=== PATIENT | female | born 1935 | race Caucasian/White ===

== ENCOUNTER 2016-09-10 10:34 | Emergency (ER) | payer MEDICARE, OTHER ==
[~2016-09-10] VITALS: Ht 165.1 cm; Wt 68.0 kg
[~2016-09-10 10:34] MED LIST: ALN70T; ALN70T PO; ASP325T; ASP81TEC PO; CALC-80 PO; CALC600T PO; CARV3.12; CARV6.252 PO; CLOP75TA PO; CRAN1TAB PO; DILT60TA PO; DLT30T PO; FAMO20TA13 PO; FRSM20T PO; ISM30TCR PO; ISOS30TA3 PO; MEXI200C PO; NIA500ERT PO; NIAC100045 PO; OMG1KC PO; PNT40TEC; POTA10CA43 PO; PRAV80TA2 PO; PROVASTATIN; RAMI10CA PO; RANI150C11 PO; RANI75TA30 PO; RMP5C PO; RNT150T PO
--- NOTE | 2016-09-10 11:59 | ED Lower Extremity ---
General Chief Complaint: Lower Extremity Stated Complaint: FALL/LEFT FOOT PAIN Nursing Triage Note: c/o pain/swelling to left foot/ankle. Pt accidently sat on her foot 3 weeks ago. Nursing Sepsis Screen: No Definite Risk Source: patient Exam Limitations: no limitations History of Present Illness Time seen by provider: 11:43 Initial Comments Here with report of left foot and ankle pain. States that she was sitting on her foot about 3 weeks ago and apparently her foot fell asleep. She then stood and rolled her foot medially. She complains of pain to the mid foot and lateral ankle. Denies other injury. States that has been having continued pain and swelling since onset of injury. Onset: other (3 weeks) Severity: mild, moderate Pain/Injury Location: left foot, left ankle Method of Injury: twisted Modifying Factors: Improves With Immobilization, Worse With Movement Allergies and Home Medications Allergies Coded Allergies: Penicillins (Unverified Allergy, Mild, 04/19/09) Home Medications Alendronate Sodium 70 Mg Tab 70 MG PO FRIDAY (Reported) Aspirin 81 Mg Tabec 81 MG PO HS (Reported) Calcium Carbonate/Vitamin D3 1 Each Tablet 1 TAB PO TID (Reported) Carvedilol 6.25 Mg Tablet 6.25 MG PO BID (Reported) Clopidogrel Bisulfate 75 Mg Tablet 75 MG PO DAILY (Reported) Cranberry Ext/C/L. Sporogenes 1 Each Tablet 1 TAB PO DAILY (Reported) Furosemide 20 Mg Tab #30 10 MG PO DAILY@0700 Prescribed by: LUZ BARROW on 11/09/13 1458 Isosorbide Mononitrate 30 Mg Tab.sr.24h 30 MG PO DAILY (Reported) [place] 3 Polyunsat Fatty Acids 1,000 Mg Cap 1,000 MG PO TID (Reported) Potassium Chloride 10 Meq Capsule.sa #1 10 MEQ PO DAILY Prescribed by: LUZ BARROW on 11/09/13 1504 Ranitidine Hcl 150 Mg Capsule #1 150 MG PO BID Prescribed by: LUZ BARROW on 11/09/13 1504 Constitutional: see HPI Respiratory: no symptoms reported Cardiovascular: no symptoms reported Musculoskeletal: see HPI joint pain joint swelling muscle pain Skin: no symptoms reported Past Upztnki-Mhwrfk-Yyalti Hx Patient Social History Alcohol Use: Denies Use Recreational Drug Use: No Smoking Status: Never a Smoker Recent Foreign Travel: No Contact w/Someone Who Travel: No Recent Infectious Disease Expo: No Recent Hopitalizations: No Physical Abuse Screen: No Sexual Abuse: No Immunizations Up To Date Date of Pneumonia Vaccine: Sep 01, 2008 Date of Influenza Vaccine: Jun 01, 2013 Surgeries HX Surgeries: Yes (cardiac stents) Surgeries: Appendectomy, Hysterectomy Respiratory Hx Respiratory Disorders: No Cardiovascular Hx Cardiac Disorders: Yes (STENTS X 4, CHF) Cardiac Disorders: Heart Attack Neurological Hx Neurological Disorders: No Reproductive System Hx Reproductive Disorders: No Genitourinary Hx Genitourinary Disorders: Yes Genitourinary Disorders: UTI-Chronic Gastrointestinal Hx Gastrointestinal Disorders: No Musculoskeletal Hx Musculoskeletal Disorders: No Endocrine Hx Endocrine Disorders: No HEENT HX ENT Disorders: No Cancer Hx Cancer: Yes (BASIL CELL CARCINOMA) Psychosocial Hx Psychiatric Problems: No Integumentary HX Skin/Integumentary Disorder: No Blood Transfusions Hx Blood Disorders: No Reviewed Nursing Assessment Reviewed/Agree w Nursing PMH: Yes Family Medical History Significant Family History: Heart Disease Physical Exam Vital Signs Vital Sign - Last 12Hours 09/10/16 10:52 Temp 97.2 Pulse 70 Resp 16 B/P 124/95 Pulse Ox 98 O2 Delivery Room Air Capillary Refill : Less Than 3 Seconds General Appearance: WD/WN no apparent distress Cardiovascular: regular rate, rhythm no murmur Respiratory: lungs clear normal breath sounds Ankles: right ankle non-tender, right ankle normal inspection, right ankle normal range of motion, left ankle soft tissue tenderness (mild lateral aspect) , left ankle swelling (mild) Feet: left foot pain (mild midfoot and near great toe.), left foot soft tissue tenderness, left foot swelling (mild to the area of the mid and distal foot) Neurologic/Psychiatric: alert oriented x 3 Skin: normal color warm/dry Progress/Results/Core Measures Results/Orders My Orders Orders-SCOUT CHANEL MD Foot, Left, 3 Views (09/10/16 10:59) Ankle, Left, 3 Views (09/10/16 10:59) Vital Signs/I&O Vital Sign - Last 12Hours 09/10/16 10:52 Temp 97.2 Pulse 70 Resp 16 B/P 124/95 Pulse Ox 98 O2 Delivery Room Air Blood Pressure Mean: 105 Progress Note : Progress Note Seen and evaluated. X-ray left foot and ankle. Monitor patient. Applied boot to left leg. Case discussed with Dr. grim. Discharged home with return precautions. Patient verbalize understanding instructions and agreement with plan. Diagnostic Imaging Diagonstic Imaging: Xray Plain Films/CT/US/NM/MRI: ankle Comments NAME: MORENA MARTINEZ [facility] REC#: [id number] PT STATUS: REG ER : 1935 PHYSICIAN: SCOUT CHANEL MD ADMIT DATE: 09/10/16/ER Signed Date of Exam: 09/10/16 ANKLE, LEFT, 3 VIEWS 3 views of the left ankle. INDICATION: Left ankle pain. FINDINGS: There is no fracture, dislocation, or radiopaque foreign body. The ankle mortise is normal in configuration. IMPRESSION: Unremarkable exam. Dictated by: Dictated on workstation # [id number] Dict: 09/10/16 1201 Trans: 09/10/16 1210 JV [id number] Interpreted by: JOSE CLARK MD Electronically signed by:JOSE CLARK MD 09/10/16 1212 Reviewed: Reviewed by De Diagonstic Imaging: Xray Plain Films/CT/US/NM/MRI: other (foot) Comments VIA [facility] [place], [place] NAME: MORENA MARTINEZ [facility] REC#: [id number] PT STATUS: REG ER : 1935 PHYSICIAN: SCOUT CHANEL MD ADMIT DATE: 09/10/16/ER Draft Date of Exam:09/10/16 FOOT, LEFT, 3 VIEWS INDICATION: Three weeks ago, patient rolled ankle when she got up off of a chair, foot was asleep. Now with pain and swelling on the fifth metatarsal side. FINDINGS: 3 views of the left foot demonstrate normal ossification. An osteophyte or small avulsion off of the navicular bone is seen on the lateral view. The fifth metatarsal appears normal. IMPRESSION: There is an osteophyte or small avulsion off of the navicular bone. This is seen on the lateral view only. Dictated on workstation # [id number] Dict: 09/10/16 1157 Trans: 09/10/16 1222 JV [id number] Interpreted by: LOS TOVAR MD Electronically signed by: Reviewed: Reviewed by Me Departure Impression Impression: Primary Impression: Strain of left ankle and foot Qualified Code: S96.912A - Strain of unspecified muscle and tendon at ankle and foot level, left foot, initial encounter Disposition: 01 HOME, SELF-CARE Condition: Stable Departure-Patient Inst. Decision time for Depature: 12:38 Referrals: GORDO OVERTON DO (PCP/Family) Primary Care Physician CYRUS SALEEM DO Patient Instructions: Sprain (DC) Add. Discharge Instructions: All discharge instructions reviewed with patient and/or family. Voiced understanding. You may wear the boot to the left foot as needed while walking for the next several days and then as needed. Follow-up with the orthopedic surgeon as needed. You may follow up with your doctor later this week or early next week for recheck and further evaluation as well. You may take ibuprofen 400 mg every 8 hours as needed for pain. You may use ice packs to the affected area as needed. Return for worse pain, fever, vomiting, swelling, weakness, breathing problems or other concerns as needed. Copy Copies To 1: GORDO OVERTON TIMOTHY D MD Sep 10, 2016 11:59
--- NOTE | 2016-09-10 12:05 | Diagnostic Imaging Report ---
3 views of the left ankle. INDICATION: Left ankle pain. FINDINGS: There is no fracture, dislocation, or radiopaque foreign body. The ankle mortise is normal in configuration. IMPRESSION: Unremarkable exam. Dictated by: Dictated on workstation # [id number]
--- NOTE | 2016-09-10 12:22 | Diagnostic Imaging Report ---
INDICATION: Three weeks ago, patient rolled ankle when she got up off of a chair, foot was asleep. Now with pain and swelling on the fifth metatarsal side. FINDINGS: 3 views of the left foot demonstrate normal ossification. An osteophyte or small avulsion off of the navicular bone is seen on the lateral view. The fifth metatarsal appears normal. IMPRESSION: There is an osteophyte or small avulsion off of the navicular bone. This is seen on the lateral view only. Dictated by: Dictated on workstation # [id number]
[2016-09-10 13:05] VITALS: BP 126/90
[2016-09-10] MEDS ORDERED: [UNRECOGNIZED DRUG - OTHER] (13:05)
== END 2016-09-10 13:07 | disposition home or self-care (01) ==
LOC: EDUNIT# 10:34 → ER 10:36
DX: S93.402A Sprain of unspecified ligament of left ankle, initial encounter (principal); Z79.82 Long term (current) use of aspirin; Z79.899 Other long term (current) drug therapy; X58.XXXA Exposure to other specified factors, initial encounter; Y92.009 Unspecified place in unspecified non-institutional (private) residence as the place of occurrence of the external cause; Y99.8 Other external cause status
CPT/HCPCS: 73610; 73630

== ENCOUNTER 2017-08-17 08:36 | Inpatient (IN) | payer MEDICARE, OTHER ==
[~2017-08-17] VITALS: Ht 165.1 cm; Wt 66.1 kg
[2017-08-17] VITALS (13 sets, daily range): BP systolic 88–142; BP diastolic 48–83
[~2017-08-17 08:36] MED LIST changes: +[UNRECOGNIZED DRUG - OTHER]
--- OUTSIDE RECORDS SUMMARY | 2017-08-17 08:42 | XMS REPORT | Clinical Summary ---
Author Author [facility] Organization [facility] Address Unknown Phone Unavailable Care Team Providers Care Die Equipment Operator Name Role Phone PCP Unavailable Source Comments Some departments are not documenting in the electronic medical record. If you do not see the information that you expected, contact Release of Information in the Health Information Management department at [phone] for further assistance in locating additional records.[facility] Allergies Active Allergy Reactions Severity Noted Date Comments Penicillins RASH 01/12/2014 Current Medications Prescription Sig. Disp. Refills Start End Date Status Date furosemide (LASIX) 20 mg Take 10 mg by mouth Active tablet daily. clopiDOGrel (PLAVIX) 75 Take 75 mg by mouth Active mg tablet daily. isosorbide mononitrate SR Take 30 mg by mouth every Active (IMDUR) 30 mg tablet morning. ranitidine(+) (ZANTAC) Take 300 mg by mouth Active 150 mg tablet twice daily. carvedilol (COREG) 6.25 Take 12.5 mg by mouth Active mg tablet twice daily with meals. potassium chloride SR Take 10 mEq by mouth Active (K-DUR) 10 mEq tablet daily. alendronate (FOSAMAX) 70 Take 70 mg by mouth every Active mg tablet 7 days. [place]-3 Fatty Take 1 Cap by mouth three Active Acids-Vitamin E (FISH times daily. OIL) 1,000 mg cap aspirin EC 81 mg tablet Take 81 mg by mouth Active daily. ASCORBIC ACID/VITAMIN E Take 300 mg by mouth. Active (CRANBERRY CONCENTRATE PO) Active Problems Problem Noted Date CAD (coronary artery disease) 01/12/2014 Overview: 05/03/2009 - LHC: 2.25 x 32 mm Atom Taxus up to 2.9 in Mid LAD and 3.25 x 12 mm Taxus up to 3.8 to prox LAD. [facility] 02/19/2010 - LHC: 2.5 x 15 mm [place], 2.5 x 20 mm Promus and 2.5 x 18 mm Promus to mid LAD [facility] 09/20/2013 - [facility]: No intervention. [facility] 11/08/2013 - Cardiac Catheterization: LVEF ~ 60%. LA size - 4.9 cm. Mild hypertrophy noted at the base of the septum giving the septum a sigmoid shape. Systolic function appeared to be normal. Advanced diastolic dysfunction is suggested by doppler. LA dilatation. Moderate to moderately severe MR and Mild TR> PAP ~ 35 mmHg. [facility] PVC's (premature ventricular contractions) 01/12/2014 Overview: With bigeminy. Intolerant to Mexitil and Toprol due to significant nausea. HTN (hypertension) 01/12/2014 HLD (hyperlipidemia) 01/12/2014 Carotid artery stenosis 01/12/2014 Overview: 01/07/2012 - Carotid Ultrasound: Mild 1 -39% stenosis bilaterally. [facility] Social History Tobacco Use Types Packs/Day Years Used Date Former Smoker Smokeless Tobacco: Never Used Alcohol Use Drinks/Week oz/Week Comments Yes Very Occasionally (1-2 drinks yearly) Sex Assigned at Date Recorded Not on file Last Filed Vital Signs Vital Sign Reading Time Taken Blood Pressure 148/82 01/12/2014 1:21 PM CDT Pulse 58 01/12/2014 1:21 PM CDT Temperature - - Respiratory Rate - - Oxygen Saturation - - Inhaled Oxygen - - Concentration Weight 63.3 kg (139 lb 9.6 oz) 01/12/2014 1:11 PM CDT Height 165.1 cm (5' 5") 01/12/2014 1:11 PM CDT Body Mass Index 23.23 01/12/2014 1:11 PM CDT Plan of Treatment Health Maintenance Due Date Last Done Comments PHYSICAL (COMPREHENSIVE) 12/01/1942 EXAM PERTUSSIS VACCINE 12/01/1946 TETANUS VACCINE 12/01/1952 SHINGLES VACCINE 1995 OSTEOPOROSIS SCREENING 12/01/2000 PREVNAR/PNEUMOVAX (#1) 12/01/2000 INFLUENZA VACCINE 04/01/2017 Results Not on filefrom Last 3 Months
--- OUTSIDE RECORDS SUMMARY | 2017-08-17 08:43 | XMS REPORT | Clinical Summary ---
Author Author User, [employer] Organization Giovana Hernandez DO, FACP Address Unknown Phone Allergies, Adverse Reactions, Alerts Allergy Name Reaction Description Start Date Severity Status Provider PENICILLIN Critical Active Giovana Hernandez Conditions or Problems Problem Name Problem Code Onset Date Status Entry Date Provider Comment Standard Description Annotate CHF 428.0 Active Giovana Hernandez Congestive heart failure, unspecified CORONARY ATHEROSCLEROSIS, [place] VESSEL 414.01 Active Giovana Hernandez Coronary atherosclerosis of [place] coronary artery AMI 410.90 Active Giovana Hernandez Acute myocardial infarction, unspecified site, episode of care unspecified GOUT 274.9 Active Giovana Hernandez Gout, unspecified GERD 530.81 Active Giovana Hernandez Esophageal reflux ANGINA 413.9 Active Giovana Hernandez Other and unspecified angina pectoris OSTEOPOROSIS NEC 733.09 Active Giovana Hernandez Other osteoporosis UTI 599.0 Resolved Giovana Hernandez Urinary tract infection, site not specified 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 2014 PREDNISONE 07514517118 No Longer Active Giovana Hernandez TYLENOL WITH CODEINE #3 300-30 MG TABS 1 PO BID prn back pain ACETAMINOPHEN-CODEINE 72892697514 Active Giovanadelphine Hernandez ULTRAM 50 MG TAB 1 PO TID prn back pain TRAMADOL HCL 89590008062 Active Giovanadelphine Hernandez PREMARIN 0.625 MG/GM CREA apply a small amount around urethra every night for 2 weeks then twice weekly ESTROGENS, CONJUGATED VAGINAL 80682554411 Active Giovana Hernandez CRANBERRY 300 MG TABS 1 PO DAILY CRANBERRY 70684299076 Active Giovana Hernandez ASPIRIN 81 MG TAB 1 PO DAILY ASPIRIN 69913930371 Active Giovana Hernandez FISH OIL 1000 MG CAPS 3 PO DAILY [place]-3 FATTY ACIDS 43619963776 Active Giovanadelphine Hernandez CIPRO 500 MG TABS 1 PO BID CIPROFLOXACIN HCL 73397944472 No Longer Active Giovanadelphine Hernandez LIPITOR 10 MG TAB 1/2 PO DAILY ATORVASTATIN CALCIUM 85876662467 Active Giovana Hernandez FOSAMAX 70 MG TABS 1 PO WEEKLY ALENDRONATE SODIUM 84550351403 Active Brittani Doherty POTASSIUM CHLORIDE ER 10 MEQ CR-TABS 1 PO DAILY POTASSIUM CHLORIDE 06013288539 Active Giovana Hernandez FENOFIBRATE 145 MG TABS 1 PO DAILY FENOFIBRATE 77306791805 Active Giovana Hernandez COREG 6.25 MG TABS 1 PO BID CARVEDILOL 25404937395 Active Giovana Hernandez ZANTAC 150 MG TABS 1 PO BID RANITIDINE HCL 53019893320 Active Giovana Hernandez ISOSORBIDE MONONITRATE ER 30 MG [id number] 1 PO DAILY ISOSORBIDE MONONITRATE 30909935370 Active Brittani Doherty PLAVIX 75 MG TABS 1 PO QD CLOPIDOGREL BISULFATE 37391877328 Active Giovana Jacinta Mary FUROSEMIDE 20 MG TAB 1/2 PO DAILY FUROSEMIDE 01409599963 Active Giovana Hernandez Immunizations Vaccine Administration Date Value Standard Description pneumococcal immunization administered Done pneumococcal polysaccharide vaccine, 23 valent Vital Signs Date Name Value Unit Range Description blood pressure, diastolic - 8462-4 60 mm[Hg] BP james blood pressure, systolic - 8480-6 130 mm[Hg] BP sys pulse rate E&M - 8867-4 60 /min Heart rate respiratory rate E&M - 9279-1 14 /min Resp rate weight E&M - 3141-9 145 [lb_av] Weight Measured blood pressure, diastolic - 8462-4 62 mm[Hg] BP james blood pressure, systolic - 8480-6 128 mm[Hg] BP sys pulse rate E&M - 8867-4 68 /min Heart rate respiratory rate E&M - 9279-1 14 /min Resp rate weight E&M - 3141-9 146 [lb_av] Weight Measured blood pressure, diastolic - 8462-4 78 mm[Hg] BP james blood pressure, systolic - 8480-6 134 mm[Hg] BP sys pulse rate E&M - 8867-4 65 /min Heart rate respiratory rate E&M - 9279-1 14 /min Resp rate weight E&M - 3141-9 142 [lb_av] Weight Measured blood pressure, diastolic - 8462-4 82 mm[Hg] BP james blood pressure, systolic - 8480-6 130 mm[Hg] BP sys height E&M - 8302-2 66 [in_us] Bdy height pulse rate E&M - 8867-4 66 /min Heart rate respiratory rate E&M - 9279-1 14 /min Resp rate weight Kevin&Jose - 3141-9 140 [lb_av] Weight Measured Diagnostic Results Date Name Value Unit Range Description Clinical Lists Update: CBC,CMP,TSH,FLP - Chemistry Estimated Glomerular Filtration Rate (calc) 60 mL/min/1.73m2 HDL cholesterol, serum 78.0 mg/dL albumin, serum 4.1 g/dL cholesterol/HDL ratio, serum, percent 2.2 anion gap, serum 8 sodium, serum 139 mmol/L alkaline phosphatase, serum 31 U/L triglyceride, serum, fasting 56 mg/dL urea nitrogen, blood 22 mg/dL bilirubin, serum, total 0.6 mg/dL calcium, serum 8.9 mg/dL alanine aminotransferase (SGPT), serum 17 U/L chloride, serum 107 mmol/L aspartate aminotransferase (SGOT), serum 23 U/L cholesterol, serum 174 mg/dL protein, total, serum 6.1 g/dL potassium, serum 4.3 mmol/L carbon dioxide, venous blood 28.0 mmol/L LDL cholesterol, serum 85 mg/dL thyroid stimulating hormone, serum 2.97 u[iU]/mL creatinine, serum 1.0 mg/dL glucose, plasma fasting 87 mg/dL Clinical Lists Update: CBC,CMP,TSH,FLP - Hematology hemoglobin, blood 12.3 g/dL hematocrit, blood 40 % platelet count 123 10*3/mm3 erythrocyte (RBC) count 4.33 10*6/mm3 leukocyte count, blood 5.6 10*3/mm3 mean corpuscular volume, RBC 93 fL red blood cell distribution width 14.7 % Clinical Lists Update: LFT,FLP [facility] - Chemistry bilirubin, serum, total 0.5 mg/dL alkaline phosphatase, serum 31 U/L triglyceride, serum, fasting 44 mg/dL albumin, serum 4.0 g/dL cholesterol/HDL ratio, serum, percent 2.2 bilirubin, serum, direct 0.1 mg/dL aspartate aminotransferase (SGOT), serum 19 U/L protein, total, serum 6.1 g/dL cholesterol, serum 165 mg/dL LDL cholesterol, serum 81 mg/dL HDL cholesterol, serum 75.0 mg/dL alanine aminotransferase (SGPT), serum 28 U/L Clinical Lists Update: UA - Urinalysis blood in urine (hemoglobin) by dipstick neg mucus on urinalysis none epithelial cells, urine 5-10 /[LPF] hyaline casts, urine none /[LPF] bacteria, urine microscopy trace RBC urine by microscopy none WBC urine on microscopy none {Cells}/[HPF] appearance, urine Clear Yellow urobilinogen, urine, semiquantitative (dipstick) 0.2 specific gravity, urine 1.015 pH, urine, semiquantitative 5.0 nitrite, urine, semiquantitative neg ketones, urine, by test strip neg bilirubin, urine neg glucose, urine, semiquantitative neg protein, urine, semiquantitative (dipstick) neg Office Visit: First Visit - Chemistry Estimated Glomerular Filtration Rate (calc) 59 mL/min/1.73m2 glucose, plasma fasting 90 mg/dL albumin, serum 4.1 g/dL albumin, serum 4.1 g/dL alkaline phosphatase, serum 40 U/L alkaline phosphatase, serum 90 U/L urea nitrogen, blood 20 mg/dL calcium, serum 9.3 mg/dL cholesterol/HDL ratio, serum, percent 3.3 cholesterol/HDL ratio, serum, percent 2.2 anion gap, serum 13 sodium, serum 138 mmol/L triglyceride, serum, fasting 85 mg/dL triglyceride, serum, fasting 54 mg/dL triglyceride, serum, fasting 59 mg/dL bilirubin, serum, total 0.5 mg/dL bilirubin, serum, total 0.5 mg/dL alanine aminotransferase (SGPT), serum 21 U/L alanine aminotransferase (SGPT), serum 14 U/L alanine aminotransferase (SGPT), serum 14 U/L aspartate aminotransferase (SGOT), serum 23 U/L aspartate aminotransferase (SGOT), serum 23 U/L aspartate aminotransferase (SGOT), serum 23 U/L protein, total, serum 6.3 g/dL protein, total, serum 6.3 g/dL potassium, serum 5.2 mmol/L LDL cholesterol, serum 144 mg/dL LDL cholesterol, serum 84 mg/dL LDL cholesterol, serum 84 mg/dL HDL cholesterol, serum 69.0 mg/dL HDL cholesterol, serum 81.0 mg/dL HDL cholesterol, serum 81 mg/dL bilirubin, serum, direct 0.2 mg/dL creatinine, serum 1.0 mg/dL carbon dioxide, venous blood 26.0 mmol/L cholesterol, serum 230 mg/dL cholesterol, serum 176 mg/dL cholesterol, serum 176 mg/dL chloride, serum 104 mmol/L Office Visit: First Visit - Hematology platelet count 124 10*3/mm3 erythrocyte (RBC) count 4.61 10*6/mm3 leukocyte count, blood 6.8 10*3/mm3 mean corpuscular volume, RBC 93 fL red blood cell distribution width 14.2 % hemoglobin, blood 13.1 g/dL hematocrit, blood 43 % Encounters Code Encounter Date Provider Facility CPT-05060 Ofc Vst, Est Level III 15:49:28 CDT Giovana Hernandez DO, FACP CPT-35113 Ofc Vst, Est Level III 17:09:21 CDT Giovana Hernandez DO, FACP CPT-04064 Ofc Vst, New Level III 16:03:15 CDT Giovana Hernandez DO, FACP Procedures Code Procedure Name Date Entry Date Standard Description CPT-G0439 Medicare Annual Wellness Visit 20:04:23 CDT
--- OUTSIDE RECORDS SUMMARY | 2017-08-17 08:43 | XMS REPORT | Clinical Summary ---
Author Author User, [employer] Organization Giovana Hernandez DO, FACP Address Unknown Phone Allergies, Adverse Reactions, Alerts Allergy Name Reaction Description Start Date Severity Status Provider PENICILLIN Critical Active Giovana Hernandez Conditions or Problems Problem Name Problem Code Onset Date Status Entry Date Provider Comment Standard Description Annotate CHF 428.0 Active Giovana Hernandez Congestive heart failure, unspecified CORONARY ATHEROSCLEROSIS, [place] VESSEL 414.01 Active Giovana Hernandez Coronary atherosclerosis of [place] coronary artery AMI 410.90 Active Giovana Hernandez [...] once daily for 5 days. 2014 PREDNISONE 86988044182 No Longer Active Giovana Hernandez TYLENOL WITH CODEINE #3 300-30 MG TABS 1 PO BID prn back pain ACETAMINOPHEN-CODEINE 43231049206 Active Giovanadelphine Hernandez ULTRAM 50 MG TAB 1 PO TID prn back pain TRAMADOL HCL 27942583775 Active Giovanadelphine Hernandez PREMARIN 0.625 MG/GM CREA apply a small amount around urethra every night for 2 weeks then twice weekly ESTROGENS, CONJUGATED VAGINAL 63510281375 Active Giovana Hernandez CRANBERRY 300 MG TABS 1 PO DAILY CRANBERRY 35750210802 Active Giovana Hernandez ASPIRIN 81 MG TAB 1 PO DAILY ASPIRIN 56170630671 Active Giovana Hernandez FISH OIL 1000 MG CAPS 3 PO DAILY [place]ME[place]-3 FATTY ACIDS 05407928227 Active Giovanadelphine Hernandez CIPRO 500 MG TABS 1 PO BID CIPROFLOXACIN HCL 19056001484 No Longer Active Giovanadelphine Hernandez LIPITOR 10 MG TAB 1/2 PO DAILY ATORVASTATIN CALCIUM 01178561996 Active Giovana Hernandez FOSAMAX 70 MG TABS 1 PO WEEKLY ALENDRONATE SODIUM 88460435966 Active Brittani Doherty POTASSIUM CHLORIDE ER 10 MEQ CR-TABS 1 PO DAILY POTASSIUM CHLORIDE 12612594496 Active Giovana Hernandez FENOFIBRATE 145 MG TABS 1 PO DAILY FENOFIBRATE 14654548408 Active Giovana Hernandez COREG 6.25 MG TABS 1 PO BID CARVEDILOL 10183877839 Active Giovana Hernandez ZANTAC 150 MG TABS 1 PO BID RANITIDINE HCL 07814990469 Active Giovana Hernandez ISOSORBIDE MONONITRATE ER 30 MG [id number] 1 PO DAILY ISOSORBIDE MONONITRATE 11580242238 Active Brittani Doherty PLAVIX 75 MG TABS 1 PO QD CLOPIDOGREL BISULFATE 39227840479 Active Giovana Jacinta Mary FUROSEMIDE 20 MG TAB 1/2 PO DAILY FUROSEMIDE 67221012958 Active Giovana Hernandez Immunizations Vaccine Administration Date [...] % Encounters Code Encounter Date Provider Facility CPT-38858 Ofc Vst, Est Level III 15:49:28 CDT Giovana Hernandez DO, FACP CPT-88411 Ofc Vst, Est Level III 17:09:21 CDT Giovana Hernandez DO, FACP CPT-57270 Ofc Vst, New Level III 16:03:15 CDT Giovana Hernandez DO, FACP Procedures Code Procedure Name Date Entry Date Standard Description CPT-G0439 Medicare Annual Wellness Visit 20:04:23 CDT
--- OUTSIDE RECORDS SUMMARY | 2017-08-17 08:43 | XMS REPORT | Clinical Summary ---
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 2014 PREDNISONE [id number] No Longer Active Giovana Hernandez TYLENOL WITH CODEINE #3 300-30 MG TABS 1 PO BID prn back pain ACETAMINOPHEN-CODEINE 13406166807 Active Giovanadelphine Hernandez ULTRAM 50 MG TAB 1 PO TID prn back pain TRAMADOL HCL 68417379253 Active Giovanadelphine Hernandez PREMARIN 0.625 MG/GM CREA apply a small amount around urethra every night for 2 weeks then twice weekly ESTROGENS, CONJUGATED VAGINAL 82895933780 Active Giovana Hernandez CRANBERRY 300 MG TABS 1 PO DAILY CRANBERRY 28242872997 Active Giovana Hernandez ASPIRIN 81 MG TAB 1 PO DAILY ASPIRIN 44179122082 Active Giovana Hernandez FISH OIL 1000 MG CAPS 3 PO DAILY OMEGA-3 FATTY ACIDS 04304083466 Active Giovanadelphine Hernandez CIPRO 500 MG TABS 1 PO BID CIPROFLOXACIN HCL 00599217135 No Longer Active Giovanadelphine Hernandez LIPITOR 10 MG TAB 1/2 PO DAILY ATORVASTATIN CALCIUM 44336825528 Active Giovana Hernandez FOSAMAX 70 MG TABS 1 PO WEEKLY ALENDRONATE SODIUM 21440752778 Active Brittani Doherty POTASSIUM CHLORIDE ER 10 MEQ CR-TABS 1 PO DAILY POTASSIUM CHLORIDE 06075991775 Active Giovana Hernandez FENOFIBRATE 145 MG TABS 1 PO DAILY FENOFIBRATE 87988290911 Active Giovana Hernandez COREG 6.25 MG TABS 1 PO BID CARVEDILOL 19491702872 Active Giovana Hernandez ZANTAC 150 MG TABS 1 PO BID RANITIDINE HCL 71090437466 Active Giovana Hernandez ISOSORBIDE MONONITRATE ER 30 MG [id number] 1 PO DAILY ISOSORBIDE MONONITRATE 57643093736 Active Brittani Doherty PLAVIX 75 MG TABS 1 PO QD CLOPIDOGREL BISULFATE 27538447951 Active Giovana Jacinta Mary FUROSEMIDE 20 MG TAB 1/2 PO DAILY FUROSEMIDE 33111013793 Active Giovana Hernandez Immunizations Vaccine Administration Date [...] % Encounters Code Encounter Date Provider Facility CPT-19085 Ofc Vst, Est Level III 15:49:28 CDT Giovana Hernandez DO, FACP CPT-67724 Ofc Vst, Est Level III 17:09:21 CDT Giovana Hernandez DO, FACP CPT-45257 Ofc Vst, New Level III 16:03:15 CDT Giovana Hernandez DO, FACP Procedures Code Procedure Name Date Entry Date Standard Description CPT-G0439 Medicare Annual Wellness Visit 20:04:23 CDT
--- OUTSIDE RECORDS SUMMARY | 2017-08-17 08:44 | XMS REPORT | Clinical Summary ---
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 2014 PREDNISONE [id number] No Longer Active Giovana Hernandez TYLENOL WITH CODEINE #3 300-30 MG TABS 1 PO BID prn back pain ACETAMINOPHEN-CODEINE 69294976980 Active Giovanadelphine Heranndez ULTRAM 50 MG TAB 1 PO TID prn back pain TRAMADOL HCL 86936025024 Active Giovanadelphine Hernandez PREMARIN 0.625 MG/GM CREA apply a small amount around urethra every night for 2 weeks then twice weekly ESTROGENS, CONJUGATED VAGINAL 39740952800 Active Giovana Hernandez CRANBERRY 300 MG TABS 1 PO DAILY CRANBERRY 62423881289 Active Giovana Hernandez ASPIRIN 81 MG TAB 1 PO DAILY ASPIRIN 38651105589 Active Giovana Hernandez FISH OIL 1000 MG CAPS 3 PO DAILY OMEGA-3 FATTY ACIDS 16507104725 Active Giovanadelphine Hernandez CIPRO 500 MG TABS 1 PO BID CIPROFLOXACIN HCL 33139501520 No Longer Active Giovanadelphine Hernandez LIPITOR 10 MG TAB 1/2 PO DAILY ATORVASTATIN CALCIUM 71111915316 Active Giovana Hernandez FOSAMAX 70 MG TABS 1 PO WEEKLY ALENDRONATE SODIUM 44388728691 Active Brittani Doherty POTASSIUM CHLORIDE ER 10 MEQ CR-TABS 1 PO DAILY POTASSIUM CHLORIDE 25879613072 Active Giovana Hernandez FENOFIBRATE 145 MG TABS 1 PO DAILY FENOFIBRATE 65088475467 Active Giovana Hernandez COREG 6.25 MG TABS 1 PO BID CARVEDILOL 60527793095 Active Giovana Hernandez ZANTAC 150 MG TABS 1 PO BID RANITIDINE HCL 56730961465 Active Giovana Hernandez ISOSORBIDE MONONITRATE ER 30 MG [id number] 1 PO DAILY ISOSORBIDE MONONITRATE 43529144602 Active Brittani Doherty PLAVIX 75 MG TABS 1 PO QD CLOPIDOGREL BISULFATE 45544835389 Active Giovana Jacinta Mary FUROSEMIDE 20 MG TAB 1/2 PO DAILY FUROSEMIDE 97333096521 Active Giovana Hernandez Immunizations Vaccine Administration Date [...] % Encounters Code Encounter Date Provider Facility CPT-91522 Ofc Vst, Est Level III 15:49:28 CDT Giovana Hernandez DO, FACP CPT-34829 Ofc Vst, Est Level III 17:09:21 CDT Giovana Hernandez DO, FACP CPT-91016 Ofc Vst, New Level III 16:03:15 CDT Giovana Hernandez DO, FACP Procedures Code Procedure Name Date Entry Date Standard Description CPT-G0439 Medicare Annual Wellness Visit 20:04:23 CDT
--- OUTSIDE RECORDS SUMMARY | 2017-08-17 08:44 | XMS REPORT | Clinical Summary ---
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 2014 PREDNISONE [id number] No Longer Active Giovana Hernandez TYLENOL WITH CODEINE #3 300-30 MG TABS 1 PO BID prn back pain ACETAMINOPHEN-CODEINE 33293806150 Active Giovanadelphine Hernandez ULTRAM 50 MG TAB 1 PO TID prn back pain TRAMADOL HCL 17183633605 Active Giovanadelphine Hernandez PREMARIN 0.625 MG/GM CREA apply a small amount around urethra every night for 2 weeks then twice weekly ESTROGENS, CONJUGATED VAGINAL 63851798439 Active Giovana Hernandez CRANBERRY 300 MG TABS 1 PO DAILY CRANBERRY 77496007891 Active Giovana Hernandez ASPIRIN 81 MG TAB 1 PO DAILY ASPIRIN 50041792389 Active Giovana Hernandez FISH OIL 1000 MG CAPS 3 PO DAILY OMEGA-3 FATTY ACIDS 71597139695 Active Giovanadelphine Hernandez CIPRO 500 MG TABS 1 PO BID CIPROFLOXACIN HCL 79069525691 No Longer Active Giovanadelphine Hernandez LIPITOR 10 MG TAB 1/2 PO DAILY ATORVASTATIN CALCIUM 43887945447 Active Giovana Hernandez FOSAMAX 70 MG TABS 1 PO WEEKLY ALENDRONATE SODIUM 02963317507 Active Brittani Doherty POTASSIUM CHLORIDE ER 10 MEQ CR-TABS 1 PO DAILY POTASSIUM CHLORIDE 51313671092 Active Giovana Hernandez FENOFIBRATE 145 MG TABS 1 PO DAILY FENOFIBRATE 54332261079 Active Giovana Hernandez COREG 6.25 MG TABS 1 PO BID CARVEDILOL 68028466168 Active Giovana Hernandez ZANTAC 150 MG TABS 1 PO BID RANITIDINE HCL 58372383698 Active Giovana Hernandez ISOSORBIDE MONONITRATE ER 30 MG [id number] 1 PO DAILY ISOSORBIDE MONONITRATE 62612623216 Active Brittani Doherty PLAVIX 75 MG TABS 1 PO QD CLOPIDOGREL BISULFATE 20502787102 Active Giovana Jacinta Mary FUROSEMIDE 20 MG TAB 1/2 PO DAILY FUROSEMIDE 29918707448 Active Giovana Hernandez Immunizations Vaccine Administration Date [...] % Encounters Code Encounter Date Provider Facility CPT-96881 Ofc Vst, Est Level III 15:49:28 CDT Giovana Hernandez DO, FACP CPT-05277 Ofc Vst, Est Level III 17:09:21 CDT Giovana Hernandez DO, FACP CPT-03998 Ofc Vst, New Level III 16:03:15 CDT Giovana Hernandez DO, FACP Procedures Code Procedure Name Date Entry Date Standard Description CPT-G0439 Medicare Annual Wellness Visit 20:04:23 CDT
--- OUTSIDE RECORDS SUMMARY | 2017-08-17 08:45 | XMS REPORT | Clinical Summary ---
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 2014 PREDNISONE [id number] No Longer Active Giovana Hernandez TYLENOL WITH CODEINE #3 300-30 MG TABS 1 PO BID prn back pain ACETAMINOPHEN-CODEINE 51380350044 Active Giovanadelphine Hernandez ULTRAM 50 MG TAB 1 PO TID prn back pain TRAMADOL HCL 73713966130 Active Giovanadelphine Hernandez PREMARIN 0.625 MG/GM CREA apply a small amount around urethra every night for 2 weeks then twice weekly ESTROGENS, CONJUGATED VAGINAL 06000564958 Active Giovana Hernandez CRANBERRY 300 MG TABS 1 PO DAILY CRANBERRY 11505102036 Active Giovana Hernandez ASPIRIN 81 MG TAB 1 PO DAILY ASPIRIN 40777575647 Active Giovana Hernandez FISH OIL 1000 MG CAPS 3 PO DAILY OMEGA-3 FATTY ACIDS 67858723715 Active Giovanadelphine Hernandez CIPRO 500 MG TABS 1 PO BID CIPROFLOXACIN HCL 67669586039 No Longer Active Giovanadelphine Hernandez LIPITOR 10 MG TAB 1/2 PO DAILY ATORVASTATIN CALCIUM 03047238623 Active Giovana Hernandez FOSAMAX 70 MG TABS 1 PO WEEKLY ALENDRONATE SODIUM 25995321837 Active Brittani Doherty POTASSIUM CHLORIDE ER 10 MEQ CR-TABS 1 PO DAILY POTASSIUM CHLORIDE 74195328112 Active Giovana Hernandez FENOFIBRATE 145 MG TABS 1 PO DAILY FENOFIBRATE 89359844723 Active Giovana Hernandez COREG 6.25 MG TABS 1 PO BID CARVEDILOL 96394314910 Active Giovana Hernandez ZANTAC 150 MG TABS 1 PO BID RANITIDINE HCL 97418101066 Active Giovana Hernandez ISOSORBIDE MONONITRATE ER 30 MG [id number] 1 PO DAILY ISOSORBIDE MONONITRATE 00346835773 Active Brittani Doherty PLAVIX 75 MG TABS 1 PO QD CLOPIDOGREL BISULFATE 84960024567 Active Giovana Jacinta Mary FUROSEMIDE 20 MG TAB 1/2 PO DAILY FUROSEMIDE 54161584741 Active Giovana Hernandez Immunizations Vaccine Administration Date [...] % Encounters Code Encounter Date Provider Facility CPT-20830 Ofc Vst, Est Level III 15:49:28 CDT Giovana Hernandez DO, FACP CPT-42249 Ofc Vst, Est Level III 17:09:21 CDT Giovana Hernandez DO, FACP CPT-97348 Ofc Vst, New Level III 16:03:15 CDT Giovana Hernandez DO, FACP Procedures Code Procedure Name Date Entry Date Standard Description CPT-G0439 Medicare Annual Wellness Visit 20:04:23 CDT
--- OUTSIDE RECORDS SUMMARY | 2017-08-17 08:45 | XMS REPORT | Clinical Summary ---
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 2014 PREDNISONE [id number] No Longer Active Giovana Hernandez TYLENOL WITH CODEINE #3 300-30 MG TABS 1 PO BID prn back pain ACETAMINOPHEN-CODEINE 41047228128 Active Giovanadelphine Hernandez ULTRAM 50 MG TAB 1 PO TID prn back pain TRAMADOL HCL 50463895353 Active Giovanadelphine Hernandez PREMARIN 0.625 MG/GM CREA apply a small amount around urethra every night for 2 weeks then twice weekly ESTROGENS, CONJUGATED VAGINAL 14044524935 Active Giovana Hernandez CRANBERRY 300 MG TABS 1 PO DAILY CRANBERRY 74872320480 Active Giovana Hernandez ASPIRIN 81 MG TAB 1 PO DAILY ASPIRIN 69722915625 Active Giovana Hernandez FISH OIL 1000 MG CAPS 3 PO DAILY OMEGA-3 FATTY ACIDS 01506933865 Active Giovanadelphine Hernandez CIPRO 500 MG TABS 1 PO BID CIPROFLOXACIN HCL 56792615579 No Longer Active Giovanadelphine Hernandez LIPITOR 10 MG TAB 1/2 PO DAILY ATORVASTATIN CALCIUM 78633153352 Active Giovana Hernandez FOSAMAX 70 MG TABS 1 PO WEEKLY ALENDRONATE SODIUM 94821963947 Active Brittani Doherty POTASSIUM CHLORIDE ER 10 MEQ CR-TABS 1 PO DAILY POTASSIUM CHLORIDE 16004286314 Active Giovana Hernandez FENOFIBRATE 145 MG TABS 1 PO DAILY FENOFIBRATE 47430048447 Active Giovana Hernandez COREG 6.25 MG TABS 1 PO BID CARVEDILOL 03578031679 Active Giovana Hernandez ZANTAC 150 MG TABS 1 PO BID RANITIDINE HCL 50077812381 Active Giovana Hernandez ISOSORBIDE MONONITRATE ER 30 MG [id number] 1 PO DAILY ISOSORBIDE MONONITRATE 53995418185 Active Brittani Doherty PLAVIX 75 MG TABS 1 PO QD CLOPIDOGREL BISULFATE 74520225312 Active Giovana Jacinta Mary FUROSEMIDE 20 MG TAB 1/2 PO DAILY FUROSEMIDE 70491797410 Active Giovana Hernandez Immunizations Vaccine Administration Date [...] % Encounters Code Encounter Date Provider Facility CPT-81460 Ofc Vst, Est Level III 15:49:28 CDT Giovana Hernandez DO, FACP CPT-55382 Ofc Vst, Est Level III 17:09:21 CDT Giovana Hernandez DO, FACP CPT-83588 Ofc Vst, New Level III 16:03:15 CDT Giovana Hernandez DO, FACP Procedures Code Procedure Name Date Entry Date Standard Description CPT-G0439 Medicare Annual Wellness Visit 20:04:23 CDT
--- OUTSIDE RECORDS SUMMARY | 2017-08-17 08:45 | XMS REPORT | Clinical Summary ---
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 2014 PREDNISONE 99624820408 No Longer Active Giovana Hernandez TYLENOL WITH CODEINE #3 300-30 MG TABS 1 PO BID prn back pain ACETAMINOPHEN-CODEINE 23840879206 Active Giovanadelphine Hernandez ULTRAM 50 MG TAB 1 PO TID prn back pain TRAMADOL HCL 80908800969 Active Giovanadelphine Hernandez PREMARIN 0.625 MG/GM CREA apply a small amount around urethra every night for 2 weeks then twice weekly ESTROGENS, CONJUGATED VAGINAL 37889507210 Active Giovana Hernandez CRANBERRY 300 MG TABS 1 PO DAILY CRANBERRY 94477266284 Active Giovana Hernandez ASPIRIN 81 MG TAB 1 PO DAILY ASPIRIN 35121191050 Active Giovana Hernandez FISH OIL 1000 MG CAPS 3 PO DAILY OMEGA-3 FATTY ACIDS 29929561494 Active Giovanadelphine Hernandez CIPRO 500 MG TABS 1 PO BID CIPROFLOXACIN HCL 22794979920 No Longer Active Giovanadelphine Hernandez LIPITOR 10 MG TAB 1/2 PO DAILY ATORVASTATIN CALCIUM 80035905800 Active Giovana Hernandez FOSAMAX 70 MG TABS 1 PO WEEKLY ALENDRONATE SODIUM 44633400818 Active Brittani Doherty POTASSIUM CHLORIDE ER 10 MEQ CR-TABS 1 PO DAILY POTASSIUM CHLORIDE 06859512972 Active Giovana Hernandez FENOFIBRATE 145 MG TABS 1 PO DAILY FENOFIBRATE 55298462022 Active Giovana Hernandez COREG 6.25 MG TABS 1 PO BID CARVEDILOL 86315605756 Active Giovana Hernandez ZANTAC 150 MG TABS 1 PO BID RANITIDINE HCL 41414768614 Active Giovana Hernandez ISOSORBIDE MONONITRATE ER 30 MG [id number] 1 PO DAILY ISOSORBIDE MONONITRATE 97044786543 Active Brittani Doherty PLAVIX 75 MG TABS 1 PO QD CLOPIDOGREL BISULFATE 33965656866 Active Giovana Jacinta Mary FUROSEMIDE 20 MG TAB 1/2 PO DAILY FUROSEMIDE 51715690230 Active Giovana Hernandez Immunizations Vaccine Administration Date [...] Description Clinical Lists Update: CBC,CMP,TSH,FLP - Chemistry chloride, serum 107 mmol/L bilirubin, serum, total 0.6 mg/dL sodium, serum 139 mmol/L alanine aminotransferase (SGPT), serum 17 U/L aspartate aminotransferase (SGOT), serum 23 U/L protein, total, serum 6.1 g/dL potassium, serum 4.3 mmol/L thyroid stimulating hormone, serum 2.97 u[iU]/mL triglyceride, serum, fasting 56 mg/dL calcium, serum 8.9 mg/dL urea nitrogen, blood 22 mg/dL anion gap, serum 8 alkaline phosphatase, serum 31 U/L albumin, serum 4.1 g/dL LDL cholesterol, serum 85 mg/dL HDL cholesterol, serum 78.0 mg/dL glucose, plasma fasting 87 mg/dL Estimated Glomerular Filtration Rate (calc) 60 mL/min/1.73m2 creatinine, serum 1.0 mg/dL carbon dioxide, venous blood 28.0 mmol/L cholesterol, serum 174 mg/dL cholesterol/HDL ratio, serum, percent 2.2 Clinical Lists Update: CBC,CMP,TSH,FLP - Hematology erythrocyte (RBC) count 4.33 10*6/mm3 mean corpuscular volume, RBC 93 fL leukocyte count, blood 5.6 10*3/mm3 platelet count 123 10*3/mm3 red blood cell distribution width 14.7 % hematocrit, blood 40 % hemoglobin, blood 12.3 g/dL Clinical Lists Update: LFT,FLP [facility] - Chemistry bilirubin, serum, total 0.5 mg/dL bilirubin, serum, direct 0.1 mg/dL cholesterol/HDL ratio, serum, percent 2.2 protein, total, serum 6.1 g/dL alanine aminotransferase (SGPT), serum 28 U/L cholesterol, serum 165 mg/dL triglyceride, serum, fasting 44 mg/dL HDL cholesterol, serum 75.0 mg/dL LDL cholesterol, serum 81 mg/dL albumin, serum 4.0 g/dL aspartate aminotransferase (SGOT), serum 19 U/L alkaline phosphatase, serum 31 U/L Clinical Lists Update: UA - Urinalysis ketones, urine, by test strip neg protein, urine, semiquantitative (dipstick) neg specific gravity, urine 1.015 pH, urine, semiquantitative 5.0 WBC urine on microscopy none {Cells}/[HPF] bacteria, urine microscopy trace glucose, urine, semiquantitative neg nitrite, urine, semiquantitative neg RBC urine by microscopy none bilirubin, urine neg appearance, urine Clear Yellow urobilinogen, urine, semiquantitative (dipstick) 0.2 epithelial cells, urine 5-10 /[LPF] blood in urine (hemoglobin) by dipstick neg mucus on urinalysis none hyaline casts, urine none /[LPF] Office Visit: First Visit - Chemistry chloride, serum 104 mmol/L cholesterol/HDL ratio, serum, percent 3.3 cholesterol/HDL ratio, serum, percent 2.2 cholesterol, serum 230 mg/dL cholesterol, serum 176 mg/dL cholesterol, serum 176 mg/dL carbon dioxide, venous blood 26.0 mmol/L creatinine, serum 1.0 mg/dL Estimated Glomerular Filtration Rate (calc) 59 mL/min/1.73m2 glucose, plasma fasting 90 mg/dL HDL cholesterol, serum 69.0 mg/dL HDL cholesterol, serum 81.0 mg/dL HDL cholesterol, serum 81 mg/dL LDL cholesterol, serum 144 mg/dL LDL cholesterol, serum 84 mg/dL LDL cholesterol, serum 84 mg/dL albumin, serum 4.1 g/dL albumin, serum 4.1 g/dL alkaline phosphatase, serum 90 U/L alkaline phosphatase, serum 40 U/L anion gap, serum 13 bilirubin, serum, direct 0.2 mg/dL bilirubin, serum, total 0.5 mg/dL bilirubin, serum, total 0.5 mg/dL urea nitrogen, blood 20 mg/dL calcium, serum 9.3 mg/dL triglyceride, serum, fasting 85 mg/dL triglyceride, serum, fasting 54 mg/dL triglyceride, serum, fasting 59 mg/dL potassium, serum 5.2 mmol/L protein, total, serum 6.3 g/dL protein, total, serum 6.3 g/dL aspartate aminotransferase (SGOT), serum 23 U/L aspartate aminotransferase (SGOT), serum 23 U/L aspartate aminotransferase (SGOT), serum 23 U/L alanine aminotransferase (SGPT), serum 21 U/L alanine aminotransferase (SGPT), serum 14 U/L alanine aminotransferase (SGPT), serum 14 U/L sodium, serum 138 mmol/L Office Visit: First Visit - Hematology hematocrit, blood 43 % hemoglobin, blood 13.1 g/dL mean corpuscular volume, RBC 93 fL red blood cell distribution width 14.2 % platelet count 124 10*3/mm3 erythrocyte (RBC) count 4.61 10*6/mm3 leukocyte count, blood 6.8 10*3/mm3 Encounters Code Encounter Date Provider Facility CPT-77067 Ofc Vst, Est Level III 15:49:28 CDT Giovana Hernandez DO, FACP CPT-51194 Ofc Vst, Est Level III 17:09:21 CDT Giovana Hernandez DO, FACP CPT-11266 Ofc Vst, New Level III 16:03:15 CDT Giovana Hernandez DO, FACP Procedures Code Procedure Name Date Entry Date Standard Description CPT-G0439 Medicare Annual Wellness Visit 20:04:23 CDT
--- OUTSIDE RECORDS SUMMARY | 2017-08-17 08:46 | XMS REPORT | Clinical Summary ---
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 2014 PREDNISONE 54039574257 No Longer Active Giovana Hernandez TYLENOL WITH CODEINE #3 300-30 MG TABS 1 PO BID prn back pain ACETAMINOPHEN-CODEINE 86546759093 Active Giovanadelphine Hernandez ULTRAM 50 MG TAB 1 PO TID prn back pain TRAMADOL HCL 28703736044 Active Giovanadelphine Hernandez PREMARIN 0.625 MG/GM CREA apply a small amount around urethra every night for 2 weeks then twice weekly ESTROGENS, CONJUGATED VAGINAL 01370475616 Active Giovana Hernandez CRANBERRY 300 MG TABS 1 PO DAILY CRANBERRY 77521989507 Active Giovana Hernandez ASPIRIN 81 MG TAB 1 PO DAILY ASPIRIN 66527676047 Active Giovana Hernandez FISH OIL 1000 MG CAPS 3 PO DAILY OMEGA-3 FATTY ACIDS 03849194253 Active Giovanadelphine Hernandez CIPRO 500 MG TABS 1 PO BID CIPROFLOXACIN HCL 37696305334 No Longer Active Giovanadelphine Hernandez LIPITOR 10 MG TAB 1/2 PO DAILY ATORVASTATIN CALCIUM 21986374767 Active Giovana Hernandez FOSAMAX 70 MG TABS 1 PO WEEKLY ALENDRONATE SODIUM 42615245402 Active Brittani Doherty POTASSIUM CHLORIDE ER 10 MEQ CR-TABS 1 PO DAILY POTASSIUM CHLORIDE 29706871622 Active Giovana Hernandez FENOFIBRATE 145 MG TABS 1 PO DAILY FENOFIBRATE 93284138476 Active Giovana Hernandez COREG 6.25 MG TABS 1 PO BID CARVEDILOL 74934543601 Active Giovana Hernandez ZANTAC 150 MG TABS 1 PO BID RANITIDINE HCL 10182564745 Active Giovana Hernandez ISOSORBIDE MONONITRATE ER 30 MG [id number] 1 PO DAILY ISOSORBIDE MONONITRATE 21267297356 Active Brittani Doherty PLAVIX 75 MG TABS 1 PO QD CLOPIDOGREL BISULFATE 74379764471 Active Giovana Jacinta Mary FUROSEMIDE 20 MG TAB 1/2 PO DAILY FUROSEMIDE 59136404276 Active Giovana Hernandez Immunizations Vaccine Administration Date [...] - 9279-1 14 /min Resp rate weight E&Jose - 3141-9 140 [lb_av] Weight Measured Diagnostic Results Date Name Value Unit Range Description Clinical Lists Update: CBC,CMP,TSH,FLP - Chemistry creatinine, serum 1.0 mg/dL triglyceride, serum, fasting 56 mg/dL sodium, serum 139 mmol/L anion gap, serum 8 cholesterol/HDL ratio, serum, percent 2.2 glucose, plasma fasting 87 mg/dL Estimated Glomerular Filtration Rate (calc) 60 mL/min/1.73m2 potassium, serum 4.3 mmol/L protein, total, serum 6.1 g/dL aspartate aminotransferase (SGOT), serum 23 U/L alanine aminotransferase (SGPT), serum 17 U/L LDL cholesterol, serum 85 mg/dL thyroid stimulating hormone, serum 2.97 u[iU]/mL HDL cholesterol, serum 78.0 mg/dL bilirubin, serum, total 0.6 mg/dL carbon dioxide, venous blood 28.0 mmol/L cholesterol, serum 174 mg/dL chloride, serum 107 mmol/L calcium, serum 8.9 mg/dL urea nitrogen, blood 22 mg/dL alkaline phosphatase, serum 31 U/L albumin, serum 4.1 g/dL Clinical Lists Update: CBC,CMP,TSH,FLP - Hematology hematocrit, blood 40 % red blood cell distribution width 14.7 % mean corpuscular volume, RBC 93 fL leukocyte count, blood 5.6 10*3/mm3 erythrocyte (RBC) count 4.33 10*6/mm3 platelet count 123 10*3/mm3 hemoglobin, blood 12.3 g/dL Clinical Lists Update: LFT,FLP [facility] - Chemistry albumin, serum 4.0 g/dL alkaline phosphatase, serum 31 U/L bilirubin, serum, direct 0.1 mg/dL HDL cholesterol, serum 75.0 mg/dL LDL cholesterol, serum 81 mg/dL protein, total, serum 6.1 g/dL aspartate aminotransferase (SGOT), serum 19 U/L alanine aminotransferase (SGPT), serum 28 U/L bilirubin, serum, total 0.5 mg/dL triglyceride, serum, fasting 44 mg/dL cholesterol/HDL ratio, serum, percent 2.2 cholesterol, serum 165 mg/dL Clinical Lists Update: UA - Urinalysis blood in urine (hemoglobin) by dipstick neg mucus on urinalysis none protein, urine, semiquantitative (dipstick) neg glucose, urine, semiquantitative neg bilirubin, urine neg ketones, urine, by test strip neg nitrite, urine, semiquantitative neg epithelial cells, urine 5-10 /[LPF] hyaline casts, urine none /[LPF] bacteria, urine microscopy trace RBC urine by microscopy none WBC urine on microscopy none {Cells}/[HPF] appearance, urine Clear Yellow urobilinogen, urine, semiquantitative (dipstick) 0.2 specific gravity, urine 1.015 pH, urine, semiquantitative 5.0 Office Visit: First Visit - Chemistry triglyceride, serum, fasting 59 mg/dL HDL cholesterol, serum 81 mg/dL LDL cholesterol, serum 84 mg/dL aspartate aminotransferase (SGOT), serum 23 U/L alanine aminotransferase (SGPT), serum 14 U/L cholesterol, serum 176 mg/dL Encounters Code Encounter Date Provider Facility [id number] Ofc Vst, Est Level III 15:49:28 CDT Giovana Hernandez DO, FACP CPT-17203 Ofc Vst, Est Level III 17:09:21 CDT Giovana Hernandez DO FACP CPT-94674 Ofc Vst, New Level III 16:03:15 CDT Giovana Hernandez DO, FACP Procedures Code Procedure Name Date Entry Date Standard Description CPT-G0439 Medicare Annual Wellness Visit 20:04:23 CDT
--- OUTSIDE RECORDS SUMMARY | 2017-08-17 08:46 | XMS REPORT | Continuity of Care Document ---
Author Author [facility] Organization [facility] Address Unknown Phone Unavailable Allergies Active Description Code Type Severity Reaction Onset Reported/Identified Relationship to Patient Clinical Status Yes Penicillins [id number] Drug Allergy Mild N/A 04/19/2009 Medications There is no data. Problems Date Dx Coded Attending Type Code Diagnosis Diagnosed By 12/25/2011 Ot 272.4 HYPERLIPIDEMIA NEC/NOS 12/25/2011 Ot 401.9 HYPERTENSION NOS 12/25/2011 Ot 414.01 CORONARY ATHEROSCLEROSIS OF [place] CORON 12/25/2011 Ot 427.69 PREMATURE BEATS NEC 12/25/2011 Ot 785.1 PALPITATIONS 12/25/2011 Ot 786.09 RESPIRATORY ABNORM NEC 12/25/2011 Ot 786.50 CHEST PAIN NOS 12/25/2011 Ot V45.82 PERCUTANEOUS TRANSLUM CORON ANGIOPLASTY 12/25/2011 Ot V58.69 OTH MED,LT, CURRENT USE 09/20/2013 VERÓINCA MENDEZ MD Ot 272.4 HYPERLIPIDEMIA NEC/NOS 09/20/2013 VERÓNICA MENDEZ MD Ot 401.9 HYPERTENSION NOS 09/20/2013 VERÓNICA MENDEZ MD Ot 412 OLD MYOCARDIAL INFARCT 09/20/2013 VERÓNICA MENDEZ MD Ot 414.01 CORONARY ATHEROSCLEROSIS OF [place] CORON 09/20/2013 VERÓNICA MENDEZ MD Ot 427.69 PREMATURE BEATS NEC 09/20/2013 VERÓNICA MENDEZ MD Ot 427.89 CARDIAC DYSRHYTHMIAS NEC 09/20/2013 VERÓNICA MENDEZ MD Ot 733.00 OSTEOPOROSIS NOS 09/20/2013 VERÓNICA MENDEZ MD Ot 786.50 CHEST PAIN NOS 09/20/2013 VERÓNICA MENDEZ MD Ot V45.82 PERCUTANEOUS TRANSLUM CORON ANGIOPLASTY 09/20/2013 VERÓNICA MENDEZ MD Ot V58.63 LONG-TERM(CURRENT)USE OF ANTIPLATELET/AN 09/20/2013 VERÓNICA MENDEZ MD, Ot V58.66 LONG-TERM (CURRENT) USE OF ASPIRIN 09/20/2013 VERÓNICA MENDEZ MD J Ot V58.69 OT MED,LT,CURRENT USE 11/09/2013 SHANNA HUNG MD R Ot 272.0 PURE HYPERCHOLESTEROLEM 11/09/2013 SHANNA HUNG MD R Ot 300.00 ANXIETY STATE NOS 11/09/2013 SHANNA HUNG MD R Ot 401.9 HYPERTENSION NOS 11/09/2013 SHANNA HUNG MD R Ot 412 OLD MYOCARDIAL INFARCT 11/09/2013 SHANNA HUNG MD R Ot 414.01 CORONARY ATHEROSCLEROSIS OF [place] CORON 11/09/2013 SHANNA HUNG MD R Ot 424.0 MITRAL VALVE DISORDER 11/09/2013 SHANNA HUNG MD R Ot 427.69 PREMATURE BEATS NEC 11/09/2013 SHANNA HUNG MD R Ot 427.89 CARDIAC DYSRHYTHMIAS NEC 11/09/2013 SHANNA HUNG MD R Ot 428.0 CONGESTIVE HEART FAILURE NOS 11/09/2013 SHANNA HUNG MD R Ot 428.31 ACUTE DIASTOLIC HRT FAILURE 11/09/2013 SHANNA HUNG MD R Ot 433.30 MULT BILTRAL ARTERY OCCLUSION WO CEREBRA 11/09/2013 SHANNA HUNG MD R Ot 458.9 HYPOTENSION NOS 11/09/2013 SHANNA HUNG MD R Ot 733.00 OSTEOPOROSIS NOS 11/09/2013 SHANNA HUNG MD R Ot 786.2 COUGH 11/09/2013 SHANNA HUNG MD R Ot 786.59 CHEST PAIN NEC 11/09/2013 SHANNA HUNG MD R Ot 790.5 ABN SERUM ENZY LEVEL NEC 11/09/2013 SHANNA HUNG MD R Ot 995.27 OTHER DRUG ALLERGY 11/09/2013 SHANNA HUNG MD R Ot E942.6 ADV EFF ANTIHYPERTEN AGT 11/09/2013 SHANNA HUNG MD R Ot V13.02 PERSONAL HISTORY, URINARY (TRACT) INFECT 11/09/2013 SHANNA HUNG MD R Ot V15.82 HISTORY OF TOBACCO USE 11/09/2013 SHANNA HUNG MD Ot V45.82 PERCUTANEOUS TRANSLUM CORON ANGIOPLASTY 05/10/2015 KHRIS DOMINIQUE Ot 272.4 05/10/2015 KHRIS DOMINIQUE Ot 401.9 05/10/2015 KHRIS DOMINIQUE Ot 414.00 05/10/2015 KHRIS DOMINIQUE Ot 433.10 05/15/2015 KHRIS DOMINIQUE Ot 272.4 05/15/2015 KHRIS DOMINIQUE Ot 401.9 05/15/2015 KHRIS DOMINIQUE Ot 414.00 05/15/2015 KHRIS DOMINIQUE Ot 433.10 04/16/2016 Ot 401.9 HYPERTENSION NOS 04/16/2016 Ot 414.00 CORON ATHEROSCLER NOS TYPE VESSEL, NATIV 04/16/2016 Ot 433.30 MULT BILTRAL ARTERY OCCLUSION WO CEREBRA 04/16/2016 Ot 784.2 SWELLING IN HEAD NECK 04/16/2016 Ot V76.12 OTH SCREEN MAMMO-MALIGN NEOPLASM OF [place] 04/16/2016 Ot 733.90 BONE CARTILAGE DIS NOS 04/16/2016 Ot V76.12 OTH SCREEN MAMMO-MALIGN NEOPLASM OF [place] 04/16/2016 VERÓNICA MENDEZ MD Ot 401.9 HYPERTENSION NOS 04/16/2016 VERÓNICA MENDEZ MD Ot 414.00 CORON ATHEROSCLER NOS TYPE VESSEL, NATIV 04/16/2016 ABHILASH FRENCH, SHANNA R Ot 733.00 OSTEOPOROSIS NOS 04/16/2016 Ot 427.89 CARDIAC DYSRHYTHMIAS NEC 04/16/2016 Ot 427.9 CARDIAC DYSRHYTHMIA NOS 04/16/2016 KHRIS DOMINIQUE Ot 272.4 HYPERLIPIDEMIA NEC/NOS 04/16/2016 KHRIS DOMINIQUE Ot 401.9 HYPERTENSION NOS 04/16/2016 KHRIS DOMINIQUE Ot 414.00 CORON ATHEROSCLER NOS TYPE VESSEL, NATIV 04/16/2016 KHRIS DOMINIQUE Ot 433.10 CAROTID ARTERY OCCLUSION W O CEREBRAL IN 04/17/2016 VERÓNICA MENDEZ MD Ot H53.9 UNSPECIFIED VISUAL DISTURBANCE 04/17/2016 VERÓNICA MEDNEZ MD Ot 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 04/17/2016 VERÓNICA MENDEZ MD Ot Z86.73 PRSNL HX OF TIA (TIA), AND CEREB INFRC W 04/18/2016 Ot 401.9 HYPERTENSION NOS 04/18/2016 Ot 414.00 CORON ATHEROSCLER NOS TYPE VESSEL, NATIV 04/18/2016 Ot 433.30 MULT BILTRAL ARTERY OCCLUSION WO CEREBRA 04/18/2016 Ot 784.2 SWELLING IN HEAD NECK 04/18/2016 Ot V76.12 OTH SCREEN MAMMO-MALIGN NEOPLASM OF [place] 04/18/2016 Ot 733.90 BONE CARTILAGE DIS NOS 04/18/2016 Ot V76.12 OTH SCREEN MAMMO-MALIGN NEOPLASM OF [place] 04/18/2016 VERÓNICA MENDEZ MD Ot 401.9 HYPERTENSION NOS 04/18/2016 VERÓNICA MENDEZ MD Ot 414.00 CORON ATHEROSCLER NOS TYPE VESSEL, NATIV 04/18/2016 ABHILASH FRENCH, SHANNA R Ot 733.00 OSTEOPOROSIS NOS 04/18/2016 Ot 427.89 CARDIAC DYSRHYTHMIAS NEC 04/18/2016 Ot 427.9 CARDIAC DYSRHYTHMIA NOS 04/18/2016 KHRIS DOMINIQUE Ot 272.4 HYPERLIPIDEMIA NEC/NOS 04/18/2016 KHRIS DOMINIQUE Ot 401.9 HYPERTENSION NOS 04/18/2016 KHRIS DOMINIQUE Ot 414.00 CORON ATHEROSCLER NOS TYPE VESSEL, NATIV 04/18/2016 KHRIS DOMINIQUE Ot 433.10 CAROTID ARTERY OCCLUSION W O CEREBRAL IN 04/18/2016 VERÓNICA MENDEZ MD Ot H53.9 UNSPECIFIED VISUAL DISTURBANCE 04/18/2016 VERÓNICA MENDEZ MD Ot 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 04/18/2016 VERÓNICA MENDEZ MD Ot Z86.73 PRSNL HX OF TIA (TIA), AND CEREB INFRC W 04/19/2016 KHRIS DOMINIQUE Ot E78.2 MIXED HYPERLIPIDEMIA 04/19/2016 KHRIS DOMINIQUE Ot I10 ESSENTIAL (PRIMARY) HYPERTENSION 04/19/2016 KHRIS DOMINIQUE Ot I25.10 ATHSCL HEART DISEASE OF [place] CORONARY 04/19/2016 KHRIS DOMINIQUE Ot 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 05/08/2016 YANIQUE FRENCH, SCOUT Owens Ot I80.01 PHLEBITIS AND THOMBOPHLB OF [place]PERFIC VES 05/08/2016 SCOUT CHANEL MD, Ot 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 05/08/2016 SCOUT CHANEL MD, Ot Z79.82 HALFWAY (CURRENT) USE OF ASPIRIN 05/08/2016 SCOUT CHANEL MD, Ot Z79.899 OTHER HALFWAY (CURRENT) DRUG THERAPY 05/08/2016 SCOUT CHANEL MD, Ot Z95.5 PRESENCE OF CORONARY ANGIOPLASTY IMPLANT 05/10/2016 SCOUT CHANEL MD, Ot I80.01 PHLEBITIS [facility] 05/10/2016 SCOUT CHANEL MD, Ot 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 05/10/2016 SCOUT CHANEL MD, Ot Z79.82 MATERIALS AND PROCESSES MANAGER (CURRENT) USE OF ASPIRIN 05/10/2016 SCOUT CHANEL MD, Ot Z79.899 OTHER MATERIALS AND PROCESSES MANAGER (CURRENT) DRUG THERAPY 05/10/2016 SCOUT CHANEL MD, Ot Z95.5 PRESENCE OF CORONARY ANGIOPLASTY IMPLANT 05/10/2016 KHRIS DOMINIQUE Ot E78.2 MIXED HYPERLIPIDEMIA 05/10/2016 KHRIS DOMINIQUE Ot I10 ESSENTIAL (PRIMARY) HYPERTENSION 05/10/2016 KHRIS DOMINIQUE Ot I25.10 ATHSCL HEART DISEASE OF [place] CORONARY 05/10/2016 KHRIS DOMINIQUE Ot 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 05/10/2016 VERÓNICA MENDEZ MD Ot H53.9 UNSPECIFIED VISUAL DISTURBANCE 05/10/2016 VERÓNICA MENDEZ MD Ot 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 05/10/2016 VERÓNICA MENDEZ MD Ot Z86.73 PRSNL HX OF TIA (TIA), AND CEREB INFRC W 05/10/2016 VERÓNICA MENDEZ MD Ot H53.9 UNSPECIFIED VISUAL DISTURBANCE 05/10/2016 VERÓNICA MENDEZ MD Ot 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 05/10/2016 VERÓNICA MENDEZ MD Ot Z86.73 PRSNL HX OF TIA (TIA), AND CEREB INFRC W 05/15/2016 KHRIS DOMINIQUE Ot E78.2 MIXED HYPERLIPIDEMIA 05/15/2016 KHRIS DOMINIQUE Ot I10 ESSENTIAL (PRIMARY) HYPERTENSION 05/15/2016 KHRIS DOMINIQUE Ot I25.10 ATHSCL HEART DISEASE OF [place] CORONARY 05/15/2016 KHRIS DOMINIQUE Ot 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 09/10/2016 SCOUT CHANEL MD, Ot S93.402A SPRAIN OF UNSPECIFIED LIGAMENT OF LEFT A 09/10/2016 SCOUT CHANEL MD, Ot S99.912A UNSPECIFIED INJURY OF LEFT ANKLE, INITIA 09/10/2016 SCOUT CHANEL MD, Ot X58.XXXA EXPOSURE TO OTHER SPECIFIED FACTORS, INI 09/10/2016 SCOUT CHANEL MD, Ot Y92.[address] IN [facility] NON-INSTITUT (PRIVATE 09/10/2016 SCOUT CHANEL MD, Ot Y99.8 OTHER EXTERNAL CAUSE STATUS 09/10/2016 SCOUT CHANEL MD, Ot Z79.82 HALFWAY (CURRENT) USE OF ASPIRIN 09/10/2016 SCOUT CHANEL MD, Ot Z79.899 OTHER HALFWAY (CURRENT) DRUG THERAPY 09/10/2016 Ot 733.90 BONE CARTILAGE DIS NOS 09/10/2016 Ot V76.12 OTH SCREEN MAMMO-MALIGN NEOPLASM OF [place] 09/10/2016 VERÓNICA MENDEZ MD Ot 401.9 HYPERTENSION NOS 09/10/2016 VERÓNICA MENDEZ MD Ot 414.00 CORON ATHEROSCLER NOS TYPE VESSEL, NATIV 09/10/2016 ABHILASH FRENCH, SHANNA R Ot 733.00 OSTEOPOROSIS NOS 09/10/2016 Ot 427.89 CARDIAC DYSRHYTHMIAS NEC 09/10/2016 Ot 427.9 CARDIAC DYSRHYTHMIA NOS 09/10/2016 KHRIS DOMINIQUE Ot 272.4 HYPERLIPIDEMIA NEC/NOS 09/10/2016 KHRIS DOMINIQUE Ot 401.9 HYPERTENSION NOS 09/10/2016 KHRIS DOMINIQUE Ot 414.00 CORON ATHEROSCLER NOS TYPE VESSEL, NATIV 09/10/2016 KHRIS DOMINIQUE Ot 433.10 CAROTID ARTERY OCCLUSION W O CEREBRAL IN 09/10/2016 VERÓNICA MENDEZ MD Ot H53.9 UNSPECIFIED VISUAL DISTURBANCE 09/10/2016 VERÓNICA MENDEZ MD Ot 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 09/10/2016 VERÓNICA MENDEZ MD Ot Z86.73 PRSNL HX OF TIA (TIA), AND CEREB INFRC W 09/10/2016 KHRIS DOMINIQUE Ot E78.2 MIXED HYPERLIPIDEMIA 09/10/2016 KHRIS DOMINIQUE Ot I10 ESSENTIAL (PRIMARY) HYPERTENSION 09/10/2016 KHRIS DOMINIQUE Ot I25.10 ATHSCL HEART DISEASE OF [place] CORONARY 09/10/2016 KHRIS DOMINIQUE Ot 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 09/11/2016 SCOUT CHANEL MD, Ot S93.402A SPRAIN OF UNSPECIFIED LIGAMENT OF LEFT A 09/11/2016 SCOUT CHANEL MD, Ot S99.912A UNSPECIFIED INJURY OF LEFT ANKLE, INITIA 09/11/2016 SCOUT CHANEL MD Ot X58.XXXA EXPOSURE TO OTHER SPECIFIED FACTORS, INI 09/11/2016 SCOUT CHANEL MD Ot Y92.[address] [facility] [address] IN [facility] NON-INSTITUT (PRIVATE 09/11/2016 SCOUT CHANEL MD Ot Y99.8 OTHER EXTERNAL CAUSE STATUS 09/11/2016 SCOUT CHANEL MD Ot Z79.82 MATERIALS AND PROCESSES MANAGER (CURRENT) USE OF ASPIRIN 09/11/2016 SCOUT CHANEL MD Ot Z79.899 OTHER MATERIALS AND PROCESSES MANAGER (CURRENT) DRUG THERAPY 09/12/2016 SCOUT CHANEL MD, Ot S93.402A SPRAIN OF UNSPECIFIED LIGAMENT OF LEFT A 09/12/2016 SCOUT CHANEL MD, Ot S99.912A UNSPECIFIED INJURY OF LEFT ANKLE, INITIA 09/12/2016 SCOUT CHANEL MD Ot X58.XXXA EXPOSURE TO OTHER SPECIFIED FACTORS, INI 09/12/2016 SCOUT CHANEL MD Ot Y92.[address] IN [facility] NON-INSTITUT (PRIVATE 09/12/2016 SCOUT CHANEL MD Ot Y99.8 OTHER EXTERNAL CAUSE STATUS 09/12/2016 SCOUT CHANEL MD Ot Z79.82 MATERIALS AND PROCESSES MANAGER (CURRENT) USE OF ASPIRIN 09/12/2016 SCOUT CHANEL MD Ot Z79.899 OTHER MATERIALS AND PROCESSES MANAGER (CURRENT) DRUG THERAPY Procedures There is no data. Results There is no data. Encounters ACCT No. Visit Date/Time Discharge Status Pt. Type Provider Facility Loc./Unit Complaint [id number] 09/10/2016 10:36:00 09/10/2016 13:07:00 DIS Emergency SCOUT CHANEL MD [facility] ER FALL/LEFT FOOT PAIN [id number] 05/08/2016 11:17:00 05/08/2016 12:01:00 DIS Emergency SCOUT CHANEL MD [facility] ER RIGHT LEG REDNESS/ FEELS HOT [id number] 04/18/2016 13:11:00 04/18/2016 23:59:59 CLS Outpatient KHRIS DOMINIQUE [facility] CARD CAD,CAROTID ARTERY STENOSIS,HTN,HLP [id number] 04/16/2016 10:32:00 04/16/2016 23:59:59 CLS Outpatient VERÓNICA MENDEZ MD [facility] RAD VISUAL DISTURBANCE, HISTORY OF TIA, CAROTID ARTERY [id number] 04/19/2015 08:32:00 04/19/2015 23:59:59 CLS Outpatient KHRIS DOMINIQUE [facility] CARD CAD CAROTID ARTERY STENOSIS HTN HYPERLIPIDEMIA [id number] 11/08/2013 06:35:00 11/09/2013 15:40:00 DIS Inpatient SHANNA HUNG MD [facility] CSD CHF;COUGH;CP [id number] 09/19/2013 16:00:00 09/20/2013 15:30:00 DIS Outpatient VERÓNICA MENDEZ MD [facility] CATH CHEST PAIN;BI SURINDERINY [id number] 03/12/2013 09:47:00 03/12/2013 23:59:59 CLS Outpatient SHANNA HUNG MD [facility] RAD OSTEOPOROSIS [id number] 01/28/2013 09:39:00 01/28/2013 23:59:59 CLS Outpatient ANDREA FRENCH, VERÓNICA Solorzano [facility] CARD CAD,HTN [id number] 11/24/2013 10:27:00 Document Registration [id number] 03/27/2012 08:38:00 Document Registration [id number] 12/23/2011 16:50:00 Document Registration [id number] 03/21/2011 07:55:00 Document Registration [id number] 01/16/2011 09:04:00 Document Registration [id number] 01/03/2011 08:53:00 Document Registration
[2017-08-17 09:04] LABS: BASOPHILS % (AUTO) 0 % (0-10); EOSINOPHILS # (AUTO) 0.1 10^3/uL (0.0-0.3); EOSINOPHILS % (AUTO) 1 % (0-10); LYMPHOCYTES # (AUTO) 1.6 X 10^3 (1.0-4.0); LYMPHOCYTES % (AUTO) 20 % (12-44); MEAN CORPUSCULAR HEMOGLOBIN 29 PG (25-34); MEAN CORPUSCULAR HGB CONC 32 G/DL (32-36); MEAN CORPUSCULAR VOLUME 90 FL (80-99); MEAN PLATELET VOLUME 12.3 FL (7.4-10.4); MONOCYTES # (AUTO) 0.9 X 10^3 (0.0-1.0); MONOCYTES % (AUTO) 12 % (0-12); NEUTROPHILS # (AUTO) 5.2 X 10^3 (1.8-7.8); NEUTROPHILS % (AUTO) 67 % (42-75); PLATELET COUNT 166 10^3/uL (130-400); RED BLOOD COUNT 4.42 10^6/uL (4.35-5.85); RED CELL DISTRIBUTION WIDTH 14.5 % (10.0-14.5); WHITE BLOOD COUNT 7.7 10^3/uL (4.3-11.0)
[2017-08-17 09:18] LABS: ALANINE AMINOTRANSFERASE 27 U/L (0-55); ALBUMIN 3.9 GM/DL (3.2-4.5); ANION GAP 9 MMOL/L (5-14); ASPARTATE AMINO TRANSFERASE 31 U/L (5-34); BILIRUBIN,TOTAL 0.4 MG/DL (0.1-1.0); BLOOD UREA NITROGEN 36 MG/DL (7-18); BUN/CREATININE RATIO 30; CALCIUM 9.4 MG/DL (8.5-10.1); CARBON DIOXIDE 25 MMOL/L (21-32); CHLORIDE 109 MMOL/L (98-107); GFR ESTIMATED 43; GLUCOSE 102 MG/DL (70-105); MAGNESIUM 2.2 MG/DL (1.8-2.4); POTASSIUM 4.2 MMOL/L (3.6-5.0); SODIUM 143 MMOL/L (135-145); TOTAL PROTEIN 6.6 GM/DL (6.4-8.2)
[2017-08-17 09:25] LABS: MYOGLOBIN SERUM 66.2 NG/ML (10.0-92.0)
--- NOTE | 2017-08-17 09:33 | ED Cardiac General ---
History of Present Illness General Chief Complaint: Chest Pain Stated Complaint: BODY ACHES, POSS FLU, CP Nursing Triage Note: PT CO OF CHEST PAIN 03/10 STATES STARTED YESTERDAY, STATES STARTED HAVING COLD ON FRIDAY CHEST PAIN STARTED YESTERDAY. Source: patient, family Exam Limitations: no limitations History of Present Illness Time seen by provider: 09:28 Initial Comments This 81-year-old white female presents with a complaint of chest pressure that began yesterday. Patient has also noted associated palpitations. Patient has had a history of stents and bypass surgery from cardiac disease in the past. The patient has had the upper respiratory symptoms for the last several days. She has had no significant fever or chill. The cough has been nonproductive. There's been no associated ankle swelling. Patient has a history of A. fib. She is under the care of Dr. Elisa Overton. The patient states that she has had aching throughout her body for the last year that has been worse with the present illness. It is difficult to know Cerney but it sounds as if this is from her osteoporosis and sciatica. NTG SL HORSE RANCHER: No ASA po HORSE RANCHER: No Allergies and Home Medications Allergies Coded Allergies: Penicillins (Unverified Allergy, Mild, 04/19/09) Home Medications Alendronate Sodium 70 Mg Tab, 70 MG PO FRIDAY, (Reported) Aspirin 81 Mg Tabec, 81 MG PO HS, (Reported) Calcium Carbonate/Vitamin D3 1 Each Tablet, 1 TAB PO TID, (Reported) Carvedilol 6.25 Mg Tablet, 6.25 MG PO BID, (Reported) Clopidogrel Bisulfate 75 Mg Tablet, 75 MG PO DAILY, (Reported) Cranberry Ext/C/L. Sporogenes 1 Each Tablet, 1 TAB PO DAILY, (Reported) Furosemide 20 Mg Tab, 10 MG PO DAILY@0700, #30 Prescribed by: LUZ BARROW on 11/09/13 1458 Isosorbide Mononitrate 30 Mg Tab.sr.24h, 30 MG PO DAILY, (Reported) [place] 3 Polyunsat Fatty Acids 1,000 Mg Cap, 1,000 MG PO TID, (Reported) Potassium Chloride 10 Meq Capsule.sa, 10 MEQ PO DAILY, #1 Prescribed by: LUZ BARROW on 11/09/13 1504 Ranitidine Hcl 150 Mg Capsule, 150 MG PO BID, #1 Prescribed by: LUZ BARROW on 11/09/13 1504 Review of Systems Constitutional: see HPI, No chills, No fever, malaise, weakness EENTM: No Blurred Vision, No Ear Pain Respiratory: Cough, Shortness of Air Cardiovascular: See HPI, Irregular Heart Rate, Palpitations Gastrointestinal: Denies Abdominal Pain, Denies Diarrhea Genitourinary: Denies Burning, Denies Frequency Musculoskeletal: back pain, joint pain Skin: No change in color, No rash Psychiatric/Neurological: Anxiety Endocrine: No Symptoms Reported Hematologic/Lymphatic: No Symptoms Reported Past Rfklwli-Aunwvr-Rewkkq Hx Patient Social History Alcohol Use: Denies Use Recreational Drug Use: No Smoking Status: Never a Smoker Recent Foreign Travel: No Contact w/Someone Who Travel: No Recent Infectious Disease Expo: No Recent Hopitalizations: No Physical Abuse: No Sexual Abuse: No Immunizations Up To Date Date of Pneumonia Vaccine: Sep 01, 2008 Date of Influenza Vaccine: Jun 01, 2017 Surgeries History of Surgeries: Yes (cardiac stents) Surgeries: Appendectomy, Hysterectomy Respiratory History of Respiratory Disorde: No Cardiovascular History of Cardiac Disorders: Yes (STENTS X 4, CHF) Cardiac Disorders: Heart Attack Neurological History of Neurological Disord: No Reproductive System Hx Reproductive Disorders: No Genitourinary Genitourinary Disorders: UTI-Chronic Gastrointestinal History of Gastrointestinal Di: No Musculoskeletal History of Musculoskeletal Dis: No Endocrine History of Endocrine Disorders: No Cancer History of Cancer: Yes (BASIL CELL CARCINOMA) Psychosocial History of Psychiatric Problem: No Suicide Risk Score: 0 Integumentary History of Skin or Integumenta: No Blood Transfusions History of Blood Disorders: No Reviewed Nursing Assessment Reviewed/Agree w Nursing PMH: Yes Family Medical History Significant Family History: Heart Disease Physical Exam Vital Signs Vital Sign - Last 12Hours 08/17/17 08:36 Temp 97.6 Pulse 130 Resp 24 B/P (MAP) 139/71 (93) Pulse Ox 96 Capillary Refill : Less Than 3 Seconds General Appearance: Mild Distress, Thin HEENT: Normal ENT Inspection Neck: Normal Inspection Respiratory: Lungs Clear Cardiovascular: Irregularly Irregular, Tachycardia Gastrointestinal: No Organomegaly, No Pulsatile Mass, Non Tender Extremity: Normal Inspection, Normal Range of Motion Neurologic/Psychiatric: Oriented x3, No Motor/Sensory Deficits, Normal Mood/ Affect Skin: Normal Color, Warm/Dry Progress/Results/Core Measures Results/Orders Lab Results Laboratory Tests Test 08/17/17 08:45 08/17/17 09:45 Range/Units White Blood Count 7.7 4.3-11.0 10^3/uL Red Blood Count 4.42 4.35-5.85 10^6/uL Hemoglobin 12.8 11.5-16.0 G/DL Hematocrit 40 35-52 % Mean Corpuscular Volume 90 80-99 FL Mean Corpuscular Hemoglobin 29 25-34 PG Mean Corpuscular Hemoglobin Concent 32 32-36 G/DL Red Cell Distribution Width 14.5 10.0-14.5 % Platelet Count 166 130-400 10^3/uL Mean Platelet Volume 12.3 H 7.4-10.4 FL Neutrophils (%) (Auto) 67 42-75 % Lymphocytes (%) (Auto) 20 12-44 % Monocytes (%) (Auto) 12 0-12 % Eosinophils (%) (Auto) 1 0-10 % Basophils (%) (Auto) 0 0-10 % Neutrophils # (Auto) 5.2 1.8-7.8 X 10^3 Lymphocytes # (Auto) 1.6 1.0-4.0 X 10^3 Monocytes # (Auto) 0.9 0.0-1.0 X 10^3 Eosinophils # (Auto) 0.1 0.0-0.3 10^3/uL Basophils # (Auto) 0.0 0.0-0.1 10^3/uL Prothrombin Time 14.2 12.2-14.7 SEC INR Comment 1.1 0.8-1.4 Activated Partial Thromboplast Time 31 24-35 SEC Sodium Level 143 135-145 MMOL/L Potassium Level 4.2 3.6-5.0 MMOL/L Chloride Level 109 H 98-107 MMOL/L Carbon Dioxide Level 25 21-32 MMOL/L Anion Gap 9 5-14 MMOL/L Blood Urea Nitrogen 36 H 7-18 MG/DL Creatinine 1.20 0.60-1.30 MG/DL Estimat Glomerular Filtration Rate 43 BUN/Creatinine Ratio 30 Glucose Level 102 70-105 MG/DL Calcium Level 9.4 8.5-10.1 MG/DL Magnesium Level 2.2 1.8-2.4 MG/DL Total Bilirubin 0.4 0.1-1.0 MG/DL Aspartate Amino Transf (AST/SGOT) 31 5-34 U/L Alanine Aminotransferase (ALT/SGPT) 27 0-55 U/L Alkaline Phosphatase 43 40-136 U/L Myoglobin 66.2 10.0-92.0 NG/ML Troponin I < 0.30 <0.30 NG/ML B-Type Natriuretic Peptide 1215.7 H <100.0 PG/ML Total Protein 6.6 6.4-8.2 GM/DL Albumin 3.9 3.2-4.5 GM/DL My Orders Orders - BLADE, JAZMINE Valladares MD Cbc With Automated Diff (08/17/17 08:58) Magnesium (08/17/17 08:58) Chest 1 View, Ap/Pa Only (08/17/17 08:58) Ekg Tracing (08/17/17 08:58) Cardiac Profile 1 (08/17/17 08:58) Comprehensive Metabolic Panel (08/17/17 08:58) Myoglobin Serum (08/17/17 08:58) Protime With Inr (08/17/17 08:58) Partial Thromboplastin Time (08/17/17 08:58) O2 (08/17/17 08:58) Monitor-Rhythm Ecg Trace Only (08/17/17 08:58) Lipid Panel (08/18/17 06:00) Saline Lock/Iv-Start (08/17/17 08:58) BNP (08/17/17 08:58) Erythrocyte Sedimentation Rate (08/17/17 09:36) Lorazepam Tablet (Ativan Tablet) (08/17/17 09:45) Ns Iv 1000 Ml (Sodium Chloride 0.9%) (08/17/17 09:45) BNP (08/17/17 09:52) Fibrin Degradation Products (08/17/17 09:52) Diltiazem Injection (Cardizem Injection) (08/17/17 10:15) Ns (Ivpb) (Sodium C... W/Diltiazem Iv Fo (08/17/17 10:15) Ns (Ivpb) (Sodium C... W/Diltiazem Iv Fo (08/17/17 10:15) Medications Given in ED Current Medications Medications Dose Ordered Sig/Aman Route Start Time Stop Time Status Last Admin Dose Admin Lorazepam 0.5 mg ONCE ONCE PO 08/17/17 09:45 08/17/17 09:46 DC 08/17/17 09:44 0.5 MG Vital Signs/I&O Vital Sign - Last 12Hours 08/17/17 08:36 Temp 97.6 Pulse 130 Resp 24 B/P (MAP) 139/71 (93) Pulse Ox 96 Blood Pressure Mean: 93 Progress Note : Time: 10:12 Progress Note The patient's ventricular rate was in the 130s. I gave the patient a bolus of normal saline without affecting the right. Subsequently initiated a Cardizem bolus and drip of 10 mg and [address] Klein was called and will see the patient shortly in the emergency department. She recommended that we admit the patient to the ICU for further close monitoring and care. Departure Communication (Admissions) Time/Spoke to Admitting Phy: 10:[address] Overton Impression Impression: Primary Impression: Atrial fibrillation with rapid ventricular response Disposition: ADMITTED INPATIENT Condition: Improved Admissions Decision to Admit Reason: Admit from ER (General) Decision to Admit/Date: Aug 17, 2017 Time/Decision to Admit Time: 10:17 Departure-Patient Inst. Referrals: GORDO OVERTON DO (PCP/Family) Primary Care Physician JAZMINE MURGUIA MD Aug 17, 2017 09:33
[2017-08-17 09:38] LABS: INR 1.1 (0.8-1.4); PROTHROMBIN TIME PATIENT 14.2 SEC (12.2-14.7)
--- NOTE | 2017-08-17 09:43 | Diagnostic Imaging Report ---
INDICATION: Body aches, shortness of breath x2 days. TECHNIQUE: Single view chest 9:29 AM. CORRELATION STUDY: 11/08/2013 FINDINGS: Heart size is enlarged perhaps slightly increased. Coronary artery stent over the left heart border. Vasculature within normal limits. Lungs generally clear. Trace effusions not excluded. Biapical pleural thickening. IMPRESSION: 1. Cardiac enlargement without evidence for overt failure. Likely trace effusions. Dictated by: Dictated on workstation # [id number]
[2017-08-17] MEDS ORDERED: NS IV 1000 ML 1,000 ML IV SCH (09:45)
[2017-08-17] MEDS ORDERED: LORazepam 0.5 MG (ATIVAN) TABLET PO ONE (09:45)
[2017-08-17] MEDS ORDERED: DILTIAZEM IV FOR DRIP 125 MG in NS (IVPB) 100 ML IV SCH ×4 (10:15)
[2017-08-17] MEDS ORDERED: DILTIAZEM 25 MG/5 ML INJ (CARDIZEM) VIAL IVP ONE (10:15)
[2017-08-17] MEDS ORDERED: ENOXAPARIN 40 MG/0.4 ML (LOVENOX) SYR SC SCH (10:45)
--- NOTE | 2017-08-17 10:47 | History & Physical-Hospitalist ---
HPI History of Present Illness: HPI/Chief Complaint This is an 81-year-old white female who presents to the emergency room with a 5 day history of increased chest pressure. She notes it's worse when she lays down in the evening. She has been achy all over and thought she had developed the flu. She is found to be in new onset atrial fibrillation with rapid ventricular response and an elevated BNP consistent with congestive heart failure, etiology to be determined Source: patient Exam Limitations: no limitations Date Seen 08/17/17 Time Seen by Provider: 10:30 Attending Physician Bonita Klein MD PCP Giovana Hernandez DO Referring Physician Date of Admission Aug 17, 2017 at 10:24 Home Medications & Allergies Home Medications Reviewed patient Home Medication Reconciliation Form Allergies Allergies Coded Allergies Penicillins (Unverified Allergy, Mild, 04/19/09) Past Nwhvavw-Tbdcmz-Qqlqfh Hx Patient Social History Marrital Status: Employed/Student: retired Alcohol Use: Occasionally Uses Recreational Drug Use: No Smoking Status: Never a Smoker Recent Foreign Travel: No Contact w/other who traveled: No Recent Hopitalizations: No Recent Infectious Disease Expo: No Immunizations Up To Date Date of Pneumonia Vaccine: Sep 01, 2008 Date of Influenza Vaccine: Jun 01, 2017 Surgeries Yes (cardiac stents) Appendectomy, Hysterectomy Respiratory No Cardiovascular Yes (STENTS X 4, CHF) Coronary Artery Disease, Heart Attack, High Cholesterol, Hypertension Neurological No Reproductive System Hx Reproductive Disorders: No Genitourinary UTI-Chronic Gastrointestinal Yes Gastroesophageal Reflux Musculoskeletal No Endocrine History of Endocrine Disorders: No Cancer Yes (BASIL CELL CARCINOMA) Psychosocial History of Psychiatric Problem: No Integumentary History of Skin or Integumenta: No Blood Transfusions History of Blood Disorders: No Reviewed Nursing Assessment Reviewed/Agree w Nursing PMH: Yes Family Medical History Significant Family History: Heart Disease Review of Systems Constitutional: see HPI, weakness EENTM: no symptoms reported Respiratory: short of breath Cardiovascular: other (chest pressure) Gastrointestinal: no symptoms reported Genitourinary: no symptoms reported Musculoskeletal: muscle pain, muscle weakness Skin: no symptoms reported Psychiatric/Neurological: Weakness Physical Exam Physical Exam Vital Signs Vital Sign - Last 12Hours 08/17/17 08:36 Temp 97.6 Pulse 130 Resp 24 B/P (MAP) 139/71 (93) Pulse Ox 96 O2 Delivery Nasal Cannula O2 Flow Rate 2.00 Capillary Refill : Less Than 3 Seconds General Appearance: No Apparent Distress, WD/WN HEENT: Normal ENT Inspection Neck: Supple Respiratory: Chest Non Tender, Lungs Clear, Normal Breath Sounds, No Accessory Muscle Use, No Respiratory Distress Cardiovascular: Systolic Murmur, Irregularly Irregular Gastrointestinal: Normal Bowel Sounds, Non Tender, Soft Extremity: No Pedal Edema Neurologic/Psychiatric: Alert, Oriented x3, No Motor/Sensory Deficits, Normal Mood/Affect Skin: Warm/Dry, Pallor Results Results/Procedures Lab Laboratory Tests 08/17/17 08:45 Assessment/Plan Admission Diagnosis 1. New onset atrial fibrillation with RVR 2. Elevated BNP consistent with congestive heart failure etiology to be determined last echocardiogram that I could find was in 2016- will need to repeat. May be secondary to diastolic dysfunction from afib. 3. Coronary artery disease with a history of stent placement and previous myocardial infarctions 4. Chest pressure -possibly secondary to A. fib versus angina from the rapid ventricular response Plan is to admit to the ICU on Cardizem drip for rate control consult cardiology and further treatment based on etiologies to be determined Copy Copies To 1: GIOVANA HERNANDEZ DO Clinical Quality Measures AMI/AHF: ASA po Prior to arrival: BONITA Webster MD Aug 17, 2017 10:47
--- NOTE | 2017-08-17 11:48 | Consultation-Cardiology ---
HPI-Cardiology Cardiology Consultation: Date of Consultation 08/17/17 Date of Admission Attending Physician Mariah Klein MD Admitting Physician Giovana Hernandez DO Consulting Physician Jose LAGUERRE MD HPI: Time Seen by Provider: 11:41 Chief Complaint: atrial fibrillation this is a 81-year-old lady with history of moderate to severe mitral regurgitation, CAD status post stents, she presents with acute diastolic congestive heart failure. She was also found to be in atrial fibrillation with rapid ventricular rate. She feels better today with improved shortness of breath. The patient denies any chest pain, claudication, syncope or near syncope. She had complains of orthopnea but no PND. No significant weight gain. Review of Systems-Cardiology Review of Systems Constitutional: No As described under HPI, No no symptoms reported, No chills, No fever, No lightheadedness, No malaise, No tiredness, No weight loss, No weight gain, No other Eyes: No As described under HPI, No no symptoms reported, No blindness, No blurred vision, No contact lenses, No drainage, No decreased acuity, No foreign body sensation, No glasses, No inflammation, No pain, No photophobia, No previous injury, No shadows, No tunnel vision, No other, No vision change Ears/Nose/Throat: No As described under HPI, No no symptoms reported, No chronic hearing loss, No epistaxis, No ear discharge, No ear pain, No loose teeth, No mouth pain, No mouth swelling, No nasal drainage, No nose pain, No recent hearing loss, No throat pain, No throat swelling, No ulcerations, No other Respiratory: orthopnea, shortness of breath Cardiovascular: No no symptoms reported, No As described under HPI, No chest pain, No edema, No irregular heart rate, No lightheadedness, palpitations, No syncope, No other Gastrointestinal: No no symptoms reported, No As described under HPI, No abdomen distended, No abdominal pain, No blood streaked bowels, No constipation , No diarrhea, difficulty swallowing, No nausea, No poor appetite, No poor fluid intake, No rectal bleeding, No vomiting, No other, No nausea/vomiting/ diarrhea, No stool coloration changes Genitourinary: No no symptoms reported, No As described under HPI, No burning, No dysuria, No discharge, No frequency, No flank pain, No hematuria, No incontinence, No pain, No urgency, No other, No urine frequency changes, No urine coloration changes Musculoskeletal: No no symptoms reported, No As describe under HPI, No back pain, No gout, No joint pain, No joint swelling, No muscle pain, No muscle stiffness, No neck pain, No other Skin: No no symptoms reported, No As described under HPI, No change in color, No change in hair/nails, No dryness, No lesions, No lumps, No rash, No other, No skin related problems, No ulcerations, No rash on exposed areas, No ulcerations on exposed areas Psychiatric/Neurological: No no symptoms reported, No As described under HPI, No anxiety, No depression, No emotional problems, No headache, No numbness, No pre-existing deficit, No seizure, No tingling, No tremors, No weakness, No other , No focal weakness, No syncope JUP-Tbkjzs-Dswwbp Hx Patient Social History Marrital Status: Employed/Student: retired Alcohol Use: Occasionally Uses Recreational Drug Use: No Smoking Status: Never a Smoker Recent Foreign Travel: No Recent Infectious Disease Expo: No Hospitalization with Isolation: Denies Immunizations Up To Date Date of Pneumonia Vaccine: Sep 01, 2008 Date of Influenza Vaccine: Jun 01, 2017 Past Medical History PMH As described under Assessment. Allergies and Home Medications Allergies Coded Allergies: Penicillins (Unverified Allergy, Mild, 04/19/09) Home Medications Alendronate Sodium 70 Mg Tab, 70 MG PO FRIDAY, (Reported) Aspirin 81 Mg Tabec, 81 MG PO HS, (Reported) Calcium Carbonate/Vitamin D3 1 Each Tablet, 1 TAB PO TID, (Reported) Carvedilol 6.25 Mg Tablet, 6.25 MG PO BID, (Reported) Clopidogrel Bisulfate 75 Mg Tablet, 75 MG PO DAILY, (Reported) Cranberry Ext/C/L. Sporogenes 1 Each Tablet, 1 TAB PO DAILY, (Reported) Furosemide 20 Mg Tab, 10 MG PO DAILY@0700, #30 Prescribed by: LUZ BARROW on 11/09/13 1458 Isosorbide Mononitrate 30 Mg Tab.sr.24h, 30 MG PO DAILY, (Reported) [place] 3 Polyunsat Fatty Acids 1,000 Mg Cap, 1,000 MG PO TID, (Reported) Potassium Chloride 10 Meq Capsule.sa, 10 MEQ PO DAILY, #1 Prescribed by: LUZ BARROW on 11/09/13 1504 Ranitidine Hcl 150 Mg Capsule, 150 MG PO BID, #1 Prescribed by: LUZ BARROW on 11/09/13 1504 Physical Exam-Cardiology Physical Exam Vital Signs/I&O Vital Sign - Last 12Hours 08/17/17 08/17/17 08/17/17 08/17/17 08:36 08:36 10:28 10:39 Temp 97.6 Pulse 130 131 82 Resp 24 18 13 B/P (MAP) 139/71 (93) 127/95 Pulse Ox 96 97 96 97 O2 Delivery Nasal Cannula Nasal Cannula O2 Flow Rate 2.00 2.00 Capillary Refill : Less Than 3 Seconds Constitutional: No appears stated age, No AAO x 3, No apparent distress, No PERRL, No well-developed, No well-nourished, No other HEENT: No PERRL, No normal ENT inspection, No TMs normal, No pharynx normal, No scleral icterus (R), No scleral icterus (L), No pale conjunctivae (R), No pale conjunctivae (L), No photophobia, No TM abnormal (R), No TM abnormal (L), No pharyngeal erythema, No tonsillar exudate, No other, No discharge, No EOMI, No hearing is well preserved, No hard of hearing, No oral hygience is good, No ulceration, No xanthelasmas are seen Neck: No non-tender, No full range of motion, No supple, No normal inspection, No carotid bruit, No limited range of motion, No lymphadenopathy (R), No lymphadenopathy (L), No tender lateral, No tender midline, No thyromegaly, No other, No carotid pulses are 2 + bilaterally, No with good upstrokes Respiratory: No accessory muscle use, No respiratory distress, No chest tender , No chest expansion is symmetric, No chest is bilaterally symmetric, No lungs clear to percussion, No lungs clear to auscultation, No crackles, No rhonchi, No rales, No stridor, No wheezing, No pleural rub, No other Cardiovascular: irregularly irregular, S1 and S2, systolic murmur Gastrointestinal: No tender, No soft, No round, No distended, No pulsatile mass , No organomegaly, No guarding, No rebound, No tenderness, No hernia, No mass, No audible bowel sounds, No abnormal bowel sounds, No abdominal bruits, No spleenomegaly, No other Rectal: deferred Extremities: No normal range of motion, No non-tender, No normal inspection, No pedal edema, No calf tenderness, No normal capillary refill, No pelvis stable , No calf tenderness, No inflammation, No pedal edema, No slow capillary refill , No swelling, No other, No abrasion, No clubbing, No cyanosis, No ecchymosis, No laceration, No no lower extremity edema bilateral, No significant edema, No tenderness, No wound Neurologic/Psychiatric: No ekg monitor II-XII nml as tested, No no motor/sensory deficits, No alert, No normal mood/affect, No oriented x 3, No abnormal cerebellar tests, No abnormal ekg monitor II-XII, No abnormal gait, No aphasia, No EOM palsy, No facial droop, No motor weakness, No sensory deficit, No depressed affect, No disoriented x 3, No other, No grossly intact, No power is 5/5 both on sides Skin: No normal color, No warm/dry, No cyanosis, No cool, No diaphoresis, No damp, No ecchymosis, No jaundice, No mottled, No pallor, No rash, No tattoos/ piercings, No ulcerations, No rash on exposed areas, No ulcerations on exposed areas, No other Lymphatic: No no adenopathy, No axilla node tender (R), No axilla node tender ( L), No inguinal node tender (R), No inguinal node tender (L), No other Data Review Labs Laboratory Tests 08/17/17 08:45: White Blood Count 7.7, Red Blood Count 4.42, Hemoglobin 12.8, Hematocrit 40, Mean Corpuscular Volume 90, Mean Corpuscular Hemoglobin 29, Mean Corpuscular Hemoglobin Concent 32, Red Cell Distribution Width 14.5, Platelet Count 166, Mean Platelet Volume 12.3H, Neutrophils (%) (Auto) 67, Lymphocytes (%) (Auto) 20 , Monocytes (%) (Auto) 12, Eosinophils (%) (Auto) 1, Basophils (%) (Auto) 0, Neutrophils # (Auto) 5.2, Lymphocytes # (Auto) 1.6, Monocytes # (Auto) 0.9, Eosinophils # (Auto) 0.1, Basophils # (Auto) 0.0, Prothrombin Time 14.2, INR Comment 1.1, Activated Partial Thromboplast Time 31, D-Dimer 1.67H, Sodium Level 143, Potassium Level 4.2, Chloride Level 109H, Carbon Dioxide Level 25, Anion Gap 9, Blood Urea Nitrogen 36H, Creatinine 1.20, Estimat Glomerular Filtration Rate 43, BUN/Creatinine Ratio 30, Glucose Level 102, Calcium Level 9.4, Magnesium Level 2.2, Total Bilirubin 0.4, Aspartate Amino Transf (AST/SGOT ) 31, Alanine Aminotransferase (ALT/SGPT) 27, Alkaline Phosphatase 43, Myoglobin 66.2, Troponin I < 0.30, B-Type Natriuretic Peptide 1215.7H, Total Protein 6.6, Albumin 3.9 08/17/17 09:45: Erythrocyte Sedimentation Rate 4 ECG Impression ECG Initial ECG Impression: Atrial Fibrillation w/RVR A/P-Cardiology Assessment/Admission Diagnosis shortness of breath, acute diastolic congestive heart failure. CAD, history of stents. Atrial fibrillation with rapid ventricular rate. Moderate to severe mitral regurgitation Plan shortness of breath, acute diastolic congestive heart failure: Last echocardiogram was done in 2016 which showed normal EF. Diastolic dysfunction was noted. I will repeat an echocardiogram. Continue Lasix.. CAD, history of stents: on aspirin, Plavix and atorvastatin. Last PCI was a few years ago. Since for atrial fibrillation was have to start him on an oral anticoagulation agent we may have to discontinue either aspirin or Plavix. I will defer to Dr. Medina tomorrow to decide. Atrial fibrillation with rapid ventricular rate: better controlled with Cardizem drip. Will need oral anticoagulation since Arnie Vasc score is at least 5 (gender, age, HTN, CAD, CHF). Transesophageal echocardiogram assisted cardioversion is recommended. However the patient tells me that she does have swallowing difficulty in the last few days. I will request Dr. Klein for evaluation with either barium swallow to rule out any significant esophageal pathology which may preclude transesophageal echocardiogram. Moderate to severe mitral regurgitation: transesophageal echocardiogram. However tell the swallowing issue is addressed, I'll proceed with regular echocardiogram first. Swallowing difficulty: We will request Dr. Klein's help to address. Thank you for your consultation. Please call me if you have any questions. Delfina Laguerre MD, FACP, FACC, FSCAI, FHRS, CCDS Interventional Cardiology Cardiac Electrophysiology Vascular Medicine and Endovascular Interventions Clinical Quality Measures AMI/AHF: ASA po Prior to arrival: Jose Mcghee MD Aug 17, 2017 11:48 am
[2017-08-17] MEDS ORDERED: FUROSEMIDE 40 MG/4 ML INJ (LASIX) IVP NR (12:00)
[2017-08-17] MEDS: DILTIAZEM IV FOR DRIP 125 MG in NS (IVPB) 100 ML IV SCH (12:15)
[2017-08-17] MEDS ORDERED: CATHETER FLUSH 10 ML SYR IV PRN (12:15)
[2017-08-17] MEDS ORDERED: ASPI-983 PO (13:57)
[2017-08-17] MEDS ORDERED: CRAN500C4 PO (13:57)
[2017-08-17] MEDS ORDERED: ATOR10TA66 PO (13:57)
[2017-08-17] MEDS ORDERED: FENO160T12 PO (13:57)
[2017-08-17] MEDS ORDERED: POTA10TA10 PO (13:57)
[2017-08-17] MEDS ORDERED: RANI150T11 PO (13:57)
[2017-08-17] MEDS ORDERED: OMEG-160 PO (13:57)
[2017-08-17] MEDS ORDERED: CLOP75TA28 PO (13:57)
[2017-08-17] MEDS ORDERED: FURO20TA4 PO (13:57)
[2017-08-17] MEDS ORDERED: CARV6.252 PO (13:57)
[2017-08-17] MEDS ORDERED: FERR-84 PO (14:03)
[2017-08-17] MEDS ORDERED: KCL 10 MEQ TAB (MICRO K) PO ONE (16:01)
[2017-08-17] MEDS: NS IV 1000 ML 1,000 ML IV SCH (16:01)
[2017-08-17] MEDS: KCL 10 MEQ TAB (MICRO K) PO SCH (16:04)
[2017-08-17] MEDS: RIVAROXABAN 15 MG TABLET (XARELTO) PO SCH (16:12)
[2017-08-17] MEDS ORDERED: raNItidine (ZANTAC) 150 MG TAB NON-FORMULARY PO SCH (21:00)
[2017-08-17] MEDS: FAMOTIDINE 20 MG (PEPCID) TABLET PO SCH (21:25)
[2017-08-17] MEDS: ATORVASTATIN 10 MG (LIPITOR) TABLET PO SCH (21:28)
[2017-08-18] VITALS (51 sets, daily range): BP systolic 96–154; BP diastolic 44–109
[2017-08-18] MEDS: DILTIAZEM IV FOR DRIP 125 MG in NS (IVPB) 100 ML IV SCH (00:27)
[2017-08-18 05:12] LABS: BASOPHILS % (AUTO) 0 % (0-10); EOSINOPHILS # (AUTO) 0.1 10^3/uL (0.0-0.3); EOSINOPHILS % (AUTO) 2 % (0-10); LYMPHOCYTES # (AUTO) 1.3 X 10^3 (1.0-4.0); LYMPHOCYTES % (AUTO) 15 % (12-44); MEAN CORPUSCULAR HEMOGLOBIN 29 PG (25-34); MEAN CORPUSCULAR HGB CONC 32 G/DL (32-36); MEAN CORPUSCULAR VOLUME 91 FL (80-99); MEAN PLATELET VOLUME 11.8 FL (7.4-10.4); MONOCYTES % (AUTO) 12 % (0-12); NEUTROPHILS # (AUTO) 6.2 X 10^3 (1.8-7.8); NEUTROPHILS % (AUTO) 71 % (42-75); PLATELET COUNT 132 10^3/uL (130-400); RED BLOOD COUNT 4.04 10^6/uL (4.35-5.85); RED CELL DISTRIBUTION WIDTH 14.5 % (10.0-14.5); WHITE BLOOD COUNT 8.7 10^3/uL (4.3-11.0)
[2017-08-18 05:43] LABS: ALBUMIN 3.4 GM/DL (3.2-4.5); BILIRUBIN,TOTAL 0.3 MG/DL (0.1-1.0); CALCIUM 8.4 MG/DL (8.5-10.1); CREATININE SERUM 0.97 MG/DL (0.60-1.30); PHOSPHORUS 3.5 MG/DL (2.3-4.7); POTASSIUM 3.8 MMOL/L (3.6-5.0); TOTAL PROTEIN 5.8 GM/DL (6.4-8.2)
--- NOTE | 2017-08-18 08:04 | Diagnostic Imaging Report ---
INDICATION: Congestive heart failure. Comparison study: Chest from yesterday. FINDINGS: Portable view of the chest demonstrates stable cardiomegaly with calcification of the aorta. Pulmonary vascularity has slightly increased but is still within normal limits. IMPRESSION: There is stable cardiomegaly. Pulmonary vascularity has slightly increased but is still within normal limits. Dictated by: Dictated on workstation # [id number]
--- NOTE | 2017-08-18 10:10 | Progress Note-Hospitalist ---
Subjective HPI/CC On Admission Date Seen by Provider: Aug 18, 2017 Time Seen by Provider: 10:05 This is an 81-year-old white female who presents to the emergency room with a 5 day history of increased chest pressure. She notes it's worse when she lays down in the evening. She has been achy all over and thought she had developed the flu. She is found to be in new onset atrial fibrillation with rapid ventricular response and an elevated BNP consistent with congestive heart failure, etiology to be determined Subjective/Events-last exam Pt reports having a poor night due to back pain and a headache but now feels ok. Ready for swallow study. No other concerns. Objective Exam Vital Signs Vital Sign - Last 12Hours 08/17/17 08:36 Temp 97.6 Pulse 130 Resp 24 B/P (MAP) 139/71 (93) Pulse Ox 96 O2 Delivery Nasal Cannula O2 Flow Rate 2.00 Capillary Refill : Less Than 3 Seconds General Appearance: No Apparent Distress, WD/WN Respiratory: Lungs Clear, No Respiratory Distress Cardiovascular: No Murmur, Irregularly Irregular Gastrointestinal: Normal Bowel Sounds, Non Tender, Soft Extremity: Non Tender, No Calf Tenderness Neurologic/Psychiatric: Alert, Oriented x3, Normal Mood/Affect Results/Procedures Lab Laboratory Tests 08/18/17 05:00 Assessment/Plan Assessment and Plan Assess & Plan/Chief Complaint a-fib with RVR Diagnosis/Problems Diagnosis/Problems (1) Atrial fibrillation with rapid ventricular response Status: Acute Assessment & Plan: Follows with Dr. Medina as outpatient Cardiology consulted appreciate recs Still on cardizem gtt- rate relatively well controlled Echo ordered On Xarelto for anticoagulation (2) Dysphagia Status: Acute Assessment & Plan: Barium swallow today Await results to see if appropriate candidate for EROS Qualifiers: Qualified Codes: R13.10 - Dysphagia, unspecified (3) CAD (coronary artery disease) Status: Chronic Assessment & Plan: s/p stenting Follows with Dr Medina Cardiology consulted Qualifiers: Qualified Codes: I25.10 - Atherosclerotic heart disease of [place] coronary artery without angina pectoris JAIRO CALIXTO MD Aug 18, 2017 10:10
--- NOTE | 2017-08-18 10:13 | Cardiology Progress Note ---
Cardiology SOAP Progress Note Subjective: Complains of mild shortness of breath and fatigue. Objective: I&O/Vital Signs Vital Sign - Last 12Hours 08/18/17 08/18/17 08/18/17 08/18/17 02:00 03:00 04:00 04:00 Temp 97.5 Pulse 117 93 109 Resp 23 19 21 B/P (MAP) 113/74 (87) 96/71 (79) 137/73 (94) Pulse Ox 97 94 93 94 O2 Delivery Nasal Cannula Nasal Cannula Nasal Cannula Nasal Cannula O2 Flow Rate 2.00 2.00 2.00 2.00 08/18/17 08/18/17 08/18/17 08/18/17 05:00 06:00 07:00 07:00 Pulse 112 90 92 100 Resp 20 19 28 B/P (MAP) 140/94 (109) 142/77 (98) 142/72 (95) Pulse Ox 95 95 94 O2 Delivery Nasal Cannula Nasal Cannula Nasal Cannula O2 Flow Rate 2.00 2.00 2.00 08/18/17 08/18/17 08/18/17 08/18/17 07:15 07:30 07:45 08:00 Pulse 102 118 137 115 Resp 11 16 11 13 B/P (MAP) 141/81 (101) 143/76 (98) 154/99 (117) O2 Delivery Nasal Cannula Nasal Cannula Nasal Cannula Nasal Cannula O2 Flow Rate 2.00 2.00 2.00 2.00 08/18/17 08/18/17 08/18/17 08/18/17 08:15 08:23 08:30 08:45 Pulse 113 125 105 Resp 12 12 15 B/P (MAP) 145/109 (121) Pulse Ox 95 O2 Delivery Nasal Cannula Nasal Cannula Nasal Cannula Nasal Cannula O2 Flow Rate 2.00 2.00 2.00 2.00 08/18/17 08/18/17 08/18/17 08/18/17 09:00 09:15 09:30 09:45 Pulse 105 112 107 124 Resp 22 27 14 B/P (MAP) 129/82 (98) 138/61 (86) 126/71 (89) Pulse Ox 95 93 90 94 O2 Delivery Nasal Cannula Nasal Cannula Nasal Cannula Nasal Cannula O2 Flow Rate 2.00 2.00 2.00 2.00 08/18/17 08/18/17 08/18/17 08/18/17 10:00 10:15 10:30 10:45 Pulse 118 108 101 117 Resp 19 13 17 12 B/P (MAP) 126/87 (100) 122/80 (94) 135/92 (106) 133/97 (109) Pulse Ox 95 98 96 94 O2 Delivery Nasal Cannula Nasal Cannula Nasal Cannula Nasal Cannula O2 Flow Rate 2.00 2.00 2.00 2.00 08/18/17 08/18/17 08/18/17 08/18/17 11:00 11:45 12:00 12:15 Pulse 101 86 104 112 Resp 17 18 12 16 B/P (MAP) 139/97 (111) 127/82 (97) 137/82 (100) 127/82 (97) Pulse Ox 96 92 95 92 O2 Delivery Nasal Cannula Nasal Cannula Nasal Cannula Nasal Cannula O2 Flow Rate 2.00 2.00 2.00 2.00 08/18/17 12:30 Pulse 93 Resp 14 B/P (MAP) 137/82 (100) Pulse Ox 95 O2 Delivery Nasal Cannula O2 Flow Rate 2.00 Intake and Output 08/18/17 00:00 Intake Total 690 ml Output Total 2700 ml Balance -2010 ml Weight (Pounds): 149 Weight (Ounces): 8.0 Weight (Calculated Kilograms): 67.987231 Constitutional: No appears stated age, No AAO x 3, No apparent distress, No PERRL, No well-developed, No well-nourished, No other Respiratory: No accessory muscle use, No respiratory distress, No chest tender , No chest expansion is symmetric, No chest is bilaterally symmetric, No lungs clear to percussion, No lungs clear to auscultation, No crackles, No rhonchi, No rales, No stridor, No wheezing, No pleural rub, No other Cardiovascular: irregularly irregular, tachycardia, S1 and S2, systolic murmur Gastrointestional: No tender, No soft, No round, No distended, No pulsatile mass, No organomegaly, No guarding, No rebound, No tenderness, No hernia, No mass, No audible bowel sounds, No abnormal bowel sounds, No abdominal bruits, No spleenomegaly, No other Extremities: No normal range of motion, No non-tender, No normal inspection, No pedal edema, No calf tenderness, No normal capillary refill, No pelvis stable , No calf tenderness, No inflammation, No pedal edema, No slow capillary refill , No swelling, No other, No abrasion, No clubbing, No cyanosis, No ecchymosis, No laceration, No no lower extremity edema bilateral, No significant edema, No tenderness, No wound Neurologic/Psychiatric: No miniature model maker II-XII nml as tested, No no motor/sensory deficits, No alert, No normal mood/affect, No oriented x 3, No abnormal cerebellar tests, No abnormal miniature model maker II-XII, No abnormal gait, No aphasia, No EOM palsy, No facial droop, No motor weakness, No sensory deficit, No depressed affect, No disoriented x 3, No other, No grossly intact, No power is 5/5 both on sides Skin: No normal color, No warm/dry, No cyanosis, No cool, No diaphoresis, No damp, No ecchymosis, No jaundice, No mottled, No pallor, No rash, No tattoos/ piercings, No ulcerations, No rash on exposed areas, No ulcerations on exposed areas, No other Results/Procedures: Labs Laboratory Tests 08/17/17 14:42: Troponin I < 0.30 08/17/17 20:53: Troponin I < 0.30 08/18/17 02:50: Troponin I < 0.30 08/18/17 05:00: White Blood Count 8.7, Red Blood Count 4.04L, Hemoglobin 11.7, Hematocrit 37, Mean Corpuscular Volume 91, Mean Corpuscular Hemoglobin 29, Mean Corpuscular Hemoglobin Concent 32, Red Cell Distribution Width 14.5, Platelet Count 132, Mean Platelet Volume 11.8H, Neutrophils (%) (Auto) 71, Lymphocytes (%) (Auto) 15 , Monocytes (%) (Auto) 12, Eosinophils (%) (Auto) 2, Basophils (%) (Auto) 0, Neutrophils # (Auto) 6.2, Lymphocytes # (Auto) 1.3, Monocytes # (Auto) 1.0, Eosinophils # (Auto) 0.1, Basophils # (Auto) 0.0, Sodium Level 144, Potassium Level 3.8, Chloride Level 112H, Carbon Dioxide Level 23, Anion Gap 9, Blood Urea Nitrogen 34H, Creatinine 0.97, Estimat Glomerular Filtration Rate 55, BUN/ Creatinine Ratio 35, Glucose Level 103, Calcium Level 8.4L, Phosphorus Level 3.5 , Magnesium Level 2.0, Total Bilirubin 0.3, Aspartate Amino Transf (AST/SGOT) 24 , Alanine Aminotransferase (ALT/SGPT) 24, Alkaline Phosphatase 35L, Total Protein 5.8L, Albumin 3.4, Triglycerides Level 58, Cholesterol Level 136, LDL Cholesterol Direct 65, VLDL Cholesterol 12, HDL Cholesterol 54 A/P: Assessment/Dx: shortness of breath, acute diastolic congestive heart failure. CAD, history of stents. Atrial fibrillation with rapid ventricular rate. Moderate to severe mitral regurgitation Plan: shortness of breath, acute diastolic congestive heart failure: Last echocardiogram was done in 2016 which showed normal EF. Diastolic dysfunction was noted. Echocardiogram . Continue Lasix.. CAD, history of stents: on aspirin, Plavix and atorvastatin. Last PCI was a few years ago. Since for atrial fibrillation was have to start him on an oral anticoagulation agent we may have to discontinue either aspirin or Plavix. I will defer to Dr. Medina tomorrow to decide. Atrial fibrillation with rapid ventricular rate: better controlled with Cardizem drip. Will need oral anticoagulation since Arnie Vasc score is at least 5 (gender, age, HTN, CAD, CHF). Transesophageal echocardiogram assisted cardioversion is recommended. However the patient tells me that she does have swallowing difficulty in the last few days. Modified barium swallow was negative; proceed with transesophageal echocardiogram and cardioversion later today.. Moderate to severe mitral regurgitation: transesophageal echocardiogram. Thank you for your consultation. Please call me if you have any questions. Delfina Laguerre MD, FACP, FACC, FSCAI, FHRS, CCDS Interventional Cardiology Cardiac Electrophysiology Vascular Medicine and Endovascular Interventions Clinical Quality Measures AMI/AHF: ASA po Prior to arrival: Jose Mcghee MD Aug 18, 2017 10:13 am
--- NOTE | 2017-08-18 10:37 | Speech Therapy Progress Note ---
Therapy Progress Note Speech pathology ordered received for modified barium swallow evaluation and chart reviewed. The clinician visited with the patient this morning prior to modified barium swallow evaluation. The clinician discussed the process of the evaluation, as well as, what the evaluated was used to assess. Per patient, "I don't even know why I'm doing this, this isn't even the reason I came in." The importance of ruling out aspiration was discussed, as well as, the patient's current swallowing concerns. The patient stated, "sometimes I have some problems but not a lot." The patient agreed to complete the video swallow which was ordered by the physician the day prior. Speech pathology waits evaluation time decided upon with the aid of Radiology. BAILEY PASCAL Aug 18, 2017 10:37
[2017-08-18] MEDS: NS IV 1000 ML 1,000 ML IV SCH (10:59)
[2017-08-18] MEDS: ASPIRIN E.C. 81 MG (ECOTRIN) TAB PO SCH (12:00)
[2017-08-18] MEDS: FERROUS SULF 325 MG (IRON) TAB PO SCH (12:00)
[2017-08-18] MEDS ORDERED: NS IV 500 ML 500 ML ONE (12:02)
--- NOTE | 2017-08-18 12:24 | Diagnostic Imaging Report ---
EXAMINATION: Modified barium swallow. Indication: Dysphagia Different consistencies of fluid and food was given mixed with barium and swallowing was visualized under fluoroscopy. FLUOROSCOPY TIME: 40 seconds FINDINGS: No aspiration seen.. IMPRESSION: No aspiration seen. Please refer to speech therapist's report for additional details . Dictated by: Dictated on workstation # [id number]
--- NOTE | 2017-08-18 13:28 | ST Mod Barium Swallow ---
Speech Evaluation-General Medical Diagnosis Atrial Fibrillation Onset Date: Aug 17, 2017 Therapy Diagnosis Therapy Diagnosis: Oropharyngeal Swallow Grossly WFL Precautions Precautions/Isolations: Standard Precautions Referral Referring Physician: Dr. Mariah Klein Reason for Referral: Evaluation/Treatment Modified Barium Swallow Evaluation Medical History Pertinent Medical History: Atrial Fib Reviewed History: Yes Speech Mod Barium Swallow Prior Level of Function Per patient, she has experienced swallowing difficulty for the past year. The patient stated the difficulty occurs with solid consistencies that tend to lodge near the proximal esophageal area. The patient reports the globus sensation is occasionally cleared with a subsequent bolus of thin liquid, however, occasionally, the thin liquid displays retrograde flow, returning to the oral cavity. The patient denied coughing or choking on any consistency she currently consumes. Oral Motor Skills Dentition Natural Dentures: Full Lingual ROM: Normal Lingual Strength: Normal Velum: Normal Volitional Dry Swallow: Yes Voluntary Cough: Yes Can Clear Throat Volitionally: Yes Textures-Lateral View Lateral View Food Presentation: Thin Liquid via Spoon, Thin Liquid via Cup, Thin Liquid via Straw, Honey Liquid via Spoon, Pureed Solids, Mechanial Soft Solids Oral Phase Labial Closure: No Impairment (WFL) Bolus Formation Pooling L/R: No Impairment (WFL) Bolus Formation Placement: No Impairment (WFL) Mastication Rotary Chew: No Impairment (WFL) A/P Lingual Propulsion: No Impairment (WFL) Lingual Movement: No Impairment (WFL) Oral Phase Residue: No Impairment (WFL) Pharyngeal Phase Swallow Response: Mild Impairment (The pharyngeal swallow response consistently occurred as bolus material reach the vallecular space.) Base of Tongue: Mild Impairment Epiglottic Movement: No Impairment (WFL) Laryngeal Elevation: No Impairment (WFL) Vallecular Residue: Mild Pharyngeal Wall Residue: No Impairment (WFL) Piriform Sinus Residue: Mild (Liquid consistencies, only.) Laryngeal Penetration: None Aspiration Observations: None Other Pharyngeal Observations: No laryngeal penetration or aspiration occurred with any consistency tested. Performed-A/P View Not Applicable/Performed Summary/Impressions The patient presents with mild pharyngeal dysphagia characterized by mildly reduced base of tongue retraction. No aspiration or laryngeal penetration occurred with any consistency tested. Recommendations: - Regular consistency diet with thin liquids, as tolerated. - Small bites and sips. - Alternate solid and liquid consistencies on a 1:1 ratio. Speech-Plan Treatment Plan Speech Therapy Treatment Plan: Discontinue ST Evaluation, only. Frequency: 1 time per month Estimated Hrs Per Day: Other Rehab Potential: Good Safety Risks/Education Teaching Recipient: Patient Teaching Methods: Discussion Response to Teaching: Verbalize Understanding Education Topics Provided: Results, Recommendations, Plan of Care, Signs/Symptoms of Aspiration Time Speech Therapy Time In: 11:00 Speech Therapy Time Out: 11:20 Total Billed Time: 20 Billed Treatment Time 1, BAILEY BECERRA Aug 18, 2017 13:28
[2017-08-18] MEDS ORDERED: MIDAZOLAM 5 MG/5 ML (VERSED) VIAL IVP NR (14:00)
[2017-08-18] MEDS ORDERED: LIDOCAINE 2% VISCOUS 15 ML UDC PO NR (14:00)
[2017-08-18] MEDS ORDERED: proPOfol 200 MG/20 ML (DIPRIVAN) VIAL IV NR (14:00)
--- NOTE | 2017-08-18 16:00 | Cardiology Post Procedure Note ---
Post-Procedure Note Physician (s)/Band Straightener (s) Physician Jose JONES MD Pre-Procedure Diagnosis Pre-Procedure Diagnosis: AF with RVR Post-Procedure Note Procedure Start Date: Aug 18, 2017 Procedure Start Time: 15:00 Name of Procedure: EROS assisted electrical Cardioversion Findings/Procedure Note EROS showed no LV, left atrium, left atrial appendage thrombus. Severe mitral regurgitation. Successful direct external electrical cardioversion with one synchronized 200 J shock. Conversion to sinus rhythm. No immediate neurological complications. Estimated blood loss (mL): 0 Contrast Amount: 0 Post-Procedure Diagnosis Post-operative diagnosis: Transesophageal echocardiogram showed no cardiac thrombus. Severe mitral regurgitation. Successful cardioversion of atrial fibrillation to sinus rhythm. Jose JONES MD Aug 18, 2017 4:00 pm
--- NOTE | 2017-08-18 16:12 | Progress Note-Standard ---
Standard Progress Note Progress Notes/Assess & Plan Date Seen by Provider: Aug 18, 2017 Time Seen by Provider: 15:25 Progress/Assessment & Plan Anesthesia Note ([id number]) Called to ICU 11 for MAC (sedation) for EROS/Cardioversion. Pt S/E and monitors on. Propofol 130 mg IV given in divided doses throughout the procedure. VSS throughout including EtCO2 monitoring throughout the procedure. Pt tolerated the procedure well and returned to sinus rhythm after cardioversion. Will be available if needed. JUAN KUHN DO Aug 18, 2017 16:12
[2017-08-18] MEDS: DILTIAZEM 120 MG (CARDIZEM CD) CAP PO SCH (17:21)
[2017-08-18] MEDS: RIVAROXABAN 15 MG TABLET (XARELTO) PO SCH (17:54)
[2017-08-18] MEDS: KCL 10 MEQ TAB (MICRO K) PO SCH (17:54)
[2017-08-18] MEDS: FAMOTIDINE 20 MG (PEPCID) TABLET PO SCH (20:40)
[2017-08-18] MEDS: ATORVASTATIN 10 MG (LIPITOR) TABLET PO SCH (20:40)
[2017-08-19] VITALS (22 sets, daily range): BP systolic 100–170; BP diastolic 48–90
[2017-08-19] MEDS ORDERED: FUROSEMIDE 20 MG (LASIX) TAB ONE (00:52)
[2017-08-19] MEDS ORDERED: FUROSEMIDE 20 MG (LASIX) TAB PO SCH (01:00)
[2017-08-19] MEDS ORDERED: ALPRAZolam 0.25 MG (XANAX) TAB ONE (02:03)
[2017-08-19] MEDS ORDERED: ALPRAZolam 0.25 MG (XANAX) TAB PO PRN ×2 (02:15→08:15)
--- NOTE | 2017-08-19 03:53 | OPERATIVE REPORT ---
DATE OF SERVICE: 08/18/2017 DIRECT ELECTRICAL CARDIOVERSION ADMITTING PHYSICIAN: Dr. Klein. PRIMARY CARE PHYSICIAN: ____. PRIMARY LOGISTICIAN: Dr. Medina. INDICATION: Atrial fibrillation with rapid ventricular rate. PREOPERATIVE DIAGNOSIS: Atrial fibrillation with rapid ventricular rate. POSTOPERATIVE DIAGNOSES: 1. Successful cardioversion to sinus rhythm. 2. Severe mitral regurgitation. PROCEDURE DETAILS: The patient is an 81-year-old lady who presented with atrial fibrillation with rapid ventricular rate. A transesophageal echocardiogram was performed, which did not show any LV, LA, left atrial appendage thrombus. Severe mitral regurgitation was noted. Cardioversion was performed via external patches with a single synchronized 200 joule shock. The cardioversion was successful. The cardioversion was performed with anesthesia support. The patient tolerated procedure well, did not have any neurological complication. CONCLUSION: 1. Successful cardioversion of atrial fibrillation with rapid ventricular rate to sinus rhythm. 2. No neurological complication. 3. Severe mitral regurgitation was noted on transesophageal echocardiogram. Job ID: [id number] DocumentID: [id number] Dictated Date: 08/18/2017 17:24:34 Industrial Chemistry Teacher Date: 08/19/2017 00:45:58 Dictated By: BINTA JONES MD
[2017-08-19] MEDS: NS IV 1000 ML 1,000 ML IV SCH (04:15)
[2017-08-19] MEDS ORDERED: FUROSEMIDE 40 MG/4 ML INJ (LASIX) IVP ONE ×2 (05:00)
[2017-08-19 05:24] LABS: BASOPHILS % (AUTO) 0 % (0-10); EOSINOPHILS % (AUTO) 0 % (0-10); LYMPHOCYTES # (AUTO) 0.8 X 10^3 (1.0-4.0); LYMPHOCYTES % (AUTO) 6 % (12-44); MEAN CORPUSCULAR HEMOGLOBIN 29 PG (25-34); MEAN CORPUSCULAR HGB CONC 32 G/DL (32-36); MEAN CORPUSCULAR VOLUME 90 FL (80-99); MEAN PLATELET VOLUME 12.1 FL (7.4-10.4); MONOCYTES # (AUTO) 1.5 X 10^3 (0.0-1.0); MONOCYTES % (AUTO) 12 % (0-12); NEUTROPHILS # (AUTO) 10.8 X 10^3 (1.8-7.8); NEUTROPHILS % (AUTO) 82 % (42-75); PLATELET COUNT 158 10^3/uL (130-400); RED BLOOD COUNT 4.29 10^6/uL (4.35-5.85); RED CELL DISTRIBUTION WIDTH 14.5 % (10.0-14.5); WHITE BLOOD COUNT 13.2 10^3/uL (4.3-11.0)
[2017-08-19 05:33] LABS: ABG BASE EXCESS -2.6 MMOL/L (-2.5-2.5); ABG HCO3 21 MMOL/L (23-27); ABG OXYGEN SATURATION 94 % (94-100); ABG PCO2 34 MMHG (35-45); ABG PH 7.41 (7.37-7.43); ABG PO2 65 MMHG (79-93); ABG TCO2 22.3 MMOL/L (21.0-31.0)
[2017-08-19 05:37] LABS: PATIENT TEMP 98.6
[2017-08-19 05:41] LABS: ANION GAP 11 MMOL/L (5-14); BLOOD UREA NITROGEN 22 MG/DL (7-18); BUN/CREATININE RATIO 27; CALCIUM 8.9 MG/DL (8.5-10.1); CARBON DIOXIDE 21 MMOL/L (21-32); CHLORIDE 112 MMOL/L (98-107); CREATININE SERUM 0.83 MG/DL (0.60-1.30); GFR ESTIMATED > 60; GLUCOSE 117 MG/DL (70-105); MAGNESIUM 1.9 MG/DL (1.8-2.4); PHOSPHORUS 2.3 MG/DL (2.3-4.7); POTASSIUM 3.6 MMOL/L (3.6-5.0); SODIUM 144 MMOL/L (135-145)
--- NOTE | 2017-08-19 06:05 | Pulmonary Consultation ---
History of Present Illness History of Present Illness Date of Consultation 08/19/17 05:56 Time Seen by Provider: 06:02 Date of Admission History of Present Illness 81yo presented to ED secondary to 5 days of worsening SOB and chest pressure upon ICU admission patient was found to have new onset Afib RVR and was admitted to ICU. Thorough the night she continued to have progressive SOB. EICU gave a dose of 20 IV Lasix. She is on Xarelto for anticoagulation. Patient feels like she is having panic attacks and daughter who is at bedside states she has been a little confused. pt has had low grade fever of only 99.5 I am consulted for ICU management. Allergies and Home Medications Allergies Coded Allergies: Penicillins (Unverified Allergy, Mild, 04/19/09) Home Medications Aspirin 81 Mg Tablet.dr, 81 MG PO 1200, (Reported) Atorvastatin Calcium 10 Mg Tablet, 5 MG PO HS, (Reported) TAKES 1/2 OF A (10 MG) TABLET Carvedilol 6.25 Mg Tablet, 6.25 MG PO BID, (Reported) Clopidogrel Bisulfate 75 Mg Tablet, 75 MG PO DAILY, (Reported) Cranberry Extract 500 Mg Capsule, 500 MG PO 1200, (Reported) Fenofibrate 160 Mg Tablet, 160 MG PO 1630, (Reported) Ferrous Sulfate 325 Mg Tablet, 325 MG PO 1200, (Reported) Furosemide 20 Mg Tablet, 10 MG PO DAILY, (Reported) TAKES 1/2 OF A (20 MG) TABLET [place]-3/Dha/Epa/Fish Oil 1 Each Capsule, 1,000 MG PO TID, (Reported) Potassium Chloride 10 Meq Tablet.er, 10 MEQ PO 1630, (Reported) Ranitidine HCl 150 Mg Tablet, 150 MG PO BID, (Reported) Past Nrqyqed-Lijzix-Iepphr Hx Patient Social History Alcohol Use: Occasionally Uses Recreational Drug Use: No Smoking Status: Never a Smoker Recent Foreign Travel: No Contact w/Someone Who Travel: No Recent Infectious Disease Expo: No Recent Hopitalizations: No Physical Abuse: No Sexual Abuse: No Immunizations Up To Date Date of Pneumonia Vaccine: Sep 01, 2008 Date of Influenza Vaccine: Jun 01, 2017 Seasonal Allergies Seasonal Allergies: No Surgeries History of Surgeries: Yes (cardiac stents) Surgeries: Appendectomy, Hysterectomy Respiratory History of Respiratory Disorde: No Cardiovascular History of Cardiac Disorders: Yes (STENTS X 4, CHF) Cardiac Disorders: Coronary Artery Disease, Heart Attack, High Cholesterol, Hypertension Neurological History of Neurological Disord: No Reproductive System Hx Reproductive Disorders: No Genitourinary Genitourinary Disorders: UTI-Chronic Gastrointestinal History of Gastrointestinal Di: Yes Gastrointestinal Disorders: Gastroesophageal Reflux Musculoskeletal History of Musculoskeletal Dis: No Endocrine History of Endocrine Disorders: No Cancer History of Cancer: Yes (BASIL CELL CARCINOMA) Psychosocial History of Psychiatric Problem: No Suicide Risk Score: 0 Integumentary History of Skin or Integumenta: No Blood Transfusions History of Blood Disorders: No Reviewed Nursing Assessment Reviewed/Agree w Nursing PMH: Yes Family Medical History Significant Family History: Heart Disease Family Medial History: Review of Systems Time Seen by Provider: 06:22 Constitutional: Weakness, Malaise, No: Fever, Chills, Sweats, Other Eyes: No: Pain, Vision change, Conjunctivae inflammation, Eyelid inflammation, Other, Redness ENT: No: Ear pain, Ear discharge, Nose pain, Nose discharge, Nose congestion, Mouth pain, Mouth swelling, Throat pain, Throat swelling, Other Respiratory: Cough, Dry, Shortness of breath, SOB with excertion, No: Wheezing , Hemoptysis Cardiovascular: Chest Pain, Palpitations, Paroxysmal Noc. Dyspnea, Lt Headedness, No: Edema Gastrointestinal: No: Nausea, Vomiting, Abdominal Pain, Diarrhea, Constipation , Melena, Hematochezia, Other Genitourinary: No Dysuria, No Frequency, No Incontinence, No Hematuria, No Retention, No Other Neurological: Weakness, Incoordination, Confusion, No: Change in speech Exam Exam Vital Signs Date Time Temp Pulse Resp B/P (MAP) Pulse Ox O2 Delivery O2 Flow Rate FiO2 08/19/17 05:00 84 17 93 Nasal Cannula 2.00 08/19/17 04:00 99.4 90 23 170/87 (114) 92 Nasal Cannula 2.00 08/19/17 03:00 84 16 160/85 (110) 92 Nasal Cannula 2.00 08/19/17 02:00 91 20 156/83 (107) 94 Nasal Cannula 2.00 08/19/17 01:49 92 Nasal Cannula 2.00 08/19/17 01:00 86 23 94 Nasal Cannula 2.00 08/19/17 01:00 86 08/19/17 00:00 98.6 85 21 160/84 (109) 93 Nasal Cannula 2.00 08/19/17 00:00 92 Nasal Cannula 2.00 08/18/17 23:00 85 30 148/84 (105) 90 Nasal Cannula 2.00 08/18/17 22:00 74 19 149/74 (99) 90 Nasal Cannula 2.00 08/18/17 21:00 81 21 121/44 (69) 92 Nasal Cannula 2.00 08/18/17 20:30 73 19 91 Nasal Cannula 2.00 08/18/17 20:00 92 Nasal Cannula 2.00 08/18/17 20:00 99.0 82 8 134/63 (86) 93 Nasal Cannula 1.50 08/18/17 19:00 70 08/18/17 19:00 70 38 127/54 (78) 92 Nasal Cannula 1.50 08/18/17 18:45 71 15 119/59 (79) 90 Nasal Cannula 2.00 08/18/17 18:30 74 23 128/54 (78) 90 Nasal Cannula 2.00 08/18/17 18:15 74 21 125/68 (87) 90 Nasal Cannula 2.00 08/18/17 18:00 71 10 122/90 (101) 92 Nasal Cannula 2.00 08/18/17 17:45 70 19 136/90 (105) 94 Nasal Cannula 2.00 08/18/17 17:30 67 23 143/73 (96) 94 Nasal Cannula 2.00 08/18/17 17:15 66 31 143/69 (93) 95 Nasal Cannula 2.00 08/18/17 17:00 70 18 143/73 (96) Nasal Cannula 2.00 08/18/17 16:45 63 15 144/97 (113) 95 Nasal Cannula 2.00 08/18/17 16:30 65 18 138/78 (98) 95 Nasal Cannula 2.00 08/18/17 16:15 63 20 128/68 (88) 93 Nasal Cannula 2.00 08/18/17 16:00 64 23 109/77 (88) 91 Nasal Cannula 2.00 08/18/17 16:00 97.1 Nasal Cannula 2.00 17 16:00 Nasal Cannula 2.00 08/18/17 15:45 103 21 124/64 (84) 92 Nasal Cannula 2.00 08/18/17 15:30 96 27 90 Nasal Cannula 2.00 12/18/17 15:15 101 37 126/99 (108) 93 Nasal Cannula 2.00 08/18/17 15:00 100 24 94 Nasal Cannula 2.00 08/18/17 14:45 117 19 130/78 (95) 93 Nasal Cannula 2.00 08/18/17 14:30 98 13 131/103 (112) 92 Nasal Cannula 2.00 08/18/17 14:15 92 20 129/97 (108) 93 Nasal Cannula 2.00 08/18/17 14:00 103 26 144/95 (111) 94 Nasal Cannula 2.00 08/18/17 13:30 107 12 146/76 (99) 96 Nasal Cannula 2.00 08/18/17 13:15 106 14 138/107 (117) 98 Nasal Cannula 2.00 08/18/17 13:00 118 16 142/104 (117) 93 Nasal Cannula 2.00 08/18/17 13:00 118 08/18/17 12:45 87 10 142/86 (104) 94 Nasal Cannula 2.00 08/18/17 12:30 93 14 137/82 (100) 95 Nasal Cannula 2.00 08/18/17 12:15 112 16 127/82 (97) 92 Nasal Cannula 2.00 08/18/17 12:00 Nasal Cannula 2.00 08/18/17 12:00 104 12 137/82 (100) 95 Nasal Cannula 2.00 08/18/17 12:00 97.4 Nasal Cannula 2.00 08/18/17 11:45 86 18 127/82 (97) 92 Nasal Cannula 2.00 08/18/17 11:00 101 17 139/97 (111) 96 Nasal Cannula 2.00 08/18/17 10:45 117 12 133/97 (109) 94 Nasal Cannula 2.00 08/18/17 10:30 101 17 135/92 (106) 96 Nasal Cannula 2.00 08/18/17 10:15 108 13 122/80 (94) 98 Nasal Cannula 2.00 08/18/17 10:00 118 19 126/87 (100) 95 Nasal Cannula 2.00 08/18/17 09:45 124 14 126/71 (89) 94 Nasal Cannula 2.00 08/18/17 09:30 107 27 90 Nasal Cannula 2.00 08/18/17 09:15 112 138/61 (86) 93 Nasal Cannula 2.00 08/18/17 09:00 105 22 129/82 (98) 95 Nasal Cannula 2.00 08/18/17 08:45 105 15 145/109 (121) 95 Nasal Cannula 2.00 08/18/17 08:30 125 12 Nasal Cannula 2.00 08/18/17 08:23 Nasal Cannula 2.00 08/18/17 08:15 113 12 Nasal Cannula 2.00 08/18/17 08:00 Nasal Cannula 2.00 08/18/17 08:00 98.5 Nasal Cannula 2.00 08/18/17 08:00 115 13 Nasal Cannula 2.00 08/18/17 07:45 137 11 154/99 (117) Nasal Cannula 2.00 08/18/17 07:30 118 16 143/76 (98) Nasal Cannula 2.00 08/18/17 07:15 102 11 141/81 (101) Nasal Cannula 2.00 08/18/17 07:00 100 08/18/17 07:00 92 28 142/72 (95) 94 Nasal Cannula 2.00 08/18/17 06:00 90 19 142/77 (98) 95 Nasal Cannula 2.00 I & O 08/19/17 07:00 Intake Total 540 ml Output Total 1000 ml Balance -460 ml General Appearance: No Apparent Distress, WD/WN HEENT: Normal ENT Inspection Neck: Supple Respiratory: Lungs Clear, No Respiratory Distress Cardiovascular: No Murmur, Irregularly Irregular Capillary Refill: Less Than 3 Seconds Extremity: Non Tender, No Calf Tenderness Neurologic/Psychiatric: Alert, Oriented x3, Normal Mood/Affect Skin: Warm/Dry, Pallor Lymphatic: No Adenopathy Results Lab Laboratory Tests 08/17/17 08:45 08/18/17 05:00 08/19/17 05:05 Assessment/Plan Assessment/Plan Worsening SOB R/o pneumonia vs PE -Check CTA -Pt is already on Xeralto -suarez culture -start Cefepime Leukocytosis -continue to montitor -cefepime -Suarez culture Afib RVR s/p cardioversion -Cardiology following ICU psychosis, anxiety -r/o UTI -Start Risperdal .25mg BID 255 Clinical Quality Measures AMI/AHF: ASA po Prior to arrival: No DVT/VTE Risk/Contraindication: Risk Factor Score Per Nursin RFS Level Per Nursing on Admit: 2=Moderate KATE BELTRÁN DO Aug 19, 2017 06:05
[2017-08-19 06:46] LABS: BILIRUBIN,URINE NEGATIVE (NEGATIVE); KETONES,URINE NEGATIVE (NEGATIVE); LEUKOCYTE ESTERASE ,URINE 1+ (NEGATIVE); NITRITE,URINE NEGATIVE (NEGATIVE); PH,URINE 5 (5-9); PROTEIN,URINE NEGATIVE (NEGATIVE); UROBILINOGEN,URINE NORMAL (NORMAL)
[2017-08-19 06:52] LABS: WBC,URINE 0-2 /HPF
--- NOTE | 2017-08-19 07:13 | Diagnostic Imaging Report ---
INDICATION: Shortness of breath. Comparison made prior examination 08/18/2017. FINDINGS: Heart size is normal. There is moderate central pulmonary venous congestion. There is bibasilar atelectasis and/or pneumonitis. There is no pneumothorax. Mediastinum is unremarkable. IMPRESSION: Bibasilar atelectasis and/or pneumonitis. Mild central pulmonary venous congestion. Dictated by: Dictated on workstation # [id number]
[2017-08-19] MEDS: POTASSIUM CL 10MEQ/50ML IVPB 50 ML IV SCH ×6 (07:33→13:07)
[2017-08-19] MEDS ORDERED: NS 100 ML (IVPB) BAG IV ONE (07:45)
[2017-08-19] MEDS ORDERED: IOHEXOL 350 MG/ML 150 ML (OMNIPAQUE 350) VIAL IV ONE (07:45)
--- NOTE | 2017-08-19 08:16 | Progress Note-Hospitalist ---
Subjective HPI/CC On Admission Date Seen by Provider: Aug 19, 2017 Time Seen by Provider: 07:20 This is an 81-year-old white female who presents to the emergency room with a 5 day history of increased chest pressure. She notes it's worse when she lays down in the evening. She has been achy all over and thought she had developed the flu. She is found to be in new onset atrial fibrillation with rapid ventricular response and an elevated BNP consistent with congestive heart failure, etiology to be determined Subjective/Events-last exam Pt reports having a rough now, Very anxious. Feeling short of breath. Received Lasix and has no improvement in SOB. Did feel better with Xanax. Objective Exam Vital Signs Vital Sign - Last 12Hours 08/17/17 08:36 Temp 97.6 Pulse 130 Resp 24 B/P (MAP) 139/71 (93) Pulse Ox 96 O2 Delivery Nasal Cannula O2 Flow Rate 2.00 Capillary Refill : Less Than 3 Seconds General Appearance: No Apparent Distress, WD/WN Respiratory: Lungs Clear, No Accessory Muscle Use, No Respiratory Distress Cardiovascular: Regular Rate, Rhythm, No JVD, No Murmur Gastrointestinal: Non Tender, Soft Neurologic/Psychiatric: Alert, Oriented x3, Other (anxious) Results/Procedures Lab Laboratory Tests 08/19/17 05:05 Assessment/Plan Assessment and Plan Assess & Plan/Chief Complaint a-fib with RVR Diagnosis/Problems Diagnosis/Problems (1) Atrial fibrillation with rapid ventricular response Status: Acute Assessment & Plan: Follows with Dr. Medina as outpatient Cardiology consulted appreciate recs s/p EROS and cardioversion yesterday- converted to NSR Echo, EF 55-60%, severe mitral and tricuspid valve regurgitation On Xarelto for anticoagulation On Diltiazem oral (2) Dyspnea Status: Acute Assessment & Plan: Acute onset CTA ordered On Xarelto CXR shows pulm vascular congestion Continue Lasix Likely anxiety contributing- will increase Xanax as was helpful Started on Cefepime per Pulm given leukocytosis Qualifiers: Qualified Codes: R06.02 - Shortness of breath (3) Dysphagia Status: Acute Assessment & Plan: Barium swallow normal Qualifiers: Qualified Codes: R13.10 - Dysphagia, unspecified (4) CAD (coronary artery disease) Status: Chronic Assessment & Plan: s/p stenting Follows with Dr Medina Cardiology consulted Continue ASA and statin Qualifiers: Qualified Codes: I25.10 - Atherosclerotic heart disease of [place] coronary artery without angina pectoris JAIRO CALIXTO MD Aug 19, 2017 08:16
[2017-08-19] MEDS: DILTIAZEM 120 MG (CARDIZEM CD) CAP PO SCH (08:23)
[2017-08-19] MEDS: risperiDONE 0.25 MG (RisperDAL) TAB PO SCH ×2 (08:23→21:16)
[2017-08-19] MEDS ORDERED: CEFEPIME INJECTION 2,000 MG in NS (IVPB) 50 ML IV SCH ×2 (09:00→09:18)
--- NOTE | 2017-08-19 10:18 | Diagnostic Imaging Report ---
PROCEDURE: CT angiography of the chest with contrast. TECHNIQUE: Multiple contiguous axial images were obtained through the chest after uneventful bolus administration of intravenous contrast. Reconstructed CTA MIP acquisitions were also performed. INDICATION: Dyspnea. COMPARISON: Chest radiograph 08/19/2017. FINDINGS: Moderate atherosclerotic calcifications including coronary and aortic. No thoracic aortic aneurysm or dissection. No pulmonary artery filling defects. Mild cardiomegaly. No pericardial effusion. Moderate bilateral pleural effusions. Resulting compressive atelectasis in the dependent lungs. Nonspecific geographic groundglass opacities, greatest in the lung apices. Mild paraseptal emphysema. No endobronchial lesions. No mediastinal, hilar or axillary lymphadenopathy. Mild to moderate spondylotic changes in the visualized spine. No acute osseous findings. Moderate esophageal hiatal hernia. The visualized upper abdominal contents are otherwise unremarkable. IMPRESSION: 1. No thoracic aortic aneurysm or dissection. No pulmonary artery filling defects. 2. Moderate bilateral pleural effusions. Dependent compressive atelectasis. 3. Nonspecific geographic groundglass opacities are greatest in the lung apices. These likely represent air trapping given the background emphysematous changes. An infectious/inflammatory process cannot be excluded. Dictated by: Dictated on workstation # [id number]
--- NOTE | 2017-08-19 12:58 | Cardiology Progress Note ---
Cardiology SOAP Progress Note Subjective: still has shortness of breath. Objective: I&O/Vital Signs Vital Sign - Last 12Hours 08/19/17 08/19/17 08/19/17 08/19/17 01:00 01:00 01:49 02:00 Pulse 86 86 91 Resp 23 20 B/P (MAP) 156/83 (107) Pulse Ox 94 92 94 O2 Delivery Nasal Cannula Nasal Cannula Nasal Cannula O2 Flow Rate 2.00 2.00 2.00 08/19/17 08/19/17 08/19/17 08/19/17 03:00 04:00 04:00 05:00 Temp 99.4 Pulse 84 90 84 Resp 16 17 B/P (MAP) 160/85 (110) 170/87 (114) Pulse Ox 92 92 92 93 O2 Delivery Nasal Cannula Nasal Cannula Nasal Cannula Nasal Cannula O2 Flow Rate 2.00 2.00 2.00 2.00 08/19/17 08/19/17 08/19/17 08/19/17 06:00 07:00 07:00 07:01 Pulse 91 84 91 Resp 24 23 B/P (MAP) 168/86 (113) 145/90 (108) Pulse Ox 94 95 O2 Delivery Nasal Cannula Nasal Cannula Nasal Cannula O2 Flow Rate 2.00 2.00 2.00 08/19/17 08/19/17 08/19/17 08/19/17 08:00 08:00 09:00 10:00 Pulse 91 88 86 Resp 32 11 15 B/P (MAP) 149/56 (87) 143/78 (99) 148/69 (95) Pulse Ox 94 94 92 O2 Delivery Nasal Cannula Nasal Cannula Nasal Cannula Nasal Cannula O2 Flow Rate 2.00 2.00 2.00 2.00 08/19/17 08/19/17 11:00 12:00 Pulse 79 80 Resp 22 25 B/P (MAP) 139/76 (97) 138/69 (92) Pulse Ox 94 95 O2 Delivery Nasal Cannula Nasal Cannula O2 Flow Rate 2.00 2.00 Intake and Output 08/19/17 00:00 Intake Total 1040 ml Output Total 650 ml Balance 390 ml Weight (Pounds): 150 Weight (Ounces): 11.2 Weight (Calculated Kilograms): [id number] Constitutional: No appears stated age, No AAO x 3, No apparent distress, No PERRL, No well-developed, No well-nourished, No other Respiratory: No accessory muscle use, No respiratory distress, No chest tender , No chest expansion is symmetric, No chest is bilaterally symmetric, No lungs clear to percussion, No lungs clear to auscultation, No crackles, No rhonchi, No rales, No stridor, No wheezing, No pleural rub, No other Cardiovascular: irregularly irregular, tachycardia, S1 and S2, systolic murmur Gastrointestional: No tender, No soft, No round, No distended, No pulsatile mass, No organomegaly, No guarding, No rebound, No tenderness, No hernia, No mass, No audible bowel sounds, No abnormal bowel sounds, No abdominal bruits, No spleenomegaly, No other Extremities: No normal range of motion, No non-tender, No normal inspection, No pedal edema, No calf tenderness, No normal capillary refill, No pelvis stable , No calf tenderness, No inflammation, No pedal edema, No slow capillary refill , No swelling, No other, No abrasion, No clubbing, No cyanosis, No ecchymosis, No laceration, No no lower extremity edema bilateral, No significant edema, No tenderness, No wound Neurologic/Psychiatric: No frame gate mortiser operator II-XII nml as tested, No no motor/sensory deficits, No alert, No normal mood/affect, No oriented x 3, No abnormal cerebellar tests, No abnormal frame gate mortiser operator II-XII, No abnormal gait, No aphasia, No EOM palsy, No facial droop, No motor weakness, No sensory deficit, No depressed affect, No disoriented x 3, No other, No grossly intact, No power is 5/5 both on sides Skin: No normal color, No warm/dry, No cyanosis, No cool, No diaphoresis, No damp, No ecchymosis, No jaundice, No mottled, No pallor, No rash, No tattoos/ piercings, No ulcerations, No rash on exposed areas, No ulcerations on exposed areas, No other Results/Procedures: Labs Laboratory Tests 08/19/17 05:05: White Blood Count 13.2H, Red Blood Count 4.29L, Hemoglobin 12.4, Hematocrit 39, Mean Corpuscular Volume 90, Mean Corpuscular Hemoglobin 29, Mean Corpuscular Hemoglobin Concent 32, Red Cell Distribution Width 14.5, Platelet Count 158, Mean Platelet Volume 12.1H, Neutrophils (%) (Auto) 82H, Lymphocytes (%) (Auto) 6L, Monocytes (%) (Auto) 12, Eosinophils (%) (Auto) 0, Basophils (%) (Auto) 0, Neutrophils # (Auto) 10.8H, Lymphocytes # (Auto) 0.8L, Monocytes # (Auto) 1.5H, Eosinophils # (Auto) 0.0, Basophils # (Auto) 0.0, Sodium Level 144, Potassium Level 3.6, Chloride Level 112H, Carbon Dioxide Level 21, Anion Gap 11, Blood Urea Nitrogen 22H, Creatinine 0.83, Estimat Glomerular Filtration Rate > 60, BUN /Creatinine Ratio 27, Glucose Level 117H, Calcium Level 8.9, Phosphorus Level 2.3, Magnesium Level 1.9, B-Type Natriuretic Peptide 761.1H 08/19/17 05:25: Blood Gas Puncture Site RIGHT BRACIAL, Blood Gas Patient Temperature 98.6, Arterial Blood pH 7.41, Arterial Blood Partial Pressure CO2 34L, Arterial Blood Partial Pressure O2 65L, Arterial Blood HCO3 21L, Arterial Blood Total CO2 22.3 , Arterial Blood Oxygen Saturation 94, Arterial Blood Base Excess -2.6L, Red Test NA, Blood Gas Ventilator Setting NO, Blood Gas Inspired Oxygen 2LNC 08/19/17 06:40: Urine Color YELLOW, Urine Clarity SLIGHTLY CLOUDY, Urine pH 5, Urine Specific [place] 1.010L, Urine Protein NEGATIVE, Urine Glucose (UA) NEGATIVE, Urine Ketones NEGATIVE, Urine Nitrite NEGATIVE, Urine Bilirubin NEGATIVE, Urine Urobilinogen NORMAL, Urine Leukocyte Esterase 1+H, Urine RBC (Auto) 1+H, Urine RBC 2-5H, Urine WBC 0-2, Urine Squamous Epithelial Cells 2-5, Urine Crystals NONE, Urine Bacteria NEGATIVE, Urine Casts NONE, Urine Mucus NEGATIVE, Urine Culture Indicated NO 08/19/17 06:46: Lactic Acid Level 1.07 A/P: Assessment/Dx: shortness of breath, acute diastolic congestive heart failure. CAD, history of stents. Atrial fibrillation with rapid ventricular rate. severe mitral regurgitation Plan: shortness of breath, acute diastolic congestive heart failure: Last echocardiogram was done in 2016 which showed normal EF. Diastolic dysfunction was noted. Echocardiogram . Continue Lasix.. CAD, history of stents: on aspirin, Plavix and atorvastatin. Last PCI was a few years ago. Since for atrial fibrillation was have to start him on an oral anticoagulation agent we may have to discontinue either aspirin or Plavix. I will defer to Dr. Medina tomorrow to decide. Atrial fibrillation with rapid ventricular rate: successful cardioversion yesterday. Patient stays in sinus rhythm with occasional PACs. Continue oral anticoagulation severe mitral regurgitation: transesophageal echocardiogram showed severe mitral regurgitation. Will require surgery. I spoke with the patient. Will require transfer to [facility]. Coronary angiography will be recommended before surgery. Thank you for your consultation. Please call me if you have any questions. Delfina Laguerre MD, FACP, FACC, FSCAI, FHRS, CCDS Interventional Cardiology Cardiac Electrophysiology Vascular Medicine and Endovascular Interventions Clinical Quality Measures AMI/AHF: ASA po Prior to arrival: Jose Mcghee MD Aug 19, 2017 12:58 pm
[2017-08-19] MEDS: FERROUS SULF 325 MG (IRON) TAB PO SCH (14:15)
[2017-08-19] MEDS: ASPIRIN E.C. 81 MG (ECOTRIN) TAB PO SCH (14:15)
[2017-08-19] MEDS: FUROSEMIDE 40 MG/4 ML INJ (LASIX) IVP SCH (14:27)
[2017-08-19] MEDS: KCL 10 MEQ TAB (MICRO K) PO SCH (16:22)
[2017-08-19] MEDS: RIVAROXABAN 15 MG TABLET (XARELTO) PO SCH (16:22)
[2017-08-19] MEDS: ATORVASTATIN 10 MG (LIPITOR) TABLET PO SCH (21:16)
[2017-08-19] MEDS: FAMOTIDINE 20 MG (PEPCID) TABLET PO SCH (21:16)
[2017-08-20] VITALS (25 sets, daily range): BP systolic 104–159; BP diastolic 50–97
[2017-08-20 05:28] LABS: BASOPHILS % (AUTO) 0 % (0-10); EOSINOPHILS # (AUTO) 0.2 10^3/uL (0.0-0.3); EOSINOPHILS % (AUTO) 2 % (0-10); LYMPHOCYTES # (AUTO) 1.6 X 10^3 (1.0-4.0); LYMPHOCYTES % (AUTO) 16 % (12-44); MEAN CORPUSCULAR HEMOGLOBIN 29 PG (25-34); MEAN CORPUSCULAR HGB CONC 32 G/DL (32-36); MEAN CORPUSCULAR VOLUME 91 FL (80-99); MEAN PLATELET VOLUME 11.9 FL (7.4-10.4); MONOCYTES # (AUTO) 1.2 X 10^3 (0.0-1.0); MONOCYTES % (AUTO) 12 % (0-12); NEUTROPHILS # (AUTO) 6.9 X 10^3 (1.8-7.8); NEUTROPHILS % (AUTO) 70 % (42-75); PLATELET COUNT 144 10^3/uL (130-400); RED BLOOD COUNT 4.18 10^6/uL (4.35-5.85); RED CELL DISTRIBUTION WIDTH 14.6 % (10.0-14.5); WHITE BLOOD COUNT 9.9 10^3/uL (4.3-11.0)
[2017-08-20 05:45] LABS: ANION GAP 9 MMOL/L (5-14); BLOOD UREA NITROGEN 20 MG/DL (7-18); BUN/CREATININE RATIO 25; CALCIUM 8.8 MG/DL (8.5-10.1); CARBON DIOXIDE 24 MMOL/L (21-32); CHLORIDE 109 MMOL/L (98-107); CREATININE SERUM 0.81 MG/DL (0.60-1.30); GFR ESTIMATED > 60; GLUCOSE 94 MG/DL (70-105); MAGNESIUM 1.9 MG/DL (1.8-2.4); PHOSPHORUS 2.2 MG/DL (2.3-4.7); POTASSIUM 3.6 MMOL/L (3.6-5.0); SODIUM 142 MMOL/L (135-145)
[2017-08-20] MEDS ORDERED: POTASSIUM CL 10MEQ/50ML IVPB 50 ML IV SCH (06:00)
[2017-08-20] MEDS ORDERED: KCL 20 MEQ TAB (K-DUR) PO SCH (06:00)
[2017-08-20] MEDS ORDERED: MAGNESIUM 1 GM/100 ML IVPB 100 ML IV SCH (06:00)
--- NOTE | 2017-08-20 07:17 | Pulmonary Progress Note ---
Subjective Time Seen by Provider: 07:23 Subjective/Events-last exam pt is doing much better. Exam Exam Vital Signs Date Time Temp Pulse Resp B/P (MAP) Pulse Ox O2 Delivery O2 Flow Rate FiO2 08/20/17 06:00 87 16 157/78 (104) 95 Nasal Cannula 2.00 08/20/17 05:00 84 19 145/80 (101) 97 Nasal Cannula 2.00 08/20/17 04:00 98.9 70 21 116/50 (72) 93 Nasal Cannula 2.00 08/20/17 04:00 93 Nasal Cannula 2.00 08/20/17 03:00 69 19 126/60 (82) 95 Nasal Cannula 2.00 08/20/17 02:00 74 20 113/56 (75) 95 Nasal Cannula 2.00 08/20/17 01:00 68 08/20/17 01:00 67 20 113/54 (73) 94 Nasal Cannula 2.00 08/20/17 00:00 98.4 70 21 108/50 (69) 93 Nasal Cannula 2.00 08/20/17 00:00 94 Nasal Cannula 2.00 08/19/17 23:00 73 20 108/48 (68) 91 Nasal Cannula 2.00 08/19/17 22:00 80 21 118/57 (77) 93 Nasal Cannula 2.00 08/19/17 21:00 81 23 117/64 (81) 95 Nasal Cannula 2.00 08/19/17 20:00 98.7 81 23 117/64 (81) 95 Nasal Cannula 2.00 08/19/17 20:00 95 Nasal Cannula 2.00 08/19/17 19:00 84 12 111/61 (78) 96 Nasal Cannula 2.00 08/19/17 19:00 84 08/19/17 18:00 79 24 135/72 (93) 97 Nasal Cannula 2.00 08/19/17 17:00 82 13 100/70 (80) 95 Nasal Cannula 2.00 08/19/17 16:00 78 22 137/70 (92) 95 Nasal Cannula 2.00 08/19/17 16:00 Nasal Cannula 2.00 08/19/17 16:00 97.1 Nasal Cannula 2.00 08/19/17 15:00 81 24 142/77 (98) 94 Nasal Cannula 2.00 08/19/17 14:00 80 23 124/73 (90) 95 Nasal Cannula 2.00 08/19/17 13:00 80 08/19/17 13:00 83 17 122/72 (89) 96 Nasal Cannula 2.00 08/19/17 12:00 80 25 138/69 (92) 95 Nasal Cannula 2.00 08/19/17 12:00 Nasal Cannula 2.00 08/19/17 12:00 97.3 Nasal Cannula 2.00 08/19/17 11:00 79 22 139/76 (97) 94 Nasal Cannula 2.00 08/19/17 10:00 86 15 148/69 (95) 92 Nasal Cannula 2.00 08/19/17 09:00 88 11 143/78 (99) 94 Nasal Cannula 2.00 08/19/17 08:00 98.9 Nasal Cannula 2.00 08/19/17 08:00 91 32 149/56 (87) 94 Nasal Cannula 2.00 08/19/17 08:00 Nasal Cannula 2.00 I & O 08/20/17 07:00 Intake Total 2190 ml Output Total 2125 ml Balance 65 ml General Appearance: No Apparent Distress, WD/WN HEENT: Normal ENT Inspection Neck: Supple Respiratory: Lungs Clear, No Accessory Muscle Use, No Respiratory Distress Cardiovascular: Regular Rate, Rhythm, No JVD, No Murmur Capillary Refill: Less Than 3 Seconds Extremity: Non Tender, No Calf Tenderness Neurologic/Psychiatric: Alert, Oriented x3, Other (anxious) Skin: Warm/Dry, Pallor Lymphatic: No Adenopathy Results Lab Laboratory Tests 08/19/17 05:05 08/20/17 05:00 Assessment/Plan Assessment/Plan SOB with hypoxia secondary to CHFAE -- doubt infection -D/C Abx -titrate oxygen as tolerated - CTA reviewed -suarez culture pending Leukocytosis - isolated x 1 probably lab error. No fever or signs of active infection -continue to montitor -cefepime -- d/c -Suarez culture Afib RVR s/p cardioversion -Cardiology following ICU psychosis, anxiety -r/o UTI - Risperdal 0.5mg QHS -D/C xanax PT is doing much better will transfer to 4th floor and continue lasix. Labs and radiology reviewed. 233 Clinical Quality Measures AMI/AHF: ASA po Prior to arrival: No DVT/VTE Risk/Contraindication: Risk Factor Score Per Nursin RFS Level Per Nursing on Admit: 2=Moderate KATE BELTRÁN DO Aug 20, 2017 07:17
[2017-08-20] MEDS ORDERED: KCL 20 MEQ TAB (K-DUR) PO NR (07:45)
[2017-08-20] MEDS ORDERED: LIDOCAINE 1% INJ 50 ML (XYLOCAINE) VIAL ONE (07:56)
[2017-08-20] MEDS ORDERED: NS IV 1000 ML 1,000 ML ONE (07:56)
[2017-08-20] MEDS ORDERED: HEParin (CATH LAB) 2,000 ML IV ONE (07:56)
[2017-08-20] MEDS ORDERED: POTASSIUM CL 10MEQ/50ML IVPB 100 ML IV ONE (07:58)
[2017-08-20] MEDS ORDERED: NS (IVPB) 250 ML ONE (07:58)
[2017-08-20] MEDS ORDERED: NS (IVPB) 250 ML IV ONE (08:00)
[2017-08-20] MEDS ORDERED: ACETAMINOPHEN 650 MG SUPP (TYLENOL) PR PRN (08:00)
[2017-08-20] MEDS ORDERED: MIDAZOLAM 2 MG/2 ML (VERSED) VIAL ONE ×2 (08:03→11:05)
[2017-08-20] MEDS ORDERED: fentaNYL INJECTION 100 MCG/2 ML AMP ONE (08:03)
[2017-08-20] MEDS ORDERED: VERAPAMIL 5 MG/2 ML (CALAN) VIAL IV ONE (08:12)
[2017-08-20] MEDS ORDERED: HEParin 1000 UNIT/ML (10ML VIAL) FOR BOLUS ONE ×2 (08:12→09:02)
[2017-08-20] MEDS ORDERED: NITROGLYCERIN DRIP 25 MG/D5W 0 ML IV ONE (08:13)
[2017-08-20] MEDS: POTASSIUM CL 10MEQ/50ML IVPB 50 ML IV SCH ×2 (08:15→11:54)
--- NOTE | 2017-08-20 08:37 | Diagnostic Imaging Report ---
EXAMINATION: Portable AP view of the chest. INDICATION: Atrial fibrillation. FINDINGS: The heart is moderately enlarged. There are bilateral small effusions and minimal bibasilar atelectasis or infiltrate. The mediastinum and tesfaye appear unremarkable. No pneumothorax. Overall, there is a slight improvement compared to 08/19/2017. IMPRESSION: Slightly improved bibasilar infiltrate or atelectasis with small effusions. Dictated by: Dictated on workstation # [id number]
[2017-08-20] MEDS ORDERED: POTASSIUM PHOSPHATE INJ 30 MM in NS (IVPB) 250 ML IV ONE (08:45)
[2017-08-20] MEDS ORDERED: CARVEDILOL 6.25 MG (COREG) TAB PO SCH (09:00)
[2017-08-20] MEDS ORDERED: risperiDONE 0.25 MG (RisperDAL) TAB PO SCH ×2 (09:00→21:00)
[2017-08-20] MEDS ORDERED: ADENOSINE 3 MG/1 ML (ADENOSCAN) 30ML VIAL IV ONE (09:07)
--- NOTE | 2017-08-20 09:29 | Cardiac Procedure Note-CS/ASA ---
Pre-Procedure Note Pre-Op Procedure Note H&P Reviewed The H&P was reviewed, patient examined and no changes noted. Date H&P Reviewed: Aug 20, 2017 Time H&P Reviewed: 08:30 Conscious Sedation Pre-Proced Time Reviewed: 08:30 ASA Class: 3 Airway Mallampati Classification: (council appropriate class) I. II. III, IV Lungs Heart ASA score ASA 1: a normal healthy patient ASA 2: a patient with a mild systemic disease (mid diabetes, controlled hypertension, obesity ASA 3: a patient with a severe systemic disease that limits activity (angina , COPD, prior Myocardial infarction) ASA 4: a patient with an incapacitating disease that is a constant threat to life (CHF, renal failure) ASA 5: a moribund patient not expected to survive 24 hrs. (ruptured aneurysm) ASA 6: a declared brain patient whose organs are being harvested. For emergent operations, add the letter E after the classification Grade 1 Sedation Plan: Analgesia, Amnesia, Plan communicated to team members, Discussed options with patient/fam, Discussed risks with patient/fam Note The patient is an appropriate candidate to undergo the planned procedure, sedation, and anesthesia. The patient immediately re-assessed prior to indication. Jose JONES MD Aug 20, 2017 9:29 am
[2017-08-20] MEDS ORDERED: FUROSEMIDE 40 MG/4 ML INJ (LASIX) IVP NR (09:30)
[2017-08-20] MEDS ORDERED: NS IV 1000 ML 1,000 ML IV SCH ×2 (09:31→09:45)
--- NOTE | 2017-08-20 09:31 | Cardiology Post Procedure Note ---
Post-Procedure Note Physician (s)/Information Management Manager (s) Physician Jose JONES MD Pre-Procedure Diagnosis Pre-Procedure Diagnosis: Severe MR, Pre-cardiac surgery Post-Procedure Note Procedure Start Date: Aug 20, 2017 Procedure Start Time: 08:30 Name of Procedure: Coronary angiography, LHC, FFR mid LAD Findings/Procedure Note Moderate mid LAD stenosis, FFR 0.86. Patent stents in the proximal LAD. Normal LVEF. LVEDP 23mmhg - lasix 80mg IV given Anesthesia Type: Conscious Sedation Estimated blood loss (mL): 10 Contrast Amount: 85 Post-Procedure Diagnosis Post-operative diagnosis: Moderate mid LAD stenosis, not significant by FFR. Elevated LVEDP Jose JONES MD Aug 20, 2017 9:31 am
[2017-08-20] MEDS ORDERED: FUROSEMIDE 40 MG/4 ML INJ (LASIX) ONE (09:34)
[2017-08-20] MEDS ORDERED: PATIENT MAY USE OWN MEDS, ALL PO SCH (09:45)
[2017-08-20] MEDS ORDERED: NS (IVPB) 100 ML ONE (10:04)
[2017-08-20] MEDS ORDERED: DILTIAZEM 125 MG/25 ML IV (CARDIZEM) IV ONE (10:05)
[2017-08-20] MEDS ORDERED: DILTIAZEM IV FOR DRIP 125 MG in NS (IVPB) 100 ML IV SCH ×4 (10:15)
[2017-08-20] MEDS: FUROSEMIDE 40 MG/4 ML INJ (LASIX) IVP SCH (10:28)
[2017-08-20] MEDS ORDERED: proPOfol 200 MG/20 ML (DIPRIVAN) VIAL IV ONE (11:05)
[2017-08-20] MEDS ORDERED: AMIODARONE IV SOLUTION 200 ML IV ONE ×2 (11:40→11:45)
[2017-08-20] MEDS ORDERED: AMIODARONE IV SOLUTION 200 ML IV SCH (11:45)
[2017-08-20] MEDS ORDERED: fentaNYL INJECTION 100 MCG/2 ML AMP IVP PRN (12:15)
--- NOTE | 2017-08-20 13:13 | Cardiology Post Procedure Note ---
Post-Procedure Note Physician (s)/Primary Class Teacher (s) Physician Jose JONES MD Pre-Procedure Diagnosis Pre-Procedure Diagnosis: atrial fibrillation with rapid ventricular rate Post-Procedure Note Procedure Start Date: Aug 20, 2017 Procedure Start Time: 11:00 Name of Procedure: Direct electrical cardioversion Findings/Procedure Note Atrial fibrillation with rapid ventricular rate. Successfully converted with one synchronized 200 J shock with anesthesia support. Estimated blood loss (mL): 0 Contrast Amount: 0 Post-Procedure Diagnosis Post-operative diagnosis: Successful external cardioversion converted atrial fibrillation with rapid ventricular rate to sinus rhythm with numerous PACs. Jose JONES MD Aug 20, 2017 1:13 pm
--- NOTE | 2017-08-20 13:17 | Cardiology Progress Note ---
Cardiology SOAP Progress Note Subjective: Shortness of breath, palpitations Objective: I&O/Vital Signs Vital Sign - Last 12Hours 08/20/17 08/20/17 08/20/17 08/20/17 02:00 03:00 04:00 04:00 Temp 98.9 Pulse 74 69 70 Resp 20 19 21 B/P (MAP) 113/56 (75) 126/60 (82) 116/50 (72) Pulse Ox 95 95 93 93 O2 Delivery Nasal Cannula Nasal Cannula Nasal Cannula Nasal Cannula O2 Flow Rate 2.00 2.00 2.00 2.00 08/20/17 08/20/17 08/20/17 08/20/17 05:00 06:00 07:00 07:01 Pulse 84 87 87 88 Resp 19 16 19 B/P (MAP) 145/80 (101) 157/78 (104) 159/66 (97) Pulse Ox 97 95 95 O2 Delivery Nasal Cannula Nasal Cannula Nasal Cannula O2 Flow Rate 2.00 2.00 2.00 08/20/17 08/20/17 08/20/17 08:00 10:00 10:29 Pulse 89 134 142 Resp 23 10 15 B/P (MAP) 158/78 (104) 153/87 (109) 153/87 Pulse Ox 96 96 95 O2 Delivery Nasal Cannula Nasal Cannula O2 Flow Rate 2.00 2.00 4.00 Intake and Output 08/20/17 00:00 Intake Total 1740 ml Output Total 1825 ml Balance -85 ml Weight (Pounds): 145 Weight (Ounces): 12.8 Weight (Calculated Kilograms): [id number] Constitutional: No appears stated age, No AAO x 3, No apparent distress, No PERRL, No well-developed, No well-nourished, No other Respiratory: No accessory muscle use, No respiratory distress, No chest tender , No chest expansion is symmetric, No chest is bilaterally symmetric, No lungs clear to percussion, No lungs clear to auscultation, No crackles, No rhonchi, No rales, No stridor, No wheezing, No pleural rub, No other Cardiovascular: irregularly irregular, tachycardia, S1 and S2, systolic murmur Gastrointestional: No tender, No soft, No round, No distended, No pulsatile mass, No organomegaly, No guarding, No rebound, No tenderness, No hernia, No mass, No audible bowel sounds, No abnormal bowel sounds, No abdominal bruits, No spleenomegaly, No other Extremities: No normal range of motion, No non-tender, No normal inspection, No pedal edema, No calf tenderness, No normal capillary refill, No pelvis stable , No calf tenderness, No inflammation, No pedal edema, No slow capillary refill , No swelling, No other, No abrasion, No clubbing, No cyanosis, No ecchymosis, No laceration, No no lower extremity edema bilateral, No significant edema, No tenderness, No wound Neurologic/Psychiatric: No coupon and bond collection clerk II-XII nml as tested, No no motor/sensory deficits, No alert, No normal mood/affect, No oriented x 3, No abnormal cerebellar tests, No abnormal coupon and bond collection clerk II-XII, No abnormal gait, No aphasia, No EOM palsy, No facial droop, No motor weakness, No sensory deficit, No depressed affect, No disoriented x 3, No other, No grossly intact, No power is 5/5 both on sides Skin: No normal color, No warm/dry, No cyanosis, No cool, No diaphoresis, No damp, No ecchymosis, No jaundice, No mottled, No pallor, No rash, No tattoos/ piercings, No ulcerations, No rash on exposed areas, No ulcerations on exposed areas, No other Results/Procedures: Labs Laboratory Tests 08/20/17 05:00: White Blood Count 9.9, Red Blood Count 4.18L, Hemoglobin 12.1, Hematocrit 38, Mean Corpuscular Volume 91, Mean Corpuscular Hemoglobin 29, Mean Corpuscular Hemoglobin Concent 32, Red Cell Distribution Width 14.6H, Platelet Count 144, Mean Platelet Volume 11.9H, Neutrophils (%) (Auto) 70, Lymphocytes (%) (Auto) 16 , Monocytes (%) (Auto) 12, Eosinophils (%) (Auto) 2, Basophils (%) (Auto) 0, Neutrophils # (Auto) 6.9, Lymphocytes # (Auto) 1.6, Monocytes # (Auto) 1.2H, Eosinophils # (Auto) 0.2, Basophils # (Auto) 0.0, Sodium Level 142, Potassium Level 3.6, Chloride Level 109H, Carbon Dioxide Level 24, Anion Gap 9, Blood Urea Nitrogen 20H, Creatinine 0.81, Estimat Glomerular Filtration Rate > 60, BUN /Creatinine Ratio 25, Glucose Level 94, Calcium Level 8.8, Phosphorus Level 2.2L , Magnesium Level 1.9 A/P: Assessment/Dx: shortness of breath, acute diastolic congestive heart failure. CAD, history of stents. Atrial fibrillation with rapid ventricular rate. severe mitral regurgitation Plan: shortness of breath, acute diastolic congestive heart failure: Normal ejection fraction on echocardiogram. Diastolic dysfunction was noted. Continue IV Lasix. CAD, history of stents: on aspirin, Plavix and atorvastatin. Last PCI was a few years ago. DC Plavix. Continue aspirin and Xarelto. Atrial fibrillation with rapid ventricular rate: Post coronary angiography patient went back into atrial fibrillation with rapid ventricular rate. Cardizem infusion started. Amiodarone infusion started. Repeat cardioversion successfully converted to sinus rhythm with PACs. However she may convert back to atrial fibrillation. severe mitral regurgitation: transesophageal echocardiogram showed severe mitral regurgitation. I'm recommending inpatient transfer to [facility] for evaluation by the heart team for either cardiac surgery or mitral clip. I' ve spoken to Dr. Betts. Preoperative coronary angiography performed this morning which showed patent proximal LAD stents however just distal to the last stent in the mid LAD there was a moderate stenosis, stenosis severity was 50-60 percent. FFR was 0.86 which is acceptable. Elevated LVEDP of 23 mmHg therefore IV Lasix 80 mg given. Patient to be transferred to [facility] this afternoon. Thank you for your consultation. Please call me if you have any questions. Delfina Laguerre MD, FACP, FACC, FSCAI, FHRS, CCDS Interventional Cardiology Cardiac Electrophysiology Vascular Medicine and Endovascular Interventions Clinical Quality Measures AMI/AHF: ASA po Prior to arrival: Jose Mcghee MD Aug 20, 2017 1:17 pm
--- NOTE | 2017-08-20 13:22 | Cardiac Procedure Note ---
Cardiology Procedures Date of Procedure 08/20/17 [id number] Called to ICU 11 for Cardioversion. Patient reports allergy to PCN. She had a heart cath this am and returned to ICU in A Fib with RVR. HR 150-170s. Patient given a total of 80 mg of Propofol for the procedure. She received two shocks at 200J after the first was unsuccessful. The patient converted to NSR, HR 80-90's; however, Dr Laguerre was not convinced she would stay in NSR. Plans are being made for transfer to another facility for further cardiac management. Patient is stable after procedure. O2 3L/nc with etco2 monitoring. Report off to INDUSTRIAL ECONOMIST. AMALIA FARRIS CRNA Aug 20, 2017 13:22
--- NOTE | 2017-08-20 13:45 | Discharge Summary-Hospitalist ---
Diagnosis/Chief Complaint Date of Admission Aug 17, 2017 at 10:24 Date of Discharge Admission Diagnosis 1. New onset atrial fibrillation with RVR 2. Elevated BNP consistent with congestive heart failure etiology to be determined last echocardiogram that I could find was in 2016- will need to repeat. May be secondary to diastolic dysfunction from afib. 3. Coronary artery disease with a history of stent placement and previous myocardial infarctions 4. Chest pressure -possibly secondary to A. fib versus angina from the rapid ventricular response Plan is to admit to the ICU on Cardizem drip for rate control consult cardiology and further treatment based on etiologies to be determined Discharge Diagnosis a-fib with RVR (1) Atrial fibrillation with rapid ventricular response Status: Acute Assessment & Plan: Follows with Dr. Medina as outpatient Cardiology consulted appreciate recs s/p EROS and cardioversion yesterday- converted to NSR but converted back to a- fib with RVR today after cath Underwent cardioversion again 08/20 Echo, EF 55-60%, severe mitral and tricuspid valve regurgitation Will be transferred to [facility] for CTS evaluation Cardiac cath- revealed patent stent On Xarelto for anticoagulation On Diltiazem oral (2) Dyspnea Status: Acute Assessment & Plan: Acute onset CTA ordered and no PE or PNA On Xarelto CXR shows pulm vascular congestion Continue Lasix Likely anxiety contributing- continue Xanax and Risperdal (3) Dysphagia Status: Acute Assessment & Plan: Barium swallow normal (4) CAD (coronary artery disease) Status: Chronic Assessment & Plan: s/p stenting Follows with Dr Medina Cardiology consulted Continue ASA and statin Discharge Summary Consultations Dr Laguerre- Cardiology Discharge Physical Examination Allergies: Coded Allergies: Penicillins (Unverified Allergy, Mild, 04/19/09) Vitals & I&Os Vital Signs Date Time Temp Pulse Resp B/P (MAP) Pulse Ox O2 Delivery O2 Flow Rate FiO2 08/20/17 10:29 142 15 153/87 95 4.00 08/20/17 10:00 Nasal Cannula 08/20/17 04:00 98.9 Hospital Course Pt is an 81yoCF with a PMH of CAD s/p stenting who presented to the ER for weakness and was found to be in a-fib with RVR. She was admitted to the ICU due to cardizem gtt. She underwent EROS and cardioversion and successfully converted to normal sinus rhythm. An echo was obtained that showed severe mitral regurgitation and tricuspid regurgitation. She underwent cardiac cath for evaluation of her CAD and stent which revealed patent stents. Shortly after her cath she went back in to [facility] with RVR. She underwent cardioversion again and du to the severity of her valvular disease she was transferred to [facility] for CTS evaluation. Dr. Laguerre arranged transfer to [facility]. Labs (last 24 hrs) Laboratory Tests 08/20/17 05:00: White Blood Count 9.9, Red Blood Count 4.18L, Hemoglobin 12.1, Hematocrit 38, Mean Corpuscular Volume 91, Mean Corpuscular Hemoglobin 29, Mean Corpuscular Hemoglobin Concent 32, Red Cell Distribution Width 14.6H, Platelet Count 144, Mean Platelet Volume 11.9H, Neutrophils (%) (Auto) 70, Lymphocytes (%) (Auto) 16 , Monocytes (%) (Auto) 12, Eosinophils (%) (Auto) 2, Basophils (%) (Auto) 0, Neutrophils # (Auto) 6.9, Lymphocytes # (Auto) 1.6, Monocytes # (Auto) 1.2H, Eosinophils # (Auto) 0.2, Basophils # (Auto) 0.0, Sodium Level 142, Potassium Level 3.6, Chloride Level 109H, Carbon Dioxide Level 24, Anion Gap 9, Blood Urea Nitrogen 20H, Creatinine 0.81, Estimat Glomerular Filtration Rate > 60, BUN /Creatinine Ratio 25, Glucose Level 94, Calcium Level 8.8, Phosphorus Level 2.2L , Magnesium Level 1.9 Discharge Home Medications: Active Scripts Active Reported Iron (Ferrous Sulfate) 325 Mg Tablet 325 Mg PO 1200 Furosemide 20 Mg Tablet 10 Mg PO DAILY TAKES 1/2 OF A (20 MG) TABLET Clopidogrel (Clopidogrel Bisulfate) 75 Mg Tablet 75 Mg PO DAILY Fenofibrate 160 Mg Tablet 160 Mg PO 1630 Carvedilol 6.25 Mg Tablet 6.25 Mg PO BID Atorvastatin Calcium 10 Mg Tablet 5 Mg PO HS TAKES 1/2 OF A (10 MG) TABLET Potassium Chloride 10 Meq Tablet.er 10 Meq PO 1630 Ranitidine HCl 150 Mg Tablet 150 Mg PO BID Cranberry (Cranberry Extract) 500 Mg Capsule 500 Mg PO 1200 Aspirin EC (Aspirin) 81 Mg Tablet.dr 81 Mg PO 1200 Fish Oil 1,000 mg Softgel ([place]-3/Dha/Epa/Fish Oil) 1 Each Capsule 1,000 Mg PO TID Instructions to patient/family Please see electronic discharge instructions given to patient. Clinical Quality Measures AMI/AHF: ASA po Prior to arrival: No DVT/VTE Risk/Contraindication: Risk Factor Score Per Nursin RFS Level Per Nursing on Admit: 2=Moderate Copy Copies To 1: GORDO OVERTON DO; Jose LAGUERRE MD Problem Qualifiers (1) Dyspnea: Dyspnea type: shortness of breath Qualified Codes: R06.02 - Shortness of breath (2) Dysphagia: Dysphagia type: unspecified Qualified Codes: R13.10 - Dysphagia, unspecified (3) CAD (coronary artery disease): Coronary Disease-Associated Artery/Lesion type: mc[place]ath artery [place] vs. transplanted heart: mc[place] heart Associated angina: without angina Qualified Codes: I25.10 - Atherosclerotic heart disease of mcgrath coronary artery without angina pectoris JAIRO CALIXTO MD Aug 20, 2017 13:45
--- NOTE | 2017-08-20 15:18 | CARDIAC CATHETERIZATION ---
DATE OF SERVICE: 08/20/2017 CORONARY ANGIOGRAPHY AND FRACTIONAL FLOW RESERVE REPORT INDICATION: Severe mitral regurgitation, previous history of CAD, precardiac surgery. PREOPERATIVE DIAGNOSES: 1. Severe mitral regurgitation. 2. Atrial fibrillation. 3. History of percutaneous coronary intervention. 4. Precardiac surgery. POSTOPERATIVE DIAGNOSES: 1. Moderate mid left anterior descending disease with negative fractional flow reserve. 2. Patent stents in the proximal left anterior descending. 3. Normal left ventricular function with elevated left ventricular end-diastolic pressure. HISTORY: The patient is an 81-year-old lady who presented with atrial fibrillation with rapid ventricular rate. TSH at cardioversion was performed. EROS also showed severe mitral regurgitation. She was successfully cardioverted. However, the patient will require cardiac surgery for severe mitral regurgitation. Coronary angiography was recommended precardiac surgery. PROCEDURES PERFORMED: 1. Coronary angiography. 2. Left heart catheterization. 3. FFR to the mid LAD. COMPLICATIONS: None. SPECIMEN: None. ESTIMATED BLOOD LOSS: 10 mL. ANESTHESIA: Conscious sedation. ANTICOAGULATION: IV heparin. CONTRAST: 85 mL of Omnipaque. FLUOROSCOPY DOSE: 292 milligrays. PROCEDURE DETAILS: The patient was brought to the animal laboratory helper after informed consent was taken. All the risks and complications were explained in detail. She was draped and prepped in the usual sterile fashion. Access was gained in the right femoral artery with a 6-[place] sheath. Left heart catheterization was performed with a pigtail catheter. RCA was engaged with a JR4 catheter and left coronary system was engaged with a JL4 catheter. FINDINGS: 1. Left main: Patent. 2. LAD: Patent stent in the proximal LAD; however, there is a moderate stenosis in the mid LAD. Stenosis severity is 50 to 60%. The LAD is a transapical vessel. 3. Left circumflex artery: Mild diffuse disease. 4. RCA: Mild diffuse disease. 5. Left heart catheterization: LV pressure 161/5 mmHg. LVEDP 23 mmHg. Aortic pressure 168/80 mmHg. No gradient across the aortic valve. Normal LV function with no wall motion abnormalities. Severe mitral regurgitation is noted. RECOMMENDATIONS: 1. FFR to the mid LAD is recommended. 2. FFR details: JL4 guide catheter, FFR guidewire, IV heparin for anticoagulation. The lesion was crossed easily with the FFR wire. The Baseline FFR was 0.92. Adenosine at 140 mcg per kg per minute was started. Glucose continued for 2 minutes. Lowest FFR was 0.86. This was acceptable. Therefore, the lesion is not significant. The wire was taken out and post-angiogram showed no vascular complication. CONCLUSION: 1. Severe mitral regurgitation. Referral for cardiac surgery or MitraClip. 2. Moderate LAD stenosis not significant by FFR. 3. Patent stents in the LAD. 4. Normal LV function. However, elevated LVEDP is noted. Job ID: [id number] DocumentID: [id number] Dictated Date: 08/20/2017 11:14:57 Center Receptionist Date: 08/20/2017 15:17:24 Dictated By: BINTA JONES MD
--- NOTE | 2017-08-20 23:08 | OPERATIVE REPORT ---
DATE OF SERVICE: 08/20/2017 DIRECT EXTERNAL CARDIOVERSION REPORT INDICATIONS: Atrial fibrillation with rapid ventricular rate. PROCEDURE IN DETAILS: Direct external electrical cardioversion was performed with anesthesia support. Two synchronized 200 joule shocks were used. The first shock did not convert to sinus rhythm. The second shock converted to sinus rhythm with multiple PACs. The patient tolerated the procedure well and did not have any complication. CONCLUSION: 1. Successful cardioversion of atrial fibrillation with rapid ventricular rate. 2. Sinus rhythm with PACs. Job ID: [id number] DocumentID: [id number] Dictated Date: 08/20/2017 13:56:51 Child And Adolescent Therapist Date: 08/20/2017 23:07:18 Dictated By: BINTA JONES MD
[2017-08-21] MEDS ORDERED: KCL 20 MEQ TAB (K-DUR) PO SCH (06:00)
[2017-08-21] MEDS ORDERED: MAGNESIUM 1 GM/100 ML IVPB 100 ML IV SCH (06:00)
[2017-08-21] MEDS ORDERED: POTASSIUM CL 10MEQ/50ML IVPB 50 ML IV SCH (06:00)
[2017-08-21] MEDS ORDERED: ASPIRIN E.C. 81 MG (ECOTRIN) TAB PO SCH (09:00)
== END 2017-08-20 14:00 | disposition short-term general hospital (02) | DRG 286 ==
LOC: EDUNIT# 08:36 → ER 08:38 → ICU 10:24
PROVIDERS: ADMIT Internal Medicine; ATTEND Internal Medicine
PROC: 4A023N7 Measurement of Cardiac Sampling and Pressure, Left Heart, Percutaneous Approach (ICD-10-PCS; principal; 2017-08-20)
PROC: B2151ZZ Fluoroscopy of Left Heart using Low Osmolar Contrast (ICD-10-PCS; 2017-08-20)
PROC: B2111ZZ Fluoroscopy of Multiple Coronary Arteries using Low Osmolar Contrast (ICD-10-PCS; 2017-08-20)
DX: I48.0 Paroxysmal atrial fibrillation (principal); I11.0 Hypertensive heart disease with heart failure; I50.31 Acute diastolic (congestive) heart failure; I25.10 Atherosclerotic heart disease of native coronary artery without angina pectoris; I34.0 Nonrheumatic mitral (valve) insufficiency; F05 Delirium due to known physiological condition; E78.00 Pure hypercholesterolemia, unspecified; R13.13 Dysphagia, pharyngeal phase; K21.9 Gastro-esophageal reflux disease without esophagitis; M81.0 Age-related osteoporosis without current pathological fracture; F41.9 Anxiety disorder, unspecified; I25.2 Old myocardial infarction; Z95.1 Presence of aortocoronary bypass graft; Z95.5 Presence of coronary angioplasty implant and graft; Z79.82 Long term (current) use of aspirin; Z79.02 Long term (current) use of antithrombotics/antiplatelets
CPT/HCPCS: 36415; 71010; 71275; 74230; 80048; 80053; 80061; 81000; 82805; 83605; 83735; 83874; 83880; 84100; 84484; 85025; 85379; 85610; 85652; 85730; 87040; 93005; 93041; 93306; 93320; 93325; 93458; 93571; 96361; 96374

== ENCOUNTER → 2017-10-03 | Outpatient (CLI) | payer MEDICARE, OTHER ==
[~2017-10-03] MED LIST changes: +ASPI-983 PO; +ATOR10TA66 PO; +CLOP75TA28 PO; +CRAN500C4 PO; +FENO160T12 PO; +FERR-84 PO; +FURO20TA4 PO; +OMEG-160 PO; +POTA10TA10 PO; +RANI150T11 PO
[2017-10-03 09:18] LABS: BASOPHILS % (AUTO) 0 % (0-10); EOSINOPHILS # (AUTO) 0.1 10^3/uL (0.0-0.3); EOSINOPHILS % (AUTO) 1 % (0-10); HEMATOCRIT 37 % (35-52); HEMOGLOBIN 12.1 G/DL (11.5-16.0); LYMPHOCYTES # (AUTO) 1.5 X 10^3 (1.0-4.0); LYMPHOCYTES % (AUTO) 19 % (12-44); MEAN CORPUSCULAR HEMOGLOBIN 29 PG (25-34); MEAN CORPUSCULAR HGB CONC 32 G/DL (32-36); MEAN CORPUSCULAR VOLUME 90 FL (80-99); MEAN PLATELET VOLUME 11.6 FL (7.4-10.4); MONOCYTES # (AUTO) 0.8 X 10^3 (0.0-1.0); MONOCYTES % (AUTO) 10 % (0-12); NEUTROPHILS # (AUTO) 5.5 X 10^3 (1.8-7.8); NEUTROPHILS % (AUTO) 69 % (42-75); PLATELET COUNT 198 10^3/uL (130-400); RED BLOOD COUNT 4.14 10^6/uL (4.35-5.85); RED CELL DISTRIBUTION WIDTH 14.9 % (10.0-14.5); WHITE BLOOD COUNT 7.9 10^3/uL (4.3-11.0)
[2017-10-03 09:38] LABS: ALBUMIN 3.6 GM/DL (3.2-4.5); BILIRUBIN,TOTAL 0.6 MG/DL (0.1-1.0); CALCIUM 9.2 MG/DL (8.5-10.1); CREATININE SERUM 2.08 MG/DL (0.60-1.30); POTASSIUM 4.1 MMOL/L (3.6-5.0); TOTAL PROTEIN 6.4 GM/DL (6.4-8.2)
== END ==
LOC: HH 07:00
PROVIDERS: ATTEND Internal Medicine
DX: E78.00 Pure hypercholesterolemia, unspecified (principal); E78.1 Pure hyperglyceridemia
CPT/HCPCS: 80053; 85025

== ENCOUNTER 2018-09-18 10:48 | Inpatient (IN) | payer MEDICARE, OTHER ==
[2018-09-18] VITALS (15 sets, daily range): BP systolic 143–178; BP diastolic 70–101
[~2018-09-18] VITALS: Ht 167.6 cm; Wt 69.2 kg
--- NOTE | 2018-09-18 11:21 | ED Chest Pain ---
General Chief Complaint: Chest Pain Stated Complaint: R ARM/WRIST PAIN Source: patient, family, EMS Exam Limitations: no limitations History of Present Illness Date Seen by Provider: Sep 18, 2018 Time Seen by Provider: 11:19 Initial Comments This 82-year-old white female presents with a complaint of right arm and chest pain. Patient related that she had had 3 previous heart attacks. She is under the care of Dr. Hankins. The patient's history reveals that the patient had spent much of the day yesterday doing kimberli work with her right hand. She developed pain in the right wrist last night. This radiated to the right arm and she believes subsequently into the chest. Patient has had no associated shortness of breath , nausea, diaphoresis, headache, stiff neck, or other joint discomfort. Patient has had a history of arthritis but denies a previous episode in which she had joint swelling, redness, and severe pain. Allergies and Home Medications Allergies Coded Allergies: Penicillins (Unverified Allergy, Mild, 04/19/09) Home Medications Aspirin 81 Mg Tablet.dr, 81 MG PO 1200, (Reported) Atorvastatin Calcium 10 Mg Tablet, 5 MG PO HS, (Reported) TAKES 1/2 OF A (10 MG) TABLET Carvedilol 6.25 Mg Tablet, 6.25 MG PO BID, (Reported) Clopidogrel Bisulfate 75 Mg Tablet, 75 MG PO DAILY, (Reported) Cranberry Extract 500 Mg Capsule, 500 MG PO 1200, (Reported) Fenofibrate 160 Mg Tablet, 160 MG PO 1630, (Reported) Ferrous Sulfate 325 Mg Tablet, 325 MG PO 1200, (Reported) Furosemide 20 Mg Tablet, 10 MG PO DAILY, (Reported) TAKES 1/2 OF A (20 MG) TABLET [place]-3/Dha/Epa/Fish Oil 1 Each Capsule, 1,000 MG PO TID, (Reported) Potassium Chloride 10 Meq Tablet.er, 10 MEQ PO 1630, (Reported) Ranitidine HCl 150 Mg Tablet, 150 MG PO BID, (Reported) Patient Home Medication List Home Medication List Reviewed: Yes Review of Systems Review of Systems Constitutional: No chills, No fever EENTM: No Blurred Vision, No Ear Pain Respiratory: Denies Cough Cardiovascular: See HPI, Chest Pain Gastrointestinal: Denies Abdominal Pain, Denies Diarrhea, Denies Nausea Genitourinary: Denies Frequency, Denies Flank Pain Musculoskeletal: No gout; joint pain Skin: change in color, other Psychiatric/Neurological: No Symptoms Reported (there is erythema and swelling over the right wrist.) Endocrine: No Symptoms Reported Hematologic/Lymphatic: No Symptoms Reported Past [id number] Hx Past Med/Social Hx: Reviewed Nursing Past Med/Soc Hx Patient Social History Recent Hopitalizations: No Physical Abuse: No Sexual Abuse: No Mistreated: No Fear: No Immunizations Up To Date Date of Pneumonia Vaccine: Sep 01, 2008 Date of Influenza Vaccine: Jun 01, 2017 Seasonal Allergies Seasonal Allergies: No Past Medical History Surgeries: Yes (cardiac stents) Appendectomy, Hysterectomy Respiratory: No Cardiac: Yes (STENTS X 4, CHF) Coronary Artery Disease, Heart Attack, High Cholesterol, Hypertension Neurological: No Reproductive Disorders: No UTI-Chronic Gastrointestinal: Yes Gastroesophageal Reflux Musculoskeletal: No Endocrine: No Cancer: Yes (BASIL CELL CARCINOMA) Psychosocial: No Integumentary: No Blood Disorders: No Family Medical History Heart Disease Physical Exam Vital Signs Vital Signs - First Documented 09/18/18 10:55 Temp 98.3 Pulse 57 Resp 12 B/P (MAP) 177/79 (111) Pulse Ox 97 O2 Delivery Room Air Capillary Refill : Less Than 3 Seconds Height, Weight, BMI Height: 5'5.00" Weight: 145lbs. 12.8oz. [id number]; 25.3 BMI Method:Stated General Appearance: No Apparent Distress, Moderate Distress HEENT: Normal ENT Inspection Neck: Normal Inspection Respiratory: Lungs Clear, Normal Breath Sounds Cardiovascular: Regular Rate, Rhythm, No Murmur, Normal Peripheral Pulses Gastrointestinal: Normal Bowel Sounds, Non Tender, Soft Extremity: Swelling, Other (there is marked tenderness to palpation over the dorsum of the right wrist which is erythematous and swollen.) Neurologic/Psychiatric: Alert, Oriented x3, No Motor/Sensory Deficits Skin: Normal Color, Warm/Dry Progress/Results/Core Measures Results/Orders Lab Results Laboratory Tests Test 09/18/18 10:55 Range/Units White Blood Count 11.8 H 4.3-11.0 10^3/uL Red Blood Count 4.30 L 4.35-5.85 10^6/uL Hemoglobin 12.8 11.5-16.0 G/DL Hematocrit 39 35-52 % Mean Corpuscular Volume 91 80-99 FL Mean Corpuscular Hemoglobin 30 25-34 PG Mean Corpuscular Hemoglobin Concent 33 32-36 G/DL Red Cell Distribution Width 13.1 10.0-14.5 % Platelet Count 212 130-400 10^3/uL Mean Platelet Volume 11.0 H 7.4-10.4 FL Neutrophils (%) (Auto) 81 H 42-75 % Lymphocytes (%) (Auto) 8 L 12-44 % Monocytes (%) (Auto) 11 0-12 % Eosinophils (%) (Auto) 1 0-10 % Basophils (%) (Auto) 0 0-10 % Neutrophils # (Auto) 9.5 H 1.8-7.8 X 10^3 Lymphocytes # (Auto) 0.9 L 1.0-4.0 X 10^3 Monocytes # (Auto) 1.3 H 0.0-1.0 X 10^3 Eosinophils # (Auto) 0.1 0.0-0.3 10^3/uL Basophils # (Auto) 0.0 0.0-0.1 10^3/uL Neutrophils % (Manual) 74 % Lymphocytes % (Manual) 15 % Monocytes % (Manual) 10 % Eosinophils % (Manual) 1 % Basophils % (Manual) 0 % Band Neutrophils 0 % Blood Morphology Comment NORMAL Erythrocyte Sedimentation Rate 13 0-30 MM/HR Sodium Level 140 135-145 MMOL/L Potassium Level 3.6-5.0 MMOL/L Chloride Level 106 98-107 MMOL/L Carbon Dioxide Level 21 21-32 MMOL/L Anion Gap 13 5-14 MMOL/L Blood Urea Nitrogen 39 H 7-18 MG/DL Creatinine 1.26 0.60-1.30 MG/DL Estimat Glomerular Filtration Rate 41 BUN/Creatinine Ratio 31 Glucose Level 126 H 70-105 MG/DL Uric Acid 6.0 2.6-7.2 MG/DL Calcium Level 9.3 8.5-10.1 MG/DL Corrected Calcium 9.4 8.5-10.1 MG/DL Total Bilirubin 0.4 0.1-1.0 MG/DL Aspartate Amino Transf (AST/SGOT) 35 H 5-34 U/L Alanine Aminotransferase (ALT/SGPT) 17 0-55 U/L Alkaline Phosphatase 76 40-136 U/L Troponin I 1.188 *H <0.028 NG/ML Total Protein 7.0 6.4-8.2 GM/DL Albumin 3.9 3.2-4.5 GM/DL My Orders Orders - JAZMINE MURGUIA MD Troponin I (09/18/18 11:15) Uric Acid (09/18/18 11:15) Erythrocyte Sedimentation Rate (09/18/18 11:15) Cbc With Automated Diff (09/18/18 11:15) Comprehensive Metabolic Panel (09/18/18 11:15) Wrist, Right, 3 Views Or More (09/18/18 11:15) Chest Pa/Lat (2 View) (09/18/18 11:15) Morphine Injection (Morphine Injection (09/18/18 11:30) Manual Differential (09/18/18 10:55) Enoxaparin Injection (Lovenox Injection) (09/18/18 13:00) Ticagrelor Tablet (Brilinta Tablet) (09/18/18 13:00) Hydromorphone Injection (Dilaudid Inject (09/18/18 13:00) Medications Given in ED Current Medications Medications Dose Ordered Sig/Aman Route Start Time Stop Time Status Last Admin Dose Admin Morphine Sulfate 5 mg ONCE ONCE IVP 09/18/18 11:30 09/18/18 11:31 DC 09/18/18 11:30 5 MG Vital Signs/I&O 09/18/18 10:55 Temp 98.3 Pulse 57 Resp 12 B/P (MAP) 177/79 (111) Pulse Ox 97 O2 Delivery Room Air Progress Progress Note : Time: 13:24 Progress Note The patient's EKG demonstrating normal sinus rhythm. However the patient had an elevated troponin. presented to evaluate the patient. Patient was not felt to be having an acute myocardial infarction as her chest pain had abated during her evaluation in the emergency department. The patient received IV narcotic pain medication for relief of the right wrist pain which was essentially the most important part of the patient's presentation. The patient was admitted to Dr. Laguerre's service in anticipation of a cath tomorrow. The patient received Lovenox and Brilenta. Departure Communication (Admissions) Time/Spoke to Admitting Phy: 13:28 Dr. Laguerre. Impression Primary Impression: Chest pain Qualified Codes: R07.9 - Chest pain, unspecified Additional Impression: Wrist pain Qualified Codes: M25.531 - Pain in right wrist Disposition: 09 ADMITTED INPATIENT Condition: Improved Admissions Decision to Admit Reason: Admit from ER (General) Decision to Admit/Date: Sep 18, 2018 Time/Decision to Admit Time: 13:29 Departure-Patient Inst. Referrals: GORDO OVERTON DO (PCP/Family) Primary Care Physician JAZMINE MURGUIA MD Sep 18, 2018 11:21
[2018-09-18 11:22] LABS: BASOPHILS % (AUTO) 0 % (0-10); EOSINOPHILS # (AUTO) 0.1 10^3/uL (0.0-0.3); EOSINOPHILS % (AUTO) 1 % (0-10); HEMATOCRIT 39 % (35-52); HEMOGLOBIN 12.8 G/DL (11.5-16.0); LYMPHOCYTES # (AUTO) 0.9 X 10^3 (1.0-4.0); LYMPHOCYTES % (AUTO) 8 % (12-44); MEAN CORPUSCULAR HEMOGLOBIN 30 PG (25-34); MEAN CORPUSCULAR HGB CONC 33 G/DL (32-36); MEAN CORPUSCULAR VOLUME 91 FL (80-99); MONOCYTES # (AUTO) 1.3 X 10^3 (0.0-1.0); MONOCYTES % (AUTO) 11 % (0-12); NEUTROPHILS # (AUTO) 9.5 X 10^3 (1.8-7.8); NEUTROPHILS % (AUTO) 81 % (42-75); PLATELET COUNT 212 10^3/uL (130-400); RED CELL DISTRIBUTION WIDTH 13.1 % (10.0-14.5); WHITE BLOOD COUNT 11.8 10^3/uL (4.3-11.0)
[2018-09-18] MEDS ORDERED: morphine INJ 10 MG/ML 1ML (SYR OR VIAL) IVP ONE (11:30)
[2018-09-18 11:34] LABS: ALBUMIN 3.9 GM/DL (3.2-4.5); BILIRUBIN,TOTAL 0.4 MG/DL (0.1-1.0); CALCIUM 9.3 MG/DL (8.5-10.1); CREATININE SERUM 1.26 MG/DL (0.60-1.30)
[2018-09-18 11:47] LABS: ERYTHROCYTE SEDIMENTATION RATE 13 MM/HR (0-30)
[2018-09-18 11:50] LABS: BAND NEUTROPHILS 0 %; BASOPHILS % (MANUAL) 0 %; EOSINOPHILS % (MANUAL) 1 %; LYMPHOCYTES % (MANUAL) 15 %; MONOCYTES % (MANUAL) 10 %; NEUTROPHILS % (MANUAL) 74 %; RBC MORPH NORMAL
[2018-09-18] MEDS ORDERED: TICAGRELOR 90 MG TABLET (BRILINTA) PO ONE (13:00)
[2018-09-18] MEDS ORDERED: ENOXAPARIN 80 MG/0.8 ML (LOVENOX) SYR SC ONE (13:00)
[2018-09-18] MEDS ORDERED: HYDROmorphone 2 MG/ML VIAL (DILAUDID) IV ONE (13:00)
--- NOTE | 2018-09-18 13:21 | Consultation-Cardiology ---
HPI-Cardiology Cardiology Consultation: Date of Consultation 09/18/18 Date of Admission Attending Physician Admitting Physician Giovana Hernandez DO Consulting Physician Jose LAGUERRE MD HPI: Time Seen by a Provider: 13:21 Chief Complaint: Chest pain This is a 82-year-old lady who presents with a complaint of chest pain and right wrist pain. The patient has previous history of [place] and stents in the LAD. She is a patient of Dr. Medina. She also has history of paroxysmal atrial fibrillation. She presents with significant pain in the right wrist for 24 hours with swelling. She also complained of chest pain which is substernal, moderate intensity, no significant radiation, no associated symptoms of shortness of breath, syncope or near syncope. No exacerbating or relieving factors. She improved significantly with ER treatment. Review of Systems-Cardiology Review of Systems Constitutional: As described under HPI; No As described under HPI, No no symptoms reported, No chills, No fever, No lightheadedness Eyes: No As described under HPI, No no symptoms reported, No blindness, No blurred vision, No contact lenses, No drainage, No decreased acuity, No foreign body sensation, No pain, No vision change Ears/Nose/Throat: No As described under HPI, No no symptoms reported, No chronic hearing loss, No ear discharge, No ear pain, No nasal drainage, No ulcerations Respiratory: No no symptoms reported; As described under HPI; No As described under HPI, No cough, No orthopnea, No shortness of breath, No SOB with excertion Cardiovascular: No no symptoms reported; As described under HPI; No As described under HPI; chest pain; No edema, No irregular heart rate, No lightheadedness, No palpitations Gastrointestinal: No no symptoms reported, No As described under HPI, No abdomen distended, No abdominal pain, No blood streaked bowels, No constipation , No diarrhea, No nausea, No vomiting, No stool coloration changes Genitourinary: No As described under HPI, No burning, No dysuria, No discharge , No frequency, No flank pain, No hematuria, No urgency : Yes : No Musculoskeletal: No no symptoms reported, No As describe under HPI, No back pain, No gout; joint pain; No joint swelling, No muscle pain, No muscle stiffness, No neck pain, No other Skin: No no symptoms reported, No As described under HPI, No change in color, No change in hair/nails, No dryness, No lesions, No lumps, No rash, No other, No skin related problems, No ulcerations, No rash on exposed areas, No ulcerations on exposed areas Psychiatric/Neurological: No no symptoms reported, No As described under HPI, No anxiety, No depression, No emotional problems, No headache, No numbness, No pre-existing deficit, No seizure, No tingling, No tremors, No weakness, No other , No focal weakness, No syncope Hematologic: No no symptoms reported, No As described under HPI, No anemia, No blood clots, No easy bleeding, No easy bruising, No swollen glands, No other, No bleeding abnormalities FRY-Azdvca-Eybmez Hx Patient Social History Alcohol Use: Denies Use Recreational Drug Use: No Smoking Status: Never a Smoker Recent Foreign Travel: No Recent Infectious Disease Expo: No Hospitalization with Isolation: Denies Immunizations Up To Date Date of Pneumonia Vaccine: Sep 01, 2008 Date of Influenza Vaccine: Jun 01, 2017 Past Medical History PMH As described under Assessment. Allergies and Home Medications Allergies Coded Allergies: Penicillins (Unverified Allergy, Mild, 04/19/09) Home Medications Aspirin 81 Mg Tablet.dr, 81 MG PO HS, (Reported) Cholecalciferol (Vitamin D3) 1,000 Unit Capsule, 1,000 UNIT PO 1200, (Reported) Cranberry Extract 500 Mg Tablet, 500 MG PO 1200, (Reported) Furosemide 20 Mg Tablet, 20 MG PO DAILY, (Reported) Lisinopril 5 Mg Tablet, 5 MG PO DAILY, (Reported) Metoprolol Succinate 25 Mg Tab.er.24h, 25 MG PO HS, (Reported) [place]-3/Dha/Epa/Fish Oil 1 Each Capsule, 2 CAP PO BID, (Reported) Potassium Chloride 10 Meq Tablet.er, 10 MEQ PO DAILY, (Reported) Rivaroxaban 15 Mg Tablet, 15 MG PO 1800, (Reported) Rosuvastatin Calcium 5 Mg Tablet, 5 MG PO HS, (Reported) Patient Home Medication List Home Medication List Reviewed: Yes Physical Exam-Cardiology Physical Exam Vital Signs/I&O 09/19/18 09/19/18 09/19/18 09/19/18 00:00 00:00 00:00 01:00 Temp 98.1 Pulse 79 95 Resp 18 B/P (MAP) 150/76 (100) Pulse Ox 96 95 O2 Delivery Room Air Room Air Nasal Cannula O2 Flow Rate 2.00 09/19/18 09/19/18 09/19/18 09/19/18 04:00 04:00 07:00 07:15 Pulse 74 75 72 Resp 23 16 B/P (MAP) 119/64 (82) 120/61 (80) Pulse Ox 96 95 O2 Delivery Room Air Nasal Cannula Nasal Cannula O2 Flow Rate 2.00 2.00 09/19/18 09/19/18 09/19/18 07:55 09:00 10:00 Temp 98.4 Pulse 68 72 70 Resp 19 14 9 B/P (MAP) 120/61 (80) 112/58 (76) 133/64 (87) Pulse Ox 97 94 97 O2 Delivery Nasal Cannula Nasal Cannula Nasal Cannula O2 Flow Rate 2.00 2.00 2.00 09/19/18 00:00 Intake Total 170 ml Output Total 1000 ml Balance -830 ml Capillary Refill : Less Than 3 Seconds Constitutional: appears stated age, AAO x 3; No apparent distress; well- developed, well-nourished HEENT: PERRL; No normal ENT inspection, No TMs normal, No pharynx normal, No scleral icterus (R), No scleral icterus (L), No pale conjunctivae (R), No pale conjunctivae (L), No photophobia, No TM abnormal (R), No TM abnormal (L), No pharyngeal erythema, No tonsillar exudate, No other, No discharge, No EOMI; hearing is well preserved; No hard of hearing; oral hygience is good; No ulceration, No xanthelasmas are seen Neck: No non-tender, No full range of motion, No supple, No normal inspection, No carotid bruit, No limited range of motion, No lymphadenopathy (R), No lymphadenopathy (L), No tender lateral, No tender midline, No thyromegaly, No other; carotid pulses are 2 + bilaterally; No with good upstrokes Respiratory: No accessory muscle use, No respiratory distress, No chest tender , No chest expansion is symmetric; chest is bilaterally symmetric; No lungs clear to percussion; lungs clear to auscultation; No crackles, No rhonchi, No rales, No stridor, No wheezing, No pleural rub, No other Cardiovascular: regular rate-rhythm; No irregularly irregular, No extra beats, No parasternal heave is noted, No JVD, No edema, No bradycardia, No tachycardia , No point of maximal impulse, No cardiac thrills are palpable; S1 and S2; No gallop/S3, No gallop/S4, No diastolic murmur; systolic murmur; No friction rub, No click, No other Gastrointestinal: No tender, No soft, No round, No distended, No pulsatile mass , No organomegaly, No guarding, No rebound, No tenderness, No hernia, No mass, No audible bowel sounds, No abnormal bowel sounds, No abdominal bruits, No spleenomegaly, No other Rectal: deferred Extremities: No normal range of motion, No non-tender, No normal inspection, No pedal edema, No calf tenderness, No normal capillary refill, No pelvis stable , No calf tenderness; inflammation; No pedal edema, No slow capillary refill; swelling; No other, No abrasion, No clubbing, No cyanosis, No ecchymosis, No laceration, No no lower extremity edema bilateral, No significant edema, No tenderness, No wound Neurologic/Psychiatric: no motor/sensory deficits, alert, normal mood/affect, oriented x 3, power is 5/5 both on sides Skin: No normal color, No warm/dry, No cyanosis, No cool, No diaphoresis, No damp, No ecchymosis, No jaundice, No mottled, No pallor, No rash, No tattoos/ piercings, No ulcerations, No rash on exposed areas, No ulcerations on exposed areas, No other Data Review Labs Laboratory Tests 09/18/18 17:03: Troponin I 2.590*H 09/18/18 23:03: Troponin I 3.024*H 09/19/18 03:07: White Blood Count 13.7H, Red Blood Count 4.30L, Hemoglobin 12.5, Hematocrit 39, Mean Corpuscular Volume 91, Mean Corpuscular Hemoglobin 29, Mean Corpuscular Hemoglobin Concent 32, Red Cell Distribution Width 13.0, Platelet Count 176, Mean Platelet Volume 10.9H, Neutrophils (%) (Auto) 82H, Lymphocytes (%) (Auto) 5L, Monocytes (%) (Auto) 14H, Eosinophils (%) (Auto) 0, Basophils (%) (Auto) 0, Neutrophils # (Auto) 11.2H, Lymphocytes # (Auto) 0.6L, Monocytes # (Auto) 1.9H, Eosinophils # (Auto) 0.0, Basophils # (Auto) 0.0, Erythrocyte Sedimentation Rate 46H, Sodium Level 139, Potassium Level 3.8, Chloride Level 105, Carbon Dioxide Level 23, Anion Gap 11, Blood Urea Nitrogen 31H, Creatinine 1.21, Estimat Glomerular Filtration Rate 43, BUN/Creatinine Ratio 26, Glucose Level 137H, Calcium Level 9.2, Corrected Calcium 9.4, Total Bilirubin 0.7, Aspartate Amino Transf (AST/SGOT) 31, Alanine Aminotransferase (ALT/SGPT) 13, Alkaline Phosphatase 71, C-Reactive Protein High Sensitivity 9.43H, Total Protein 6.7, Albumin 3.7 ECG Impression ECG Initial ECG Rhythm: Normal Sinus Initial ECG Impression: Normal A/P-Cardiology Assessment/Admission Diagnosis Non-STEMI, Inflammation right wrist, Hyperlipidemia, Hypertension, Paroxysmal atrial fibrillation Plan Non-STEMI, continue aspirin. We will load Brilinta 180 mg. Will give Lovenox. No chest pain when I saw the patient. Plan for coronary angiography tomorrow , hopefully, after resolution of the inflammatory process of the right wrist. Echocardiogram. Coronary angiography was discussed at length with the patient and daughter. All risks and complication were explained in detail. Informed consent was taken. Patient accepted all risks and wanted to proceed with the procedure. Inflammation right wrist, we'll defer to the primary team. Hyperlipidemia, continue statin therapy. Hypertension, continue outpatient medical therapy. Paroxysmal atrial fibrillation, on Xarelto. Hold for possible coronary angiography tomorrow. Will restart tomorrow evening. Thank you for your consultation. Please call me if you have any questions. Delfina Laguerre MD, FACP, FACC, FSCAI, FHRS, CCDS Interventional Cardiology Cardiac Electrophysiology Vascular Medicine and Endovascular Interventions Jose LAGUERRE MD Sep 18, 2018 13:21
--- NOTE | 2018-09-18 13:25 | NUR ---
Patient's oxygen saturation was 88%. Pt was placed on 2 liters and at 89%, so patient was placed on 4 liters.
--- OUTSIDE RECORDS SUMMARY | 2018-09-18 13:26 | XMS REPORT | Clinical Summary ---
Author Author [facility] Organization [facility] Address Unknown Phone Unavailable Care Team Providers Care Home Companion Name Role Phone Giovana Hernandez DO PCP Source Comments Some departments are not documenting in the electronic medical record. If you do not see the information that you expected, contact Release of Information in the Health Information Management department at [phone] for further assistance in locating additional records.[facility] Allergies Comments Active Allergy Reactions Severity Noted Date Penicillins RASH 01/12/2014 Medications End Date Status Medication Sig Dispensed Refills Start Date Active ranitidine(+) (ZANTAC) Take 150 mg 0 150 mg tablet by mouth twice daily. Active potassium chloride SR Take 10 mEq 0 (K-DUR) 10 mEq tablet by mouth daily. Active [place]-3 Fatty Take 1 Cap by 0 Acids-Vitamin E (FISH mouth three OIL) 1,000 mg cap times daily. Active aspirin EC 81 mg tablet Take 81 mg by 0 mouth daily. Active ASCORBIC ACID/VITAMIN E Take 500 mg 0 (CRANBERRY CONCENTRATE by mouth. PO) Active ferrous sulfate (FEOSOL, Take 325 mg 0 FEROSUL) 325 mg (65 mg by mouth iron) tablet daily. Take on an empty stomach at least 1 hour before or 2 hours after food. Active fenofibrate(+) (TRIGLIDE) Take 160 mg 0 160 mg tablet by mouth daily. Take with food. Active atorvastatin (LIPITOR) 10 Take 1 tablet 90 tablet 3 mg tablet by mouth 7 daily. Active lisinopril (PRINIVIL; Take 1 tablet 90 tablet 3 ZESTRIL) 5 mg tablet by mouth 7 daily. Active metoprolol XL (TOPROL XL) Take 1 tablet 90 tablet 3 50 mg extended release by mouth 7 tablet daily. Active rivaroxaban (XARELTO) 15 Take 1 tablet 30 tablet 3 mg tablet by mouth 7 daily with dinner. Take with food. Active furosemide (LASIX) 40 mg Take 1 tablet 90 tablet 3 tablet by mouth 7 daily. Active amiodarone (CORDARONE) Take 2 tabs 90 tablet 3 200 mg tablet twice daily 7 for 7 days, then take 2 tabs daily for 7 days, then take 1 tab daily. Take with food. Active nitroglycerin (NITROSTAT) Place 1 25 tablet 3 0.4 mg tablet tablet under 7 tongue every 5 minutes as needed for Chest Pain. Max of 3 tablets, call 911. Active Problems Problem Noted Date Gait instability 08/22/2017 Mitral valve regurgitation 08/21/2017 Persistent atrial fibrillation 08/20/2017 Acute on chronic diastolic (congestive) heart failure 08/20/2017 CAD (coronary artery disease) 01/12/2014 Overview: 05/03/2009 - LHC: 2.25 x 32 mm Atom Taxus up to 2.9 in Mid LAD and 3.25 x 12 mm Taxus up to 3.8 to prox LAD. ([facility]) 02/19/2010 - LHC: 2.5 x 15 mm [place], 2.5 x 20 mm Promus and 2.5 x 18 mm Promus to mid LAD ([facility]) 09/20/2013 - LHC: No intervention. [email or web address] 11/08/2013 - Cardiac Catheterization: LVEF ~ 60%. LA size - 4.9 cm. Mild hypertrophy noted at the base of the septum giving the septum a sigmoid shape. Systolic function appeared to be normal. Advanced diastolic dysfunction is suggested by doppler. LA dilatation. Moderate to moderately severe MR and Mild TR> PAP ~ 35 mmHg. [facility] PVC's (premature ventricular contractions) 01/12/2014 Overview: With bigeminy. Intolerant to Mexitil and Toprol due to significant nausea. HTN (hypertension) 01/12/2014 HLD (hyperlipidemia) 01/12/2014 Carotid artery stenosis 01/12/2014 Overview: 01/07/2012 - Carotid Ultrasound: Mild 1 -39% stenosis bilaterally. ([facility]) Social History Date Tobacco Use Types Packs/Day Years Used Former Smoker Smokeless Tobacco: Never Used Alcohol Use Drinks/Week oz/Week Comments Yes Very Occasionally (1-2 drinks yearly) Sex Assigned at Date Recorded Not on file Industry Job Start Date Occupation Not on file Not on file Not on file Travel End Travel History Travel Start No recent travel history available. Last Filed Vital Signs Time Taken Vital Sign Reading 08/22/2017 4:15 PM FIELD RECORDER Blood Pressure 140/79 08/22/2017 3:45 PM FIELD RECORDER Pulse 68 08/22/2017 4:15 PM FIELD RECORDER Temperature 36.8 C (98.2 F) - Respiratory Rate - 08/22/2017 3:48 PM FIELD RECORDER Oxygen Saturation 94% - Inhaled Oxygen - Concentration 08/22/2017 3:34 PM FIELD RECORDER Weight 66.7 kg (147 lb) 08/22/2017 3:34 PM FIELD RECORDER Height 165.1 cm (5' 5") 08/22/2017 3:34 PM FIELD RECORDER Body Mass Index 24.46 Plan of Treatment Health Maintenance Due Date Last Done Comments PHYSICAL (COMPREHENSIVE) 12/01/1942 EXAM DTAP/TDAP VACCINES (1 - 12/01/1953 Tdap) SHINGLES RECOMBINANT 12/01/1985 VACCINE (1 of 2) OSTEOPOROSIS 12/01/2000 SCREENING/MONITORING PNEUMONIA (PCV13/PPSV23) 12/01/2000 VACCINES (1 of 2 - PCV13) INFLUENZA VACCINE 04/01/2018 Results Not on filefrom Last 3 Months Insurance Payer Benefit Subscriber ID Type Phone Address Plan / Group MEDICARE MEDICARE xxxxxxxxxx Medicare PART A AND B STATE FARM INS STATE [employer]ARM xxxxxxxxxxxx PPO INS Advance Directives Patient has advance care planning documents, and code status on file. For more information, please contact: [facility] [address] [place] [address] Date Inactivated Comments Code Status Date Activated 08/23/2017 7:56 AM Full Code 08/20/2017 5:40 PM Provider has discussed Code Status Yes w/Patient or Family? 08/20/2017 5:40 PM Full Code 08/20/2017 4:30 PM Provider has discussed Code Status No, more discussion w/Patient or Family? needed
--- OUTSIDE RECORDS SUMMARY | 2018-09-18 13:30 | XMS REPORT | Continuity of Care Document ---
Author Author [facility] Organization [facility] Address Unknown Phone Unavailable Allergies Active Description Code Type Severity Reaction Onset Reported/Identified Relationship to Patient Clinical Status Yes Penicillins [id number] Drug Allergy Mild N/A 04/19/2009 Medications There is no data. Problems Date Dx Coded Attending Type Code Diagnosis Diagnosed By 12/25/2011 Ot 272.4 HYPERLIPIDEMIA NEC/NOS 12/25/2011 Ot 401.9 HYPERTENSION NOS 12/25/2011 Ot 414.01 CORONARY ATHEROSCLEROSIS OF [place] CORON 12/25/2011 Ot 427.69 PREMATURE BEATS NEC 12/25/2011 Ot 785.1 PALPITATIONS 12/25/2011 Ot 786.09 RESPIRATORY ABNORM NEC 12/25/2011 Ot 786.50 CHEST PAIN NOS 12/25/2011 Ot V45.82 PERCUTANEOUS TRANSLUM CORON ANGIOPLASTY 12/25/2011 Ot V58.69 OTH MED,LT, CURRENT USE 09/20/2013 VERÓNICA MENDEZ MD Ot 272.4 HYPERLIPIDEMIA NEC/NOS 09/20/2013 VERÓNICA MENDEZ MD Ot 401.9 HYPERTENSION NOS 09/20/2013 VERÓNICA MENDEZ MD Ot 412 OLD MYOCARDIAL INFARCT 09/20/2013 VERÓNICA MENDEZ MD Ot 414.01 CORONARY ATHEROSCLEROSIS OF [place] CORON 09/20/2013 VERÓNICA MENDEZ MD Ot 427.69 [...] MD R Ot 414.01 CORONARY ATHEROSCLEROSIS OF [place] CORON 11/09/2013 SHANNA HUNG MD R Ot [...] Ot H53.9 UNSPECIFIED VISUAL DISTURBANCE 04/17/2016 VERÓNICA MENDEZ MD Ot I65.23 OCCLUSION AND [...] DOMINIQUE Ot I25.10 ATHSCL HEART DISEASE OF [place] CORONARY 04/19/2016 KHRIS DOMINIQUE Ot 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 05/08/2016 YANIQUE FRENCH, SCOUT Owens Ot I80.01 PHLEBITIS AND THOMBOPHLB OF SUPERFIC VES 05/08/2016 SCOUT CHANEL MD, Ot 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 05/08/2016 SCOUT CHANEL MD, Ot Z79.82 MCC (CURRENT) USE OF ASPIRIN 05/08/2016 SCOUT CHANEL MD, Ot Z79.899 OTHER ICT SYSTEMS TEST ENGINEER (CURRENT) DRUG THERAPY 05/08/2016 SCOUT CHANEL MD, Ot Z95.5 PRESENCE OF CORONARY ANGIOPLASTY IMPLANT 05/10/2016 SCOUT CHANEL MD, Ot I80.01 PHLEBITIS AND THOMBOPHLB OF [facility] 05/10/2016 SCOUT CHANEL MD, Ot 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 05/10/2016 SCOUT CHANEL MD, Ot Z79.82 MCC (CURRENT) USE OF ASPIRIN 05/10/2016 SCOUT CHANEL MD, Ot Z79.899 OTHER ICT SYSTEMS TEST ENGINEER (CURRENT) DRUG THERAPY 05/10/2016 SCOUT CHANEL MD, Ot Z95.5 PRESENCE OF CORONARY ANGIOPLASTY IMPLANT 05/10/2016 KHRIS DOMINIQUE Ot E78.2 MIXED HYPERLIPIDEMIA 05/10/2016 KHRIS DOMINIQUE Ot I10 ESSENTIAL (PRIMARY) HYPERTENSION 05/10/2016 KHRIS DOMINIQUE Ot I25.10 ATHSCL HEART DISEASE OF [place] CORONARY 05/10/2016 KHRIS DOMINIQUE Ot 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 05/10/2016 VERÓNICA MENDEZ MD Ot H53.9 UNSPECIFIED VISUAL DISTURBANCE 05/10/2016 VERNÓICA MENDEZ MD Ot I65.23 OCCLUSION AND STENOSIS [...] DOMINIQUE Ot I25.10 ATHSCL HEART DISEASE OF [place] CORONARY 05/15/2016 KHRIS DOMINIQUE Ot 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 09/10/2016 SCOUT CHANEL MD, Ot S93.402A SPRAIN OF UNSPECIFIED LIGAMENT OF LEFT A 09/10/2016 SCOUT CHANEL MD, Ot S99.912A UNSPECIFIED INJURY OF LEFT ANKLE, INITIA 09/10/2016 SCOUT CHANEL MD, Ot X58.XXXA EXPOSURE TO OTHER SPECIFIED FACTORS, INI 09/10/2016 SCOUT CHANEL MD, Ot Y92.[address] IN [facility] NON-INSTITUT (PRIVATE 09/10/2016 SCOUT CHANEL MD, Ot Y99.8 OTHER EXTERNAL CAUSE STATUS 09/10/2016 SCOUT CHANEL MD, Ot Z79.82 ICT SYSTEMS TEST ENGINEER (CURRENT) USE OF ASPIRIN 09/10/2016 SCOUT CHANEL MD, Ot Z79.899 OTHER ICT SYSTEMS TEST ENGINEER (CURRENT) DRUG THERAPY 09/10/2016 Ot 733.90 BONE [...] AND STENOSIS OF BILATERAL ROSALES 09/10/2016 VERÓNICA EMNDEZ MD Ot Z86.73 PRSNL HX OF TIA (TIA), AND CEREB INFRC W 09/10/2016 KHRIS DOMINIQUE Ot E78.2 MIXED HYPERLIPIDEMIA 09/10/2016 KHRIS DOMINIQUE Ot I10 ESSENTIAL (PRIMARY) HYPERTENSION 09/10/2016 KHRIS DOMINIQUE Ot I25.10 ATHSCL HEART DISEASE OF [place] CORONARY 09/10/2016 KHRIS DOMINIQUE Ot 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 09/11/2016 SCOUT CHANEL MD, Ot S93.402A SPRAIN OF UNSPECIFIED LIGAMENT OF LEFT A 09/11/2016 SCOUT CHANEL MD, Ot S99.912A UNSPECIFIED INJURY OF LEFT ANKLE, INITIA 09/11/2016 SCOUT CHANEL MD Ot X58.XXXA EXPOSURE TO OTHER SPECIFIED FACTORS, INI 09/11/2016 SCOUT CHANEL MD Ot Y92.[address] [facility] [address] IN [facility] NON-INSTITUT (PRIVATE 09/11/2016 SCOUT CHANEL MD Ot Y99.8 OTHER EXTERNAL CAUSE STATUS 09/11/2016 SCOUT CHANEL MD Ot Z79.82 MCC (CURRENT) USE OF ASPIRIN 09/11/2016 SCOUT CHANEL MD Ot Z79.899 OTHER MCC (CURRENT) DRUG THERAPY 09/12/2016 SCOUT CHANEL MD, Ot S93.402A SPRAIN OF UNSPECIFIED LIGAMENT OF LEFT A 09/12/2016 SCOUT CHANEL MD, Ot S99.912A UNSPECIFIED INJURY OF LEFT ANKLE, INITIA 09/12/2016 SCOUT CHANEL MD Ot X58.XXXA EXPOSURE TO OTHER SPECIFIED FACTORS, INI 09/12/2016 SCOUT CHANEL MD Ot Y92.[address] IN [facility] NON-INSTITUT (PRIVATE 09/12/2016 SCOUT CHANEL MD Ot Y99.8 OTHER EXTERNAL CAUSE STATUS 09/12/2016 SCOUT CHANEL MD Ot Z79.82 MCC (CURRENT) USE OF ASPIRIN 09/12/2016 SCOUT CHANEL MD Ot Z79.899 OTHER ICT SYSTEMS TEST ENGINEER (CURRENT) DRUG THERAPY 08/20/2017 BONITA COLEMAN MD Ot E78.00 PURE HYPERCHOLESTEROLEMIA, UNSPECIFIED 08/20/2017 BONITA COLEMAN MD Ot F41.9 ANXIETY DISORDER, UNSPECIFIED 08/20/2017 BONITA COLEMAN MD Ot I11.0 HYPERTENSIVE HEART DISEASE WITH HEART FA 08/20/2017 BONITA COLEMAN MD Ot I25.10 ATHSCL HEART DISEASE OF [place] CORONARY 08/20/2017 BONITA COLEMAN MD Ot I25.2 OLD MYOCARDIAL INFARCTION 08/20/2017 BONITA COLEMAN MD Ot I34.0 NONRHEUMATIC MITRAL (VALVE) INSUFFICIENC 08/20/2017 BONITA COLEMAN MD Ot I48.0 PAROXYSMAL ATRIAL FIBRILLATION 08/20/2017 BONITA COLEMAN MD Ot I50.31 ACUTE DIASTOLIC (CONGESTIVE) HEART FAILU 08/20/2017 BONITA COLEMAN MD Ot K21.9 GASTRO-ESOPHAGEAL REFLUX DISEASE WITHOUT 08/20/2017 BONITA COLEMAN MD Ot M81.0 AGE-RELATED OSTEOPOROSIS W/O CURRENT PAT 08/20/2017 BONITA COLEMAN MD Ot R13.13 DYSPHAGIA, PHARYNGEAL PHASE 08/20/2017 BONITA COLEMAN MD Ot Z79.02 MCC (CURRENT) USE OF ANTITHROMBOTI 08/20/2017 BONITA COLEMAN MD Ot Z79.82 ICT SYSTEMS TEST ENGINEER (CURRENT) USE OF ASPIRIN 08/20/2017 BONITA COLEMAN MD Ot Z95.1 PRESENCE OF AORTOCORONARY BYPASS GRAFT 08/20/2017 BONITA COLEMAN MD Ot Z95.5 PRESENCE OF CORONARY ANGIOPLASTY IMPLANT 08/20/2017 BONITA COLEMAN MD Ot E78.00 PURE HYPERCHOLESTEROLEMIA, UNSPECIFIED 08/20/2017 BONITA COLEMAN MD Ot F41.9 ANXIETY DISORDER, UNSPECIFIED 08/20/2017 BONITA COLEMAN MD Ot I11.0 HYPERTENSIVE HEART DISEASE WITH HEART FA 08/20/2017 BONITA COLEMAN MD Ot I25.10 ATHSCL HEART DISEASE OF [place] CORONARY 08/20/2017 BONITA COLEMAN MD Ot I25.2 OLD MYOCARDIAL INFARCTION 08/20/2017 BONITA COLEMAN MD Ot I34.0 NONRHEUMATIC MITRAL (VALVE) INSUFFICIENC 08/20/2017 BONITA COLEMAN MD Ot I48.0 PAROXYSMAL ATRIAL FIBRILLATION 08/20/2017 BONITA COLEMAN MD Ot I50.31 ACUTE DIASTOLIC (CONGESTIVE) HEART FAILU 08/20/2017 BONITA COLEMAN MD Ot K21.9 GASTRO-ESOPHAGEAL REFLUX DISEASE WITHOUT 08/20/2017 BONITA COLEMAN MD Ot M81.0 AGE-RELATED OSTEOPOROSIS W/O CURRENT PAT 08/20/2017 BONITA COLEMAN MD Ot R13.13 DYSPHAGIA, PHARYNGEAL PHASE 08/20/2017 BONITA COLEMAN MD Ot Z79.02 MCC (CURRENT) USE OF ANTITHROMBOTI 08/20/2017 BONITA COLEMAN MD Ot Z79.82 ICT SYSTEMS TEST ENGINEER (CURRENT) USE OF ASPIRIN 08/20/2017 BONITA COLEMAN MD Ot Z95.1 PRESENCE OF AORTOCORONARY BYPASS GRAFT 08/20/2017 BONITA COLEMAN MD Ot Z95.5 PRESENCE OF CORONARY ANGIOPLASTY IMPLANT 08/20/2017 BONITA COLEMAN MD Ot E78.00 PURE HYPERCHOLESTEROLEMIA, UNSPECIFIED 08/20/2017 BONITA COLEMAN MD Ot F05 DELIRIUM DUE TO KNOWN PHYSIOLOGICAL COND 08/20/2017 BONITA COLEMAN MD Ot F41.9 ANXIETY DISORDER, UNSPECIFIED 08/20/2017 BONITA COLEMAN MD Ot I11.0 HYPERTENSIVE HEART DISEASE WITH HEART FA 08/20/2017 BONITA COLEMAN MD Ot I25.10 ATHSCL HEART DISEASE OF [place] CORONARY 08/20/2017 BONITA COLEMAN MD Ot I25.2 OLD MYOCARDIAL INFARCTION 08/20/2017 BONITA COLEMAN MD Ot I34.0 NONRHEUMATIC MITRAL (VALVE) INSUFFICIENC 08/20/2017 BONITA COLEMAN MD Ot I48.0 PAROXYSMAL ATRIAL FIBRILLATION 08/20/2017 BONITA COLEMAN MD Ot I50.31 ACUTE DIASTOLIC (CONGESTIVE) HEART FAILU 08/20/2017 BONITA COLEMAN MD, Ot K21.9 GASTRO-ESOPHAGEAL REFLUX DISEASE WITHOUT 08/20/2017 BONITA COLEMAN MD, Ot M81.0 AGE-RELATED OSTEOPOROSIS W/O CURRENT PAT 08/20/2017 BONITA COLEMAN MD, Ot R13.13 DYSPHAGIA, PHARYNGEAL PHASE 08/20/2017 BONITA COLEMAN MD, Ot Z79.02 MCC (CURRENT) USE OF ANTITHROMBOTI 08/20/2017 BONITA COLEMAN MD, Ot Z79.82 MCC (CURRENT) USE OF ASPIRIN 08/20/2017 BONITA COLEMAN MD, Ot Z95.1 PRESENCE OF AORTOCORONARY BYPASS GRAFT 08/20/2017 BONITA COLEMAN MD, Ot Z95.5 PRESENCE OF CORONARY ANGIOPLASTY IMPLANT 10/24/2017 GORDO OVERTON DO, Ot E78.00 PURE HYPERCHOLESTEROLEMIA, UNSPECIFIED 10/24/2017 GORDO OVERTON DO, Ot E78.1 PURE HYPERGLYCERIDEMIA Procedures Code Description Performed By Performed On [id number] MEASURE OF CARDIAC SAMPL PRESSURE, L H 08/20/2017 [id number] FLUOROSCOPY OF MULT COR ART USING L OSM 08/20/2017 [id number] FLUOROSCOPY OF LEFT HEART USING LOW OSMO 08/20/2017 Results Test Result Range Complete blood count (CBC) with automated white blood cell (WBC) differential - 08/17/17 08:45 Blood leukocytes automated count (number/volume) 7.7 10*3/uL 4.3-11.0 Blood erythrocytes automated count (number/volume) 4.42 10*6/uL 4.35-5.85 Venous blood hemoglobin measurement (mass/volume) 12.8 g/dL 11.5-16.0 Blood hematocrit (volume fraction) 40 % 35-52 Automated erythrocyte mean corpuscular volume 90 [foz_us] 80-99 Automated erythrocyte mean corpuscular hemoglobin (mass per erythrocyte) 29 pg 25-34 Automated erythrocyte mean corpuscular hemoglobin concentration measurement ( mass/volume) 32 g/dL 32-36 Automated erythrocyte distribution width ratio 14.5 % 10.0-14.5 Automated blood platelet count (count/volume) 166 10*3/uL 130-400 Automated blood platelet mean volume measurement 12.3 [foz_us] 7.4-10.4 Automated blood neutrophils/100 leukocytes 67 % 42-75 Automated blood lymphocytes/100 leukocytes 20 % 12-44 Blood monocytes/100 leukocytes 12 % 0-12 Automated blood eosinophils/100 leukocytes 1 % 0-10 Automated blood basophils/100 leukocytes 0 % 0-10 Blood neutrophils automated count (number/volume) 5.2 10*3 1.8-7.8 Blood lymphocytes automated count (number/volume) 1.6 10*3 1.0-4.0 Blood monocytes automated count (number/volume) 0.9 10*3 0.0-1.0 Automated eosinophil count 0.1 10*3/uL 0.0-0.3 Automated blood basophil count (count/volume) 0.0 10*3/uL 0.0-0.1 Comprehensive metabolic panel - 08/17/17 08:45 Serum or plasma sodium measurement (moles/volume) 143 mmol/L 135-145 Serum or plasma potassium measurement (moles/volume) 4.2 mmol/L 3.6-5.0 Serum or plasma chloride measurement (moles/volume) 109 mmol/L 98-107 Carbon dioxide 25 mmol/L 21-32 Serum or plasma anion gap determination (moles/volume) 9 mmol/L 5-14 Serum or plasma urea nitrogen measurement (mass/volume) 36 mg/dL 7-18 Serum or plasma creatinine measurement (mass/volume) 1.20 mg/dL 0.60-1.30 Serum or plasma urea nitrogen/creatinine mass ratio 30 NRG Serum or plasma creatinine measurement with calculation of estimated glomerular filtration rate 43 NRG Serum or plasma glucose measurement (mass/volume) 102 mg/dL 70-105 Serum or plasma calcium measurement (mass/volume) 9.4 mg/dL 8.5-10.1 Serum or plasma total bilirubin measurement (mass/volume) 0.4 mg/dL 0.1-1.0 Serum or plasma alkaline phosphatase measurement (enzymatic activity/volume) 43 U/L 40-136 Serum or plasma aspartate aminotransferase measurement (enzymatic activity/ volume) 31 U/L 5-34 Serum or plasma alanine aminotransferase measurement (enzymatic activity/volume ) 27 U/L 0-55 Serum or plasma protein measurement (mass/volume) 6.6 g/dL 6.4-8.2 Serum or plasma albumin measurement (mass/volume) 3.9 g/dL 3.2-4.5 Magnesium - 08/17/17 08:45 Magnesium 2.2 mg/dL 1.8-2.4 Serum or plasma troponin i.cardiac measurement (mass/volume) - 08/17/17 08:45 Serum or plasma troponin i.cardiac measurement (mass/volume) < ng/ mL <0.30 Myoglobin, serum - 08/17/17 08:45 Myoglobin, serum 66.2 ng/mL 10.0-92.0 Serum or plasma lithium measurement (moles/volume) - 08/17/17 08:45 BNP level 1215.7 pg/mL <100.0 PT panel in platelet poor plasma by coagulation assay - 08/17/17 08:45 Prothrombin time (PT) in platelet poor plasma by coagulation assay 14.2 s 12.2-14.7 INR in platelet poor plasma or blood by coagulation assay 1.1 0.8-1.4 Activated partial thromboplastin time (aPTT) in platelet poor plasma bycoagulation assay - 08/17/17 08:45 Activated partial thromboplastin time (aPTT) in platelet poor plasma bycoagulation assay 31 s 24-35 Fibrin D-dimer FEU measurement in platelet poor plasma (mass/volume) - 08:45 Fibrin D-dimer FEU measurement in platelet poor plasma (mass/volume) 1.67 ug/mL 0.00-0.49 Erythrocyte sedimentation rate by westergren method - 08/17/17 09:45 Erythrocyte sedimentation rate by westergren method 4 mm 0-30 Serum or plasma troponin i.cardiac measurement (mass/volume) - 08/17/17 14:42 Serum or plasma troponin i.cardiac measurement (mass/volume) < ng/ mL <0.30 Serum or plasma troponin i.cardiac measurement (mass/volume) - 08/17/17 20:53 Serum or plasma troponin i.cardiac measurement (mass/volume) < ng/ mL <0.30 Serum or plasma troponin i.cardiac measurement (mass/volume) - 08/18/17 02:50 Serum or plasma troponin i.cardiac measurement (mass/volume) < ng/ mL <0.30 Complete blood count (CBC) with automated white blood cell (WBC) differential - 08/18/17 05:00 Blood leukocytes automated count (number/volume) 8.7 10*3/uL 4.3-11.0 Blood erythrocytes automated count (number/volume) 4.04 10*6/uL 4.35-5.85 Venous blood hemoglobin measurement (mass/volume) 11.7 g/dL 11.5-16.0 Blood hematocrit (volume fraction) 37 % 35-52 Automated erythrocyte mean corpuscular volume 91 [foz_us] 80-99 Automated erythrocyte mean corpuscular hemoglobin (mass per erythrocyte) 29 pg 25-34 Automated erythrocyte mean corpuscular hemoglobin concentration measurement ( mass/volume) 32 g/dL 32-36 Automated erythrocyte distribution width ratio 14.5 % 10.0-14.5 Automated blood platelet count (count/volume) 132 10*3/uL 130-400 Automated blood platelet mean volume measurement 11.8 [foz_us] 7.4-10.4 Automated blood neutrophils/100 leukocytes 71 % 42-75 Automated blood lymphocytes/100 leukocytes 15 % 12-44 Blood monocytes/100 leukocytes 12 % 0-12 Automated blood eosinophils/100 leukocytes 2 % 0-10 Automated blood basophils/100 leukocytes 0 % 0-10 Blood neutrophils automated count (number/volume) 6.2 10*3 1.8-7.8 Blood lymphocytes automated count (number/volume) 1.3 10*3 1.0-4.0 Blood monocytes automated count (number/volume) 1.0 10*3 0.0-1.0 Automated eosinophil count 0.1 10*3/uL 0.0-0.3 Automated blood basophil count (count/volume) 0.0 10*3/uL 0.0-0.1 Comprehensive metabolic panel - 08/18/17 05:00 Serum or plasma sodium measurement (moles/volume) 144 mmol/L 135-145 Serum or plasma potassium measurement (moles/volume) 3.8 mmol/L 3.6-5.0 Serum or plasma chloride measurement (moles/volume) 112 mmol/L 98-107 Carbon dioxide 23 mmol/L 21-32 Serum or plasma anion gap determination (moles/volume) 9 mmol/L 5-14 Serum or plasma urea nitrogen measurement (mass/volume) 34 mg/dL 7-18 Serum or plasma creatinine measurement (mass/volume) 0.97 mg/dL 0.60-1.30 Serum or plasma urea nitrogen/creatinine mass ratio 35 NRG Serum or plasma creatinine measurement with calculation of estimated glomerular filtration rate 55 NRG Serum or plasma glucose measurement (mass/volume) 103 mg/dL 70-105 Serum or plasma calcium measurement (mass/volume) 8.4 mg/dL 8.5-10.1 Serum or plasma total bilirubin measurement (mass/volume) 0.3 mg/dL 0.1-1.0 Serum or plasma alkaline phosphatase measurement (enzymatic activity/volume) 35 U/L 40-136 Serum or plasma aspartate aminotransferase measurement (enzymatic activity/ volume) 24 U/L 5-34 Serum or plasma alanine aminotransferase measurement (enzymatic activity/volume ) 24 U/L 0-55 Serum or plasma protein measurement (mass/volume) 5.8 g/dL 6.4-8.2 Serum or plasma albumin measurement (mass/volume) 3.4 g/dL 3.2-4.5 Serum or plasma phosphate measurement (mass/volume) - 08/18/17 05:00 Serum or plasma phosphate measurement (mass/volume) 3.5 mg/dL 2.3-4.7 Magnesium - 08/18/17 05:00 Magnesium 2.0 mg/dL 1.8-2.4 Lipid 1996 panel - 08/18/17 05:00 Serum or plasma triglyceride measurement (mass/volume) 58 mg/dL <150 Serum or plasma cholesterol measurement (mass/volume) 136 mg/dL < 200 Serum or plasma cholesterol in HDL measurement (mass/volume) 54 mg/ dL 40-60 Cholesterol in LDL [mass/volume] in serum or plasma by direct assay 65 mg/dL 1-129 Serum or plasma cholesterol in VLDL measurement (mass/volume) 12 mg/ dL 5-40 Complete blood count (CBC) with automated white blood cell (WBC) differential - 08/19/17 05:05 Blood leukocytes automated count (number/volume) 13.2 10*3/uL 4.3-11.0 Blood erythrocytes automated count (number/volume) 4.29 10*6/uL 4.35-5.85 Venous blood hemoglobin measurement (mass/volume) 12.4 g/dL 11.5-16.0 Blood hematocrit (volume fraction) 39 % 35-52 Automated erythrocyte mean corpuscular volume 90 [foz_us] 80-99 Automated erythrocyte mean corpuscular hemoglobin (mass per erythrocyte) 29 pg 25-34 Automated erythrocyte mean corpuscular hemoglobin concentration measurement ( mass/volume) 32 g/dL 32-36 Automated erythrocyte distribution width ratio 14.5 % 10.0-14.5 Automated blood platelet count (count/volume) 158 10*3/uL 130-400 Automated blood platelet mean volume measurement 12.1 [foz_us] 7.4-10.4 Automated blood neutrophils/100 leukocytes 82 % 42-75 Automated blood lymphocytes/100 leukocytes 6 % 12-44 Blood monocytes/100 leukocytes 12 % 0-12 Automated blood eosinophils/100 leukocytes 0 % 0-10 Automated blood basophils/100 leukocytes 0 % 0-10 Blood neutrophils automated count (number/volume) 10.8 10*3 1.8-7.8 Blood lymphocytes automated count (number/volume) 0.8 10*3 1.0-4.0 Blood monocytes automated count (number/volume) 1.5 10*3 0.0-1.0 Automated eosinophil count 0.0 10*3/uL 0.0-0.3 Automated blood basophil count (count/volume) 0.0 10*3/uL 0.0-0.1 Whole blood basic metabolic panel - 08/19/17 05:05 Serum or plasma sodium measurement (moles/volume) 144 mmol/L 135-145 Serum or plasma potassium measurement (moles/volume) 3.6 mmol/L 3.6-5.0 Serum or plasma chloride measurement (moles/volume) 112 mmol/L 98-107 Carbon dioxide 21 mmol/L 21-32 Serum or plasma anion gap determination (moles/volume) 11 mmol/L 5-14 Serum or plasma urea nitrogen measurement (mass/volume) 22 mg/dL 7-18 Serum or plasma creatinine measurement (mass/volume) 0.83 mg/dL 0.60-1.30 Serum or plasma urea nitrogen/creatinine mass ratio 27 NRG Serum or plasma creatinine measurement with calculation of estimated glomerular filtration rate > NRG Serum or plasma glucose measurement (mass/volume) 117 mg/dL 70-105 Serum or plasma calcium measurement (mass/volume) 8.9 mg/dL 8.5-10.1 Serum or plasma phosphate measurement (mass/volume) - 08/19/17 05:05 Serum or plasma phosphate measurement (mass/volume) 2.3 mg/dL 2.3-4.7 Magnesium - 08/19/17 05:05 Magnesium 1.9 mg/dL 1.8-2.4 Serum or plasma lithium measurement (moles/volume) - 08/19/17 05:05 BNP level 761.1 pg/mL <100.0 Arterial blood gas measurement - 08/19/17 05:25 Blood pCO2 34 mm[Hg] 35-45 Blood pO2 65 mm[Hg] 79-93 Arterial blood bicarbonate measurement (moles/volume) 21 mmol/L 23-27 Arterial blood base excess by calculation -2.6 mmol/L - 2.5-2.5 Arterial blood oxygen saturation measurement 94 % 94-100 * Inhaled oxygen flow rate 2LNC NRG Arterial blood pH measurement with patient temperature correction 7.41 7.37-7.43 Arterial blood carbon dioxide, total measurement (moles/volume) 22.3 mmol/L 21.0-31.0 Body site RIGHT BRACIAL NRG Assessment of wrist artery patency prior to arterial puncture NA NRG Setting of ventilation mode NO NRG Measurement of body temperature 98.6 NRG Bacterial blood culture - 08/19/17 06:38 Bacterial blood culture NG NRG Complete urinalysis with reflex to culture - 08/19/17 06:40 Urine color determination YELLOW NRG Urine clarity determination SLIGHTLY CLOUDY NRG Urine pH measurement by test strip 5 5-9 Specific gravity of urine by test strip 1.010 1.016- 1.022 Urine protein assay by test strip, semi-quantitative NEGATIVE NEGATIVE Urine glucose detection by automated test strip NEGATIVE NEGATIVE Erythrocytes detection in urine sediment by light microscopy 1+ NEGATIVE Urine ketones detection by automated test strip NEGATIVE NEGATIVE Urine nitrite detection by test strip NEGATIVE NEGATIVE Urine total bilirubin detection by test strip NEGATIVE NEGATIVE Urine urobilinogen measurement by automated test strip (mass/volume) NORMAL NORMAL Urine leukocyte esterase detection by dipstick 1+ NEGATIVE Automated urine sediment erythrocyte count by microscopy (number/high power field) [HPF] NRG Automated urine sediment leukocyte count by microscopy (number/high power field ) [HPF] NRG Bacteria detection in urine sediment by light microscopy NEGATIVE NRG Squamous epithelial cells detection in urine sediment by light microscopy 2-5 NRG Crystals detection in urine sediment by light microscopy NONE NRG Casts detection in urine sediment by light microscopy NONE NRG Mucus detection in urine sediment by light microscopy NEGATIVE NRG Complete urinalysis with reflex to culture NO NRG Bacterial blood culture - 08/19/17 06:45 Bacterial blood culture NG NRG Blood lactic acid measurement (moles/volume) - 08/19/17 06:46 Blood lactic acid measurement (moles/volume) 1.07 mmol/L 0.50-2.00 Bacterial blood culture - 08/19/17 06:56 Bacterial blood culture [facility] [place] Complete blood count (CBC) with automated white blood cell (WBC) differential - 08/20/17 05:00 Blood leukocytes automated count (number/volume) 9.9 10*3/uL 4.3-11.0 Blood erythrocytes automated count (number/volume) 4.18 10*6/uL 4.35-5.85 Venous blood hemoglobin measurement (mass/volume) 12.1 g/dL 11.5-16.0 Blood hematocrit (volume fraction) 38 % 35-52 Automated erythrocyte mean corpuscular volume 91 [foz_us] 80-99 Automated erythrocyte mean corpuscular hemoglobin (mass per erythrocyte) 29 pg 25-34 Automated erythrocyte mean corpuscular hemoglobin concentration measurement ( mass/volume) 32 g/dL 32-36 Automated erythrocyte distribution width ratio 14.6 % 10.0-14.5 Automated blood platelet count (count/volume) 144 10*3/uL 130-400 Automated blood platelet mean volume measurement 11.9 [foz_us] 7.4-10.4 Automated blood neutrophils/100 leukocytes 70 % 42-75 Automated blood lymphocytes/100 leukocytes 16 % 12-44 Blood monocytes/100 leukocytes 12 % 0-12 Automated blood eosinophils/100 leukocytes 2 % 0-10 Automated blood basophils/100 leukocytes 0 % 0-10 Blood neutrophils automated count (number/volume) 6.9 10*3 1.8-7.8 Blood lymphocytes automated count (number/volume) 1.6 10*3 1.0-4.0 Blood monocytes automated count (number/volume) 1.2 10*3 0.0-1.0 Automated eosinophil count 0.2 10*3/uL 0.0-0.3 Automated blood basophil count (count/volume) 0.0 10*3/uL 0.0-0.1 Whole blood basic metabolic panel - 08/20/17 05:00 Serum or plasma sodium measurement (moles/volume) 142 mmol/L 135-145 Serum or plasma potassium measurement (moles/volume) 3.6 mmol/L 3.6-5.0 Serum or plasma chloride measurement (moles/volume) 109 mmol/L 98-107 Carbon dioxide 24 mmol/L 21-32 Serum or plasma anion gap determination (moles/volume) 9 mmol/L 5-14 Serum or plasma urea nitrogen measurement (mass/volume) 20 mg/dL 7-18 Serum or plasma creatinine measurement (mass/volume) 0.81 mg/dL 0.60-1.30 Serum or plasma urea nitrogen/creatinine mass ratio 25 NRG Serum or plasma creatinine measurement with calculation of estimated glomerular filtration rate > NRG Serum or plasma glucose measurement (mass/volume) 94 mg/dL 70-105 Serum or plasma calcium measurement (mass/volume) 8.8 mg/dL 8.5-10.1 Serum or plasma phosphate measurement (mass/volume) - 08/20/17 05:00 Serum or plasma phosphate measurement (mass/volume) 2.2 mg/dL 2.3-4.7 Magnesium - 08/20/17 05:00 Magnesium 1.9 mg/dL 1.8-2.4 Complete blood count (CBC) with automated white blood cell (WBC) differential - 10/03/17 08:40 Blood leukocytes automated count (number/volume) 7.9 10*3/uL 4.3-11.0 Blood erythrocytes automated count (number/volume) 4.14 10*6/uL 4.35-5.85 Venous blood hemoglobin measurement (mass/volume) 12.1 g/dL 11.5-16.0 Blood hematocrit (volume fraction) 37 % 35-52 Automated erythrocyte mean corpuscular volume 90 [foz_us] 80-99 Automated erythrocyte mean corpuscular hemoglobin (mass per erythrocyte) 29 pg 25-34 Automated erythrocyte mean corpuscular hemoglobin concentration measurement ( mass/volume) 32 g/dL 32-36 Automated erythrocyte distribution width ratio 14.9 % 10.0-14.5 Automated blood platelet count (count/volume) 198 10*3/uL 130-400 Automated blood platelet mean volume measurement 11.6 [foz_us] 7.4-10.4 Automated blood neutrophils/100 leukocytes 69 % 42-75 Automated blood lymphocytes/100 leukocytes 19 % 12-44 Blood monocytes/100 leukocytes 10 % 0-12 Automated blood eosinophils/100 leukocytes 1 % 0-10 Automated blood basophils/100 leukocytes 0 % 0-10 Blood neutrophils automated count (number/volume) 5.5 10*3 1.8-7.8 Blood lymphocytes automated count (number/volume) 1.5 10*3 1.0-4.0 Blood monocytes automated count (number/volume) 0.8 10*3 0.0-1.0 Automated eosinophil count 0.1 10*3/uL 0.0-0.3 Automated blood basophil count (count/volume) 0.0 10*3/uL 0.0-0.1 Comprehensive metabolic panel - 10/03/17 08:40 Serum or plasma sodium measurement (moles/volume) 140 mmol/L 135-145 Serum or plasma potassium measurement (moles/volume) 4.1 mmol/L 3.6-5.0 Serum or plasma chloride measurement (moles/volume) 103 mmol/L 98-107 Carbon dioxide 25 mmol/L 21-32 Serum or plasma anion gap determination (moles/volume) 12 mmol/L 5-14 Serum or plasma urea nitrogen measurement (mass/volume) 50 mg/dL 7-18 Serum or plasma creatinine measurement (mass/volume) 2.08 mg/dL 0.60-1.30 Serum or plasma urea nitrogen/creatinine mass ratio 24 NRG Serum or plasma creatinine measurement with calculation of estimated glomerular filtration rate 23 NRG Serum or plasma glucose measurement (mass/volume) 92 mg/dL 70-105 Serum or plasma calcium measurement (mass/volume) 9.2 mg/dL 8.5-10.1 Serum or plasma total bilirubin measurement (mass/volume) 0.6 mg/dL 0.1-1.0 Serum or plasma alkaline phosphatase measurement (enzymatic activity/volume) 21 U/L 40-136 Serum or plasma aspartate aminotransferase measurement (enzymatic activity/ volume) 52 U/L 5-34 Serum or plasma alanine aminotransferase measurement (enzymatic activity/volume ) 46 U/L 0-55 Serum or plasma protein measurement (mass/volume) 6.4 g/dL 6.4-8.2 Serum or plasma albumin measurement (mass/volume) 3.6 g/dL 3.2-4.5 Encounters ACCT No. Visit Date/Time Discharge Status Pt. Type Provider Facility Loc./Unit Complaint [id number] 10/03/2017 07:00:00 10/03/2017 23:59:59 CLS Outpatient GORDO OVERTON DO [facility] E78.0 [id number] 08/17/2017 10:24:00 08/20/2017 14:00:00 DIS Inpatient JARED FRENCH, BONITA Garcia [facility] ICU A FIB WITH RVR [id number] 09/10/2016 10:36:00 09/10/2016 13:07:00 DIS Emergency SCOUT CHANEL MD [facility] ER FALL/LEFT FOOT PAIN [id number] 05/08/2016 11:17:00 05/08/2016 12:01:00 DIS Emergency SCOUT CHANEL MD [facility] ER RIGHT LEG REDNESS/ FEELS HOT [id number] 04/18/2016 13:11:00 04/18/2016 23:59:59 CLS Outpatient KHRIS DOMINIQUE [facility] CARD CAD,CAROTID ARTERY STENOSIS,HTN,HLP [id number] 04/16/2016 10:32:00 04/16/2016 23:59:59 CLS Outpatient VERÓNICA MENDEZ MD [facility] RAD VISUAL DISTURBANCE, HISTORY OF TIA, CAROTID ARTERY [id number] 04/19/2015 08:32:00 04/19/2015 23:59:59 CLS Outpatient KHRIS DOMINIQUE [facility] CARD CAD CAROTID ARTERY STENOSIS HTN HYPERLIPIDEMIA [id number] 11/08/2013 06:35:00 11/09/2013 15:40:00 DIS Inpatient SHANNA HUNG MD [facility] CSD CHF;COUGH;CP [id number] 09/19/2013 16:00:00 09/20/2013 15:30:00 DIS Outpatient VERÓNICA MNEDEZ MD [facility] CATH CHEST PAIN;BI GEMINY [id number] 03/12/2013 09:47:00 03/12/2013 23:59:59 CLS Outpatient SHANNA HUNG MD [facility] RAD OSTEOPOROSIS [id number] 01/28/2013 09:39:00 01/28/2013 23:59:59 CLS Outpatient VERÓNICA MENDEZ MD [facility] CARD CAD,HTN [id number] 09/18/2018 12:54:00 ACT Inpatient Jose JONES MD [facility] R WRIST PAIN,CHEST PAIN [id number] 11/24/2013 10:27:00 Document Registration [id number] 03/27/2012 08:38:00 Document Registration [id number] 12/23/2011 16:50:00 Document Registration [id number] 03/21/2011 07:55:00 Document Registration [id number] 01/16/2011 09:04:00 Document Registration [id number] 01/03/2011 08:53:00 Document Registration [id number] 04/19/2015 08:32:41 ACT Document Registration
[2018-09-18] MEDS ORDERED: CATHETER FLUSH 10 ML SYR IV PRN (14:15)
[2018-09-18] MEDS ORDERED: HYDROmorphone 2 MG/ML VIAL (DILAUDID) IV PRN (14:15)
--- NOTE | 2018-09-18 14:19 | Diagnostic Imaging Report ---
Indication: Chest pain. Time of exam 2:06 PM Comparison is made with prior chest from 08/20/2017. Heart size is stable. Lungs appear to be clear. No infiltrate is seen. No failure is detected. No effusion or pneumothorax is identified. Impression: No acute cardiopulmonary processes detected. Dictated by: Dictated on workstation # [id number]
--- NOTE | 2018-09-18 14:21 | Diagnostic Imaging Report ---
Indication: Right wrist pain. Time of exam 2:08 PM 3 views of the right wrist were obtained. A splint obscures some bone detail. The distal radius and ulna appear intact. There is chondrocalcinosis of the triangular fibrocartilage. Carpal bones appear to be intact. There are degenerative changes of the triscaphe joint. Visualized metacarpals are intact. There is generalized demineralization. Impression: Chronic changes, as described. No acute bony abnormalities detected. Dictated by: Dictated on workstation # [id number]
[2018-09-18] MEDS ORDERED: LISI-556 PO (15:16)
[2018-09-18] MEDS ORDERED: OMEG-141 PO (15:16)
[2018-09-18] MEDS ORDERED: CRAN500T2 PO (15:16)
[2018-09-18] MEDS ORDERED: ROSU5TAB12 PO (15:16)
[2018-09-18] MEDS ORDERED: CHOL10007 PO (15:16)
[2018-09-18] MEDS ORDERED: RIVA15TA PO (15:16)
[2018-09-18] MEDS ORDERED: METO-387 PO (15:16)
--- NOTE | 2018-09-18 15:18 | NUR ---
PATIENT HAD A DETAILED MEDICATION LIST, I WENT OVER IT WITH HER WELL COMPARING WITH THE EXT MED HX. SHE TAKES THE FOLLOWING OTC: VITAMIN D 1000 NOON ASPIRIN 81MG HS CRANBERRY 500MG NOON OMEGA 3 500MG 2 BID
[2018-09-18] MEDS ORDERED: CALCIUM CARBONATE 500 MG (TUMS) TAB.CHEW PO PRN (18:00)
[2018-09-18] MEDS ORDERED: HYDROcodone/APAP 5 MG/325 MG (LORTAB) TAB PO PRN (18:00)
[2018-09-18] MEDS ORDERED: DOCUSATE SODIUM 100 MG (COLACE) CAP PO PRN (18:00)
[2018-09-18] MEDS ORDERED: MELATONIN 3 MG TABLET PO PRN (18:00)
[2018-09-18] MEDS ORDERED: diphenhydrAMINE 25 MG TAB (BENADRYL) PO PRN (18:00)
[2018-09-18] MEDS ORDERED: ALPRAZolam 0.25 MG (XANAX) TAB PO PRN (18:00)
[2018-09-18] MEDS ORDERED: ONDANSETRON 4 MG/2 ML (SDV) Z0FRAN IVP PRN (18:00)
[2018-09-18] MEDS ORDERED: RX-TRAMADOL 50 MG (ULTRAM) TAB PPK#4 PO PRN (18:00)
[2018-09-18] MEDS ORDERED: ACETAMINOPHEN 500 MG TAB (TYLENOL) PO PRN (18:00)
[2018-09-18] MEDS: TICAGRELOR 90 MG TABLET (BRILINTA) PO SCH (21:07)
[2018-09-18] MEDS: IBUPROFEN TABLET 200 MG TAB PO PRN (21:07)
[2018-09-18] MEDS: CATHETER FLUSH 10 ML SYR IV SCH (21:07)
[2018-09-19] VITALS (20 sets, daily range): BP systolic 83–150; BP diastolic 40–88
[2018-09-19] MEDS: ENOXAPARIN 80 MG/0.8 ML (LOVENOX) SYR SC SCH ×2 (00:58→12:49)
[2018-09-19 03:19] LABS: BASOPHILS % (AUTO) 0 % (0-10); EOSINOPHILS % (AUTO) 0 % (0-10); HEMATOCRIT 39 % (35-52); HEMOGLOBIN 12.5 G/DL (11.5-16.0); LYMPHOCYTES # (AUTO) 0.6 X 10^3 (1.0-4.0); LYMPHOCYTES % (AUTO) 5 % (12-44); MEAN CORPUSCULAR HEMOGLOBIN 29 PG (25-34); MEAN CORPUSCULAR HGB CONC 32 G/DL (32-36); MEAN CORPUSCULAR VOLUME 91 FL (80-99); MEAN PLATELET VOLUME 10.9 FL (7.4-10.4); MONOCYTES # (AUTO) 1.9 X 10^3 (0.0-1.0); MONOCYTES % (AUTO) 14 % (0-12); NEUTROPHILS # (AUTO) 11.2 X 10^3 (1.8-7.8); NEUTROPHILS % (AUTO) 82 % (42-75); PLATELET COUNT 176 10^3/uL (130-400); WHITE BLOOD COUNT 13.7 10^3/uL (4.3-11.0)
[2018-09-19 03:40] LABS: ALBUMIN 3.7 GM/DL (3.2-4.5); BILIRUBIN,TOTAL 0.7 MG/DL (0.1-1.0); CALCIUM 9.2 MG/DL (8.5-10.1); CREATININE SERUM 1.21 MG/DL (0.60-1.30); POTASSIUM 3.8 MMOL/L (3.6-5.0); TOTAL PROTEIN 6.7 GM/DL (6.4-8.2)
--- NOTE | 2018-09-19 07:02 | History & Physical-Hospitalist ---
History of Present Illness HPI/Chief Complaint CC: NSTEMI HPI: This is an 82-year-old white female clinic patient of mine with a past medical history of severe CAD with multiple stents placed in the past and atrial fibrillation maintained on anticoagulation who presented to the ER with right wrist pain but upon further workup in questioning she is found to have an elevated troponin. She was placed in ICU for close monitoring and workup ensued for the right wrist pain. Dr. Ken was gracious enough to provide his consultation expertise and will rule out gout and inflammatory arthritis in place patient in a brace and start steroids. She did have a cardiac catheterization by which was uneventful with stent placement in the LAD. Patient had actually been crocheting and knitting a lot in the last 1 week after she had not perform that type of activity for the past one year and it appears that the right hand indicates severe overuse with arthritis issue. Patient reports pain is much better controlled with the brace he is placed on her. Source: patient Exam Limitations: no limitations Date Seen 09/19/18 Time Seen by a Provider: 13:30 Attending Physician Jose Laguerre MD PCP Giovana Overton DO Referring Physician Date of Admission Sep 18, 2018 at 12:54 Home Medications & Allergies Home Medications Reviewed patient Home Medication Reconciliation performed by pharmacy medication reconciliations licensed veterinary technician and/or nursing. Patients Allergies have been reviewed. Allergies Allergies Coded Allergies Penicillins (Unverified Allergy, Mild, 04/19/09) Past Fbuojnb-Xfngsp-Kbuede Hx Past Med/Social Hx: Reviewed Nursing Past Med/Soc Hx, Reviewed and Corrections made Patient Social History Marrital Status: Employed/Student: retired Alcohol Use: Denies Use Recreational Drug Use: No Smoking Status: Never a Smoker Recent Foreign Travel: No Contact w/other who traveled: No Recent Hopitalizations: No Recent Infectious Disease Expo: No Immunizations Up To Date Date of Pneumonia Vaccine: Sep 18, 2014 Date of Influenza Vaccine: May 19, 2018 Seasonal Allergies Seasonal Allergies: No Past Medical History Surgeries: Appendectomy, Coronary Stent, Hysterectomy Cardiac: Coronary Artery Disease, Heart Attack, High Cholesterol, Hypertension Reproductive: No Genitourinary: Bladder Infection, UTI-Chronic Gastrointestinal: Gastroesophageal Reflux History of Blood Disorders: No Family History Heart Disease Review of Systems Constitutional: see HPI EENTM: no symptoms reported Respiratory: no symptoms reported Cardiovascular: chest pain Gastrointestinal: no symptoms reported Genitourinary: no symptoms reported Musculoskeletal: joint pain (right wrist pain) Skin: no symptoms reported Psychiatric/Neurological: No Symptoms Reported All Other Systems Reviewed Negative Unless Noted: Yes Physical Exam Physical Exam Vital Signs Vital Signs - First Documented 09/18/18 09/18/18 10:55 13:35 Temp 98.3 Pulse 57 Resp 12 B/P (MAP) 177/79 (111) Pulse Ox 97 O2 Delivery Room Air O2 Flow Rate 4.00 Capillary Refill : Less Than 3 Seconds Height, Weight, BMI Height: 5'6.00" Weight: 156lbs. 1.0oz. 70.199632ft; 25.2 BMI Method:Stated General Appearance: No Apparent Distress, WD/WN, Chronically ill, Thin Eyes: Bilateral Eye Normal Inspection, Bilateral Eye PERRL HEENT: PERRL/EOMI, Normal ENT Inspection, Pharynx Normal Neck: Full Range of Motion, Normal Inspection, Non Tender, Supple, Carotid Bruit Respiratory: Chest Non Tender, Lungs Clear, Normal Breath Sounds, No Accessory Muscle Use, No Respiratory Distress Cardiovascular: No Edema, No Gallop, No JVD, No Murmur, Normal Peripheral Pulses, Irregularly Irregular Gastrointestinal: Normal Bowel Sounds, No Organomegaly, No Pulsatile Mass, Non Tender, Soft Back: Normal Inspection, No CVA Tenderness, No Vertebral Tenderness Extremity: Normal Capillary Refill, Normal Inspection, Normal Range of Motion, Non Tender, No Calf Tenderness, No Pedal Edema, Swelling (right hand and wrist) Neurologic/Psychiatric: Alert, Oriented x3, No Motor/Sensory Deficits, Normal Mood/Affect Skin: Normal Color, Warm/Dry Lymphatic: No Adenopathy Results Results/Procedures Labs Laboratory Tests 09/18/18 10:55 09/19/18 03:07 Patient resulted labs reviewed. 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 Severe right hand and wrist pain likely overuse and arthritis consulted orthopedic surgery Peroxisomal atrial fibrillation maintained on chronic anticoagulation Hyperlipidemia History of recurrent UTI Plan: Home medications Pain control Right wrist brace Appreciate cardiology and orthopedic surgery expertise Admission Status: Inpatient Order (span 2 midnights) Reason for Inpatient Admission: NSTEMI Diagnosis/Problems Diagnosis/Problems (1) NSTEMI (non-ST elevated myocardial infarction) Status: Acute (2) Status post insertion of drug-eluting stent into left anterior descending ( LAD) artery Status: Acute (3) Right wrist pain Status: Acute (4) Recurrent UTI Status: Chronic (5) Atrophic vaginitis Status: Chronic (6) Paroxysmal atrial fibrillation Status: Chronic (7) Current use of mcc anticoagulation Status: Chronic Clinical Quality Measures DVT/VTE Risk/Contraindication: Risk Factor Score Per Nursin RFS Level Per Nursing on Admit: 2=Moderate GIOVANA OVERTON DO Sep 19, 2018 07:02
[2018-09-19] MEDS: CATHETER FLUSH 10 ML SYR IV SCH ×3 (08:02→20:59)
[2018-09-19] MEDS: TICAGRELOR 90 MG TABLET (BRILINTA) PO SCH ×2 (08:54→20:58)
--- NOTE | 2018-09-19 09:23 | Consultation ---
History of Present Illness History of Present Illness Patient Consulted On(kirsten/time) 09/19/18 09:17 Date Seen by Provider: Sep 19, 2018 Time Seen by Provider: 09:17 Reason for Visit: Right wrist pain. History of Present Illness 82 y/o right handed white female, admitted to hospital with new onset chest pain. Interestingly also had the abrut onset of right wrist pain. Had been doing a lot of crocheting she hadn't done in a long time and pain got worse. Has gotten a little better over night with a split and time. No prior history of gout or pseudogout that she remembers. Allergies and Home Medications Allergies Coded Allergies: Penicillins (Unverified Allergy, Mild, 04/19/09) Home Medications Aspirin 81 Mg Tablet.dr, 81 MG PO HS, (Reported) Cholecalciferol (Vitamin D3) 1,000 Unit Capsule, 1,000 UNIT PO 1200, (Reported) Cranberry Extract 500 Mg Tablet, 500 MG PO 1200, (Reported) Furosemide 20 Mg Tablet, 20 MG PO DAILY, (Reported) Lisinopril 5 Mg Tablet, 5 MG PO DAILY, (Reported) Metoprolol Succinate 25 Mg Tab.er.24h, 25 MG PO HS, (Reported) Benton-3/Dha/Epa/Fish Oil 1 Each Capsule, 2 CAP PO BID, (Reported) Potassium Chloride 10 Meq Tablet.er, 10 MEQ PO DAILY, (Reported) Rivaroxaban 15 Mg Tablet, 15 MG PO 1800, (Reported) Rosuvastatin Calcium 5 Mg Tablet, 5 MG PO HS, (Reported) Patient Home Medication List Home Medication List Reviewed: Yes Past Qprgaes-Pobmvw-Cnwmsa Hx Past Med/Social Hx: Reviewed Nursing Past Med/Soc Hx Patient Social History Alcohol Use: Denies Use Recreational Drug Use: No Smoking Status: Never a Smoker Recent Foreign Travel: No Contact w/Someone Who Travel: No Recent Infectious Disease Expo: No Recent Hopitalizations: No Physical Abuse: No Sexual Abuse: No Mistreated: No Fear: No Immunizations Up To Date Date of Pneumonia Vaccine: Sep 18, 2014 Date of Influenza Vaccine: May 19, 2018 Seasonal Allergies Seasonal Allergies: No Past Medical History Surgeries: Yes (cardiac stents) Appendectomy, Hysterectomy Respiratory: No Cardiac: Yes (STENTS X 4, CHF) Coronary Artery Disease, Heart Attack, High Cholesterol, Hypertension Neurological: No Reproductive Disorders: No UTI-Chronic Gastrointestinal: Yes Gastroesophageal Reflux Musculoskeletal: No Endocrine: No Cancer: Yes (BASIL CELL CARCINOMA) Psychosocial: No Integumentary: No Blood Disorders: No Family Medical History Heart Disease Review of Systems-General Constitutional: no symptoms reported EENTM: no symptoms reported Respiratory: no symptoms reported Cardiovascular: chest pain Gastrointestinal: no symptoms reported Genitourinary: no symptoms reported Musculoskeletal: joint pain Skin: other (errythema right wrist,) Psychiatric/Neurological: No Symptoms Reported Physical Exam-General Problems Physical Exam Vital Signs Vital Signs - First Documented 09/18/18 09/18/18 10:55 13:35 Temp 98.3 Pulse 57 Resp 12 B/P (MAP) 177/79 (111) Pulse Ox 97 O2 Delivery Room Air O2 Flow Rate 4.00 Capillary Refill : Less Than 3 Seconds General Appearance: mild distress Eyes: Bilateral Eye Normal Inspection HEENT: PERRL/EOMI Neck: supple, normal inspection Respiratory: no respiratory distress, no accessory muscle use Cardiovascular: normal peripheral pulses, regular rate, rhythm Gastrointestinal: non tender, soft Rectal: deferred Back: normal inspection, no CVA tenderness Extremities: inflammation, swelling, other (mild errythema over dorsum of right wrist, significant pain with any rom, worse with axial loading of thumb. localizes over the carpus. 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 Assessment/Plan Assessment/Plan Admission Diagnosis/Plan Right wrist inflammation Suspect Gout/pseudogout vs overuse arthritis vs some infectious etiology (much less likely) Plan: Check sed rate, crp, start Medrol dose pack and switch splints and follow / monitor. Clinical Quality Measures DVT/VTE Risk/Contraindication: Risk Factor Score Per Nursin RFS Level Per Nursing on Admit: 2=Moderate WILIAN ROMAN MD Sep 19, 2018 09:23
[2018-09-19] MEDS ORDERED: HEParin (CATH LAB) 2,000 ML IV ONE (10:32)
[2018-09-19] MEDS ORDERED: NS IV 1000 ML 1,000 ML ONE (10:32)
[2018-09-19] MEDS ORDERED: LIDOCAINE 1% INJ 20 ML 20 ML VIAL ONE (10:32)
[2018-09-19] MEDS ORDERED: MIDAZOLAM 5 MG/5 ML (VERSED) VIAL ONE (10:42)
[2018-09-19] MEDS ORDERED: fentaNYL INJECTION 100 MCG/2 ML AMP ONE (10:42)
[2018-09-19] MEDS ORDERED: HEParin 1000 UNIT/ML (10ML VIAL) FOR BOLUS ONE (11:30)
[2018-09-19] MEDS ORDERED: NITRO DRIP 25000 MCG/D5W 250 ML IV ONE (11:30)
--- NOTE | 2018-09-19 12:03 | Cardiology Progress Note ---
Cardiology SOAP Progress Note Subjective: No further chest pain. Right wrist pain is also better. Objective: I&O/Vital Signs 09/19/18 09/19/18 09/19/18 09/19/18 01:00 04:00 04:00 07:00 Pulse 95 74 75 Resp 23 16 B/P (MAP) 119/64 (82) 120/61 (80) Pulse Ox 96 95 O2 Delivery Room Air Nasal Cannula Nasal Cannula O2 Flow Rate 2.00 2.00 09/19/18 09/19/18 09/19/18 09/19/18 07:15 07:55 09:00 10:00 Temp 98.4 Pulse 72 68 72 70 Resp 19 14 9 B/P (MAP) 120/61 (80) 112/58 (76) 133/64 (87) Pulse Ox 97 94 97 O2 Delivery Nasal Cannula Nasal Cannula Nasal Cannula O2 Flow Rate 2.00 2.00 2.00 09/19/18 00:00 Intake Total 170 ml Output Total 1000 ml Balance -830 ml Weight (Pounds): 156 Weight (Ounces): 1.0 Weight (Calculated Kilograms): 70.181923 Constitutional: appears stated age, AAO x 3; No apparent distress; well- developed, well-nourished Respiratory: No accessory muscle use, No respiratory distress, No chest tender , No chest expansion is symmetric; chest is bilaterally symmetric; No lungs clear to percussion; lungs clear to auscultation; No crackles, No rhonchi, No rales, No stridor, No wheezing, No pleural rub, No other Cardiovascular: regular rate-rhythm; No irregularly irregular, No extra beats, No parasternal heave is noted, No JVD, No edema, No bradycardia, No tachycardia , No point of maximal impulse, No cardiac thrills are palpable; S1 and S2; No gallop/S3, No gallop/S4, No diastolic murmur; systolic murmur; No friction rub, No click, No other Gastrointestional: No tender, No soft, No round, No distended, No pulsatile mass, No organomegaly, No guarding, No rebound, No tenderness, No hernia, No mass, No audible bowel sounds, No abnormal bowel sounds, No abdominal bruits, No spleenomegaly, No other Extremities: No normal range of motion, No non-tender, No normal inspection, No pedal edema, No calf tenderness, No normal capillary refill, No pelvis stable , No calf tenderness; inflammation; No pedal edema, No slow capillary refill; swelling; No other, No abrasion, No clubbing, No cyanosis, No ecchymosis, No laceration, No no lower extremity edema bilateral, No significant edema, No tenderness, No wound Neurologic/Psychiatric: no motor/sensory deficits, alert, normal mood/affect, oriented x 3, power is 5/5 both on sides Skin: No normal color, No warm/dry, No cyanosis, No cool, No diaphoresis, No damp, No ecchymosis, No jaundice, No mottled, No pallor, No rash, No tattoos/ piercings, No ulcerations, No rash on exposed areas, No ulcerations on exposed areas, No other Results/Procedures: Labs Laboratory Tests 09/18/18 17:03: Troponin I 2.590*H 09/18/18 23:03: Troponin I 3.024*H 09/19/18 03:07: White Blood Count 13.7H, Red Blood Count 4.30L, Hemoglobin 12.5, Hematocrit 39, Mean Corpuscular Volume 91, Mean Corpuscular Hemoglobin 29, Mean Corpuscular Hemoglobin Concent 32, Red Cell Distribution Width 13.0, Platelet Count 176, Mean Platelet Volume 10.9H, Neutrophils (%) (Auto) 82H, Lymphocytes (%) (Auto) 5L, Monocytes (%) (Auto) 14H, Eosinophils (%) (Auto) 0, Basophils (%) (Auto) 0, Neutrophils # (Auto) 11.2H, Lymphocytes # (Auto) 0.6L, Monocytes # (Auto) 1.9H, Eosinophils # (Auto) 0.0, Basophils # (Auto) 0.0, Erythrocyte Sedimentation Rate 46H, Sodium Level 139, Potassium Level 3.8, Chloride Level 105, Carbon Dioxide Level 23, Anion Gap 11, Blood Urea Nitrogen 31H, Creatinine 1.21, Estimat Glomerular Filtration Rate 43, BUN/Creatinine Ratio 26, Glucose Level 137H, Calcium Level 9.2, Corrected Calcium 9.4, Total Bilirubin 0.7, Aspartate Amino Transf (AST/SGOT) 31, Alanine Aminotransferase (ALT/SGPT) 13, Alkaline Phosphatase 71, C-Reactive Protein High Sensitivity 9.43H, Total Protein 6.7, Albumin 3.7 A/P: Assessment/Dx: Non-STEMI, Inflammation right wrist, Hyperlipidemia, Hypertension, Paroxysmal atrial fibrillation Plan: Non-STEMI, aspirin, Brilinta, Lovenox last dose last night. Coronary angiography today. Informed consent taken. Inflammation right wrist, we'll defer to the primary team. Hyperlipidemia, continue statin therapy. Hypertension, continue outpatient medical therapy. Paroxysmal atrial fibrillation, on Xarelto. Will restart tonight if no bleeding in the groin. Thank you for your consultation. Please call me if you have any questions. Delfina Laguerre MD, FACP, FACC, FSCAI, FHRS, CCDS Interventional Cardiology Cardiac Electrophysiology Vascular Medicine and Endovascular Interventions Jose LAGUERRE MD Sep 19, 2018 12:03
--- NOTE | 2018-09-19 12:03 | Cardiac Procedure Note-CS/ASA ---
Pre-Procedure Note Pre-Op Procedure Note H&P Reviewed The H&P was reviewed, patient examined and no changes noted. Date H&P Reviewed: Sep 19, 2018 Time H&P Reviewed: 10:30 Conscious Sedation Pre-Proced Time 10:30 ASA Score 3 For ASA 3 and 4: Consider anesthesia and medical clearance. Also, for patients with a history of failed moderate sedation consider anesthesia. Airway Lungs Heart ASA score ASA 1: a normal healthy patient ASA 2: a patient with a mild systemic disease (mid diabetes, controlled hypertension, obesity ASA 3: a patient with a severe systemic disease that limits activity (angina , COPD, prior Myocardial infarction) ASA 4: a patient with an incapacitating disease that is a constant threat to life (CHF, renal failure) ASA 5: a moribund patient not expected to survive 24 hrs. (ruptured aneurysm) ASA 6: a declared brain patient whose organs are being harvested. For emergent operations, add the letter E after the classification Mallampati Classification Grade 1 Sedation Plan Analgesia, Amnesia, Plan communicated to team members, Discussed options with patient/fam, Discussed risks with patient/fam The patient is an appropriate candidate to undergo the planned procedure, sedation, and anesthesia. The patient immediately re-assessed prior to indication. Jose JONES MD Sep 19, 2018 12:03
--- NOTE | 2018-09-19 12:11 | Coronary Angiography & PCI ---
Coronary Angiography & PCI DATE OF PROCEDURE: 09/19/18 INDICATION: Non-STEMI. PREOPERATIVE DIAGNOSIS: Non-STEMI. POSTOPERATIVE DIAGNOSIS: Severe mid LAD stenosis treated with drug-eluting stent. HISTORY: This is a 82-year-old lady with previous history of ME and PCI to the LAD. She presented with non-STEMI. Therefore, the patient was scheduled for coronary angiography. PROCEDURES PERFORMED: 1.Coronary angiography. 2.Left heart catheterization. 3.PCI to the mid LAD with drug-eluting stent. 4. Abdominal aortogram with bilateral lower extremity runoff. COMPLICATIONS: None. SPECIMENS: None. ESTIMATED BLOOD LOSS: 10 mL ANESTHESIA: Conscious sedation ANTICOAGULATION: IV heparin CONTRAST: 139 mL. FLUOROSCOPY: 6.13 minutes. FLOUROSCOPY DOSE: 288 mgy. PROCEDURE DETAILS: The patient is a 82 female and was brought to the laboratory asst after informed consent was taken. All the risks and complications were explained in detail; this included the risk of bleeding, vascular damage, stroke , ME and even . The patient was draped and prepped in the usual sterile fashion. Right radial access was not used since the patient had significant inflammatory process involving the right wrist. Access was gained in the right femoral artery with a 5 Argentine sheath. Left heart catheterization in the RCA was cannulated with a JR4 catheter. Left coronary system was cannulated with a JL4 catheter. Abdominal aortogram and bilateral lower extremity runoff was performed with a pigtail catheter. This was done since the JL4 catheter was advanced in the iliac and distal abdominal aorta for a short period without the wire. FINDINGS: 1.Left main: Patent. 2.LAD: Patent stents in the proximal segment. Severe stenosis noted just distal to the most distal stent. Stenosis severity 99 percent. CORA 2 flow. 3.Left circumflex artery: Patent. 4.RCA: Patent. 5.Left heart catheterization: LV pressure 100/3 mmHg. LVEDP 2 mmHg. Aortic pressure 99/52 mmHg. Normal LV function with no wall motion abnormalities. No gradient across the aortic valve. 6. Abdominal aortogram with bilateral lower extremity runoff: This was done since the JL4 catheter was advanced in the iliac and distal abdominal aorta for a short period without the wire. Mild disease noted in the distal abdominal aorta. Nonselective angiogram of bilateral renal artery shows patent renal arteries. No significant disease noted bilaterally in the common iliac, external iliac, common femoral, superficial femoral arteries. No vascular complication was noted in the right lower extremity. RECOMMENDATIONS: PCI to the mid LAD is is recommended. INTERVENTION DETAILS: 5 Argentine sheath was exchanged for a 6 Argentine sheath. JL4 guide catheter, BMW guidewire, IV heparin was used for anticoagulation. ACT was done once which was over 240 seconds. The lesion was easily crossed with a BMW wire. The lesion was direct stented with a Xience Stephania 2.25 x 8 mm drug-eluting stent which was deployed at 16 jesica for 32 seconds. The stent balloon was then pulled back just a little bit and the overlap zone was postdilated at 18 jesica for 30 seconds. No residual stenosis with CORA-3 flow. Excellent results. RFA was closed with the Mynx device. CONCLUSIONS: 1. Patent stent in the proximal LAD. Severe stenosis just distal to the most distal LAD stent. Successful PCI with drug-eluting stent. 2. Continue aspirin, Brilinta, Xarelto (PAF) for one month. Likely continue Brilinta and Xarelto lifelong. Defer further management to Dr. Medina as an outpatient. 3. Continue aggressive secondary prevention measures. Delfina Laguerre MD, FACP, FACC, [facility] Interventional Cardiology Jose LAGUERRE MD Sep 19, 2018 12:11
[2018-09-19] MEDS ORDERED: PATIENT MAY USE OWN MEDS, ALL PO SCH (12:15)
[2018-09-19] MEDS: NS IV 1000 ML 1,000 ML IV SCH (12:49)
[2018-09-19] MEDS: predniSONE 5 MG TAB PO SCH (14:55)
--- NOTE | 2018-09-19 20:05 | NUR ---
This RN went into patient room to check groin from heart cath earlier this date. Patients bandage is saturated. Pressure is held with Katie RN for 15 minutes. Patient tolerates well. Dressing is changed and sandbag is reapplied. Will continue to monitor.
[2018-09-19] MEDS: IBUPROFEN TABLET 200 MG TAB PO PRN (20:59)
[2018-09-19] MEDS ORDERED: ROSUVASTATIN 5 MG (CRESTOR) TABLET PO SCH (21:00)
[2018-09-20] VITALS (9 sets, daily range): BP systolic 108–152; BP diastolic 48–68
[2018-09-20] MEDS: ENOXAPARIN 80 MG/0.8 ML (LOVENOX) SYR SC SCH ×2 (00:17→09:01)
[2018-09-20 03:32] LABS: HEMOGLOBIN 9.9 G/DL (11.5-16.0); MEAN PLATELET VOLUME 11.3 FL (7.4-10.4); RED BLOOD COUNT 3.27 10^6/uL (4.35-5.85); RED CELL DISTRIBUTION WIDTH 13.3 % (10.0-14.5); WHITE BLOOD COUNT 12.1 10^3/uL (4.3-11.0)
[2018-09-20 03:53] LABS: CALCIUM 8.3 MG/DL (8.5-10.1); CREATININE SERUM 1.08 MG/DL (0.60-1.30); POTASSIUM 4.2 MMOL/L (3.6-5.0)
[2018-09-20] MEDS: CATHETER FLUSH 10 ML SYR IV SCH ×2 (07:38→13:33)
[2018-09-20] MEDS: NS IV 1000 ML 1,000 ML IV SCH ×2 (07:38→09:02)
[2018-09-20] MEDS: TICAGRELOR 90 MG TABLET (BRILINTA) PO SCH (09:00)
[2018-09-20] MEDS: predniSONE 5 MG TAB PO SCH (09:00)
[2018-09-20] MEDS ORDERED: ASPIRIN E.C. 81 MG (ECOTRIN) TAB PO SCH (09:00)
--- NOTE | 2018-09-20 09:35 | Progress Note (SOAP) ---
Subjective Date Seen by a Provider: Sep 20, 2018 Time Seen by a Provider: 09:28 Subjective/Events-last exam Patient states that her right wrist pain has improved. She also admits to a similar attack of the left arm, last year, which she was prescribe prednisone for Review of Systems General: No Chills, No Night Sweats Neurological: No: Weakness, Numbness Objective Exam Vital Signs Date Time Temp Pulse Resp B/P (MAP) Pulse Ox O2 Delivery O2 Flow Rate FiO2 09/20/18 08:00 75 10 120/62 (81) 99 Room Air 09/20/18 07:00 80 09/20/18 04:00 Room Air 09/20/18 04:00 66 16 152/65 (94) Room Air 09/20/18 01:00 75 09/20/18 00:00 Room Air 09/20/18 00:00 72 13 136/67 (90) 97 Room Air 09/19/18 21:00 94 Room Air 09/19/18 20:00 76 14 132/65 (87) 98 Room Air 09/19/18 20:00 Room Air 09/19/18 19:00 75 12 139/78 (98) 98 Room Air 09/19/18 19:00 75 09/19/18 18:00 84 15 110/79 (89) Room Air 09/19/18 17:00 81 10 92/52 (65) 97 Room Air 09/19/18 16:45 84 13 98/55 (69) 97 Room Air 09/19/18 16:00 82 13 83/40 (54) 95 Room Air 09/19/18 16:00 Room Air 09/19/18 15:00 72 7 107/75 (86) 90 Room Air 09/19/18 14:30 71 11 127/79 (95) 100 Room Air 09/19/18 14:00 76 12 112/78 (89) Room Air 09/19/18 13:45 80 18 130/72 (91) 100 Room Air 09/19/18 13:30 73 10 114/75 (88) 100 Room Air 09/19/18 13:15 76 18 115/88 (97) 90 Room Air 09/19/18 13:12 78 09/19/18 13:00 80 8 114/77 (89) 97 Room Air 09/19/18 12:45 75 14 105/57 (73) 95 Room Air 09/19/18 12:00 Room Air 09/19/18 10:00 70 9 133/64 (87) 97 Room Air I & O 09/20/18 07:00 Intake Total 900 ml Output Total 950 ml Balance -50 ml Capillary Refill : Less Than 3 Seconds General Appearance: No Apparent Distress Cardiovascular: No Edema, Normal Peripheral Pulses Extremity: Other (Right wrist- No swelling present. Moderate calor and rubor present. Mild pain with ROM, No ascending erythema. 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 Norm as Tested Results Lab Laboratory Tests 09/20/18 03:01: White Blood Count 12.1H, Red Blood Count 3.27L, Hemoglobin 9.9#L, Hematocrit 31L , Mean Corpuscular Volume 95, Mean Corpuscular Hemoglobin 30, Mean Corpuscular Hemoglobin Concent 32, Red Cell Distribution Width 13.3, Platelet Count 157, Mean Platelet Volume 11.3H, Sodium Level 140, Potassium Level 4.2, Chloride Level 111H, Carbon Dioxide Level 19L, Anion Gap 10, Blood Urea Nitrogen 36H, Creatinine 1.08, Estimat Glomerular Filtration Rate 49, BUN/Creatinine Ratio 33 , Glucose Level 124H, Calcium Level 8.3L Assessment/Plan Assessment/Plan Assess & Plan/Chief Complaint Right wrist pain The patient appears to be responding well to prednisone, and wrist splinting. No change in treatment at this time. Patient is reliable enough to seek medial evaluation if she is discharged and her symptoms worsen. Clinical Quality Measures DVT/VTE Risk/Contraindication: Risk Factor Score Per Nursin RFS Level Per Nursing on Admit: 2=Moderate IAM TIWARI Sep 20, 2018 09:35
[2018-09-20] MEDS ORDERED: NON-FORMULARY MEDICATION 1 EA EA (Cranberry Extract (Cranberry) 500 MG) PO SCH (12:00)
[2018-09-20] MEDS ORDERED: IBUP-2185 PO (12:43)
--- NOTE | 2018-09-20 12:45 | Discharge Summary-Hospitalist ---
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 Hyperlipidemia History of recurrent UTI Plan: Home medications Pain control Right wrist brace Appreciate cardiology and orthopedic surgery expertise Discharge Diagnosis (1) NSTEMI (non-ST elevated myocardial infarction) Status: Acute (2) Status post insertion of drug-eluting stent into left anterior descending ( LAD) artery Status: Acute (3) Right wrist pain Status: Acute (4) Recurrent UTI Status: Chronic (5) Atrophic vaginitis Status: Chronic (6) Paroxysmal atrial fibrillation Status: Chronic (7) Current use of longterm anticoagulation Status: Chronic (8) Inflammatory arthritis Status: Acute Assessment & Plan: right wrist (9) Hallucinations Status: Resolved Assessment & Plan: Due to prednisone Discharge Summary Discharge Physical Exam Allergies: Coded Allergies: Penicillins (Unverified Allergy, Mild, 04/19/09) Vitals & I&Os Vital Signs Date Time Temp Pulse Resp B/P (MAP) Pulse Ox O2 Delivery O2 Flow Rate FiO2 09/20/18 12:04 92 12 108/48 (68) 97 Room Air 09/20/18 12:00 97.0 09/19/18 17:00 General Appearance: No Apparent Distress, WD/WN Respiratory: Chest Non Tender, Lungs Clear, Normal Breath Sounds, No Accessory Muscle Use, No Respiratory Distress Cardiovascular: Regular Rate, Rhythm, No Edema, No Gallop, No JVD, No Murmur, Normal Peripheral Pulses Neurologic/Psychiatric: Alert, Oriented x3, No Motor/Sensory Deficits, Normal Mood/Affect Hospital Course Was the Problem List Reviewed?: Yes Hospital course: Patient had an uneventful hospital course. She was admitted monitor closely elevated troponin require cardiac catheter with stent placed. Patient tolerated the procedure well. Right wrist pain required x-rays and labs and orthopedic surgery consultation. Patient placed on steroids which improved the status but caused hallucinations so that was stopped and patient placed on low dose ibuprofen. 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 All med changes to cardiac meds were performed by cardiology. Labs (last 24 hrs) Laboratory Tests 09/20/18 03:01: White Blood Count 12.1H, Red Blood Count 3.27L, Hemoglobin 9.9#L, Hematocrit 31L , Mean Corpuscular Volume 95, Mean Corpuscular Hemoglobin 30, Mean Corpuscular Hemoglobin Concent 32, Red Cell Distribution Width 13.3, Platelet Count 157, Mean Platelet Volume 11.3H, Sodium Level 140, Potassium Level 4.2, Chloride Level 111H, Carbon Dioxide Level 19L, Anion Gap 10, Blood Urea Nitrogen 36H, Creatinine 1.08, Estimat Glomerular Filtration Rate 49, BUN/Creatinine Ratio 33 , Glucose Level 124H, Calcium Level 8.3L Patient resulted labs reviewed. Discussion & Recommendations Discharge Planning: <30 minutes discharge planning Discharge Home Medications: Active Scripts Active Ibuprofen 200 Mg Capsule 200 Mg PO TID Reported Rosuvastatin Calcium 5 Mg Tablet 5 Mg PO HS Vitamin D3 (Cholecalciferol (Vitamin D3)) 1,000 Unit Capsule 1,000 Unit PO 1200 Metoprolol Succinate 25 Mg Tab.er.24h 25 Mg PO HS Lisinopril 5 Mg Tablet 5 Mg PO DAILY Xarelto (Rivaroxaban) 15 Mg Tablet 15 Mg PO 1800 Cranberry (Cranberry Extract) 500 Mg Tablet 500 Mg PO 1200 Frederick 3 500 Softgel (Frederick-3/Dha/Epa/Fish Oil) 1 Each Capsule 2 Cap PO BID Furosemide 20 Mg Tablet 20 Mg PO DAILY Potassium Chloride 10 Meq Tablet.er 10 Meq PO DAILY Aspirin EC (Aspirin) 81 Mg Tablet.dr 81 Mg PO HS Instructions to patient/family Please see electronic discharge instructions given to patient. Clinical Quality Measures DVT/VTE Risk/Contraindication: Risk Factor Score Per Nursin RFS Level Per Nursing on Admit: 2=Moderate GORDO OVERTON DO Sep 20, 2018 12:45
[2018-09-20] MEDS ORDERED: TICA90TA PO (13:53)
--- NOTE | 2018-09-20 13:56 | Cardiology Progress Note ---
Cardiology SOAP Progress Note Subjective: No further chest pain. Objective: I&O/Vital Signs 09/20/18 09/20/18 09/20/18 09/20/18 04:00 04:00 07:00 08:00 Pulse 66 80 Resp 16 B/P (MAP) 152/65 (94) O2 Delivery Room Air Room Air Room Air 09/20/18 09/20/18 09/20/18 09/20/18 08:00 08:00 09:00 09:00 Temp 96.5 Pulse 75 84 Resp 10 11 B/P (MAP) 120/62 (81) 125/57 (79) Pulse Ox 99 99 96 O2 Delivery Room Air Room Air Room Air 09/20/18 09/20/18 09/20/18 09/20/18 10:00 11:00 12:00 12:00 Temp 97.0 Pulse 74 85 Resp 11 18 B/P (MAP) 144/68 (93) 134/53 (80) Pulse Ox 98 98 O2 Delivery Room Air Room Air Room Air 09/20/18 12:04 Pulse 92 Resp 12 B/P (MAP) 108/48 (68) Pulse Ox 97 O2 Delivery Room Air 09/20/18 00:00 Intake Total 900 ml Output Total 950 ml Balance -50 ml Weight (Pounds): 152 Weight (Ounces): 8.0 Weight (Calculated Kilograms): [id number] Side: right Groin site without hematoma: Yes Bruising: mild bruising Constitutional: appears stated age, AAO x 3; No apparent distress; well- developed, well-nourished Respiratory: No accessory muscle use, No respiratory distress, No chest tender , No chest expansion is symmetric; chest is bilaterally symmetric; No lungs clear to percussion; lungs clear to auscultation; No crackles, No rhonchi, No rales, No stridor, No wheezing, No pleural rub, No other Cardiovascular: regular rate-rhythm; No irregularly irregular, No extra beats, No parasternal heave is noted, No JVD, No edema, No bradycardia, No tachycardia , No point of maximal impulse, No cardiac thrills are palpable; S1 and S2; No gallop/S3, No gallop/S4, No diastolic murmur; systolic murmur; No friction rub, No click, No other Gastrointestional: No tender, No soft, No round, No distended, No pulsatile mass, No organomegaly, No guarding, No rebound, No tenderness, No hernia, No mass, No audible bowel sounds, No abnormal bowel sounds, No abdominal bruits, No spleenomegaly, No other Extremities: No normal range of motion, No non-tender, No normal inspection, No pedal edema, No calf tenderness, No normal capillary refill, No pelvis stable , No calf tenderness; inflammation; No pedal edema, No slow capillary refill; swelling; No other, No abrasion, No clubbing, No cyanosis, No ecchymosis, No laceration, No no lower extremity edema bilateral, No significant edema, No tenderness, No wound Neurologic/Psychiatric: no motor/sensory deficits, alert, normal mood/affect, oriented x 3, power is 5/5 both on sides Skin: No normal color, No warm/dry, No cyanosis, No cool, No diaphoresis, No damp, No ecchymosis, No jaundice, No mottled, No pallor, No rash, No tattoos/ piercings, No ulcerations, No rash on exposed areas, No ulcerations on exposed areas, No other Results/Procedures: Labs Laboratory Tests 09/20/18 03:01: White Blood Count 12.1H, Red Blood Count 3.27L, Hemoglobin 9.9#L, Hematocrit 31L , Mean Corpuscular Volume 95, Mean Corpuscular Hemoglobin 30, Mean Corpuscular Hemoglobin Concent 32, Red Cell Distribution Width 13.3, Platelet Count 157, Mean Platelet Volume 11.3H, Sodium Level 140, Potassium Level 4.2, Chloride Level 111H, Carbon Dioxide Level 19L, Anion Gap 10, Blood Urea Nitrogen 36H, Creatinine 1.08, Estimat Glomerular Filtration Rate 49, BUN/Creatinine Ratio 33 , Glucose Level 124H, Calcium Level 8.3L A/P: Assessment/Dx: Non-STEMI, Inflammation right wrist, Hyperlipidemia, Hypertension, Paroxysmal atrial fibrillation Plan: Non-STEMI, aspirin, Brilinta. Coronary angiography revealed severe mid LAD stenosis which was treated with a drug-eluting stent. I will recommended the patient continue an aspirin, Brilinta and Xarelto for one month. And then aspirin is discontinued and patient continues on Brilinta and Xarelto long- term. However if there is any concern of bleeding then aspirin can be discontinued earlier, however Brilinta needs to be continued long-term. Patient will also continue on a beta judith, statin and PERLA inhibitor. Inflammation right wrist, we'll defer to the primary team. Hyperlipidemia, continue statin therapy. Hypertension, continue beta judith and lisinopril. Paroxysmal atrial fibrillation, on Xarelto. Currently in sinus rhythm. Patient will follow up with Dr. Medina and Dr. Hernandez as an outpatient. Thank you for your consultation. Please call me if you have any questions. Delfina Laguerre MD, FACP, FACC, FSCAI, FHRS, CCDS Interventional Cardiology Cardiac Electrophysiology Vascular Medicine and Endovascular Interventions Jose LAGUERRE MD Sep 20, 2018 13:56
--- NOTE | 2018-09-22 17:18 | Physician Query Clarification ---
PQ-CHF Specificity The medical record reflects the following clinical scenario: History/Risk Factors: CHF Clinical Findings: NSTEMI, HTN Treatment: Stent Question: Can you further specify the acuity &/or type of CHF per the clinical indicators above? Please document a response below CHF listed on ED record, with no further mention in chart. PHYSICIAN RESPONSE Acuity: Chronic Type: Diastolic In responding to this query, please exercise your independent professional judgment. The purpose of this communication is to more accurately reflect the complexity of your patients condition. The fact that a question is asked does not imply that any particular answer is desired or expected. Thank you for your timely response to this clarification. Requestors name: [ ] Phone # [ ] THIS PHYSICIAN QUERY FORM IS A PERMANENT PART OF THE MEDICAL RECORD ISIDRA CROWE Sep 22, 2018 17:18 GORDO OVERTON DO Sep 22, 2018 20:13
== END 2018-09-20 15:30 | disposition home or self-care (01) | DRG 247 ==
LOC: EDUNIT# 10:48 → ER 10:48 → ICU 12:54
PROVIDERS: ADMIT Internal Medicine Interventional Cardiology; ATTEND Internal Medicine Interventional Cardiology
PROC: 027034Z Dilation of Coronary Artery, One Artery with Drug-eluting Intraluminal Device, Percutaneous Approach (ICD-10-PCS; principal; 2018-09-19)
PROC: 4A023N7 Measurement of Cardiac Sampling and Pressure, Left Heart, Percutaneous Approach (ICD-10-PCS; 2018-09-19)
PROC: B2111ZZ Fluoroscopy of Multiple Coronary Arteries using Low Osmolar Contrast (ICD-10-PCS; 2018-09-19)
PROC: B4101ZZ Fluoroscopy of Abdominal Aorta using Low Osmolar Contrast (ICD-10-PCS; 2018-09-19)
PROC: B41F1ZZ Fluoroscopy of Right Lower Extremity Arteries using Low Osmolar Contrast (ICD-10-PCS; 2018-09-19)
PROC: B41G1ZZ Fluoroscopy of Left Lower Extremity Arteries using Low Osmolar Contrast (ICD-10-PCS; 2018-09-19)
DX: I21.4 Non-ST elevation (NSTEMI) myocardial infarction (principal); I25.10 Atherosclerotic heart disease of native coronary artery without angina pectoris; I11.0 Hypertensive heart disease with heart failure; I50.32 Chronic diastolic (congestive) heart failure; M19.031 Primary osteoarthritis, right wrist; I48.0 Paroxysmal atrial fibrillation; N95.2 Postmenopausal atrophic vaginitis; I25.2 Old myocardial infarction; E78.00 Pure hypercholesterolemia, unspecified; K21.9 Gastro-esophageal reflux disease without esophagitis; E78.5 Hyperlipidemia, unspecified; Z85.828 Personal history of other malignant neoplasm of skin; Z95.5 Presence of coronary angioplasty implant and graft; Z88.0 Allergy status to penicillin; Z87.440 Personal history of urinary (tract) infections; Z79.01 Long term (current) use of anticoagulants
CPT/HCPCS: 36415; 71046; 73110; 80048; 80053; 84484; 84550; 85007; 85025; 85027; 85347; 85652; 86141; 93005; 93306; 93458; 96372; 96374; 96375

== ENCOUNTER → 2019-04-07 | Day surgery (SDC) | payer MEDICARE, OTHER ==
[~2019-04-07] VITALS: Ht 165.1 cm; Wt 69.9 kg
[~2019-04-07] MED LIST changes: +CHOL10007 PO; +CRAN500T2 PO; +DRON400T2 PO; +IBUP-2185 PO; +IBUP-30 PO; +LIDOCAINE 1% INJ 20 ML 20 ML VIAL ONE; +LISI-556 PO; +METO-387 PO; +OMEG-141 PO; +RIVA15TA2 PO; +ROSU5TAB13 PO; +TICA90TA PO
[2019-04-07 08:58] VITALS: BP 137/79
--- NOTE | 2019-04-07 13:22 | Implantation of Loop Monitor ---
Implant of Loop Monitior IMPLANTATION OF LOOP MONITOR REPORT DATE OF PROCEDURE: 04/07/19 PREOP DIAGNOSIS: paroxysmal atrial fibrillation POSTOP DIAGNOSIS: paroxysmal atrial fibrillation PROCEDURE DETAILS: The patient is a 83 female with history of paroxysmal atrial fibrillation requiring long-term surveillance. Therefore implantable loop recorder was discussed and agreed with the patient. Informed consent was taken. All risks and complications were discussed at length. The patient was draped and prepped in the usual sterile fashion. Local anesthesia was lidocaine, which was given in the substernal area close to the 4th intercostal space. Loop monitor [employer] with serial number [id number] was implanted according to the protocol. Steri- Strips were placed at the end of the procedure. There were no complications and the patient tolerated the procedure well. The device was interrogated with a voltage of. ANESTHESIA: Local anesthesia with lidocaine. COMPLICATIONS: None CONTRAST/FLUOROSCOPY: None CONCLUSION: successful implantation of loop recorder with no complication FINAL DIAGNOSIS: Paroxysmal atrial fibrillation Coronary artery disease VERÓNICA MENDEZ MD Apr 07, 2019 13:22
== END | disposition home or self-care (01) ==
LOC: CATH 08:29
PROVIDERS: ATTEND Internal Medicine Cardiovascular Disease
DX: I48.0 Paroxysmal atrial fibrillation (principal); I25.10 Atherosclerotic heart disease of native coronary artery without angina pectoris; I65.23 Occlusion and stenosis of bilateral carotid arteries; I10 Essential (primary) hypertension; E78.5 Hyperlipidemia, unspecified; I34.0 Nonrheumatic mitral (valve) insufficiency; I25.2 Old myocardial infarction; M81.0 Age-related osteoporosis without current pathological fracture; R60.0 Localized edema; Z79.02 Long term (current) use of antithrombotics/antiplatelets; Z79.899 Other long term (current) drug therapy; Z95.5 Presence of coronary angioplasty implant and graft; Z87.891 Personal history of nicotine dependence
CPT/HCPCS: 33285

== ENCOUNTER 2019-04-19 17:02 | Inpatient (IN) | payer MEDICARE, OTHER ==
[~2019-04-19] VITALS: Ht 165.1 cm; Wt 70.5 kg
[~2019-04-19 17:02] MED LIST changes: -DRON400T2 PO; -IBUP-30 PO; -LIDOCAINE 1% INJ 20 ML 20 ML VIAL ONE
[2019-04-19 17:15] VITALS: BP 139/87
[2019-04-19] MEDS ORDERED: CLOP75TA28 PO (17:46)
[2019-04-19 18:00] VITALS: BP 127/91
[2019-04-19] MEDS: RIVAROXABAN 15 MG TABLET (XARELTO) PO SCH (18:18)
[2019-04-19 19:00] VITALS: BP 137/76
[2019-04-19 20:00] VITALS: BP 111/67
[2019-04-19] MEDS: ROSUVASTATIN 5 MG (CRESTOR) TABLET PO SCH (20:45)
[2019-04-19] MEDS: SOTALOL 80 MG (BETAPACE) TAB PO SCH (20:45)
[2019-04-20] VITALS: BP 100/65
[2019-04-20 03:49] LABS: HEMOGLOBIN 12.1 G/DL (11.5-16.0); MEAN PLATELET VOLUME 10.9 FL (7.4-10.4); RED CELL DISTRIBUTION WIDTH 14.7 % (10.0-14.5); WHITE BLOOD COUNT 6.6 10^3/uL (4.3-11.0)
[2019-04-20 04:00] VITALS: BP 113/76
[2019-04-20 04:11] LABS: ALBUMIN 3.3 GM/DL (3.2-4.5); BILIRUBIN,TOTAL 0.4 MG/DL (0.1-1.0); CALCIUM 8.8 MG/DL (8.5-10.1); CREATININE SERUM 1.15 MG/DL (0.60-1.30); POTASSIUM 4.2 MMOL/L (3.6-5.0); TOTAL PROTEIN 5.7 GM/DL (6.4-8.2)
--- NOTE | 2019-04-20 07:47 | Cardiology History & Physical ---
HPI-Cardiology Cardiology Consultation Date of Consultation 04/20/19 Date of Admission Time Seen by Provider: 07:45 Indication: atrial fibrillation HPI 83 years old lady with history of coronary artery disease, paroxysmal atrial fibrillation, failed multiple medications in the past. Has been having persistent atrial fibrillation and increasing shortness of breath. She was admi tted to the hospital for loading with sotalol and attempting to do cardioversion. She denied any chest pain. No syncope or near syncopal episodes. No claudications. PMH-Cardiology Immunizations Up To Date Date of Pneumonia Vaccine: Jun 01, 2018 Date of Influenza Vaccine: May 19, 2018 Seasonal Allergies Seasonal Allergies: No Surgeries Yes (cardiac stents) Hysterectomy, Tubal Ligation Respiratory No Cardiovascular Yes Heart Attack, Coronary Artery Disease Neurological No Reproductive System Hx Reproductive Disorders: No Genitourinary Yes Bladder Infection, UTI-Chronic Gastrointestinal No Gastroesophageal Reflux Musculoskeletal No Osteoporosis Endocrine No HEENT Yes (b/l eyes) Cataract Cancer No Psychosocial Yes Anxiety Integumentary No Blood Transfusions No Adverse Rxn to Transfusion: No Social History Patient Social History Employed/Student: retired Alcohol Use: Denies Use Recreational Drug Use: No Smoking: Never smoker Recent Foreign Travel: No Contact w/other who traveled: No Recent Infectious Disease Expo: No Family Hx Significant Family History: Heart Disease Other noncontributory ROS-Cardiology Review of Systems General: No Chills, No Night Sweats, No Fatigue, No Malaise, No Appetite HEENT: No Head Aches, No Visual Changes, No Eye Pain, No Ear Pain, No Dysphasia, No Sinus Congestion, No Post Nasal Drip, No Sore Throat Pulmonary: Dyspnea; No Cough, No Pleuritic Chest Pain Cardiovascular: No: Chest Pain, Palpitations, Orthopnea, Paroxysmal Noc. Dyspnea, Edema, Lt Headedness Gastrointestinal: No: Nausea, Vomiting, Abdominal Pain, Diarrhea, Constipation, Melena, Hematochezia Genitourinary: No Dysuria, No Frequency, No Incontinence, No Hematuria, No Retention Musculoskeletal: No: neck pain, shoulder pain, arm pain, back pain, hand pain, leg pain, foot pain Neurological: No: Weakness, Numbness, Incoordination, Change in speech, Confusion, Seizures Home Medications & Allergies Allergies: Coded Allergies: Penicillins (Unverified Allergy, Mild, 04/19/09) Home Medication List Reviewed: Yes Exam-Cardiology Vital Signs Vital Signs Date Time Temp Pulse Resp B/P (MAP) Pulse Ox O2 Delivery O2 Flow Rate FiO2 04/20/19 07:00 85 04/20/19 04:32 99 Room Air 04/20/19 04:32 97.4 04/20/19 04:00 43 113/76 (88) Exam General Appearance: Alert, Oriented X3, Cooperative, No Acute Distress HEENT: Atraumatic, PERRLA Respiratory: Clear to Auscultation, Normal Air Movement Cardiovascular: Normal S1, Normal S2, Other (atrial fibrillation, systolic murm ur at the left sternal border) Abdominal: Normal Bowel Sounds, Soft, No Tenderness, No Hepatosplenomegaly, No Masses Extremities: No Clubbing, No Cyanosis, No Edema, Normal Pulses, No Tenderness/Swelling Skin: No Rashes, No Breakdown, No Significant Lesion Neuro: Normal Gait, Normal Speech, Strength at 5/5 X4 Ext, Normal Tone, Sensation Intact Psych/Mental Status: Mental Status NL, Mood NL Results Labs Labs Laboratory Tests 04/20/19 03:20: White Blood Count 6.6, Red Blood Count 4.39, Hemoglobin 12.1, Hematocrit 38, Mean Corpuscular Volume 88, Mean Corpuscular Hemoglobin 28, Mean Corpuscular Hemoglobin Concent 32, Red Cell Distribution Width 14.7H, Platelet Count 188, Mean Platelet Volume 10.9H, Sodium Level 142, Potassium Level 4.2, Chloride Level 109H, Carbon Dioxide Level 23, Anion Gap 10, Blood Urea Nitrogen 31H, Creatinine 1.15, Estimat Glomerular Filtration Rate 45, BUN/Creatinine Ratio 27, Glucose Level 86, Calcium Level 8.8, Corrected Calcium 9.4, Total Bilirubin 0.4, Aspartate Amino Transf (AST/SGOT) 18, Alanine Aminotransferase (ALT/SGPT) 14, Alkaline Phosphatase 77, Total Protein 5.7L, Albumin 3.3, Thyroid Stimulating Ho rmone (TSH) 3.04 A/P-Cardiology Admission Diagnosis Chronic atrial fibrillation Coronary artery disease Shortness of breath Hypertension Admission Status: Inpatient Order (span 2 midnights) Reason for Inpatient Admission: atrial fibrillation, loading with sotalol Assessment/Plan Atrial fibrillation with rapid ventricular rate, status post EROS with successful cardioversion August 2017. Was intolerant to amiodarone secondary to elevated LFTs and increased fatigue. Intolerance to Mexiletine with severe nausea and vomiting. Status post Linq implantation on April 07, 2019. Loop recorder interrogation showing persistent atrial fibrillation, I admitted her to step down unit and started her on sotalol and planning to do EROS with electrical cardioversion. EKG this morning showed borderline QT prolongation, I will monitor closely Coronary artery disease with history of PTCA and stents to LAD in 2009 with cardiac catheterization 09/20/2013 revealing patent stents in the proximal and mid LAD with a step down beyond stent. Mild irregularity at the distal LAD. Mild irregularity the distal circumflex proximal artery. Repeat cardiac catheterization done August 20, 2017 revealed moderate mid LAD disease with negative fractional flow reserve. Patent stents in proximal LAD, had another cardiac catheterization September 2018 after non-ST elevation myocardial infarction resulted in another stent in the distal LAD using Stephania 2.25 x 8 mm with good results. Plavix and Xarelto. Continue to monitor Shortness of breath, no change from baseline, I will evaluate 12-lead EKG and chest x-ray Frequent PVCs with ventricular bigeminy, intolerant to Mexitil, the patient had severe nausea was unable to tolerated and it was discontinued. started on sotalol instead of metoprolol. [id number] score of 5, patient is maintained on Xarelto. Hypertension, controlled. Continue to monitor blood pressure/heart rate. Hyperlipidemia, maintained on Crestor 5 mg daily, lipid profile done in November 2018 showing total cholesterol 160, HDL 56, triglyceride 94, LDL 85. Continue to monitor History of elevated LFTs while on amiodarone and Lipitor. Both medications were discontinued. Currently on Crestor, liver enzymes are back to normal Moderate to moderately severe mitral regurgitation, is referred to [facility], patient underwent repeat EROS revealing moderate mitral regurgitation. No surgery is warranted at this time, repeat echocardiogram was done in September 2018 showed normal LV size and function with ejection fraction 55-65 percent, increased pulmonary artery pressure with estimated peak pressure of 37 mmHg, moderate to severe mitral regurgitation with dilated left atrium measuring 4.3 cm. Continue to monitor Mild bilateral carotid artery stenosis. Last ultrasound was done in June 2018, continue to monitor Recurrent palpitation. Probably secondary to PVC., Reporting improvement. Peripheral edema, reporting improvement. Continue to monitor. Osteoporosis. History of chronic renal insufficiency, renal function are better on this test from December 09, 2017. Clinical Quality Measures DVT/VTE Risk/Contraindication: Risk Factor Score Per Nursin RFS Level Per Nursing on Admit: 4+=Very High VERÓNICA MENDEZ MD Apr 20, 2019 07:47
[2019-04-20 08:00] VITALS: BP 95/49
--- NOTE | 2019-04-20 08:50 | Electrophysiology Consultation ---
HPI-Cardiology Cardiology Consultation: Date of Consultation 04/20/19 Date of Admission Attending Physician Giovana Hernandez DO Admitting Physician Giovana Hernandez DO Consulting Physician Jose LAGUERRE MD HPI: Time Seen by a Provider: 09:00 Chief Complaint: Persistent atrial fibrillation This is a 83-year-old lady whose primary recovery operator helper is Dr. Medina. Patient has history of CAD, status post PCI in generally 2019. Patient has implantable loop recorder and device interrogation showed persistent atrial fibrillation. Previously the patient was on amiodarone resulting in elevated LFTs. Therefore amiodarone was discontinued. Mexiletine was discontinued due to nausea and vomiting. Review of Systems-Cardiology Review of Systems Constitutional: As described under HPI; No As described under HPI, No no symptoms reported, No chills, No fever, No lightheadedness Eyes: No As described under HPI, No no symptoms reported, No blindness, No blurred vision, No contact lenses, No drainage, No decreased acuity, No foreign body sensation, No pain, No vision change Ears/Nose/Throat: No As described under HPI, No no symptoms reported, No chron ic hearing loss, No ear discharge, No ear pain, No nasal drainage, No ulcerations Respiratory: No no symptoms reported; As described under HPI; No As described under HPI, No cough, No orthopnea, No shortness of breath, No SOB with excertion Cardiovascular: No no symptoms reported; As described under HPI; No As described under HPI, No chest pain, No edema, No irregular heart rate, No lightheadedness, No palpitations Gastrointestinal: No no symptoms reported, No As described under HPI, No abdomen distended, No abdominal pain, No blood streaked bowels, No constipation, No diarrhea, No nausea, No vomiting, No stool coloration changes Genitourinary: No As described under HPI, No burning, No dysuria, No discharge, No frequency, No flank pain, No hematuria, No urgency : Yes : No Skin: No rash, No skin related problems, No ulcerations Psychiatric/Neurological: No anxiety, No depression, No seizure, No focal weakness, No syncope Hematologic: No bleeding abnormalities ISE-Lemnsx-Xbfzmu Hx Patient Social History Employed/Student: retired Alcohol Use: Denies Use Recreational Drug Use: No 2nd Hand Smoke Exposure: No Recent Foreign Travel: No Recent Infectious Disease Expo: No Physical Abuse Screen: No Sexual Abuse: No Immunizations Up To Date Date of Pneumonia Vaccine: Jun 01, 2018 Date of Influenza Vaccine: May 19, 2018 Past Medical History PMH As described under Assessment. Allergies and Home Medications Allergies Coded Allergies: Penicillins (Unverified Allergy, Mild, 04/19/09) Home Medications Cholecalciferol (Vitamin D3) 1,000 Unit Capsule, 1,000 UNIT PO 1200, (Reported) Clopidogrel Bisulfate 75 Mg Tablet, 75 MG PO 1200, (Reported) Cranberry Extract 500 Mg Tablet, 500 MG PO 1200, (Reported) Furosemide 20 Mg Tablet, 20 MG PO DAILY, (Reported) Ibuprofen 200 Mg Tablet, 200 MG PO TID PRN for PAIN-MILD, (Reported) Metoprolol Succinate 25 Mg Tab.er.24h, 25 MG PO HS, (Reported) Avon-3/Dha/Epa/Fish Oil 1 Each Capsule, 2 CAP PO BID, (Reported) Potassium Chloride 10 Meq Tablet.er, 10 MEQ PO DAILY, (Reported) Rivaroxaban 15 Mg Tablet, 15 MG PO 1800, (Reported) Rosuvastatin Calcium 5 Mg Tablet, 5 MG PO HS, (Reported) Patient Home Medication List Home Medication List Reviewed: Yes Physical Exam-Cardiology Physical Exam Vital Signs/I&O 04/20/19 04/20/19 04/20/19 04/20/19 04:00 04:32 04:32 07:00 Temp 97.4 Pulse 82 85 Resp 43 B/P (MAP) 113/76 (88) Pulse Ox 93 99 O2 Delivery Room Air Room Air 04/20/19 04/20/19 04/20/19 04/20/19 08:00 08:00 09:00 11:23 Temp 98.1 98.2 Pulse 111 84 Resp 19 16 B/P (MAP) 95/49 (64) 125/78 (94) Pulse Ox 94 99 100 O2 Delivery Room Air Room Air Room Air 04/20/19 12:11 Pulse 79 04/20/19 00:00 Intake Total 220 ml Balance 220 ml Capillary Refill : Constitutional: appears stated age, AAO x 3; No apparent distress; well- developed, well-nourished HEENT: PERRL; No normal ENT inspection, No TMs normal, No pharynx normal, No scleral icterus (R), No scleral icterus (L), No pale conjunctivae (R), No pale conjunctivae (L), No photophobia, No TM abnormal (R), No TM abnormal (L), No pharyngeal erythema, No tonsillar exudate, No other, No discharge, No EOMI; hearing is well preserved; No hard of hearing; oral hygience is good; No ulceration, No xanthelasmas are seen Neck: No non-tender, No full range of motion, No supple, No normal inspection, No carotid bruit, No limited range of motion, No lymphadenopathy (R), No lymphadenopathy (L), No tender lateral, No tender midline, No thyromegaly, No other; carotid pulses are 2 + bilaterally; No with good upstrokes Respiratory: No accessory muscle use, No respiratory distress, No chest tender, No chest expansion is symmetric; chest is bilaterally symmetric; No lungs clear to percussion; lungs clear to auscultation; No crackles, No rhonchi, No rales, No stridor, No wheezing, No pleural rub, No other Cardiovascular: No regular rate-rhythm; irregularly irregular; No extra beats, No parasternal heave is noted, No JVD, No edema, No bradycardia, No tachycardia, No point of maximal impulse, No cardiac thrills are palpable; S1 and S2; No gallop/S3, No gallop/S4, No diastolic murmur; systolic murmur; No friction rub, No click, No other Gastrointestinal: No tender, No soft, No round, No distended, No pulsatile mass, No organomegaly, No guarding, No rebound, No tenderness, No hernia, No mass, No audible bowel sounds, No abnormal bowel sounds, No abdominal bruits, No spleenomegaly, No other Rectal: deferred Extremities: No normal range of motion, No non-tender, No normal inspection, No pedal edema, No calf tenderness, No normal capillary refill, No pelvis stable, No calf tenderness, No inflammation, No pedal edema, No slow capillary refill, N o swelling, No other, No abrasion, No clubbing, No cyanosis, No ecchymosis, No laceration, No no lower extremity edema bilateral, No significant edema, No tenderness, No wound Neurologic/Psychiatric: no motor/sensory deficits, alert, normal mood/affect, oriented x 3, power is 5/5 both on sides Skin: No normal color, No warm/dry, No cyanosis, No cool, No diaphoresis, No damp, No ecchymosis, No jaundice, No mottled, No pallor, No rash, No tattoos/piercings, No ulcerations, No rash on exposed areas, No ulcerations on exposed areas, No other Data Review Labs Laboratory Tests 04/20/19 03:20: White Blood Count 6.6, Red Blood Count 4.39, Hemoglobin 12.1, Hematocrit 38, Mean Corpuscular Volume 88, Mean Corpuscular Hemoglobin 28, Mean Corpuscular Hemoglobin Concent 32, Red Cell Distribution Width 14.7H, Platelet Count 188, Mean Platelet Volume 10.9H, Sodium Level 142, Potassium Level 4.2, Chloride Level 109H, Carbon Dioxide Level 23, Anion Gap 10, Blood Urea Nitrogen 31H, C reatinine 1.15, Estimat Glomerular Filtration Rate 45, BUN/Creatinine Ratio 27, Glucose Level 86, Calcium Level 8.8, Corrected Calcium 9.4, Total Bilirubin 0.4, Aspartate Amino Transf (AST/SGOT) 18, Alanine Aminotransferase (ALT/SGPT) 14, Alkaline Phosphatase 77, Total Protein 5.7L, Albumin 3.3, Thyroid Stimulating Hormone (TSH) 3.04 ECG Impression ECG Initial ECG Impression: Atrial Fibrillation A/P-Cardiology Assessment/Admission Diagnosis Persistent atrial fibrillation, Moderate to severe mitral regurgitation, Left atrial dilatation, CAD, Prolonged QTc interval Plan Patient follows with Dr. Medina. Electrophysiology consultation is requested by Dr. Medina. The patient has persistent atrial fibrillation and has failed or had side effects with either amiodarone or mexiletine. EKG shows atrial fibrillation with a QTc interval of 496 ms. She has been admitted for sotalol loading. EKG done after the sotalol dose this morning showed a QTc interval of 505 ms. Therefore sotalol will need to be discontinued. Flecainide is contraindicated due to CAD. Dofetilide is contraindicated due to prolonged QTc interval. We will start multaq 400 mg twice a day. Dr. Medina plans transesophageal echocardiogram assisted cardioversion in the morning. I have recommended a transthoracic echocardiogram to review left atrial size. Patient does have history of moderate to severe mitral regurgitation and left atrial dilation. Success of rhythm control strategy will be modest at best considering her age over 80 years, moderate to severe mitral regurgitation, left atrial dilatation and persistent nature of atrial fibrillation. Therefore if current attempt of cardioversion fails, we may consider rate control only. Continue stroke prevention with Xarelto. I have discussed this with the patient at length. Thank you for your consultation. Please call me if you have any questions. Delfina Laguerre MD, FACP, FACC, FSCAI, FHRS, CCDS Interventional Cardiology Cardiac Electrophysiology Vascular Medicine and Endovascular Interventions Clinical Quality Measures DVT/VTE Risk/Contraindication: Risk Factor Score Per Nursin RFS Level Per Nursing on Admit: 4+=Very High Jose LAGUERRE MD Apr 20, 2019 08:50
[2019-04-20] MEDS: SOTALOL 80 MG (BETAPACE) TAB PO SCH (09:09)
[2019-04-20] MEDS: CLOPIDOGREL 75 MG (PLAVIX) TABLET PO SCH (09:09)
[2019-04-20] MEDS ORDERED: IBUP-30 PO (10:04)
--- NOTE | 2019-04-20 10:05 | NUR ---
PATIENT HAD A LIST OF HER MEDICATIONS, I COMPARED IT WITH THE EXT MED HX AND SHE VERIFIED HOW SHE TAKES THEM. OTC MEDS: VITAMIN D 1200 CRANBERRY 1200 IBU 1 TAB PRN OMEGA 3 2 BID
--- NOTE | 2019-04-20 10:26 | Diagnostic Imaging Report ---
Examination: Chest 2 view. History: Atrial fibrillation. FINDINGS: Comparison is 09/18/2018. The cardiac monitoring device projects over the heart. There is a stent in the left anterior descending artery territory. Heart size is normal. No pleural effusion or pneumothorax. Calcified granuloma seen in the right lower lobe. No edema or pneumonia. IMPRESSION: 1. Clear lungs. Dictated by: Dictated on workstation # [id number]
[2019-04-20 11:23] VITALS: BP 125/78
[2019-04-20] MEDS ORDERED: PROMETHAZINE INJ 25 MG/ML (PHENERGAN) AMP ONE (14:08)
[2019-04-20] MEDS ORDERED: HYDROmorphone 2 MG/ML VIAL (DILAUDID) ONE (14:08)
--- NOTE | 2019-04-20 14:28 | NUR ---
dr cha notified that anesthesia may not be available at 0800 tomorrow for aric/cardioversion.
--- NOTE | 2019-04-20 15:30 | NUR ---
no response from dr cha regarding anesthesia for tomorrow's procedure. dry house operator notified.
[2019-04-20] MEDS: RIVAROXABAN 15 MG TABLET (XARELTO) PO SCH (16:53)
[2019-04-20 16:55] VITALS: BP 126/75
[2019-04-20 20:06] VITALS: BP 135/85
[2019-04-20] MEDS: DRONEDARONE TABLET 400 MG TABLET PO SCH (20:07)
[2019-04-20] MEDS: ROSUVASTATIN 5 MG (CRESTOR) TABLET PO SCH (20:08)
[2019-04-21 01:00] VITALS: BP 130/78
[2019-04-21 04:18] LABS: INR 2.1 (0.8-1.4); PROTHROMBIN TIME PATIENT 24.3 SEC (12.2-14.7)
[2019-04-21 08:00] VITALS: BP 128/97
--- NOTE | 2019-04-21 08:32 | Cardiac Procedure Note-CS/ASA ---
Pre-Procedure Note Pre-Op Procedure Note H&P Reviewed The H&P was reviewed, patient examined and no changes noted. Date H&P Reviewed: Apr 21, 2019 Time H&P Reviewed: 08:31 Conscious Sedation Pre-Proced Time 08:31 ASA Score 3 For ASA 3 and 4: Consider anesthesia and medical clearance. Also, for patients with a history of failed moderate sedation consider anesthesia. Airway Lungs Heart ASA score ASA 1: a normal healthy patient ASA 2: a patient with a mild systemic disease (mid diabetes, controlled hypertension, obesity x ASA 3: a patient with a severe systemic disease that limits activity (angina, COPD, prior Myocardial infarction) ASA 4: a patient with an incapacitating disease that is a constant threat to life (CHF, renal failure) ASA 5: a moribund patient not expected to survive 24 hrs. (ruptured aneurysm) ASA 6: a declared brain- patient whose organs are being harvested. For emergent operations, add the letter E after the classification Mallampati Classification Grade 3 Sedation Plan Analgesia, Amnesia, Plan communicated to team members, Discussed options with patient/fam, Discussed risks with patient/fam The patient is an appropriate candidate to undergo the planned procedure, sedation, and anesthesia. The patient immediately re-assessed prior to indication. VERÓNICA MENDEZ MD Apr 21, 2019 08:32
[2019-04-21] MEDS ORDERED: MIDAZOLAM 2 MG/2 ML (VERSED) VIAL ONE (09:30)
[2019-04-21] MEDS ORDERED: proPOfol 200 MG/20 ML (DIPRIVAN) VIAL IV ONE (09:31)
[2019-04-21] MEDS ORDERED: NS IV 500 ML 500 ML ONE (09:40)
--- NOTE | 2019-04-21 09:45 | NUR ---
Dr. Medina, sales service technician, and anesthesia at bedside for EROS/cardioversion. Anesthesia pushed drugs for sedation. Pt cardioverted at 0957 back to a NSR. She awakens after approx. 25 minutes. She is drowsy but answering questions and following commands. Vitals remained stable during procedure.
--- NOTE | 2019-04-21 10:25 | Cardioversion ---
Cardioversion PROCEDURE PHYSICIAN: Verónica Medina DATE OF PROCEDURE: 04/21/19 DIRECT EXTERNAL ELECTRICAL CARDIOVERSION: Indications: Atrial Fibrillation with rapid ventricular rate Preoperative diagnoses: Atrial Fibrillation with rapid ventricular rate Postoperative diagnosis: Sinus rhythm, Successful Electrical Cardioversion History: 83 years old lady with paroxysmal atrial fibrillation, noted initially with sotalol, had QT prolongation, sotalol was discontinued and she was started on Multaq and had a EROS today and cardioversion Anesthesia: By Anesthesia services Complications: None Specimen: None Contrast: 0 Flouroscopy: none Procedure Details: The patient was brought the label stitcher after informed consent was taken, all the risks and complications were explained including the risk of stroke. Electrical cardioversion was carried out with anesthesia support with propofol. 200 joules of synchronized shock was delivered through external patches which promptly restored sinus rhythm. The patient tolerated the procedure well. Conclusions: Successful EROS with electrical cardioversion with no complications VERÓNICA MEDINA MD Apr 21, 2019 10:25
[2019-04-21] MEDS: CLOPIDOGREL 75 MG (PLAVIX) TABLET PO SCH (11:41)
[2019-04-21] MEDS: DRONEDARONE TABLET 400 MG TABLET PO SCH (11:41)
--- NOTE | 2019-04-21 12:40 | Anesthesia-Procedure Note ---
Procedures/Interventions Procedure Start/Stop/Diagnosis Date of Procedure: Apr 21, 2019 Start Time: 09:47 Referring Physician: Carol Preprocedural Diagnosis: A Fib Brief History Patient's history was reviewed along with drug allergies. I discussed the sedation for the procedure and she agreed. O2/NC. A total of 2mg Versed and 50 mg Propofol given for EROS/Cardioversion. Patient tolerated well. etco2 32. SaO2 98%. Report off to Kristina Cheatham RN Stop Time: 10:06 EROS/Cardioversion Anesthesia Type: MAC ASA Class: 3 Medications Versed 2 Propofol 50 Monitors and Equipment: Continuous EKG, End Tidal CO2, IV (right hand), Pulse Oximeter, V Lead EKG AMALIA FARRIS CRNA Apr 21, 2019 12:40
[2019-04-21] MEDS ORDERED: DRON400T2 PO (12:51)
--- NOTE | 2019-04-21 12:57 | Cardiology Discharge Summary ---
Diagnosis/Chief Complaint Date of Admission Apr 19, 2019 at 17:02 Date of Discharge April 21, 2019 Admission Diagnosis Chronic atrial fibrillation Coronary artery disease Shortness of breath Hypertension Discharge Diagnosis paroxysmal atrial fibrillation Coronary artery disease Shortness of breath Hypertension Chief Complaint/HPI Chief Complaint/HPI is 3 years old lady with history of coronary artery disease paroxysmal atrial fibrillation moderate severe mitral regurgitation, has failed multiple attempts to achieve adequate therapy for her atrial fibrillation, seen in the office with increasing fatigue and shortness of breath decided to schedule her for admission and load her with sotalol then proceed with EROS and cardioversion, after the second dose of sotalol patient had QT prolongation, sotalol was discontinued and started on Multaq after consulting with Dr. Laguerre, EROS and electrical cardioversion were done this morning and patient is recovering well and doing well. Asking to go home. Discharge Summary Hospital Course Was the Problem List Reviewed?: Yes Hospital Course Paroxysmal atrial fibrillation, status post EROS with successful cardioversion August 2017. Was intolerant to amiodarone secondary to elevated LFTs and increased fatigue. Intolerance to Mexiletine with severe nausea and vomiting. Status post Linq implantation on April 07, 2019. Loop recorder interrogation showing persistent atrial fibrillation, she was started on sotalol subsequently was intolerant due to progressive QT prolongation, medication was stopped and she was started on Multaq, underwent EROS with electrical cardioversion today and she is back in sinus rhythm and doing well and asking to go home. Moderate to moderately severe mitral regurgitation, is referred to [facility], patient underwent repeat EROS revealing moderate mitral regurgitation. No surgery is warranted at this time, repeat echocardiogram was done in September 2018 showed normal LV size and function with ejection fraction 55-65 percent, increased pulmonary artery pressure with estimated peak pressure of 37 mmHg, moderate to severe mitral regurgitation with dilated left atrium measuring 4.3 cm, EROS today show moderate to severe mitral regurgitation, flow reversal and elevation of the left atrium and left atrial appendage. We will continue to maximize medical therapy, referred back for evaluation for possible valve replacement Coronary artery disease with history of PTCA and stents to LAD in 2009 with cardiac catheterization 09/20/2013 revealing patent stents in the proximal and mid LAD with a step down beyond stent. Mild irregularity at the distal LAD. Mild irregularity the distal circumflex proximal artery. Repeat cardiac catheterization done August 20, 2017 revealed moderate mid LAD disease with negative fractional flow reserve. Patent stents in proximal LAD, had another cardiac catheterization September 2018 after non-ST elevation myocardial infarction resulted in another stent in the distal LAD using Stephaina 2.25 x 8 mm with good results. Plavix and Xarelto. Continue to monitor Shortness of breath, no change from baseline, reporting improvement. Continue to monitor Frequent PVCs with ventricular bigeminy, intolerant to Mexitil, the patient had severe nausea was unable to tolerated and it was discontinued, I will restart metoprolol and monitor her tolerance and response [id number] score of 5, patient is maintained on Xarelto. Hypertension, controlled. Continue to monitor blood pressure/heart rate. Hyperlipidemia, maintained on Crestor 5 mg daily, lipid profile done in November 2018 showing total cholesterol 160, HDL 56, triglyceride 94, LDL 85. Continue to monitor History of elevated LFTs while on amiodarone and Lipitor. Both medications were discontinued. Currently on Crestor, liver enzymes are back to normal Mild bilateral carotid artery stenosis. Last ultrasound was done in June 2018, continue to monitor Recurrent palpitation. Probably secondary to PVC., Reporting improvement. Peripheral edema, reporting improvement. Continue to monitor. Osteoporosis. History of chronic renal insufficiency, renal function are better on this test from December 09, 2017. Labs Laboratory Tests 04/20/19 03:20: Red Cell Distribution Width 14.7H, Mean Platelet Volume 10.9H, Chloride Level 109H, Blood Urea Nitrogen 31H, Total Protein 5.7L 04/21/19 03:45: Prothrombin Time 24.3H, INR Comment 2.1H, Activated Partial Thromboplast Time 43H Procedures None. Discharge Physical Examination Allergies: Coded Allergies: Penicillins (Unverified Allergy, Mild, 04/19/09) Vitals & I&Os Vital Signs Date Time Temp Pulse Resp B/P (MAP) Pulse Ox O2 Delivery O2 Flow Rate FiO2 04/21/19 08:00 128/97 (107) Room Air 04/21/19 07:00 80 04/21/19 04:11 97.2 04/20/19 20:06 92 04/20/19 16:55 18 General Appearance: Alert, Oriented X3, Cooperative, No Acute Distress HEENT: Atraumatic, PERRLA Respiratory: Clear to Auscultation, Normal Air Movement Cardiovascular: Regular Rate, Normal S1, Normal S2, No Murmurs Abdominal: Normal Bowel Sounds, Soft, No Tenderness, No Hepatosplenomegaly, No Masses Extremities: No Clubbing, No Cyanosis, No Edema, Normal Pulses, No Tenderness/Swelling Skin: No Rashes, No Breakdown, No Significant Lesion Neuro: Normal Gait, Normal Speech, Strength at 5/5 X4 Ext, Normal Tone, S ensation Intact, Cranial Nerves 3-12 NL, Reflexes 2+ Psych/Mental Status: Mental Status NL, Mood NL Discharge Home Medications Reviewed and agree with Discharge Medication list on patient's Discharge Instruction sheet Instructions to Patient/Family Please see electronic discharge instructions given to patient. Clinical Quality Measures End of Life/Advance Care Plan: Advance Care discuss with: patient Admission Status Admission Status: Inpatient Order (span 2 midnights) Reason for Inpatient Admission: patient required loading for sotalol which require 3 days monitoring in the hospital DVT/VTE Risk/Contraindication: Risk Factor Score Per Nursin RFS Level Per Nursing on Admit: 4+=Very High VERÓNICA MENDEZ MD Apr 21, 2019 12:57
--- NOTE | 2019-04-21 13:19 | Cardiology Progress Note ---
Cardiology SOAP Progress Note Subjective: Still in atrial fibrillation however with controlled ventricular rate. Objective: I&O/Vital Signs 04/21/19 04/21/19 04/21/19 04/21/19 04:11 07:00 08:00 14:00 Temp 97.2 Pulse 80 B/P (MAP) 128/97 (107) O2 Delivery Room Air 04/21/19 00:00 Intake Total 600 ml Output Total 250 ml Balance 350 ml Weight (Pounds): 155 Weight (Ounces): 6.0 Weight (Calculated Kilograms): 70.949320 Constitutional: appears stated age, AAO x 3; No apparent distress; well- developed, well-nourished Respiratory: No accessory muscle use, No respiratory distress, No chest tender, No chest expansion is symmetric; chest is bilaterally symmetric; No lungs clear to percussion; lungs clear to auscultation; No crackles, No rhonchi, No rales, No stridor, No wheezing, No pleural rub, No other Cardiovascular: No regular rate-rhythm; irregularly irregular; No extra beats, No parasternal heave is noted, No JVD, No edema, No bradycardia, No tachycardia, No point of maximal impulse, No cardiac thrills are palpable; S1 and S2; No gallop/S3, No gallop/S4, No diastolic murmur; systolic murmur; No friction rub, No click, No other Gastrointestional: No tender, No soft, No round, No distended, No pulsatile mass, No organomegaly, No guarding, No rebound, No tenderness, No hernia, No mass, No audible bowel sounds, No abnormal bowel sounds, No abdominal bruits, No spleenomegaly, No other Extremities: No normal range of motion, No non-tender, No normal inspection, No pedal edema, No calf tenderness, No normal capillary refill, No pelvis stable, No calf tenderness, No inflammation, No pedal edema, No slow capillary refill, No swelling, No other, No abrasion, No clubbing, No cyanosis, No ecchymosis, No laceration, No no lower extremity edema bilateral, No significant edema, No tenderness, No wound Neurologic/Psychiatric: no motor/sensory deficits, alert, normal mood/affect, oriented x 3, power is 5/5 both on sides Skin: No normal color, No warm/dry, No cyanosis, No cool, No diaphoresis, No damp, No ecchymosis, No jaundice, No mottled, No pallor, No rash, No tattoos/piercings, No ulcerations, No rash on exposed areas, No ulcerations on exposed areas, No other Results/Procedures: Labs Laboratory Tests 04/21/19 03:45: Prothrombin Time 24.3H, INR Comment 2.1H, Activated Partial Thromboplast Time 43H A/P: Assessment/Dx: Persistent atrial fibrillation, Moderate to severe mitral regurgitation, Left atrial dilatation, CAD, Prolonged QTc interval Plan: Patient follows with Dr. Medina. Electrophysiology consultation is requested by Dr. Medina. The patient has persistent atrial fibrillation and has failed or had side effects with either amiodarone or mexiletine. EKG shows atrial fibrillation with a QTc interval of 496 ms. She has been admitted for sotalol loading. EKG done after the sotalol dose this morning showed a QTc interval of 505 ms. Therefore sotalol will need to be discontinued. Flecainide is contraindicated due to CAD. Dofetilide is contraindicated due to prolonged QTc interval. We will start multaq 400 mg twice a day. Dr. Medina plans transesophageal echocardiogram assisted cardioversion today. Transthoracic echocardiogram shows dilated left atrium with diameter of 5.5 cm. At least moderate mitral regurgitation. Patient does have history of moderate to severe mitral regurgitation and left atrial dilation. Success of rhythm control st rategy will be modest at best considering her age over 80 years, moderate to severe mitral regurgitation, left atrial dilatation and persistent nature of atrial fibrillation. Therefore if current attempt of cardioversion fails, we may consider rate control only. Continue stroke prevention with Xarelto. I have discussed this with the patient at length. Thank you for your consultation. Please call me if you have any questions. Delfina Laguerre MD, FACP, FACC, FSCAI, FHRS, CCDS Interventional Cardiology Cardiac Electrophysiology Vascular Medicine and Endovascular Interventions Jose LAGUERRE MD Apr 21, 2019 13:19
== END 2019-04-21 14:00 | disposition home or self-care (01) | DRG 310 ==
LOC: ICU 17:02
PROVIDERS: ADMIT Internal Medicine; ATTEND Internal Medicine
PROC: 5A2204Z Restoration of Cardiac Rhythm, Single (ICD-10-PCS; principal; 2019-04-21)
DX: I48.0 Paroxysmal atrial fibrillation (principal); I49.3 Ventricular premature depolarization; R00.8 Other abnormalities of heart beat; I34.0 Nonrheumatic mitral (valve) insufficiency; I25.10 Atherosclerotic heart disease of native coronary artery without angina pectoris; I25.2 Old myocardial infarction; I12.9 Hypertensive chronic kidney disease with stage 1 through stage 4 chronic kidney disease, or unspecified chronic kidney disease; N18.9 Chronic kidney disease, unspecified; E78.5 Hyperlipidemia, unspecified; I65.23 Occlusion and stenosis of bilateral carotid arteries; R60.0 Localized edema; M81.0 Age-related osteoporosis without current pathological fracture; F41.9 Anxiety disorder, unspecified; K21.9 Gastro-esophageal reflux disease without esophagitis; Z95.5 Presence of coronary angioplasty implant and graft; Z79.01 Long term (current) use of anticoagulants
CPT/HCPCS: 36415; 71046; 80053; 84443; 85027; 85610; 85730; 93005; 93306; 93312

== ENCOUNTER 2019-07-14 07:56 | Outpatient (RCR) | payer MEDICARE, OTHER ==
[~2019-07-14 07:56] MED LIST changes: +DRON400T2 PO; +IBUP-30 PO; -METO-387 PO; +MTP25TSR PO
== END 2019-08-08 | disposition home or self-care (01) ==
LOC: CR 07:56
PROVIDERS: ATTEND Internal Medicine Cardiovascular Disease
DX: I48.91 Unspecified atrial fibrillation (principal); I25.2 Old myocardial infarction; R06.02 Shortness of breath; Z95.5 Presence of coronary angioplasty implant and graft
CPT/HCPCS: 93798

== ENCOUNTER → 2020-01-07 | Outpatient (CLI) | payer MEDICARE, OTHER | LOC: CARD 08:42 | PROVIDERS: ATTEND Internal Medicine Cardiovascular Disease | DX: I08.3 Combined rheumatic disorders of mitral, aortic and tricuspid valves (principal); I51.89 Other ill-defined heart diseases; I11.9 Hypertensive heart disease without heart failure; I48.0 Paroxysmal atrial fibrillation; E78.5 Hyperlipidemia, unspecified | CPT/HCPCS: 93306 ==

== ENCOUNTER 2020-03-13 08:27 | Emergency (ER) | payer MEDICARE, OTHER ==
[~2020-03-13] VITALS: Ht 165 cm; Wt 71.0 kg
--- NOTE | 2020-03-13 08:47 | ED Fall/Injury ---
General Chief Complaint: Trauma-Non Activation Stated Complaint: FALL Nursing Triage Note: PT ARRIVED PER [facility], PT CO OF FALL AT HOME THIS AM PRIOR TO GETTING IN SHOWER. PT DENIES LOC.PT HAS LAC TO BACK OF HEAD AND IS IN C-COLLAR. PT ALSO HAS R SHOULDER PAIN. PT STATES TAKES BLOOD THINNERS Source: patient Exam Limitations: no limitations History of Present Illness Date Seen by Provider: Mar 13, 2020 Time Seen by Provider: 08:26 Initial Comments Patient presents to ER by EMS from home with chief complaint that she was trying to get in the shower and get her sock off lost her balance falling backwards striking the back of her head and having some bleeding. Her daughter dressed her head just prior to EMS arrival and EMS did not take the dressing down because it was continuing to ooze. She is on Xarelto and Plavix. She has a history of heart disease followed by Dr. Medina and followed by Dr. Overton for primary care. She's not having any nausea and only claims she has pain in the back of her head. She does have a history of 3 UTI since the beginning of the year so she did start following with Dr. Awan and has a second appointment with him coming up in a week or 2. She denies having any dysuria fever chills cough shortness of breath loss of consciousness. The patient denies a tetanus vaccination the last 5 ye ars. Allergies and Home Medications Allergies Coded Allergies: Penicillins (Unverified Allergy, Mild, 04/19/09) Home Medications Cholecalciferol (Vitamin D3) 1,000 Unit Capsule, 1,000 UNIT PO 1200, (Reported) Clopidogrel Bisulfate 75 Mg Tablet, 75 MG PO 1200, (Reported) Cranberry Extract 500 Mg Tablet, 500 MG PO 1200, (Reported) Dronedarone HCl 400 Mg Tablet, 400 MG PO BID Prescribed by: VERÓNICA MEDINA on 04/21/19 1251 Furosemide 20 Mg Tablet, 20 MG PO DAILY, (Reported) Ibuprofen 200 Mg Tablet, 200 MG PO TID PRN for PAIN-MILD, (Reported) Metoprolol Succinate 25 Mg Tab.er.24h, 25 MG PO HS, (Reported) Ayr-3/Dha/Epa/Fish Oil 1 Each Capsule, 2 CAP PO BID, (Reported) Ondansetron 4 Mg Tab.rapdis, 4 MG PO Q6H PRN for NAUSEA/VOMITING Prescribed by: MEAGAN AYON on 03/13/20 1035 Potassium Chloride 10 Meq Tablet.er, 10 MEQ PO DAILY, (Reported) Rivaroxaban 15 Mg Tablet, 15 MG PO 1800, (Reported) Rosuvastatin Calcium 5 Mg Tablet, 5 MG PO HS, (Reported) Patient Home Medication List Home Medication List Reviewed: Yes Review of Systems Review of Systems Constitutional: No chills, No diaphoresis Eyes: Denies Blindness, Denies Drainage Ears, Nose, Mouth, Throat: denies ear pain, denies ear discharge Respiratory: No cough, No short of breath Cardiovascular: No chest pain, No edema Gastrointestinal: No abdominal pain, No nausea Genitourinary: No discharge, No dysuria Musculoskeletal: No back pain, No joint pain All Other Systems Reviewed Negative Unless Noted: Yes Past Jmcpvyi-Jglltr-Cmvtfp Hx Patient Social History Alcohol Use: Denies Use Recreational Drug Use: No Smoking Status: Never a Smoker 2nd Hand Smoke Exposure: No Recent Foreign Travel: No Contact w/Someone Who Travel: No Recent Infectious Disease Expo: No Recent Hopitalizations: No Immunizations Up To Date Date of Pneumonia Vaccine: Jun 01, 2018 Date of Influenza Vaccine: May 19, 2018 Seasonal Allergies Seasonal Allergies: No Past Medical History Surgeries: Yes (cardiac stents) Abdominal, Appendectomy, Coronary Stent, Hysterectomy Respiratory: No Cardiac: Yes Atrial Fibrillation, Coronary Artery Disease, Hypertension Neurological: No Reproductive Disorders: No Genitourinary: Yes Bladder Infection, UTI-Chronic Gastrointestinal: No Gastroesophageal Reflux Musculoskeletal: No Osteoporosis Endocrine: No HEENT: Yes (b/l eyes) Cataract Cancer: No Psychosocial: Yes Anxiety Integumentary: No Blood Disorders: No Adverse Reaction/Blood Tranf: No Family Medical History Heart Disease Physical Exam Vital Signs Vital Signs - First Documented Capillary Refill : Less Than 3 Seconds Height, Weight, BMI Height: 5'5.00" Weight: 155lbs. 6.0oz. 70.818752pp; 26.00 BMI Method:Stated General Appearance: WD/WN, no apparent distress HEENT: PERRL/EOMI, normal ENT inspection, TMs normal, pharynx normal, other (dressing on the head. Negative for hemotympanum or Schwarz sign. 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, no motor/sensory deficits, alert, normal mood/affect, oriented x 3 Skin: normal color, warm/dry [place] Coma Score Best Eye Response: (4) Open Spontaneously Best Verbal Response: (5) Oriented Best Motor Response: (6) Obeys Commands [place] Total: 15 Procedures/Interventions Wound Location: Scalp Other Wound Location Right occiput Wound Length (cm): 3.5 Wound's Depth, Shape: linear, sub Q Wound Explored: clean Irrigated w/ Saline (ccs): 500 Betadine Prep?: Yes (chlorhexidine) Wound Debrided: minimal Staple Repair: Stapler 35W Number of Sutures: 9 Sterile Dressing Applied?: Yes Progress Wound was thoroughly cleaned and explored. Chlorhexidine and sterile saline were used. Wound was reapproximated and stapled with 9 pamela. This gave us good hemostasis. We then cleaned the wound with hydrogen peroxide. Patient tolerated the procedure. Progress/Results/Core Measures Results/Orders Lab Results Laboratory Tests Test 03/13/20 08:48 03/13/20 09:50 Range/Units White Blood Count 7.4 4.3-11.0 10^3/uL Red Blood Count 4.73 4.35-5.85 10^6/uL Hemoglobin 13.9 11.5-16.0 G/DL Hematocrit 43 35-52 % Mean Corpuscular Volume 90 80-99 FL Mean Corpuscular Hemoglobin 29 25-34 PG Mean Corpuscular Hemoglobin Concent 33 32-36 G/DL Red Cell Distribution Width 13.5 10.0-14.5 % Platelet Count 275 130-400 10^3/uL Mean Platelet Volume 10.0 7.4-10.4 FL Sodium Level 142 135-145 MMOL/L Potassium Level 4.2 3.6-5.0 MMOL/L Chloride Level 107 98-107 MMOL/L Carbon Dioxide Level 24 21-32 MMOL/L Anion Gap 11 5-14 MMOL/L Blood Urea Nitrogen 32 H 7-18 MG/DL Creatinine 1.50 H 0.60-1.30 MG/DL Estimat Glomerular Filtration Rate 33 BUN/Creatinine Ratio 21 Glucose Level 91 70-105 MG/DL Calcium Level 9.1 8.5-10.1 MG/DL Urine Color YELLOW Urine Clarity CLEAR Urine pH 6.0 5-9 Urine Specific Brewer 1.025 H 1.016-1.022 Urine Protein NEGATIVE NEGATIVE Urine Glucose (UA) NEGATIVE NEGATIVE Urine Ketones NEGATIVE NEGATIVE Urine Nitrite NEGATIVE NEGATIVE Urine Bilirubin NEGATIVE NEGATIVE Urine Urobilinogen 0.2 < = 1.0 MG/DL Urine Leukocyte Esterase NEGATIVE NEGATIVE Urine RBC (Auto) NEGATIVE NEGATIVE Urine RBC 0-2 /HPF Urine WBC NONE /HPF Urine Squamous Epithelial Cells 5-10 /HPF Urine Crystals NONE /LPF Urine Bacteria NEGATIVE /HPF Urine Casts NONE /LPF Urine Mucus NEGATIVE /LPF Urine Culture Indicated NO My Orders Orders - GABO,MEAGAN J Shoulder, Right, 3 Views (03/13/20 08:40) Cbc No Diff (03/13/20 08:49) Basic Metabolic Panel (03/13/20 08:49) Ua Culture If Indicated (03/13/20 08:49) Ct Head/Cervical Spine Wo (03/13/20 08:49) Dipht,Pertuss(Acell),Tet Adult (Boostrix (03/13/20 09:00) Fentanyl Injection (Sublimaze Injection (03/13/20 09:36) Medications Given in ED Current Medications Medications Dose Ordered Sig/Aman Route Start Time Stop Time Status Last Admin Dose Admin Diphtheria/ Tetanus/Acell Pertussis 0.5 ml ONCE ONCE IM 03/13/20 09:00 03/13/20 09:01 DC 03/13/20 08:57 0.5 ML Fentanyl Citrate 100 mcg STK-MED ONCE .ROUTE 03/13/20 09:36 03/13/20 09:38 DC 03/13/20 09:40 50 MCG Vital Signs/I&O 03/13/20 03/13/20 03/13/20 08:28 08:28 10:55 Temp 36.0 36.1 Pulse 102 102 88 Resp 20 16 20 B/P (MAP) 145/96 (112) 145/96 (112) 141/104 (112) Pulse Ox 97 7 97 O2 Delivery Room Air Blood Pressure Mean: 112 Progress Progress Note #1: Time: 08:47 Progress Note Because of the fall from standing, a simple head injury and Xarelto usage reactivated level II trauma. Plan to get a x-ray of her right shoulder where she has a hematoma and CT of the head and C-spine. Basic labs and a urinalysis given her history of recent UTIs. Patient does not want anything for pain at this time. After the imaging is done we will reexamine the wound and close it appropriately. Plan to administer a tetanus vaccination today. Progress Note #2: Time: 09:30 Progress Note C-collar cleared clinically and radiographically. 50 g fentanyl IM given for discomfort as we clean and staple her head laceration. Next step is to obtain urinalysis. Progress Note #3: Time: 10:11 Progress Note Did offer the patient a stay in the hospital for observation. She would prefer to go home she says her daughters are very good job of taking care of her and will stay with her tonight. Diagnostic Imaging Diagonstic Imaging: Xray Plain Films/CT/US/NM/MRI: other (Right shoulder) Comments [facility], [place] NAME: MORENA MARTINEZ Muzeek REC#: [id number] PT STATUS: REG ER : 1935 PHYSICIAN: MEAGAN AYON MD ADMIT DATE: 03/13/20/ER Draft Date of Exam:03/13/20 SHOULDER, RIGHT, 3 VIEWS INDICATION: Trauma and right shoulder pain. TIME OF EXAM: 9:26 AM 3 views of the right shoulder were obtained. The glenohumeral and acromioclavicular alignment are normal. Acromiohumeral space is normal. No fracture or dislocation is identified. IMPRESSION: No acute bony abnormality is detected. Dictated on workstation # [id number] Dict: 03/13/2038 Trans: 03/13/2040 [facility] [id number] Interpreted by: RACHELLE TOMLIN MD Electronically signed by: Reviewed: Reviewed by Me Diagonstic Imaging: CT Plain Films/CT/US/NM/MRI: head Comments NAME: MORENA MARTINEZ [facility] REC#: [id number] PT STATUS: REG ER : 1935 PHYSICIAN: MEAGAN AYON MD ADMIT DATE: 03/13/20/ER Draft Date of Exam:03/13/20 CT HEAD/CERVICAL SPINE WO PROCEDURE: CT head and CT cervical spine without contrast. TECHNIQUE: Multiple contiguous axial images were obtained through the brain and cervical spine without the use of intravenous contrast. Sagittal and coronal reformations through the cervical spine were then performed. Auto Exposure Controls were utilized during the CT exam to meet ALARA standards for radiation dose reduction. INDICATION: Fall. No prior studies are available for comparison. CT HEAD: Ventricles and sulci are within normal limits. No sulcal effacement or midline shift is identified. No acute intra-axial or extra-axial hemorrhage is detected. Cisterns are patent. The paranasal sinuses are clear apart from mucosal thickening of the sphenoid sinus as well as a small mucous retention cyst or polyp in the right maxillary sinus. No depressed calvarial fracture is seen. There appears to be a soft tissue swelling of right occipital scalp. IMPRESSION: No acute intracranial process is detected. CT CERVICAL SPINE: Curvature and alignment of the cervical spine is normal. No fracture or subluxation is identified. The prevertebral tissues are normal. Odontoid is intact. There is generalized facet arthropathy noted. IMPRESSION: No acute bony abnormality is detected. Dictated on workstation # [id number] Dict: 03/13/20917 Trans: 03/13/2024 [facility] [id number] Interpreted by: RACHELLE TOMLIN MD Electronically signed by: Reviewed: Reviewed by Me Consults : Consulting Physician: PENNY STONE DO Consults Notes Discussed the case with Dr. Stone and he agrees with offering an observation for 24 hours after fall with Xarelto. Patient has declined this option. Departure Impression Primary Impression: Fall Qualified Codes: W19.XXXA - Unspecified fall, initial encounter Additional Impressions: Laceration of head Qualified Codes: S01.01XA - Laceration without foreign body of scalp, initial encounter Concussion Qualified Codes: S06.0X0A - Concussion without loss of consciousness, initial encounter Traumatic hematoma of right shoulder Qualified Codes: S40.011A - Contusion of right shoulder, initial encounter Disposition: HOME, SELF-CARE Condition: Stable Departure-Patient Inst. Decision time for Depature: 10:29 Referrals: GORDO OVERTON DO (PCP/Family) Primary Care Physician Patient Instructions: Concussion in Adults, Laceration Repair With Pamela (DC) Add. Discharge Instructions: Plan to return to your doctor or the ER to have the pamela out in about 10 days. Keep the head clean with regular soap and water, shampoo etc. Showers are okay but do not submerse under water. If the bleeding resumes then sit up and applied direct pressure. If this does not get it to stop you may return to the ER and we will help you. Tylenol 650 mg every 6 hours as necessary for pain. An ice pack applied to your shoulder and head for 20 minutes every 2 hours while awake for the first 2 days will be helpful for swelling and pain. Do not need to discontinue your Xarelto at this time. Ondansetron one tablet under the tongue every 6 hours as necessary for nausea or vomiting. Plan to spend the next 1-2 days taking it easy at home. Plenty of and drinking plenty of water. If you become nauseated, irritable, difficulty with your balance, headache or difficulty focusing/concentrating that this is your concussion and you need sleep. All discharge instructions reviewed with patient and/or family. Voiced understanding. Scripts Ondansetron (Ondansetron Odt) 4 Mg Tab.rapdis 4 MG PO Q6H PRN for NAUSEA/VOMITING, #8 TAB 0 Refills Prov: MEAGAN AYON 03/13/20 MEAGAN AYON Mar 13, 2020 08:47
[2020-03-13] MEDS ORDERED: TETANUS,DIPTH,PERTUSS P/F (BOOSTRIX) 0.5 ML VIAL IM ONE (09:00)
[2020-03-13 09:05] LABS: HEMOGLOBIN 13.9 G/DL (11.5-16.0); RED CELL DISTRIBUTION WIDTH 13.5 % (10.0-14.5); WHITE BLOOD COUNT 7.4 10^3/uL (4.3-11.0)
[2020-03-13 09:16] LABS: POTASSIUM 4.2 MMOL/L (3.6-5.0)
[2020-03-13 09:18] LABS: CALCIUM 9.1 MG/DL (8.5-10.1)
[2020-03-13 09:22] LABS: CREATININE SERUM 1.5 MG/DL (0.60-1.30)
--- NOTE | 2020-03-13 09:24 | Diagnostic Imaging Report ---
PROCEDURE: CT head and CT cervical spine without contrast. TECHNIQUE: Multiple contiguous axial images were obtained through the brain and cervical spine without the use of intravenous contrast. Sagittal and coronal reformations through the cervical spine were then performed. Auto Exposure Controls were utilized during the CT exam to meet ALARA standards for radiation dose reduction. INDICATION: Fall. No prior studies are available for comparison. CT HEAD: Ventricles and sulci are within normal limits. No sulcal effacement or midline shift is identified. No acute intra-axial or extra-axial hemorrhage is detected. Cisterns are patent. The paranasal sinuses are clear apart from mucosal thickening of the sphenoid sinus as well as a small mucous retention cyst or polyp in the right maxillary sinus. No depressed calvarial fracture is seen. There appears to be a soft tissue swelling of right occipital scalp. IMPRESSION: No acute intracranial process is detected. CT CERVICAL SPINE: Curvature and alignment of the cervical spine is normal. No fracture or subluxation is identified. The prevertebral tissues are normal. Odontoid is intact. There is generalized facet arthropathy noted. IMPRESSION: No acute bony abnormality is detected. Dictated by: Dictated on workstation # [id number]
[2020-03-13] MEDS ORDERED: fentaNYL INJECTION 100 MCG/2 ML AMP ONE (09:36)
--- NOTE | 2020-03-13 09:40 | Diagnostic Imaging Report ---
INDICATION: Trauma and right shoulder pain. TIME OF EXAM: 9:26 AM 3 views of the right shoulder were obtained. The glenohumeral and acromioclavicular alignment are normal. Acromiohumeral space is normal. No fracture or dislocation is identified. IMPRESSION: No acute bony abnormality is detected. Dictated by: Dictated on workstation # [id number]
--- NOTE | 2020-03-13 09:56 | NUR ---
DAUGHTER UPDATED ON PT STATUS
[2020-03-13 10:07] LABS: BILIRUBIN,URINE NEGATIVE (NEGATIVE); CLARITY,URINE CLEAR; COLOR,URINE YELLOW; GLUCOSE, URINE (UA) NEGATIVE (NEGATIVE); KETONES,URINE NEGATIVE (NEGATIVE); LEUKOCYTE ESTERASE ,URINE NEGATIVE (NEGATIVE); NITRITE,URINE NEGATIVE (NEGATIVE); PROTEIN,URINE NEGATIVE (NEGATIVE)
[2020-03-13 10:24] LABS: BACTERIA,URINE NEGATIVE /HPF; RBC,URINE 0-2 /HPF
[2020-03-13] MEDS ORDERED: ONDA4TAB11 PO (10:35)
[2020-03-13 10:55] VITALS: BP 141/104
--- NOTE | 2020-03-13 10:56 | NUR ---
MICHELET DEAN CO DISCHARGE INST
== END 2020-03-13 10:53 | disposition home or self-care (01) ==
LOC: EDUNIT# 08:27 → ER 08:29
DX: S06.0X0A Concussion without loss of consciousness, initial encounter (principal); S01.01XA Laceration without foreign body of scalp, initial encounter; S40.011A Contusion of right shoulder, initial encounter; I48.91 Unspecified atrial fibrillation; I25.10 Atherosclerotic heart disease of native coronary artery without angina pectoris; I10 Essential (primary) hypertension; K21.9 Gastro-esophageal reflux disease without esophagitis; R40.2142 Coma scale, eyes open, spontaneous, at arrival to emergency department; R40.2252 Coma scale, best verbal response, oriented, at arrival to emergency department; R40.2362 Coma scale, best motor response, obeys commands, at arrival to emergency department; Z95.5 Presence of coronary angioplasty implant and graft; Z79.01 Long term (current) use of anticoagulants; Z23 Encounter for immunization; Z79.02 Long term (current) use of antithrombotics/antiplatelets; Z88.0 Allergy status to penicillin; Z82.49 Family history of ischemic heart disease and other diseases of the circulatory system; W18.39XA Other fall on same level, initial encounter; W22.8XXA Striking against or struck by other objects, initial encounter
CPT/HCPCS: 12002; 36415; 70450; 72125; 73030; 80048; 81000; 85027; 90715

== ENCOUNTER 2020-03-23 14:40 | Emergency (ER) | payer MEDICARE, OTHER ==
[~2020-03-23] VITALS: Ht 165.1 cm; Wt 71.7 kg
[~2020-03-23 14:40] MED LIST changes: +ONDA4TAB11 PO
[2020-03-23 14:55] VITALS: BP 135/84
== END 2020-03-23 14:55 | disposition home or self-care (01) ==
LOC: EDUNIT# 14:40 → ER 14:43
DX: S01.81XD Laceration without foreign body of other part of head, subsequent encounter (principal); X58.XXXD Exposure to other specified factors, subsequent encounter

== ENCOUNTER 2020-07-31 18:17 | Inpatient (IN) | payer MEDICARE, OTHER ==
[~2020-07-31] VITALS: Ht 165.1 cm; Wt 73.2 kg
[~2020-07-31 18:17] MED LIST changes: +ASPI-1238 PO; -ASPI-983 PO
--- NOTE | 2020-07-31 18:24 | ED Chest Pain ---
General Stated Complaint: CP Source: patient Exam Limitations: no limitations History of Present Illness Date Seen by Provider: Jul 31, 2020 Time Seen by Provider: 18:21 Initial Comments To ER by EMS from home with reports of chest pain. This began about 9 AM this morning. It's described as a dull ache greater than about 3 out of 10. She has a history of coronary artery disease with 5 coronary stents placed by Dr. Medina, she also states that she has had 3 heart attacks. She has tried bending forward and moving around thinking that that might help the pain but it did not. She states this pain is different than the pain she has had with her previous heart attacks. She is compliant with her Plavix regimen and was given 324 mg of aspiri n in route to the hospital by EMS as well as 1 nitroglycerin. Nitroglycerin did help with her pain, she states it is still there but just minimally noticeable. No shortness of breath no fever no cough and no nausea. 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 NTG SL FOOD SCIENCE PROFESSOR: Yes Associated Symptoms: No nausea/vomiting, No shortness of breath, No swelling/lump in chest Allergies and Home Medications Allergies Coded Allergies: Penicillins (Unverified Allergy, Mild, 04/19/09) Home Medications Cholecalciferol (Vitamin D3) 1,000 Unit Capsule, 1,000 UNIT PO 1200, (Reported) Clopidogrel Bisulfate 75 Mg Tablet, 75 MG PO 1200, (Reported) Cranberry Extract 500 Mg Tablet, 500 MG PO 1200, (Reported) Dronedarone HCl 400 Mg Tablet, 400 MG PO BID Prescribed by: VERÓNICA MEDINA on 04/21/19 1251 Furosemide 20 Mg Tablet, 20 MG PO DAILY, (Reported) Ibuprofen 200 Mg Tablet, 200 MG PO TID PRN for PAIN-MILD, (Reported) Metoprolol Succinate 25 Mg Tab.er.24h, 25 MG PO HS, (Reported) [place]-3/Dha/Epa/Fish Oil 1 Each Capsule, 2 CAP PO BID, (Reported) Ondansetron 4 Mg Tab.rapdis, 4 MG PO Q6H PRN for NAUSEA/VOMITING Prescribed by: MEAGAN AYON on 03/13/20 1035 Potassium Chloride 10 Meq Tablet.er, 10 MEQ PO DAILY, (Reported) Rivaroxaban 15 Mg Tablet, 15 MG PO 1800, (Reported) Rosuvastatin Calcium 5 Mg Tablet, 5 MG PO HS, (Reported) Patient Home Medication List Home Medication List Reviewed: Yes Review of Systems Review of Systems Constitutional: see HPI EENTM: No Symptoms Reported Respiratory: No Symptoms Reported Cardiovascular: See HPI, Chest Pain Gastrointestinal: See HPI; Denies Abdominal Pain Genitourinary: No Symptoms Reported Musculoskeletal: no symptoms reported Skin: no symptoms reported Psychiatric/Neurological: No Symptoms Reported Endocrine: No Symptoms Reported Hematologic/Lymphatic: No Symptoms Reported Past Vmhtpke-Isoouq-Fmdggh Hx Patient Social History 2nd Hand Smoke Exposure: No Recent Hopitalizations: No Immunizations Up To Date Date of Pneumonia Vaccine: Jun 01, 2018 Date of Influenza Vaccine: May 19, 2018 Seasonal Allergies Seasonal Allergies: No Past Medical History Surgeries: Yes (cardiac stents) Abdominal, Appendectomy, Coronary Stent, Hysterectomy Respiratory: No Cardiac: Yes Atrial Fibrillation, Coronary Artery Disease, Hypertension Neurological: No Reproductive Disorders: No Genitourinary: Yes Bladder Infection, UTI-Chronic Gastrointestinal: No Gastroesophageal Reflux Musculoskeletal: No Osteoporosis Endocrine: No HEENT: Yes (b/l eyes) Cataract Cancer: No Psychosocial: Yes Anxiety Integumentary: No Blood Disorders: No Adverse Reaction/Blood Tranf: No Family Medical History Heart Disease Physical Exam Vital Signs Vital Signs - First Documented 07/31/20 18:20 Pulse 82 Resp 14 B/P (MAP) 152/111 (125) Pulse Ox 94 O2 Delivery Room Air Capillary Refill : Height, Weight, BMI Height: 5'5.00" Weight: 155lbs. 6.0oz. [id number]; 26.00 BMI Method:Actual General Appearance: No Apparent Distress, WD/WN, Other (Alert and oriented very pleasant no distress) HEENT: PERRL/EOMI, TMs Normal Neck: Full Range of Motion, Normal Inspection Respiratory: No Accessory Muscle Use, No Respiratory Distress Cardiovascular: Regular Rate, Rhythm, Normal Peripheral Pulses Gastrointestinal: Normal Bowel Sounds, Non Tender, Soft Extremity: Normal Capillary Refill, Normal Inspection Neurologic/Psychiatric: Alert, Oriented x3 Skin: Normal Color, Warm/Dry Progress/Results/Core Measures Results/Orders Lab Results Laboratory Tests Test 07/31/20 18:27 Range/Units White Blood Count 9.9 4.3-11.0 10^3/uL Red Blood Count 4.71 3.80-5.11 10^6/uL Hemoglobin 13.8 11.5-16.0 g/dL Hematocrit 44 35-52 % Mean Corpuscular Volume 93 80-99 fL Mean Corpuscular Hemoglobin 29 25-34 pg Mean Corpuscular Hemoglobin Concent 31 L 32-36 g/dL Red Cell Distribution Width 13.0 10.0-14.5 % Platelet Count 347 130-400 10^3/uL Mean Platelet Volume 10.6 9.0-12.2 fL Immature Granulocyte % (Auto) 0 % Neutrophils (%) (Auto) 73 42-75 % Lymphocytes (%) (Auto) 17 12-44 % Monocytes (%) (Auto) 8 0-12 % Eosinophils (%) (Auto) 1 0-10 % Basophils (%) (Auto) 0 0-10 % Neutrophils # (Auto) 7.3 1.8-7.8 10^3/uL Lymphocytes # (Auto) 1.6 1.0-4.0 10^3/uL Monocytes # (Auto) 0.8 0.0-1.0 10^3/uL Eosinophils # (Auto) 0.1 0.0-0.3 10^3/uL Basophils # (Auto) 0.0 0.0-0.1 10^3/uL Immature Granulocyte # (Auto) 0.0 0.0-0.1 10^3/uL Prothrombin Time 15.7 H 12.2-14.7 SEC INR Comment 1.2 0.8-1.4 Activated Partial Thromboplast Time 33 24-35 SEC Sodium Level 138 135-145 MMOL/L Potassium Level 4.9 3.6-5.0 MMOL/L Chloride Level 104 98-107 MMOL/L Carbon Dioxide Level 23 21-32 MMOL/L Anion Gap 11 5-14 MMOL/L Blood Urea Nitrogen 30 H 7-18 MG/DL Creatinine 1.57 H 0.60-1.30 MG/DL Estimat Glomerular Filtration Rate 31 BUN/Creatinine Ratio 19 Glucose Level 97 70-105 MG/DL Calcium Level 8.6 8.5-10.1 MG/DL Corrected Calcium 8.6 8.5-10.1 MG/DL Magnesium Level 2.7 H 1.6-2.4 MG/DL Total Bilirubin 0.3 0.1-1.0 MG/DL Aspartate Amino Transf (AST/SGOT) 59 H 5-34 U/L Alanine Aminotransferase (ALT/SGPT) 24 0-55 U/L Alkaline Phosphatase 73 40-136 U/L Myoglobin 180.0 H 10.0-92.0 NG/ML Troponin I 2.613 *H <0.028 NG/ML B-Type Natriuretic Peptide 241.3 H <100.0 PG/ML Total Protein 7.9 6.4-8.2 GM/DL Albumin 4.0 3.2-4.5 GM/DL My Orders Orders - AFIA KIRBY APRN Cbc With Automated Diff (07/31/20 18:21) Magnesium (07/31/20 18:21) Chest 1 View, Ap/Pa Only (07/31/20 18:21) Ekg Tracing (07/31/20 18:21) Comprehensive Metabolic Panel (07/31/20 18:21) Myoglobin Serum (07/31/20 18:) Protime With Inr (07/31/20 18:) Partial Thromboplastin Time (07/31/20 18:21) O2 (07/31/20 18:21) Monitor-Rhythm Ecg Trace Only (07/31/20 18:21) Lipid Panel (08/01/20 06:00) Ed Iv/Invasive Line Start (07/31/20 18:21) BNP (07/31/20 18:21) Troponin I (07/31/20 18:27) Vital Signs/I&O 07/31/20 07/31/20 18:20 18:20 Pulse 82 Resp 14 B/P (MAP) 152/111 (125) Pulse Ox 94 O2 Delivery Room Air Room Air Departure Communication (Admissions) Time/Spoke to Admitting Phy: 20:[address] Medina and Dr. Sanz. We'll admit, continue her home antiplatelet and anticoagulant medications. She is pain-free at this time. Impression Primary Impression: Non-STEMI (non-ST elevated myocardial infarction) Additional Impression: CAD (coronary artery disease) Disposition: ADMITTED INPATIENT Condition: Stable Admissions Decision to Admit Reason: Admit from ER (General) Decision to Admit/Date: Jul 31, 2020 Time/Decision to Admit Time: 20:47 Departure-Patient Inst. Referrals: GORDO OVERTON DO (PCP/Family) Primary Care Physician AFIA KIRBY GLASS DESIGNER Jul 31, 2020 18:24
[2020-07-31 18:45] LABS: BASOPHILS % (AUTO) 0 % (0-10); EOSINOPHILS # (AUTO) 0.1 10^3/uL (0.0-0.3); EOSINOPHILS % (AUTO) 1 % (0-10); HEMATOCRIT 44 % (35-52); HEMOGLOBIN 13.8 g/dL (11.5-16.0); LYMPHOCYTES # (AUTO) 1.6 10^3/uL (1.0-4.0); LYMPHOCYTES % (AUTO) 17 % (12-44); MEAN CORPUSCULAR HEMOGLOBIN 29 pg (25-34); MEAN CORPUSCULAR HGB CONC 31 g/dL (32-36); MEAN CORPUSCULAR VOLUME 93 fL (80-99); MEAN PLATELET VOLUME 10.6 fL (9.0-12.2); MONOCYTES # (AUTO) 0.8 10^3/uL (0.0-1.0); MONOCYTES % (AUTO) 8 % (0-12); NEUTROPHILS # (AUTO) 7.3 10^3/uL (1.8-7.8); NEUTROPHILS % (AUTO) 73 % (42-75); PLATELET COUNT 347 10^3/uL (130-400); WHITE BLOOD COUNT 9.9 10^3/uL (4.3-11.0)
[2020-07-31 18:49] LABS: INR 1.2 (0.8-1.4); PROTHROMBIN TIME PATIENT 15.7 SEC (12.2-14.7)
--- NOTE | 2020-07-31 18:55 | Diagnostic Imaging Report ---
EXAMINATION: Chest 1 view HISTORY: Chest pain COMPARISON: Chest radiograph 04/20/2019 FINDINGS: Heart size is mildly enlarged. A vascular stent is noted overlying the left mediastinum. A loop recorder is present. Pulmonary vasculature is normal. The lungs are clear without consolidation, pleural effusion, or pneumothorax. The osseous structures are intact. IMPRESSION: 1. No acute radiographic abnormality in the chest. Dictated by: Dictated on workstation # [id number]
[2020-07-31 18:58] LABS: CALCIUM 8.6 MG/DL (8.5-10.1)
[2020-07-31 18:59] LABS: TOTAL PROTEIN 7.9 GM/DL (6.4-8.2)
[2020-07-31 19:01] LABS: BILIRUBIN,TOTAL 0.3 MG/DL (0.1-1.0)
[2020-07-31 19:03] LABS: CREATININE SERUM 1.57 MG/DL (0.60-1.30)
[2020-07-31 19:05] LABS: MAGNESIUM 2.7 MG/DL (1.6-2.4)
[2020-07-31 19:46] LABS: POTASSIUM 4.9 MMOL/L (3.6-5.0)
--- NOTE | 2020-07-31 21:18 | NUR ---
ATTEMPTED TO CONTACT DAUGHTER DOROTHY MAX TO INFORM HER ABOUT PATIENT ADMISSION. 3 ATTEMPTS MADE, NO VOICE MAIL.
[2020-07-31 21:20] VITALS: BP 115/93
[2020-07-31 21:28] VITALS: BP 142/103
--- NOTE | 2020-07-31 21:35 | NUR ---
RECEIVED CALL FROM PATIENT'S DAUGHTER. PASSWORD VERIFIED AND UPDATED HER ON PATIENT CONDITION.
[2020-07-31 21:45] VITALS: BP 131/84
[2020-07-31] MEDS ORDERED: morphine INJ 4 MG/ML 1 ML (VIAL/SYRINGE) IV PRN (21:45)
[2020-07-31] MEDS ORDERED: ONDANSETRON 4 MG/2 ML (SDV) Z0FRAN IV PRN (21:45)
[2020-07-31] MEDS ORDERED: NITROGLYCERIN 0.4 MG SL TABS BTL 25'S SL PRN (21:45)
[2020-07-31 22:00] VITALS: BP 124/94
[2020-07-31] MEDS: LACTATED RINGERS 1,000 ML IV SCH (22:00)
[2020-07-31 22:15] VITALS: BP 131/99
[2020-07-31 23:00] VITALS: BP 97/66
[2020-08-01] VITALS (17 sets, daily range): BP systolic 102–142; BP diastolic 65–102
[2020-08-01 05:30] LABS: BASOPHILS % (AUTO) 0 % (0-10); EOSINOPHILS # (AUTO) 0.1 10^3/uL (0.0-0.3); EOSINOPHILS % (AUTO) 0 % (0-10); HEMATOCRIT 45 % (35-52); HEMOGLOBIN 14.2 g/dL (11.5-16.0); LYMPHOCYTES # (AUTO) 1.4 10^3/uL (1.0-4.0); LYMPHOCYTES % (AUTO) 11 % (12-44); MEAN CORPUSCULAR HEMOGLOBIN 30 pg (25-34); MEAN CORPUSCULAR HGB CONC 31 g/dL (32-36); MEAN CORPUSCULAR VOLUME 94 fL (80-99); MONOCYTES # (AUTO) 1.1 10^3/uL (0.0-1.0); MONOCYTES % (AUTO) 8 % (0-12); NEUTROPHILS % (AUTO) 80 % (42-75); PLATELET COUNT 285 10^3/uL (130-400); WHITE BLOOD COUNT 12.5 10^3/uL (4.3-11.0)
[2020-08-01 05:42] LABS: ALBUMIN 3.7 GM/DL (3.2-4.5); POTASSIUM 3.9 MMOL/L (3.6-5.0)
[2020-08-01 05:43] LABS: CALCIUM 8.7 MG/DL (8.5-10.1)
[2020-08-01 05:44] LABS: TOTAL PROTEIN 6.5 GM/DL (6.4-8.2)
[2020-08-01 05:46] LABS: BILIRUBIN,TOTAL 0.5 MG/DL (0.1-1.0)
[2020-08-01 05:48] LABS: CREATININE SERUM 1.27 MG/DL (0.60-1.30)
--- NOTE | 2020-08-01 08:37 | History & Physical-Hospitalist ---
History of Present Illness HPI/Chief Complaint CC: Chest pain with unstable angina HPI: This is an 84yoWF clinic pt of mine with a PMH of AF with severe heart disease with six stents in the past who presents to the [facility] ER with chest pain. Pt was found to have findings consistent with acute coronary syndrome and was therefore admitted. Cardiology has been consulted and will undergo a cardiac catheterization. At this current time she denies any significant other issues other than mild SOB that she feels is from her heart. We will await cardiology evaluation of the cardiac catheterization procedure. Source: patient, RN/MD Exam Limitations: no limitations Date Seen 08/01/20 Time Seen by a Provider: 10:00 Attending Physician Giovana Hernandez DO PCP Giovana Hernandez DO Referring Physician Date of Admission Jul 31, 2020 at 19:51 Home Medications & Allergies Home Medications Reviewed patient Home Medication Reconciliation performed by pharmacy medication reconciliations product development technician and/or nursing. Patients Allergies have been reviewed. Allergies Allergies Coded Allergies Penicillins (Unverified Allergy, Mild, 04/19/09) Past Sfymbkm-Bzetjs-Gzucox Hx Past Med/Social Hx: Reviewed Nursing Past Med/Soc Hx, Reviewed and Corrections made Patient Social History Marrital Status: Employed/Student: retired Alcohol Use: Rarely Uses Recreational Drug Use: No Smoking Status: Never a Smoker 2nd Hand Smoke Exposure: No Recent Foreign Travel: No Contact w/other who traveled: No Recent Hopitalizations: No Recent Infectious Disease Expo: No Immunizations Up To Date Date of Pneumonia Vaccine: Jun 01, 2018 Date of Influenza Vaccine: May 31, 2020 Seasonal Allergies Seasonal Allergies: No Past Medical History Surgeries: Abdominal, Appendectomy, Coronary Stent, Hysterectomy Cardiac: Atrial Fibrillation, Coronary Artery Disease, Hypertension Reproductive: No Genitourinary: Bladder Infection, UTI-Chronic Gastrointestinal: Gastroesophageal Reflux Musculoskeletal: Osteoporosis HEENT: Cataract Psychosocial: Anxiety History of Blood Disorders: No Adverse Reaction to Blood [place]: No Family History Heart Disease Review of Systems Constitutional: see HPI, malaise, weakness Cardiovascular: chest pain Physical Exam Physical Exam Vital Signs Vital Signs - First Documented 07/31/20 08/01/20 18:20 03:00 Pulse 82 Resp 14 B/P (MAP) 152/111 (125) Pulse Ox 94 O2 Delivery Room Air O2 Flow Rate 2.00 Capillary Refill : Less Than 3 Seconds Height, Weight, BMI Height: 5'5.00" Weight: 155lbs. 6.0oz. [id number]; 25.97 BMI Method:Actual General Appearance: No Apparent Distress, Chronically ill Eyes: Right Eye Normal Inspection, Right Eye PERRL HEENT: PERRL/EOMI, Normal ENT Inspection, Pharynx Normal, Moist Mucous Membranes Neck: Full Range of Motion, Normal Inspection, Non Tender Respiratory: Chest Non Tender, Lungs Clear, Normal Breath Sounds, No Accessory Muscle Use, No Respiratory Distress Cardiovascular: Regular Rate, Rhythm, No Edema, No Gallop, No JVD, No Murmur, Normal Peripheral Pulses Gastrointestinal: Normal Bowel Sounds, No Organomegaly, No Pulsatile Mass, Non Tender, Soft Back: Normal Inspection, No CVA Tenderness, No Vertebral Tenderness Extremity: Normal Capillary Refill, Normal Inspection, Normal Range of Motion, Non Tender, No Calf Tenderness, No Pedal Edema Neurologic/Psychiatric: Alert, Oriented x3, No Motor/Sensory Deficits, Normal Mood/Affect Skin: Normal Color, Warm/Dry Lymphatic: No Adenopathy Results Results/Procedures Labs Laboratory Tests 07/31/20 18:27 08/01/20 05:15 08/02/20 04:07 Patient resulted labs reviewed. Assessment/Plan Admission Diagnosis Assessment: Unstable angina CAD previous 6 stents HTN HLP PAF Plan: Home meds Cath today Admission Status: Inpatient Order (span 2 midnights) Reason for Inpatient Admission: unstable angina Diagnosis/Problems Diagnosis/Problems (1) Non-STEMI (non-ST elevated myocardial infarction) Status: Acute (2) CAD (coronary artery disease) Status: Chronic (3) Paroxysmal atrial fibrillation Status: Chronic Clinical Quality Measures AMI/AHF: ASA po Prior to arrival: Yes DVT/VTE Risk/Contraindication: Risk Factor Score Per Nursin RFS Level Per Nursing on Admit: 4+=Very High GIOVANA HERNANDEZ DO Aug 01, 2020 08:37
[2020-08-01] MEDS: LACTATED RINGERS 1,000 ML IV SCH (08:56)
[2020-08-01] MEDS: CLOPIDOGREL 75 MG (PLAVIX) TABLET PO SCH (08:56)
[2020-08-01] MEDS: ASPIRIN 81 MG CHEW (CHILDREN'S ASA) PO SCH (08:56)
--- NOTE | 2020-08-01 09:04 | Consultation-Cardiology ---
HPI-Cardiology Cardiology Consultation: Date of Consultation 08/01/20 Time Seen by a Provider: 09:15 Date of Admission 07-31-2020 Attending Physician Giovana Hernandez DO Admitting Physician Giovana Hernandez DO Consulting Physician [place]RB[place] HPI: Chief Complaint: Chest pain NSTEMI Ms. Bravo is an 84 year old female admitted to 511 from the ED. She reports around 8:00 yesterday morning she developed chest pain which radiated across her chest which she describes as a "hurting". She reports it did not change with activity. The discomfort was constant throughout the day. She reports around 3:00 p.m the chest pain became more intense. She reports she then developed a dry cough. She reports she has had increasing SOB for the last 3 days. She reports the pain has never completely resolved since it started. She reports this morning the chest pain has been somewhat worse once again, describing it as a "hurting" pain. She reports feeling nauseated this morning. She denies any palpitations, syncope, near syncope, or LE swelling. Review of Systems-Cardiology Review of Systems Constitutional: No chills, No fever Eyes: No vision change Ears/Nose/Throat: No recent hearing loss Respiratory: As described under HPI Cardiovascular: As described under HPI Gastrointestinal: No constipation, No diarrhea; nausea; No vomiting Genitourinary: No dysuria Musculoskeletal: no symptoms reported Skin: No rash on exposed areas, No ulcerations on exposed areas Psychiatric/Neurological: No anxiety, No depression, No seizure, No focal weakness, No syncope Hematologic: No bleeding abnormalities AAW-Vbicte-Atzsgr Hx Patient Social History Alcohol Use: Rarely Uses Recreational Drug Use: No Smoking Status: Never a Smoker 2nd Hand Smoke Exposure: No Recent Foreign Travel: No Recent Infectious Disease Expo: No Hospitalization with Isolation: Denies Immunizations Up To Date Date of Pneumonia Vaccine: Jun 01, 2018 Date of Influenza Vaccine: May 31, 2020 Past Medical History PMH As described under Assessment. Family Medical History Family Medical History: Reported family history of father and mother having CAD. Allergies and Home Medications Allergies Coded Allergies: Penicillins (Unverified Allergy, Mild, 04/19/09) Home Medications Acetaminophen 325 Mg Capsule, 325-650 MG PO Q8H PRN for PAIN-MILD (1-4), (Reported) Ascorbate Calcium 500 Mg Tablet, 500 MG PO 1200, (Reported) Cephalexin 250 Mg Capsule, 250 MG PO HS, (Reported) Clopidogrel Bisulfate 75 Mg Tablet, 75 MG PO 1200, (Reported) Cranberry Extract 500 Mg Tablet, 500 MG PO 1200, (Reported) Dronedarone HCl 400 Mg Tablet, 400 MG PO 1700, (Reported) Furosemide 20 Mg Tablet, 20 MG PO DAILY, (Reported) Metoprolol Succinate 25 Mg Tab.er.24h, 25 MG PO HS, (Reported) Milk Thistle/Nac/Dandel/Turmer 1 Each Tablet, 1 EACH PO DAILY, (Reported) Potassium Chloride 10 Meq Tablet.er, 10 MEQ PO DAILY, (Reported) Rivaroxaban 15 Mg Tablet, 15 MG PO 1700, (Reported) Rosuvastatin Calcium 5 Mg Tablet, 5 MG PO HS, (Reported) Zolpidem Tartrate 5 Mg Tablet, 5 MG PO HS PRN for SLEEP, (Reported) Physical Exam-Cardiology Physical Exam Vital Signs/I&O 08/01/20 08/01/20 08/01/20 08/01/20 05:00 06:42 08:00 09:00 Pulse 93 98 Resp 18 B/P (MAP) 142/94 Pulse Ox 94 96 O2 Delivery Nasal Cannula Room Air O2 Flow Rate 2.00 2.00 08/01/20 08/01/20 08/01/20 08/01/20 09:11 11:35 11:35 13:03 Temp 36.4 Pulse 96 105 94 Resp 20 B/P (MAP) 113/84 (94) 128/78 (95) 136/88 (104) Pulse Ox 97 93 90 92 O2 Delivery Room Air Room Air Room Air Room Air 08/01/20 08/01/20 08/01/20 08/01/20 13:15 13:45 13:50 13:55 Pulse 98 88 87 86 Resp 19 18 18 B/P (MAP) 115/94 (101) 125/102 (110) 118/99 (105) Pulse Ox 92 96 96 O2 Delivery Room Air Room Air Room Air 08/01/20 08/01/20 08/01/20 14:00 14:05 16:00 Temp 36.6 Pulse 86 94 90 Resp 20 18 19 B/P (MAP) 111/75 (87) 118/74 (89) 129/91 (104) Pulse Ox 95 97 95 O2 Delivery Room Air Room Air Room Air Capillary Refill : Less Than 3 Seconds Constitutional: AAO x 3, well-developed, well-nourished HEENT: PERRL, hearing is well preserved, oral hygience is good Neck: No carotid bruit; carotid pulses are 2 + bilaterally Respiratory: No accessory muscle use, No respiratory distress; chest expansion is symmetric, chest is bilaterally symmetric, lungs clear to auscultation Cardiovascular: irregularly irregular; No JVD; S1 and S2, systolic murmur (soft) Gastrointestinal: No tender; soft, round, audible bowel sounds Extremities: no lower extremity edema bilateral Neurologic/Psychiatric: grossly intact (moves all extremities) Skin: No rash on exposed areas, No ulcerations on exposed areas Data Review Labs Laboratory Tests 07/31/20 18:27: White Blood Count 9.9, Red Blood Count 4.71, Hemoglobin 13.8, Hematocrit 44, Mean Corpuscular Volume 93, Mean Corpuscular Hemoglobin 29, Mean Corpuscular Hemoglobin Concent 31L, Red Cell Distribution Width 13.0, Platelet Count 347, Mean Platelet Volume 10.6, Immature Granulocyte % (Auto) 0, Neutrophils (%) (Auto) 73, Lymphocytes (%) (Auto) 17, Monocytes (%) (Auto) 8, Eosinophils (%) (Auto) 1, Basophils (%) (Auto) 0, Neutrophils # (Auto) 7.3, Lymphocytes # (Auto) 1.6, Monocytes # (Auto) 0.8, Eosinophils # (Auto) 0.1, Basophils # (Auto) 0.0, Immature Granulocyte # (Auto) 0.0, Prothrombin Time 15.7H, INR Comment 1.2, Activated Partial Thromboplast Time 33, Sodium Level 138, Potassium Level 4.9, Chloride Level 104, Carbon Dioxide Level 23, Anion Gap 11, Blood Urea Nitrogen 30H, Creatinine 1.57H, Estimat Glomerular Filtration Rate 31, BUN/Creatinine Ratio 19, Glucose Level 97, Calcium Level 8.6, Corrected Calcium 8.6, Magnesium Level 2.7H, Total Bilirubin 0.3, Aspartate Amino Transf (AST/SGOT) 59H, Alanine Aminotransferase (ALT/SGPT) 24, Alkaline Phosphatase 73, Myoglobin 180.0H, Troponin I 2.613*H, B-Type Natriuretic Peptide 241.3H, Total Protein 7.9, Albumin 4.0 08/01/20 05:15: White Blood Count 12.5H, Red Blood Count 4.81, Hemoglobin 14.2, Hematocrit 45, Mean Corpuscular Volume 94, Mean Corpuscular Hemoglobin 30, Mean Corpuscular H emoglobin Concent 31L, Red Cell Distribution Width 12.8, Platelet Count 285, Mean Platelet Volume 10.0, Immature Granulocyte % (Auto) 0, Neutrophils (%) (Auto) 80H, Lymphocytes (%) (Auto) 11L, Monocytes (%) (Auto) 8, Eosinophils (%) (Auto) 0, Basophils (%) (Auto) 0, Neutrophils # (Auto) 10.0H, Lymphocytes # (A uto) 1.4, Monocytes # (Auto) 1.1H, Eosinophils # (Auto) 0.1, Basophils # (Auto) 0.0, Immature Granulocyte # (Auto) 0.0, Sodium Level 139, Potassium Level 3.9, Chloride Level 106, Carbon Dioxide Level 23, Anion Gap 10, Blood Urea Nitrogen 26H, Creatinine 1.27, Estimat Glomerular Filtration Rate 40, BUN/Creatinine Ratio 20, Glucose Level 92, Calcium Level 8.7, Corrected Calcium 8.9, Total Bilirubin 0.5, Aspartate Amino Transf (AST/SGOT) 30, Alanine Aminotransferase (A LT/SGPT) 18, Alkaline Phosphatase 76, Troponin I 2.836*H, Total Protein 6.5, Albumin 3.7, Triglycerides Level 102, Cholesterol Level 170, LDL Cholesterol Direct 86, VLDL Cholesterol 20, HDL Cholesterol 68H 08/01/20 12:35: Activated Partial Thromboplast Time > 200*H Radiology NAME: MORENA BRAVO [facility] REC#: [id number] PT STATUS: REG ER : 1935 PHYSICIAN: AFIA KIRBY APRN ADMIT DATE: 07/31/20/ER Signed Date of Exam:07/31/20 CHEST 1 VIEW, AP/PA ONLY EXAMINATION: Chest 1 view HISTORY: Chest pain COMPARISON: Chest radiograph 04/20/2019 FINDINGS: Heart size is mildly enlarged. A vascular stent is noted overlying the left mediastinum. A loop recorder is present. Pulmonary vasculature is normal. The lungs are clear without consolidation, pleural effusion, or pneumothorax. The osseous structures are intact. IMPRESSION: 1. No acute radiographic abnormality in the chest. Dictated by: Dictated on workstation # [id number] Dict: 07/31/201840 Trans: 07/31/201909 [facility] [id number] Interpreted by: BENNY MEZA DO Electronically signed by: BENNY MEZA DO 07/31/201909 ECG Impression ECG Initial ECG Impression: Atrial Fibrillation A/P-Cardiology Assessment/Admission Diagnosis NSTEMI Chest pain Coronary artery disease with history of PTCA and stents to LAD in 2009 with cardiac catheterization 09/20/2013 revealing patent stents in the proximal and mid LAD with a step down beyond stent. Mild irregularity at the distal LAD. Mild irregularity the distal circumflex proximal artery. Repeat cardiac catheterization done August 20, 2017 revealed moderate mid LAD disease with negative fractional flow reserve. Patent stents in proximal LAD, had another cardiac catheterization September 2018 after non-ST elevation myocardial infarction resulted in another stent in the distal LAD using Stephania 2.25 x 8 mm with good results. Per Dr. Sanchezi Shortness of breath Severe mitral regurgitation, underwent percutaneous transcatheter repair of the mitral valve with Dr. Hines and David at in July 2019, repeat echo done in December 2019 showing moderate stenosis, valve area 2.5 cm. With severe regurgitation. Ejection fraction 35-40 percent. PA pressure 45-50 mmHg. Following with [facility] Frequent PVCs with ventricular bigeminy, intolerant to Mexitil, the patient had severe nausea was unable to tolerated and it was discontinued H/O Atrial fibrillation with rapid ventricular rate, status post EROS with successful cardioversion August 2017. Was intolerant to amiodarone secondary to elevated LFTs and increased fatigue. Intolerance to Mexiletine with severe nausea and vomiting, intolerant to sotalol with QT prolongation. Had a loop recorder, underwent EROS and cardioversion and started on Multaq. Patient taking Multaq daily secondary to side effect of nausea with twice a day dosing. Currently in a-fib with controlled rate per EKG of Jul 31, 2020 [id number] score of 5, patient is maintained on Xarelto. Hypertension Hyperlipidemia History of elevated LFTs while on amiodarone and Lipitor. Both medications were discontinued. Currently on Crestor Mild bilateral carotid artery stenosis. Last ultrasound was done in July [address] Medina Osteoporosis. History of chronic renal insufficiency Discussion and Recomendations NSTEMI with continuing chest discomfort. Advise cardiac cath. We have discussed the procedure, benefits, risks, including that of worsening renal insufficiency in the face of existing renal insufficiency; of cardiac cath with possible ad hoc coronary intervention to which she verbalizes understanding and provides informed consent. Continue OAC with Xarelto d/t chronic a-fib Continue Plavix Monitor lab closely Continue home medications Further recs will be based on her hospital course We would like to thank medical services for this consult Clinical Quality Measures AMI/AHF: ASA po Prior to arrival: Yes DVT/VTE Risk/Contraindication: Risk Factor Score Per Nursin RFS Level Per Nursing on Admit: 4+=Very High [place]ONNER Aug 01, 2020 09:04
[2020-08-01] MEDS ORDERED: HEParin (CATH LAB) 2,000 ML IV ONE (09:44)
[2020-08-01] MEDS ORDERED: NS IV 1000 ML 1,000 ML ONE (09:44)
[2020-08-01] MEDS ORDERED: LIDOCAINE 1% INJ 20 ML 20 ML VIAL ONE (09:44)
[2020-08-01] MEDS ORDERED: fentaNYL INJECTION 100 MCG/2 ML AMP ONE (09:45)
[2020-08-01] MEDS ORDERED: MIDAZOLAM 5 MG/5 ML (VERSED) VIAL ONE (09:45)
[2020-08-01] MEDS ORDERED: EPTIFIBATIDE BOLUS 20 ML IV ONE (10:29)
[2020-08-01] MEDS ORDERED: HEParin 1000 UNIT/ML (10ML VIAL) FOR BOLUS ONE (10:29)
[2020-08-01] MEDS ORDERED: CLOPIDOGREL 300 MG (PLAVIX) TABLET PO ONE (10:50)
[2020-08-01] MEDS ORDERED: ASPIRIN 81 MG CHEW (CHILDREN'S ASA) ONE (10:50)
--- NOTE | 2020-08-01 11:17 | Cardiac Procedure Note-CS/ASA ---
Pre-Procedure Note Pre-Op Procedure Note H&P Reviewed The H&P was reviewed, patient examined and no changes noted. Date H&P Reviewed: Aug 01, 2020 Time H&P Reviewed: 10:15 Conscious Sedation Pre-Proced Time 10:15 ASA Score 3, 4 For ASA 3 and 4: Consider anesthesia and medical clearance. Also, for patients with a history of failed moderate sedation consider anesthesia. Airway Lungs Heart ASA score ASA 1: a normal healthy patient ASA 2: a patient with a mild systemic disease (mid diabetes, controlled hypertension, obesity ASA 3: a patient with a severe systemic disease that limits activity (angina, COPD, prior Myocardial infarction) ASA 4: a patient with an incapacitating disease that is a constant threat to life (CHF, renal failure) ASA 5: a moribund patient not expected to survive 24 hrs. (ruptured aneurysm) ASA 6: a declared brain- patient whose organs are being harvested. For emergent operations, add the letter E after the classification Mallampati Classification Grade 2 Sedation Plan Analgesia, Amnesia, Plan communicated to team members, Discussed options with patient/fam, Discussed risks with patient/fam The patient is an appropriate candidate to undergo the planned procedure, sedation, and anesthesia. The patient immediately re-assessed prior to indication. DEANNA CHACKO MD FACP FAC CCDS Aug 01, 2020 11:17
[2020-08-01] MEDS ORDERED: PATIENT MAY USE OWN MEDS, ALL PO SCH (11:30)
[2020-08-01] MEDS: NS IV 1000 ML 1,000 ML IV SCH ×2 (11:31→19:54)
--- NOTE | 2020-08-01 11:35 | Consultation-Cardiology ---
HPI-Cardiology Cardiology Consultation: Date of Consultation 08/01/20 Time Seen by a Provider: 10:10 Date of Admission 07/31/20 Attending Physician Giovana Hernandez DO Admitting Physician Giovana Hernandez DO Consulting Physician DEANNA CHACKO MD, FACP, [facility]ACC, [facility], CCDS Primary air breaker operator: Dr Medina HPI: Chief Complaint: Reason for Cardiology consultation. NSTEMI and continuing angina HPI Ms. Bravo is an 84 year old female admitted to [address] ED to Dr Hernandez with Dr Medina in Card consult. We have taken over Card call from Dr Medina this morning. Pt reports that around 8:00 yesterday morning she developed chest pain which radiated across her chest which she describes as a "hurting". She reports it did not change with activity. The discomfort was constant throughout the day. She reports around 3:00 p.m the chest pain became more intense. She reports she then developed a dry cough. She reports she has had increasing SOB for the last 3 days. She reports the pain improved after hospital admission but has never completely resolved since it started. She reports this morning the chest pain has been worse once again, describing it as a "hurting" pain. She reports feeling nauseated this morning. She denies any palpitations, syncope, near syncope, or LE swelling. Review of Systems-Cardiology Review of Systems Constitutional: No chills, No fever Eyes: No vision change Ears/Nose/Throat: No recent hearing loss Respiratory: As described under HPI Cardiovascular: As described under HPI Gastrointestinal: No constipation, No diarrhea; nausea; No vomiting Genitourinary: No dysuria Musculoskeletal: no symptoms reported Skin: No rash on exposed areas, No ulcerations on exposed areas Psychiatric/Neurological: No anxiety, No depression, No seizure, No focal we akness, No syncope Hematologic: No bleeding abnormalities STR-Okbzoz-Mginth Hx Patient Social History Alcohol Use: Rarely Uses Recreational Drug Use: No Smoking Status: Never a Smoker 2nd Hand Smoke Exposure: No Recent Foreign Travel: No Recent Infectious Disease Expo: No Hospitalization with Isolation: Denies Immunizations Up To Date Date of Pneumonia Vaccine: Jun 01, 2018 Date of Influenza Vaccine: May 31, 2020 Past Medical History PMH As described under Assessment. Family Medical History Family Medical History: Reported family history of father and mother having CAD. Allergies and Home Medications Allergies Coded Allergies: Penicillins (Unverified Allergy, Mild, 04/19/09) Home Medications Cholecalciferol (Vitamin D3) 1,000 Unit Capsule, 1,000 UNIT PO 1200, (Reported) Clopidogrel Bisulfate 75 Mg Tablet, 75 MG PO 1200, (Reported) Cranberry Extract 500 Mg Tablet, 500 MG PO 1200, (Reported) Dronedarone HCl 400 Mg Tablet, 400 MG PO BID Prescribed by: VERÓNICA MEDINA on 04/21/19 1251 Furosemide 20 Mg Tablet, 20 MG PO DAILY, (Reported) Ibuprofen 200 Mg Tablet, 200 MG PO TID PRN for PAIN-MILD, (Reported) Metoprolol Succinate 25 Mg Tab.er.24h, 25 MG PO HS, (Reported) [place]-3/Dha/Epa/Fish Oil 1 Each Capsule, 2 CAP PO BID, (Reported) Ondansetron 4 Mg Tab.rapdis, 4 MG PO Q6H PRN for NAUSEA/VOMITING Prescribed by: MEAGAN AYON on 03/13/20 1035 Potassium Chloride 10 Meq Tablet.er, 10 MEQ PO DAILY, (Reported) Rivaroxaban 15 Mg Tablet, 15 MG PO 1800, (Reported) Rosuvastatin Calcium 5 Mg Tablet, 5 MG PO HS, (Reported) Patient Home Medication List Home Medication List Reviewed: Yes Physical Exam-Cardiology Physical Exam Vital Signs/I&O 08/01/20 08/01/20 08/01/20 08/01/20 00:00 00:00 01:00 01:00 Temp 35.04524 Pulse 80 86 91 Resp 20 18 B/P (MAP) 102/67 117/68 Pulse Ox 92 91 O2 Delivery Room Air 08/01/20 08/01/20 08/01/20 08/01/20 02:00 03:00 04:00 04:00 Temp 35.00710 Pulse 93 102 96 Resp 18 20 20 B/P (MAP) 106/73 136/93 128/94 Pulse Ox 95 94 95 O2 Delivery Nasal Cannula O2 Flow Rate 2.00 2.00 2.00 08/01/20 08/01/20 08/01/20 08/01/20 05:00 06:42 08:00 09:00 Pulse 93 98 Resp 18 B/P (MAP) 142/94 Pulse Ox 94 96 O2 Delivery Nasal Cannula Room Air O2 Flow Rate 2.00 2.00 12/1/20 09:11 Temp 36.4 Pulse 96 Resp 20 B/P (MAP) 113/84 (94) Pulse Ox 97 O2 Delivery Room Air Capillary Refill : Less Than 3 Seconds Constitutional: AAO x 3, well-developed, well-nourished HEENT: PERRL, hearing is well preserved, oral hygience is good Neck: No carotid bruit; carotid pulses are 2 + bilaterally Respiratory: No accessory muscle use, No respiratory distress; chest expansion is symmetric, chest is bilaterally symmetric, lungs clear to auscultation Cardiovascular: irregularly irregular; No JVD; S1 and S2, systolic murmur (soft) Gastrointestinal: No tender; soft, round, audible bowel sounds Extremities: no lower extremity edema bilateral Neurologic/Psychiatric: grossly intact (moves all extremities) Skin: No rash on exposed areas, No ulcerations on exposed areas Data Review Labs Laboratory Tests 07/31/20 18:27: White Blood Count 9.9, Red Blood Count 4.71, Hemoglobin 13.8, Hematocrit 44, Mean Corpuscular Volume 93, Mean Corpuscular Hemoglobin 29, Mean Corpuscular Hemoglobin Concent 31L, Red Cell Distribution Width 13.0, Platelet Count 347, Mean Platelet Volume 10.6, Immature Granulocyte % (Auto) 0, Neutrophils (%) (Auto) 73, Lymphocytes (%) (Auto) 17, Monocytes (%) (Auto) 8, Eosinophils (%) (Auto) 1, Basophils (%) (Auto) 0, Neutrophils # (Auto) 7.3, Lymphocytes # (Auto) 1.6, Monocytes # (Auto) 0.8, Eosinophils # (Auto) 0.1, Basophils # (Auto) 0.0, Immature Granulocyte # (Auto) 0.0, Prothrombin Time 15.7H, INR Comment 1.2, Activated Partial Thromboplast Time 33, Sodium Level 138, Potassium Level 4.9, Chloride Level 104, Carbon Dioxide Level 23, Anion Gap 11, Blood Urea Nitrogen 30H, Creatinine 1.57H, Estimat Glomerular Filtration Rate 31, BUN/Creatinine Ratio 19, Glucose Level 97, Calcium Level 8.6, Corrected Calcium 8.6, Magnesium Level 2.7H, Total Bilirubin 0.3, Aspartate Amino Transf (AST/SGOT) 59H, Alanine Aminotransferase (ALT/SGPT) 24, Alkaline Phosphatase 73, Myoglobin 180.0H, Troponin I 2.613*H, B-Type Natriuretic Peptide 241.3H, Total Protein 7.9, Albumin 4.0 08/01/20 05:15: White Blood Count 12.5H, Red Blood Count 4.81, Hemoglobin 14.2, Hematocrit 45, Mean Corpuscular Volume 94, Mean Corpuscular Hemoglobin 30, Mean Corpuscular Hemoglobin Concent 31L, Red Cell Distribution Width 12.8, Platelet Count 285, Mean Platelet Volume 10.0, Immature Granulocyte % (Auto) 0, Neutrophils (%) (Auto) 80H, Lymphocytes (%) (Auto) 11L, Monocytes (%) (Auto) 8, Eosinophils (%) (Auto) 0, Basophils (%) (Auto) 0, Neutrophils # (Auto) 10.0H, Lymphocytes # (Auto) 1.4, Monocytes # (Auto) 1.1H, Eosinophils # (Auto) 0.1, Basophils # (Auto) 0.0, Immature Granulocyte # (Auto) 0.0, Sodium Level 139, Potassium Level 3.9, Chloride Level 106, Carbon Dioxide Level 23, Anion Gap 10, Blood Urea Nitrogen 26H, Creatinine 1.27, Estimat Glomerular Filtration Rate 40, BUN/Creatinine Ratio 20, Glucose Level 92, Calcium Level 8.7, Corrected Calcium 8.9, Total Bilirubin 0.5, Aspartate Amino Transf (AST/SGOT) 30, Alanine Aminotransferase (ALT/SGPT) 18, Alkaline Phosphatase 76, Troponin I 2.836*H, Total Protein 6.5, Albumin 3.7, Triglycerides Level 102, Cholesterol Level 170, LDL Cholesterol Direct 86, VLDL Cholesterol 20, HDL Cholesterol 68H Laboratory Tests 07/31/20 18:27 08/01/20 05:15 A/P-Cardiology Assessment/Admission Diagnosis NSTEMI and post-infarction angina Coronary artery disease with history of PTCA and stents to LAD in 2009 with cardiac catheterization 09/20/2013 revealing patent stents in the proximal and mid LAD; cath in 09/2018, after NSTEMI, showed distal edge stenosis in LAD stent that was treated with Stephania 2.25 x 8 mm. Cath on 08/01/20 showed 99% distal edge restenosis in a long LAD stented segment. This was treated with balloon angioplasty with no significant residual stenosis. Mild CAD elsewhere. LVEDP 28 mmHg Valvular heart disease followed at [facility]: h/o severe mitral regurgitation treated with percutaneous transcatheter repair of the mitral valve with Dr. Hines and David at [facility] in July 2019; repeat echo done in December 2019 showing moderate stenosis, valve area 2.5 cm with severe regurgitation. Ejection fraction 35-40 percent. PA pressure 45-50 mmHg Frequent PVCs with ventricular bigeminy, intolerant to Mexitil, the patient had severe nausea was unable to tolerated and it was discontinued H/O Atrial fibrillation with rapid ventricular rate, status post EROS with successful cardioversion August 2017. Was intolerant to amiodarone secondary to elevated LFTs and increased fatigue. Intolerance to Mexiletine with severe nausea and vomiting, intolerant to sotalol due to QT prolongation. ILR in place. H/o Multaq daily secondary to side effect of nausea with twice a day dosing. Currently in a-fib with controlled rate, per EKG of Jul 31, 2020. [id number] score of 5, patient is maintained on Xarelto. Hypertension Hyperlipidemia History of elevated LFTs while on amiodarone and Lipitor. Both medications were discontinued. Has tolerated Crestor, according to history Mild bilateral carotid artery stenosis. Last ultrasound was done in July [address] Medina Osteoporosis. CKD 3-4 Discussion and Recomendations Complex management Urgent cath (after informed consent) due to unstable symptoms. See above Continue DAPT for now. Single antiplatelet agent in a few days because also on Xarelto for stroke prophylaxis Continue slow hydration to reduce risk for contrast nephropathy Monitor labs closely Adjust Xarelto to eGFR Add bb for vent rate control Add statin but monitor labs closely because of h/o liver enz elev on amio and statin combination Clinical Quality Measures AMI/AHF: ASA po Prior to arrival: Yes DVT/VTE Risk/Contraindication: Risk Factor Score Per Nursin RFS Level Per Nursing on Admit: 4+=Very High DEANNA CHACKO MD FACP FAC CCDS Aug 01, 2020 11:35
[2020-08-01] MEDS ORDERED: meTOproloL SUCCINATE 50 MG (TOPROL XL) TAB PO NR (11:45)
--- NOTE | 2020-08-01 13:27 | CARDIAC CATHETERIZATION ---
DATE OF SERVICE: 08/01/2020 CARDIAC CATHETERIZATION AND CORONARY INTERVENTION REPORT INDICATION FOR PROCEDURE: The patient is an 84-year-old lady, who is known to have coronary artery disease and he has had multiple coronary stents to the left anterior descending in the past and has been admitted with acute non-ST elevation myocardial infarction and continuing unstable angina. Urgent cardiac catheterization was recommended and carried out after having obtained informed consent for cardiac catheterization and possible ad hoc coronary intervention. DESCRIPTION OF PROCEDURE: She was brought to the cardiac catheterization laboratory in a fasting state. The right groin was prepared and draped in the usual sterile fashion. Lidocaine 1% for local anesthesia. Modified Seldinger technique was used to advance a 6-Lao sheath in the right femoral artery. We used a 6-Lao JL4 catheter for coronary angiography and then proceeded with left coronary intervention that is described below. Following completion of the left coronary intervention, we carried out right coronary angiography with a 6-Lao JR4 catheter and left heart catheterization with a 6-Lao pigtail catheter. Left ventricular angiography was not performed. This was to conserve contrast because the patient has chronic kidney disease stage 3 to 4. At the end of the procedure, the sheath was sutured in place and she was transferred to the floor for manual sheath removal. PERCUTANEOUS INTERVENTION OF THE LEFT ANTERIOR DESCENDING: The left anterior descending artery was exhibiting 99% distal edge restenosis within a long stented segment in the left anterior descending. Antegrade flow was CORA 1. We used a 6-Lao JL4 guide catheter and used a BMW wire to cross the lesion and carried out balloon angioplasty with Emerge 2.0 x 30 mm balloon. This balloon angioplasty was carried out from just distal to the distal edge of the stent and throughout the entire period. Final results are no significant residual stenosis and normal antegrade flow. The patient tolerated the procedure well. She received 5000 units of intravenous heparin and double bolus of Integrilin during the procedure. HEMODYNAMICS: Left ventricular end-diastolic pressure following coronary angiography was 28 mmHg. There is no significant pressure gradient on pullback across the aortic valve. Ascending aortic pressure was 158/93 with a mean of 120 mmHg. CORONARY ANGIOGRAPHY: Coronary calcification is seen. Left main coronary artery does not exhibit significant disease. Left anterior descending artery has a long-stented segment. The distal most stent is known to have been [place] [address] Medina for distal edge restenosis within a long-stented segment. This is known to be a 2.25 mm drug-eluting stent. There was a severe stenosis within the distal part of the stent and distal to the distal edge of the stent. To this, successful balloon angioplasty was carried out, which reduced the stenosis to no significant residual and normal antegrade flow. The first diagonal branch of the left anterior descending artery rises through the standard segment of the left anterior descending and has approximately 50% proximal stenosis. Left circumflex artery does not have significant stenosis. Right coronary artery is dominant and has mild plaques. CONCLUSIONS: 1. Coronary artery disease primarily consisting of 99% distal edge restenosis of a long stented segment of the left anterior descending to which successful balloon angioplasty was carried out with reduction of stenosis to no significant residual and with orthodox of normal antegrade flow. The rest of the coronary arteries have mild disease. 2. Elevated left ventricular end-diastolic pressure. DISCUSSION AND RECOMMENDATIONS: We recommend continuing dual antiplatelet therapy at this time. A few days later, either aspirin or clopidogrel can be stopped because she is also on Xarelto for her chronic atrial fibrillation. Continuing all 3 agents will considerably increase risk of bleeding. We deliberately only carried out balloon angioplasty today because of her history of repeated stent edge restenosis that have been treated with a more stenting, which resolved in a further distal edge restenosis. If this strategy is not successful, we may then need to consider distal edge stenting. At the time of the conclusion of the procedure, the results were excellent. Job ID: [id number] DocumentID: [id number] Dictated Date: 08/01/2020 11:12:33 Nursery Attendant Date: 08/01/2020 12:02:13 Dictated By: DEANNA CHACKO MD, MA, FACP, FACC,
--- NOTE | 2020-08-01 13:40 | NUR ---
DR CHACKO ON UNIT AND THIS RN NOTIFIED DR THAT PT STILL HAS SHEATH IN PLACE BUT HAS A HEMATOMA AND THAT MEHRDAD RN WAS APPLYING PRESSURE TO SITE. THIS RN INFORMED DR CHACKO THAT PPT RESULTS WERE GREATER THAN 200. DR CHACKO STATED TO PULL SHEATH AT THIS TIME.
[2020-08-01] MEDS ORDERED: CEPH250C PO (14:35)
[2020-08-01] MEDS ORDERED: DRON400T2 PO (14:35)
[2020-08-01] MEDS ORDERED: ACET325C7 PO (14:35)
[2020-08-01] MEDS ORDERED: POTA10TA PO (14:35)
[2020-08-01] MEDS ORDERED: RIVA15TA PO (14:35)
[2020-08-01] MEDS ORDERED: ZOLP5TAB PO (14:35)
[2020-08-01] MEDS ORDERED: ASCO-262 PO (14:35)
[2020-08-01] MEDS ORDERED: MILK1TAB PO (14:35)
--- NOTE | 2020-08-01 14:38 | NUR ---
SPOKE WITH THE PT AND WENT THRU THE EXT MED HISTORY TO COMPLETE THE MED REC PT WAS ABLE TO NAME ALL HER MEDICATIONS WELL WHEN/HOW SHE TAKES EACH ACCORDING TO THE PT SHE IS NO LONGER TAKING OXYBUTYNIN ER 10MG - LAST FILLED 05-16-2020 #30/30DS OTC MEDS: CRANBERRY VIT C TYLENOL LIVER TABS
--- NOTE | 2020-08-01 14:43 | NUR ---
orders rec'd for smoking cessation. rapport established with patient. motivational interviewing technique, patient states, "I used to smoke years ago in my teens when everyone did it. Eventually my quit, he was able to quit cold turkey. It took me longer but eventually I quit. I have a son in law now that smokes, but I've bugged him too much about quitting, so I don't say anything anymore." Smoking cessation class information and ANNALEE QUIT information offered, refused.
[2020-08-01] MEDS: RIVAROXABAN 15 MG TABLET (XARELTO) PO SCH (16:43)
[2020-08-01] MEDS ORDERED: RIVAROXABAN 20 MG TABLET (XARELTO) PO SCH (17:00)
[2020-08-01] MEDS ORDERED: ZOLPIDEM 5 MG (AMBIEN) TAB PO PRN (17:30)
[2020-08-01] MEDS ORDERED: ACETAMINOPHEN PO PRN (19:45)
[2020-08-01] MEDS ORDERED: ACETAMINOPHEN 325 MG TABLET PO PRN (20:00)
[2020-08-01] MEDS: CEPHALEXIN 250 MG (KEFLEX) CAP PO SCH (20:16)
[2020-08-01] MEDS ORDERED: HALOPERIDOL 5 MG/ML (HALDOL) VIAL ONE (22:54)
[2020-08-01] MEDS ORDERED: HALOPERIDOL 5 MG/ML (HALDOL) VIAL IM ONE (23:00)
[2020-08-02] VITALS (11 sets, daily range): BP systolic 102–129; BP diastolic 32–92
[2020-08-02] MEDS ORDERED: HALOPERIDOL 5 MG/ML (HALDOL) VIAL IM ONE (00:30)
--- NOTE | 2020-08-02 01:47 | NUR ---
THIS RN RESPONDED TO PT'S BED ALARM AT APPROXIMATELY 2230. PT WAS ATTEMPTING TO GET UP OUT OF BED STATING "I WANT TO GET TO BED" PT WAS REMINDED THAT SHE WAS IN BED IN THE HOSPITAL, PT RESPONDED "SURE" AND CONTINUED TO TRY AND GET OUT OF BED. THIS RN WALKED WITH PT AROUND ROOM AND CONTINUED TO TRY AND RE-ORIENT PT. PT STARTED BECOMING INCREASINGLY AGITATED AND BECAME PHYSICALLY AGGRESSIVE ATTEMPTING TO PUSH AND HIT THIS RN. DR. COLEMAN CONTACTED AT APPROXIMATELY 2250. ORDERS RECEIVED TO ADMINISTER HALDOL 2 MG IM NOW AND MAY REPEAT ONE TIME IN AN HOUR IF NEEDED. HALDOL ADMINISTERED AT APPROXIMATELY 2300 AND SITTER PLACED WITH PT. PT REASSESSED AN HOUR LATER AND WAS STILL RESTLESS AND AGITATED - 2ND DOSE OF IM HALDOL ADMINISTERED. PT IS IN BED WATCHING TV AT THIS TIME. PT APPEARS TO HAVE CALMED. SITTER REMAINS IN ROOM WITH PT AT THIS TIME.
[2020-08-02 04:20] LABS: HEMOGLOBIN 12.3 g/dL (11.5-16.0); MEAN PLATELET VOLUME 9.9 fL (9.0-12.2); WHITE BLOOD COUNT 14.7 10^3/uL (4.3-11.0)
[2020-08-02 04:32] LABS: CALCIUM 8.3 MG/DL (8.5-10.1)
[2020-08-02 04:37] LABS: CREATININE SERUM 1.16 MG/DL (0.60-1.30)
[2020-08-02] MEDS: ASPIRIN 81 MG CHEW (CHILDREN'S ASA) PO SCH (07:53)
[2020-08-02] MEDS: meTOproloL SUCCINATE 50 MG (TOPROL XL) TAB PO SCH (07:54)
[2020-08-02] MEDS: CLOPIDOGREL 75 MG (PLAVIX) TABLET PO SCH (07:54)
--- NOTE | 2020-08-02 08:53 | Physical Therapy Evaluation ---
PT Evaluation-General Medical Diagnosis Admission Date Jul 31, 2020 at 19:51 Medical Diagnosis: weakness, chest pain Onset Date: Jul 31, 2020 Therapy Diagnosis Therapy Diagnosis: impaired mobility, strength Height/Weight Height (Feet): 5 Height (Inches): 5.00 Weight (Pounds): 155 Weight (Ounces): 6.0 Precautions Precautions/Isolations: Fall Prevention, Standard Precautions Referral Physician: Giovana Hernandez DO Reason for Referral: Evaluation/Treatment Medical History Pertinent Medical History: Atrial Fib Additional Medical History Past Medical History Surgeries: Abdominal, Appendectomy, Coronary Stent, Hysterectomy Cardiac: Atrial Fibrillation, Coronary Artery Disease, Hypertension Reproductive: No Genitourinary: Bladder Infection, UTI-Chronic Gastrointestinal: Gastroesophageal Reflux Musculoskeletal: Osteoporosis HEENT: Cataract Psychosocial: Anxiety Reviewed History: Yes Social History Home: Single Level Current Living Status: Entry Into Home: Stairs Without Railing PT Steps Into Home: 3 Prior Prior Level of Function SCALE: Activities may be completed with or without assistive devices. 1-[place]ug-fdkgfez completes the activity by him/herself with no assistance from a helper. 5-Set-up or Clean-up Assistance-helper sets up or cleans up; patient completes activity. [place] assists only prior to or following the activity. 4-Supervision or Touching Assistance-helper provides verbal cues and/or touching/steadying and/or contact guard assistance as patient completes activity. Assistance may be provided throughout the activity or intermittently. 3-Partial/Moderate Assistance-helper does LESS THAN HALF the effort. [place] lifts, holds or supports trunk or limbs, but provides less than half the effort. 2-Substantial/Maximal Assistance-helper does MORE THAN HALF the effort. [place] lifts or holds trunk or limbs and provides more than half the effort. 3-Hkoybeoca-bwxggr does ALL the effort. Patient does none of the effort to complete the activity. Or, the assistance of 2 or more helpers is required for the patient to complete the activity. If activity was not attempted, code reason: 7-Patient Refused. 9-Not Applicable-not attempted and the patient did not perform the activity before the current illness, exacerbation or injury. 10-Not Attempted due to Environmental Limitations-(lack of equipment, weather restraints, etc.). 88-Not Attempted due to Medical Conditions or Safety Concerns. Bed Mobility: 6 Transfers (B,C,W/C): 6 Gait: 6 Stairs: 6 Indoor Mobility (Ambulation): Independent Stairs: Independent PT Evaluation-Current Subjective Patient in bed pre tx, agrees to PT, has no complaints of pain, has sitter in room. Pt/Family Goals "to get stronger" Objective Patient Orientation: Person, Place, Situation ROM/Strength ROM Lower Extremities WNL Strength Lower Extremities LLE (hip flexion 4/5, knee flexion 4/5, knee extension 5/5, dorsiflexion 5/5), RLE (hip flexion 4/5, knee flexion 4/5, knee extension 5/5, dorsiflexion 5/5) Sensory Hearing: Functional Sensation Right Lower Extremit: Intact Sensation Left Lower Extremity: Intact Transfers Roll Left to Right (QC): 6 Sit to Lying (QC): 6 Lying to Sitting/Side of Bed(Q: 6 Sit to Stand (QC): 6 Gait Does the Patient Walk?: Yes Mode of Locomotion: Walk Anticipated Mode of Locomotion: Walk Walk 10 feet (QC): 4 Distance: 20' Gait Assistive Device: None Comments/Gait Description Patient ambulated to the door and back, some unsteadiness but no LOB, after getting back to her bed the worker came to give a heart ultrasound. Balance Sitting Static: Normal Sitting Dynamic: Normal Standing Static: Normal Standing Dynamic: Fair Assessment/Needs Patient has impaired mobility, strength, slight balance impairment. She ambulated without an assistive device but had some unsteadiness but no LOB. Rehab Potential: Fair PT Admin Secretary Goals Admin Secretary Goals PT Assisted Goals Time Frame: Aug 09, 2020 Roll Left & Right (QC): 6 Sit to Lying (QC): 6 Lying-Sitting on Side/Bed(QC): 6 Sit to Stand (QC): 6 Chair/Aie-id-Zvkrv Xfer(QC): 6 Walk 10 feet (QC): 6 Walk 50ft with 2 Turns (QC): 6 Walk 150 ft (QC): 6 PT Plan Problem List Problem List: Activity Tolerance, Functional Strength, Safety, Balance, Gait, Transfer Treatment/Plan Treatment Plan: Continue Plan of Care Treatment Plan: Bed Mobility, Education, Functional Activity Chip, Functional Strength, Gait, Safety, Therapeutic Exercise, Transfers Treatment Duration: Aug 09, 2020 Frequency: 6 times per week Estimated Hrs Per Day: .25 hour per day Patient and/or Family Agrees t: Yes Safety Risks/Education Patient Education: Gait Training, Transfer Techniques, Correct Positioning, Safety Issues Teaching Recipient: Patient Teaching Methods: Demonstration, Discussion Response to Teaching: Reinforcement Needed Discharge Recommendations Plan Patient will perform bed mobility and transfer training, balance and endurance training, functional strengthening, stair training, gait training, and education, to improve functional mobility and independence at home. Therapy Discharge Recommendati: Scheduled Assistance, Home & Family Time/GCodes Time In: 823 Time Out: 831 Total Billed Treatment Time: 8 Total Billed Treatment 1 visit EMILY Hernández' LIBIA EMMANUEL PT Aug 02, 2020 08:53
[2020-08-02] MEDS ORDERED: METO50TA7 PO (09:23)
[2020-08-02] MEDS ORDERED: FURO-125 PO (09:23)
[2020-08-02] MEDS ORDERED: ASPI-999 PO (09:23)
[2020-08-02] MEDS ORDERED: POTA10CA43 PO (09:23)
--- NOTE | 2020-08-02 09:50 | D/C HH Face to Face Order ---
D/C Face to Face Orders Reconcile Patient Problems Problems Reviewed?: Yes Instructions for Patient Via [facility] Knock Knock, Patient Instructions/FollowUp: Dr Hernandez and Dr Medina Physician to follow Patient: Mary Discharge Diet for Home: Cardiac Diet Patient Problems: CAD Weakness Patient Data-Allergies,Ht & Wt Patient Allergies: Coded Allergies: Penicillins (Unverified Allergy, Mild, 04/19/09) Height (Feet): 5 Height (Inches): 5.00 Weight (Pounds): 155 Weight (Ounces): 6.0 Home Health Need/Face to Face Date of Face to Face: Aug 02, 2020 Clinical Findings: Generalized weakness and fatigue, Muscle weakness, Unsteady gait I have seen Pt [id number]: Yes Discharged To: Home Diagnosis/Conditions: CAD Weakness Patient is Homebound due to: Pamela fall risk due to instabilty, Muscle weakness Homebound Status Due to the above stated illness, injury or surgical procedure (medical condition or diagnosis) and associated clinical findings, the patient is homebound because of his/her inability to leave home except with aid of a supportive device and/or person AND leaving the home requires a considerable and taxing effort or is medically contraindicated. Pt req the following assistanc: Walker Home Health Nursing Orders Home Health Services Order: Nursing Services, Occupational Medicine Officer-Evaluate & Treat, Physical Therapy-Evaluate & Treat Home Health Infusion Therapy Line Start Date: Jul 31, 2020 Certify Stmt I certify that this patient is under my care and that I, a nurse practitioner or a physician; a assistant dean working with me, had a face to face encounter that - meets the physician face to face encounter requirements with this patient as dated. GORDO HERNANDEZ DO Aug 02, 2020 09:50
--- NOTE | 2020-08-02 09:51 | Discharge Summary ---
Discharge Summary Hospital Course Problems/Dx: (1) Non-STEMI (non-ST elevated myocardial infarction) Status: Acute (2) CAD (coronary artery disease) Status: Chronic Qualifiers: Qualified Codes: I25.10 - Atherosclerotic heart disease of eek coronary artery without angina pectoris (3) Paroxysmal atrial fibrillation Status: Chronic Hospital Course Date of Admission: Jul 31, 2020 at 19:51 Admission Diagnosis : Family Physician/Provider: Giovana Hernandez DO Date of Discharge: 08/02/20 Discharge Diagnosis: [ ] Hospital Course: [ ] Labs and Pending Lab Test: Laboratory Tests 08/01/20 12:35: Activated Partial Thromboplast Time > 200*H 08/02/20 04:07: White Blood Count 14.7H, Red Blood Count 4.14, Hemoglobin 12.3, Hematocrit 40, Mean Corpuscular Volume 96, Mean Corpuscular Hemoglobin 30, Mean Corpuscular Hemoglobin Concent 31L, Red Cell Distribution Width 13.1, Platelet Count 286, Mean Platelet Volume 9.9, Sodium Level 140, Potassium Level 4.0, Chloride Level 108H, Carbon Dioxide Level 19L, Anion Gap 13, Blood Urea Nitrogen 24H, Creatinine 1.16, Estimat Glomerular Filtration Rate 45, BUN/Creatinine Ratio 21, Glucose Level 146H, Calcium Level 8.3L 08/02/20 09:43: Urine Color [Pending], Urine Clarity [Pending], Urine pH [Pending], Urine S pecific [place] [Pending], Urine Protein [Pending], Urine Glucose (UA) [Pending], Urine Ketones [Pending], Urine Nitrite [Pending], Urine Bilirubin [Pending], Urine Urobilinogen [Pending], Urine Leukocyte Esterase [Pending], Urine RBC (Auto) [Pending], Urine RBC [Pending], Urine WBC [Pending], Urine Crystals [Pending], Urine Bacteria [Pending], Urine Casts [Pending], Urine Mucus [Pending], Urine Culture Indicated [Pending] Home Meds Active Potassium Chloride 10 Meq Capsule.er 10 Meq PO Q48H Lasix (Furosemide) 20 Mg Tablet 20 Mg PO Q48H Aspirin 81 Mg Tab.chew 81 Mg PO DAILY@0900 Metoprolol Succinate 50 Mg Tab.er.24h 50 Mg PO DAILY Reported Liver Complex Tablet (Milk Thistle/Nac/Dandel/Turmer) 1 Each Tablet 1 Each PO DAILY Tylenol (Acetaminophen) 325 Mg Capsule 325-650 Mg PO Q8H PRN Vitamin C (Ascorbate Calcium) 500 Mg Tablet 500 Mg PO 1200 K-Tab ER (Potassium Chloride) 10 Meq Tablet.er 10 Meq PO DAILY Multaq (Dronedarone HCl) 400 Mg Tablet 400 Mg PO 1700 Ambien (Zolpidem Tartrate) 5 Mg Tablet 5 Mg PO HS PRN Xarelto (Rivaroxaban) 15 Mg Tablet 15 Mg PO 1700 Cephalexin 250 Mg Capsule 250 Mg PO HS Clopidogrel (Clopidogrel Bisulfate) 75 Mg Tablet 75 Mg PO 1200 Rosuvastatin Calcium 5 Mg Tablet 5 Mg PO HS Metoprolol Succinate 25 Mg Tab.er.24h 25 Mg PO HS Cranberry (Cranberry Extract) 500 Mg Tablet 500 Mg PO 1200 Furosemide 20 Mg Tablet 20 Mg PO DAILY Discharge Physical Examination Vital Signs Vital Signs Date Time Temp Pulse Resp B/P (MAP) Pulse Ox O2 Delivery O2 Flow Rate FiO2 08/02/20 09:18 Room Air 08/02/20 08:31 37.66040 105 18 112/70 92 2.00 Allergies: Coded Allergies: Penicillins (Unverified Allergy, Mild, 04/19/09) Discharge Summary Date of Admission Jul 31, 2020 at 19:51 Date of Discharge Discharge Date: Aug 02, 2020 Admission Diagnosis Assessment: Unstable angina CAD previous 6 stents HTN HLP PAF Plan: Home meds Cath today Discharge Diagnosis (1) Non-STEMI (non-ST elevated myocardial infarction) Status: Acute (2) CAD (coronary artery disease) Status: Chronic Qualifiers: Qualified Codes: I25.10 - Atherosclerotic heart disease of eek coronary a rtery without angina pectoris (3) Paroxysmal atrial fibrillation Status: Chronic Clinical Quality Measures AMI/AHF: ASA po Prior to arrival: Yes DVT/VTE Risk/Contraindication: Risk Factor Score Per Nursin RFS Level Per Nursing on Admit: 4+=Very High GIOVANA HERNANDEZ DO Aug 02, 2020 09:51
[2020-08-02 09:56] LABS: BILIRUBIN,URINE 1+ (NEGATIVE); CLARITY,URINE CLEAR; COLOR,URINE YELLOW; GLUCOSE, URINE (UA) NEGATIVE (NEGATIVE); KETONES,URINE NEGATIVE (NEGATIVE); LEUKOCYTE ESTERASE ,URINE NEGATIVE (NEGATIVE); NITRITE,URINE NEGATIVE (NEGATIVE); PH,URINE 5.5 (5-9); PROTEIN,URINE 1+ (NEGATIVE)
[2020-08-02 10:12] LABS: BACTERIA,URINE TRACE /HPF; RBC,URINE 0-2 /HPF; SQUAMOUS EPITHELIAL CELL,UR 25-50 /HPF; WBC,URINE RARE /HPF
--- NOTE | 2020-08-02 10:21 | NUR ---
Call placed to patient's daughter regarding discharge. As soon as phone call was complete, HIGH [employer]CHO[employer]EN[employer] TEACHER who was sitting with patient notified this nurse that patient's Oxygen Saturations dropped to 68% on Room air. O2 applied at 2 L and O2 came up to 92%. Dr. Hernandez notified, Discharge placed on hold at this time. Patient's daughter notified. Will continue to monitor.
--- NOTE | 2020-08-02 10:27 | Occ Therapy Progress Note ---
Therapy Progress Note Pt is asleep upon OT entry. nurse's assistant/ sitter present, stating pt has showered with SUP/ IND and just got back to sleep. Pt to d/c this date with daughter and son in law. Per PT notes, pt ambulating without AD. No skilled OT services indicated at this time. 1, visit. D/c. STEPHANIE MCGEE OTR Aug 02, 2020 10:27
[2020-08-02] MEDS ORDERED: FUROSEMIDE 40 MG/4 ML INJ (LASIX) IVP ONE (10:45)
--- NOTE | 2020-08-02 10:46 | Progress Note - Hospitalist ---
Subjective HPI/CC On Admission Date Seen by Provider: Aug 02, 2020 Time Seen by Provider: 10:00 CC: Chest pain with unstable angina HPI: This is an 84yoWF clinic pt of mine with a PMH of AF with severe heart disease with six stents in the past who presents to the [facility] ER with chest pain. Pt was found to have findings consistent with acute coronary syndrome and was therefore admitted. Cardiology has been consulted and will undergo a cardiac catheterization. At this current time she denies any significant other issues ot her than mild SOB that she feels is from her heart. We will await cardiology evaluation of the cardiac catheterization procedure. Subjective/Events-last exam Pt was set for discharge but hypoxia occurred Lasix was given 20 mg IVx1 by cardiology service and I have initiated a septic work up In-and-out cath will be obtained considering her white count is simply elevated for unknown reason, could just be cardiac catheterization and stress response Ambien really made her confused so will discontinue that Had to have a one-on-one because she was so confused and Haldol After rounds CXR obtained whcih appeared to be pulmonary edema but eso repeat was done and LA was 3.1 so I elevated lactic acid was concerning so I pancultured and Dr Wolfe consulted and placed on Cefepime and Vanc and IVF started for sepsis/ Review of Systems General: Fatigue, Malaise Pulmonary: Dyspnea Focused Exam Lactate Level 08/02/20 11:50: Lactic Acid Level 2.12*H 08/02/20 14:39: Lactic Acid Level 3.20*H 08/02/20 18:10: Lactic Acid Level 2.86*H Lactic Acid Level Laboratory Tests Test 08/02/20 18:10 Lactic Acid Level 2.86 MMOL/L (0.50-2.00) *H Objective Exam Vital Signs Vital Signs Date Time Temp Pulse Resp B/P (MAP) Pulse Ox O2 Delivery O2 Flow Rate FiO2 08/02/20 20:00 Vapotherm 40.00 60 08/02/20 19:44 36.1 116 22 124/32 (62) 93 Capillary Refill : Less Than 3 Seconds General Appearance: No Apparent Distress, WD/WN, Anxious, Chronically ill Respiratory: Chest Non Tender, Lungs Clear, Normal Breath Sounds, No Accessory Muscle Use, No Respiratory Distress Cardiovascular: Regular Rate, Rhythm, No Edema, No Gallop, No JVD, No Murmur, Normal Peripheral Pulses Neurologic/Psychiatric: Alert, Oriented x3, No Motor/Sensory Deficits, Normal Mood/Affect Results/Procedures Lab Laboratory Tests 08/02/20 04:07 Patient resulted labs reviewed. Assessment/Plan Assessment and Plan Assess & Plan/Chief Complaint Assessment: NSTEMI Hypoxia Elevated wbc PNA ? Sepsis Plan: IVF Abx O2 Diagnosis/Problems Diagnosis/Problems (1) Non-STEMI (non-ST elevated myocardial infarction) Status: Acute (2) CAD (coronary artery disease) Status: Chronic Qualifiers: Coronary Disease-Associated Artery/Lesion type: [place] artery [place] vs. transplanted heart: council heart Associated angina: without angina Qualified Codes: I25.10 - Atherosclerotic heart disease of [place] coronary artery without angina pectoris (3) Paroxysmal atrial fibrillation Status: Chronic Clinical Quality Measures AMI/AHF: ASA po Prior to arrival: Yes DVT/VTE Risk/Contraindication: Risk Factor Score Per Nursin RFS Level Per Nursing on Admit: 4+=Very High GORDO OVERTON DO Aug 02, 2020 10:46
--- NOTE | 2020-08-02 11:11 | Diagnostic Imaging Report ---
INDICATION: Shortness of breath. TECHNIQUE: Two view chest at 10:54 AM. CORRELATION STUDY: 07/31/2020. FINDINGS: Loop recorder device over the left chest. Findings compatible with prior cardiac valve repair with anchor screws over the lower heart. Long coronary artery stent. Heart size appears generally stable. Vasculature is slightly prominent with some fullness of the hilar structures. Minimal perihilar opacities may reflect mild edema. No peripheral consolidating infiltrate. Trace effusions. Accentuated thoracic kyphosis with advanced degenerative change about the thoracic spine. IMPRESSION: The heart size is stable with the vasculature appearing slightly more prominent from prior. There may be a minimal component of edema within the lung manning. Dictated by: Dictated on workstation # [id number]
[2020-08-02] MEDS ORDERED: NON-FORMULARY MEDICATION 1 EA EA (Cranberry Extract (Cranberry) 500 MG) PO SCH (12:00)
[2020-08-02] MEDS: NS IV 1000 ML 1,000 ML IV SCH ×6 (14:47→19:53)
--- NOTE | 2020-08-02 15:30 | NUR ---
Critical Lactic Acid results received. Dr. Hernandez notified, orders received.
[2020-08-02] MEDS ORDERED: VANCOMYCIN INJECTION 0.1 MG in NS (IVPB) 250 ML IV SCH (15:45)
--- NOTE | 2020-08-02 15:55 | NUR ---
CR 1.16; CR CL ~32; WT 70.1 KG; VANCO 1500 MG IV BOLUS THEN 1000 MG IV Q24H; TROUGH AFTER 2ND DOSE
[2020-08-02] MEDS ORDERED: VANCOMYCIN 1500 MG/NS 500 ML IVPB IV NR ×2 (16:00)
--- NOTE | 2020-08-02 16:29 | NUR ---
Patient's O2 is between 69% and 75% on 2 L. Oxygen increased to 6L, patient not getting saturations above 75%. RT called to room.
--- NOTE | 2020-08-02 16:41 | Pulmonary Consultation ---
History of Present Illness History of Present Illness Date Seen by Provider: Aug 02, 2020 Time Seen by Provider: 16:41 Date of Admission Allergies and Home Medications Allergies Coded Allergies: Penicillins (Unverified Allergy, Mild, 04/19/09) Home Medications Acetaminophen 325 Mg Capsule, 325-650 MG PO Q8H PRN for PAIN-MILD (1-4), (Reported) Ascorbate Calcium 500 Mg Tablet, 500 MG PO 1200, (Reported) Aspirin 81 Mg Tab.chew, 81 MG PO DAILY@0900 Prescribed by: PARISH BONNER on 08/02/20922 Cephalexin 250 Mg Capsule, 250 MG PO HS, (Reported) Clopidogrel Bisulfate 75 Mg Tablet, 75 MG PO 1200, (Reported) Cranberry Extract 500 Mg Tablet, 500 MG PO 1200, (Reported) Furosemide 20 Mg Tablet, 20 MG PO Q48H Prescribed by: PARISH BONNER on 08/02/20922 Metoprolol Succinate 50 Mg Tab.er.24h, 50 MG PO DAILY Prescribed by: PARISH BONNER on 08/02/20922 Milk Thistle/Nac/Dandel/Turmer 1 Each Tablet, 1 EACH PO DAILY, (Reported) Potassium Chloride 10 Meq Capsule.er, 10 MEQ PO Q48H Prescribed by: PARISH BONNER on 08/02/20922 Rivaroxaban 15 Mg Tablet, 15 MG PO 1700, (Reported) Rosuvastatin Calcium 5 Mg Tablet, 5 MG PO HS, (Reported) Past Ukokpla-Ktwrrl-Eqrygg Hx Past Med/Social Hx: Reviewed Nursing Past Med/Soc Hx, Reviewed and Corrections made Patient Social History Alcohol Use: Rarely Uses Recreational Drug Use: No Smoking Status: Never a Smoker 2nd Hand Smoke Exposure: No Recent Foreign Travel: No Contact w/Someone Who Travel: No Recent Infectious Disease Expo: No Recent Hopitalizations: No Immunizations Up To Date Date of Pneumonia Vaccine: Jun 01, 2018 Date of Influenza Vaccine: May 31, 2020 Seasonal Allergies Seasonal Allergies: No Past Medical History Surgeries: Yes (cardiac stents) Abdominal, Appendectomy, Coronary Stent, Hysterectomy Respiratory: No Cardiac: Yes Atrial Fibrillation, Coronary Artery Disease, Hypertension Neurological: No Reproductive Disorders: No Genitourinary: Yes Bladder Infection, UTI-Chronic Gastrointestinal: No Gastroesophageal Reflux Musculoskeletal: No Osteoporosis Endocrine: No HEENT: Yes (b/l eyes) Cataract Cancer: No Psychosocial: Yes Anxiety Integumentary: No Blood Disorders: No Adverse Reaction/Blood Tranf: No Family Medical History Heart Disease Review of Systems Time Seen by Provider: 16:41 Sepsis Event Evaluation Height, Weight, BMI Height: 5'5.00" Weight: 155lbs. 6.0oz. 70.883405qp; 25.97 BMI Method:Actual Exam Exam Vital Signs Date Time Temp Pulse Resp B/P (MAP) Pulse Ox O2 Delivery O2 Flow Rate FiO2 08/02/20 16:23 Nasal Cannula 2.00 08/02/20 16:22 36.8 119 20 123/77 (92) 77 Nasal Cannula 6.00 08/02/20 16:21 Nasal Cannula 2.00 08/02/20 12:56 110 08/02/20 12:00 Room Air 08/02/20 12:00 37.0 131 16 102/63 (76) 95 Nasal Cannula 2.00 08/02/20 09:18 Room Air 08/02/20 08:31 37.63330 105 18 112/70 92 2.00 08/02/20 08:00 Room Air 08/02/20 08:00 37.2 105 18 112/70 (84) 92 Nasal Cannula 2.00 08/02/20 06:48 111 08/02/20 04:08 Room Air 08/02/20 03:09 93 Nasal Cannula 2.00 08/02/20 03:06 36.6 107 20 114/79 (91) 88 Room Air 08/02/20 00:00 Room Air 08/01/20 23:09 36.8 94 18 123/75 (91) 93 Room Air 08/01/20 20:18 37.0 87 18 113/65 (81) 93 Room Air 08/01/20 20:00 93 Room Air 08/01/20 20:00 93 Room Air 08/01/20 19:00 98 I & O 08/02/20 07:00 Intake Total 1925 ml Balance 1925 ml Height & Weight Height: 5'5.00" Weight: 155lbs. 6.0oz. 70.237677cg; 25.97 BMI Method:Actual General Appearance: No Apparent Distress, Chronically ill HEENT: PERRL/EOMI, Normal ENT Inspection, Pharynx Normal, Moist Mucous Membranes Neck: Full Range of Motion, Normal Inspection, Non Tender Respiratory: Chest Non Tender, Lungs Clear, Normal Breath Sounds, No Accessory Muscle Use, No Respiratory Distress Cardiovascular: Regular Rate, Rhythm, No Edema, No Gallop, No JVD, No Murmur, Normal Peripheral Pulses Capillary Refill: Less Than 3 Seconds Extremity: Normal Capillary Refill, Normal Inspection, Normal Range of Motion, Non Tender, No Calf Tenderness, No Pedal Edema Neurologic/Psychiatric: Alert, Oriented x3, No Motor/Sensory Deficits, Normal Mood/Affect Skin: Normal Color, Warm/Dry Lymphatic: No Adenopathy Results Lab Laboratory Tests 07/31/20 18:27 08/01/20 05:15 08/02/20 04:07 Assessment/Plan Assessment/Plan Acute respiratory failure -Stat ABG -Transfer to ICU -Suarez cultures -COVID pending -Influenza pending Acute pneumonia -Continue Cefepime and Vanco -Check suarez cultures and MRSA swab CHF with EF of 35-40% -Monitor Valvular heart disease hx of Paroxysmal Afib CKD CAD Upon further discussion with patient she clearly states she wants to be a DNR. NO intubation, NO CODE Blue. Pt does understand what DNR is. KATE BELTRÁN DO Aug 02, 2020 16:41
--- NOTE | 2020-08-02 16:50 | NUR ---
Call Placed to patients daughter to update on patient's change in condition and move to ICU-11.
[2020-08-02] MEDS ORDERED: dilTIAZem DRIP PRE-MIX 125 ML IV ONE (17:17)
--- NOTE | 2020-08-02 17:17 | Progress Note - Cardiology ---
Cardiology SOAP Progress Note Subjective: Gen weakness and malaise present No n/v/d No cp or palp or syncope Shortness of breath improved Objective: I&O/Vital Signs 08/02/20 08/02/20 08/02/20 08/02/20 06:48 08:00 08:00 08:31 Temp 37.2 37.09755 Pulse 111 105 105 Resp 18 18 B/P (MAP) 112/70 (84) 112/70 Pulse Ox 92 92 O2 Delivery Nasal Cannula Room Air O2 Flow Rate 2.00 2.00 08/02/20 08/02/20 08/02/20 08/02/20 09:18 12:00 12:00 12:56 Temp 37.0 Pulse 131 110 Resp 16 B/P (MAP) 102/63 (76) Pulse Ox 95 O2 Delivery Room Air Nasal Cannula Room Air O2 Flow Rate 2.00 08/02/20 08/02/20 08/02/20 08/02/20 16:21 16:22 16:23 16:46 Temp 36.8 Pulse 119 Resp 20 B/P (MAP) 123/77 (92) Pulse Ox 77 94 O2 Delivery Nasal Cannula Nasal Cannula Nasal Cannula Vapotherm O2 Flow Rate 2.00 6.00 2.00 35.00 08/02/20 00:00 Intake Total 1600 ml Balance 1600 ml Weight (Pounds): 155 Weight (Ounces): 6.0 Weight (Calculated Kilograms): 70.926038 Device Insertion Site: without hematoma Bruising: mild bruising Constitutional: AAO x 3, well-developed, well-nourished Respiratory: No accessory muscle use, No respiratory distress; chest expansion is symmetric, chest is bilaterally symmetric, lungs clear to auscultation Cardiovascular: irregularly irregular; No JVD; S1 and S2, systolic murmur (soft) Gastrointestional: No tender; soft, round, audible bowel sounds Extremities: no lower extremity edema bilateral Neurologic/Psychiatric: other (moves all limbs equally)) Skin: No rash on exposed areas, No ulcerations on exposed areas Results/Procedures: Labs Laboratory Tests 08/02/20 04:07: White Blood Count 14.7H, Red Blood Count 4.14, Hemoglobin 12.3, Hematocrit 40, Mean Corpuscular Volume 96, Mean Corpuscular Hemoglobin 30, Mean Corpuscular Hemoglobin Concent 31L, Red Cell Distribution Width 13.1, Platelet Count 286, Mean Platelet Volume 9.9, Sodium Level 140, Potassium Level 4.0, Chloride Level 108H, Carbon Dioxide Level 19L, Anion Gap 13, Blood Urea Nitrogen 24H, Creatinine 1.16, Estimat Glomerular Filtration Rate 45, BUN/Creatinine Ratio 21, Glucose Level 146H, Calcium Level 8.3L 08/02/20 09:43: Urine Color YELLOW, Urine Clarity CLEAR, Urine pH 5.5, Urine Specific [place] >=1.030, Urine Protein 1+H, Urine Glucose (UA) NEGATIVE, Urine Ketones NEGATIVE, Urine Nitrite NEGATIVE, Urine Bilirubin 1+H, Urine Urobilinogen 1.0, Urine Leukocyte Esterase NEGATIVE, Urine RBC (Auto) 2+H, Urine RBC 0-2, Urine WBC RARE, Urine Squamous Epithelial Cells 25-50H, Urine Crystals NONE, Urine Bacteria TRACE, Urine Casts NONE, Urine Mucus LARGEH, Urine Culture Indicated NO 08/02/20 11:50: Lactic Acid Level 2.12*H, Procalcitonin 0.10H 08/02/20 14:39: Lactic Acid Level 3.20*H 08/02/20 16:10: Microbiology 08/02/20 Influenza Types A,B Antigen (JENN) - Final, Complete A/P: Assessment: NSTEMI and post-infarction angina Coronary artery disease with history of PTCA and stents to LAD in 2009 with cardiac catheterization 09/20/2013 revealing patent stents in the proximal and mid LAD; cath in 09/2018, after NSTEMI, showed distal edge stenosis in LAD stent that was treated with Stephania 2.25 x 8 mm. Cath on 08/01/20 showed 99% distal edge restenosis in a long LAD stented segment. This was treated with balloon angioplasty with no significant residual stenosis. Mild CAD elsewhere. LVEDP 28 mmHg Valvular heart disease followed at [facility]: h/o severe mitral regurgitation treated with percutaneous transcatheter repair of the mitral valve with Dr. Hines and David at in July 2019; repeat echo done in December 2019 showing moderate stenosis, valve area 2.5 cm with severe regurgitation. Ejection fraction 35-40 percent. PA pressure 45-50 mmHg Frequent PVCs with ventricular bigeminy, intolerant to Mexitil, the patient had severe nausea was unable to tolerated and it was discontinued H/O Atrial fibrillation with rapid ventricular rate, status post EROS with successful cardioversion August 2017. Was intolerant to amiodarone secondary to elevated LFTs and increased fatigue. Intolerance to Mexiletine with severe nausea and vomiting, intolerant to sotalol due to QT prolongation. ILR in place. H/o Multaq daily secondary to side effect of nausea with twice a day dosing. Currently in a-fib with controlled rate, per EKG of Jul 31, 2020. [id number] score of 5, patient is maintained on Xarelto. Hypertension Hyperlipidemia History of elevated LFTs while on amiodarone and Lipitor. Both medications were discontinued. Has tolerated Crestor, according to history Mild bilateral carotid artery stenosis. Last ultrasound was done in July [address] Carol Uriarte. CKD 3-4 Plan: Complex management Ok for d/c from cardiac standpoint, but has malaise and leucocytosis. Discussed with Dr Hernandez. She will evaluate Continue current cardiac regimen. In 3-4 more days, d/c one of the DAPT and continue the other and also continue rivaroxaban Clinical Quality Measures AMI/AHF: ASA po Prior to arrival: Yes DEANNA CHACKO MD FACP FACC CCDS Aug 02, 2020 17:17
[2020-08-02] MEDS ORDERED: CEFEPIME 1 GM/10 ML (MAXIPIME) VIAL ONE (17:21)
[2020-08-02] MEDS ORDERED: WATER (STERILE) FOR INJECTION 10 ML ONE (17:21)
[2020-08-02] MEDS: RIVAROXABAN 15 MG TABLET (XARELTO) PO SCH (17:27)
[2020-08-02] MEDS: CEFEPIME INJECTION 1,000 MG in WATER (STERILE) FOR INJECTION 10 ML IV SCH (17:27)
[2020-08-02] MEDS: dilTIAZem DRIP PRE-MIX 125 ML IV SCH (17:29)
--- NOTE | 2020-08-02 17:51 | Diagnostic Imaging Report ---
INDICATION: Respiratory failure. Frontal chest obtained at 5:45 p.m. is compared to 10:54 a.m. the same day. There is cardiomegaly. There is central vascular congestion to a mild degree. There is increased vascular congestion and perihilar and basilar infiltrate in the right side compared to the prior study. There is no pneumothorax or pleural fluid IMPRESSION: Cardiomegaly with central vascular congestion. There is increased infiltrate in the right perihilar region and base compared to the previous study. Dictated by: Dictated on workstation # [id number]
[2020-08-02] MEDS: CEPHALEXIN 250 MG (KEFLEX) CAP PO SCH (19:53)
[2020-08-02 20:29] LABS: ABG BASE EXCESS -4.6 MMOL/L (-2.5-2.5); ABG OXYGEN SATURATION 96 % (94-100); ABG PCO2 31 MMHG (35-45); ABG PH 7.41 (7.37-7.43); ABG PO2 72 MMHG (79-93); ABG TCO2 20.3 MMOL/L (21.0-31.0)
[2020-08-02 20:42] LABS: ALLENS TEST POS; INSPIRED O2 40
[2020-08-02 20:43] LABS: PATIENT TEMP 36.1; VENTILATOR NO
[2020-08-03] VITALS (22 sets, daily range): BP systolic 95–132; BP diastolic 57–100
[2020-08-03] MEDS: dilTIAZem DRIP PRE-MIX 125 ML IV SCH (05:15)
[2020-08-03] MEDS: CEFEPIME INJECTION 1,000 MG in WATER (STERILE) FOR INJECTION 10 ML IV SCH ×3 (05:15→21:12)
[2020-08-03] MEDS ORDERED: CEFEPIME 1 GM/10 ML (MAXIPIME) VIAL ONE (05:36)
[2020-08-03] MEDS ORDERED: WATER (STERILE) FOR INJECTION 10 ML ONE (05:36)
[2020-08-03 08:02] LABS: BASOPHILS % (AUTO) 0 % (0-10); EOSINOPHILS % (AUTO) 0 % (0-10); HEMATOCRIT 35 % (35-52); HEMOGLOBIN 10.7 g/dL (11.5-16.0); LYMPHOCYTES # (AUTO) 0.7 10^3/uL (1.0-4.0); LYMPHOCYTES % (AUTO) 6 % (12-44); MEAN CORPUSCULAR HEMOGLOBIN 30 pg (25-34); MEAN CORPUSCULAR HGB CONC 31 g/dL (32-36); MEAN CORPUSCULAR VOLUME 97 fL (80-99); MEAN PLATELET VOLUME 10.2 fL (9.0-12.2); MONOCYTES # (AUTO) 1.1 10^3/uL (0.0-1.0); MONOCYTES % (AUTO) 10 % (0-12); NEUTROPHILS % (AUTO) 83 % (42-75); PLATELET COUNT 216 10^3/uL (130-400); WHITE BLOOD COUNT 10.8 10^3/uL (4.3-11.0)
[2020-08-03 08:14] LABS: CHLORIDE 110 MMOL/L (98-107); POTASSIUM 3.9 MMOL/L (3.6-5.0); SODIUM 139 MMOL/L (135-145)
[2020-08-03 08:15] LABS: CALCIUM 7.7 MG/DL (8.5-10.1)
[2020-08-03 08:16] LABS: GLUCOSE 96 MG/DL (70-105)
[2020-08-03 08:17] LABS: CARBON DIOXIDE 19 MMOL/L (21-32)
[2020-08-03] MEDS: CLOPIDOGREL 75 MG (PLAVIX) TABLET PO SCH (08:17)
[2020-08-03] MEDS: ASPIRIN 81 MG CHEW (CHILDREN'S ASA) PO SCH (08:17)
[2020-08-03] MEDS: meTOproloL SUCCINATE 50 MG (TOPROL XL) TAB PO SCH (08:18)
[2020-08-03 08:19] LABS: PHOSPHORUS 2.5 MG/DL (2.3-4.7)
[2020-08-03 08:20] LABS: CREATININE SERUM 0.83 MG/DL (0.60-1.30); GFR ESTIMATED > 60
[2020-08-03] MEDS: NS IV 1000 ML 1,000 ML IV SCH ×2 (08:20→23:32)
[2020-08-03 08:21] LABS: BUN/CREATININE RATIO 27
[2020-08-03 08:22] LABS: MAGNESIUM 2.1 MG/DL (1.6-2.4)
[2020-08-03 08:39] LABS: BAND NEUTROPHILS 1 %; LYMPHOCYTES % (MANUAL) 10 %; MONOCYTES % (MANUAL) 5 %; NEUTROPHILS % (MANUAL) 84 %; RBC MORPH NORMAL
--- NOTE | 2020-08-03 08:49 | Progress Note - Cardiology ---
Cardiology SOAP Progress Note Subjective: Transferred to ICU 11 with sepsis COVID PUI Objective: I&O/Vital Signs 08/03/20 08/03/20 08/03/20 08/03/20 20:00 20:00 21:00 21:00 Temp 37.2 Pulse 115 108 Resp 22 18 B/P (MAP) 121/81 (94) 99/81 (87) Pulse Ox 92 92 O2 Delivery Vapotherm Vapotherm Vapotherm O2 Flow Rate 30.00 30.00 30.00 55.00 55.00 FiO2 55 08/03/20 08/03/20 08/03/20 08/04/20 21:48 22:00 23:00 00:00 Pulse 117 121 113 Resp 20 20 26 B/P (MAP) 107/99 (102) 122/83 (96) 109/88 (95) Pulse Ox 94 92 96 95 O2 Delivery Vapotherm Vapotherm Vapotherm Vapotherm O2 Flow Rate 30.00 30.00 30.00 30.00 55.00 55.00 55.00 FiO2 55 08/04/20 08/04/20 08/04/20 08/04/20 01:00 01:00 02:00 03:00 Pulse 112 123 137 121 Resp 24 12 13 B/P (MAP) 118/92 (101) 121/103 (109) 127/105 (112) Pulse Ox 95 95 94 O2 Delivery Vapotherm Vapotherm Vapotherm O2 Flow Rate 30.00 30.00 30.00 55.00 55.00 55.00 08/04/20 08/04/20 08/04/20 08/04/20 04:00 05:00 06:00 06:32 Pulse 129 110 121 Resp 25 27 14 B/P (MAP) 122/78 (93) 120/78 (92) 126/74 (91) Pulse Ox 97 94 97 O2 Delivery Vapotherm Vapotherm Vapotherm Vapotherm O2 Flow Rate 30.00 30.00 30.00 20.00 55.00 55.00 55.00 45.00 08/04/20 00:00 Intake Total 750 ml Output Total 1325 ml Balance -575 ml Weight (Pounds): 155 Weight (Ounces): 6.0 Weight (Calculated Kilograms): 70.943027 Results/Procedures: Labs Laboratory Tests 08/04/20 03:35: Sodium Level 140, Potassium Level 3.7, Chloride Level 113H, Carbon Dioxide Level 15L, Anion Gap 12, Blood Urea Nitrogen 24H, Creatinine 0.79, Estimat Glomerular Filtration Rate > 60, BUN/Creatinine Ratio 30, Glucose Level 98, Calcium Level 7.8L 08/04/20 04:08: White Blood Count 10.9, Red Blood Count 3.64L, Hemoglobin 10.7L, Hematocrit 36, Mean Corpuscular Volume 98, Mean Corpuscular Hemoglobin 29, Mean Corpuscular Hemoglobin Concent 30L, Red Cell Distribution Width 13.5, Platelet Count 234, Mean Platelet Volume 10.6 Microbiology 08/02/20 Blood Culture - Preliminary, Resulted No growth 08/02/20 MRSA Screen - Final, Complete MRSA not isolated Procedures NAME: OMRENA MARTINEZ [facility] REC#: [id number] PT STATUS: ADM IN : 1935 PHYSICIAN: CHHAYA WARD MD ADMIT DATE: 07/31/20/ICU Signed Date of Exam:08/02/20 CHEST 1 VIEW, AP/PA ONLY INDICATION: Respiratory failure. Frontal chest obtained at 5:45 p.m. is compared to 10:54 a.m. the same day. There is cardiomegaly. There is central vascular congestion to a mild degree. There is increased vascular congestion and perihilar and basilar infiltrate in the right side compared to the prior study. There is no pneumothorax or pleural fluid IMPRESSION: Cardiomegaly with central vascular congestion. There is increased infiltrate in the right perihilar region and base compared to the previous study. Dictated by: Dictated on workstation # [id number] Dict: 08/02/20 1749 Trans: 08/02/20 1833 [facility] [id number] Interpreted by: CYRUS ANDREWS MD A/P: Assessment: Pneumonia with sepsis - management per pulmonary services A-fib with RVR - currently controlled rate with IV Cardizem NSTEMI and post-infarction angina Coronary artery disease with history of PTCA and stents to LAD in 2009 with cardiac catheterization 09/20/2013 revealing patent stents in the proximal and mid LAD; cath in 09/2018, after NSTEMI, showed distal edge stenosis in LAD sten t that was treated with Stephania 2.25 x 8 mm. Cath on 08/01/20 showed 99% distal edge restenosis in a long LAD stented segment. This was treated with balloon angioplasty with no significant residual stenosis. Mild CAD elsewhere. LVEDP 28 mmHg Valvular heart disease followed at [facility]: h/o severe mitral regurgitation treated with percutaneous transcatheter repair of the mitral valve with Dr. Hines and David at [facility] in July 2019; repeat echo done in December 2019 showing moderate stenosis, valve area 2.5 cm with severe regurgitation. Ejection fraction 35-40 percent. PA pressure 45-50 mmHg Frequent PVCs with ventricular bigeminy, intolerant to Mexitil, the patient had severe nausea was unable to tolerated and it was discontinued H/O Atrial fibrillation with rapid ventricular rate, status post EROS with successful cardioversion August 2017. Was intolerant to amiodarone secondary to elevated LFTs and increased fatigue. Intolerance to Mexiletine with severe nausea and vomiting, intolerant to sotalol due to QT prolongation. ILR in place. H/o Multaq daily secondary to side effect of nausea with twice a day dosing. Currently in a-fib with controlled rate, per EKG of Jul 31, 2020. [id number] score of 5, patient is maintained on Xarelto. Hypertension Hyperlipidemia History of elevated LFTs while on amiodarone and Lipitor. Both medications were discontinued. Has tolerated Crestor, according to history Mild bilateral carotid artery stenosis. Last ultrasound was done in July [address] Carol Uriarte. CKD 3-4 Plan: Complex management COVID PUI Pneumonia with sepsis - management per pulmonary services A-fib with RVR - rate improved with IV Cardizem - continue for now Give diuretics as indicated Continue current cardiac regimen. In 3-4 more days, d/c one of the DAPT and continue the other and also continue rivaroxaban Monitor lab and replace electrolytes as indicated Clinical Quality Measures AMI/AHF: ASA po Prior to arrival: Yes PARISH BONNER Aug 03, 2020 08:49
--- NOTE | 2020-08-03 12:59 | Physical Therapy Progress Note ---
Therapy Progress Note Pt on vent and sedated, will continue to follow. VALENTE SAWYER PT Aug 03, 2020 12:58
[2020-08-03] MEDS ORDERED: FUROSEMIDE 40 MG/4 ML INJ (LASIX) IVP NR (14:15)
--- NOTE | 2020-08-03 14:16 | Progress Note ---
Subjective Subjective/Events-last exam Afebrile, continues to feel quite short of breath even with adequate SpO2 on vapotherm. Focused Exam Lactate Level 08/02/20 14:39: Lactic Acid Level 3.20*H 08/02/20 18:10: Lactic Acid Level 2.86*H 08/02/20 20:50: Lactic Acid Level 1.80 Objective Exam Last Set of Vital Signs Vital Signs Date Time Temp Pulse Resp B/P (MAP) Pulse Ox O2 Delivery O2 Flow Rate FiO2 08/03/20 10:27 99 Vapotherm 30.00 55 08/03/20 06:43 96 08/03/20 06:00 22 116/79 (91) 08/02/20 19:44 36.1 Capillary Refill : Less Than 3 Seconds I&O Intake and Output 08/03/20 00:00 Intake Total 1070 ml Output Total 340 ml Balance 730 ml Intake Oral 1070 ml Output Urine Total 340 ml # Voids 11 General: Alert, Mild Distress Lungs: Other (decreased air movement throughout) Heart: Regular Rate Extremities: No Edema Neuro: Normal Speech Psych/Mental Status: Mood NL Results/Procedures Lab Laboratory Tests 08/02/20 14:39: Lactic Acid Level 3.20*H 08/02/20 16:10: 08/02/20 17:00: B-Type Natriuretic Peptide 1422.1H, Coronavirus 2019 (ESTIVEN) Negative 08/02/20 17:54: Glucometer 84 08/02/20 18:10: Lactic Acid Level 2.86*H 08/02/20 20:00: Blood Gas Puncture Site [facility] RAD, Blood Gas Patient Temperature 36.1, Arterial Blood pH 7.41, Arterial Blood Partial Pressure CO2 31L, Arterial Blood Partial Pressure O2 72L, Arterial Blood HCO3 19L, Arterial Blood Total CO2 20.3L, Arterial Blood Oxygen Saturation 96, Arterial Blood Base Excess -4.6L, Red Test POS, Blood Gas Ventilator Setting NO, Blood Gas Inspired Oxygen 40 08/02/20 20:50: Lactic Acid Level 1.80 08/03/20 07:45: White Blood Count 10.8, Red Blood Count 3.61L, Hemoglobin 10.7L, Hematocrit 35, Mean Corpuscular Volume 97, Mean Corpuscular Hemoglobin 30, Mean Corpuscular Hemoglobin Concent 31L, Red Cell Distribution Width 13.6, Platelet Count 216, Mean Platelet Volume 10.2, Immature Granulocyte % (Auto) 1, Neutrophils (%) (Auto) 83H, Lymphocytes (%) (Auto) 6L, Monocytes (%) (Auto) 10, Eosinophils (%) (Auto) 0, Basophils (%) (Auto) 0, Neutrophils # (Auto) 9.0H, Lymphocytes # (Auto) 0.7L, Monocytes # (Auto) 1.1H, Eosinophils # (Auto) 0.0, Basophils # (Auto) 0.0, Immature Granulocyte # (Auto) 0.1, Neutrophils % (Manual) 84, Lymphocytes % (Manual) 10, Monocytes % (Manual) 5, Band Neutrophils 1, Blood Morphology Comment NORMAL, Sodium Level 139, Potassium Level 3.9, Chloride Level 110H, Carbon Dioxide Level 19L, Anion Gap 10, Blood Urea Nitrogen 22H, Creatinine 0.83, Estimat Glomerular Filtration Rate > 60, BUN/Creatinine Ratio 27, Glucose Level 96, Calcium Level 7.7L, Phosphorus Level 2.5, Magnesium Level 2.1 Microbiology 08/02/20 Influenza Types A,B Antigen (JENN) - Final, Complete Radiology NAME: MORENA MARTINEZ [facility] REC#: [id number] PT STATUS: REG ER : 1935 PHYSICIAN: AFIA KIRBY APRN ADMIT DATE: 07/31/20/ER Signed Date of Exam:07/31/20 CHEST 1 VIEW, AP/PA ONLY EXAMINATION: Chest 1 view HISTORY: Chest pain COMPARISON: Chest radiograph 04/20/2019 FINDINGS: Heart size is mildly enlarged. A vascular stent is noted overlying the left mediastinum. A loop recorder is present. Pulmonary vasculature is normal. The lungs are clear without consolidation, pleural effusion, or pneumothorax. The osseous structures are intact. IMPRESSION: 1. No acute radiographic abnormality in the chest. Dictated by: Dictated on workstation # [id number] Dict: 07/31/201840 Trans: 07/31/201909 [facility] [id number] Interpreted by: BENNY MEZA DO Electronically signed by: BENNY MEZA DO 07/31/201909 Assessment/Plan Assessment/Plan (1) Acute respiratory failure with hypoxia Status: Acute Assessment & Plan: Had onset of hypoxia when nearing discharge, requiring Vapotherm with FiO2 50% this morning. Uncertain etiology, consider pneumonia vs COVID vs pulmonary edema. Received 20 mg IV lasix yesterday, will repeat. COVID pending. Treating for pneumonia but CXR without clear infiltrate. (2) Sepsis Status: Acute Assessment & Plan: Suspect possible pneumonia leading to sepsis with elevated WBC and tachycardia yesterday. However, has a fib and working on rate control and leukocytosis mild and maybe reactive. Continue Zosyn and vanc for now while awaiting cultures. Qualifiers: Qualified Codes: A41.9 - Sepsis, unspecified organism (3) Current use of mcfp anticoagulation Status: Chronic Assessment & Plan: On Xarelto, makes PE less likely as cause of hypoxia. (4) Non-STEMI (non-ST elevated myocardial infarction) Status: Acute Assessment & Plan: s/p urgent cath and angioplasty of 99% in-stent stenosis. Appreicate Cardiology recommendations. On dual antiplatelet therapy for a few more days. (5) Paroxysmal atrial fibrillation Status: Chronic Assessment & Plan: On Xarelto for stroke ppx, cardizem drip for rate control currently. On PO beta judith. (6) CAD (coronary artery disease) Status: Chronic Qualifiers: Qualified Codes: I25.10 - Atherosclerotic heart disease of [place] coronary artery without angina pectoris Clinical Quality Measures AMI/AHF: ASA po Prior to arrival: Yes DVT/VTE Risk/Contraindication: Risk Factor Score Per Nursin RFS Level Per Nursing on Admit: 4+=Very High REX MONTGOMERY MD Aug 03, 2020 14:16
[2020-08-03] MEDS ORDERED: meTOprolol TARTRATE 50 MG (LOPRESSOR) TAB ONE (14:40)
[2020-08-03] MEDS ORDERED: meTOprolol TARTRATE 50 MG (LOPRESSOR) TAB PO SCH (14:45)
[2020-08-03] MEDS ORDERED: VANCOMYCIN 1 GM/NS 250 ML IVPB IV SCH ×2 (16:00)
[2020-08-03] MEDS: RIVAROXABAN 15 MG TABLET (XARELTO) PO SCH (16:59)
--- NOTE | 2020-08-03 18:06 | Progress Note - Cardiology ---
Cardiology SOAP Progress Note Subjective: Gen malaise present Objective: I&O/Vital Signs 08/03/20 08/03/20 08/03/20 08/03/20 06:43 06:48 07:00 08:00 Pulse 96 116 89 Resp 15 20 B/P (MAP) 95/57 (70) Pulse Ox 92 92 92 O2 Delivery Vapotherm Vapotherm Vapotherm O2 Flow Rate 30.00 30.00 30.00 50.00 50.00 FiO2 55 08/03/20 08/03/20 08/03/20 08/03/20 09:00 09:00 10:00 10:27 Pulse 106 122 Resp 20 11 B/P (MAP) 103/74 (84) Pulse Ox 93 90 99 O2 Delivery Room Air Vapotherm Vapotherm Vapotherm O2 Flow Rate 30.00 30.00 30.00 50.00 50.00 FiO2 55 08/03/20 08/03/20 08/03/20 08/03/20 11:00 12:00 13:00 14:00 Pulse 99 112 90 104 Resp 11 26 22 39 B/P (MAP) 109/87 (94) 104/66 (79) 105/69 (81) 111/74 (86) Pulse Ox 71 84 86 O2 Delivery Vapotherm Vapotherm Vapotherm Vapotherm O2 Flow Rate 30.00 30.00 30.00 30.00 50.00 50.00 50.00 50.00 08/03/20 08/03/20 08/03/20 08/03/20 14:51 15:00 16:00 16:01 Temp 35.7 Pulse 120 114 Resp 16 14 B/P (MAP) 117/100 (106) 109/72 (84) Pulse Ox 97 96 O2 Delivery Vapotherm Vapotherm Vapotherm O2 Flow Rate 30.00 30.00 30.00 50.00 50.00 FiO2 55 08/03/20 00:00 Intake Total 770 ml Output Total 340 ml Balance 430 ml Weight (Pounds): 155 Weight (Ounces): 6.0 Weight (Calculated Kilograms): 70.919970 Results/Procedures: Labs Laboratory Tests 08/02/20 18:10: Lactic Acid Level 2.86*H 08/02/20 20:00: Blood Gas Puncture Site RGHT RAD, Blood Gas Patient Temperature 36.1, Arterial Blood pH 7.41, Arterial Blood Partial Pressure CO2 31L, Arterial Blood Partial Pressure O2 72L, Arterial Blood HCO3 19L, Arterial Blood Total CO2 20.3L, Arterial Blood Oxygen Saturation 96, Arterial Blood Base Excess -4.6L, Red Test POS, Blood Gas Ventilator Setting NO, Blood Gas Inspired Oxygen 40 08/02/20 20:50: Lactic Acid Level 1.80 08/03/20 07:45: White Blood Count 10.8, Red Blood Count 3.61L, Hemoglobin 10.7L, Hematocrit 35, Mean Corpuscular Volume 97, Mean Corpuscular Hemoglobin 30, Mean Corpuscular Hemoglobin Concent 31L, Red Cell Distribution Width 13.6, Platelet Count 216, Mean Platelet Volume 10.2, Immature Granulocyte % (Auto) 1, Neutrophils (%) (Auto) 83H, Lymphocytes (%) (Auto) 6L, Monocytes (%) (Auto) 10, Eosinophils (%) (Auto) 0, Basophils (%) (Auto) 0, Neutrophils # (Auto) 9.0H, Lymphocytes # (Auto) 0.7L, Monocytes # (Auto) 1.1H, Eosinophils # (Auto) 0.0, Basophils # (Auto) 0.0, Immature Granulocyte # (Auto) 0.1, Neutrophils % (Manual) 84, Lymphocytes % (Manual) 10, Monocytes % (Manual) 5, Band Neutrophils 1, Blood Morphology Comment NORMAL, Sodium Level 139, Potassium Level 3.9, Chloride Level 110H, Carbon Dioxide Level 19L, Anion Gap 10, Blood Urea Nitrogen 22H, Creatinine 0.83, Estimat Glomerular Filtration Rate > 60, BUN/Creatinine Ratio 27, Glucose Level 96, Calcium Level 7.7L, Phosphorus Level 2.5, Magnesium Level 2.1 Microbiology 08/02/20 Blood Culture - Preliminary, Resulted No growth 08/02/20 MRSA Screen - Final, Complete MRSA not isolated Laboratory Tests 08/02/20 04:07 08/03/20 07:45 A/P: Assessment: Pneumonia with sepsis - management per ICU and Hospitalist services A-fib with RVR - currently controlled rate with IV Cardizem NSTEMI and post-infarction angina Coronary artery disease with history of PTCA and stents to LAD in 2009 with cardiac catheterization 09/20/2013 revealing patent stents in the proximal and mid LAD; cath in 09/2018, after NSTEMI, showed distal edge stenosis in LAD stent that was treated with Stephania 2.25 x 8 mm. Cath on 08/01/20 showed 99% distal edge restenosis in a long LAD stented segment. This was treated with balloon angioplasty with no significant residual stenosis. Mild CAD elsewhere. LVEDP 28 mmHg Valvular heart disease followed at [facility]: h/o severe mitral regurgitation treated with percutaneous transcatheter repair of the mitral valve with Dr. Hines and David at in July 2019; repeat echo done in December 2019 showing moderate stenosis, valve area 2.5 cm with severe regurgitation. Ejection fraction 35-40 percent. PA pressure 45-50 mmHg Frequent PVCs with ventricular bigeminy, intolerant to Mexitil, the patient had severe nausea was unable to tolerated and it was discontinued H/O Atrial fibrillation with rapid ventricular rate, status post EROS with successful cardioversion August 2017. Was intolerant to amiodarone secondary to elevated LFTs and increased fatigue. Intolerance to Mexiletine with severe nausea and vomiting, intolerant to sotalol due to QT prolongation. ILR in place. H/o Multaq daily secondary to side effect of nausea with twice a day dosing. Currently in a-fib with controlled rate, per EKG of Jul 31, 2020. [id number] score of 5, patient is maintained on Xarelto. Hypertension Hyperlipidemia History of elevated LFTs while on amiodarone and Lipitor. Both medications were discontinued. Has tolerated Crestor, according to history Mild bilateral carotid artery stenosis. Last ultrasound was done in July [address] Carol Uriarte. CKD 3-4 Plan: Complex management Events of yesterday reviewed (sepsis and resp failure necessitating transfer to ICU) COVID PUI Pneumonia with sepsis - management per pulmonary services A-fib with RVR - rate improved with IV Cardizem - d/c iv dilt and increase bb Give diuretics as indicated Continue current cardiac regimen. In 3-4 more days, d/c one of the DAPT and continue the other and also continue rivaroxaban Monitor lab and replace electrolytes as indicated Clinical Quality Measures AMI/AHF: ASA po Prior to arrival: Yes DEANNA CHACKO MD FACP [facility] Aug 03, 2020 18:06
[2020-08-03] MEDS: meTOprolol TARTRATE 50 MG (LOPRESSOR) TAB PO SCH (20:05)
[2020-08-04] VITALS (16 sets, daily range): BP systolic 98–127; BP diastolic 56–105
--- NOTE | 2020-08-04 03:21 | Pulmonary Progress Note ---
ROMAIN GARCIA,MED STUDENT 08/04/20 0321: Subjective Date Seen by a Provider: Aug 04, 2020 Time Seen by a Provider: 03:00 Subjective/Events-last exam Afebrile, continuing to feel somewhat SOB this morning, also reports productive cough SpO2 95% on vapotherm at 55% FiO2 at 30L/min Continuing on Vanc and Cefepime Sepsis Event Evaluation Height, Weight, BMI Height: 5'5.00" Weight: 155lbs. 6.0oz. 70.766045qu; 25.97 BMI Method:Actual Focused Exam Lactate Level 08/02/20 14:39: Lactic Acid Level 3.20*H 08/02/20 18:10: Lactic Acid Level 2.86*H 08/02/20 20:50: Lactic Acid Level 1.80 Exam Exam Vital Signs Date Time Temp Pulse Resp B/P (MAP) Pulse Ox O2 Delivery O2 Flow Rate FiO2 08/04/20 01:00 112 08/04/20 00:00 113 26 109/88 (95) 95 Vapotherm 30.00 55.00 08/03/20 23:00 121 20 122/83 (96) 96 Vapotherm 30.00 55.00 08/03/20 22:00 117 20 107/99 (102) 92 Vapotherm 30.00 55.00 08/03/20 21:48 94 Vapotherm 30.00 55 08/03/20 21:00 Vapotherm 30.00 55 08/03/20 21:00 108 18 99/81 (87) 92 Vapotherm 30.00 55.00 08/03/20 20:00 115 22 121/81 (94) 92 Vapotherm 30.00 55.00 08/03/20 20:00 37.2 08/03/20 19:00 123 27 100/61 (74) 92 Vapotherm 30.00 55.00 08/03/20 19:00 115 08/03/20 18:00 122 21 113/62 (79) 98 Vapotherm 30.00 50.00 08/03/20 17:00 130 22 113/62 (79) 96 Vapotherm 30.00 50.00 08/03/20 16:01 35.7 08/03/20 16:00 114 14 109/72 (84) Vapotherm 30.00 50.00 08/03/20 15:00 120 16 117/100 (106) 96 Vapotherm 30.00 50.00 08/03/20 14:51 97 Vapotherm 30.00 55 08/03/20 14:00 104 39 111/74 (86) Vapotherm 30.00 50.00 08/03/20 13:00 90 22 105/69 (81) 86 Vapotherm 30.00 50.00 08/03/20 12:52 111 08/03/20 12:00 112 26 104/66 (79) 84 Vapotherm 30.00 50.00 08/03/20 11:00 99 11 109/87 (94) 71 Vapotherm 30.00 50.00 08/03/20 10:27 99 Vapotherm 30.00 55 08/03/20 10:00 122 11 90 Vapotherm 30.00 50.00 08/03/20 09:00 106 20 103/74 (84) 93 Vapotherm 30.00 50.00 08/03/20 09:00 Room Air 08/03/20 08:00 89 20 95/57 (70) 92 Vapotherm 30.00 50.00 08/03/20 07:00 116 15 92 Vapotherm 30.00 50.00 08/03/20 06:48 92 Vapotherm 30.00 55 08/03/20 06:43 96 08/03/20 06:00 102 22 116/79 (91) 90 Vapotherm 30.00 50.00 08/03/20 05:00 105 22 121/73 (89) 90 Vapotherm 30.00 50.00 08/03/20 04:00 104 15 112/69 (83) 92 Vapotherm 35.00 50.00 I & O 08/04/20 07:00 Intake Total 750 ml Output Total 1325 ml Balance -575 ml Height & Weight Height: 5'5.00" Weight: 155lbs. 6.0oz. 70.569200pe; 25.97 BMI Method:Actual General Appearance: No Apparent Distress, WD/WN, Chronically ill HEENT: PERRL/EOMI, Normal ENT Inspection, Pharynx Normal, Moist Mucous Membranes Neck: Full Range of Motion, Normal Inspection, Non Tender Respiratory: Chest Non Tender, Lungs Clear, Normal Breath Sounds, No Accessory Muscle Use, No Respiratory Distress Cardiovascular: No Edema, No Gallop, No JVD, No Murmur, Normal Peripheral Pulses, Tachycardia Capillary Refill: Less Than 3 Seconds Extremity: Normal Capillary Refill, Normal Inspection, Normal Range of Motion, Non Tender, No Calf Tenderness, No Pedal Edema Neurologic/Psychiatric: Alert, Oriented x3, No Motor/Sensory Deficits, Normal Mood/Affect Skin: Normal Color, Warm/Dry Lymphatic: No Adenopathy Results Lab Laboratory Tests 08/02/20 04:07 08/03/20 07:45 Assessment/Plan Assessment/Plan Acute respiratory failure -SpO2 95% on vapotherm 55% FiO2 -Multani cultures negative -COVID negative 08/02 -Influenza negative -attempt to wean vapotherm Acute pneumonia -Continue Cefepime and Vanco -Cultures negative -Negative for MRSA CHF with EF of 35-40% -Monitor Valvular heart disease hx of Paroxysmal Afib -Diltiazem d/c per cardiology, on PO metoprolol for rate control CKD CAD KATE BELTRÁN DO 08/04/20 0553: Assessment/Plan Assessment/Plan Acute respiratory failure -SpO2 95% on vapotherm 55% FiO2 -Multani cultures negative -COVID negative 08/02- -CXR reviewed -Influenza negative -attempt to wean vapotherm -Repeat Lasix Acute pneumonia -Continue Cefepime and d/c Vanco -MRSA swab is negative. -Cultures negative CHF with EF of 35-40% -Monitor -Repeat Lasix Valvular heart disease hx of Paroxysmal Afib -Diltiazem d/c per cardiology, on PO metoprolol for rate control CKD CAD ROMAIN GARCIA,MED STUDENT Aug 04, 2020 03:21 KATE BELTRÁN DO Aug 04, 2020 05:53
[2020-08-04 04:24] LABS: HEMOGLOBIN 10.7 g/dL (11.5-16.0); MEAN PLATELET VOLUME 10.6 fL (9.0-12.2); WHITE BLOOD COUNT 10.9 10^3/uL (4.3-11.0)
[2020-08-04 04:55] LABS: CHLORIDE 113 MMOL/L (98-107); POTASSIUM 3.7 MMOL/L (3.6-5.0); SODIUM 140 MMOL/L (135-145)
[2020-08-04 04:56] LABS: CALCIUM 7.8 MG/DL (8.5-10.1); GLUCOSE 98 MG/DL (70-105)
[2020-08-04 04:58] LABS: CARBON DIOXIDE 15 MMOL/L (21-32)
[2020-08-04 05:00] LABS: CREATININE SERUM 0.79 MG/DL (0.60-1.30); GFR ESTIMATED > 60
[2020-08-04 05:01] LABS: BUN/CREATININE RATIO 30
[2020-08-04] MEDS ORDERED: FUROSEMIDE 40 MG/4 ML INJ (LASIX) IVP ONE (06:00)
[2020-08-04] MEDS: CEFEPIME INJECTION 1,000 MG in WATER (STERILE) FOR INJECTION 10 ML IV SCH ×3 (06:41→20:36)
--- NOTE | 2020-08-04 07:51 | Diagnostic Imaging Report ---
INDICATION: Hypoxia. TECHNIQUE: Single view chest 2:10 AM. CORRELATION STUDY: 08/02/2020 FINDINGS: Heart size and mediastinum are relatively stable. Vasculature appears increased with increase in bilateral perihilar opacities. Additional opacities at the lung bases as well as the upper lobes right greater than left also appear increased. Bilateral pleural effusions. Loop recorder device over the cardiac apex. Overlying monitor leads are present. IMPRESSION: 1. Adverse change in appearance at follow-up. There appears to be increasing component of pulmonary vasculature congestion and likely perihilar and pulmonary edema. Bilateral pleural effusions also increased. Superimposed infiltrate would be difficult to exclude. Dictated by: Dictated on workstation # [id number]
[2020-08-04] MEDS ORDERED: KCL 20 MEQ TAB (K-DUR) PO ONE (08:00)
[2020-08-04] MEDS: CLOPIDOGREL 75 MG (PLAVIX) TABLET PO SCH (08:19)
[2020-08-04] MEDS: meTOprolol TARTRATE 50 MG (LOPRESSOR) TAB PO SCH (08:19)
[2020-08-04] MEDS: ASPIRIN 81 MG CHEW (CHILDREN'S ASA) PO SCH (08:20)
--- NOTE | 2020-08-04 08:37 | Progress Note - Cardiology ---
Cardiology SOAP Progress Note Subjective: Lying in bed. C/O SOB and freq cough. No c/o CP or palpitations. Objective: I&O/Vital Signs Weight (Pounds): 155 Weight (Ounces): 6.0 Weight (Calculated Kilograms): 70.716874 Constitutional: AAO x 3, well-developed, well-nourished Respiratory: No accessory muscle use, No respiratory distress; chest expansion is symmetric, chest is bilaterally symmetric, crackles (bi-basiler with diminished breath sounds) Cardiovascular: irregularly irregular; No JVD; S1 and S2 Gastrointestional: No tender; soft, round, audible bowel sounds Extremities: no lower extremity edema bilateral Neurologic/Psychiatric: grossly intact (moves extremities) Skin: No rash on exposed areas, No ulcerations on exposed areas Results/Procedures: Labs Microbiology 08/02/20 Blood Culture - Preliminary, Resulted No growth 08/02/20 MRSA Screen - Final, Complete MRSA not isolated Procedures NAME: MORENA MARTINEZ [facility] REC#: [id number] PT STATUS: ADM IN : 1935 PHYSICIAN: KATE BELTRÁN DO ADMIT DATE: 07/31/20/ICU Draft Date of Exam:08/04/20 CHEST 1 VIEW, AP/PA ONLY INDICATION: Hypoxia. TECHNIQUE: Single view chest 2:10 AM. CORRELATION STUDY: 08/02/2020 FINDINGS: Heart size and mediastinum are relatively stable. Vasculature appears increased with increase in bilateral perihilar opacities. Additional opacities at the lung bases as well as the upper lobes right greater than left also appear increased. Bilateral pleural effusions. Loop recorder device over the cardiac apex. Overlying monitor leads are present. IMPRESSION: 1. Adverse change in appearance at follow-up. There appears to be increasing component of pulmonary vasculature congestion and likely perihilar and pulmonary edema. Bilateral pleural effusions also increased. Superimposed infiltrate would be difficult to exclude. Dictated on workstation # [id number] Dict: 08/04/20 0741 Trans: 08/04/20 0750 JOSE RAFAEL [id number] Interpreted by: REBECCA KILLIAN DO Electronically signed by: A/P: Assessment: Pneumonia with sepsis - management per ICU and Hospitalist services A-fib with RVR - currently controlled rate with IV Cardizem NSTEMI and post-infarction angina Coronary artery disease with history of PTCA and stents to LAD in 2009 with cardiac catheterization 09/20/2013 revealing patent stents in the proximal and mid LAD; cath in 09/2018, after NSTEMI, showed distal edge stenosis in LAD stent that was treated with Stephania 2.25 x 8 mm. Cath on 08/01/20 showed 99% distal edge restenosis in a long LAD stented segment. This was treated with balloon angioplasty with no significant residual stenosis. Mild CAD elsewhere. LVEDP 28 mmHg Valvular heart disease followed at [facility]: h/o severe mitral regurgitation treated with percutaneous transcatheter repair of the mitral valve with Dr. Hines and David at [facility] in July 2019; repeat echo done in December 2019 showing moderate stenosis, valve area 2.5 cm with severe regurgitation. Ejection fraction 35-40 percent. PA pressure 45-50 mmHg Frequent PVCs with ventricular bigeminy, intolerant to Mexitil, the patient had severe nausea was unable to tolerated and it was discontinued H/O Atrial fibrillation with rapid ventricular rate, status post EROS with successful cardioversion August 2017. Was intolerant to amiodarone secondary to elevated LFTs and increased fatigue. Intolerance to Mexiletine with severe nausea and vomiting, intolerant to sotalol due to QT prolongation. ILR in ren ce. H/o Multaq daily secondary to side effect of nausea with twice a day dosing. Currently in a-fib with controlled rate, per EKG of Jul 31, 2020. [id number] score of 5, patient is maintained on Xarelto. Hypertension Hyperlipidemia History of elevated LFTs while on amiodarone and Lipitor. Both medications were discontinued. Has tolerated Crestor, according to history Mild bilateral carotid artery stenosis. Last ultrasound was done in July [address] Medina Osteoporosis. CKD 3-4 Plan: Complex management Events of yesterday reviewed (sepsis and resp failure necessitating transfer to ICU) COVID (-) Pneumonia with sepsis - management per pulmonary services A-fib with RVR - rate not well controlled - adjust medications as tolerated - d/t somewhat low BP this prevents us from further increasing BB - will reduce the lopressor to 25mg to allow BP room for long acting Diltiazem Give diuretics as indicated Continue current cardiac regimen. In 3-4 more days, d/c one of the DAPT and continue the other and also continue rivaroxaban Monitor lab and replace electrolytes as indicated There is no cardiology coverage over the weekend. Refer to primary care attending. If emergent cardiac services are need will require transfer to tertiary care facility, to be decided by primary care attending. Clinical Quality Measures AMI/AHF: ASA po Prior to arrival: Yes PARISH BONNER Aug 04, 2020 08:37
[2020-08-04] MEDS ORDERED: KCL 20 MEQ TAB (K-DUR) PO NR (08:45)
[2020-08-04] MEDS ORDERED: FUROSEMIDE 40 MG/4 ML INJ (LASIX) IVP NR (08:45)
--- NOTE | 2020-08-04 10:10 | Progress Note - Hospitalist ---
Subjective HPI/CC On Admission Date Seen by Provider: Aug 04, 2020 Time Seen by Provider: 08:30 CC: Chest pain with unstable angina HPI: This is an 84yoWF clinic pt of mine with a PMH of AF with severe heart disease with six stents in the past who presents to the [facility] ER with chest pain. Pt was found to have findings consistent with acute coronary syndrome and was therefore admitted. Cardiology has been consulted and will undergo a cardiac catheterization. At this current time she denies any significant other issues ot her than mild SOB that she feels is from her heart. We will await cardiology evaluation of the cardiac catheterization procedure. Subjective/Events-last exam Patient complains of being weak but thinks she might feel little bit better. Chest x-ray shows a right lower lobe infiltrate and increased vascular redistribution. Difficult to determine whether this is because of increased failure or consolidating pneumonia. Dr. Wolfe increase the Lasix today. Heart rates been running around 120 230 but her blood pressure has not tolerated an increase in the beta-judith. Cardiology is thinking about adding on Lanoxin for improved rate control she does complain of an nosebleed and would think she could do better if she had her Del Angel catheter out. Review of Systems Pulmonary: Cough Neurological: Weakness Focused Exam Lactate Level 08/02/20 14:39: Lactic Acid Level 3.20*H 08/02/20 18:10: Lactic Acid Level 2.86*H 08/02/20 20:50: Lactic Acid Level 1.80 Objective Exam Vital Signs Vital Signs Date Time Temp Pulse Resp B/P (MAP) Pulse Ox O2 Delivery O2 Flow Rate FiO2 08/04/20 09:00 121 20 111/79 (90) 95 Vapotherm 20.00 45.00 08/04/20 08:31 45 08/04/20 08:29 36.4 Capillary Refill : Less Than 3 Seconds General Appearance: No Apparent Distress, WD/WN Neck: Limited Range of Motion Respiratory: Lungs Clear, No Accessory Muscle Use Cardiovascular: Irregularly Irregular, Tachycardia Gastrointestinal: Normal Bowel Sounds, Non Tender Rectal: Deferred Back: Normal Inspection Extremity: No Pedal Edema Results/Procedures Lab Laboratory Tests 08/04/20 03:35 08/04/20 04:08 Patient resulted labs reviewed. Assessment/Plan Assessment and Plan Assess & Plan/Chief Complaint hypoxia most likely secondary to right lower lobe pneumonia and congestive failure-on cefepime and vancomycin Coronary artery disease with a non-STEMI status post stent for 99% occlusion Epistaxis secondary to Xarelto A. fib with RVR poorly tolerant of increased rate control secondary to hypotension Weakness we will start PT Metabolic acidosis Anemia currently stable Clinical Quality Measures AMI/AHF: ASA po Prior to arrival: Yes DVT/VTE Risk/Contraindication: Risk Factor Score Per Nursin RFS Level Per Nursing on Admit: 4+=Very High BONITA COLEMAN MD Aug 04, 2020 10:10
--- NOTE | 2020-08-04 11:23 | Physical Therapy Daily Note ---
PT Daily Note-Current Subjective Patient in bed pre tx, agrees to PT, has no complaints of pain. Appearance Patient in recliner post tx with nurse call, phone, tray, all needs met. Mental Status Patient Orientation: Person, Place, Situation Attachments: Oxygen, Del Angel Catheter, IV vapotherm Transfers SCALE: Activities may be completed with or without assistive devices. 7-Vtxpaqxloy-mhpcebr completes the activity by him/herself with no assistance from a helper. 5-Set-up or Clean-up Assistance-helper sets up or cleans up; patient completes activity. Lebo assists only prior to or following the activity. 4-Supervision or Touching Assistance-helper provides verbal cues and/or touching/steadying and/or contact guard assistance as patient completes activity. Assistance may be provided throughout the activity or intermittently. 3-Partial/Moderate Assistance-helper does LESS THAN HALF the effort. Lebo lifts, holds or supports trunk or limbs, but provides less than half the effort. 2-Substantial/Maximal Assistance-helper does MORE THAN HALF the effort. Lebo lifts or holds trunk or limbs and provides more than half the effort. 2-Tdymufbum-tswkwr does ALL the effort. Patient does none of the effort to complete the activity. Or, the assistance of 2 or more helpers is required for the patient to complete the activity. If activity was not attempted, code reason: 7-Patient Refused. 9-Not Applicable-not attempted and the patient did not perform the activity before the current illness, exacerbation or injury. 10-Not Attempted due to Environmental Limitations-(lack of equipment, weather restraints, etc.). 88-Not Attempted due to Medical Conditions or Safety Concerns. Roll Left & Right (QC): 6 Lying to Sitting/Side of Bed(Q: 6 Sit to Stand (QC): 4 Chair/Gyk-sh-Nfdff Xfer(QC): 4 SBA for sit to stand and transfer Gait Training Distance: 30' Walk 10 feet (QC): 4 Gait Persons Needed: 1 Gait Assistive Device: FWW SBA, patient was limited on how far she can ambulate due to vapotherm, she ambulated forward and back about 5'x6 for about 30 feet total. Steady ambulat ion going forward, slightly unsteady going backward but no LOB. Some SOB after ambulation but O2 was 94%. HR stayed in the 130-140 range. Exercises Seated Therapy Exercises: Ankle pumps, Long arc quads Seated Reps: 20 Treatments bed mobility and transfers, ambulation, LE exercise Assessment Current Status: Fair Progress Patient seems to be at the functional level she was at before going to ICU, maybe even a little better. Continue physical therapy and the predatory animal exterminator goals established previously when she was on cardiac overflow. PT Usp Goals Usp Goals PT Executive Producer Promos Goals Time Frame: Aug 09, 2020 Roll Left & Right (QC): 6 Sit to Lying (QC): 6 Lying-Sitting on Side/Bed(QC): 6 Sit to Stand (QC): 6 Chair/Pra-kp-Uwalr Xfer(QC): 6 Does the Patient Walk: Yes Walk 10 feet (QC): 6 Walk 50ft with 2 Turns (QC): 6 Walk 150 ft (QC): 6 PT Plan Problem List Problem List: Activity Tolerance, Functional Strength, Safety, Balance, Gait, Transfer Treatment/Plan Treatment Plan: Continue Plan of Care Treatment Plan: Bed Mobility, Education, Functional Activity Chip, Functional Strength, Gait, Safety, Therapeutic Exercise, Transfers Treatment Duration: Aug 09, 2020 Frequency: 6 times per week Estimated Hrs Per Day: .25 hour per day Patient and/or Family Agrees t: Yes Safety Risks/Education Patient Education: Gait Training, Transfer Techniques, Correct Positioning, Safety Issues Teaching Recipient: Patient Teaching Methods: Demonstration, Discussion Response to Teaching: Reinforcement Needed Time/GCodes Time In: 1100 Time Out: 1114 Total Billed Treatment Time: 14 Total Billed Treatment 1 visit FA LIBIA DEL ROSARIO PT Aug 04, 2020 11:23
--- NOTE | 2020-08-04 11:24 | Diagnostic Imaging Report ---
EXAMINATION: Portable erect AP chest at 10:46 a.m. INDICATION: Respiratory distress. The overall appearance of the chest has not changed significantly since the exam performed earlier today at 2:10 a.m. The heart is stable in size. There is still evidence of central pulmonary congestion as well as alveolar/interstitial pulmonary infiltrates involving both lungs. There is no sign of a pneumothorax. There is no chest tube identified either.. The loop recorder device and the cardiac surgical changes seen previously are also again evident and no different. The mediastinum is not widened. The osseous structures are intact. IMPRESSION: Stable chest. There has been no adverse change since the prior exam. Dictated by: Dictated on workstation # [id number]
--- NOTE | 2020-08-04 11:27 | Physical Therapy Daily Note ---
PT Daily Note-Current Subjective Patient in bed pre tx, agrees to PT, has no complaints of pain. Appearance Patient in recliner post tx with nurse call, phone, tray, all needs met. Mental Status Patient Orientation: Person, Place, Situation Attachments: Oxygen, Del Angel Catheter, IV vapotherm Transfers SCALE: Activities may be completed with or without assistive devices. 3-Hylxwquuux-lmucofe completes the activity by him/herself with no assistance from a helper. 5-Set-up or Clean-up Assistance-helper sets up or cleans up; patient completes activity. Antler assists only prior to or following the activity. 4-Supervision or Touching Assistance-helper provides verbal cues and/or touching/steadying and/or contact guard assistance as patient completes activity. Assistance may be provided throughout the activity or intermittently. 3-Partial/Moderate Assistance-helper does LESS THAN HALF the effort. Antler lifts, holds or supports trunk or limbs, but provides less than half the effort. 2-Substantial/Maximal Assistance-helper does MORE THAN HALF the effort. Antler lifts or holds trunk or limbs and provides more than half the effort. 9-Crqpyrcnq-wcnypy does ALL the effort. Patient does none of the effort to complete the activity. Or, the assistance of 2 or more helpers is required for the patient to complete the activity. If activity was not attempted, code reason: 7-Patient Refused. 9-Not Applicable-not attempted and the patient did not perform the activity before the current illness, exacerbation or injury. 10-Not Attempted due to Environmental Limitations-(lack of equipment, weather restraints, etc.). 88-Not Attempted due to Medical Conditions or Safety Concerns. Roll Left & Right (QC): 6 Lying to Sitting/Side of Bed(Q: 6 Sit to Stand (QC): 4 Chair/Zmp-ty-Lrvgf Xfer(QC): 4 SBA for sit to stand and transfer Gait Training Distance: 30' Walk 10 feet (QC): 4 Gait Persons Needed: 1 Gait Assistive Device: FWW SBA, patient was limited on how far she can ambulate due to vapotherm, she ambulated forward and back about 5'x6 for about 30 feet total. Steady ambulat ion going forward, slightly unsteady going backward but no LOB. Some SOB after ambulation but O2 was 94%. HR stayed in the 130-140 range. Exercises Seated Therapy Exercises: Ankle pumps, Long arc quads Seated Reps: 20 Treatments bed mobility and transfers, ambulation, LE exercise Assessment Current Status: Fair Progress Patient seems to be at the functional level she was at before going to ICU, maybe even a little better. Continue physical therapy and the termite treater goals established previously when she was on cardiac overflow. PT Detention Goals Detention Goals PT Apparel Manager Goals Time Frame: Aug 09, 2020 Roll Left & Right (QC): 6 Sit to Lying (QC): 6 Lying-Sitting on Side/Bed(QC): 6 Sit to Stand (QC): 6 Chair/Gkk-kl-Wsoxu Xfer(QC): 6 Does the Patient Walk: Yes Walk 10 feet (QC): 6 Walk 50ft with 2 Turns (QC): 6 Walk 150 ft (QC): 6 PT Plan Problem List Problem List: Activity Tolerance, Functional Strength, Safety, Balance, Gait, Transfer, Bed Mobility Treatment/Plan Treatment Plan: Continue Plan of Care Treatment Plan: Bed Mobility, Education, Functional Activity Chip, Functional Strength, Gait, Safety, Therapeutic Exercise, Transfers Treatment Duration: Aug 09, 2020 Frequency: 6 times per week Estimated Hrs Per Day: .25 hour per day Patient and/or Family Agrees t: Yes Safety Risks/Education Patient Education: Gait Training, Transfer Techniques, Correct Positioning, Safety Issues Teaching Recipient: Patient Teaching Methods: Demonstration, Discussion Response to Teaching: Reinforcement Needed Discharge Recommendations Plan continue PT with current goals, 6 visits per week Therapy Discharge Recommendati: Home & Family Time/GCodes Time In: 1100 Time Out: 1114 Total Billed Treatment Time: 14 Total Billed Treatment 1 visit FA LIBIA DEL ROSARIO PT Aug 04, 2020 11:27
--- NOTE | 2020-08-04 11:56 | Occupational Therapy Eval ---
OT Evaluation-General/PLF Medical Diagnosis Admission Date Jul 31, 2020 at 19:51 Medical Diagnosis: weakness, chest pain Onset Date: Jul 31, 2020 Therapy Diagnosis Therapy Diagnosis: decreased ADLs status, weakness Height/Weight Height (Feet): 5 Height (Inches): 5.00 Weight (Pounds): 155 Weight (Ounces): 6.0 Precautions Precautions/Isolations: Fall Prevention, Standard Precautions Referral Physician: Yaneth Referral Reason: Evaluation/Treatment Medical History Pertinent Medical History: Atrial Fib Additional Medical History ED with chest pain Current History AF with severe heart disease with 6 stents, afib, CAD, HTN, GERD, anixety Reviewed History: Yes Social History Home: Single Level Current Living Status: Other Family Entry Into Home: Stairs Without Railing Steps Into Home: 3 ADL-Prior Level of Function SCALE: Activities may be completed with or without assistive devices. 1-Wbpkdbmrah-xljfqlt completes the activity by him/herself with no assistance from a helper. 5-Set-up or Clean-up Assistance-helper sets up or cleans up; patient completes activity. Doole assists only prior to or following the activity. 4-Supervision or Touching Assistance-helper provides verbal cues and/or touching/steadying and/or contact guard assistance as patient completes activity. Assistance may be provided throughout the activity or intermittently. 3-Partial/Moderate Assistance-helper does LESS THAN HALF the effort. Doole lifts, holds or supports trunk or limbs, but provides less than half the effort. 2-Substantial/Maximal Assistance-helper does MORE THAN HALF the effort. Doole lifts or holds trunk or limbs and provides more than half the effort. 9-Ktfuxicsf-usyxwk does ALL the effort. Patient does none of the effort to complete the activity. Or, the assistance of 2 or more helpers is required for the patient to complete the activity. If activity was not attempted, code reason: 7-Patient Refused. 9-Not Applicable-not attempted and the patient did not perform the activity before the current illness, exacerbation or injury. 10-Not Attempted due to Environmental Limitations-(lack of equipment, weather restraints, etc.). 88-Not Attempted due to Medical Conditions or Safety Concerns. ADL PLOF Comments Pt indicates she was independent with bathing and dressing at PLOF, her family assists her with cooking and cleaning. She was independent with functional mobility with occasional use of cane. Self Care: Needed Some Help Functional Cognition: Independent DME/Equipment: Bath Chair, Grab Bars, Tub/Shower OT Current Status Subjective Pt seated in recliner, agreeable to OT tx. Pt did not verbalize any pain at this time. Mental Status/Objective Patient Orientation: Person, Place, Time, Situation Attachments: Del Angel Catheter, IV, Oxygen Current Glasses/Contacts: Yes Hearing Aids: Yes Dentures/Partials: No Hand Dominance: Right Upper Extremity ROM WFL, BUE shoulder flexion to approx 130 degrees Upper Extremity Coordination WFL Upper Extremity Sensation WFL Upper Extremity Strength grossly 3+/5 ADL-Treatment Eating (QC): 5 (set up assist) Oral Hygiene (QC): 5 (set up assist) Other Treatments Pt seated in recliner, agreeable to OT tx. OT educated pt on purpose and benefit of OT, she verbalized understanding. Pt provided information about PLOF and home set up, and participated in UE screen. Pt brushed teeth with set up assistance at tray table, she declined brushing her hair at this time. O2 saturation dropped to 86% with oral care, but increased to 90%s within a few seconds. OT educated pt on OT POC while she is in the hospital, with focus on increasing BUE strength and functional endurance, and increasing safety and independence with ADLs, pt verbalized understanding. Pt indicates she just got in chair and would like to stay in recliner. Post OT tx, pt seated in recliner, call light in reach and all needs met. Education OT Patient Education: Correct positioning, Energy conservation, Modified ADL techniques, Progress toward Goal/Update tx plan, Purpose of tx/functional activities, Rehab process Teaching Recipient: Patient Teaching Methods: Discussion Response to Teaching: Verbalize Understanding OT Intermediate Goals Wildlife Removal Specialist Goals Time Frame: Aug 11, 2020 Eating (QC): 6 Oral Hygiene (QC): 6 Toileting Hygiene (QC): 6 Shower/Bathe Self (QC): 6 Upper Body Dressing (QC): 6 Lower Body Dressing (QC): 6 On/Off Footwear (QC): 6 1=Demonstrate adherence to instructed precautions during ADL tasks. 2=Patient will verbalize/demonstrate understanding of assistive devices/modifications for ADL. 3=Patient will improve strength/tolerance for activity to enable patient to perform ADL's. OT Education/Plan Problem List/Assessment Assessment: Decreased Activ Tolerance, Decreased UE Strength, Impaired I ADL's, Impaired Self-Care Skills Discharge Recommendations Plan/Recommendations: Continue POC Treatment Plan/Plan of Care Treatment,Training & Education: Yes Patient would benefit from OT for education, treatment and training to promote independence in ADL's, mobility, safety and/or upper extremity function for ADL's. Plan of Care: ADL Retraining, Functional Mobility, UE Funct Exercise/Act Treatment Duration: Aug 11, 2020 Frequency: 5 times per week Estimated Hrs Per Day: .25 hour per day Rehab Potential: Fair Time/GCodes Start Time: 11:20 Stop Time: 11:30 Total Time Billed (hr/min): 10 Billed Treatment Time 1, JASS LUGO OT Aug 04, 2020 11:56
--- NOTE | 2020-08-04 13:25 | Progress Note - Cardiology ---
Cardiology SOAP Progress Note Subjective: Gen weakness and malaise Denies cp or palp or syncope or shortness of breath Denies n/v/d Objective: I&O/Vital Signs 08/04/20 08/04/20 08/04/20 08/04/20 02:00 03:00 04:00 05:00 Pulse 137 121 129 110 Resp 12 13 25 27 B/P (MAP) 121/103 (109) 127/105 (112) 122/78 (93) 120/78 (92) Pulse Ox 95 94 97 94 O2 Delivery Vapotherm Vapotherm Vapotherm Vapotherm O2 Flow Rate 30.00 30.00 30.00 30.00 55.00 55.00 55.00 55.00 08/04/20 08/04/20 08/04/20 08/04/20 06:00 06:32 07:00 07:00 Pulse 121 130 125 Resp 14 23 B/P (MAP) 126/74 (91) 98/85 (89) Pulse Ox 97 93 O2 Delivery Vapotherm Vapotherm Vapotherm O2 Flow Rate 30.00 20.00 20.00 55.00 45.00 45.00 08/04/20 08/04/20 08/04/20 08/04/20 08:00 08:29 08:31 09:00 Temp 36.4 Pulse 138 121 Resp 24 20 B/P (MAP) 111/68 (82) 111/79 (90) Pulse Ox 95 95 O2 Delivery Vapotherm Vapotherm Vapotherm O2 Flow Rate 20.00 20.00 20.00 45.00 45.00 FiO2 45 08/04/20 08/04/20 08/04/20 08/04/20 10:00 11:00 12:00 13:00 Pulse 116 137 134 128 Resp 14 15 24 B/P (MAP) 114/89 (97) 103/82 (89) 110/91 (97) Pulse Ox 96 96 97 O2 Delivery Vapotherm Vapotherm Vapotherm O2 Flow Rate 20.00 20.00 20.00 45.00 45.00 45.00 08/04/20 00:00 Intake Total 750 ml Output Total 1325 ml Balance -575 ml Weight (Pounds): 155 Weight (Ounces): 6.0 Weight (Calculated Kilograms): [id number] Constitutional: AAO x 3, well-developed, well-nourished Respiratory: No accessory muscle use, No respiratory distress; chest expansion is symmetric, chest is bilaterally symmetric, crackles (bi-basiler with diminished breath sounds) Cardiovascular: irregularly irregular; No JVD; S1 and S2 Gastrointestional: No tender; soft, round, audible bowel sounds Extremities: no lower extremity edema bilateral Neurologic/Psychiatric: grossly intact (moves extremities) Skin: No rash on exposed areas, No ulcerations on exposed areas Results/Procedures: Labs Laboratory Tests 08/04/20 03:35: Sodium Level 140, Potassium Level 3.7, Chloride Level 113H, Carbon Dioxide Level 15L, Anion Gap 12, Blood Urea Nitrogen 24H, Creatinine 0.79, Estimat Glomerular Filtration Rate > 60, BUN/Creatinine Ratio 30, Glucose Level 98, Calcium Level 7.8L 08/04/20 04:08: White Blood Count 10.9, Red Blood Count 3.64L, Hemoglobin 10.7L, Hematocrit 36, Mean Corpuscular Volume 98, Mean Corpuscular Hemoglobin 29, Mean Corpuscular Hemoglobin Concent 30L, Red Cell Distribution Width 13.5, Platelet Count 234, Mean Platelet Volume 10.6 Microbiology 08/02/20 Blood Culture - Preliminary, Resulted No growth 08/02/20 MRSA Screen - Final, Complete MRSA not isolated A/P: Assessment: Pneumonia with sepsis - management per ICU and Hospitalist services A-fib with RVR - currently controlled rate with IV Cardizem NSTEMI and post-infarction angina Coronary artery disease with history of PTCA and stents to LAD in 2009 with cardiac catheterization 09/20/2013 revealing patent stents in the proximal and mid LAD; cath in 09/2018, after NSTEMI, showed distal edge stenosis in LAD stent that was treated with Stephania 2.25 x 8 mm. Cath on 08/01/20 showed 99% distal edge restenosis in a long LAD stented segment. This was treated with balloon angioplasty with no significant residual stenosis. Mild CAD elsewhere. LVEDP 28 mmHg Valvular heart disease followed at [facility]: h/o severe mitral regurgitation treated with percutaneous transcatheter repair of the mitral valve with Dr. Hines and David at in July 2019; repeat echo done in December 2019 showing moderate stenosis, valve area 2.5 cm with severe regurgitation. Ejection fraction 35-40 percent. PA pressure 45-50 mmHg H/O Atrial fibrillation with rapid ventricular rate, status post EROS with successful cardioversion August 2017. Intolerant to amiodarone secondary to elevated LFTs and increased fatigue. H/o intolerance to sotalol due to QT prolongation. ILR in place. H/o Multaq tolerance only on once-a-day dosing. Currently in a-fib with controlled rate, per EKG of Jul 31, 2020. [id number] score of 5, patient is maintained on Xarelto. Hypertension Hyperlipidemia History of elevated LFTs while on amiodarone and Lipitor. Both medications were discontinued. Has tolerated Crestor, according to history Mild bilateral carotid artery stenosis. Last ultrasound was done in July [address] Carol Uriarte. CKD 3-4 Plan: Complex management COVID (-) Pneumonia with sepsis - management per pulmonary services A-fib with RVR - rate not well controlled - adjust medications as tolerated - d/t somewhat low BP this prevents us from further increasing BB - will reduce the lopressor to 25mg to allow BP room for long-acting Diltiazem Give diuretics as indicated Continue current cardiac regimen. In 3-4 more days, d/c aspirin and continue clopidogrel and also continue rivaroxaban Monitor lab and replace electrolytes as indicated There is no cardiology coverage over the weekend. Refer to primary care att ending. If emergent cardiac services are needed, will require transfer to tertiary care facility, to be decided by primary care attending. Clinical Quality Measures AMI/AHF: ASA po Prior to arrival: Yes DEANNA CHACKO MD FACP FAC CCDS Aug 04, 2020 13:25
[2020-08-04] MEDS ORDERED: TROUGH ORDER-PHARMACY XX NR (15:00)
--- NOTE | 2020-08-04 15:50 | NUR ---
REPORT GIVEN TO TERRENCE GLORIA, PATIENT AND BELONGINGS TO ROOM 509.
--- NOTE | 2020-08-04 15:55 | NUR ---
Patient arrived to room 509. All belongings with patient, call light within reach. I agree with previous RN's assessment and will assume care at this time.
[2020-08-04] MEDS: RIVAROXABAN 15 MG TABLET (XARELTO) PO SCH (17:05)
[2020-08-04] MEDS ORDERED: WATER (STERILE) FOR INJECTION 10 ML ONE (20:28)
[2020-08-04] MEDS ORDERED: CEFEPIME 1 GM/10 ML (MAXIPIME) VIAL ONE (20:28)
[2020-08-04] MEDS: meTOprolol TARTRATE 25 MG (LOPRESSOR) TABLET PO SCH (20:35)
[2020-08-05] VITALS: BP 116/92
[2020-08-05 04:06] VITALS: BP 129/97
[2020-08-05] MEDS ORDERED: WATER (STERILE) FOR INJECTION 10 ML ONE (05:23)
[2020-08-05] MEDS ORDERED: CEFEPIME 1 GM/10 ML (MAXIPIME) VIAL ONE (05:23)
[2020-08-05] MEDS: CEFEPIME INJECTION 1,000 MG in WATER (STERILE) FOR INJECTION 10 ML IV SCH ×4 (06:08→22:10)
[2020-08-05 07:39] VITALS: BP 111/86
[2020-08-05] MEDS: CLOPIDOGREL 75 MG (PLAVIX) TABLET PO SCH (08:10)
[2020-08-05] MEDS: ASPIRIN 81 MG CHEW (CHILDREN'S ASA) PO SCH (08:10)
[2020-08-05] MEDS: meTOprolol TARTRATE 25 MG (LOPRESSOR) TABLET PO SCH ×3 (08:11→20:06)
--- NOTE | 2020-08-05 09:20 | Physical Therapy Daily Note ---
PT Daily Note-Current Subjective Reports she is feeling much better today. Agrees to PT. No complaints. Reports she feels less SOA Mental Status Patient Orientation: Person, Place, Time, Situation Transfers SCALE: Activities may be completed with or without assistive devices. 5-Nuzabdypcw-hyfjjyj completes the activity by him/herself with no assistance from a helper. 5-Set-up or Clean-up Assistance-helper sets up or cleans up; patient completes activity. Ryde assists only prior to or following the activity. 4-Supervision or Touching Assistance-helper provides verbal cues and/or touching/steadying and/or contact guard assistance as patient completes activity. Assistance may be provided throughout the activity or intermittently. 3-Partial/Moderate Assistance-helper does LESS THAN HALF the effort. Ryde lifts, holds or supports trunk or limbs, but provides less than half the effort. 2-Substantial/Maximal Assistance-helper does MORE THAN HALF the effort. Ryde lifts or holds trunk or limbs and provides more than half the effort. 2-Ykkxroyky-xwfvqe does ALL the effort. Patient does none of the effort to complete the activity. Or, the assistance of 2 or more helpers is required for the patient to complete the activity. If activity was not attempted, code reason: 7-Patient Refused. 9-Not Applicable-not attempted and the patient did not perform the activity before the current illness, exacerbation or injury. 10-Not Attempted due to Environmental Limitations-(lack of equipment, weather restraints, etc.). 88-Not Attempted due to Medical Conditions or Safety Concerns. Treatments Sit to stand transfers with FWW with SB-CGA. In standing worked on deep breathing and upright posture, walking in place and calf raises. Spent time standing to promote LE strengthening and functional activity tolerance. Vapotherm in place throughout and post treatment. Assessment Current Status: Good Progress Progressing well and tolerated upright activity well. PT Lieutenant Colonel Goals Lieutenant Colonel Goals PT Lieutenant Colonel Goals Time Frame: Aug 09, 2020 Roll Left & Right (QC): 6 Sit to Lying (QC): 6 Lying-Sitting on Side/Bed(QC): 6 Sit to Stand (QC): 6 Chair/Xjm-ea-Mwnyz Xfer(QC): 6 Does the Patient Walk: Yes Walk 10 feet (QC): 6 Walk 50ft with 2 Turns (QC): 6 Walk 150 ft (QC): 6 PT Plan Problem List Problem List: Activity Tolerance, Functional Strength, Safety Treatment/Plan Treatment Plan: Continue Plan of Care Treatment Plan: Bed Mobility, Education, Functional Activity Chip, Functional Strength, Gait, Safety, Therapeutic Exercise, Transfers Treatment Duration: Aug 09, 2020 Frequency: 6 times per week Estimated Hrs Per Day: .25 hour per day Patient and/or Family Agrees t: Yes Safety Risks/Education Patient Education: Safety Issues Teaching Recipient: Patient Teaching Methods: Discussion Response to Teaching: Reinforcement Needed Discharge Recommendations Therapy Discharge Recommendati: Post Acute PT Time/GCodes Time In: 754 Time Out: 807 Total Billed Treatment Time: 15 Total Billed Treatment visit EX 15 VALENTE SAWYER PT Aug 05, 2020 09:20
--- NOTE | 2020-08-05 09:35 | Progress Note - Hospitalist ---
Subjective HPI/CC On Admission Date Seen by Provider: Aug 05, 2020 Time Seen by Provider: 09:15 CC: Chest pain with unstable angina HPI: This is an 84yo[facility] clinic pt of mine with a PMH of AF with severe heart disease with six stents in the past who presents to the [facility] ER with chest pain. Pt was found to have findings consistent with acute coronary syndrome and was therefore admitted. Cardiology has been consulted and will undergo a cardiac catheterization. At this current time she denies any significant other issues other than mild SOB that she feels is from her heart. We will await cardiology evaluation of the cardiac catheterization procedure. Subjective/Events-last exam Patient says that she feels much better today. She said she had a bowel movement. She says she is much less short of breath when she moves around. Her Vapotherm remains at 20/45. Review of Systems Pulmonary: Dyspnea Gastrointestinal: Nausea Neurological: Weakness Focused Exam Lactate Level 08/02/20 14:39: Lactic Acid Level 3.20*H 08/02/20 18:10: Lactic Acid Level 2.86*H 08/02/20 20:50: Lactic Acid Level 1.80 Objective Exam Vital Signs Vital Signs Date Time Temp Pulse Resp B/P (MAP) Pulse Ox O2 Delivery O2 Flow Rate FiO2 08/05/20 07:55 90 Vapotherm 20.00 45 08/05/20 07:39 36.2 113 21 111/86 (94) Capillary Refill : Less Than 3 Seconds General Appearance: No Apparent Distress, WD/WN Neck: Normal Inspection, Non Tender, Supple Respiratory: Lungs Clear, Normal Breath Sounds, No Accessory Muscle Use, No Respiratory Distress Cardiovascular: Irregularly Irregular, Tachycardia Gastrointestinal: Normal Bowel Sounds, Non Tender, Soft Back: Normal Inspection Extremity: No Pedal Edema Results/Procedures Lab Patient resulted labs reviewed. Assessment/Plan Assessment and Plan Assess & Plan/Chief Complaint hypoxia most likely secondary to right lower lobe pneumonia and congestive failure-on cefepime and vancomycin-will recheck a BMP-physically patient feels better Coronary artery disease with a non-STEMI status post stent for 99% occlusion Epistaxis secondary to Xarelto A. fib with RVR poorly tolerant of increased rate control secondary to hypotension-however blood pressure is better today and might tolerate an increase of her beta-judith versus adding Lanoxin Weakness we will start PT Metabolic acidosis-labs are pending Anemia currently stable Clinical Quality Measures AMI/AHF: ASA po Prior to arrival: Yes DVT/VTE Risk/Contraindication: Risk Factor Score Per Nursin RFS Level Per Nursing on Admit: 4+=Very High BONITA COLEMAN MD Aug 05, 2020 09:35
[2020-08-05 09:59] LABS: HEMOGLOBIN 11.5 g/dL (11.5-16.0); MEAN PLATELET VOLUME 10.6 fL (9.0-12.2); WHITE BLOOD COUNT 10.9 10^3/uL (4.3-11.0)
[2020-08-05 10:36] LABS: POTASSIUM 4.4 MMOL/L (3.6-5.0)
[2020-08-05 10:37] LABS: CALCIUM 8.1 MG/DL (8.5-10.1)
[2020-08-05 10:41] LABS: CREATININE SERUM 1.06 MG/DL (0.60-1.30)
[2020-08-05 11:43] VITALS: BP 113/79
[2020-08-05 15:35] VITALS: BP 99/78
--- NOTE | 2020-08-05 16:03 | Cardiology Progress Note ---
Cardiology SOAP Progress Note Subjective: Shortness of breath. Objective: I&O/Vital Signs 08/05/20 08/05/20 08/05/20 08/05/20 04:06 07:00 07:39 07:55 Temp 36.9 36.2 Pulse 108 130 113 Resp 18 21 B/P (MAP) 129/97 (108) 111/86 (94) Pulse Ox 95 95 90 O2 Delivery Vapotherm Vapotherm Vapotherm O2 Flow Rate 20.00 20.00 20.00 45.00 45.00 FiO2 45 08/05/20 08/05/20 08/05/20 08/05/20 08:40 11:43 12:40 15:35 Temp 35.9 36.4 Pulse 116 118 118 Resp 13 16 B/P (MAP) 113/79 (90) 99/78 (85) Pulse Ox 95 97 97 O2 Delivery Vapotherm Vapotherm Vapotherm O2 Flow Rate 20.00 20.00 20.00 45.00 45.00 FiO2 45 08/05/20 00:00 Intake Total 1110 ml Output Total 351 ml Balance 759 ml Weight (Pounds): 155 Weight (Ounces): 6.0 Weight (Calculated Kilograms): 70.325607 Constitutional: AAO x 3, apparent distress, well-developed, well-nourished Respiratory: No accessory muscle use, No respiratory distress; chest expansion is symmetric, chest is bilaterally symmetric, crackles (bi-basiler with diminished breath sounds) Cardiovascular: irregularly irregular; No JVD; S1 and S2 Gastrointestional: No tender; soft, round, audible bowel sounds Extremities: no lower extremity edema bilateral Neurologic/Psychiatric: grossly intact (moves extremities) Skin: No rash on exposed areas, No ulcerations on exposed areas Results/Procedures: Labs Laboratory Tests 08/05/20 09:54: White Blood Count 10.9, Red Blood Count 3.86, Hemoglobin 11.5, Hematocrit 37, Mean Corpuscular Volume 97, Mean Corpuscular Hemoglobin 30, Mean Corpuscular He moglobin Concent 31L, Red Cell Distribution Width 13.5, Platelet Count 332, Mean Platelet Volume 10.6, Sodium Level 141, Potassium Level 4.4, Chloride Level 109H , Carbon Dioxide Level 20L, Anion Gap 12, Blood Urea Nitrogen 35H, Creatinine 1.06, Estimat Glomerular Filtration Rate 49, BUN/Creatinine Ratio 33, Glucose Level 154H, Calcium Level 8.1L, B-Type Natriuretic Peptide 2126.3H Microbiology 08/02/20 Blood Culture - Preliminary, Resulted No growth 08/02/20 MRSA Screen - Final, Complete MRSA not isolated A/P: Assessment/Dx: Pneumonia with sepsis - management per ICU and Hospitalist services A-fib with RVR - NSTEMI and post-infarction angina Coronary artery disease with history of PTCA and stents to LAD in 2009 with cardiac catheterization 09/20/2013 revealing patent stents in the proximal and mid LAD; cath in 09/2018, after NSTEMI, showed distal edge stenosis in LAD stent that was treated with Stephania 2.25 x 8 mm. Cath on 08/01/20 showed 99% distal edge restenosis in a long LAD stented segment. This was treated with balloon angioplasty with no significant residual stenosis. Mild CAD elsewhere. LVEDP 28 mmHg Valvular heart disease followed at [facility]: h/o severe mitral regurgitation treated with percutaneous transcatheter repair of the mitral valve with Dr. Hines and David at in July 2019; repeat echo done in December 2019 showing moderate stenosis, valve area 2.5 cm with severe regurgitation. Ejection fraction 35-40 percent. PA pressure 45-50 mmHg H/O Atrial fibrillation with rapid ventricular rate, status post EROS with succes sful cardioversion August 2017. Intolerant to amiodarone secondary to elevated LFTs and increased fatigue. H/o intolerance to sotalol due to QT prolongation. ILR in place. H/o Multaq tolerance only on once-a-day dosing. Currently in a-fib with controlled rate, per EKG of Jul 31, 2020. [id number] score of 5, patient is maintained on Xarelto. Hypertension Hyperlipidemia History of elevated LFTs while on amiodarone and Lipitor. Both medications were discontinued. Has tolerated Crestor, according to history Mild bilateral carotid artery stenosis. Last ultrasound was done in July [address] Carol Uriarte. CKD 3-4 Plan: Complex management COVID (-) Pneumonia with sepsis - management per pulmonary services A-fib with RVR - rate not well controlled - adjust medications as tolerated. Continue Cardizem 180 mg daily. On Lopressor 25 mg twice a day. I will increase Lopressor to 25 mg 3 times a day. Give diuretics as indicated Continue current cardiac regimen. In 3-4 more days, d/c aspirin and continue clopidogrel and also continue rivaroxaban Monitor lab and replace electrolytes as indicated Thank you for your consultation. Please call me if you have any questions. Delfina Jones MD, FACP, FACC, FSCAI, FHRS, CCDS Interventional Cardiology Cardiac Electrophysiology Vascular Medicine and Endovascular Interventions Focused Exam Lactate Level 08/02/20 18:10: Lactic Acid Level 2.86*H 08/02/20 20:50: Lactic Acid Level 1.80 Clinical Quality Measures AMI/AHF: ASA po Prior to arrival: Yes Jose JONES MD Aug 05, 2020 16:03
[2020-08-05] MEDS: RIVAROXABAN 15 MG TABLET (XARELTO) PO SCH (16:19)
[2020-08-05 19:40] VITALS: BP 93/76
[2020-08-06] VITALS (7 sets, daily range): BP systolic 106–132; BP diastolic 85–103
[2020-08-06] MEDS: CEFEPIME INJECTION 1,000 MG in WATER (STERILE) FOR INJECTION 10 ML IV SCH ×3 (05:48→20:54)
[2020-08-06] MEDS: CLOPIDOGREL 75 MG (PLAVIX) TABLET PO SCH (08:33)
[2020-08-06] MEDS: meTOprolol TARTRATE 25 MG (LOPRESSOR) TABLET PO SCH ×3 (08:33→20:53)
[2020-08-06] MEDS: ASPIRIN 81 MG CHEW (CHILDREN'S ASA) PO SCH (08:33)
[2020-08-06 10:52] LABS: BASOPHILS % (AUTO) 0 % (0-10); EOSINOPHILS # (AUTO) 0.1 10^3/uL (0.0-0.3); EOSINOPHILS % (AUTO) 1 % (0-10); HEMATOCRIT 38 % (35-52); HEMOGLOBIN 11.5 g/dL (11.5-16.0); LYMPHOCYTES # (AUTO) 1.2 10^3/uL (1.0-4.0); LYMPHOCYTES % (AUTO) 10 % (12-44); MEAN CORPUSCULAR HEMOGLOBIN 30 pg (25-34); MEAN CORPUSCULAR HGB CONC 31 g/dL (32-36); MEAN CORPUSCULAR VOLUME 98 fL (80-99); MEAN PLATELET VOLUME 10.6 fL (9.0-12.2); MONOCYTES # (AUTO) 1.6 10^3/uL (0.0-1.0); MONOCYTES % (AUTO) 14 % (0-12); NEUTROPHILS # (AUTO) 8.7 10^3/uL (1.8-7.8); NEUTROPHILS % (AUTO) 75 % (42-75); PLATELET COUNT 334 10^3/uL (130-400); WHITE BLOOD COUNT 11.7 10^3/uL (4.3-11.0)
[2020-08-06 11:19] LABS: ALANINE AMINOTRANSFERASE 39 U/L (0-55); ALBUMIN 3.2 GM/DL (3.2-4.5); ALKALINE PHOSPHATASE 106 U/L (40-136); BILIRUBIN,TOTAL 0.7 MG/DL (0.1-1.0); BUN/CREATININE RATIO 42; CALCIUM 8.5 MG/DL (8.5-10.1); CARBON DIOXIDE 19 MMOL/L (21-32); CHLORIDE 111 MMOL/L (98-107); CREATININE SERUM 0.84 MG/DL (0.60-1.30); GFR ESTIMATED > 60; GLUCOSE 110 MG/DL (70-105); POTASSIUM 4.2 MMOL/L (3.6-5.0); SODIUM 141 MMOL/L (135-145); TOTAL PROTEIN 5.4 GM/DL (6.4-8.2)
--- NOTE | 2020-08-06 12:34 | Cardiology Progress Note ---
Cardiology SOAP Progress Note Subjective: Continues to be on Vapotherm. Shortness of breath. Objective: I&O/Vital Signs 08/06/20 08/06/20 08/06/20 08/06/20 04:26 07:00 07:56 08:34 Temp 36.3 36.0 Pulse 118 141 130 Resp 22 21 B/P (MAP) 106/87 (93) 115/89 (98) Pulse Ox 92 100 93 O2 Delivery Vapotherm Vapotherm Vapotherm O2 Flow Rate 20.00 20.00 20.00 45.00 45.00 35.00 08/06/20 08/06/20 08/06/20 09:00 11:57 12:15 Temp 36.0 Pulse 109 111 Resp 18 B/P (MAP) 131/90 (104) Pulse Ox 98 91 O2 Delivery Vapotherm Vapotherm O2 Flow Rate 20.00 20.00 35.00 FiO2 45 08/06/20 00:00 Intake Total 860 ml Balance 860 ml Weight (Pounds): 155 Weight (Ounces): 6.0 Weight (Calculated Kilograms): 70.210982 Constitutional: AAO x 3, apparent distress, well-developed, well-nourished Respiratory: No accessory muscle use, No respiratory distress; chest expansion is symmetric, chest is bilaterally symmetric, crackles (bi-basiler with diminished breath sounds) Cardiovascular: irregularly irregular; No JVD; S1 and S2 Gastrointestional: No tender; soft, round, audible bowel sounds Extremities: no lower extremity edema bilateral Neurologic/Psychiatric: grossly intact (moves extremities) Skin: No rash on exposed areas, No ulcerations on exposed areas Results/Procedures: Labs Laboratory Tests 08/06/20 10:40: White Blood Count 11.7H, Red Blood Count 3.83, Hemoglobin 11.5, Hematocrit 38, Mean Corpuscular Volume 98, Mean Corpuscular Hemoglobin 30, Mean Corpuscular Hemoglobin Concent 31L, Red Cell Distribution Width 13.5, Platelet Count 334, Mean Platelet Volume 10.6, Immature Granulocyte % (Auto) 0, Neutrophils (%) (Auto) 75, Lymphocytes (%) (Auto) 10L, Monocytes (%) (Auto) 14H, Eosinophils (%) (Auto) 1, Basophils (%) (Auto) 0, Neutrophils # (Auto) 8.7H, Lymphocytes # (Auto) 1.2, Monocytes # (Auto) 1.6H, Eosinophils # (Auto) 0.1, Basophils # (Auto) 0.0, Immature Granulocyte # (Auto) 0.1, Sodium Level 141, Potassium Level 4.2, Chloride Level 111H, Carbon Dioxide Level 19L, Anion Gap 11, Blood Urea Ni trogen 35H, Creatinine 0.84, Estimat Glomerular Filtration Rate > 60, BUN/Creatinine Ratio 42, Glucose Level 110H, Calcium Level 8.5, Corrected Calcium 9.1, Total Bilirubin 0.7, Aspartate Amino Transf (AST/SGOT) 37H, Alanine Aminotransferase (ALT/SGPT) 39, Alkaline Phosphatase 106, Total Protein 5.4L, Albumin 3.2 Microbiology 08/02/20 Blood Culture - Preliminary, Resulted No growth 08/02/20 MRSA Screen - Final, Complete MRSA not isolated A/P: Assessment/Dx: Pneumonia with sepsis - management per ICU and Hospitalist services A-fib with RVR - NSTEMI and post-infarction angina Coronary artery disease with history of PTCA and stents to LAD in 2009 with cardiac catheterization 09/20/2013 revealing patent stents in the proximal and mid LAD; cath in 09/2018, after NSTEMI, showed distal edge stenosis in LAD stent that was treated with Stephania 2.25 x 8 mm. Cath on 08/01/20 showed 99% distal edge restenosis in a long LAD stented segment. This was treated with balloon angioplasty with no significant residual stenosis. Mild CAD elsewhere. LVEDP 28 mmHg Valvular heart disease followed at [facility]: h/o severe mitral regurgitation treated with percutaneous transcatheter repair of the mitral valve with Dr. Hines and David at in July 2019; repeat echo done in December 2019 showing moderate stenosis, valve area 2.5 cm with severe regurgitation. Ejection fraction 35-40 percent. PA pressure 45-50 mmHg H/O Atrial fibrillation with rapid ventricular rate, status post EROS with successful cardioversion August 2017. Intolerant to amiodarone secondary to elevated LFTs and increased fatigue. H/o intolerance to sotalol due to QT prolongation. ILR in place. H/o Multaq tolerance only on once-a-day dosing. Currently in a-fib with controlled rate, per EKG of Jul 31, 2020. [id number] score of 5, patient is maintained on Xarelto. Hypertension Hyperlipidemia History of elevated LFTs while on amiodarone and Lipitor. Both medications were discontinued. Has tolerated Crestor, according to history Mild bilateral carotid artery stenosis. Last ultrasound was done in July [address] Carol Uriarte. CKD 3-4 Plan: Complex management COVID (-) Pneumonia with sepsis - management per pulmonary services A-fib with RVR - rate not well controlled - adjust medications as tolerated. Blood pressure 123 systolic today. Therefore she is tolerating Lopressor 25 mg 3 times a day. I will increase Cardizem from 180 mg daily to 240 mg daily. Discussed with the nurse and patient. Atrial fibrillation with RVR is occasionally difficult to control especially with significant lung pathology. Once there is improvement in the pulmonary condition, atrial fibrillation rate can be better managed. Give diuretics as indicated Continue current cardiac regimen. In 3-4 more days, d/c aspirin and continue clopidogrel and also continue rivaroxaban Monitor lab and replace electrolytes as indicated Thank you for your consultation. Please call me if you have any questions. Delfina Jones MD, FACP, FACC, FSCAI, FHRS, CCDS Interventional Cardiology Cardiac Electrophysiology Vascular Medicine and Endovascular Interventions Clinical Quality Measures AMI/AHF: ASA po Prior to arrival: Yes Jose JONES MD Aug 06, 2020 12:34
--- NOTE | 2020-08-06 13:16 | Progress Note ---
Subjective Subjective/Events-last exam Feeling much better per patient. She thinks shortness of breath improving. Titrating down on O2. Objective Exam Last Set of Vital Signs Vital Signs Date Time Temp Pulse Resp B/P (MAP) Pulse Ox O2 Delivery O2 Flow Rate FiO2 08/06/20 12:15 111 08/06/20 11:57 36.0 18 131/90 (104) 91 Vapotherm 20.00 35.00 08/06/20 09:00 45 Capillary Refill : Less Than 3 Seconds I&O Intake and Output 08/06/20 00:00 Intake Total 1160 ml Balance 1160 ml Intake Oral 1150 ml IV Total 10 ml # Voids 7 # Bowel Movements 1 General: Alert, Oriented X3, No Acute Distress HEENT: Atraumatic Neck: Supple Lungs: Clear to Auscultation, Other (poor air movement) Heart: Other (tachycardia) Abdomen: Normal Bowel Sounds, Soft Extremities: Other (trace pitting edema bilateral lower extremities) Psych/Mental Status: Mental Status NL, Mood NL Results/Procedures Lab Laboratory Tests 08/06/20 10:40: White Blood Count 11.7H, Red Blood Count 3.83, Hemoglobin 11.5, Hematocrit 38, Mean Corpuscular Volume 98, Mean Corpuscular Hemoglobin 30, Mean Corpuscular Hemoglobin Concent 31L, Red Cell Distribution Width 13.5, Platelet Count 334, Mean Platelet Volume 10.6, Immature Granulocyte % (Auto) 0, Neutrophils (%) (Auto) 75, Lymphocytes (%) (Auto) 10L, Monocytes (%) (Auto) 14H, Eosinophils (%) (Auto) 1, Basophils (%) (Auto) 0, Neutrophils # (Auto) 8.7H, Lymphocytes # (Auto) 1.2, Monocytes # (Auto) 1.6H, Eosinophils # (Auto) 0.1, Basophils # (Auto) 0.0, Immature Granulocyte # (Auto) 0.1, Sodium Level 141, Potassium Level 4.2, Chloride Level 111H, Carbon Dioxide Level 19L, Anion Gap 11, Blood Urea Nitrogen 35H, Creatinine 0.84, Estimat Glomerular Filtration Rate > 60, BUN/Creatinine Ratio 42, Glucose Level 110H, Calcium Level 8.5, Corrected Calcium 9.1, Total Bilirubin 0.7, Aspartate Amino Transf (AST/SGOT) 37H, Alanine Aminotransferase (ALT/SGPT) 39, Alkaline Phosphatase 106, Total Protein 5.4L, Albumin 3.2 Microbiology 08/02/20 Blood Culture - Preliminary, Resulted No growth 08/02/20 MRSA Screen - Final, Complete MRSA not isolated Radiology NAME: MORENA MARTINEZ [facility] REC#: [id number] PT STATUS: REG ER : 1935 PHYSICIAN: AFIA KIRBY APRN ADMIT DATE: 07/31/20/ER Signed Date of Exam:07/31/20 CHEST 1 VIEW, AP/PA ONLY EXAMINATION: Chest 1 view HISTORY: Chest pain COMPARISON: Chest radiograph 04/20/2019 FINDINGS: Heart size is mildly enlarged. A vascular stent is noted overlying the left mediastinum. A loop recorder is present. Pulmonary vasculature is normal. The lungs are clear without consolidation, pleural effusion, or pneumothorax. The osseous structures are intact. IMPRESSION: 1. No acute radiographic abnormality in the chest. Dictated by: Dictated on workstation # [id number] Dict: 07/31/201840 Trans: 07/31/201909 [facility] [id number] Interpreted by: BENNY MEZA DO Electronically signed by: BENNY MEZA DO 07/31/201909 Assessment/Plan Assessment/Plan (1) Acute respiratory failure with hypoxia Status: Acute Assessment & Plan: Had onset of hypoxia when nearing discharge, requiring Vapotherm with FiO2 50% this morning. Uncertain etiology, consider pneumonia vs COVID vs pulmonary edema. Received 20 mg IV lasix yesterday, will repeat. COVID pending. Treating for pneumonia but CXR without clear infiltrate. 08/06- Improving, no pneumonia on CXR. Stop cefepime. Continue to titrate down oxygen as able. (2) Sepsis Status: Acute Assessment & Plan: Suspect possible pneumonia leading to sepsis with elevated WBC and tachycardia yesterday. However, has a fib and working on rate control and leukocytosis mild and maybe reactive. Continue Zosyn and vanc for now while awaiting cultures. 08/06- Improving on oxygenation. Will repeat CXR in AM. Qualifiers: Qualified Codes: A41.9 - Sepsis, unspecified organism (3) Current use of terminal gauger anticoagulation Status: Chronic Assessment & Plan: On Xarelto, makes PE less likely as cause of hypoxia. (4) Non-STEMI (non-ST elevated myocardial infarction) Status: Acute Assessment & Plan: s/p urgent cath and angioplasty of 99% in-stent stenosis. Appreicate Cardiology recommendations. On dual antiplatelet therapy for a few more days. (5) Paroxysmal atrial fibrillation Status: Chronic Assessment & Plan: On Xarelto for stroke ppx, cardizem drip for rate control currently. On PO beta judith. (6) CAD (coronary artery disease) Status: Chronic Qualifiers: Qualified Codes: I25.10 - Atherosclerotic heart disease of [place] coronary artery without angina pectoris Clinical Quality Measures AMI/AHF: ASA po Prior to arrival: Yes DVT/VTE Risk/Contraindication: Risk Factor Score Per Nursin RFS Level Per Nursing on Admit: 4+=Very High TUNG BOYCE MD Aug 06, 2020 13:16
[2020-08-06] MEDS: RIVAROXABAN 15 MG TABLET (XARELTO) PO SCH (17:48)
[2020-08-07 00:14] VITALS: BP 100/73
[2020-08-07 04:00] VITALS: BP 127/98
[2020-08-07 04:02] VITALS: BP 109/78
[2020-08-07 04:09] LABS: BASOPHILS % (AUTO) 0 % (0-10); EOSINOPHILS # (AUTO) 0.1 10^3/uL (0.0-0.3); EOSINOPHILS % (AUTO) 1 % (0-10); HEMATOCRIT 36 % (35-52); LYMPHOCYTES # (AUTO) 1.3 10^3/uL (1.0-4.0); LYMPHOCYTES % (AUTO) 11 % (12-44); MEAN CORPUSCULAR HEMOGLOBIN 30 pg (25-34); MEAN CORPUSCULAR HGB CONC 31 g/dL (32-36); MEAN CORPUSCULAR VOLUME 97 fL (80-99); MEAN PLATELET VOLUME 10.5 fL (9.0-12.2); MONOCYTES # (AUTO) 1.7 10^3/uL (0.0-1.0); MONOCYTES % (AUTO) 14 % (0-12); NEUTROPHILS # (AUTO) 8.8 10^3/uL (1.8-7.8); NEUTROPHILS % (AUTO) 73 % (42-75); PLATELET COUNT 327 10^3/uL (130-400); WHITE BLOOD COUNT 12.1 10^3/uL (4.3-11.0)
[2020-08-07 04:26] LABS: ALBUMIN 3.2 GM/DL (3.2-4.5); CHLORIDE 109 MMOL/L (98-107); POTASSIUM 4.2 MMOL/L (3.6-5.0); SODIUM 142 MMOL/L (135-145)
[2020-08-07 04:28] LABS: CALCIUM 8.2 MG/DL (8.5-10.1)
[2020-08-07 04:29] LABS: GLUCOSE 109 MG/DL (70-105); TOTAL PROTEIN 5.4 GM/DL (6.4-8.2)
[2020-08-07 04:30] LABS: BILIRUBIN,TOTAL 0.8 MG/DL (0.1-1.0); CARBON DIOXIDE 21 MMOL/L (21-32)
[2020-08-07 04:32] LABS: ALKALINE PHOSPHATASE 119 U/L (40-136); CREATININE SERUM 0.88 MG/DL (0.60-1.30); GFR ESTIMATED > 60
[2020-08-07 04:33] LABS: BUN/CREATININE RATIO 38
[2020-08-07 04:35] LABS: ALANINE AMINOTRANSFERASE 36 U/L (0-55)
--- NOTE | 2020-08-07 05:57 | Pulmonary Progress Note ---
Subjective Time Seen by a Provider: 05:52 Subjective/Events-last exam Pt is doing much better. Sepsis Event Evaluation Height, Weight, BMI Height: 5'5.00" Weight: 155lbs. 6.0oz. 70.241791av; 25.97 BMI Method:Actual Exam Exam Vital Signs Date Time Temp Pulse Resp B/P (MAP) Pulse Ox O2 Delivery O2 Flow Rate FiO2 08/07/20 04:02 36.4 112 16 109/78 (88) 97 Vapotherm 15.00 35.00 08/07/20 01:21 96 Vapotherm 20.00 50 08/07/20 01:00 117 08/07/20 00:14 37.2 113 16 100/73 (82) 97 Vapotherm 15.00 35.00 08/06/20 21:32 96 Vapotherm 15.00 35 08/06/20 21:00 98 Vapotherm 15.00 35 08/06/20 20:52 112 124/98 (107) Vapotherm 15.00 35.00 08/06/20 19:59 36.2 105 16 132/89 (103) 92 Vapotherm 15.00 35.00 08/06/20 19:45 93 Vapotherm 15.00 35 08/06/20 19:00 123 08/06/20 15:10 36.4 96 12 131/103 (112) 91 Vapotherm 15.00 35.00 08/06/20 14:59 93 Vapotherm 15.00 35.00 08/06/20 12:15 111 08/06/20 11:57 36.0 109 18 131/90 (104) 91 Vapotherm 20.00 35.00 08/06/20 09:00 98 Vapotherm 20.00 45 08/06/20 08:34 93 Vapotherm 20.00 35.00 08/06/20 07:56 36.0 130 21 115/89 (98) 100 Vapotherm 20.00 45.00 08/06/20 07:00 141 I & O 08/07/20 07:00 Intake Total 3795 ml Balance 3795 ml Height & Weight Height: 5'5.00" Weight: 155lbs. 6.0oz. 70.670243kx; 25.97 BMI Method:Actual General Appearance: No Apparent Distress, WD/WN HEENT: PERRL/EOMI, Normal ENT Inspection, Pharynx Normal, Moist Mucous Membranes Neck: Normal Inspection, Non Tender, Supple Respiratory: Lungs Clear, Normal Breath Sounds, No Accessory Muscle Use, No Respiratory Distress Cardiovascular: Irregularly Irregular, Tachycardia Capillary Refill: Less Than 3 Seconds Extremity: No Pedal Edema Neurologic/Psychiatric: Alert, Oriented x3, No Motor/Sensory Deficits, Normal Mood/Affect Skin: Normal Color, Warm/Dry Lymphatic: No Adenopathy Results Lab Laboratory Tests 08/05/20 09:54 08/06/20 10:40 08/07/20 03:40 Assessment/Plan Assessment/Plan Acute respiratory failure -Currently on vapotherm at 35% -Change to regular NC at 5 liters/min -Start daily lasix -BNP is 2126-- Will repeat -Multani cultures negative -COVID negative 08/02 -Influenza negative Acute pneumonia -Currenlty on Cefepime -repeat PCT -Cultures negative -Negative for MRSA CHF with EF of 35-40% -Monitor -Lasix Valvular heart disease hx of Paroxysmal Afib -monitor -Xeralto PO CKD CAD KATE BELTRÁN DO Aug 07, 2020 05:57
[2020-08-07] MEDS: CEFEPIME INJECTION 1,000 MG in WATER (STERILE) FOR INJECTION 10 ML IV SCH (06:08)
--- NOTE | 2020-08-07 07:38 | Diagnostic Imaging Report ---
INDICATION: Followup pneumonia. COMPARISON: 08/04/2020 FINDINGS: Single frontal radiographic view of the chest was obtained and demonstrates persistent mild cardiomegaly. There is also mild pulmonary vascular congestion and prominence of pulmonary interstitium diffusely. Mild left basilar effusion is also noted. Small effusion is also suspected on the right. No pneumothorax is seen on either side. Overall, appearance is not significantly changed. IMPRESSION: 1. Stable exam of the chest showing cardiomegaly with presumed sequela of CHF. Interstitial opacities are favored to represent interstitial edema, although interstitial pneumonia cannot be entirely excluded. 2. Probable small bibasilar effusions. Dictated by: Dictated on workstation # [id number]
[2020-08-07] MEDS ORDERED: FUROSEMIDE 40 MG/4 ML INJ (LASIX) IVP NR (07:45)
[2020-08-07 08:00] VITALS: BP 127/98
[2020-08-07] MEDS: meTOprolol TARTRATE 25 MG (LOPRESSOR) TABLET PO SCH (08:10)
[2020-08-07] MEDS: ASPIRIN 81 MG CHEW (CHILDREN'S ASA) PO SCH (08:10)
[2020-08-07] MEDS: CLOPIDOGREL 75 MG (PLAVIX) TABLET PO SCH (08:10)
--- NOTE | 2020-08-07 08:45 | Occupational Ther Daily Note ---
OT Current Status-Daily Note Subjective Pt laying in bed, agreeable to OT tx. Pt did not verbalize any pain. Nursing present, stating pt is okay for OT at this time, and pt may transfer to 4th floor later today. ADL-Treatment Therapy Code Descriptions/Definitions Functional Butler Measure: 0=Not Assessed/NA 4=Minimal Assistance 1=Total Assistance 5=Supervision or Setup 2=Maximal Assistance 6=Modified Butler 3=Moderate Assistance 7=Complete IndependenceSCALE: Activities may be completed with or without assistive devices. 7-Rkifiarcil-uynrrkv completes the activity by him/herself with no assistance from a helper. 5-Set-up or Clean-up Assistance-helper sets up or cleans up; patient completes activity. [place] assists only prior to or following the activity. 4-Supervision or Touching Assistance-helper provides verbal cues and/or touching/steadying and/or contact guard assistance as patient completes activity. Assistance may be provided throughout the activity or intermittently. 3-Partial/Moderate Assistance-helper does LESS THAN HALF the effort. Butler lifts, holds or supports trunk or limbs, but provides less than half the effort. 2-Substantial/Maximal Assistance-helper does MORE THAN HALF the effort. Butler lifts or holds trunk or limbs and provides more than half the effort. 9-Lbxhxinuv-mnydxq does ALL the effort. Patient does none of the effort to complete the activity. Or, the assistance of 2 or more helpers is required for the patient to complete the activity. If activity was not attempted, code reason: 7-Patient Refused. 9-Not Applicable-not attempted and the patient did not perform the activity before the current illness, exacerbation or injury. 10-Not Attempted due to Environmental Limitations-(lack of equipment, weather restraints, etc.). 88-Not Attempted due to Medical Conditions or Safety Concerns. Oral Hygiene (QC): 7 Shower/Bathe Self (QC): 7 Other Treatment Pt agreeable to OT Tx, transferred supine to sit EOB with SBA. Pt's O2 sat dropping to low 80%'s, OT educated pt on pursed lip breathing, and pt able to increase O2 sat to mid 90%'s with in a few seconds. Pt then completed x5 reps each of the following BUE exercises at EOB: shoulder flexion, elbow flexion/extension, wrist flexion/extension, and finger flexion/extension. Pt required a rest break between each exercises, with cues to pursed lip breathing due to O2 dropping to mid 70%'s between exercises. Pt able to bring O2 sat to mid 90%'s within a few seconds each time. Pt then agreeable to transferring to recliner, but O2 dropped again to upper 70%'s, requiring cues for pursed lip breathing, pt's O2 increased to the mid 80%'s within a few seconds. Pt transferred supine, SBA then O2 sat returned to 90%'s within 1 min. OT educated pt on the importance of pursed lip breathing, she verbalized understanding. Post OT tx, pt laying in bed, bed alarm on, call light in reach and all needs met. Education OT Patient Education: Correct positioning, Modified ADL techniques, Progress toward Goal/Update tx plan, Purpose of tx/functional activities Teaching Recipient: Patient Teaching Methods: Discussion Response to Teaching: Verbalize Understanding OT Jail Goals [employer] Technician Goals Time Frame: Aug 11, 2020 Eating (QC): 6 Oral Hygiene (QC): 6 Toileting Hygiene (QC): 6 Shower/Bathe Self (QC): 6 Upper Body Dressing (QC): 6 Lower Body Dressing (QC): 6 On/Off Footwear (QC): 6 1=Demonstrate adherence to instructed precautions during ADL tasks. 2=Patient will verbalize/demonstrate understanding of assistive devices/modifications for ADL. 3=Patient will improve strength/tolerance for activity to enable patient to perform ADL's. OT Education/Plan Problem List/Assessment Assessment: Decreased Activ Tolerance, Decreased UE Strength, Impaired I ADL's, Impaired Self-Care Skills, Restricted Funct UE ROM Discharge Recommendations Plan/Recommendations: Continue POC Treatment Plan/Plan of Care Patient would benefit from OT for education, treatment and training to promote independence in ADL's, mobility, safety and/or upper extremity function for ADL's. Plan of Care: ADL Retraining, Functional Mobility, UE Funct Exercise/Act Treatment Duration: Aug 11, 2020 Frequency: 5 times per week Estimated Hrs Per Day: .25 hour per day Rehab Potential: Fair Time/GCodes Start Time: 08:13 Stop Time: 08:27 Total Time Billed (hr/min): 14 Billed Treatment Time 1, EX JASS JC OT Aug 07, 2020 08:45
[2020-08-07] MEDS ORDERED: DRONEDARONE TABLET 400 MG TABLET PO SCH (09:15)
--- NOTE | 2020-08-07 09:16 | Cardiology Progress Note ---
Subjective Date Seen by Provider: Aug 07, 2020 Time Seen by Provider: 09:11 Subjective/Events-last exam Patient is sitting in bed, comfortable, breathing better today. Review of Systems General: No Chills, No Night Sweats; Fatigue; No Malaise, No Appetite, No Other HEENT: No Head Aches, No Visual Changes, No Eye Pain, No Ear Pain, No Dysphasia, No Sinus Congestion, No Post Nasal Drip, No Sore Throat, No Other Pulmonary: No Dyspnea, No Cough, No Pleuritic Chest Pain, No Other Cardiovascular: No: Chest Pain, Palpitations, Orthopnea, Paroxysmal Noc. Dyspnea, Edema, Lt Headedness, Other Objective-Cardiology Exam Last Set of Vital Signs Vital Signs 08/07/20 08/07/20 01:21 04:02 Temp 36.4 Pulse 112 Resp 16 B/P (MAP) 109/78 (88) Pulse Ox 97 O2 Delivery Vapotherm O2 Flow Rate 15.00 35.00 FiO2 50 Capillary Refill : Less Than 3 Seconds I&O Intake and Output 08/07/20 00:00 Intake Total 1005 ml Balance 1005 ml Intake Oral 995 ml IV Total 10 ml # Voids 6 General: Alert, Oriented X3, No Acute Distress HEENT: Atraumatic Neck: Supple Lungs: Clear to Auscultation, Normal Air Movement Heart: Normal S1, Normal S2, Other (atrial fibrillation with rapid ventricular response) Abdomen: Normal Bowel Sounds, Soft Extremities: Other (trace pitting edema bilateral lower extremities) Neuro: Normal Gait, Normal Speech Psych/Mental Status: Mental Status NL, Mood NL Results Lab Laboratory Tests 08/06/20 10:40 08/07/20 03:40 A/P-Cardiology Admission Diagnosis Pneumonia Non-ST elevation myocardial infarction Atrial fibrillation Hypertension Assessment/Plan Pneumonia, resolving, receiving antibiotics and feeling better Atrial fibrillation with rapid ventricular response, Cardizem was increased to 240 mg daily and Lopressor 25 mg 3 times a day. I will increase Lopressor to 50 mg twice daily and evaluate tolerance and response. NSTEMI and post-infarction angina, no active chest pain was reported at this time. Continue to monitor Coronary artery disease with history of PTCA and stents to LAD in 2009 with cardiac catheterization 09/20/2013 revealing patent stents in the proximal and mid LAD; cath in 09/2018, after NSTEMI, showed distal edge stenosis in LAD stent that was treated with Stephania 2.25 x 8 mm. Cath on 08/01/20 showed 99% distal edge restenosis in a long LAD stented segment. This was treated with balloon angioplasty with no significant residual stenosis. Mild CAD elsewhere. LVEDP 28 mmHg Valvular heart disease followed at [facility]: h/o severe mitral regurgitation treated with percutaneous transcatheter repair of the mitral valve with Dr. Hines and David at in July 2019; repeat echo done in December 2019 showing moderate stenosis, valve area 2.5 cm with severe regurgitation. Ejection fraction 35-40 percent. PA pressure 45-50 mmHg H/O Atrial fibrillation with rapid ventricular rate, status post EROS with s uccessful cardioversion August 2017. Intolerant to amiodarone secondary to elevated LFTs and increased fatigue. H/o intolerance to sotalol due to QT prolongation. ILR in place. H/o Multaq tolerance only on once-a-day dosing. Currently in a-fib with controlled rate, per EKG of Jul 31, 2020. [id number] score of 5, patient is maintained on Xarelto. Hypertension, borderline hypotensive due to medication. Continue to monitor Hyperlipidemia, continue to monitor lipids History of elevated LFTs while on amiodarone and Lipitor. Both medications were discontinued. Has tolerated Crestor, according to history Mild bilateral carotid artery stenosis. Last ultrasound was done in July [address] Medina Osteoporosis. CKD 3-4 Clinical Quality Measures AMI/AHF: ASA po Prior to arrival: Yes DVT/VTE Risk/Contraindication: Risk Factor Score Per Nursin RFS Level Per Nursing on Admit: 4+=Very High VERÓNICA MEDINA MD Aug 07, 2020 09:16
--- NOTE | 2020-08-07 11:01 | Physical Therapy Daily Note ---
PT Daily Note-Current Subjective Patient just transferred from cardiac step down and agrees to PT. Mental Status Patient Orientation: Normal For Age Attachments: Oxygen (5L O2 NC) Transfers SCALE: Activities may be completed with or without assistive devices. 1-Vpnmbncwws-vctomui completes the activity by him/herself with no assistance from a helper. 5-Set-up or Clean-up Assistance-helper sets up or cleans up; patient completes activity. [place] assists only prior to or following the activity. 4-Supervision or Touching Assistance-helper provides verbal cues and/or touching/steadying and/or contact guard assistance as patient completes activity. Assistance may be provided throughout the activity or intermittently. 3-Partial/Moderate Assistance-helper does LESS THAN HALF the effort. [place] lifts, holds or supports trunk or limbs, but provides less than half the effort. 2-Substantial/Maximal Assistance-helper does MORE THAN HALF the effort. [place] lifts or holds trunk or limbs and provides more than half the effort. 5-Fnwdeslby-rzmyju does ALL the effort. Patient does none of the effort to complete the activity. Or, the assistance of 2 or more helpers is required for the patient to complete the activity. If activity was not attempted, code reason: 7-Patient Refused. 9-Not Applicable-not attempted and the patient did not perform the activity before the current illness, exacerbation or injury. 10-Not Attempted due to Environmental Limitations-(lack of equipment, weather restraints, etc.). 88-Not Attempted due to Medical Conditions or Safety Concerns. Lying to Sitting/Side of Bed(Q: 6 Sit to Stand (QC): 5 Chair/Mnj-vk-Gtinl Xfer(QC): 5 Gait Training Does the Patient Walk?: Yes Distance: 200' Walk 10 feet (QC): 5 Walk 50 ft with 2 Turns(QC): 5 Walk 150 ft (QC): 5 Gait Assistive Device: FWW no deviation/functional gait sequence Exercises Seated Therapy Exercises: Ankle pumps, Long arc quads, Hip flexion, Hip abd/add Seated Reps: 12 Assessment Patient much improved with SAO2 and functional mobility. PT to increase activity as tolerated by patient. PT Quality Review Trainer Goals Quality Review Trainer Goals PT Half-Way Goals Time Frame: Aug 09, 2020 Roll Left & Right (QC): 6 Sit to Lying (QC): 6 Lying-Sitting on Side/Bed(QC): 6 Sit to Stand (QC): 6 Chair/Ree-us-Khxst Xfer(QC): 6 Does the Patient Walk: Yes Walk 10 feet (QC): 6 Walk 50ft with 2 Turns (QC): 6 Walk 150 ft (QC): 6 PT Plan Treatment/Plan Treatment Plan: Continue Plan of Care Treatment Plan: Bed Mobility, Education, Functional Activity Chip, Functional Strength, Gait, Safety, Therapeutic Exercise, Transfers Treatment Duration: Aug 09, 2020 Frequency: 6 times per week Estimated Hrs Per Day: .25 hour per day Patient and/or Family Agrees t: Yes Time/GCodes Time In: 1040 Time Out: 1056 Total Billed Treatment Time: 16 Total Billed Treatment 1 visit FA 16 min GIANNA LIN PT Aug 07, 2020 11:01
--- NOTE | 2020-08-07 11:40 | Discharge Summary ---
Discharge Summary Hospital Course Problems/Diagnosis: (1) Acute respiratory failure with hypoxia Status: Acute Assessment & Plan: 08/03 Had onset of hypoxia when nearing discharge, requiring Vapotherm with FiO2 50% this morning. Uncertain etiology, consider pneumonia vs COVID vs pulmonary edema. Received 20 mg IV lasix yesterday, will repeat. COVID pending. Treating for pneumonia but CXR without clear infiltrate. 08/06- Improving, no pneumonia on CXR. Stop cefepime. Continue to titrate down oxygen as able. 08/07 changing to nasal cannula supplemental oxygen today, discharged to swing status. (2) Sepsis Status: Acute Assessment & Plan: Suspect possible pneumonia leading to sepsis with elevated WBC and tachycardia yesterday. However, has a fib and working on rate control and leukocytosis mild and maybe reactive. Continue Zosyn and vanc for now while awaiting cultures. 08/06- Improving on oxygenation. Will repeat CXR in AM. 08/07 continuing to improve, discharged to swing bed. Qualifiers: Qualified Codes: A41.9 - Sepsis, unspecified organism (3) Current use of shelter anticoagulation Status: Chronic Assessment & Plan: On Xarelto, makes PE less likely as cause of hypoxia. (4) Non-STEMI (non-ST elevated myocardial infarction) Status: Acute Assessment & Plan: 08/03 s/p urgent cath and angioplasty of 99% in-stent stenosis. Appreicate Cardiology recommendations. On dual antiplatelet therapy for a few more days. (5) Paroxysmal atrial fibrillation Status: Chronic Assessment & Plan: On Xarelto for stroke ppx, now on PO cardizem (initially required drip) On PO beta judith, still with tachycardia, discharge to swing status. Appreciate Cardiology recommendations. (6) CAD (coronary artery disease) Status: Chronic Qualifiers: Qualified Codes: I25.10 - Atherosclerotic heart disease of [place] coronary artery without angina pectoris Hospital Course Date of Admission: Jul 31, 2020 at 19:51 Admission Diagnosis : Family Physician/Provider: Giovana Hernandez DO Date of Discharge: 08/07/20 Discharge Diagnosis: See problem list Hospital Course: See problem list, discharged to swing bed status 08/07. Labs and Pending Lab Test: Laboratory Tests 08/07/20 03:40: White Blood Count 12.1H, Red Blood Count 3.71L, Hemoglobin 11.0L, Hematocrit 36, Mean Corpuscular Volume 97, Mean Corpuscular Hemoglobin 30, Mean Corpuscular Hemoglobin Concent 31L, Red Cell Distribution Width 13.5, Platelet Count 327, Mean Platelet Volume 10.5, Immature Granulocyte % (Auto) 1, Neutrophils (%) (Auto) 73, Lymphocytes (%) (Auto) 11L, Monocytes (%) (Auto) 14H, Eosinophils (%) (Auto) 1, Basophils (%) (Auto) 0, Neutrophils # (Auto) 8.8H, Lymphocytes # (Auto) 1.3, Monocytes # (Auto) 1.7H, Eosinophils # (Auto) 0.1, Basophils # (Auto) 0.0, Immature Granulocyte # (Auto) 0.1, Sodium Level 142, Potassium Level 4.2, Chloride Level 109H, Carbon Dioxide Level 21, Anion Gap 12, Blood Urea Nitrogen 33H, Creatinine 0.88, Estimat Glomerular Filtration Rate > 60, BUN/Creatinine Ratio 38, Glucose Level 109H, Calcium Level 8.2L, Corrected Calcium 8.8, Total Bilirubin 0.8, Aspartate Amino Transf (AST/SGOT) 32, Alanine Aminotransferase (ALT/SGPT) 36, Alkaline Phosphatase 119, B-Type Natriuretic Peptide 1660.0H, Total Protein 5.4L, Albumin 3.2, Procalcitonin 0.59H Microbiology 08/02/20 Blood Culture - Preliminary, Resulted No growth 08/02/20 MRSA Screen - Final, Complete MRSA not isolated Home Meds Active Potassium Chloride 10 Meq Capsule.er 10 Meq PO Q48H Lasix (Furosemide) 20 Mg Tablet 20 Mg PO Q48H Aspirin 81 Mg Tab.chew 81 Mg PO DAILY@0900 Metoprolol Succinate 50 Mg Tab.er.24h 50 Mg PO DAILY Reported Liver Complex Tablet (Milk Thistle/Nac/Dandel/[place]) 1 Each Tablet 1 Each PO DAILY Tylenol (Acetaminophen) 325 Mg Capsule 325-650 Mg PO Q8H PRN Vitamin C (Ascorbate Calcium) 500 Mg Tablet 500 Mg PO 1200 Xarelto (Rivaroxaban) 15 Mg Tablet 15 Mg PO 1700 Cephalexin 250 Mg Capsule 250 Mg PO HS Clopidogrel (Clopidogrel Bisulfate) 75 Mg Tablet 75 Mg PO 1200 Rosuvastatin Calcium 5 Mg Tablet 5 Mg PO HS Cranberry (Cranberry Extract) 500 Mg Tablet 500 Mg PO 1200 Assessment/Pt DC Instructions Discharged to [facility]. Discharge Physical Examination Allergies: Coded Allergies: Penicillins (Unverified Allergy, Mild, 04/19/09) General Appearance: No Apparent Distress Respiratory: Lungs Clear, Normal Breath Sounds Cardiovascular: Tachycardia Extremity: No Pedal Edema Skin: Normal Color, Warm/Dry Neurologic/Psychiatric: Alert, Normal Mood/Affect Clinical Quality Measures AMI/AHF: ASA po Prior to arrival: Yes DVT/VTE Risk/Contraindication: Risk Factor Score Per Nursin RFS Level Per Nursing on Admit: 4+=Very High REX MONTGOMERY MD Aug 07, 2020 11:40
[2020-08-07] MEDS ORDERED: meTOprolol TARTRATE 50 MG (LOPRESSOR) TAB PO SCH (21:00)
[2020-08-08] MEDS ORDERED: FUROSEMIDE 40 MG (LASIX) TAB PO SCH (09:00)
== END 2020-08-07 11:46 | disposition swing bed (61) | DRG 250 ==
LOC: EDUNIT# 18:17 → ER 18:20 → CSD 19:51 → ICU 08-02 16:34 → CSD 08-04 15:42
PROVIDERS: ADMIT Internal Medicine; ATTEND Family Medicine
PROC: 02703ZZ Dilation of Coronary Artery, One Artery, Percutaneous Approach (ICD-10-PCS; principal; 2020-08-01)
PROC: 4A023N7 Measurement of Cardiac Sampling and Pressure, Left Heart, Percutaneous Approach (ICD-10-PCS; 2020-08-01)
PROC: B2111ZZ Fluoroscopy of Multiple Coronary Arteries using Low Osmolar Contrast (ICD-10-PCS; 2020-08-01)
DX: T82.855A Stenosis of coronary artery stent, initial encounter (principal); I21.4 Non-ST elevation (NSTEMI) myocardial infarction; J96.01 Acute respiratory failure with hypoxia; A41.9 Sepsis, unspecified organism; I23.7 Postinfarction angina; I25.110 Atherosclerotic heart disease of native coronary artery with unstable angina pectoris; I13.0 Hypertensive heart and chronic kidney disease with heart failure and stage 1 through stage 4 chronic kidney disease, or unspecified chronic kidney disease; E87.2 Acidosis; Z66 Do not resuscitate; Z20.828 Contact with and (suspected) exposure to other viral communicable diseases; N18.30 Chronic kidney disease, stage 3 unspecified; E78.5 Hyperlipidemia, unspecified; I25.2 Old myocardial infarction; I48.0 Paroxysmal atrial fibrillation; K21.9 Gastro-esophageal reflux disease without esophagitis; M81.0 Age-related osteoporosis without current pathological fracture; F41.9 Anxiety disorder, unspecified; I05.0 Rheumatic mitral stenosis; I65.23 Occlusion and stenosis of bilateral carotid arteries; I49.3 Ventricular premature depolarization; R00.8 Other abnormalities of heart beat; I50.9 Heart failure, unspecified; N18.9 Chronic kidney disease, unspecified; R04.0 Epistaxis; T45.515A Adverse effect of anticoagulants, initial encounter; I95.9 Hypotension, unspecified; Z79.01 Long term (current) use of anticoagulants; Z95.5 Presence of coronary angioplasty implant and graft; Z79.02 Long term (current) use of antithrombotics/antiplatelets; Z90.49 Acquired absence of other specified parts of digestive tract; Z90.710 Acquired absence of both cervix and uterus
CPT/HCPCS: 36415; 71045; 71046; 80048; 80053; 80061; 80202; 81000; 82805; 82962; 83605; 83735; 83874; 83880; 84100; 84145; 84484; 85007; 85025; 85027; 85347; 85610; 85730; 87040; 87081; 87635; 87804; 93005; 93041; 93306; 93458; 94760

== ENCOUNTER 2020-08-07 11:02 | Inpatient (IN) | payer MEDICARE, OTHER ==
[~2020-08-07] VITALS: Ht 165.1 cm; Wt 73.2 kg
[2020-08-07 11:00] VITALS: BP 96/58
[~2020-08-07 11:02] MED LIST changes: +ACET325C7 PO; +ASCO-262 PO; +ASPI-999 PO; +CEPH250C PO; +FURO-125 PO; +METO50TA7 PO; +MILK1TAB PO; +POTA10TA PO; +RIVA15TA PO; +ZOLP5TAB PO
--- NOTE | 2020-08-07 11:23 | NUR ---
Swing Bed Note: Qualifies for swing bed for continued need of short term Physical Therapy et Occupational Therapy (s/p NSTEMI with weakness). She will also benefit from continued O2 monitoring et weaning while increasing her activity tolerance. Anticipate admission to swing bed today 08/07/20. Thank you for this referral!
[2020-08-07] MEDS ORDERED: NITROGLYCERIN 0.4 MG SL TABS BTL 25'S SL PRN (12:00)
[2020-08-07] MEDS ORDERED: ACETAMINOPHEN 325 MG TABLET PO PRN (12:00)
[2020-08-07] MEDS ORDERED: ONDANSETRON 4 MG/2 ML (SDV) Z0FRAN IV PRN (12:00)
[2020-08-07] MEDS ORDERED: NON-FORMULARY MEDICATION 1 EA EA (Cranberry Extract (Cranberry) 500 MG) PO SCH (12:00)
[2020-08-07] MEDS ORDERED: PATIENT MAY USE OWN MEDS, ALL PO SCH (12:00)
[2020-08-07] MEDS: CEFEPIME INJECTION 1,000 MG in WATER (STERILE) FOR INJECTION 10 ML IV SCH ×2 (13:25→20:28)
--- NOTE | 2020-08-07 13:35 | NUR ---
Admission Drug Regimen Review: Date: 08/07/20 Time: 1336 Review Completed, No Issues found
--- NOTE | 2020-08-07 14:41 | Physical Therapy Evaluation ---
PT Evaluation-General Medical Diagnosis Admission Date Aug 07, 2020 at 12:05 Medical Diagnosis: weakness/chest pain Onset Date: Jul 31, 2020 Therapy Diagnosis Therapy Diagnosis: debility/weakness Height/Weight Height (Feet): 5 Height (Inches): 5.00 Weight (Pounds): 155 Weight (Ounces): 6.0 Precautions Precautions/Isolations: Fall Prevention, Standard Precautions Referral Physician: Gregory Reason for Referral: Evaluation/Treatment Medical History Pertinent Medical History: Atrial Fib, CAD Current History transfer to [facility] status Reviewed History: Yes Social History Home: Single Level Current Living Status: Alone Entry Into Home: Stairs With Railing PT Steps Into Home: 3 Prior Prior Level of Function SCALE: Activities may be completed with or without assistive devices. 6-Bkbpyeycye-dccmucw completes the activity by him/herself with no assistance from a helper. 5-Set-up or Clean-up Assistance-helper sets up or cleans up; patient completes activity. [place] assists only prior to or following the activity. 4-Supervision or Touching Assistance-helper provides verbal cues and/or touching/steadying and/or contact guard assistance as patient completes activity. Assistance may be provided throughout the activity or intermittently. 3-Partial/Moderate Assistance-helper does LESS THAN HALF the effort. [place] lifts, holds or supports trunk or limbs, but provides less than half the effort. 2-Substantial/Maximal Assistance-helper does MORE THAN HALF the effort. [place] lifts or holds trunk or limbs and provides more than half the effort. 5-Pbrdsbvqd-huicwv does ALL the effort. Patient does none of the effort to complete the activity. Or, the assistance of 2 or more helpers is required for the patient to complete the activity. If activity was not attempted, code reason: 7-Patient Refused. 9-Not Applicable-not attempted and the patient did not perform the activity before the current illness, exacerbation or injury. 10-Not Attempted due to Environmental Limitations-(lack of equipment, weather restraints, etc.). 88-Not Attempted due to Medical Conditions or Safety Concerns. Bed Mobility: 6 Transfers (B,C,W/C): 6 Gait: 6 Stairs: 6 Indoor Mobility (Ambulation): Independent Stairs: Independent Prior Devices Use: None PT Evaluation-Current Subjective Patient agrees to PT. Appears slightly confused this p.m. Objective Patient Orientation: Person, Time, Situation Attachments: Oxygen (6L O2 NC) ROM/Strength ROM Lower Extremities bilateral LE WFL Strength Lower Extremities 3+/5 grossly bilateral LE Integumentary/Posture Integumentary refer to nursing notes Bowel Incontinence: No Bladder Incontinence: No Posture slightly kyphotic Neuromuscular (Tone, Coordination, Reflexes) grossly intact Sensory Vision: Wears Glasses Hearing: Impaired Transfers Roll Left & Right (QC): 6 Sit to Lying (QC): 6 Lying to Sitting/Side of Bed(Q: 6 Sit to Stand (QC): 5 Chair/Ktf-xh-Bwcuv Xfer(QC): 4 Toilet Transfer (QC): 4 Car Transfer (QC): 7 Gait Does the Patient Walk?: Yes Mode of Locomotion: Walk Anticipated Mode of Locomotion: Walk Walk 10 feet (QC): 5 Walk 50 ft with 2 Turns(QC): 5 Walk 150 ft (QC): 5 Walking 10ft/uneven surface-QC: 5 Distance: 250' Gait Assistive Device: FWW Comments/Gait Description shuffle gait sequence with slight trunk flexed posture Wheelchair Training Does the Pt Use a Wheelchair?: No Wheel 50 ft with 2 turns (QC): 9 Wheel 150 ft (QC): 9 Stairs #of Steps: 1 1 Step (curb) (QC): 4 4 Steps (QC): 88 12 Steps (QC): 88 Balance Sitting Static: Normal Sitting Dynamic: Normal Standing Static: Good Standing Dynamic: Good Picking up an Object (QC): 6 (seated position) Treatment bilateral LE exercises in sit and supine 12 reps of AP, QS, LAQ, SLR, HS/ambulate with FWW SBA to modified independent 250'/SAO2 with activity 85% on 6L NC with quick recovery. Assessment/Needs 84 y.o. female, will benefit from skilled PT to address functional strength and mobility to improve current LOF to safely return to home at maximum LOF. Rehab Potential: Fair PT Head Bucker Goals Custodial Goals PT Head Bucker Goals Time Frame: Aug 26, 2020 Roll Left & Right (QC): 6 Sit to Lying (QC): 6 Lying-Sitting on Side/Bed(QC): 6 Sit to Stand (QC): 6 Chair/Bqq-mj-Mctic Xfer(QC): 6 Toilet Transfer (QC): 6 Car Transfer (QC): 6 Does the Patient Walk: Yes Walk 10 feet (QC): 6 Walk 50ft with 2 Turns (QC): 6 Walk 150 ft (QC): 6 Walking 10ft on Uneven Surface: 6 1 Step (curb) (QC): 6 4 Steps (QC): 6 12 Steps (QC): 88 Picking up an Object (QC): 6 Does the Pt use WC or Scooter?: No Wheel 50 feet with 2 turns (QC: 9 Wheel 150 feet: 9 PT Plan Treatment/Plan Treatment Plan: Continue Plan of Care Treatment Plan: Bed Mobility, Education, Functional Activity Chip, Functional Strength, Gait, Safety, Therapeutic Exercise, Transfers Treatment Duration: Aug 26, 2020 Frequency: 6 times per week Estimated Hrs Per Day: .5 hour per day Patient and/or Family Agrees t: Yes Time/GCodes Time In: 1350 Time Out: 1425 Total Billed Treatment Time: 35 Total Billed Treatment 1 visit EVModC 14 min FA 21 min GIANNA LIN PT Aug 07, 2020 14:41
--- NOTE | 2020-08-07 15:33 | Occupational Therapy Eval ---
OT Evaluation-General/PLF Medical Diagnosis Admission Date Aug 07, 2020 at 12:05 Medical Diagnosis: weakness/chest pain Onset Date: Jul 31, 2020 Therapy Diagnosis Therapy Diagnosis: Decreased ADL status Height/Weight Height (Feet): 5 Height (Inches): 5.00 Weight (Pounds): 155 Weight (Ounces): 6.0 Precautions Precautions/Isolations: Fall Prevention, Standard Precautions Referral Physician: Gregory Medical History Pertinent Medical History: Atrial Fib, CAD Additional Medical History see nursing notes. Current History NSTEMI 08/01/20 Reviewed History: Yes Social History Home: Single Level Current Living Status: Other Family (son and daughter in law per pt.) Entry Into Home: Stairs With Railing Steps Into Home: 3 Pt states lives with son and daughter in law who drive pt, complete grocery/ cooking and cleaning tasks. Pt completes own laundry and ADL tasks. ADL-Prior Level of Function SCALE: Activities may be completed with or without assistive devices. 7-Ssbgcjklsw-ziknvvg completes the activity by him/herself with no assistance from a helper. 5-Set-up or Clean-up Assistance-helper sets up or cleans up; patient completes activity. [place] assists only prior to or following the activity. 4-Supervision or Touching Assistance-helper provides verbal cues and/or touching/steadying and/or contact guard assistance as patient completes activity. Assistance may be provided throughout the activity or intermittently. 3-Partial/Moderate Assistance-helper does LESS THAN HALF the effort. [place] lifts, holds or supports trunk or limbs, but provides less than half the effort. 2-Substantial/Maximal Assistance-helper does MORE THAN HALF the effort. [place] lifts or holds trunk or limbs and provides more than half the effort. 2-Ytxyfhswa-xpqpyz does ALL the effort. Patient does none of the effort to complete the activity. Or, the assistance of 2 or more helpers is required for the patient to complete the activity. If activity was not attempted, code reason: 7-Patient Refused. 9-Not Applicable-not attempted and the patient did not perform the activity before the current illness, exacerbation or injury. 10-Not Attempted due to Environmental Limitations-(lack of equipment, weather restraints, etc.). 88-Not Attempted due to Medical Conditions or Safety Concerns. ADL PLOF Comments Pt states IND without use of walker. 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 OT Current Status Subjective Pt AxO. In bed upon entry. Agrees to OT eval/ treat. Pt denies pain originally, then states a stinging pain in nostrils. Pt on 6L 02 NC, acute care nursing assistant provides moisturized air. Mental Status/Objective Patient Orientation: Person, Place, Situation Attachments: Oxygen (6L 02 NC) Current Glasses/Contacts: Yes Hearing Aids: No Hand Dominance: Right Upper Extremity ROM WFL BUE Upper Extremity Coordination WFL BUE Upper Extremity Sensation WFL BUE Upper Extremity Strength WFL BUE 4/5 ADL-Treatment Eating (QC): 6 Oral Hygiene (QC): 6 (per clinical judgement, IND in chair, SBA in upright stance.) Shower/Bathe Self (QC): 4 (SBA in stance. Pt able to reach all areas. ) Upper Body Dressing (QC): 5 (s/u gown ) Lower Body Dressing (QC): 4 (SBA in chair for donning over BLE and in stance hiking over hips.) On/Off Footwear (QC): 4 (SBA in chair.) Toileting Hygiene (QC): 4 (SBA during stance/ washing) Other Treatments Pt agrees to tx. In bed, bed mobility to EOB with SBA. Sit to stand with SBA and ambulates with walker to recliner. Pt is educated on OT role/ purpose. Agrees to sponge bath, completing as outlined. Pt sit to stands with SBA and completes all standing tasks with SBA, sitting/ bending tasks with SBA. Pt educated on benefits of upright positioning and completing UE ex throughout TV watching. Pt agrees. Pt is provided hand lotion, completes with IND. Pt left in recliner with LEs elevated, blanket on , all needs met, call light in reach. Education OT Patient Education: Correct positioning, Home exercise program, Purpose of tx/functional activities, Safety issues Teaching Recipient: Patient Teaching Methods: Demonstration, Discussion Response to Teaching: Verbalize Understanding, Return Demonstration OT Short Term Goals Short Term Goals Upper body dressin Lower body dressin Putting on/taking off footwear: 5 OT Alf Goals Buckle Attaching Machine Operator Goals Time Frame: Aug 14, 2020 Eating (QC): 6 Oral Hygiene (QC): 6 Toileting Hygiene (QC): 6 Shower/Bathe Self (QC): 6 Upper Body Dressing (QC): 6 Lower Body Dressing (QC): 6 On/Off Footwear (QC): 6 Additional Goals: 1-Demonstrate ADL Tasks, 2-Verbalize Understanding, 3- ImproveStrength/Chip 1=Demonstrate adherence to instructed precautions during ADL tasks. 2=Patient will verbalize/demonstrate understanding of assistive devices/m odifications for ADL. 3=Patient will improve strength/tolerance for activity to enable patient to perform ADL's. OT Education/Plan Problem List/Assessment Assessment: Decreased Activ Tolerance, Decreased UE Strength, Impaired I ADL's, Impaired Self-Care Skills Discharge Recommendations Plan/Recommendations: Continue POC Therapy Discharge Recommendati: Home & Family Treatment Plan/Plan of Care Treatment,Training & Education: Yes Patient would benefit from OT for education, treatment and training to promote independence in ADL's, mobility, safety and/or upper extremity function for ADL's. Plan of Care: ADL Retraining, Functional Mobility, UE Funct Exercise/Act Treatment Duration: Aug 14, 2020 Frequency: 5 times per week Estimated Hrs Per Day: .25 hour per day Agreement: Yes Rehab Potential: Fair Time/GCodes Start Time: 15:00 Stop Time: 15:25 Total Time Billed (hr/min): 25 Billed Treatment Time 1, EVM (10), ADL (15)= 25 STEPHANIE MCGEE OTR Aug 07, 2020 15:32
--- NOTE | 2020-08-07 15:42 | NUR ---
"RD ASSESSMENT PMHx: afib; CAD; HTN; GERD; osteoporosis; PT INTERACTION: Pt was awake and pleasant during nutrition assessment for LOS. Pt states current appetite is terrible and has been this way since admit. Note avg PO intake 28% x4d, per chart review. Pt states no issues with n/v/c/d. Note last BM was 12/5, and pt not currently on bowel regimen per chart review. Pt states recent wt gain, but unsure of amount/timeframe. Note 3# wt gain x4mon, per chart review. ABNORMAL NUTRITION-RELATED LAB VALUES LOW: Ca 8.2; Pro 5.4; HIGH: Cl 109; BUN 33; glu 109; Est. kcal needs: 7608-4489 kcal/kg | 20-25 kcal/kg Est. Pro needs: 59-73 g Pro | 0.8-1.0 g Pro/kg PES STATEMENT: Inadequate oral intake (NI-2.1) related to loss of appetite as evidenced by pt interview, and avg PO intake 28% x4d. INTERVENTION: Continue with current diet order of CHO 60g/m 1snack diet. Continue with current supplementation of Glucerna with meals TID, for increased kcal intake. Provides 220 kcal and 10 g Pro per serving. Will continue to follow and reassess as pt needs, intake, and status change. Garrick Moore MS RD LD [phone] cell"
[2020-08-07 17:14] VITALS: BP 116/78
[2020-08-07] MEDS: RIVAROXABAN 15 MG TABLET (XARELTO) PO SCH (17:27)
--- NOTE | 2020-08-07 18:03 | NUR ---
MORENA MARTINEZ admitted to swing bed status to room 414-1, with an admitting diagnosis of SWB CHF/PNA/AFIB, on 08/07/20 from acute inpatient status. Therapy to evaluate patient for activity needs. MORENA MARTINEZ introduced to surroundings, call light, bed controls, phone, TV, temperature control, lights, meal times, smoking policy, visitor policy, side rail policy, bathrooms, and showers. Patient rights given to patient in the handbook.. MORENA MARTINEZ verbalized understanding that [facility] is not responsible for the loss or damage to any personal effects or valuables that are kept in the patients possession during their hospitalization. The following care plans and discharge were discussed with MORENA MARTINEZ. MORENA MARTINEZ verbalizes understanding of the Interdisciplinary Patient Education. Patient informed about the Rapid Response Team and its purpose. Call light with in reach and patient demonstrates understanding of how to use. MORENA MARTINEZ reports no further needs at this time.
[2020-08-07 20:04] VITALS: BP 160/78
[2020-08-07] MEDS: DRONEDARONE TABLET 400 MG TABLET PO SCH (20:28)
[2020-08-07] MEDS: meTOprolol TARTRATE 50 MG (LOPRESSOR) TAB PO SCH (20:29)
[2020-08-08 05:04] VITALS: BP 97/61
[2020-08-08] MEDS: CEFEPIME INJECTION 1,000 MG in WATER (STERILE) FOR INJECTION 10 ML IV SCH (05:10)
[2020-08-08 06:24] LABS: BASOPHILS # (AUTO) 0.1 10^3/uL (0.0-0.1); BASOPHILS % (AUTO) 0 % (0-10); EOSINOPHILS # (AUTO) 0.2 10^3/uL (0.0-0.3); EOSINOPHILS % (AUTO) 2 % (0-10); HEMATOCRIT 33 % (35-52); HEMOGLOBIN 10.4 g/dL (11.5-16.0); LYMPHOCYTES # (AUTO) 1.5 10^3/uL (1.0-4.0); LYMPHOCYTES % (AUTO) 11 % (12-44); MEAN CORPUSCULAR HEMOGLOBIN 30 pg (25-34); MEAN CORPUSCULAR HGB CONC 32 g/dL (32-36); MEAN CORPUSCULAR VOLUME 95 fL (80-99); MEAN PLATELET VOLUME 10.2 fL (9.0-12.2); MONOCYTES # (AUTO) 1.6 10^3/uL (0.0-1.0); MONOCYTES % (AUTO) 12 % (0-12); NEUTROPHILS # (AUTO) 9.5 10^3/uL (1.8-7.8); NEUTROPHILS % (AUTO) 73 % (42-75); PLATELET COUNT 316 10^3/uL (130-400)
[2020-08-08 06:39] LABS: POTASSIUM 4.1 MMOL/L (3.6-5.0)
[2020-08-08 06:40] LABS: CALCIUM 7.9 MG/DL (8.5-10.1)
[2020-08-08 06:41] LABS: TOTAL PROTEIN 5.1 GM/DL (6.4-8.2)
[2020-08-08 06:43] LABS: BILIRUBIN,TOTAL 0.8 MG/DL (0.1-1.0)
[2020-08-08 06:45] LABS: CREATININE SERUM 0.99 MG/DL (0.60-1.30)
[2020-08-08 08:00] VITALS: BP 115/78
[2020-08-08] MEDS: CLOPIDOGREL 75 MG (PLAVIX) TABLET PO SCH (08:33)
[2020-08-08] MEDS: DRONEDARONE TABLET 400 MG TABLET PO SCH ×2 (08:33→20:28)
[2020-08-08] MEDS: meTOprolol TARTRATE 50 MG (LOPRESSOR) TAB PO SCH ×2 (08:33→20:27)
[2020-08-08] MEDS: ASPIRIN 81 MG CHEW (CHILDREN'S ASA) PO SCH (08:33)
[2020-08-08] MEDS: FUROSEMIDE 40 MG (LASIX) TAB PO SCH (08:34)
--- NOTE | 2020-08-08 10:32 | Cardiology Progress Note ---
Subjective Date Seen by Provider: Aug 08, 2020 Time Seen by Provider: 10:29 Subjective/Events-last exam patient was seen and evaluated, feeling better. No new complaint. Review of Systems General: No Chills, No Night Sweats, No Fatigue, No Malaise, No Appetite, No Other HEENT: No Head Aches, No Visual Changes, No Eye Pain, No Ear Pain, No Dysphasia, No Sinus Congestion, No Post Nasal Drip, No Sore Throat, No Other Pulmonary: No Dyspnea, No Cough, No Pleuritic Chest Pain, No Other Cardiovascular: No: Chest Pain, Palpitations, Orthopnea, Paroxysmal Noc. Dyspnea, Edema, Lt Headedness, Other Objective-Cardiology Exam Last Set of Vital Signs Vital Signs 08/08/20 08/08/20 05:04 06:37 Temp 36.4 Pulse 97 Resp 20 B/P (MAP) 97/61 (73) Pulse Ox 92 O2 Delivery Nasal Cannula O2 Flow Rate 5.00 Capillary Refill : Less Than 3 SecondsLess Than 3 Seconds I&O Intake and Output 08/08/20 00:00 Intake Total 1060 ml Balance 1060 ml Intake Oral 1060 ml # Voids 4 Daily Weight Change No General: Alert, Oriented X3, Cooperative HEENT: Atraumatic, PERRLA Neck: Supple, No JVD, No Thyromegaly Lungs: Clear to Auscultation, Normal Air Movement Heart: Normal S1, Normal S2, No Murmurs, Other (atrial fibrillation) Abdomen: Normal Bowel Sounds, Soft, No Tenderness, No Hepatosplenomegaly, No Masses Extremities: No Clubbing, No Cyanosis, No Edema, Normal Pulses, No Tenderness/Swelling Skin: No Rashes, No Breakdown, No Significant Lesion Neuro: Normal Gait, Normal Speech, Strength at 5/5 X4 Ext, Normal Tone, Sensation Intact Psych/Mental Status: Mental Status NL, Mood NL Results Lab Laboratory Tests 08/08/20 06:15 A/P-Cardiology Admission Diagnosis pneumonia Coronary artery disease Paroxysmal atrial fibrillation Hypertension Assessment/Plan Pneumonia, resolving, managed by primary care physician Atrial fibrillation with rapid ventricular response, lightly better heart rate at this time, tolerating current medication well. NSTEMI and post-infarction angina, no active chest pain was reported at this time. Continue to monitor Coronary artery disease with history of PTCA and stents to LAD in 2009 with cardiac catheterization 09/20/2013 revealing patent stents in the proximal and mid LAD; cath in 09/2018, after NSTEMI, showed distal edge stenosis in LAD stent that was treated with Stephania 2.25 x 8 mm. Cath on 08/01/20 showed 99% distal edge restenosis in a long LAD stented segment. This was treated with balloon angioplasty with no significant residual stenosis. Mild CAD elsewhere. LVEDP 28 mmHg Valvular heart disease followed at [facility]: h/o severe mitral regurgitation treated with percutaneous transcatheter repair of the mitral valve with Dr. Hines and David at in July 2019; repeat echo done in December 2019 showing moderate stenosis, valve area 2.5 cm with severe regurgitation. Ejection fraction 35-40 percent. PA pressure 45-50 mmHg H/O Atrial fibrillation with rapid ventricular rate, status post EROS with successful cardioversion August 2017. Intolerant to amiodarone secondary to elevated LFTs and increased fatigue. H/o intolerance to sotalol due to QT prolongation. ILR in place. H/o Multaq tolerance only on once-a-day dosing. Currently in a-fib with controlled rate, per EKG of Jul 31, 2020. [id number] score of 5, patient is maintained on Xarelto. Hypertension, origin current medication well. Continue to monitor Hyperlipidemia, continue to monitor lipids History of elevated LFTs while on amiodarone and Lipitor. Both medications were discontinued. Has tolerated Crestor, according to history Mild bilateral carotid artery stenosis. Last ultrasound was done in July [address] Medina Osteoporosis. CKD 3-4 Clinical Quality Measures DVT/VTE Risk/Contraindication: Risk Factor Score Per Nursin VERÓNICA MEDINA MD Aug 08, 2020 10:32
[2020-08-08 11:30] VITALS: BP 103/70
--- NOTE | 2020-08-08 14:29 | Occupational Ther Daily Note ---
OT Current Status-Daily Note Subjective Pt seated in recliner, agreeable to OT tx. Pt indicates she has already showered and brushed teeth this AM, declining further ADLs at this time. ADL-Treatment Therapy Code Descriptions/Definitions Functional [place] Measure: 0=Not Assessed/NA 4=Minimal Assistance 1=Total Assistance 5=Supervision or Setup 2=Maximal Assistance 6=Modified [place] 3=Moderate Assistance 7=Complete IndependenceSCALE: Activities may be completed with or without assistive devices. 4-Gvhaeuqdzd-cvsaxlq completes the activity by him/herself with no assistance from a helper. 5-Set-up or Clean-up Assistance-helper sets up or cleans up; patient completes activity. [place] assists only prior to or following the activity. 4-Supervision or Touching Assistance-helper provides verbal cues and/or touching/steadying and/or contact guard assistance as patient completes activity. Assistance may be provided throughout the activity or intermittently. 3-Partial/Moderate Assistance-helper does LESS THAN HALF the effort. [place] lifts, holds or supports trunk or limbs, but provides less than half the effort. 2-Substantial/Maximal Assistance-helper does MORE THAN HALF the effort. [place] lifts or holds trunk or limbs and provides more than half the effort. 6-Nlbyihxin-rymmll does ALL the effort. Patient does none of the effort to complete the activity. Or, the assistance of 2 or more helpers is required for the patient to complete the activity. If activity was not attempted, code reason: 7-Patient Refused. 9-Not Applicable-not attempted and the patient did not perform the activity before the current illness, exacerbation or injury. 10-Not Attempted due to Environmental Limitations-(lack of equipment, weather restraints, etc.). 88-Not Attempted due to Medical Conditions or Safety Concerns. Other Treatment Pt seated in recliner. In order to increase BUE strength and functional endurance, OT educated pt on UE exercises using moderate resistance red theraban d. OT demo'd each exercise, then pt able to complete x10 reps BUEs of the following exercises: shoulder flexion, horizontal abduction, external rotation, elbow flexion and elbow extension. Pt required rest break between each exercise. OT left print out of exercises and band in pt's room, instructing her to complete exercises a couple times a day, x10 reps each, increasing reps as t olerated, pt verbalized understanding. Post OT tx, pt seated in recliner, call light in reach and all needs met. Education OT Patient Education: Correct positioning, Energy conservation, Exercise program, Progress toward Goal/Update tx plan, Purpose of tx/functional activities Teaching Recipient: Patient Teaching Methods: Demonstration, Discussion Response to Teaching: Verbalize Understanding, Return Demonstration, Reinforcement Needed OT Short Term Goals Short Term Goals Upper body dressin Lower body dressin Putting on/taking off footwear: 5 OT Group Home Goals Agitator Operator Goals Time Frame: Aug 14, 2020 Eating (QC): 6 Oral Hygiene (QC): 6 Toileting Hygiene (QC): 6 Shower/Bathe Self (QC): 6 Upper Body Dressing (QC): 6 Lower Body Dressing (QC): 6 On/Off Footwear (QC): 6 Additional Goals: 1-Demonstrate ADL Tasks, 2-Verbalize Understanding, 3-ImproveStrength/Chip 1=Demonstrate adherence to instructed precautions during ADL tasks. 2=Patient will verbalize/demonstrate understanding of assistive devices/modifications for ADL. 3=Patient will improve strength/tolerance for activity to enable patient to perform ADL's. OT Education/Plan Problem List/Assessment Assessment: Decreased Activ Tolerance, Decreased UE Strength, Impaired I ADL's Discharge Recommendations Plan/Recommendations: Continue POC Treatment Plan/Plan of Care Patient would benefit from OT for education, treatment and training to promote independence in ADL's, mobility, safety and/or upper extremity function for ADL's. Plan of Care: ADL Retraining, Functional Mobility, UE Funct Exercise/Act Treatment Duration: Aug 14, 2020 Frequency: 5 times per week Estimated Hrs Per Day: .25 hour per day Agreement: Yes Rehab Potential: Fair Time/GCodes Start Time: 14:08 Stop Time: 14:23 Total Time Billed (hr/min): 15 Billed Treatment Time 1, EX JASS JC OT Aug 08, 2020 14:29
--- NOTE | 2020-08-08 14:34 | Physical Therapy Daily Note ---
PT Daily Note-Current Subjective Patient agrees to PT. No c/o. Mental Status Patient Orientation: Normal For Age Attachments: Oxygen (4L NC) Transfers SCALE: Activities may be completed with or without assistive devices. 0-Vvgnrfhpgy-ykxchdo completes the activity by him/herself with no assistance from a helper. 5-Set-up or Clean-up Assistance-helper sets up or cleans up; patient completes activity. [place] assists only prior to or following the activity. 4-Supervision or Touching Assistance-helper provides verbal cues and/or touching/steadying and/or contact guard assistance as patient completes activity. Assistance may be provided throughout the activity or intermittently. 3-Partial/Moderate Assistance-helper does LESS THAN HALF the effort. [place] lifts, holds or supports trunk or limbs, but provides less than half the effort. 2-Substantial/Maximal Assistance-helper does MORE THAN HALF the effort. [place] lifts or holds trunk or limbs and provides more than half the effort. 0-Anpxpxcxd-bnwryv does ALL the effort. Patient does none of the effort to complete the activity. Or, the assistance of 2 or more helpers is required for the patient to complete the activity. If activity was not attempted, code reason: 7-Patient Refused. 9-Not Applicable-not attempted and the patient did not perform the activity before the current illness, exacerbation or injury. 10-Not Attempted due to Environmental Limitations-(lack of equipment, weather restraints, etc.). 88-Not Attempted due to Medical Conditions or Safety Concerns. Sit to Stand (QC): 4 Gait Training Does the Patient Walk?: Yes Distance: 250' Walk 10 feet (QC): 4 Walk 50 ft with 2 Turns(QC): 4 Walk 150 ft (QC): 4 Gait Assistive Device: FWW multiple standing recovery periods due to SOA/fatigue with SAO2 >90% on 4L O2 NC. Exercises Seated Therapy Exercises: Ankle pumps, Long arc quads, Hip flexion Seated Reps: 12 (2 sets) Assessment Patient fatigued with minimal activity requiring multiple recovery periods due to SOA, however, SAO2 maintained >90% on 4L O2. PT to increase activity as tolerated by patient. PT Porcelain Enameling Supervisor Goals Snf Goals PT Snf Goals Time Frame: Aug 26, 2020 Roll Left & Right (QC): 6 Sit to Lying (QC): 6 Lying-Sitting on Side/Bed(QC): 6 Sit to Stand (QC): 6 Chair/Kbe-xb-Lujop Xfer(QC): 6 Toilet Transfer (QC): 6 Car Transfer (QC): 6 Does the Patient Walk: Yes Walk 10 feet (QC): 6 Walk 50ft with 2 Turns (QC): 6 Walk 150 ft (QC): 6 Walking 10ft on Uneven Surface: 6 1 Step (curb) (QC): 6 4 Steps (QC): 6 12 Steps (QC): 88 Picking up an Object (QC): 6 Does the Pt use WC or Scooter?: No Wheel 50 feet with 2 turns (QC: 9 Wheel 150 feet: 9 PT Plan Treatment/Plan Treatment Plan: Continue Plan of Care Treatment Plan: Bed Mobility, Education, Functional Activity Chip, Functional Strength, Gait, Safety, Therapeutic Exercise, Transfers Treatment Duration: Aug 26, 2020 Frequency: 6 times per week Estimated Hrs Per Day: .5 hour per day Patient and/or Family Agrees t: Yes Time/GCodes Time In: 1320 Time Out: 1343 Total Billed Treatment Time: 23 Total Billed Treatment 1 visit FA 13 min EX 10 min GIANNA LIN PT Aug 08, 2020 14:34
--- NOTE | 2020-08-08 16:11 | NUR ---
F/U with patient's daughter Rios per the primary care nurses request. Rios has several questions about discharge planning for her mother. She sounds very caring and concerned about her mother and has several questions that run into each other. Encouraged her that we would work together to make sure that her mother had everything that she needed when she discharges from our facility. She seemed to be relieved by our visit and voiced that she would feel better with [facility] and we also talked about the likely need of new medical equipment of oxygen. F/U with Rosa and she reports that she would feel better discharging to home on 08/10 because she doesn't quite feel strong enough yet. Encouraged her that we would work together to make sure she had all she needed when she is discharged et she voiced relief. She requested home health care and voiced that she would like to use [facility] d/t using in the past and really liking their staff. She voiced that if she needs oxygen at discharge then she would like to use [facility] in [place] for that need. She denies any further needs or concerns at this time.
[2020-08-08 17:18] VITALS: BP 103/74
[2020-08-08] MEDS: RIVAROXABAN 15 MG TABLET (XARELTO) PO SCH (17:40)
--- NOTE | 2020-08-08 20:04 | Progress Note ---
Subjective Date Seen by a Provider: Aug 08, 2020 Time Seen by a Provider: 09:45 Subjective/Events-last exam Pt doing pretty well today On swingbed to monitor heart rate and pneumonia Still on O2 and does not wear O2 at home Feels like she is doing a lot better Review of Systems General: Fatigue, Malaise Pulmonary: Dyspnea, Cough Objective Exam Last Set of Vital Signs Vital Signs Date Time Temp Pulse Resp B/P (MAP) Pulse Ox O2 Delivery O2 Flow Rate FiO2 08/08/20 17:18 36.4 93 18 103/74 (84) 100 Nasal Cannula 3.00 Capillary Refill : Less Than 3 SecondsNONE I&O Intake and Output 08/08/20 00:00 Intake Total 1060 ml Balance 1060 ml Intake Oral 1060 ml # Voids 4 Daily Weight Change No General: Alert, Oriented X3, Cooperative, No Acute Distress Lungs: Clear to Auscultation, Normal Air Movement Heart: Regular Rate, Normal S1, Normal S2, No Murmurs Neuro: Normal Gait, Normal Speech, Strength at 5/5 X4 Ext, Normal Tone Results Lab Laboratory Tests 08/08/20 06:15: White Blood Count 13.0H, Red Blood Count 3.47L, Hemoglobin 10.4L, Hematocrit 33L , Mean Corpuscular Volume 95, Mean Corpuscular Hemoglobin 30, Mean Corpuscular Hemoglobin Concent 32, Red Cell Distribution Width 13.5, Platelet Count 316, Mean Platelet Volume 10.2, Immature Granulocyte % (Auto) 1, Neutrophils (%) (Auto) 73, Lymphocytes (%) (Auto) 11L, Monocytes (%) (Auto) 12, Eosinophils (%) (Auto) 2, Basophils (%) (Auto) 0, Neutrophils # (Auto) 9.5H, Lymphocytes # (Auto) 1.5, Monocytes # (Auto) 1.6H, Eosinophils # (Auto) 0.2, Basophils # (Auto) 0.1, Immature Granulocyte # (Auto) 0.1, Sodium Level 140, Potassium Level 4.1, Chloride Level 107, Carbon Dioxide Level 24, Anion Gap 9, Blood Urea Nitrogen 35H, Creatinine 0.99, Estimat Glomerular Filtration Rate 53, BUN/Creatinine Ratio 35, Glucose Level 99, Calcium Level 7.9L, Corrected Calcium 8.7, Total Bilirubin 0.8, Aspartate Amino Transf (AST/SGOT) 33, Alanine Aminotransferase (ALT/SGPT) 36, Alkaline Phosphatase 108, Total Protein 5.1L, Albumin 3.0L Assessment/Plan Assessment/Plan Assess & Plan/Chief Complaint Assessment: NSTEMI s/p intervention s/p septic shock due to PNA Hypoxia Elevated wbc Chronic UTI Plan: Swing bed PT OT Diagnosis/Problems Diagnosis/Problems (1) Septic shock (2) Pneumonia (3) Non-STEMI (non-ST elevated myocardial infarction) Status: Acute (4) CAD (coronary artery disease) Status: Chronic (5) Paroxysmal atrial fibrillation Status: Chronic Clinical Quality Measures DVT/VTE Risk/Contraindication: Risk Factor Score Per Nursin GORDO OVERTON DO Aug 08, 2020 20:03
[2020-08-09 05:11] VITALS: BP 106/71
[2020-08-09] MEDS: DRONEDARONE TABLET 400 MG TABLET PO SCH ×2 (09:11→22:02)
[2020-08-09] MEDS: ASPIRIN 81 MG CHEW (CHILDREN'S ASA) PO SCH (09:11)
[2020-08-09] MEDS: meTOprolol TARTRATE 50 MG (LOPRESSOR) TAB PO SCH ×2 (09:11→22:01)
[2020-08-09] MEDS: FUROSEMIDE 40 MG (LASIX) TAB PO SCH (09:11)
[2020-08-09] MEDS: CLOPIDOGREL 75 MG (PLAVIX) TABLET PO SCH (09:11)
--- NOTE | 2020-08-09 09:20 | Cardiology Progress Note ---
Subjective Date Seen by Provider: Aug 09, 2020 Time Seen by Provider: 09:00 Subjective/Events-last exam Patient is in bed, had nose bleed earlier this morning, now under control. D enies any chest pain Review of Systems General: No Chills, No Night Sweats, No Fatigue, No Malaise, No Appetite, No Other HEENT: No Head Aches, No Visual Changes, No Eye Pain, No Ear Pain, No Dysphasia , No Sinus Congestion, No Post Nasal Drip, No Sore Throat, No Other Pulmonary: No Dyspnea, No Cough, No Pleuritic Chest Pain, No Other Cardiovascular: No: Chest Pain, Palpitations, Orthopnea, Paroxysmal Noc. Dysp chivo, Edema, Lt Headedness, Other Objective-Cardiology Exam Last Set of Vital Signs Vital Signs 08/09/20 08/09/20 08/09/20 05:11 06:40 09:00 Temp 36.5 Pulse 98 Resp 20 B/P (MAP) 106/71 (83) Pulse Ox 97 O2 Delivery Nasal Cannula O2 Flow Rate 2.00 Capillary Refill : Less Than 3 SecondsLess Than 3 Seconds I&O Intake and Output 08/09/20 00:00 Intake Total 1470 ml Output Total 800 ml Balance 670 ml Intake Oral 1470 ml Output Urine Total 800 ml # Voids 2 # Bowel Movements 1 General: Alert, Oriented X3, Cooperative, No Acute Distress HEENT: Atraumatic, PERRLA Neck: Supple, No JVD, No Thyromegaly Lungs: Clear to Auscultation, Normal Air Movement Heart: Regular Rate, Normal S1, Normal S2, No Murmurs Abdomen: Normal Bowel Sounds, Soft, No Tenderness, No Hepatosplenomegaly, No Masses Extremities: No Clubbing, No Cyanosis, No Edema, Normal Pulses, No Tenderness/Swelling Skin: No Rashes, No Breakdown, No Significant Lesion Neuro: Normal Gait, Normal Speech, Strength at 5/5 X4 Ext, Normal Tone Psych/Mental Status: Mental Status NL, Mood NL A/P-Cardiology Admission Diagnosis pneumonia Coronary artery disease Paroxysmal atrial fibrillation Hypertension Assessment/Plan Pneumonia, resolving, managed by primary care physician Atrial fibrillation with rapid ventricular response, slightly better heart rate at this time, tolerating current medication well. NSTEMI and post-infarction angina, no active chest pain was reported at this time. Continue to monitor Coronary artery disease with history of PTCA and stents to LAD in 2009 with cardiac catheterization 09/20/2013 revealing patent stents in the proximal and mid LAD; cath in 09/2018, after NSTEMI, showed distal edge stenosis in LAD stent that was treated with Stephania 2.25 x 8 mm. Cath on 08/01/20 showed 99% distal edge restenosis in a long LAD stented segment. This was treated with balloon angioplasty with no significant residual stenosis. Mild CAD elsewhere. LVEDP 28 mmHg Valvular heart disease followed at [facility]: h/o severe mitral regurgitation treated with percutaneous transcatheter repair of the mitral valve with Dr. Hines and David at [facility] in July 2019; repeat echo done in December 2019 showing moderate stenosis, valve area 2.5 cm with severe regurgitation. Ejection fraction 35-40 percent. PA pressure 45-50 mmHg H/O Atrial fibrillation with rapid ventricular rate, status post EROS with successful cardioversion August 2017. Intolerant to amiodarone secondary to elevated LFTs and increased fatigue. H/o intolerance to sotalol due to QT prolongation. ILR in place. H/o Multaq tolerance only on once-a-day dosing. Currently in a-fib with controlled rate, per EKG of Jul 31, 2020. [id number] score of 5, patient is maintained on Xarelto. Hypertension,tolerating current medication well. Continue to monitor Hyperlipidemia, continue to monitor lipids History of elevated LFTs while on amiodarone and Lipitor. Both medications were discontinued. Has tolerated Crestor, according to history Mild bilateral carotid artery stenosis. Last ultrasound was done in July 2019, continue to monitor as outpatient. Osteoporosis. CKD 3-4, continue to monitor renal function Patient was seen and evaluated with Shannan, examination performed, management plan was discussed, agree with the current scribed note, I made few changes to the note using Italic font Patient was seen at bedside feeling better, no new complaint, breathing better Heart rate is better today. Tolerating current medication well. Okay for discharge and arrange for follow-up as an outpatient Clinical Quality Measures DVT/VTE Risk/Contraindication: Risk Factor Score Per Nursin SHANNAN GIL Aug 09, 2020 09:20 VERÓNICA MENDEZ MD Aug 09, 2020 11:43
[2020-08-09 12:00] VITALS: BP 97/56
--- NOTE | 2020-08-09 13:10 | Physical Therapy Daily Note ---
PT Daily Note-Current Subjective Patient in recliner pre tx, agrees to PT with some encouragement, has no complaints of pain. Appearance Patient in recliner post tx with nurse call, phone, tray, all needs met. Mental Status Patient Orientation: Person, Place, Situation Attachments: Oxygen Transfers SCALE: Activities may be completed with or without assistive devices. 1-Pndulqbpto-ejmqhla completes the activity by him/herself with no assistance from a helper. 5-Set-up or Clean-up Assistance-helper sets up or cleans up; patient completes activity. [place] assists only prior to or following the activity. 4-Supervision or Touching Assistance-helper provides verbal cues and/or touching/steadying and/or contact guard assistance as patient completes activity. Assistance may be provided throughout the activity or intermittently. 3-Partial/Moderate Assistance-helper does LESS THAN HALF the effort. [place] lifts, holds or supports trunk or limbs, but provides less than half the effort. 2-Substantial/Maximal Assistance-helper does MORE THAN HALF the effort. [place] lifts or holds trunk or limbs and provides more than half the effort. 2-Jybzjgipx-sayvgu does ALL the effort. Patient does none of the effort to complete the activity. Or, the assistance of 2 or more helpers is required for the patient to complete the activity. If activity was not attempted, code reason: 7-Patient Refused. 9-Not Applicable-not attempted and the patient did not perform the activity before the current illness, exacerbation or injury. 10-Not Attempted due to Environmental Limitations-(lack of equipment, weather restraints, etc.). 88-Not Attempted due to Medical Conditions or Safety Concerns. Sit to Stand (QC): 4 Chair/Pur-ee-Bkiax Xfer(QC): 4 SBA Gait Training Distance: 100'x2 Gait Persons Needed: 1 SBA, slow but steady ambulation, rest break between bouts of amb Exercises Seated Therapy Exercises: Ankle pumps, Long arc quads Seated Reps: 20 Treatments transfers, ambulation, LE exercise Assessment Current Status: Fair Progress Patient not motivated to participate but does with encouragement, she says she is leaving today PT Residential Goals Presales Consultant Goals PT Residential Goals Time Frame: Aug 26, 2020 Roll Left & Right (QC): 6 Sit to Lying (QC): 6 Lying-Sitting on Side/Bed(QC): 6 Sit to Stand (QC): 6 Chair/Qzt-me-Baboo Xfer(QC): 6 Toilet Transfer (QC): 6 Car Transfer (QC): 6 Does the Patient Walk: Yes Walk 10 feet (QC): 6 Walk 50ft with 2 Turns (QC): 6 Walk 150 ft (QC): 6 Walking 10ft on Uneven Surface: 6 1 Step (curb) (QC): 6 4 Steps (QC): 6 12 Steps (QC): 88 Picking up an Object (QC): 6 Does the Pt use WC or Scooter?: No Wheel 50 feet with 2 turns (QC: 9 Wheel 150 feet: 9 PT Plan Problem List Problem List: Activity Tolerance, Functional Strength, Safety, Balance, Gait, Transfer, Bed Mobility, ROM Treatment/Plan Treatment Plan: Continue Plan of Care Treatment Plan: Bed Mobility, Education, Functional Activity Chip, Functional Strength, Gait, Safety, Therapeutic Exercise, Transfers Treatment Duration: Aug 26, 2020 Frequency: 6 times per week Estimated Hrs Per Day: .5 hour per day Patient and/or Family Agrees t: Yes Safety Risks/Education Patient Education: Gait Training, Transfer Techniques, Correct Positioning, Safety Issues Teaching Recipient: Patient Teaching Methods: Demonstration, Discussion Response to Teaching: Reinforcement Needed Time/GCodes Time In: 1140 Time Out: 1155 Total Billed Treatment Time: 15 Total Billed Treatment 1 visit FA LIBIA RAUSCH PT Aug 09, 2020 13:10
--- NOTE | 2020-08-09 13:54 | Occupational Ther Daily Note ---
OT Current Status-Daily Note Subjective Pt agreeable to OT tx, states she is hoping to discharge home tomorrow. Mental Status/Objective Attachments: Oxygen, Telemetry ADL-Treatment Therapy Code Descriptions/Definitions Functional [place] Measure: 0=Not Assessed/NA 4=Minimal Assistance 1=Total Assistance 5=Supervision or Setup 2=Maximal Assistance 6=Modified [place] 3=Moderate Assistance 7=Complete IndependenceSCALE: Activities may be completed with or without assistive devices. 1-Pcxgbhweap-dfvnyew completes the activity by him/herself with no assistance from a helper. 5-Set-up or Clean-up Assistance-helper sets up or cleans up; patient completes activity. [place] assists only prior to or following the activity. 4-Supervision or Touching Assistance-helper provides verbal cues and/or touching/steadying and/or contact guard assistance as patient completes activity. Assistance may be provided throughout the activity or intermittently. 3-Partial/Moderate Assistance-helper does LESS THAN HALF the effort. [place] lifts, holds or supports trunk or limbs, but provides less than half the effort. 2-Substantial/Maximal Assistance-helper does MORE THAN HALF the effort. [place] lifts or holds trunk or limbs and provides more than half the effort. 0-Mumzmtntz-oimhlc does ALL the effort. Patient does none of the effort to complete the activity. Or, the assistance of 2 or more helpers is required for the patient to complete the activity. If activity was not attempted, code reason: 7-Patient Refused. 9-Not Applicable-not attempted and the patient did not perform the activity be fore the current illness, exacerbation or injury. 10-Not Attempted due to Environmental Limitations-(lack of equipment, weather restraints, etc.). 88-Not Attempted due to Medical Conditions or Safety Concerns. Eating (QC): 6 (Pt reports independent with lunch) Shower/Bathe Self (QC): 4 (SBA, pt able to wash/dry all parts. Sponge bath) Lower Body Dressing (QC): 4 (SBA, pt able to doff/don brief in standing) On/Off Footwear: 6 (IND, doffed/donned gripper socks seated.) Other Treatment Pt seated in recliner, agreeable to ADL tx. Pt completed sponge bath, changed her hospital gown, brief, and socks. SBA during stands, no LOB noted. Pt able to independently doff/don socks, and able to change gown independently. OT educated pt on keeping track of the O2 line as she is donning pants so she doesn't get tangled up in cord, pt verbalized and demo'd understanding. Pt states she feels better after getting cleaned up. Post OT Tx, pt seated in recliner, call light in reach and all needs met. Education OT Patient Education: Correct positioning, Modified ADL techniques, Progress toward Goal/Update tx plan, Purpose of tx/functional activities Teaching Recipient: Patient Teaching Methods: Discussion Response to Teaching: Verbalize Understanding OT Short Term Goals Short Term Goals Upper body dressin Lower body dressin Putting on/taking off footwear: 5 OT Mcfp Goals Mcfp Goals Time Frame: Aug 14, 2020 Eating (QC): 6 Oral Hygiene (QC): 6 Toileting Hygiene (QC): 6 Shower/Bathe Self (QC): 6 Upper Body Dressing (QC): 6 Lower Body Dressing (QC): 6 On/Off Footwear (QC): 6 Additional Goals: 1-Demonstrate ADL Tasks, 2-Verbalize Understanding, 3- ImproveStrength/Chip 1=Demonstrate adherence to instructed precautions during ADL tasks. 2=Patient will verbalize/demonstrate understanding of assistive devices/modifications for ADL. 3=Patient will improve strength/tolerance for activity to enable patient to perform ADL's. OT Education/Plan Problem List/Assessment Assessment: Decreased Activ Tolerance, Decreased UE Strength, Impaired I ADL's, Impaired Self-Care Skills Discharge Recommendations Plan/Recommendations: Continue POC Treatment Plan/Plan of Care Patient would benefit from OT for education, treatment and training to promote independence in ADL's, mobility, safety and/or upper extremity function for ADL's. Plan of Care: ADL Retraining, Functional Mobility, UE Funct Exercise/Act Treatment Duration: Aug 14, 2020 Frequency: 5 times per week Estimated Hrs Per Day: .25 hour per day Agreement: Yes Rehab Potential: Fair Time/GCodes Start Time: 13:04 Stop Time: 13:20 Total Time Billed (hr/min): 16 Billed Treatment Time 1, ADL JASS JC OT Aug 09, 2020 13:54
[2020-08-09 16:00] VITALS: BP 122/68
[2020-08-09] MEDS: RIVAROXABAN 15 MG TABLET (XARELTO) PO SCH (17:57)
[2020-08-09 20:00] VITALS: BP 121/75
[2020-08-09] MEDS ORDERED: PHENYLEPHRINE 0.25% NASAL SPR (NEO-SYNEPHRINE) 15 ML NS ONE (20:38)
--- NOTE | 2020-08-09 20:42 | Progress Note ---
Subjective Date Seen by a Provider: Aug 09, 2020 Time Seen by a Provider: 11:15 Subjective/Events-last exam Pt doing pretty well Had a little bit of a nose bleed since she has been wearing oxygen and it is humidified Pt wants to go home soon so will do a home O2 evaluation, place her on Ambien of 5 mg and discharge is planned for home. Insisted on restarting Ambien although we talked about how confused it made her but she said she had pneumonia and that was what confused her Review of Systems General: Fatigue Objective Exam Last Set of Vital Signs Vital Signs Date Time Temp Pulse Resp B/P (MAP) Pulse Ox O2 Delivery O2 Flow Rate FiO2 08/09/20 20:00 35.5 100 20 121/75 (90) 98 Nasal Cannula 5.00 Capillary Refill : Less Than 3 SecondsLess Than 3 Seconds I&O Intake and Output 08/09/20 00:00 Intake Total 1470 ml Output Total 800 ml Balance 670 ml Intake Oral 1470 ml Output Urine Total 800 ml # Voids 2 # Bowel Movements 1 General: Alert, Oriented X3, Cooperative, No Acute Distress Lungs: Clear to Auscultation Heart: Regular Rate Neuro: Normal Gait Psych/Mental Status: Mental Status NL Assessment/Plan Assessment/Plan Assess & Plan/Chief Complaint Assessment: NSTEMI s/p intervention s/p septic shock due to PNA Hypoxia Elevated wbc Chronic UTI Epistaxis Plan: Swing bed PT OT 08/09/20: Nosebleed monitoring O2 evaluation Ambien monitor for confusion Diagnosis/Problems Diagnosis/Problems (1) Septic shock (2) Pneumonia (3) Non-STEMI (non-ST elevated myocardial infarction) Status: Acute (4) CAD (coronary artery disease) Status: Chronic (5) Paroxysmal atrial fibrillation Status: Chronic Clinical Quality Measures DVT/VTE Risk/Contraindication: Risk Factor Score Per Nursin GORDO OVERTON DO Aug 09, 2020 20:42
[2020-08-09] MEDS: PHENYLEPHRINE 0.25% NASAL SPR (NEO-SYNEPHRINE) 15 ML NS PRN (20:51)
[2020-08-09] MEDS ORDERED: ZOLPIDEM 5 MG (AMBIEN) TAB PO SCH (21:00)
--- NOTE | 2020-08-09 21:01 | NUR ---
2038-PT HAVING NOSE BLEED-SMALL AMOUNT OF BLEEDING NOTED FROM THE LEFT NOSTRIL. PT STATES THAT SHE HAS HAD NOSE BLEEDS A COUPLE TIME TODAY. THIS RN CALLED DR. MONTGOMERY TO INFORM HER, ORDER RECEIVED. THIS RN WAS THEN INFORMED THAT I NEEDED TO CONTACT DR. OVERTON SHE IS SEEING THIS PT SINCE B STATUS. 2045-THIS RN CONTACTED DR. OVERTON THIS RN WAS INFORMED TO CONTACT ON THIS ISSUE. 2050-PRN NEOSYNEPHRINE NASAL SPRAY ADMINISTERED-SEE OCT 2056-PT NOSE NO LONGER BLEEDING. 2057-THIS RN CALLED DR. MENDEZ TO INFORM HIM OF THE PT HAVING NOSE BLEEDS, PT BEING ON ASA, XARELTO, AND PLAVIX, AND DISCUSSED WITH DR. MENDEZ WHEN THE COAGULATION LABS WHERE DONE. THIS RN ASKED IF DR. MENDEZ IF HE WOULD LIKE TO RECHECK COAGULATION LABS; THIS RN WAS INFORMED THAT "THEY WONT BE ACCURATE WITH THE PT BEING ON XARELTO. WE CAN CHECK CBC & CMP IN THE MORNING."
--- NOTE | 2020-08-09 22:00 | NUR ---
2200-pt requesting her sleeping medication 2201-prn Ambien given 0-pt resting in bed, eyes closed, respirations even not labored, no distress noted.
[2020-08-09 22:02] VITALS: BP 124/72
--- NOTE | 2020-08-09 22:47 | NUR ---
RT NOTIFIED OF HOME O2 QUALIFICATION STUDY THAT WAS ORDERED BY DR. OVERTON
[2020-08-10 00:37] VITALS: BP 114/68
[2020-08-10] MEDS: PHENYLEPHRINE 0.25% NASAL SPR (NEO-SYNEPHRINE) 15 ML NS PRN ×2 (02:00→10:36)
--- NOTE | 2020-08-10 02:53 | NUR ---
0200 pt bed alarm going off, pt sitting on the side of the bed pt had small amount of blood coming from the left nostril again, prn neosynephrine administered, pressure applied for 3 minutes, bleeding stopped, pt requested ice pack, ice pack provided pt applied ice pack to the bridge of the nose for 1 minute. pt up to the restroom once bleeding stopped. pt went from the restroom, back to bed as she was sitting on the side of the bed, pt partially closed her hands, put them up to her eyes as if she was making eye glasses, this rn asked pt what she was doing, she replied "looking out the window". this rn asked this pt where she is at pt stated "In someone's kitchen"; when this rn asked this pt who the president is she replied, "[employer]." when this rn asked this pat what year it is she replied 2020. pt is confused.
[2020-08-10 03:06] VITALS: BP 114/81
--- NOTE | 2020-08-10 03:38 | NUR ---
this rn notified dr. marroquin of pt confused state & that the pt has had another nose bleed. no new orders at this time
--- NOTE | 2020-08-10 05:05 | NUR ---
pt continues to be confused, pt able to drop the bed side rails on her own & get out of bed, pt stated she was bored this rn provided pt so wash clothes to fold, pt states she would gladly help fold some laundry. redirection attempts have failed, this rn put at telesitter in the room
[2020-08-10 05:44] LABS: BASOPHILS % (AUTO) 0 % (0-10); EOSINOPHILS # (AUTO) 0.2 10^3/uL (0.0-0.3); EOSINOPHILS % (AUTO) 1 % (0-10); HEMATOCRIT 33 % (35-52); HEMOGLOBIN 10.1 g/dL (11.5-16.0); LYMPHOCYTES # (AUTO) 1.4 10^3/uL (1.0-4.0); LYMPHOCYTES % (AUTO) 10 % (12-44); MEAN CORPUSCULAR HEMOGLOBIN 30 pg (25-34); MEAN CORPUSCULAR HGB CONC 31 g/dL (32-36); MEAN CORPUSCULAR VOLUME 97 fL (80-99); MEAN PLATELET VOLUME 10.5 fL (9.0-12.2); MONOCYTES # (AUTO) 1.8 10^3/uL (0.0-1.0); MONOCYTES % (AUTO) 13 % (0-12); NEUTROPHILS # (AUTO) 10.5 10^3/uL (1.8-7.8); NEUTROPHILS % (AUTO) 74 % (42-75); PLATELET COUNT 337 10^3/uL (130-400); WHITE BLOOD COUNT 14.1 10^3/uL (4.3-11.0)
[2020-08-10 06:15] LABS: ALBUMIN 3.2 GM/DL (3.2-4.5); BILIRUBIN,TOTAL 1.1 MG/DL (0.1-1.0); CALCIUM 8.3 MG/DL (8.5-10.1); CREATININE SERUM 1.1 MG/DL (0.60-1.30); POTASSIUM 3.7 MMOL/L (3.6-5.0); TOTAL PROTEIN 5.5 GM/DL (6.4-8.2)
[2020-08-10 06:35] LABS: BAND NEUTROPHILS 2 %; ELLIPT/OVALOCYTES SLIGHT; EOSINOPHILS % (MANUAL) 1 %; LYMPHOCYTES % (MANUAL) 10 %; MONOCYTES % (MANUAL) 6 %; NEUTROPHILS % (MANUAL) 81 %; POLYCHROMASIA SLIGHT
[2020-08-10 07:30] VITALS: BP 96/67
--- NOTE | 2020-08-10 07:47 | Cardiology Progress Note ---
Cardiology Progess Note Progress Date Seen by Provider: Aug 10, 2020 Time Seen by Provider: 07:37 I have seen and examined the patient. She says that she is feeling well and is excited that she will be going home today. She denies having any nausea, vomiting, headache, chest pain, palpitations, diarrhea, or constipation. She has been having some nose bleeds and is tired of her nasal cannula because she does not feel that the supplemental O2 is doing anything. Focused Exam Respiratory: Chest Non Tender, Lungs Clear, Normal Breath Sounds, No Accessory Muscle Use, No Respiratory Distress Cardiovascular: No Edema, Irregularly Irregular, Tachycardia Peripheral Pulses: 2+ Radial Pulses (R), 2+ Radial Pulses (L) Skin: normal color, warm/dry A/P-Cardiology Assessment/Plan Plan Pneumonia, resolving, managed by primary care physician Atrial fibrillation with rapid ventricular response, slightly better heart rate at this time, tolerating current medication well. NSTEMI and post-infarction angina, no active chest pain was reported at this time. Continue to monitor Coronary artery disease with history of PTCA and stents to LAD in 2009 with cardiac catheterization 09/20/2013 revealing patent stents in the proximal and mid LAD; cath in 09/2018, after NSTEMI, showed distal edge stenosis in LAD stent that was treated with Stephania 2.25 x 8 mm. Cath on 08/01/20 showed 99% distal edge restenosis in a long LAD stented segment. This was treated with balloon angioplasty with no significant residual stenosis. Mild CAD elsewhere. LVEDP 28 mmHg Valvular heart disease followed at [facility]: h/o severe mitral regurgitation treated with percutaneous transcatheter repair of the mitral valve with Dr. Hines and David at in July 2019; repeat echo done in December 2019 showing moderate stenosis, valve area 2.5 cm with severe regurgitation. Ejection fraction 35-40 percent. PA pressure 45-50 mmHg H/O Atrial fibrillation with rapid ventricular rate, status post EROS with successful cardioversion August 2017. Intolerant to amiodarone secondary to elevated LFTs and increased fatigue. H/o intolerance to sotalol due to QT prolongation. ILR in place. H/o Multaq tolerance only on once-a-day dosing. Currently in a-fib with controlled rate, per EKG of Jul 31, 2020. [id number] score of 5, patient is maintained on Xarelto. Hypertension,tolerating current medication well. Continue to monitor Hyperlipidemia, continue to monitor lipids History of elevated LFTs while on amiodarone and Lipitor. Both medications were discontinued. Has tolerated Crestor, according to history Mild bilateral carotid artery stenosis. Last ultrasound was done in July 03 019, continue to monitor as outpatient. Osteoporosis. 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 Hernandez. There is no significant drop in her hemoglobin. Probably the combination of multiple blood thinners and continuous oxygen are causing the nosebleed. I will stop the aspirin and co ntinue on Plavix and Xarelto and try to wean her off the oxygen if possible From cardiology standpoint her heart rate is better controlled and she is tolerating the medication well I am okay with discharging her and arranging for follow-up as an outpatient Clinical Quality Measures DVT/VTE Risk/Contraindication: Risk Factor Score Per Nursin RUSTY EASLEY,MED STUDENT Aug 10, 2020 07:47 VERÓNICA MENDEZ MD Aug 10, 2020 09:30
[2020-08-10] MEDS: meTOprolol TARTRATE 50 MG (LOPRESSOR) TAB PO SCH ×2 (08:46→20:58)
[2020-08-10] MEDS: CLOPIDOGREL 75 MG (PLAVIX) TABLET PO SCH (09:19)
[2020-08-10] MEDS: DRONEDARONE TABLET 400 MG TABLET PO SCH ×2 (09:19→20:58)
[2020-08-10] MEDS: FUROSEMIDE 40 MG (LASIX) TAB PO SCH (09:23)
--- NOTE | 2020-08-10 10:10 | Physical Therapy Daily Note ---
PT Daily Note-Current Subjective Patient agrees to PT. Currently on RA. Mental Status Patient Orientation: Normal For Age Transfers SCALE: Activities may be completed with or without assistive devices. 7-Nrutyvlzno-aymbkse completes the activity by him/herself with no assistance fr om a helper. 5-Set-up or Clean-up Assistance-helper sets up or cleans up; patient completes activity. [place] assists only prior to or following the activity. 4-Supervision or Touching Assistance-helper provides verbal cues and/or touching/steadying and/or contact guard assistance as patient completes activity. Assistance may be provided throughout the activity or intermittently. 3-Partial/Moderate Assistance-helper does LESS THAN HALF the effort. [place] lifts, holds or supports trunk or limbs, but provides less than half the effort. 2-Substantial/Maximal Assistance-helper does MORE THAN HALF the effort. [place] lifts or holds trunk or limbs and provides more than half the effort. 0-Njpgjcmyu-uhmvoc does ALL the effort. Patient does none of the effort to complete the activity. Or, the assistance of 2 or more helpers is required for the patient to complete the activity. If activity was not attempted, code reason: 7-Patient Refused. 9-Not Applicable-not attempted and the patient did not perform the activity before the current illness, exacerbation or injury. 10-Not Attempted due to Environmental Limitations-(lack of equipment, weather restraints, etc.). 88-Not Attempted due to Medical Conditions or Safety Concerns. Sit to Lying (QC): 5 Lying to Sitting/Side of Bed(Q: 5 Sit to Stand (QC): 5 Chair/Ksc-jq-Oqyak Xfer(QC): 5 Gait Training Does the Patient Walk?: Yes Distance: 250' x 1/80' x 2 Walk 10 feet (QC): 4 Walk 50 ft with 2 Turns(QC): 4 Walk 150 ft (QC): 4 Gait Assistive Device: FWW Stair Training Stair Training: Handrails/: 2 handrails #of Steps: 4 1 Step (curb) (QC): 4 4 Steps (QC): 4 12 Steps (QC): 88 Stairs: Pattern: Step to Assessment Patient fatigues with minimal activity and requires recovery periods, however, much improved gross motor skills. Goals addressed but not attained. PT Assisted Goals Assisted Goals PT Assisted Goals Time Frame: Aug 26, 2020 Roll Left & Right (QC): 6 Sit to Lying (QC): 6 Lying-Sitting on Side/Bed(QC): 6 Sit to Stand (QC): 6 Chair/Kwn-cy-Vkljv Xfer(QC): 6 Toilet Transfer (QC): 6 Car Transfer (QC): 6 Does the Patient Walk: Yes Walk 10 feet (QC): 6 Walk 50ft with 2 Turns (QC): 6 Walk 150 ft (QC): 6 Walking 10ft on Uneven Surface: 6 1 Step (curb) (QC): 6 4 Steps (QC): 6 12 Steps (QC): 88 Picking up an Object (QC): 6 Does the Pt use WC or Scooter?: No Wheel 50 feet with 2 turns (QC: 9 Wheel 150 feet: 9 PT Plan Treatment/Plan Treatment Plan: Discontinue PT Treatment Plan: Bed Mobility, Education, Functional Activity Chip, Functional Strength, Gait, Safety, Therapeutic Exercise, Transfers Treatment Duration: Aug 26, 2020 Frequency: 6 times per week Estimated Hrs Per Day: .5 hour per day Patient and/or Family Agrees t: Yes Time/GCodes Time In: 915 Time Out: 930 Total Billed Treatment Time: 15 Total Billed Treatment 1 visit FA 15 min GIANNA LIN PT Aug 10, 2020 10:10
--- NOTE | 2020-08-10 10:11 | Therapy Team Discharge Summary ---
Therapy Discharge Summary Discharge Recommendations Date of Discharge Physical Therapy Patient fatigues with minimal activity and requires recovery periods, however, much improved gross motor skills. Goals addressed but not attained. Patient to dismiss to home with family and home health. Patient encouraged to perform exercises and ambulate PRN with FWW. Patient observed up in room independently. Occupational Therapy Decreased Activ Tolerance, Decreased UE Strength, Impaired I ADL's, Impaired Self-Care Skills PT Liquor Clerk Goals Jail Goals PT Jail Goals Time Frame: Aug 26, 2020 Roll Left to Right (QC): 6 Sit to Lying (QC): 6 Lying-Sitting on Side/Bed(QC): 6 Sit to Stand (QC): 6 Chair/Buz-wv-Cqpik Xfer(QC): 6 Car Transfer (QC): 6 Does the Patient Walk: Yes Walk 10 feet (QC): 6 Walk 10ft-Uneven Surface(QC): 6 Walk 50ft with 2 Turns (QC): 6 Walk 150 ft (QC): 6 Does the Pt use WC or Scooter?: No Wheel 50 feet with 2 turns (QC: 9 1 Step (curb) (QC): 6 4 Steps (QC): 6 12 Steps (QC): 88 Picking up an Object (QC): 6 OT Jail Goals Liquor Clerk Goals Time Frame: Aug 14, 2020 Eating (QC): 6 Oral Hygiene (QC): 6 Shower/Bathe Self (QC): 6 Upper Body Dressing (QC): 6 Lower Body Dressing (QC): 6 On/Off Footwear (QC): 6 Toileting Hygiene (QC): 6 Toilet/Commode Transfer (QC): 6 Additional Goals: 1-Demonstrate ADL Tasks, 2-Verbalize Understanding, 3- ImproveStrength/Chip 1=Demonstrate adherence to instructed precautions during ADL tasks. 2=Patient will verbalize/demonstrate understanding of assistive devices/modifications for ADL. 3=Patient will improve strength/tolerance for activity to enable patient to perform ADL's. GIANNA LIN PT Aug 10, 2020 10:11
[2020-08-10 11:15] VITALS: BP 109/78
--- NOTE | 2020-08-10 11:19 | NUR ---
"RD ASSESSMENT PMHx: afib; CAD; HTN; GERD; osteoporosis; PT INTERACTION: Pt was awake and pleasant during nutrition follow-up. Pt states she has been eating better, though still doesn't have much of an appetite. Note avg PO intake <25% x2d, per chart review. Pt states no issues with nausea, vomiting, constipation, or diarrhea since last assessment. Note last BM was 08/08, and pt not currently on bowel regimen per chart review. ABNORMAL NUTRITION-RELATED LAB VALUES LOW: Ca 8.3; Pro 5.5; HIGH: BUN 39; bili 1.1; Est. kcal needs: 7329-3647 kcal | 20-25 kcal/kg Est. Pro needs: 59-73 g Pro | 0.8-1.0 g Pro/kg PES STATEMENT: Inadequate oral intake (NI-2.1) related to loss of appetite as evidenced by pt interview, and avg PO intake <25% x2d. INTERVENTION: Continue with current diet order of CHO 60g/m 1snack diet. Continue with current supplementation of Glucerna (leonard) with meals TID, for increased kcal intake. Provides 220 kcal and 10 g Pro per serving. Encouraged pt to eat when able. Will continue to follow and reassess as pt needs, intake, and status change. Jacquelyn ZAPATA, MS RD LD [phone] cell"
--- NOTE | 2020-08-10 11:36 | NUR ---
RT NOTIFIED OF HOME O2 ORDER
--- NOTE | 2020-08-10 12:41 | Progress Note ---
Subjective Date Seen by a Provider: Aug 10, 2020 Time Seen by a Provider: 12:30 Subjective/Events-last exam Pt had issues with Ambien again so I stopped it Remeron will be tried Wants to go home but still with bloody nose and bleeding from lips Xarelto will be held and ASA already stopped after conferring with Dr Medina Review of Systems General: Fatigue, Malaise Objective Exam Last Set of Vital Signs Vital Signs Date Time Temp Pulse Resp B/P (MAP) Pulse Ox O2 Delivery O2 Flow Rate FiO2 08/10/20 12:32 109 08/10/20 11:15 36.5 20 109/78 (88) 96 Room Air 08/10/20 08:00 2.00 Capillary Refill : Less Than 3 SecondsLess Than 3 Seconds I&O Intake and Output 08/10/20 00:00 Intake Total 2045 ml Balance 2045 ml Intake Oral 2045 ml # Voids 9 General: Alert, Oriented X3, Cooperative, No Acute Distress Lungs: Clear to Auscultation Heart: Regular Rate Neuro: Strength at 5/5 X4 Ext Results Lab Laboratory Tests 08/10/20 05:20: White Blood Count 14.1H, Red Blood Count 3.39L, Hemoglobin 10.1L, Hematocrit 33L , Mean Corpuscular Volume 97, Mean Corpuscular Hemoglobin 30, Mean Corpuscular Hemoglobin Concent 31L, Red Cell Distribution Width 13.8, Platelet Count 337, Mean Platelet Volume 10.5, Immature Granulocyte % (Auto) 1, Neutrophils (%) (Auto) 74, Lymphocytes (%) (Auto) 10L, Monocytes (%) (Auto) 13H, Eosinophils (%) (Auto) 1, Basophils (%) (Auto) 0, Neutrophils # (Auto) 10.5H, Lymphocytes # (Auto) 1.4, Monocytes # (Auto) 1.8H, Eosinophils # (Auto) 0.2, Basophils # (Auto) 0.0, Immature Granulocyte # (Auto) 0.2H, Neutrophils % (Manual) 81, Lymphocytes % (Manual) 10, Monocytes % (Manual) 6, Eosinophils % (Manual) 1, Band Neutrophils 2, Polychromasia SLIGHT, Elliptocytes SLIGHT 08/10/20 05:32: Sodium Level 142, Potassium Level 3.7, Chloride Level 107, Carbon Dioxide Level 22, Anion Gap 13, Blood Urea Nitrogen 39H, Creatinine 1.10, Estimat Glomerular Filtration Rate 47, BUN/Creatinine Ratio 35, Glucose Level 98, Calcium Level 8.3L, Corrected Calcium 8.9, Total Bilirubin 1.1H, Aspartate Amino Transf (AST/SGOT) 30, Alanine Aminotransferase (ALT/SGPT) 37, Alkaline Phosphatase 120, Total Protein 5.5L, Albumin 3.2 Assessment/Plan Assessment/Plan Assess & Plan/Chief Complaint Assessment: NSTEMI s/p intervention s/p septic shock due to PNA Hypoxia Elevated wbc Chronic UTI Epistaxis Plan: Swing bed PT OT 08/09/20: Nosebleed monitoring O2 evaluation Ambien monitor for confusion 08/10/20: DC Ambien DC Xarelto DC ASA Plavix must be maintained due to recent stent Dr Peña consult Diagnosis/Problems Diagnosis/Problems (1) Septic shock (2) Pneumonia (3) Non-STEMI (non-ST elevated myocardial infarction) Status: Acute (4) CAD (coronary artery disease) Status: Chronic (5) Paroxysmal atrial fibrillation Status: Chronic Clinical Quality Measures DVT/VTE Risk/Contraindication: Risk Factor Score Per Nursin GORDO OVERTON DO Aug 10, 2020 12:41
[2020-08-10] MEDS ORDERED: SALINE NASAL SPRAY (OCEAN) 45 ML BTL PRN (13:00)
--- NOTE | 2020-08-10 13:55 | NUR ---
OCEAN NASAL SPRAY PLACED AT BEDSIDE PER DR WHITT'S REQUEST, PT GIVEN INSTRUCTIONS FOR PROPER USE.
--- NOTE | 2020-08-10 14:17 | Occupational Ther Daily Note ---
OT Current Status-Daily Note Subjective Pt seated in recliner, states she has had more bleeding from her nose and blood around lips. Pt indicates she does not have the energy to complete any exercises today, but agreeable to ADLs. ADL-Treatment Therapy Code Descriptions/Definitions Functional [place] Measure: 0=Not Assessed/NA 4=Minimal Assistance 1=Total Assistance 5=Supervision or Setup 2=Maximal Assistance 6=Modified [place] 3=Moderate Assistance 7=Complete IndependenceSCALE: Activities may be completed with or without assistive devices. 1-Kezarijaya-ahqfyoh completes the activity by him/herself with no assistance from a helper. 5-Set-up or Clean-up Assistance-helper sets up or cleans up; patient completes activity. [place] assists only prior to or following the activity. 4-Supervision or Touching Assistance-helper provides verbal cues and/or touchi ng/steadying and/or contact guard assistance as patient completes activity. Assistance may be provided throughout the activity or intermittently. 3-Partial/Moderate Assistance-helper does LESS THAN HALF the effort. [place] lifts, holds or supports trunk or limbs, but provides less than half the effort. 2-Substantial/Maximal Assistance-helper does MORE THAN HALF the effort. [place] lifts or holds trunk or limbs and provides more than half the effort. 7-Ydhdjceuh-eundlb does ALL the effort. Patient does none of the effort to complete the activity. Or, the assistance of 2 or more helpers is required for the patient to complete the activity. If activity was not attempted, code reason: 7-Patient Refused. 9-Not Applicable-not attempted and the patient did not perform the activity before the current illness, exacerbation or injury. 10-Not Attempted due to Environmental Limitations-(lack of equipment, weather restraints, etc.). 88-Not Attempted due to Medical Conditions or Safety Concerns. Eating (QC): 6 (Pt indicates independent with lunch.) Oral Hygiene (QC): 5 (Pt completed independently after set up at tray table.) Other Treatment Pt seated in recliner, states she is tired today. Pt discussed how she had a sleeping pill last night which apparently caused her issues overnight, she does not remember having any problems and feels like she slept well. Pt refused UE exercises due to being too tired. Pt agreeable to ADL tx. After set up at tray table, pt is able to complete oral care, hair brushing, and face washing independently, rest breaks between. Pt's nurse provided pt with nasal spray, pt able to use nasal spray per nurse instruction independently. Pt declined further activities due to being tired. Post OT tx, pt seated in recliner, call light in reach and all needs met, telesitter present. Education OT Patient Education: Correct positioning, Energy conservation, Modified ADL techniques, Progress toward Goal/Update tx plan, Purpose of tx/functional activities Teaching Recipient: Patient Teaching Methods: Discussion Response to Teaching: Verbalize Understanding OT Short Term Goals Short Term Goals Upper body dressin Lower body dressin Putting on/taking off footwear: 5 OT Usp Goals Usp Goals Time Frame: Aug 14, 2020 Eating (QC): 6 Oral Hygiene (QC): 6 Toileting Hygiene (QC): 6 Shower/Bathe Self (QC): 6 Upper Body Dressing (QC): 6 Lower Body Dressing (QC): 6 On/Off Footwear (QC): 6 Additional Goals: 1-Demonstrate ADL Tasks, 2-Verbalize Understanding, 3- ImproveStrength/Chip 1=Demonstrate adherence to instructed precautions during ADL tasks. 2=Patient will verbalize/demonstrate understanding of assistive devices/modifications for ADL. 3=Patient will improve strength/tolerance for activity to enable patient to perform ADL's. OT Education/Plan Problem List/Assessment Assessment: Decreased Activ Tolerance, Decreased UE Strength, Impaired I ADL's Discharge Recommendations Plan/Recommendations: Continue POC Treatment Plan/Plan of Care Patient would benefit from OT for education, treatment and training to promote independence in ADL's, mobility, safety and/or upper extremity function for ADL's. Plan of Care: ADL Retraining, Functional Mobility, UE Funct Exercise/Act Treatment Duration: Aug 14, 2020 Frequency: 5 times per week Estimated Hrs Per Day: .25 hour per day Agreement: Yes Rehab Potential: Fair Time/GCodes Start Time: 13:45 Stop Time: 14:00 Total Time Billed (hr/min): 15 Billed Treatment Time 1, ADL JASS JC OT Aug 10, 2020 14:17
--- NOTE | 2020-08-10 15:16 | NUR ---
DOROTHY (DAUGHTER) CALLED, UP DATES GIVEN AT HER REQUEST. ALL QUESTIONS ANSWERED, SHE IS AWARE OF ANTICIPATED DISCHARGE TOMORROW
[2020-08-10 17:23] VITALS: BP 123/65
[2020-08-10] MEDS ORDERED: MIRTAZAPINE 15 MG (REMERON) TAB PO SCH (21:00)
[2020-08-11 05:50] LABS: BASOPHILS # (AUTO) 0.1 10^3/uL (0.0-0.1); BASOPHILS % (AUTO) 0 % (0-10); EOSINOPHILS # (AUTO) 0.2 10^3/uL (0.0-0.3); EOSINOPHILS % (AUTO) 2 % (0-10); HEMATOCRIT 31 % (35-52); HEMOGLOBIN 9.9 g/dL (11.5-16.0); LYMPHOCYTES # (AUTO) 1.9 10^3/uL (1.0-4.0); LYMPHOCYTES % (AUTO) 13 % (12-44); MEAN CORPUSCULAR HEMOGLOBIN 30 pg (25-34); MEAN CORPUSCULAR HGB CONC 32 g/dL (32-36); MEAN CORPUSCULAR VOLUME 94 fL (80-99); MEAN PLATELET VOLUME 10.4 fL (9.0-12.2); MONOCYTES # (AUTO) 2.1 10^3/uL (0.0-1.0); MONOCYTES % (AUTO) 15 % (0-12); NEUTROPHILS # (AUTO) 9.4 10^3/uL (1.8-7.8); NEUTROPHILS % (AUTO) 68 % (42-75); PLATELET COUNT 362 10^3/uL (130-400); WHITE BLOOD COUNT 13.8 10^3/uL (4.3-11.0)
[2020-08-11 06:00] VITALS: BP 113/73
[2020-08-11 06:03] LABS: POTASSIUM 3.1 MMOL/L (3.6-5.0)
[2020-08-11 06:04] LABS: CALCIUM 8.2 MG/DL (8.5-10.1)
[2020-08-11 06:06] LABS: TOTAL PROTEIN 5.5 GM/DL (6.4-8.2)
[2020-08-11 06:07] LABS: BILIRUBIN,TOTAL 0.9 MG/DL (0.1-1.0)
[2020-08-11 06:09] LABS: CREATININE SERUM 1.2 MG/DL (0.60-1.30)
--- NOTE | 2020-08-11 06:29 | Progress Note ---
Standard Progress Note Progress Notes/Assess & Plan Date Seen by a Provider: Aug 11, 2020 Time Seen by a Provider: 06:15 Progress/Assessment & Plan ENT-Tomás Left anterior nosebleed cauterized with silver nitrate ptient thiago well keep nose moist with ocean nasal spray and ayr nasal saline gel please call if further problems with the nosebleeds thanks-full note dictated Final Diagnosis recurrent left anteiror epistaxis anticoagulated ROSITA WHITT MD Aug 11, 2020 06:29
--- NOTE | 2020-08-11 07:29 | NUR ---
RT LEAD NOTIFIED OF HOME O2 ORDER
--- NOTE | 2020-08-11 07:40 | NUR ---
pt SpO2 is 84% while resting before walk study even started. pt placed on 3L at this time with adequate sats Addendum: 08/11/20 at 0741 by WALTER FARLEY RT Amended: Links added.
[2020-08-11 08:12] VITALS: BP 109/69
[2020-08-11] MEDS: FUROSEMIDE 40 MG (LASIX) TAB PO SCH (08:40)
[2020-08-11] MEDS: meTOprolol TARTRATE 50 MG (LOPRESSOR) TAB PO SCH (08:40)
[2020-08-11] MEDS: DRONEDARONE TABLET 400 MG TABLET PO SCH (08:40)
[2020-08-11] MEDS: CLOPIDOGREL 75 MG (PLAVIX) TABLET PO SCH (08:40)
--- NOTE | 2020-08-11 09:27 | Physical Therapy Daily Note ---
PT Daily Note-Current Subjective Patient did not dismiss to home yesterday. Agrees to PT. Patient appears lethargic with no medication issued per RN report to cause lethargy. Mental Status Patient Orientation: Confused Attachments: Oxygen Transfers SCALE: Activities may be completed with or without assistive devices. 9-Aifbeztvzw-zlxgnmw completes the activity by him/herself with no assistance from a helper. 5-Set-up or Clean-up Assistance-helper sets up or cleans up; patient completes activity. [place] assists only prior to or following the activity. 4-Supervision or Touching Assistance-helper provides verbal cues and/or touching /steadying and/or contact guard assistance as patient completes activity. Assistance may be provided throughout the activity or intermittently. 3-Partial/Moderate Assistance-helper does LESS THAN HALF the effort. [place] lifts, holds or supports trunk or limbs, but provides less than half the effort. 2-Substantial/Maximal Assistance-helper does MORE THAN HALF the effort. [place] lifts or holds trunk or limbs and provides more than half the effort. 4-Favbbpxzb-tsjizj does ALL the effort. Patient does none of the effort to complete the activity. Or, the assistance of 2 or more helpers is required for the patient to complete the activity. If activity was not attempted, code reason: 7-Patient Refused. 9-Not Applicable-not attempted and the patient did not perform the activity before the current illness, exacerbation or injury. 10-Not Attempted due to Environmental Limitations-(lack of equipment, weather restraints, etc.). 88-Not Attempted due to Medical Conditions or Safety Concerns. Lying to Sitting/Side of Bed(Q: 4 Sit to Stand (QC): 4 Chair/Xqn-dr-Ltvtt Xfer(QC): 4 Gait Training Does the Patient Walk?: Yes Distance: 175' Walk 10 feet (QC): 4 Walk 50 ft with 2 Turns(QC): 4 Walk 150 ft (QC): 4 Gait Assistive Device: FWW functional gait sequence/O2 in place with SAO2 maintaining >90% Assessment Patient up in recliner with chair alarm activated. She is eating breakfast and appears to be more alert. PT to continue with POC until dismissal. PT Alf Goals Alf Goals PT Industrial Commercial Groundskeeper Goals Time Frame: Aug 26, 2020 Roll Left & Right (QC): 6 Sit to Lying (QC): 6 Lying-Sitting on Side/Bed(QC): 6 Sit to Stand (QC): 6 Chair/Rga-ck-Izrjp Xfer(QC): 6 Toilet Transfer (QC): 6 Car Transfer (QC): 6 Does the Patient Walk: Yes Walk 10 feet (QC): 6 Walk 50ft with 2 Turns (QC): 6 Walk 150 ft (QC): 6 Walking 10ft on Uneven Surface: 6 1 Step (curb) (QC): 6 4 Steps (QC): 6 12 Steps (QC): 88 Picking up an Object (QC): 6 Does the Pt use WC or Scooter?: No Wheel 50 feet with 2 turns (QC: 9 Wheel 150 feet: 9 PT Plan Treatment/Plan Treatment Plan: Continue Plan of Care Treatment Plan: Bed Mobility, Education, Functional Activity Chip, Functional Strength, Gait, Safety, Therapeutic Exercise, Transfers Treatment Duration: Aug 26, 2020 Frequency: 6 times per week Estimated Hrs Per Day: .5 hour per day Patient and/or Family Agrees t: Yes Time/GCodes Time In: 830 Time Out: 845 Total Billed Treatment Time: 15 Total Billed Treatment 1 visit FA 15 min GIANNA LIN PT Aug 11, 2020 09:27
[2020-08-11] MEDS ORDERED: SODI44SP2 (10:59)
[2020-08-11] MEDS ORDERED: PHEN15SP NS (10:59)
[2020-08-11] MEDS ORDERED: FURO40TA4 PO (10:59)
[2020-08-11] MEDS ORDERED: MIRT-47 PO (10:59)
[2020-08-11] MEDS ORDERED: DILT240C91 PO (10:59)
[2020-08-11] MEDS ORDERED: DRON400T2 PO (10:59)
--- NOTE | 2020-08-11 11:00 | D/C HH Face to Face Order ---
D/C Face to Face Orders Reconcile Patient Problems Problems Reviewed?: Yes Instructions for Patient Via [facility], Patient Instructions/FollowUp: Dr Hernandez 1 week Physician to follow Patient: Mary Discharge Diet for Home: No Restrictions Patient Problems: CAD s/p PNA New O2 dependence Patient Data-Allergies,Ht & Wt Patient Allergies: Coded Allergies: Penicillins (Unverified Allergy, Mild, 04/19/09) Height (Feet): 5 Height (Inches): 5.00 Weight (Pounds): 155 Weight (Ounces): 6.0 Home Health Need/Face to Face Date of Face to Face: Aug 11, 2020 Clinical Findings: Generalized weakness and fatigue, Instability, Muscle weakness, Shortness of breath, Unsteady gait I have seen Pt [id number]-[id number]: Yes Discharged To: Home Diagnosis/Conditions: CAD s/p PNA New O2 dependence Patient is Homebound due to: CognItive deficits, Pamela fall risk due to instabilty, Muscle weakness, Shortness of breath/distress Homebound Status Due to the above stated illness, injury or surgical procedure (medical condition or diagnosis) and associated clinical findings, the patient is homebound because of his/her inability to leave home except with aid of a supportive device and/or person AND leaving the home requires a considerable and taxing effort or is medically contraindicated. Pt req the following assistanc: Walker Home Health Nursing Orders Home Health Services Order: Nursing Services, Facility Designer-Evaluate & Treat, Physical Therapy-Evaluate & Treat Certify Stmt I certify that this patient is under my care and that I, a nurse practitioner or a physician; a assistant merchandise manager working with me, had a face to face encounter that - meets the physician face to face encounter requirements with this patient as dated. GORDO HERNANDEZ DO Aug 11, 2020 11:00
--- NOTE | 2020-08-11 11:02 | Discharge Summary ---
Diagnosis/Chief Complaint Date of Admission Aug 07, 2020 at 12:05 Date of Discharge Discharge Date: Aug 11, 2020 Discharge Diagnosis Assessment: NSTEMI s/p intervention s/p septic shock due to PNA Hypoxia Elevated wbc Chronic UTI Epistaxis Plan: Swing bed PT OT 08/09/20: Nosebleed monitoring O2 evaluation Ambien monitor for confusion 08/10/20: DC Ambien DC Xarelto DC ASA Plavix must be maintained due to recent stent Dr Peña consult 08/11/20: Stop Xarelto Discharge Summary Discharge Physical Examination Allergies: Coded Allergies: Penicillins (Unverified Allergy, Mild, 04/19/09) Vitals & I&Os Vital Signs Date Time Temp Pulse Resp B/P (MAP) Pulse Ox O2 Delivery O2 Flow Rate FiO2 08/11/20 12:20 36.7 95 20 114/61 100 Nasal Cannula 3.00 General Appearance: Alert, Oriented X3, Cooperative Respiratory: Clear to Auscultation Cardiovascular: Regular Rate Neuro: Normal Gait Psych/Mental Status: Mental Status NL Hospital Course Was the Problem List Reviewed?: Yes Short course on swing bed to recover from PNA after stent placed for NSTEMI. Patient remained DNR and was noted to have a significant decline since last seen in office. Xarelto caused severe bleeding in nose and mouth so that was stopped after conferring with Dr Medina and ASA stopped but Plavix maintained to protect stents. Overall guarded prognosis given advanced age and co-morbidities and overall decline. Labs (last 24 hrs) Laboratory Tests 08/08/20 06:15: White Blood Count 13.0H, Red Blood Count 3.47L, Hemoglobin 10.4L, Hematocrit 33L , Mean Corpuscular Volume 95, Mean Corpuscular Hemoglobin 30, Mean Corpuscular Hemoglobin Concent 32, Red Cell Distribution Width 13.5, Platelet Count 316, Mean Platelet Volume 10.2, Immature Granulocyte % (Auto) 1, Neutrophils (%) (Auto) 73, Lymphocytes (%) (Auto) 11L, Monocytes (%) (Auto) 12, Eosinophils (%) (Auto) 2, Basophils (%) (Auto) 0, Neutrophils # (Auto) 9.5H, Lymphocytes # (Auto) 1.5, Monocytes # (Auto) 1.6H, Eosinophils # (Auto) 0.2, Basophils # (Auto) 0.1, Immature Granulocyte # (Auto) 0.1, Sodium Level 140, Potassium Level 4.1, Chloride Level 107, Carbon Dioxide Level 24, Anion Gap 9, Blood Urea Nitrogen 35H, Creatinine 0.99, Estimat Glomerular Filtration Rate 53, BUN/Creatinine Ratio 35, Glucose Level 99, Calcium Level 7.9L, Corrected Calcium 8.7, Total Bilirubin 0.8, Aspartate Amino Transf (AST/SGOT) 33, Alanine Aminotransferase (ALT/SGPT) 36, Alkaline Phosphatase 108, Total Protein 5.1L, Albumin 3.0L 08/10/20 05:20: White Blood Count 14.1H, Red Blood Count 3.39L, Hemoglobin 10.1L, Hematocrit 33L , Mean Corpuscular Volume 97, Mean Corpuscular Hemoglobin 30, Mean Corpuscular Hemoglobin Concent 31L, Red Cell Distribution Width 13.8, Platelet Count 337, Mean Platelet Volume 10.5, Immature Granulocyte % (Auto) 1, Neutrophils (%) (Auto) 74, Lymphocytes (%) (Auto) 10L, Monocytes (%) (Auto) 13H, Eosinophils (%) (Auto) 1, Basophils (%) (Auto) 0, Neutrophils # (Auto) 10.5H, Lymphocytes # (Auto) 1.4, Monocytes # (Auto) 1.8H, Eosinophils # (Auto) 0.2, Basophils # (Auto) 0.0, Immature Granulocyte # (Auto) 0.2H, Neutrophils % (Manual) 81, L ymphocytes % (Manual) 10, Monocytes % (Manual) 6, Eosinophils % (Manual) 1, Band Neutrophils 2, Polychromasia SLIGHT, Elliptocytes SLIGHT, Iron Level 58 08/10/20 05:32: Sodium Level 142, Potassium Level 3.7, Chloride Level 107, Carbon Dioxide Level 22, Anion Gap 13, Blood Urea Nitrogen 39H, Creatinine 1.10, Estimat Glomerular Filtration Rate 47, BUN/Creatinine Ratio 35, Glucose Level 98, Calcium Level 8.3L, Corrected Calcium 8.9, Total Bilirubin 1.1H, Aspartate Amino Transf (AST/SGOT) 30, Alanine Aminotransferase (ALT/SGPT) 37, Alkaline Phosphatase 120, Total Protein 5.5L, Albumin 3.2 08/11/20 05:15: White Blood Count 13.8H, Red Blood Count 3.36L, Hemoglobin 9.9L, Hematocrit 31L, Mean Corpuscular Volume 94, Mean Corpuscular Hemoglobin 30, Mean Corpuscular Hemoglobin Concent 32, Red Cell Distribution Width 14.1, Platelet Count 362, Mean Platelet Volume 10.4, Immature Granulocyte % (Auto) 1, Neutrophils (%) (Auto) 68, Lymphocytes (%) (Auto) 13, Monocytes (%) (Auto) 15H, Eosinophils (%) (Auto) 2, Basophils (%) (Auto) 0, Neutrophils # (Auto) 9.4H, Lymphocytes # (Auto) 1.9, Monocytes # (Auto) 2.1H, Eosinophils # (Auto) 0.2, Basophils # (Auto ) 0.1, Immature Granulocyte # (Auto) 0.2H, Sodium Level 141, Potassium Level 3.1L, Chloride Level 106, Carbon Dioxide Level 25, Anion Gap 10, Blood Urea Nitrogen 42H, Creatinine 1.20, Estimat Glomerular Filtration Rate 43, BUN/Creatinine Ratio 35, Glucose Level 110H, Calcium Level 8.2L, Corrected Calcium 9.0, Total Bilirubin 0.9, Aspartate Amino Transf (AST/SGOT) 32, Alanine Aminotransferase (ALT/SGPT) 34, Alkaline Phosphatase 125, Total Protein 5.5L, Albumin 3.0L Pending Labs Laboratory Tests 08/08/20 06:15: White Blood Count 13.0, Red Blood Count 3.47, Hemoglobin 10.4, Hematocrit 33, Mean Corpuscular Volume 95, Mean Corpuscular Hemoglobin 30, Mean Corpuscular Hemoglobin Concent 32, Red Cell Distribution Width 13.5, Platelet Count 316, Mean Platelet Volume 10.2, Immature Granulocyte % (Auto) 1, Neutrophils (%) (Auto) 73, Lymphocytes (%) (Auto) 11, Monocytes (%) (Auto) 12, Eosinophils (%) (Auto) 2, Basophils (%) (Auto) 0, Neutrophils # (Auto) 9.5, Lymphocytes # (Auto) 1.5, Monocytes # (Auto) 1.6, Eosinophils # (Auto) 0.2, Basophils # (Auto) 0.1, Immature Granulocyte # (Auto) 0.1, Sodium Level 140, Potassium Level 4.1, Chloride Level 107, Carbon Dioxide Level 24, Anion Gap 9, Blood Urea Nitrogen 35, Creatinine 0.99, Estimat Glomerular Filtration Rate 53, BUN/Creatinine Ratio 35, Glucose Level 99, Calcium Level 7.9, Corrected Calcium 8.7, Total Bilirubin 0.8, Aspartate Amino Transf (AST/SGOT) 33, Alanine Aminotransferase (ALT/SGPT) 36, Alkaline Phosphatase 108, Total Protein 5.1, Albumin 3.0 08/10/20 05:20: White Blood Count 14.1, Red Blood Count 3.39, Hemoglobin 10.1, Hematocrit 33, Mean Corpuscular Volume 97, Mean Corpuscular Hemoglobin 30, Mean Corpuscular Hemoglobin Concent 31, Red Cell Distribution Width 13.8, Platelet Count 337, Mean Platelet Volume 10.5, Immature Granulocyte % (Auto) 1, Neutrophils (%) (Auto) 74, Lymphocytes (%) (Auto) 10, Monocytes (%) (Auto) 13, Eosinophils (%) (Auto) 1, Basophils (%) (Auto) 0, Neutrophils # (Auto) 10.5, Lymphocytes # (Auto) 1.4, Monocytes # (Auto) 1.8, Eosinophils # (Auto) 0.2, Basophils # (Auto) 0.0, Immature Granulocyte # (Auto) 0.2, Neutrophils % (Manual) 81, Lymphocytes % (Manual) 10, Monocytes % (Manual) 6, Eosinophils % (Manual) 1, Band Neutrophils 2, Polychromasia SLIGHT, Elliptocytes SLIGHT, Iron Level 58 08/10/20 05:32: Sodium Level 142, Potassium Level 3.7, Chloride Level 107, Carbon Dioxide Level 22, Anion Gap 13, Blood Urea Nitrogen 39, Creatinine 1.10, Estimat Glomerular Filtration Rate 47, BUN/Creatinine Ratio 35, Glucose Level 98, Calcium Level 8.3, Corrected Calcium 8.9, Total Bilirubin 1.1, Aspartate Amino Transf (AST/SGOT) 30, Alanine Aminotransferase (ALT/SGPT) 37, Alkaline Phosphatase 120, Total Protein 5.5, Albumin 3.2 08/11/20 05:15: White Blood Count 13.8, Red Blood Count 3.36, Hemoglobin 9.9, Hematocrit 31, Mean Corpuscular Volume 94, Mean Corpuscular Hemoglobin 30, Mean Corpuscular Hemoglobin Concent 32, Red Cell Distribution Width 14.1, Platelet Count 362, Mean Platelet Volume 10.4, Immature Granulocyte % (Auto) 1, Neutrophils (%) (Auto) 68, Lymphocytes (%) (Auto) 13, Monocytes (%) (Auto) 15, Eosinophils (%) (Auto) 2, Basophils (%) (Auto) 0, Neutrophils # (Auto) 9.4, Lymphocytes # (Auto) 1.9, Monocytes # (Auto) 2.1, Eosinophils # (Auto) 0.2, Basophils # (Auto) 0.1, Immature Granulocyte # (Auto) 0.2, Sodium Level 141, Potassium Level 3.1, Chloride Level 106, Carbon Dioxide Level 25, Anion Gap 10, Blood Urea Nitrogen 42, Creatinine 1.20, Estimat Glomerular Filtration Rate 43, BUN/Creatinine Ratio 35, Glucose Level 110, Calcium Level 8.2, Corrected Calcium 9.0, Total Bilirubin 0.9, Aspartate Amino Transf (AST/SGOT) 32, Alanine Aminotransferase (ALT/SGPT) 34, Alkaline Phosphatase 125, Total Protein 5.5, Albumin 3.0 Discharge Home Medications: Active Scripts Active Deep Sea (Sodium Chloride) 44 Ml [place] 0 Ml NA NEEDED PRN Yanick-Synephrine (Phenylephrine HCl) 15 Ml Naspr 0 Ml NS Q4H PRN Furosemide 40 Mg Tablet 40 Mg PO DAILY Mirtazapine 15 Mg Tab.rapdis 7.5 Mg PO HS PRN Diltiazem 24Hr ER (Diltiazem HCl) 240 Mg Cap.er.24h 240 Mg PO DAILY@0900 Multaq (Dronedarone HCl) 400 Mg Tablet 400 Mg PO BID Potassium Chloride 10 Meq Capsule.er 10 Meq PO Q48H Metoprolol Succinate 50 Mg Tab.er.24h 50 Mg PO DAILY Reported Liver Complex Tablet (Milk Thistle/Nac/Dandel/[place]mer) 1 Each Tablet 1 Each PO DAILY Tylenol (Acetaminophen) 325 Mg Capsule 325-650 Mg PO Q8H PRN Vitamin C (Ascorbate Calcium) 500 Mg Tablet 500 Mg PO 1200 Cephalexin 250 Mg Capsule 250 Mg PO HS Clopidogrel (Clopidogrel Bisulfate) 75 Mg Tablet 75 Mg PO 1200 Rosuvastatin Calcium 5 Mg Tablet 5 Mg PO HS Cranberry (Cranberry Extract) 500 Mg Tablet 500 Mg PO 1200 Instructions to patient/family Please see electronic discharge instructions given to patient. Diagnosis/Problems Diagnosis/Problems (1) Septic shock (2) Pneumonia (3) Non-STEMI (non-ST elevated myocardial infarction) Status: Acute (4) CAD (coronary artery disease) Status: Chronic (5) Paroxysmal atrial fibrillation Status: Chronic Clinical Quality Measures DVT/VTE Risk/Contraindication: Risk Factor Score Per Nursin GORDO OVERTON DO Aug 11, 2020 11:02
--- NOTE | 2020-08-11 11:25 | NUR ---
CM FINALIZED DISCHARGE PLAN: Patient will dismiss to home today with HHC and new oxygen need. She selected [facility] for her provider and she selected [facility] in [place] for her DME. [facility] does not have anyone to deliver oxygen r/t COVID within their system. Visited with patient again and she selected [facility] for her oxygen provider. HHC: [facility] referral faxed and confirmed receipt. They will call the patient with the start of service time and set up. Spoke to them about her frequent nose bleeds with us and my request for humidified o2 through the DME and the patient's [place] [facility] [place] that she has been using with us. She will take that home with her. DME: [facility] referral faxed and confirmed receipt. Requested that they also please send humidification for the oxygen. Patient will need 3LPM via ME continuous to discharge home with. Updated primary care nurse with the above information. No further needs noted at this time.
--- NOTE | 2020-08-11 11:26 | Occupational Ther Daily Note ---
OT Current Status-Daily Note Subjective Pt alert, agrees to tx. Pt in recliner. Denies ADLs, denies exercises, stating she is too tired. Pt then states she is going home, desires to get dressed. Mental Status/Objective Patient Orientation: Person, Place Attachments: Oxygen ADL-Treatment Therapy Code Descriptions/Definitions Functional Sebastian Measure: 0=Not Assessed/NA 4=Minimal Assistance 1=Total Assistance 5=Supervision or Setup 2=Maximal Assistance 6=Modified Sebastian 3=Moderate Assistance 7=Complete IndependenceSCALE: Activities may be completed with or without assistive devices. 1-Ehvlywxeky-ybblzkk completes the activity by him/herself with no assistance from a helper. 5-Set-up or Clean-up Assistance-helper sets up or cleans up; patient completes activity. [place] assists only prior to or following the activity. 4-Supervision or Touching Assistance-helper provides verbal cues and/or touching/steadying and/or contact guard assistance as patient completes activity. Assistance may be provided throughout the activity or intermittently. 3-Partial/Moderate Assistance-helper does LESS THAN HALF the effort. [place] lifts, holds or supports trunk or limbs, but provides less than half the effort. 2-Substantial/Maximal Assistance-helper does MORE THAN HALF the effort. [place] lifts or holds trunk or limbs and provides more than half the effort. 5-Qolnidimg-cveora does ALL the effort. Patient does none of the effort to complete the activity. Or, the assistance of 2 or more helpers is required for the patient to complete the activity. If activity was not attempted, code reason: 7-Patient Refused. 9-Not Applicable-not attempted and the patient did not perform the activity b efore the current illness, exacerbation or injury. 10-Not Attempted due to Environmental Limitations-(lack of equipment, weather restraints, etc.). 88-Not Attempted due to Medical Conditions or Safety Concerns. Lower Body Dressing (QC): 4 (SBA in stance) On/Off Footwear: 6 (IND in sit in chair) Toileting Hygiene (QC): 4 (s/u and SBA for task in stance. ) Other Treatment Pt agrees to tx. Pt completes sock doffing/ donning in chair. Pt's decontaminator enters, pt and friend have discussion. Pt has decreased response time, though answers appropriately. Pt sit to stand with SBA at walker level to doff briefs- soiled with urine. Pt wipes with SBA. Sits to don briefs with SBA and sit to stand SBA to don over hips. Pt desires to place shoes on- pt unable to complete with socks, decides to wait until different time for pants/ shoes. Pt left with nursing home assistant and visitor with blanket donned, all needs met, call light in reach. Education OT Patient Education: Correct positioning, Progress toward Goal/Update tx plan, Purpose of tx/functional activities, Safety issues Teaching Recipient: Patient Teaching Methods: Demonstration, Discussion Response to Teaching: Verbalize Understanding, Return Demonstration, Reinforcement Needed OT Short Term Goals Short Term Goals Upper body dressin Lower body dressin Putting on/taking off footwear: 5 OT Paedodontist Goals Paedodontist Goals Time Frame: Aug 14, 2020 Eating (QC): 6 Oral Hygiene (QC): 6 Toileting Hygiene (QC): 6 Shower/Bathe Self (QC): 6 Upper Body Dressing (QC): 6 Lower Body Dressing (QC): 6 On/Off Footwear (QC): 6 Additional Goals: 1-Demonstrate ADL Tasks, 2-Verbalize Understanding, 3- ImproveStrength/Chip 1=Demonstrate adherence to instructed precautions during ADL tasks. 2=Patient will verbalize/demonstrate understanding of assistive device s/modifications for ADL. 3=Patient will improve strength/tolerance for activity to enable patient to perform ADL's. OT Education/Plan Problem List/Assessment Assessment: Decreased Activ Tolerance, Decreased Safety Aware, Decreased UE Strength, Impaired Cognition, Impaired I ADL's, Impaired Self-Care Skills Discharge Recommendations Plan/Recommendations: Continue POC Therapy Discharge Recommendati: 24 Hour Supervision, Home & Family Treatment Plan/Plan of Care Treatment,Training & Education: Yes Patient would benefit from OT for education, treatment and training to promote independence in ADL's, mobility, safety and/or upper extremity function for ADL's. Plan of Care: ADL Retraining, Functional Mobility, UE Funct Exercise/Act Treatment Duration: Aug 14, 2020 Frequency: 5 times per week Estimated Hrs Per Day: .25 hour per day Agreement: Yes Rehab Potential: Fair Time/GCodes Start Time: 11:00 Stop Time: 11:16 Total Time Billed (hr/min): 16 Billed Treatment Time 1, ADL (16) d/c this date. STEPHANIE MCGEE OTR Aug 11, 2020 11:26
[2020-08-11 11:42] VITALS: BP 114/61
[2020-08-11 12:20] VITALS: BP 114/61
--- NOTE | 2020-08-11 12:20 | NUR ---
MORENA MARTINEZ demonstrates understanding of discharge instructions and accurately returns instructions upon questioning. Copy of Post-Discharge Instructions and Medication Discharge Instructions given to PT. MORENA MARTINEZ is able to manage continuing needs after discharge. Patients belongings returned to PT. Skin dry and intact; no breakdown noted. Patient discharged from 414-1 on at 1220. MORENA MARTINEZ left floor via WC, accompanied by STAFF.
--- NOTE | 2020-08-11 14:45 | Therapy Team Discharge Summary ---
Therapy Discharge Summary Discharge Recommendations Date of Discharge Aug 11, 2020 at 12:20 Occupational Therapy At [facility], pt was independent with ADLS and functional mobility without AD/AE. Upon admission, pt was independent with oral care and eating, SBA showering, set up upper body dressing, SBA lower body dressing, SBA footwear, and SBA toileting. OT txs focus on increasing independence and safety with ADLs and functional mobility as well as increasing BUE strength and functional endurance. Pt made progress towards goals, meeting LTG of independent level with eating, oral care, and footwear. At discharge, pt required SBA with showering, SBA lower body dressing, and IND with oral care, eating and footwear. Pt discharged home, d/c from OT at this time. Decreased Activ Tolerance, Decreased Safety Aware, Decreased UE Strength, Impaired Cognition, Impaired I ADL's, Impaired Self-Care Skills PT Size Marker Goals Size Marker Goals PT Intermediate Goals Time Frame: Aug 26, 2020 Roll Left to Right (QC): 6 Sit to Lying (QC): 6 Lying-Sitting on Side/Bed(QC): 6 Sit to Stand (QC): 6 Chair/Ulz-hs-Ptwfk Xfer(QC): 6 Car Transfer (QC): 6 Does the Patient Walk: Yes Walk 10 feet (QC): 6 Walk 10ft-Uneven Surface(QC): 6 Walk 50ft with 2 Turns (QC): 6 Walk 150 ft (QC): 6 Does the Pt use WC or Scooter?: No Wheel 50 feet with 2 turns (QC: 9 1 Step (curb) (QC): 6 4 Steps (QC): 6 12 Steps (QC): 88 Picking up an Object (QC): 6 OT Intermediate Goals Size Marker Goals Time Frame: Aug 14, 2020 Eating (QC): 6 (met) Oral Hygiene (QC): 6 (met) Shower/Bathe Self (QC): 6 (not met) Upper Body Dressing (QC): 6 (not met) Lower Body Dressing (QC): 6 (not met) On/Off Footwear (QC): 6 (met) Toileting Hygiene (QC): 6 (not met) Toilet/Commode Transfer (QC): 6 (not met) Additional Goals: 1-Demonstrate ADL Tasks, 2-Verbalize Understanding, 3-ImproveStrength/Chip 1=Demonstrate adherence to instructed precautions during ADL tasks. 2=Patient will verbalize/demonstrate understanding of assistive devices/modifications for ADL. 3=Patient will improve strength/tolerance for activity to enable patient to perform ADL's. JASS JC OT Aug 11, 2020 14:45
--- NOTE | 2020-08-11 17:52 | Cardiology Progress Note ---
Cardiology SOAP Progress Note Subjective: No cardiac complaints. Objective: I&O/Vital Signs Weight (Pounds): 155 Weight (Ounces): 6.0 Weight (Calculated Kilograms): 70.153920 Constitutional: AAO x 3 Respiratory: chest is bilaterally symmetric, lungs clear to auscultation Cardiovascular: regular rate-rhythm, S1 and S2 Gastrointestional: soft, audible bowel sounds Extremities: normal range of motion, non-tender, normal inspection, no lower extremity edema bilateral Neurologic/Psychiatric: no motor/sensory deficits, alert, normal mood/affect, oriented x 3 Skin: normal color, warm/dry Results/Procedures: Labs A/P: Assessment/Dx: Pneumonia, resolving, managed by primary care physician Atrial fibrillation with rapid ventricular response, slightly better heart rate at this time, tolerating current medication well. NSTEMI and post-infarction angina, no active chest pain was reported at this time. Continue to monitor Coronary artery disease with history of PTCA and stents to LAD in 2009 with cardiac catheterization 09/20/2013 revealing patent stents in the proximal and mid LAD; cath in 09/2018, after NSTEMI, showed distal edge stenosis in LAD stent that was treated with Stephania 2.25 x 8 mm. Cath on 08/01/20 showed 99% distal edge restenosis in a long LAD stented segment. This was treated with balloon angioplasty with no significant residual stenosis. Mild CAD elsewhere. LVEDP 28 mmHg Valvular heart disease followed at [facility]: h/o severe mitral regurgitation treated with percutaneous transcatheter repair of the mitral valve with Dr. Hines and David at in July 2019; repeat echo done in December 2019 showing moderate stenosis, valve area 2.5 cm with severe regurgitation. Ejection fraction 35-40 percent. PA pressure 45-50 mmHg H/O Atrial fibrillation with rapid ventricular rate, status post EROS with successful cardioversion August 2017. Intolerant to amiodarone secondary to elevated LFTs and increased fatigue. H/o intolerance to sotalol due to QT prolongation. ILR in place. H/o Multaq tolerance only on once-a-day dosing. Currently in a-fib with controlled rate, per EKG of Jul 31, 2020. [id number] score of 5, patient is maintained on Xarelto. Hypertension,tolerating current medication well. Continue to monitor Hyperlipidemia, continue to monitor lipids History of elevated LFTs while on amiodarone and Lipitor. Both medications were discontinued. Has tolerated Crestor, according to history Mild bilateral carotid artery stenosis. Last ultrasound was done in July 2019, continue to monitor as outpatient. Osteoporosis. 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 Patient to follow with Dr. Medina as an outpatient. Thank you for your consultation. Please call me if you have any questions. Delfina Laguerre MD, FACP, FACC, FSCAI, FHRS, CCDS Interventional Cardiology Cardiac Electrophysiology Vascular Medicine and Endovascular Interventions Jose LAGUERRE MD Aug 11, 2020 17:52
--- NOTE | 2020-08-13 19:19 | CONSULTATION REPORT ---
DATE OF SERVICE: ENT CONSULT ROOM: 414. REFERRING PHYSICIAN: Dr. Hernandez. REASON FOR CONSULTATION: Recurrent epistaxis. HISTORY OF PRESENT ILLNESS: The patient is currently admitted to the hospital for other medical problems. She has begun to have left anterior nosebleeds while hospitalized, she is on anticoagulants. The bleeding is anterior rather than posterior. It comes and goes about five minutes at a time. No other history is known. PHYSICAL EXAMINATION: NOSE: External nose normal. Intranasally on the left side, there was old blood present. This was suctioned out. Underneath the old blood in the anterior portion of the septum, midway up on the septum, there was a broken vessel. This area was cauterized with silver nitrate cautery to obliterate the broken vessel. She tolerated the procedure well. IMPRESSION: Left anterior epistaxis. RECOMMENDATIONS: The nosebleed was cauterized as above. Post-procedure instructions were given. She will return to see us in the future if she has recurrent problems with the nose. Job ID: [id number] DocumentID: [id number] Dictated Date: 08/13/2020 08:20:06 Boring Machine Operator Vertical Date: 08/13/2020 09:08:44 Dictated By: ROSITA WHITT MD
== END 2020-08-11 12:20 | disposition home health service (06) | DRG 193 ==
LOC: 4TH 12:05
PROVIDERS: ADMIT Family Medicine; ATTEND Internal Medicine
PROC: 093K7ZZ Control Bleeding in Nasal Mucosa and Soft Tissue, Via Natural or Artificial Opening (ICD-10-PCS; principal; 2020-08-11)
DX: J18.9 Pneumonia, unspecified organism (principal); I21.4 Non-ST elevation (NSTEMI) myocardial infarction; I23.7 Postinfarction angina; I25.110 Atherosclerotic heart disease of native coronary artery with unstable angina pectoris; N39.0 Urinary tract infection, site not specified; D68.32 Hemorrhagic disorder due to extrinsic circulating anticoagulants; I48.0 Paroxysmal atrial fibrillation; I12.9 Hypertensive chronic kidney disease with stage 1 through stage 4 chronic kidney disease, or unspecified chronic kidney disease; Z66 Do not resuscitate; N18.30 Chronic kidney disease, stage 3 unspecified; R09.02 Hypoxemia; Z95.5 Presence of coronary angioplasty implant and graft; I34.0 Nonrheumatic mitral (valve) insufficiency; E78.5 Hyperlipidemia, unspecified; I65.23 Occlusion and stenosis of bilateral carotid arteries; M81.0 Age-related osteoporosis without current pathological fracture; R04.0 Epistaxis; T45.515A Adverse effect of anticoagulants, initial encounter
CPT/HCPCS: 36415; 80053; 83540; 85007; 85025; 85027; 94761

== ENCOUNTER 2020-09-25 11:17 | Emergency (ER) | payer MEDICARE, OTHER ==
[~2020-09-25] VITALS: Ht 165 cm; Wt 54.0 kg
[~2020-09-25 11:17] MED LIST changes: +DILT240C91 PO; +FURO40TA4 PO; +MIRT-47 PO; +PHEN15SP NS; +SODI44SP2
--- NOTE | 2020-09-25 11:54 | ED Upper Extremity ---
General Chief Complaint: Upper Extremity Stated Complaint: BILATERAL HAND SWELLING Nursing Triage Note: AMBULATED TO ROOM 02 WITH COMPLAINTS OF BILAT HAND SWELLING AND PAIN X3 DAYS. RIGHT HAND WRAPPED IN PERLA BANDAGE. HAND SWOLLEN ET RED AND THE KNUCKLES. LEFT HAND IN A BRACE. USING DEVICES FOR COMFORT. STATES SHE TOOK TYLENOL YESTERDAY BUT IT HAS NOT HELPED. Nursing Sepsis Screen: No Definite Risk Source: patient Exam Limitations: no limitations History of Present Illness Date Seen by Provider: Sep 25, 2020 Time Seen by Provider: 11:52 Initial Comments To ER with bilateral hand swelling for 3 days. No known injury. This affects the right dorsal hand over the second and third metacarpals and MCP joints. This also affects the left hand which is more sore over the dorsum of the left wrist. These areas are slightly red and very tender to palpation or any movement. Onset: just prior to arrival Severity: moderate Pain/Injury Location: bilateral hand Modifying Factors: Improves With Movement Allergies and Home Medications Allergies Coded Allergies: Penicillins (Unverified Allergy, Mild, 04/19/09) Home Medications Acetaminophen 325 Mg Capsule, 325-650 MG PO Q8H PRN for PAIN-MILD (1-4), (Reported) Ascorbate Calcium 500 Mg Tablet, 500 MG PO 1200, (Reported) Cephalexin 250 Mg Capsule, 250 MG PO HS, (Reported) Clopidogrel Bisulfate 75 Mg Tablet, 75 MG PO 1200, (Reported) Cranberry Extract 500 Mg Tablet, 500 MG PO 1200, (Reported) Diltiazem HCl 240 Mg Cap.er.24h, 240 MG PO DAILY@0900 Prescribed by: GORDO OVERTON on 08/11/20 105 Dronedarone HCl 400 Mg Tablet, 400 MG PO BID Prescribed by: GORDO OVERTON on 08/11/20 105 Furosemide 40 Mg Tablet, 40 MG PO DAILY Prescribed by: GORDO OVERTON on 08/11/20 105 Metoprolol Succinate 50 Mg Tab.er.24h, 50 MG PO DAILY Prescribed by: PARISH BONNER on 08/02/20 09 Milk Thistle/Nac/Dandel/Turmer 1 Each Tablet, 1 EACH PO DAILY, (Reported) Mirtazapine 15 Mg Tab.rapdis, 7.5 MG PO HS PRN for INSOMNIA Prescribed by: GORDO OVERTON on 08/11/20 1059 Phenylephrine HCl 15 Ml Naspr, 0 ML NS Q4H PRN for NOSE BLEEDS Prescribed by: GORDO OVERTON on 08/11/20 1059 Potassium Chloride 10 Meq Capsule.er, 10 MEQ PO Q48H Prescribed by: PARISH BONNER on 08/02/20 0923 Rosuvastatin Calcium 5 Mg Tablet, 5 MG PO HS, (Reported) Sodium Chloride 44 Ml [place], 0 ML NA NEEDED PRN for DRY NOSE Prescribed by: GORDO OVERTON on 08/11/20 1059 Patient Home Medication List Home Medication List Reviewed: Yes Review of Systems Constitutional: see HPI; No chills, No fever EENTM: see HPI Respiratory: no symptoms reported Cardiovascular: no symptoms reported Genitourinary: no symptoms reported Musculoskeletal: see HPI Skin: no symptoms reported Psychiatric/Neurological: No Symptoms Reported Past Ncvtffh-Knfdsl-Lkirzc Hx Patient Social History Alcohol Use: Denies Use Smoking Status: Never a Smoker 2nd Hand Smoke Exposure: No Recent Infectious Disease Expo: No Recent Hopitalizations: No Immunizations Up To Date Date of Pneumonia Vaccine: Jun 01, 2018 Date of Influenza Vaccine: May 31, 2020 Seasonal Allergies Seasonal Allergies: No Past Medical History Surgeries: Yes (cardiac stents) Abdominal, Appendectomy, Coronary Stent, Hysterectomy Respiratory: No Cardiac: Yes Atrial Fibrillation, Coronary Artery Disease, Hypertension Neurological: No Reproductive Disorders: No Genitourinary: Yes Bladder Infection, UTI-Chronic Gastrointestinal: No Gastroesophageal Reflux Musculoskeletal: No Osteoporosis Endocrine: No HEENT: Yes (b/l eyes) Cataract Cancer: No Psychosocial: Yes Anxiety Integumentary: No Blood Disorders: No Adverse Reaction/Blood Tranf: No Family Medical History Heart Disease Physical Exam Vital Signs Vital Signs - First Documented 09/25/20 11:32 Temp 36.0 Pulse 120 Resp 16 B/P (MAP) 100/71 (81) Pulse Ox 100 O2 Delivery Nasal Cannula O2 Flow Rate 3.00 Capillary Refill : Less Than 3 Seconds Height, Weight, BMI Height: 5'5.00" Weight: 155lbs. 6.0oz. 70.061159eu; 19.00 BMI Method:Actual General Appearance: WD/WN, no apparent distress HEENT: PERRL/EOMI, normal ENT inspection Neck: non-tender, full range of motion Respiratory: no respiratory distress, no accessory muscle use Shoulder: normal inspection, non-tender Elbow/Forearm: normal inspection, non-tender Wrist: Yes normal inspection, Yes non-tender Hand: Bilateral, limited ROM (Erythema swelling and tenderness to the dorsum of the wrist. On the right there is erythema swelling and tenderness as well as pain with range of motion to the second and third MCP joints) Neurologic/Psychiatric: alert, normal mood/affect, oriented x 3 Skin: normal color, warm/dry Progress/Results/Core Measures Results/Orders Lab Results Laboratory Tests Test 09/25/20 11:55 Range/Units White Blood Count 12.2 H 4.3-11.0 10^3/uL Red Blood Count 4.13 3.80-5.11 10^6/uL Hemoglobin 11.7 11.5-16.0 g/dL Hematocrit 38 35-52 % Mean Corpuscular Volume 92 80-99 fL Mean Corpuscular Hemoglobin 28 25-34 pg Mean Corpuscular Hemoglobin Concent 31 L 32-36 g/dL Red Cell Distribution Width 13.8 10.0-14.5 % Platelet Count 312 130-400 10^3/uL Mean Platelet Volume 10.1 9.0-12.2 fL Immature Granulocyte % (Auto) 0 % Neutrophils (%) (Auto) 78 H 42-75 % Lymphocytes (%) (Auto) 8 L 12-44 % Monocytes (%) (Auto) 13 H 0-12 % Eosinophils (%) (Auto) 1 0-10 % Basophils (%) (Auto) 0 0-10 % Neutrophils # (Auto) 9.5 H 1.8-7.8 10^3/uL Lymphocytes # (Auto) 1.0 1.0-4.0 10^3/uL Monocytes # (Auto) 1.6 H 0.0-1.0 10^3/uL Eosinophils # (Auto) 0.1 0.0-0.3 10^3/uL Basophils # (Auto) 0.0 0.0-0.1 10^3/uL Immature Granulocyte # (Auto) 0.1 0.0-0.1 10^3/uL Sodium Level 138 135-145 MMOL/L Potassium Level 3.8 3.6-5.0 MMOL/L Chloride Level 102 98-107 MMOL/L Carbon Dioxide Level 26 21-32 MMOL/L Anion Gap 10 5-14 MMOL/L Blood Urea Nitrogen 32 H 7-18 MG/DL Creatinine 1.33 H 0.60-1.30 MG/DL Estimat Glomerular Filtration Rate 38 BUN/Creatinine Ratio 24 Glucose Level 132 H 70-105 MG/DL Calcium Level 9.1 8.5-10.1 MG/DL C-Reactive Protein High Sensitivity 11.93 H 0.00-0.50 MG/DL My Orders Orders - AFIA KIRBY APRN Cbc With Automated Diff (09/25/20 11:45) Hs C Reactive Protein (09/25/20 11:45) Basic Metabolic Panel (09/25/20 11:45) Hand, 3 Views, Bilateral (09/25/20 11:46) Anti-Nuclear Ab (Heather) Analyzer (09/25/20 11:51) Ra Factor (Rheumatoid Factor) (09/25/20 11:51) Ketorolac Injection (Toradol Injection) (09/25/20 12:15) Dexamethasone Injection (Decadron Inje (09/25/20 12:15) Medications Given in ED Current Medications Medications Dose Ordered Sig/Aman Route Start Time Stop Time Status Last Admin Dose Admin Dexamethasone Sodium Phosphate 10 mg ONCE ONCE IM 09/25/20 12:15 09/25/20 12:16 DC 09/25/20 12:29 10 MG Ketorolac Tromethamine 30 mg ONCE ONCE IM 09/25/20 12:15 09/25/20 12:16 DC 09/25/20 12:29 30 MG Vital Signs/I&O 09/25/20 11:32 Temp 36.0 Pulse 120 Resp 16 B/P (MAP) 100/71 (81) Pulse Ox 100 O2 Delivery Nasal Cannula O2 Flow Rate 3.00 Blood Pressure Mean: 81 Diagnostic Imaging Diagonstic Imaging: Xray Comments NAME: MORENA MARTINEZ [facility] REC#: [id number] PT STATUS: REG ER : 1935 PHYSICIAN: AFIA KIRBY APRN ADMIT DATE: 09/25/20/ER Draft Date of Exam:09/25/20 HAND, 3 VIEWS, BILATERAL INDICATION: Bilateral hand swelling and pain for several days. EXAMINATION: Bilateral hands, 6 views. FINDINGS: There is rather diffuse arthritic disease noted throughout both hands. This is most prominent along the interphalangeal joints, most notably the 2nd and 3rd digits bilaterally. Also, the 1st and 2nd MP joints bilaterally show considerable arthritic change. There is narrowing of the joint spaces. Mild hypertrophic bony changes are seen about the joint spaces of the interphalangeal joints. No periarticular erosions are demonstrated. There is soft tissue swelling noted over the MP joints of both hands. The carpal bones show good alignment with considerable arthritic disease, most notably along the STT joints bilaterally. There is chondrocalcinosis noted of the triangular fibrocartilage bilaterally. No fractures are demonstrated. IMPRESSION: Diffuse arthritic disease with soft tissue swelling as described throughout both hands. Dictated on workstation # [id number] Dict: 09/25/20 1220 Trans: 09/25/20 1224 [id number] Interpreted by: PENNY ARAGON MD Electronically signed by: Departure Impression Primary Impression: Arthritis of both hands Disposition: 01 HOME, SELF-CARE Condition: Stable Departure-Patient Inst. Decision time for Depature: 12:34 Referrals: GORDO OVERTON DO (PCP/Family) Primary Care Physician Patient Instructions: NO INSTRUCTIONS GIVEN Add. Discharge Instructions: . Call Dr. Overton today to make an appointment for follow-up towards the end of this week or the first of next week. Take the steroids as directed in addition to the pain medication. Return to ER for any worsening. All discharge instructions reviewed with patient and/or family. Voiced understanding. Scripts Tramadol HCl (Ultram) 50 Mg Tablet 50 MG PO Q6H PRN for PAIN-MILD (1-4), #10 TAB Prov: AFIA KIRBY CONTENT COORDINATOR 09/25/20 Methylprednisolone (Methylprednisolone Dose Pack) 4 Mg Tab.ds.pk 4 MG PO UD for 6 Days, #21 PKG PER DOSE PACK INSTRUCTIONS Prov: AFIA KIRBY APRN 09/25/20 Copy Copies To 1: GORDO OVERTON PETER J APRN Sep 25, 2020 11:54
[2020-09-25 12:09] LABS: BASOPHILS % (AUTO) 0 % (0-10); EOSINOPHILS # (AUTO) 0.1 10^3/uL (0.0-0.3); EOSINOPHILS % (AUTO) 1 % (0-10); HEMATOCRIT 38 % (35-52); HEMOGLOBIN 11.7 g/dL (11.5-16.0); LYMPHOCYTES % (AUTO) 8 % (12-44); MEAN CORPUSCULAR HEMOGLOBIN 28 pg (25-34); MEAN CORPUSCULAR HGB CONC 31 g/dL (32-36); MEAN CORPUSCULAR VOLUME 92 fL (80-99); MEAN PLATELET VOLUME 10.1 fL (9.0-12.2); MONOCYTES # (AUTO) 1.6 10^3/uL (0.0-1.0); MONOCYTES % (AUTO) 13 % (0-12); NEUTROPHILS # (AUTO) 9.5 10^3/uL (1.8-7.8); NEUTROPHILS % (AUTO) 78 % (42-75); PLATELET COUNT 312 10^3/uL (130-400); WHITE BLOOD COUNT 12.2 10^3/uL (4.3-11.0)
[2020-09-25] MEDS ORDERED: KETOROLAC 30 MG/ML VIAL IM ONE (12:15)
[2020-09-25 12:16] LABS: POTASSIUM 3.8 MMOL/L (3.6-5.0)
[2020-09-25 12:18] LABS: CALCIUM 9.1 MG/DL (8.5-10.1)
[2020-09-25 12:22] LABS: CREATININE SERUM 1.33 MG/DL (0.60-1.30)
--- NOTE | 2020-09-25 12:24 | Diagnostic Imaging Report ---
INDICATION: Bilateral hand swelling and pain for several days. EXAMINATION: Bilateral hands, 6 views. FINDINGS: There is rather diffuse arthritic disease noted throughout both hands. This is most prominent along the interphalangeal joints, most notably the 2nd and 3rd digits bilaterally. Also, the 1st and 2nd MP joints bilaterally show considerable arthritic change. There is narrowing of the joint spaces. Mild hypertrophic bony changes are seen about the joint spaces of the interphalangeal joints. No periarticular erosions are demonstrated. There is soft tissue swelling noted over the MP joints of both hands. The carpal bones show good alignment with considerable arthritic disease, most notably along the STT joints bilaterally. There is chondrocalcinosis noted of the triangular fibrocartilage bilaterally. No fractures are demonstrated. IMPRESSION: Diffuse arthritic disease with soft tissue swelling as described throughout both hands. Dictated by: Dictated on workstation # [id number]
[2020-09-25] MEDS ORDERED: TRAM-42 PO (12:35)
[2020-09-25] MEDS ORDERED: METH4TAB10 PO (12:35)
[2020-09-25 12:43] VITALS: BP 100/71
--- NOTE | 2020-09-25 12:50 | NUR ---
TALKED WITH PT'S DAUGHTER ET UPDATED HER AND NOTIFIED SHE WAS READY FOR DISCHARGE.
== END 2020-09-25 12:43 | disposition home or self-care (01) ==
LOC: EDUNIT# 11:17 → ER 11:19
DX: M19.042 Primary osteoarthritis, left hand (principal); M19.041 Primary osteoarthritis, right hand; I10 Essential (primary) hypertension; F41.9 Anxiety disorder, unspecified; Z95.5 Presence of coronary angioplasty implant and graft; Z88.0 Allergy status to penicillin; Z82.49 Family history of ischemic heart disease and other diseases of the circulatory system
CPT/HCPCS: 36415; 80048; 85025; 86038; 86141; 86431

== ENCOUNTER 2020-10-11 14:44 | Inpatient (IN) | payer MEDICARE, OTHER ==
[~2020-10-11] VITALS: Ht 165.1 cm; Wt 68.2 kg
[~2020-10-11 14:44] MED LIST changes: -LISI-556 PO; +LISI-729 PO; +METH4TAB10 PO; +TRAM-42 PO
--- NOTE | 2020-10-11 14:53 | ED General ---
General Stated Complaint: POSSIBLE HYPOTENSION History of Present Illness Date Seen by Provider: Oct 11, 2020 Time Seen by Provider: 14:53 Initial Comments 84-year-old female brought in by EMS. Patient is here because she "has no energy" according to patient for quite some time. Patient reports that back in August she was hospitalized and has not had any energy since then that she just wants to sleep all the time. Patient had a possible low blood pressure reading x1 at home by home monitor. When EMS arrived her blood pressure was in the normal range. She denies any fevers chills coughs or other systemic complaints besides lack of energy. Allergies and Home Medications Allergies Coded Allergies: Penicillins (Unverified Allergy, Mild, 04/19/09) Home Medications Acetaminophen 325 Mg Capsule, 325-650 MG PO Q8H PRN for PAIN-MILD (1-4), (Reported) Ascorbate Calcium 500 Mg Tablet, 500 MG PO 1200, (Reported) Cephalexin 250 Mg Capsule, 250 MG PO HS, (Reported) Clopidogrel Bisulfate 75 Mg Tablet, 75 MG PO 1200, (Reported) Cranberry Extract 500 Mg Tablet, 500 MG PO 1200, (Reported) Diltiazem HCl 240 Mg Cap.er.24h, 240 MG PO DAILY@0900 Prescribed by: GORDO OVERTON on 08/11/20 105 Dronedarone HCl 400 Mg Tablet, 400 MG PO BID Prescribed by: GORDO OVERTON on 08/11/20 105 Furosemide 40 Mg Tablet, 40 MG PO DAILY Prescribed by: GORDO OVERTON on 08/11/20 1059 Methylprednisolone 4 Mg Tab.ds.pk, 4 MG PO UD PER DOSE PACK INSTRUCTIONS Prescribed by: AFIA KIRBY on 09/25/20 1235 Metoprolol Succinate 50 Mg Tab.er.24h, 50 MG PO DAILY Prescribed by: PARISH BONNER on 08/02/20 0923 Milk Thistle/Nac/Dandel/[place] 1 Each Tablet, 1 EACH PO DAILY, (Reported) Mirtazapine 15 Mg Tab.rapdis, 7.5 MG PO HS PRN for INSOMNIA Prescribed by: GORDO OVERTON on 08/11/20 105 Phenylephrine HCl 15 Ml Naspr, 0 ML NS Q4H PRN for NOSE BLEEDS Prescribed by: GORDO OVERTON on 08/11/20 105 Potassium Chloride 10 Meq Capsule.er, 10 MEQ PO Q48H Prescribed by: PARISH BONNER on 08/02/20 0923 Rosuvastatin Calcium 5 Mg Tablet, 5 MG PO HS, (Reported) Sodium Chloride 44 Ml [place], 0 ML NA NEEDED PRN for DRY NOSE Prescribed by: GORDO OVERTON on 08/11/20 1059 Tramadol HCl 50 Mg Tablet, 50 MG PO Q6H PRN for PAIN-MILD (1-4) Prescribed by: AFIA KIRBY on 09/25/20 1236 Patient Home Medication List Home Medication List Reviewed: Yes Review of Systems Review of Systems Constitutional: see HPI; No chills, No fever Respiratory: no symptoms reported Cardiovascular: no symptoms reported Gastrointestinal: no symptoms reported Genitourinary: no symptoms reported Musculoskeletal: no symptoms reported Skin: no symptoms reported Psychiatric/Neurological: See HPI Past Pnzkdih-Otdhjz-Vvghed Hx Past Med/Social Hx: Reviewed Nursing Past Med/Soc Hx Patient Social History 2nd Hand Smoke Exposure: No Recent Hopitalizations: No Immunizations Up To Date Date of Pneumonia Vaccine: Jun 01, 2018 Date of Influenza Vaccine: May 31, 2020 Seasonal Allergies Seasonal Allergies: No Past Medical History Surgeries: Yes (cardiac stents) Abdominal, Appendectomy, Coronary Stent, Hysterectomy Respiratory: No Cardiac: Yes Atrial Fibrillation, Coronary Artery Disease, Hypertension Neurological: No Reproductive Disorders: No Genitourinary: Yes Bladder Infection, UTI-Chronic Gastrointestinal: No Gastroesophageal Reflux Musculoskeletal: No Osteoporosis Endocrine: No HEENT: Yes (b/l eyes) Cataract Cancer: No Psychosocial: Yes Anxiety Integumentary: No Blood Disorders: No Adverse Reaction/Blood Tranf: No Family Medical History Heart Disease Physical Exam Vital Signs Vital Signs - First Documented 10/11/20 14:48 Temp 36.0 Pulse 86 Resp 17 B/P (MAP) 103/67 (79) Pulse Ox 99 O2 Delivery Nasal Cannula O2 Flow Rate 3.00 Capillary Refill : Height, Weight, BMI Height: 5'5.00" Weight: 155lbs. 6.0oz. 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 II- XII Norm as Tested, Depressed Affect Skin: Normal Color, Warm/Dry Progress/Results/Core Measures Suspected Sepsis SIRS Temperature: Pulse: Respiratory Rate: Laboratory Tests 10/11/20 14:57: White Blood Count 10.7 Blood Pressure / Mean: Laboratory Tests 10/11/20 14:57: Creatinine 1.33H, Platelet Count 406H, Total Bilirubin 0.4 Results/Orders Lab Results Laboratory Tests Test 10/11/20 14:57 10/11/20 15:00 Range/Units White Blood Count 10.7 4.3-11.0 10^3/uL Red Blood Count 2.92 L 3.80-5.11 10^6/uL Hemoglobin 8.4 L 11.5-16.0 g/dL Hematocrit 27 L 35-52 % Mean Corpuscular Volume 94 80-99 fL Mean Corpuscular Hemoglobin 29 25-34 pg Mean Corpuscular Hemoglobin Concent 31 L 32-36 g/dL Red Cell Distribution Width 16.4 H 10.0-14.5 % Platelet Count 406 H 130-400 10^3/uL Mean Platelet Volume 10.1 9.0-12.2 fL Immature Granulocyte % (Auto) 0 % Neutrophils (%) (Auto) 79 H 42-75 % Lymphocytes (%) (Auto) 10 L 12-44 % Monocytes (%) (Auto) 10 0-12 % Eosinophils (%) (Auto) 1 0-10 % Basophils (%) (Auto) 0 0-10 % Neutrophils # (Auto) 8.4 H 1.8-7.8 X 10^3 Lymphocytes # (Auto) 1.1 1.0-4.0 X 10^3 Monocytes # (Auto) 1.0 0.0-1.0 X 10^3 Eosinophils # (Auto) 0.1 0.0-0.3 10^3/uL Basophils # (Auto) 0.0 0.0-0.1 10^3/uL Immature Granulocyte # (Auto) 0.0 0.0-0.1 10^3/uL Erythrocyte Sedimentation Rate 25 0-30 MM/HR Sodium Level 138 135-145 MMOL/L Potassium Level 3.8 3.6-5.0 MMOL/L Chloride Level 99 98-107 MMOL/L Carbon Dioxide Level 26 21-32 MMOL/L Anion Gap 13 5-14 MMOL/L Blood Urea Nitrogen 29 H 7-18 MG/DL Creatinine 1.33 H 0.60-1.30 MG/DL Estimat Glomerular Filtration Rate 38 BUN/Creatinine Ratio 22 Glucose Level 99 70-105 MG/DL Calcium Level 8.6 8.5-10.1 MG/DL Corrected Calcium 8.8 8.5-10.1 MG/DL Magnesium Level 2.4 1.6-2.4 MG/DL Total Bilirubin 0.4 0.1-1.0 MG/DL Aspartate Amino Transf (AST/SGOT) 22 5-34 U/L Alanine Aminotransferase (ALT/SGPT) 24 0-55 U/L Alkaline Phosphatase 69 40-136 U/L Troponin I < 0.028 <0.028 NG/ML C-Reactive Protein High Sensitivity 0.06 0.00-0.50 MG/DL Total Protein 6.1 L 6.4-8.2 GM/DL Albumin 3.7 3.2-4.5 GM/DL Thyroid Stimulating Hormone (TSH) 1.72 0.35-4.94 UIU/ML Urine Color YELLOW Urine Clarity CLEAR Urine pH 6.5 5-9 Urine Specific [place] 1.015 L 1.016-1.022 Urine Protein NEGATIVE NEGATIVE Urine Glucose (UA) NEGATIVE NEGATIVE Urine Ketones NEGATIVE NEGATIVE Urine Nitrite NEGATIVE NEGATIVE Urine Bilirubin NEGATIVE NEGATIVE Urine Urobilinogen 0.2 < = 1.0 MG/DL Urine Leukocyte Esterase NEGATIVE NEGATIVE Urine RBC (Auto) NEGATIVE NEGATIVE Urine RBC NONE /HPF Urine WBC 2-5 /HPF Urine Squamous Epithelial Cells 2-5 /HPF Urine Crystals NONE /LPF Urine Bacteria NEGATIVE /HPF Urine Casts NONE /LPF Urine Mucus NEGATIVE /LPF Urine Culture Indicated NO Micro Results Microbiology 10/11/20 Influenza Types A,B Antigen (JENN) - Final, Complete My Orders Orders - TRISTIAN NICHOLSON DO Cbc With Automated Diff (10/11/20 14:53) Comprehensive Metabolic Panel (10/11/20 14:53) Hs C Reactive Protein (10/11/20 14:53) Magnesium (10/11/20 14:53) Thyroid Stimulating Hormone (10/11/20 14:53) Ua Culture If Indicated (10/11/20 14:53) Influenza A And B Antigens (10/11/20 14:53) Erythrocyte Sedimentation Rate (10/11/20 14:53) Troponin I (2/10/21 14:53) Ekg Tracing (10/11/20 14:53) Monitor-Rhythm Ecg Trace Only (10/11/20 14:53) Chest 1 View, Ap/Pa Only (10/11/20 14:53) Abdomen/Kub 1view (10/11/20 15:20) Vital Signs/I&O 10/11/20 14:48 Temp 36.0 Pulse 86 Resp 17 B/P (MAP) 103/67 (79) Pulse Ox 99 O2 Delivery Nasal Cannula O2 Flow Rate 3.00 Capillary Refill : Progress Note : Time: 16:05 Progress Note Patient with a hemoglobin drop on 09/25/2020 from 11.7-8.4 today. Family reports she has had a hard dark pebbly stools. She is on Xarelto and aspirin. Called and discussed with Dr. Hanks who would like patient admitted for a GI bleed consult Dr. Oneill and Dr. CEJA help with management. Patient was admitted in stable condition ECG Initial ECG Impression Date: Oct 11, 2020 Initial ECG Impression Time: 14:59 Initial ECG Rate: 84 Initial ECG Rhythm: A Fib/Flutter Initial ECG Intervals Afib, rbbb Initial ECG Impression: Atrial Fibrillation Diagnostic Imaging Diagonstic Imaging: Xray Plain Films/CT/US/NM/MRI: abdomen Comments [facility], [place] NAME: MORENA MARTINEZ [facility] REC#: [id number] PT STATUS: REG ER : 1935 PHYSICIAN: TRISTIAN NICHOLSON DO ADMIT DATE: 10/11/20/ER Draft Date of Exam:10/11/20 ABDOMEN/KUB 1VIEW INDICATION: Abdominal pain. COMPARISON: CT of the chest dated 11/08/2013. TECHNIQUE: Two radiographs of the abdomen dated 10/11/2020. FINDINGS: Loop recorder and vascular stent graft are identified overlying the left heart border. The cardiac silhouette is enlarged. The visualized lung bases are clear. 2 cm round hyperdensity is noted overlying the right iliac wing. This appears slightly increased in size when compared to prior imaging of the chest from 2013. Moderate amount of gas and stool is noted throughout the colon, including extending to the rectal vault. No dilated loops of small bowel. No differential air-fluid levels. No free air. Mild apex left curvature of the visualized thoracolumbar spine with scattered osseous degenerative changes. Severe end-stage degenerative changes of the left hip with severe joint space narrowing and prominent osteophyte formation. Mild to moderate degenerative changes of the right hip. No acute osseous abnormality. IMPRESSION: Moderate amount of stool throughout the colon without evidence of bowel obstruction or free air. 2 cm hyperdensity overlying the right pelvic wing. Given slight interval change since 2013, it is favored that this relates to a benign process such as a bone island. Scattered osseous degenerative changes including severe end-stage degenerative changes within the left hip. Dictated on workstation # [id number] Reviewed: Reviewed by Me, Reviewed/Discussed Diagonstic Imaging: Xray Plain Films/CT/US/NM/MRI: chest Comments [facility]. [place], [place] NAME: MORENA MARTINEZ [facility] REC#: [id number] PT STATUS: REG ER : 1935 PHYSICIAN: TRISTIAN NICHOLSON DO ADMIT DATE: 10/11/20/ER Draft Date of Exam:10/11/20 CHEST 1 VIEW, AP/PA ONLY INDICATION: Weakness, hypotension, no energy. COMPARISON: August 07, 2020. TECHNIQUE: Single radiograph of the chest dated October 11, 2020. FINDINGS: The cardiac silhouette is enlarged, though stable. No significant pulmonary vascular congestion. Vascular stent is seen overlying the left heart border. Loop recorder is again noted overlying the left lower chest. Moderate-sized hiatal hernia. The lungs are clear of focal pulmonary opacity. No pleural effusion. No pneumothorax. No acute osseous abnormality. IMPRESSION: Stable cardiomegaly without significant pulmonary vascular congestion. Additional postsurgical and chronic findings without acute cardiopulmonary abnormality. Dictated on workstation # [id number] Dict: 10/11/20 1536 Trans: 10/11/20 1541 [id number] Reviewed: Reviewed by Me, Reviewed/Discussed Departure Communication (Admissions) Time/Spoke to Admitting Phy: 16:02 Admit to cardiac stepdown, and consult Dr. CEJA and Dr. Oneill Impression Primary Impression: Anemia Qualified Codes: D50.9 - Iron deficiency anemia, unspecified Additional Impression: GI bleed Qualified Codes: K92.2 - Gastrointestinal hemorrhage, unspecified Disposition: ADMITTED INPATIENT Condition: Stable Admissions Decision to Admit Reason: Admit from ER (General) Decision to Admit/Date: Oct 11, 2020 Time/Decision to Admit Time: 16:00 Departure-Patient Inst. Referrals: GORDO OVERTON DO (PCP/Family) Primary Care Physician TRISTIAN NICHOLSON DO Oct 11, 2020 14:53
[2020-10-11 15:06] LABS: BASOPHILS % (AUTO) 0 % (0-10); EOSINOPHILS # (AUTO) 0.1 10^3/uL (0.0-0.3); EOSINOPHILS % (AUTO) 1 % (0-10); HEMATOCRIT 27 % (35-52); HEMOGLOBIN 8.4 g/dL (11.5-16.0); LYMPHOCYTES # (AUTO) 1.1 X 10^3 (1.0-4.0); LYMPHOCYTES % (AUTO) 10 % (12-44); MEAN CORPUSCULAR HEMOGLOBIN 29 pg (25-34); MEAN CORPUSCULAR HGB CONC 31 g/dL (32-36); MEAN CORPUSCULAR VOLUME 94 fL (80-99); MEAN PLATELET VOLUME 10.1 fL (9.0-12.2); MONOCYTES % (AUTO) 10 % (0-12); NEUTROPHILS # (AUTO) 8.4 X 10^3 (1.8-7.8); NEUTROPHILS % (AUTO) 79 % (42-75); PLATELET COUNT 406 10^3/uL (130-400); WHITE BLOOD COUNT 10.7 10^3/uL (4.3-11.0)
[2020-10-11 15:09] LABS: BILIRUBIN,URINE NEGATIVE (NEGATIVE); CLARITY,URINE CLEAR; COLOR,URINE YELLOW; GLUCOSE, URINE (UA) NEGATIVE (NEGATIVE); KETONES,URINE NEGATIVE (NEGATIVE); LEUKOCYTE ESTERASE ,URINE NEGATIVE (NEGATIVE); NITRITE,URINE NEGATIVE (NEGATIVE); PH,URINE 6.5 (5-9); PROTEIN,URINE NEGATIVE (NEGATIVE)
[2020-10-11 15:14] LABS: ALBUMIN 3.7 GM/DL (3.2-4.5); CHLORIDE 99 MMOL/L (98-107); POTASSIUM 3.8 MMOL/L (3.6-5.0); SODIUM 138 MMOL/L (135-145)
[2020-10-11 15:15] LABS: CALCIUM 8.6 MG/DL (8.5-10.1)
[2020-10-11 15:16] LABS: GLUCOSE 99 MG/DL (70-105); TOTAL PROTEIN 6.1 GM/DL (6.4-8.2)
[2020-10-11 15:18] LABS: BILIRUBIN,TOTAL 0.4 MG/DL (0.1-1.0); CARBON DIOXIDE 26 MMOL/L (21-32)
[2020-10-11 15:20] LABS: BACTERIA,URINE NEGATIVE /HPF
[2020-10-11 15:20] LABS: ALKALINE PHOSPHATASE 69 U/L (40-136); CREATININE SERUM 1.33 MG/DL (0.60-1.30); GFR ESTIMATED 38
[2020-10-11 15:21] LABS: BUN/CREATININE RATIO 22
[2020-10-11 15:23] LABS: ALANINE AMINOTRANSFERASE 24 U/L (0-55); MAGNESIUM 2.4 MG/DL (1.6-2.4)
[2020-10-11 15:31] LABS: ERYTHROCYTE SEDIMENTATION RATE 25 MM/HR (0-30)
--- NOTE | 2020-10-11 15:41 | Diagnostic Imaging Report ---
INDICATION: Weakness, hypotension, no energy. COMPARISON: August 07, 2020. TECHNIQUE: Single radiograph of the chest dated October 11, 2020. FINDINGS: The cardiac silhouette is enlarged, though stable. No significant pulmonary vascular congestion. Vascular stent is seen overlying the left heart border. Loop recorder is again noted overlying the left lower chest. Moderate-sized hiatal hernia. The lungs are clear of focal pulmonary opacity. No pleural effusion. No pneumothorax. No acute osseous abnormality. IMPRESSION: Stable cardiomegaly without significant pulmonary vascular congestion. Additional postsurgical and chronic findings without acute cardiopulmonary abnormality. Dictated by: Dictated on workstation # [id number]
--- NOTE | 2020-10-11 15:48 | Diagnostic Imaging Report ---
INDICATION: Abdominal pain. COMPARISON: CT of the chest dated 11/08/2013. TECHNIQUE: Two radiographs of the abdomen dated 10/11/2020. FINDINGS: Loop recorder and vascular stent graft are identified overlying the left heart border. The cardiac silhouette is enlarged. The visualized lung bases are clear. 2 cm round hyperdensity is noted overlying the right iliac wing. This appears slightly increased in size when compared to prior imaging of the chest from 2013. Moderate amount of gas and stool is noted throughout the colon, including extending to the rectal vault. No dilated loops of small bowel. No differential air-fluid levels. No free air. Mild apex left curvature of the visualized thoracolumbar spine with scattered osseous degenerative changes. Severe end-stage degenerative changes of the left hip with severe joint space narrowing and prominent osteophyte formation. Mild to moderate degenerative changes of the right hip. No acute osseous abnormality. IMPRESSION: Moderate amount of stool throughout the colon without evidence of bowel obstruction or free air. 2 cm hyperdensity overlying the right pelvic wing. Given slight interval change since 2013, it is favored that this relates to a benign process such as a bone island. Scattered osseous degenerative changes including severe end-stage degenerative changes within the left hip. Dictated by: Dictated on workstation # [id number]
[2020-10-11] MEDS ORDERED: NS IV 1000 ML 1,000 ML ONE (16:44)
[2020-10-11] MEDS ORDERED: NS IV 1000 ML 1,000 ML IV SCH (17:00)
[2020-10-11] MEDS: NS IV 1000 ML 1,000 ML IV SCH (18:00)
[2020-10-11 18:25] LABS: HEMOGLOBIN 7.6 g/dL (11.5-16.0)
[2020-10-11] MEDS ORDERED: CATHETER FLUSH 10 ML SYR IV PRN (18:45)
--- NOTE | 2020-10-11 18:59 | CONSULTATION REPORT ---
DATE OF SERVICE: ATTENDING PRIMARY CARE PHYSICIAN: Dr. Giovana Hernandez. HISTORY OF PRESENT ILLNESS: The patient is an 84-year-old female who was brought in to the Emergency Department by EMS. Her chief complaint was significant fatigue, which has been going on for quite some time; however, has worsened. Back in 08/2020, she was hospitalized and ever since that time, states that her energy levels had been poor and she sleeps the majority of that time. Upon presentation, her vital signs were stable. She does not report any fever nor chills as well as no cough or upper respiratory symptoms. Laboratory work was done, which did show a low hemoglobin of 7.6 and upon further questioning, she does report that she has noticed dark tarry stools on an intermittent basis for the past several weeks. She reports that she does have some symptoms of gastroesophageal reflux disease. She is also on Plavix for coronary artery disease and atrial fibrillation. PAST MEDICAL HISTORY: Coronary artery disease, atrial fibrillation, hypertension, chronic urinary tract infection, gastroesophageal reflux disease, cataracts, anxiety. PAST SURGICAL HISTORY: Appendectomy, hysterectomy, cardiac catheterization and stent placement. ALLERGIES: PENICILLIN. MEDICATIONS: Cephalexin 250 mg daily, Plavix 75 mg daily, diltiazem 240 mg daily, dronedarone 400 mg b.i.d., furosemide 40 mg daily, Medrol Dosepak daily, metoprolol 50 mg daily, mirtazapine 5 mg p.r.n., phenylephrine nose spray p.r.n., potassium 10 mEq every other day, rosuvastatin 5 mg daily, tramadol p.r.n. SOCIAL HISTORY: Negative smoke, negative alcohol. FAMILY HISTORY: Heart disease. VITAL SIGNS: Blood pressure 103/67, temperature 36.0, pulse 86, respirations 17, pulse ox 99% on 3 liters nasal cannula. REVIEW OF SYSTEMS: Well-nourished female currently in no acute distress. She is not experiencing any shortness of breath or difficulty breathing. No chest pain, palpitations, diaphoresis. Intermittent episodes of epigastric crampy pain. No nausea, vomiting. No hematemesis, no coffee ground emesis intermittent dark tarry stools for the past several weeks. No red blood per rectum. No fever, chills, no recent inadvertent weight loss. All other review of systems negative. PHYSICAL EXAMINATION: CHEST: Clear. Good breath sounds bilaterally. HEART: Regular, no murmurs. EXTREMITIES: No lower extremity edema, negative Homans sign. HEENT: No scleral icterus. NECK: No cervical lymphadenopathy. ABDOMEN: Soft, nondistended. There is mild discomfort in the epigastric region upon deep palpation. No peritoneal signs. SKIN: Warm, dry. LABORATORY DATA: WBC 10.7, hemoglobin 7.6, hematocrit 25, platelets 406. BUN 29, creatinine 1.33. ASSESSMENT AND PLAN: An 84-year-old female with symptomatic anemia and intermittent dark tarry stools, most likely consistent with an upper gastrointestinal bleed. We will monitor her hemoglobin and proceed with medical therapy with a PPI acid civil engineering specialist on a b.i.d. basis as well as Carafate 1 gram q.i.d. and also schedule her for an EGD on this admission. Job ID: [id number] DocumentID: [id number] Dictated Date: 10/11/2020 18:42:57 Physician Relations Representative Date: 10/11/2020 18:58:33 Dictated By: BRIAN CEJA MD
[2020-10-11] MEDS ORDERED: ACETAMINOPHEN 500 MG TAB (TYLENOL) PO PRN (20:00)
[2020-10-11] MEDS ORDERED: NS IV 500 ML 500 ML IV SCH ×2 (20:00)
[2020-10-11] MEDS ORDERED: DOCUSATE SODIUM 100 MG (COLACE) CAP PO PRN (20:00)
[2020-10-11] MEDS ORDERED: FUROSEMIDE 40 MG/4 ML INJ (LASIX) IVP NR (20:00)
[2020-10-11] MEDS ORDERED: HYDROcodone/APAP 5 MG/325 MG (LORTAB) TAB PO PRN (20:00)
[2020-10-11] MEDS ORDERED: MELATONIN 3 MG TABLET PO PRN (20:00)
[2020-10-11] MEDS ORDERED: CALCIUM CARBONATE 500 MG (TUMS) TAB.CHEW PO PRN (20:00)
[2020-10-11] MEDS ORDERED: diphenhydrAMINE 25 MG TAB (BENADRYL) PO PRN (20:00)
[2020-10-11] MEDS ORDERED: ONDANSETRON 4 MG/2 ML (SDV) Z0FRAN IVP PRN (20:00)
[2020-10-11] MEDS ORDERED: ACETAMINOPHEN 325 MG TABLET PO PRN (20:15)
[2020-10-11] MEDS: SUCRALFATE 1 GM (CARAFATE) TAB PO SCH (20:43)
[2020-10-11] MEDS: PANTOPRAZOLE 40 MG (PROTONIX) VIAL IV SCH (20:43)
[2020-10-11] MEDS: SENNA W/DOCUSATE (SENOKOT S) TABLET PO SCH (20:44)
[2020-10-11] MEDS: MIRTAZAPINE 15 MG (REMERON) TAB PO SCH (20:53)
[2020-10-11 23:12] VITALS: BP 82/67
[2020-10-11 23:32] VITALS: BP 100/65
[2020-10-12 02:13] VITALS: BP 104/71
[2020-10-12] MEDS: NS IV 1000 ML 1,000 ML IV SCH ×4 (02:21→16:16)
[2020-10-12 03:31] LABS: BASOPHILS % (AUTO) 0 % (0-10); EOSINOPHILS # (AUTO) 0.1 10^3/uL (0.0-0.3); EOSINOPHILS % (AUTO) 1 % (0-10); HEMATOCRIT 27 % (35-52); HEMOGLOBIN 8.4 g/dL (11.5-16.0); LYMPHOCYTES # (AUTO) 1.7 10^3/uL (1.0-4.0); LYMPHOCYTES % (AUTO) 18 % (12-44); MEAN CORPUSCULAR HEMOGLOBIN 29 pg (25-34); MEAN CORPUSCULAR HGB CONC 31 g/dL (32-36); MEAN CORPUSCULAR VOLUME 93 fL (80-99); MEAN PLATELET VOLUME 10.5 fL (9.0-12.2); MONOCYTES # (AUTO) 0.8 10^3/uL (0.0-1.0); MONOCYTES % (AUTO) 9 % (0-12); NEUTROPHILS # (AUTO) 6.9 10^3/uL (1.8-7.8); NEUTROPHILS % (AUTO) 72 % (42-75); PLATELET COUNT 296 10^3/uL (130-400); WHITE BLOOD COUNT 9.6 10^3/uL (4.3-11.0)
[2020-10-12 03:52] LABS: ALBUMIN 3.1 GM/DL (3.2-4.5); POTASSIUM 3.1 MMOL/L (3.6-5.0)
[2020-10-12 03:54] LABS: CALCIUM 7.9 MG/DL (8.5-10.1)
[2020-10-12 03:55] LABS: TOTAL PROTEIN 5.2 GM/DL (6.4-8.2)
[2020-10-12 03:57] LABS: BILIRUBIN,TOTAL 0.7 MG/DL (0.1-1.0)
[2020-10-12 03:58] LABS: CREATININE SERUM 1.45 MG/DL (0.60-1.30)
[2020-10-12 04:41] LABS: MAGNESIUM 2.3 MG/DL (1.6-2.4)
--- NOTE | 2020-10-12 07:50 | Consultation-Cardiology ---
HPI-Cardiology Cardiology Consultation: Date of Consultation 10/12/20 Time Seen by a Provider: 08:15 Date of Admission 10-11-20 Attending Physician Giovana Hernandez DO Admitting Physician Giovana Hernandez DO Consulting Physician PARISH URBAN HPI: Chief Complaint: A-fib with RVR Ms. Bravo is an 84 yr old female admitted to 511 from the ED with c/o increasing weakness, SOB and anemia. She reports she has had progressive symptoms over the last few weeks. She reports dark, tarry bowel movements. No c/o CP, palpitations, syncope or near syncope. No c/o n/v/d. No c/o LE swelling. Review of Systems-Cardiology Review of Systems Constitutional: No chills, No fever; malaise Eyes: No vision change Ears/Nose/Throat: No epistaxis, No recent hearing loss Respiratory: As described under HPI Cardiovascular: As described under HPI Gastrointestinal: No diarrhea, No nausea; vomiting, stool coloration changes (dark, tarry) Genitourinary: No dysuria, No hematuria Musculoskeletal: no symptoms reported Skin: No rash on exposed areas, No ulcerations on exposed areas Psychiatric/Neurological: No anxiety, No depression, No seizure, No focal weakness, No syncope Hematologic: No bleeding abnormalities [id number] Hx Patient Social History Smoking Status: Never a Smoker 2nd Hand Smoke Exposure: No Alcohol Use?: No Pt feels they are or have been: No Immunizations Up To Date Tetanus Booster (TDap): Unknown Date of Pneumonia Vaccine: Jun 01, 2018 Date of Influenza Vaccine: Jun 10, 2021 Past Medical History PMH As described under Assessment. Family Medical History Family Medical History: Reported family history of father and mother having CAD. Allergies and Home Medications Allergies Coded Allergies: Penicillins (Unverified Allergy, Mild, 04/19/09) Home Medications Ascorbate Calcium 500 Mg Tablet, 500 MG PO DAILY, (Reported) Aspirin 81 Mg Tablet.dr, 81 MG PO 1200, (Reported) Cephalexin 250 Mg Capsule, 250 MG PO 1800, (Reported) Cholecalciferol (Vitamin D3) 125 Mcg Capsule, 125 MCG PO 1200, (Reported) Cranberry Extract 500 Mg Tablet, 500 MG PO 1200, (Reported) Diltiazem HCl 240 Mg Cap.er.deg, 240 MG PO DAILY, (Reported) Furosemide 40 Mg Tablet, 40 MG PO DAILY, (Reported) Metoprolol Succinate 25 Mg Tab.er.24h, 25 MG PO 1800, (Reported) [place]-3/Dha/Epa/Fish Oil 1 Each Capsule, 1 EACH PO 1200, (Reported) Potassium Chloride 10 Meq Tablet.er, 10 MEQ PO DAILY, (Reported) Rivaroxaban 20 Mg Tablet, 20 MG PO 1800, (Reported) Rosuvastatin Calcium 5 Mg Tablet, 5 MG PO 1800, (Reported) Physical Exam-Cardiology Physical Exam Vital Signs/I&O 10/16/20 10/16/20 10/16/20 10/16/20 00:00 01:00 02:19 04:00 Temp 36.0 36.2 Pulse 133 118 114 Resp 17 17 B/P (MAP) 119/64 (82) 122/68 (86) Pulse Ox 100 95 100 O2 Delivery Nasal Cannula Nasal Cannula Nasal Cannula O2 Flow Rate 3.00 3.00 3.00 10/16/20 10/16/20 10/16/20 06:34 08:00 09:55 Temp 35.8 Pulse 113 136 Resp 18 B/P (MAP) 160/95 (116) Pulse Ox 98 96 O2 Delivery Nasal Cannula Nasal Cannula O2 Flow Rate 3.00 2.00 10/16/20 00:00 Intake Total 400 ml Output Total 200 ml Balance 200 ml Capillary Refill : Less Than 3 Seconds Constitutional: AAO x 3, well-developed, other (thin) HEENT: PERRL, hearing is well preserved, oral hygience is good Neck: carotid pulses are 2 + bilaterally Respiratory: No accessory muscle use, No respiratory distress; chest expansion is symmetric, chest is bilaterally symmetric, lungs clear to auscultation Cardiovascular: irregularly irregular; No JVD; tachycardia Gastrointestinal: No tender; soft, round, audible bowel sounds Extremities: no lower extremity edema bilateral Skin: No rash on exposed areas, No ulcerations on exposed areas Data Review Labs Laboratory Tests 10/16/20 06:45: White Blood Count 14.0H, Red Blood Count 3.46L, Hemoglobin 9.5L, Hematocrit 31L, Mean Corpuscular Volume 90, Mean Corpuscular Hemoglobin 28, Mean Corpuscular Hemoglobin Concent 31L, Red Cell Distribution Width 17.6H, Platelet Count 345, Mean Platelet Volume 10.0, Immature Granulocyte % (Auto) 0, Neutrophils (%) (Auto) 89H, Lymphocytes (%) (Auto) 4L, Monocytes (%) (Auto) 6, Eosinophils (%) (Auto) 0, Basophils (%) (Auto) 0, Neutrophils # (Auto) 12.5H, Lymphocytes # (Auto) 0.6L, Monocytes # (Auto) 0.9, Eosinophils # (Auto) 0.0, Basophils # (Auto) 0.0, Immature Granulocyte # (Auto) 0.1, Neutrophils % (Manual) 93, Lymphocytes % (Manual) 3, Monocytes % (Manual) 3, Band Neutrophils 1, Hypochromasia SLIGHT, Poikilocytosis SLIGHT, Anisocytosis MODERATE, Jody Cells SLIGHT, Elliptocytes MODERATE, Acanthocytes SLIGHT, Sodium Level 145, Potassium Level 3.9, Chloride Level 116H, Carbon Dioxide Level 17L, Anion Gap 12, Blood Urea Nitrogen 27H, Creatinine 1.17, Estimat Glomerular Filtration Rate 44, BUN/Creatinine Ratio 23, Glucose Level 114H, Calcium Level 8.9, Corrected Calcium 9.4, Total Bilirubin 0.5, Aspartate Amino Transf (AST/SGOT) 40H, Alanine Aminotransferase (ALT/SGPT) 42, Alkaline Phosphatase 74, Total Protein 5.8L, Albumin 3.4 Microbiology 10/14/20 Blood Culture - Preliminary, Resulted No growth 10/11/20 Influenza Types A,B Antigen (JENN) - Final, Complete Radiology NAME: MORENA BRAVO [facility] REC#: [id number] PT STATUS: ADM IN : 1935 PHYSICIAN: TRISTIAN NICHOLSON DO ADMIT DATE: 10/11/20/[facility] Signed Date of Exam:10/11/20 CHEST 1 VIEW, AP/PA ONLY INDICATION: Weakness, hypotension, no energy. COMPARISON: August 07, 2020. TECHNIQUE: Single radiograph of the chest dated October 11, 2020. FINDINGS: The cardiac silhouette is enlarged, though stable. No significant pulmonary vascular congestion. Vascular stent is seen overlying the left heart border. Loop recorder is again noted overlying the left lower chest. Moderate-sized hiatal hernia. The lungs are clear of focal pulmonary opacity. No pleural effusion. No pneumothorax. No acute osseous abnormality. IMPRESSION: Stable cardiomegaly without significant pulmonary vascular congestion. Additional postsurgical and chronic findings without acute cardiopulmonary abnormality. Dictated by: Dictated on workstation # [id number] Dict: 10/11/20 1536 Trans: 10/11/20 1706 [id number] Interpreted by: JENNIFER JIMENES MD Electronically signed by: JENNIFER JIMENES MD 10/11/20 1706 ECG Impression ECG Initial ECG Impression: Atrial Fibrillation A/P-Cardiology Assessment/Admission Diagnosis Anemia of undetermined etiology Atrial fibrillation with rapid ventricular response - resume home medications Coronary artery disease with history of PTCA and stents to LAD in 2009 with cardiac catheterization 09/20/2013 revealing patent stents in the proximal and mid LAD; - cath in 09/2018, after NSTEMI, showed distal edge stenosis in LAD stent that was treated with Stephania 2.25 x 8 mm. - Cath on 08/01/20 showed 99% distal edge restenosis in a long LAD stented segment. This was treated with balloon angioplasty with no significant residual stenosis. Mild CAD elsewhere. LVEDP 28 mmHg Valvular heart disease followed at [facility]: h/o severe mitral regurgitation treated with percutaneous transcatheter repair of the mitral valve with Dr. Hines and David at in July 2019 - repeat echo done in December 2019 showing moderate stenosis, valve area 2.5 cm with severe regurgitation. Ejection fraction 35-40 percent. PA pressure 45-50 mmHg H/O Atrial fibrillation with rapid ventricular rate, status post EROS with successful cardioversion August 2017 - currently a-fib with uncontrolled rate Multiple medication intolerances: - Intolerant to amiodarone secondary to elevated LFTs and increased fatigue. - H/o intolerance to sotalol due to QT prolongation. - H/o Multaq tolerance only on once-a-day dosing. ILR in place - monitored her Dr. Medina [id number] score of 5, patient is maintained on Xarelto. Hypertension Hyperlipidemia History of elevated LFTs while on amiodarone and Lipitor. Has tolerated Crestor. Mild bilateral carotid artery stenosis. Last ultrasound was done in July 2019 Osteoporosis. 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 Early A-fib with RVR - give Cardizem CD 240mg now and daily - if HR does not improve start Cardizem gtt D/t somewhat low BP not suitable candidate for BB tx OAC on Xarelto for stroke prophylaxis - currently being withheld d/t suspected GIB Advise resumption of OAC as soon as possible, once source of bleeding has been determined and treated, d/t risk of stroke Monitor lab closely Replace electrolytes as indicated Further recs will be based on her hospital course We would like to thank medical services for this consult PARISH BONNER Oct 12, 2020 07:50
[2020-10-12] MEDS: SENNA W/DOCUSATE (SENOKOT S) TABLET PO SCH ×2 (09:03→21:09)
[2020-10-12] MEDS: SUCRALFATE 1 GM (CARAFATE) TAB PO SCH ×4 (09:03→21:09)
[2020-10-12] MEDS: PANTOPRAZOLE 40 MG (PROTONIX) VIAL IV SCH ×2 (09:03→21:09)
--- NOTE | 2020-10-12 13:43 | Consultation-Cardiology ---
HPI-Cardiology Cardiology Consultation: Date of Consultation 10/12/20 Time Seen by a Provider: 09:15 Date of Admission Attending Physician Giovana Overton DO Admitting Physician Giovana Overton DO Consulting Physician DEANNA CHACKO MD, MA, FACP, FACC, FSCAI, CCDS HPI: Chief Complaint: CC: A-fib with RVR HPI Ms. Bravo is an 84 yr old female admitted to [facility] from the ED with c/o increasing weakness, SOB and anemia. She reports she has had progressive symptoms over the last few weeks. She reports dark, tarry bowel movements. No c/o CP, palpitations, syncope or near syncope. No c/o n/v/d. No c/o LE swelling. Review of Systems-Cardiology Review of Systems Constitutional: No chills, No fever; malaise Eyes: No vision change Ears/Nose/Throat: No epistaxis, No recent hearing loss Respiratory: As described under HPI Cardiovascular: As described under HPI Gastrointestinal: No diarrhea, No nausea; vomiting, stool coloration changes (dark, tarry) Genitourinary: No dysuria, No hematuria Musculoskeletal: no symptoms reported Skin: No rash on exposed areas, No ulcerations on exposed areas Psychiatric/Neurological: No anxiety, No depression, No seizure, No focal weakness, No syncope Hematologic: No bleeding abnormalities [id number] Hx Patient Social History Smoking Status: Never a Smoker 2nd Hand Smoke Exposure: No Alcohol Use?: No Pt feels they are or have been: No Immunizations Up To Date Tetanus Booster (TDap): Unknown Date of Pneumonia Vaccine: Jun 01, 2018 Date of Influenza Vaccine: Jun 10, 2021 Past Medical History PMH As described under Assessment. Family Medical History Family Medical History: Reported family history of father and mother having CAD. Allergies and Home Medications Allergies Coded Allergies: Penicillins (Unverified Allergy, Mild, 04/19/09) Home Medications Acetaminophen 325 Mg Capsule, 325-650 MG PO Q8H PRN for PAIN-MILD (1-4), (Reported) Ascorbate Calcium 500 Mg Tablet, 500 MG PO 1200, (Reported) Cephalexin 250 Mg Capsule, 250 MG PO HS, (Reported) Clopidogrel Bisulfate 75 Mg Tablet, 75 MG PO 1200, (Reported) Cranberry Extract 500 Mg Tablet, 500 MG PO 1200, (Reported) Diltiazem HCl 240 Mg Cap.er.24h, 240 MG PO DAILY@0900 Prescribed by: GIOVANA OVERTON on 08/11/20 1059 Dronedarone HCl 400 Mg Tablet, 400 MG PO BID Prescribed by: GIOVANA OVERTON on 08/11/20 1059 Furosemide 40 Mg Tablet, 40 MG PO DAILY Prescribed by: GIOVANA OVERTON on 08/11/20 1059 Methylprednisolone 4 Mg Tab.ds.pk, 4 MG PO UD PER DOSE PACK INSTRUCTIONS Prescribed by: AFIA KIRBY on 09/25/20 1235 Metoprolol Succinate 50 Mg Tab.er.24h, 50 MG PO DAILY Prescribed by: PARISH BONNER on 08/02/20 0923 Milk Thistle/Nac/Dandel/Turmer 1 Each Tablet, 1 EACH PO DAILY, (Reported) Mirtazapine 15 Mg Tab.rapdis, 7.5 MG PO HS PRN for INSOMNIA Prescribed by: GIOVANA OVERTON on 08/11/20 1059 Phenylephrine HCl 15 Ml Naspr, 0 ML NS Q4H PRN for NOSE BLEEDS Prescribed by: GIOVANA OVERTON on 08/11/20 1059 Potassium Chloride 10 Meq Capsule.er, 10 MEQ PO Q48H Prescribed by: PARISH BONNER on 08/02/20 0923 Rosuvastatin Calcium 5 Mg Tablet, 5 MG PO HS, (Reported) Sodium Chloride 44 Ml [place], 0 ML NA NEEDED PRN for DRY NOSE Prescribed by: GIOVANA OVERTON on 08/11/20 105 Tramadol HCl 50 Mg Tablet, 50 MG PO Q6H PRN for PAIN-MILD (1-4) Prescribed by: AFIA KIRBY on 09/25/20 1236 Patient Home Medication List Home Medication List Reviewed: Yes Physical Exam-Cardiology Physical Exam Vital Signs/I&O 10/12/20 10/12/20 10/12/20 10/12/20 02:13 02:24 02:24 03:25 Temp 36.4 36.4 36.4 Pulse 108 122 Resp 20 19 B/P (MAP) 104/71 104/71 (82) 144/92 (109) Pulse Ox 92 93 94 O2 Delivery Nasal Cannula Nasal Cannula Nasal Cannula O2 Flow Rate 3.00 3.00 3.00 10/12/20 10/12/20 10/12/20 10/12/20 07:35 07:48 09:00 09:00 Temp 36.1 Pulse 121 104 Resp 18 B/P (MAP) 105/22 (49) Pulse Ox 98 93 O2 Delivery Nasal Cannula Nasal Cannula Nasal Cannula O2 Flow Rate 3.00 3.00 2.00 10/12/20 11:33 Temp 37.0 Pulse 121 Resp 21 B/P (MAP) 114/65 (81) Pulse Ox 94 O2 Delivery Nasal Cannula O2 Flow Rate 3.00 10/12/20 00:00 Intake Total 250 ml Balance 250 ml Capillary Refill : Less Than 3 Seconds Constitutional: AAO x 3, well-developed, other (thin) HEENT: PERRL, hearing is well preserved, oral hygience is good Neck: carotid pulses are 2 + bilaterally Respiratory: No accessory muscle use, No respiratory distress; chest expansion is symmetric, chest is bilaterally symmetric, lungs clear to auscultation Cardiovascular: irregularly irregular; No JVD; tachycardia, systolic murmur (soft LOBO at card base) Gastrointestinal: No tender; soft, round, audible bowel sounds Extremities: no lower extremity edema bilateral Neurologic/Psychiatric: other (moves all limbs equally) Skin: No rash on exposed areas, No ulcerations on exposed areas Data Review Labs Laboratory Tests 10/11/20 14:57: White Blood Count 10.7, Red Blood Count 2.92L, Hemoglobin 8.4L, Hematocrit 27L, Mean Corpuscular Volume 94, Mean Corpuscular Hemoglobin 29, Mean Corpuscular Hemoglobin Concent 31L, Red Cell Distribution Width 16.4H, Platelet Count 406H, Mean Platelet Volume 10.1, Immature Granulocyte % (Auto) 0, Neutrophils (%) (Auto) 79H, Lymphocytes (%) (Auto) 10L, Monocytes (%) (Auto) 10, Eosinophils (%) (Auto) 1, Basophils (%) (Auto) 0, Neutrophils # (Auto) 8.4H, Lymphocytes # (Auto) 1.1, Monocytes # (Auto) 1.0, Eosinophils # (Auto) 0.1, Basophils # (Auto) 0.0, Immature Granulocyte # (Auto) 0.0, Erythrocyte Sedimentation Rate 25, Sodium Level 138, Potassium Level 3.8, Chloride Level 99, Carbon Dioxide Level 26, Anion Gap 13, Blood Urea Nitrogen 29H, Creatinine 1.33H, Estimat Glomerular Filtration Rate 38, BUN/Creatinine Ratio 22, Glucose Level 99, Calcium Level 8.6, Corrected Calcium 8.8, Magnesium Level 2.4, Total Bilirubin 0.4, Aspartate Amino Transf (AST/SGOT) 22, Alanine Aminotransferase (ALT/SGPT) 24, Alkaline P hosphatase 69, Troponin I < 0.028, C-Reactive Protein High Sensitivity 0.06, Total Protein 6.1L, Albumin 3.7, Thyroid Stimulating Hormone (TSH) 1.72 10/11/20 15:00: Urine Color YELLOW, Urine Clarity CLEAR, Urine pH 6.5, Urine Specific Watson 1.015L, Urine Protein NEGATIVE, Urine Glucose (UA) NEGATIVE, Urine Ketones NEG ATIVE, Urine Nitrite NEGATIVE, Urine Bilirubin NEGATIVE, Urine Urobilinogen 0.2, Urine Leukocyte Esterase NEGATIVE, Urine RBC (Auto) NEGATIVE, Urine RBC NONE, Urine WBC 2-5, Urine Squamous Epithelial Cells 2-5, Urine Crystals NONE, Urine Bacteria NEGATIVE, Urine Casts NONE, Urine Mucus NEGATIVE, Urine Culture Indicated NO 10/11/20 18:15: Hemoglobin 7.6L, Hematocrit 25L 10/12/20 03:00: White Blood Count 9.6, Red Blood Count 2.93L, Hemoglobin 8.4L, Hematocrit 27L, Mean Corpuscular Volume 93, Mean Corpuscular Hemoglobin 29, Mean Corpuscular Hemoglobin Concent 31L, Red Cell Distribution Width 15.9H, Platelet Count 296, Mean Platelet Volume 10.5, Immature Granulocyte % (Auto) 1, Neutrophils (%) (Auto) 72, Lymphocytes (%) (Auto) 18, Monocytes (%) (Auto) 9, Eosinophils (%) (Auto) 1, Basophils (%) (Auto) 0, Neutrophils # (Auto) 6.9, Lymphocytes # (Auto) 1.7, Monocytes # (Auto) 0.8, Eosinophils # (Auto) 0.1, Basophils # (Auto) 0.0, Immature Granulocyte # (Auto) 0.1, Sodium Level 139, Potassium Level 3.1L, Chloride Level 102, Carbon Dioxide Level 25, Anion Gap 12, Blood Urea Nitrogen 33H, Creatinine 1.45H, Estimat Glomerular Filtration Rate 34, BUN/Creatinine Ratio 23, Glucose Level 144H, Calcium Level 7.9L, Corrected Calcium 8.6, Magnesium Level 2.3, Total Bilirubin 0.7, Aspartate Amino Transf (AST/SGOT) 20, Alanine Aminotransferase (ALT/SGPT) 20, Alkaline Phosphatase 58, Total Protein 5 .2L, Albumin 3.1L, Phosphorus Level 3.0 Microbiology 10/11/20 Influenza Types A,B Antigen (JENN) - Final, Complete A/P-Cardiology Assessment/Admission Diagnosis Anemia of undetermined etiology Atrial fibrillation with rapid ventricular response - resume home medications Coronary artery disease with history of PTCA and stents to LAD in 2009 with cardiac catheterization 09/20/2013 revealing patent stents in the proximal and mid LAD; - cath in 09/2018, after NSTEMI, showed distal edge stenosis in LAD stent that was treated with Stephania 2.25 x 8 mm. - Cath on 08/01/20 showed 99% distal edge restenosis in a long LAD stented segment. This was treated with balloon angioplasty with no significant residual stenosis. Mild CAD elsewhere. LVEDP 28 mmHg Valvular heart disease followed at [facility]: h/o severe mitral regurgitation treated with percutaneous transcatheter repair of the mitral valve with Dr. Hines and David at in July 2019 - repeat echo done in December 2019 showing moderate stenosis, valve area 2.5 cm with severe regurgitation. Ejection fraction 35-40 percent. PA pressure 45-50 mmHg H/O Atrial fibrillation with rapid ventricular rate, status post EROS with suc cessful cardioversion August 2017 - currently a-fib with uncontrolled rate Multiple medication intolerances: - Intolerant to amiodarone secondary to elevated LFTs and increased fatigue. - H/o intolerance to sotalol due to QT prolongation. - H/o Multaq tolerance only on once-a-day dosing. ILR in place - monitored her Dr. Medina [id number] score of 5, patient is maintained on Xarelto. Hypertension Hyperlipidemia History of elevated LFTs while on amiodarone and Lipitor. Has tolerated Crestor. Mild bilateral carotid artery stenosis. Last ultrasound was done in July 2019 Osteoporosis. 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 Early A-fib with RVR - give Cardizem CD 240mg now and daily - if HR does not improve start Cardizem gtt D/t somewhat low BP not suitable candidate for BB tx OAC on Xarelto for stroke prophylaxis - currently being withheld d/t suspected GIB Advise resumption of OAC as soon as possible, once source of bleeding has been determined and treated, d/t risk of stroke Monitor lab closely Replace electrolytes as indicated Further recs will be based on her hospital course We would like to thank medical services for this consult DEANNA CHACKO MD FACP FAC CCDS Oct 12, 2020 13:43
[2020-10-12] MEDS ORDERED: dilTIAZem120 MG (CARDIZEM CD) CAP PO ONE (13:45)
[2020-10-12] MEDS ORDERED: DILT240C47 PO (14:31)
[2020-10-12] MEDS ORDERED: FURO40TA4 PO (14:31)
[2020-10-12] MEDS ORDERED: CHOL500050 PO (14:36)
[2020-10-12] MEDS ORDERED: CEPH250C PO (14:36)
[2020-10-12] MEDS ORDERED: MTP25TSR PO (14:36)
[2020-10-12] MEDS ORDERED: RIVA20TA PO (14:36)
[2020-10-12] MEDS ORDERED: ASCO-262 PO (14:36)
[2020-10-12] MEDS ORDERED: ASPI-1238 PO (14:36)
[2020-10-12] MEDS ORDERED: OMEG-34 PO (14:36)
[2020-10-12] MEDS ORDERED: POTA10TA PO (14:36)
[2020-10-12] MEDS ORDERED: CRAN500T2 PO (14:36)
[2020-10-12] MEDS ORDERED: ROSU5TAB13 PO (14:36)
--- NOTE | 2020-10-12 15:02 | Progress Note-Pre Operative ---
Pre-Operative Progress Note H&P Reviewed The H&P was reviewed, patient examined and no changes noted. Date Seen by Provider: Oct 12, 2020 Time Seen by Provider: 15:00 Date H&P Reviewed: Oct 12, 2020 Time H&P Reviewed: 15:00 Pre-Operative Diagnosis: sx anemia with dark stools BRIAN CEJA MD Oct 12, 2020 15:02
--- NOTE | 2020-10-12 18:48 | History & Physical-Hospitalist ---
SUNDEEP MADERA,[facility] 10/12/20 1848: History of Present Illness HPI/Chief Complaint 84 yo woman presenting with severe fatigue that has worsened over the last few days. The fatigue has been going on since a hospitalization in August 2020 after which she experienced decreased energy levels and increased amount of sleep. She has also noticed intermittent black, tarry stools for the past several weeks. Date Seen 10/12/20 Time Seen by a Provider: 10:30 Attending Physician Giovana Hernandez DO PCP Giovana Hernandez DO Referring Physician Date of Admission Oct 11, 2020 at 16:05 Home Medications & Allergies Home Medications Home Meds Active Reported Xarelto (Rivaroxaban) 20 Mg Tablet 20 Mg PO 1800 Rosuvastatin Calcium 5 Mg Tablet 5 Mg PO 1800 Metoprolol Succinate 25 Mg Tab.er.24h 25 Mg PO 1800 Cephalexin 250 Mg Capsule 250 Mg PO 1800 Vitamin D3 (Cholecalciferol (Vitamin D3)) 125 Mcg Capsule 125 Mcg PO 1200 Fish Oil 500 mg Softgel ([place]-3/Dha/Epa/Fish Oil) 1 Each Capsule 1 Each PO 1200 Cranberry (Cranberry Extract) 500 Mg Tablet 500 Mg PO 1200 Aspirin EC (Aspirin) 81 Mg Tablet.dr 81 Mg PO 1200 Vitamin C (Ascorbate Calcium) 500 Mg Tablet 500 Mg PO DAILY K-Tab ER (Potassium Chloride) 10 Meq Tablet.er 10 Meq PO DAILY Furosemide 40 Mg Tablet 40 Mg PO DAILY Dilt-Xr (Diltiazem HCl) 240 Mg Cap.er.deg 240 Mg PO DAILY Reviewed patient Home Medication Reconciliation performed by pharmacy medication reconciliations audio/video technician and/or nursing. Patients Allergies have been reviewed. Allergies Allergies Coded Allergies Penicillins (Unverified Allergy, Mild, 04/19/09) Past Iyrcutz-Gwsufb-Zowrbf Hx Past Med/Social Hx: Reviewed Nursing Past Med/Soc Hx Patient Social History Alcohol Use: Denies Use Recreational Drug Use: No Smoking Status: Never a Smoker 2nd Hand Smoke Exposure: No Recent Foreign Travel: No Contact w/other who traveled: No Recent Hopitalizations: No Recent Infectious Disease Expo: No Immunizations Up To Date Tetanus Booster (TDap): Unknown Date of Pneumonia Vaccine: Jun 01, 2018 Date of Influenza Vaccine: Jun 10, 2021 Seasonal Allergies Seasonal Allergies: No Past Medical History Surgeries: Abdominal, Appendectomy, Coronary Stent, Hysterectomy Cardiac: Atrial Fibrillation, Coronary Artery Disease, Hypertension Reproductive: No Genitourinary: Bladder Infection, UTI-Chronic Gastrointestinal: Gastroesophageal Reflux Musculoskeletal: Osteoporosis HEENT: Cataract Psychosocial: Anxiety History of Blood Disorders: No Adverse Reaction to Blood Pittman: No Family History Heart Disease Review of Systems Respiratory: dyspnea on exertion, short of breath Musculoskeletal: no symptoms reported Skin: no symptoms reported Psychiatric/Neurological: No Symptoms Reported Physical Exam Physical Exam Vital Signs Vital Signs - First Documented 10/11/20 14:48 Temp 36.0 Pulse 86 Resp 17 B/P (MAP) 103/67 (79) Pulse Ox 99 O2 Delivery Nasal Cannula O2 Flow Rate 3.00 Capillary Refill : Less Than 3 Seconds Height, Weight, BMI Height: 5'5.00" Weight: 155lbs. 6.0oz. 70.994474rn; 24.00 BMI Method:Actual General Appearance: No Apparent Distress, Chronically ill Respiratory: Chest Non Tender Gastrointestinal: Normal Bowel Sounds Results Results/Procedures Labs Laboratory Tests 10/11/20 14:57 10/11/20 18:15 10/12/20 03:00 Patient resulted labs reviewed. Laboratory Tests 10/12/20 03:00: White Blood Count 9.6, Red Blood Count 2.93L, Hemoglobin 8.4L, Hematocrit 27L, Mean Corpuscular Volume 93, Mean Corpuscular Hemoglobin 29, Mean Corpuscular Hemoglobin Concent 31L, Red Cell Distribution Width 15.9H, Platelet Count 296, Mean Platelet Volume 10.5, Immature Granulocyte % (Auto) 1, Neutrophils (%) (Auto) 72, Lymphocytes (%) (Auto) 18, Monocytes (%) (Auto) 9, Eosinophils (%) (Auto) 1, Basophils (%) (Auto) 0, Neutrophils # (Auto) 6.9, Lymphocytes # (Auto) 1.7, Monocytes # (Auto) 0.8, Eosinophils # (Auto) 0.1, Basophils # (Auto) 0.0, Immature Granulocyte # (Auto) 0.1, Sodium Level 139, Potassium Level 3.1L, Chloride Level 102, Carbon Dioxide Level 25, Anion Gap 12, Blood Urea Nitrogen 33H, Creatinine 1.45H, Estimat Glomerular Filtration Rate 34, BUN/Creatinine Ratio 23, Glucose Level 144H, Calcium Level 7.9L, Corrected Calcium 8.6, Phosphorus Level 3.0, Magnesium Level 2.3, Total Bilirubin 0.7, Aspartate Amino Transf (AST/SGOT) 20, Alanine Aminotransferase (ALT/SGPT) 20, Alkaline Phosphatase 58, Total Protein 5.2L, Albumin 3.1L Microbiology 10/11/20 Influenza Types A,B Antigen (JENN) - Final, Complete Imaging: Reviewed Imaging Report Imaging 1. CXR IMPRESSION: Stable cardiomegaly without significant pulmonary vascular congestion. Additional postsurgical and chronic findings without acute cardiopulmonary abnormality. 2. Abdominal XR IMPRESSION: Moderate amount of stool throughout the colon without evidence of bowel obstruction or free air. 2 cm hyperdensity overlying the right pelvic wing. Given slight interval change since 2013, it is favored that this relates to a benign process such as a bone island. Scattered osseous degenerative changes including severe end-stage degenerative changes within the left hip. Assessment/Plan Admission Diagnosis GI bleed Admission Status: Observation Reason for Inpatient Admission: EGD to determine & potentially treat source of GIB Assessment and Plan 1. GIB likely from upper GI source -1 unit PRBCs -Protonix -General surgery consulted, EGD scheduled -hold Plavix 2. A-fib with RVR -cardiology following 3. Acute on chronic renal failure -IVF 4. Hypokalemia -consider replacing K GIOVANA HERNANDEZ DO 10/13/20 0532: History of Present Illness HPI/Chief Complaint CC: Severe anemia presumed GIB on Plavix ASA Xarelto HPI: This is an 84yoWF clinic patient of mine who presents to ER with weakness and found to have anemia and report of black stools. Transfused 1 unit of blood last night. EGD recommended and I did speak to her about that and she is in agreement now. Updated daughter and Hospice will be started at [place] and DNR placed. Source: patient Exam Limitations: no limitations Past Afqqknd-Cgfmmt-Dgkqgz Hx Past Med/Social Hx: Reviewed Nursing Past Med/Soc Hx, Reviewed and Corrections made Patient Social History Marrital Status: Employed/Student: retired Alcohol Use: Denies Use Smoking Status: Never a Smoker Past Medical History Respiratory: Pneumonia Cardiac: Atrial Fibrillation, Cardiomyopathy, Chronic Edema/Swelling, Coronary Artery Disease, Heart Attack, High Cholesterol, Hypertension Genitourinary: Kidney Infection, Renal Failure Review of Systems Constitutional: see HPI, malaise, weakness Gastrointestinal: loss of appetite, melena Physical Exam Physical Exam General Appearance: No Apparent Distress, Chronically ill Respiratory: Lungs Clear, Normal Breath Sounds Cardiovascular: Irregularly Irregular, Tachycardia Neurologic/Psychiatric: Alert, Oriented x3, No Motor/Sensory Deficits, Normal Mood/Affect Assessment/Plan Admission Diagnosis Assessment: Anemia severe requiring transfusion Presumed PUD GIB needs EGD AF w/RVR CAD HTN HLP CRI Plan: Monitor hgb Monitor BP Hospice at [place] DNR Admission Status: Inpatient Order (span 2 midnights) Reason for Inpatient Admission: GIB Diagnosis/Problems Diagnosis/Problems (1) Anemia Status: Acute Qualifiers: Anemia type: iron deficiency Iron deficiency anemia type: unspecified iron deficiency Qualified Codes: D50.9 - Iron deficiency anemia, unspecified (2) GI bleed Status: Acute Qualifiers: GI bleed type/associated pathology: unspecified gastrointestinal hemorrhage type Qualified Codes: K92.2 - Gastrointestinal hemorrhage, unspecified Supervisory-Addendum Brief Verification & Attestation Participated in pt care: history, MDM, physical Personally performed: exam, history, MDM, supervision of care Care discussed with: Medical Student Procedures: n/a Results interpretation: Verified all documentation Verification and Attestation of Medical Student E/M Service A medical student performed and documented this service in my presence. I reviewed and verified all information documented by the medical student and made modifications to such information, when appropriate. I personally performed the physical exam and medical decision making. Giovana Hernandez, Oct 13, 2020,05:32 SUNDEEP MADERA,MED STUD Oct 12, 2020 18:48 GIOVANA HERNANDEZ DO Oct 13, 2020 05:32
[2020-10-12] MEDS: MIRTAZAPINE 15 MG (REMERON) TAB PO SCH (21:09)
[2020-10-13] MEDS: NS IV 1000 ML 1,000 ML IV SCH ×4 (00:08→16:23)
[2020-10-13 05:36] LABS: HEMOGLOBIN 7.9 g/dL (11.5-16.0); WHITE BLOOD COUNT 11.4 10^3/uL (4.3-11.0)
[2020-10-13 05:48] LABS: ALBUMIN 2.9 GM/DL (3.2-4.5); POTASSIUM 3.3 MMOL/L (3.6-5.0)
[2020-10-13 05:49] LABS: CALCIUM 7.5 MG/DL (8.5-10.1)
[2020-10-13 05:50] LABS: TOTAL PROTEIN 4.9 GM/DL (6.4-8.2)
[2020-10-13 05:52] LABS: BILIRUBIN,TOTAL 0.5 MG/DL (0.1-1.0)
[2020-10-13 05:54] LABS: CREATININE SERUM 1.02 MG/DL (0.60-1.30)
[2020-10-13] MEDS: SENNA W/DOCUSATE (SENOKOT S) TABLET PO SCH ×2 (08:00→19:49)
[2020-10-13] MEDS: SUCRALFATE 1 GM (CARAFATE) TAB PO SCH ×4 (08:00→19:49)
[2020-10-13] MEDS: PANTOPRAZOLE 40 MG (PROTONIX) VIAL IV SCH ×2 (08:04→19:49)
[2020-10-13] MEDS ORDERED: dilTIAZem120 MG (CARDIZEM CD) CAP PO NR (10:15)
--- NOTE | 2020-10-13 13:21 | Progress Note - Cardiology ---
Cardiology SOAP Progress Note Subjective: She feels more congested and more short of breath today Intermittent feeling of palp No cp No syncope No n/v/d Gen malaise present Objective: I&O/Vital Signs 10/13/20 10/13/20 10/13/20 10/13/20 03:00 07:00 07:17 09:00 Temp 36.2 Pulse 121 131 114 Resp 14 18 B/P (MAP) 99/66 (77) 89/61 (70) Pulse Ox 91 92 93 O2 Delivery Room Air Nasal Cannula Nasal Cannula O2 Flow Rate 1.00 3.00 10/13/20 10/13/20 10:02 13:05 O2 Delivery Nasal Cannula Nasal Cannula O2 Flow Rate 3.00 3.00 10/13/20 00:00 Intake Total 650 ml Balance 650 ml Weight (Pounds): 155 Weight (Ounces): 6.0 Weight (Calculated Kilograms): 70.347969 Constitutional: AAO x 3, well-developed, other (thin) Respiratory: No accessory muscle use, No respiratory distress; chest expansion is symmetric, chest is bilaterally symmetric, lungs clear to auscultation Cardiovascular: irregularly irregular; No JVD; tachycardia, systolic murmur (soft LOBO at card base) Gastrointestional: No tender; soft, round, audible bowel sounds Extremities: no lower extremity edema bilateral Neurologic/Psychiatric: other (moves all limbs equally) Skin: No rash on exposed areas, No ulcerations on exposed areas Results/Procedures: Labs Laboratory Tests 10/13/20 05:27: White Blood Count 11.4H, Red Blood Count 2.78L, Hemoglobin 7.9L, Hematocrit 26L, Mean Corpuscular Volume 93, Mean Corpuscular Hemoglobin 28, Mean Corpuscular Hemoglobin Concent 31L, Red Cell Distribution Width 16.3H, Platelet Count 261, Mean Platelet Volume 10.0, Sodium Level 141, Potassium Level 3.3L, Chloride Level 111H, Carbon Dioxide Level 22, Anion Gap 8, Blood Urea Nitrogen 25H, Creatinine 1.02, Estimat Glomerular Filtration Rate 52, BUN/Creatinine Ratio 25, Glucose Level 98, Calcium Level 7.5L, Corrected Calcium 8.4L, Total Bilirubin 0.5, Aspartate Amino Transf (AST/SGOT) 17, Alanine Aminotransferase (ALT/SGPT) 17, Alkaline Phosphatase 57, Total Protein 4.9L, Albumin 2.9L 10/13/20 09:09: Coronavirus 2019 (ESTIVEN) PositiveH Microbiology 10/11/20 Influenza Types A,B Antigen (JENN) - Final, Complete Laboratory Tests 10/11/20 14:57 10/11/20 18:15 10/12/20 03:00 10/13/20 05:27 A/P: Assessment: COVID-19 Anemia of undetermined etiology Coronary artery disease with history of PTCA and stents to LAD in 2009 with cardiac catheterization 09/20/2013 revealing patent stents in the proximal and mid LAD; - cath in 09/2018, after NSTEMI, showed distal edge stenosis in LAD stent that was treated with Stephania 2.25 x 8 mm. - Cath on 08/01/20 showed 99% distal edge restenosis in a long LAD stented segment. This was treated with balloon angioplasty with no significant residual stenosis. Mild CAD elsewhere. LVEDP 28 mmHg Valvular heart disease followed at [facility]: h/o severe mitral regurgitation treated with percutaneous transcatheter repair of the mitral valve with Dr. Hines and David at in July 2019 - repeat echo done in December 2019 showing moderate stenosis, valve area 2.5 cm with severe regurgitation. Ejection fraction 35-40 percent. PA pressure 45-50 mmHg H/O Atrial fibrillation with rapid ventricular rate - EROS with successful cardioversion August 2017 - currently a-fib with uncontrolled rate - stroke prophylaxis with rivaroxaban Multiple medication intolerances: - Intolerant to amiodarone secondary to elevated LFTs and increased fatigue. - H/o intolerance to sotalol due to QT prolongation. - H/o Multaq tolerance only on once-a-day dosing. ILR in place - monitored her Dr. Medina Hypertension Hyperlipidemia Mild bilateral carotid artery stenosis. Last ultrasound was done in July 2019 Osteoporosis. CKD 3 Plan: Complex management due to multiple comorbidities and unstable symptoms Increase CCB for vent rate control Advise resumption of OAC as soon as possible, once source of bleeding has been determined and treated, d/t risk of stroke Replenish K Monitor lab closely Replace electrolytes as indicated Med Svce managing COVID and anemia DEANNA CHACKO MD FACP FAC CCDS Oct 13, 2020 13:21
[2020-10-13] MEDS ORDERED: KCL 20 MEQ TAB (K-DUR) PO NR (13:30)
--- NOTE | 2020-10-13 14:02 | Progress Note - Hospitalist ---
SUNDEEP MADERA,[facility] 10/13/20 1402: Subjective HPI/CC On Admission Date Seen by Provider: Oct 13, 2020 Time Seen by Provider: 11:00 CC: Severe anemia presumed GIB on Plavix ASA Xarelto HPI: This is an 84yoWF clinic patient of mine who presents to ER with weakness and found to have anemia and report of black stools. Transfused 1 unit of blood last night. EGD recommended and I did speak to her about that and she is in agreement now. Updated daughter and Hospice will be started at [place] and DNR place d. Focused Exam Respiratory: Lungs Clear, Normal Breath Sounds Cardiovascular: No Edema, Irregularly Irregular Objective Exam Vital Signs Vital Signs Date Time Temp Pulse Resp B/P (MAP) Pulse Ox O2 Delivery O2 Flow Rate FiO2 10/13/20 13:05 Nasal Cannula 3.00 10/13/20 13:00 102 10/13/20 09:00 93 10/13/20 07:17 36.2 18 89/61 (70) Capillary Refill : Less Than 3 Seconds General Appearance: No Apparent Distress Respiratory: Chest Non Tender, Lungs Clear, Normal Breath Sounds Cardiovascular: Irregularly Irregular Extremity: Normal Inspection, No Pedal Edema Results/Procedures Lab Laboratory Tests 10/13/20 05:27 Patient resulted labs reviewed. Laboratory Tests Test 10/13/20 05:27 10/13/20 09:09 Range/Units White Blood Count 11.4 H 4.3-11.0 10^3/uL Red Blood Count 2.78 L 3.80-5.11 10^6/uL Hemoglobin 7.9 L 11.5-16.0 g/dL Hematocrit 26 L 35-52 % Mean Corpuscular Volume 93 80-99 fL Mean Corpuscular Hemoglobin 28 25-34 pg Mean Corpuscular Hemoglobin Concent 31 L 32-36 g/dL Red Cell Distribution Width 16.3 H 10.0-14.5 % Platelet Count 261 130-400 10^3/uL Mean Platelet Volume 10.0 9.0-12.2 fL Sodium Level 141 135-145 MMOL/L Potassium Level 3.3 L 3.6-5.0 MMOL/L Chloride Level 111 H 98-107 MMOL/L Carbon Dioxide Level 22 21-32 MMOL/L Anion Gap 8 5-14 MMOL/L Blood Urea Nitrogen 25 H 7-18 MG/DL Creatinine 1.02 0.60-1.30 MG/DL Estimat Glomerular Filtration Rate 52 BUN/Creatinine Ratio 25 Glucose Level 98 70-105 MG/DL Calcium Level 7.5 L 8.5-10.1 MG/DL Corrected Calcium 8.4 L 8.5-10.1 MG/DL Total Bilirubin 0.5 0.1-1.0 MG/DL Aspartate Amino Transf (AST/SGOT) 17 5-34 U/L Alanine Aminotransferase (ALT/SGPT) 17 0-55 U/L Alkaline Phosphatase 57 40-136 U/L Total Protein 4.9 L 6.4-8.2 GM/DL Albumin 2.9 L 3.2-4.5 GM/DL Coronavirus 2019 (ESTIVEN) Positive H Negative Imaging: Reviewed Imaging Report Radiology 1. CHEST 1 VIEW, AP/PA ONLY INDICATION: Weakness, hypotension, no energy. COMPARISON: August 07, 2020. TECHNIQUE: Single radiograph of the chest dated October 11, 2020. FINDINGS: The cardiac silhouette is enlarged, though stable. No significant pulmonary vascular congestion. Vascular stent is seen overlying the left heart border. Loop recorder is again noted overlying the left lower chest. Moderate-sized hiatal hernia. The lungs are clear of focal pulmonary opacity. No pleural effusion. No pneumothorax. No acute osseous abnormality. IMPRESSION: Stable cardiomegaly without significant pulmonary vascular congestion. Additional postsurgical and chronic findings without acute cardiopulmonary abnormality. 2. ABDOMEN/KUB 1VIEW INDICATION: Abdominal pain. COMPARISON: CT of the chest dated 11/08/2013. TECHNIQUE: Two radiographs of the abdomen dated 10/11/2020. FINDINGS: Loop recorder and vascular stent graft are identified overlying the left heart border. The cardiac silhouette is enlarged. The visualized lung bases are clear. 2 cm round hyperdensity is noted overlying the right iliac wing. This appears slightly increased in size when compared to prior imaging of the chest from 2013. Moderate amount of gas and stool is noted throughout the colon, including extending to the rectal vault. No dilated loops of small bowel. No differential air-fluid levels. No free air. Mild apex left curvature of the visualized thoracolumbar spine with scattered osseous degenerative changes. Severe end-stage degenerative changes of the left hip with severe joint space narrowing and prominent osteophyte formation. Mild to moderate degenerative changes of the right hip. No acute osseous abnormality. IMPRESSION: Moderate amount of stool throughout the colon without evidence of bowel obstruction or free air. 2 cm hyperdensity overlying the right pelvic wing. Given slight interval change since 2013, it is favored that this relates to a benign process such as a bone island. Scattered osseous degenerative changes including severe end-stage degenerative changes within the left hip. Assessment/Plan Assessment and Plan Assess & Plan/Chief Complaint 1. GIB likely from upper GI source -1 unit PRBCs -Protonix -General surgery consulted, EGD scheduled for today -hold Plavix, ASA 81 2. A-fib with RVR -cardiology following -diltiazem 3. Acute on chronic renal failure -IVF 4. Hypokalemia -consider replacing K GIOVANA OVERTON DO 10/14/20 0551: Subjective Subjective/Events-last exam COVID + noted on swab in prep for EGD Patient congested Daughter update when results came in Patient appears more declined today Pressure remain lower AF w/RVR slightly improved Review of Systems General: Fatigue, Malaise Pulmonary: Dyspnea Objective Exam General Appearance: No Apparent Distress, WD/WN, Chronically ill Respiratory: Lungs Clear Cardiovascular: Irregularly Irregular, Tachycardia Neurologic/Psychiatric: Alert, Oriented x3, Depressed Affect, Disoriented Assessment/Plan Assessment and Plan Assess & Plan/Chief Complaint Assessment: COVID + swab in prep for EGD AF w/RVR GIB Anemia requiring transfusions from GIB Advanced age DNR Plan: Hold antiplatelet therapy and OAC Isolation Supervisory-Addendum Brief Verification & Attestation Participated in pt care: history, MDM, physical Personally performed: exam, history, MDM, supervision of care Care discussed with: Medical Student Procedures: n/a Results interpretation: Verified all documentation Verification and Attestation of Medical Student E/M Service A medical student performed and documented this service in my presence. I reviewed and verified all information documented by the medical student and made modifications to such information, when appropriate. I personally performed the physical exam and medical decision making. Giovana Overton, Oct 14, 2020,05:47 SUNDEEP MADERA,MED STUD Oct 13, 2020 14:02 GIOVANA OVERTON DO Oct 14, 2020 05:51
[2020-10-13] MEDS: MIRTAZAPINE 15 MG (REMERON) TAB PO SCH (19:49)
[2020-10-14] MEDS: NS IV 1000 ML 1,000 ML IV SCH (02:40)
[2020-10-14 03:37] LABS: BASOPHILS % (AUTO) 0 % (0-10); EOSINOPHILS # (AUTO) 0.2 10^3/uL (0.0-0.3); EOSINOPHILS % (AUTO) 2 % (0-10); HEMATOCRIT 25 % (35-52); HEMOGLOBIN 7.3 g/dL (11.5-16.0); LYMPHOCYTES # (AUTO) 1.2 10^3/uL (1.0-4.0); LYMPHOCYTES % (AUTO) 16 % (12-44); MEAN CORPUSCULAR HEMOGLOBIN 28 pg (25-34); MEAN CORPUSCULAR HGB CONC 30 g/dL (32-36); MEAN CORPUSCULAR VOLUME 94 fL (80-99); MEAN PLATELET VOLUME 10.2 fL (9.0-12.2); MONOCYTES # (AUTO) 0.7 10^3/uL (0.0-1.0); MONOCYTES % (AUTO) 9 % (0-12); NEUTROPHILS # (AUTO) 5.6 10^3/uL (1.8-7.8); NEUTROPHILS % (AUTO) 72 % (42-75); PLATELET COUNT 227 10^3/uL (130-400); WHITE BLOOD COUNT 7.7 10^3/uL (4.3-11.0)
[2020-10-14 04:00] LABS: ALBUMIN 2.8 GM/DL (3.2-4.5); POTASSIUM 3.6 MMOL/L (3.6-5.0)
[2020-10-14 04:01] LABS: CALCIUM 7.8 MG/DL (8.5-10.1)
[2020-10-14 04:03] LABS: TOTAL PROTEIN 4.7 GM/DL (6.4-8.2)
[2020-10-14 04:04] LABS: BILIRUBIN,TOTAL 0.2 MG/DL (0.1-1.0)
[2020-10-14 04:06] LABS: CREATININE SERUM 0.94 MG/DL (0.60-1.30)
--- NOTE | 2020-10-14 05:28 | Pulmonary Consultation ---
History of Present Illness History of Present Illness Date Seen by Provider: Oct 14, 2020 Time Seen by Provider: 05:26 Date of Admission Allergies and Home Medications Allergies Coded Allergies: Penicillins (Unverified Allergy, Mild, 04/19/09) Home Medications Ascorbate Calcium 500 Mg Tablet, 500 MG PO DAILY, (Reported) Aspirin 81 Mg Tablet.dr, 81 MG PO 1200, (Reported) Cephalexin 250 Mg Capsule, 250 MG PO 1800, (Reported) Cholecalciferol (Vitamin D3) 125 Mcg Capsule, 125 MCG PO 1200, (Reported) Cranberry Extract 500 Mg Tablet, 500 MG PO 1200, (Reported) Diltiazem HCl 240 Mg Cap.er.deg, 240 MG PO DAILY, (Reported) Furosemide 40 Mg Tablet, 40 MG PO DAILY, (Reported) Metoprolol Succinate 25 Mg Tab.er.24h, 25 MG PO 1800, (Reported) [place]-3/Dha/Epa/Fish Oil 1 Each Capsule, 1 EACH PO 1200, (Reported) Potassium Chloride 10 Meq Tablet.er, 10 MEQ PO DAILY, (Reported) Rivaroxaban 20 Mg Tablet, 20 MG PO 1800, (Reported) Rosuvastatin Calcium 5 Mg Tablet, 5 MG PO 1800, (Reported) Past Bzvzxar-Ugzxzh-Lbgbng Hx Past Med/Social Hx: Reviewed Nursing Past Med/Soc Hx, Reviewed and Corrections made Patient Social History Alcohol Use: Denies Use Smoking Status: Never a Smoker 2nd Hand Smoke Exposure: No Recent Infectious Disease Expo: No Recent Hopitalizations: No Alcohol Use?: No Immunizations Up To Date Tetanus Booster (TDap): Unknown Date of Pneumonia Vaccine: Jun 01, 2018 Date of Influenza Vaccine: Jun 10, 2021 Seasonal Allergies Seasonal Allergies: No Past Medical History Surgeries: Yes (cardiac stents) Abdominal, Appendectomy, Coronary Stent, Hysterectomy Respiratory: No Cardiac: Yes Atrial Fibrillation, Cardiomyopathy, Chronic Edema/Swelling, Coronary Artery Disease, Heart Attack, High Cholesterol, Hypertension Neurological: No Reproductive Disorders: No Genitourinary: Yes Kidney Infection, Renal Failure Gastrointestinal: No Gastroesophageal Reflux Musculoskeletal: No Osteoporosis Endocrine: No HEENT: Yes (b/l eyes) Cataract Cancer: No Psychosocial: Yes Anxiety Integumentary: No Blood Disorders: No Adverse Reaction/Blood Tranf: No Family Medical History Heart Disease Sepsis Event Evaluation Height, Weight, BMI Height: 5'5.00" Weight: 155lbs. 6.0oz. 70.975020mb; 24.00 BMI Method:Actual Exam Exam Vital Signs Date Time Temp Pulse Resp B/P (MAP) Pulse Ox O2 Delivery O2 Flow Rate FiO2 10/14/20 04:09 36.4 118 105/64 (78) Vapotherm 25.00 50.00 10/14/20 03:08 94 Vapotherm 15.00 45 10/14/20 03:05 132 93 Vapotherm 15.00 45.00 10/14/20 00:09 119 10/13/20 23:30 96 Nasal Cannula 3.00 10/13/20 23:00 36.8 124 20 95/47 (63) 96 Nasal Cannula 3.00 10/13/20 20:21 96 Nasal Cannula 3.00 10/13/20 19:00 106 10/13/20 19:00 36.2 110 22 116/76 (89) 96 Nasal Cannula 3.00 10/13/20 16:00 36.1 114 18 114/82 (93) 97 Nasal Cannula 3.00 10/13/20 15:00 36.2 90 18 116/77 (90) 97 Nasal Cannula 3.00 10/13/20 13:05 Nasal Cannula 3.00 10/13/20 13:00 102 10/13/20 12:00 36.2 109 18 117/93 (101) 92 Nasal Cannula 3.00 10/13/20 10:02 Nasal Cannula 3.00 10/13/20 09:00 93 Nasal Cannula 3.00 10/13/20 07:17 36.2 114 18 89/61 (70) 92 Nasal Cannula 1.00 10/13/20 07:00 131 I & O 10/14/20 07:00 Intake Total 700 ml Balance 700 ml Height & Weight Height: 5'5.00" Weight: 155lbs. 6.0oz. 70.665201wc; 24.00 BMI Method:Actual General Appearance: No Apparent Distress HEENT: Normal ENT Inspection, Pharynx Normal Neck: Non Tender Respiratory: Chest Non Tender, Lungs Clear, Normal Breath Sounds Cardiovascular: Irregularly Irregular Capillary Refill: Less Than 3 Seconds Extremity: Normal Inspection, No Pedal Edema Neurologic/Psychiatric: Alert, Oriented x3, No Motor/Sensory Deficits, Normal Mood/Affect Skin: Normal Color, Warm/Dry Results Lab Laboratory Tests 10/13/20 05:27 10/14/20 03:25 Assessment/Plan Assessment/Plan Acute respiratory failure secondary to acute COVID -COVID is positive -Start Decadron -Repeat labs -Multani cultures -Check Flu GIB -Protonix BID -Surgery following KATE BELTRÁN DO Oct 14, 2020 05:28
[2020-10-14] MEDS ORDERED: dilTIAZem DRIP PRE-MIX 125 ML IV ONE (05:29)
[2020-10-14] MEDS: LACTATED RINGERS 1,000 ML IV SCH ×2 (05:49→15:53)
[2020-10-14] MEDS ORDERED: NS IV 500 ML 500 ML IV SCH (06:00)
[2020-10-14] MEDS ORDERED: dilTIAZem DRIP PRE-MIX 125 ML IV SCH (06:00)
[2020-10-14 06:16] LABS: ABG BASE EXCESS -4.6 MMOL/L (-2.5-2.5); ABG OXYGEN SATURATION 98 % (94-100); ABG PCO2 32 MMHG (35-45); ABG PO2 131 MMHG (79-93); ABG TCO2 20.4 MMOL/L (21.0-31.0)
[2020-10-14 06:20] LABS: ALLENS TEST POS; INSPIRED O2 50%; PATIENT TEMP 97.9; VENTILATOR NO
--- NOTE | 2020-10-14 08:00 | Diagnostic Imaging Report ---
Portable erect AP chest at 5:43. Indication: Shortness of breath. The cardiomegaly noted on the prior exam of 10/11/2020 is again evident and no different. In the interval since the previous study however bibasilar atelectasis/infiltrate and small bilateral pleural effusions have developed. There is greater involvement of the left lung base. The upper lungs are relatively clear. The mediastinum is not widened. The osseous structures are intact. There is now a loop recorder device in place overlying the lower thorax on the left. IMPRESSION: 1. The appearance of the chest has worsened since the prior study as bibasilar pneumonia/atelectasis and small bilateral pleural effusions have developed. There is greater involvement on the left. 2. A followup exam would be recommended for continued evaluation. Dictated by: Dictated on workstation # [id number]
[2020-10-14] MEDS: PANTOPRAZOLE 40 MG (PROTONIX) VIAL IV SCH ×2 (08:25→19:36)
[2020-10-14] MEDS: SUCRALFATE 1 GM (CARAFATE) TAB PO SCH ×4 (08:26→19:36)
[2020-10-14] MEDS: SENNA W/DOCUSATE (SENOKOT S) TABLET PO SCH ×2 (08:26→19:36)
[2020-10-14] MEDS: RT-ALBUTEROL INHALER HFA (VENTOLIN HFA) 18 GM IH SCH ×3 (09:00→18:42)
--- NOTE | 2020-10-14 10:54 | Progress Note - Hospitalist ---
Subjective HPI/CC On Admission Date Seen by Provider: Oct 14, 2020 Time Seen by Provider: 11:00 CC: Severe anemia presumed GIB on Plavix ASA Xarelto HPI: This is an 84yoWF clinic patient of mine who presents to ER with weakness and found to have anemia and report of black stools. Transfused 1 unit of blood last night. EGD recommended and I did speak to her about that and she is in agreement now. Updated daughter and Hospice will be started at [place] and DNR placed. Subjective/Events-last exam Central line placed by Dr Early AF w/RVR and IVF required Patient feels better Updated daughter Transfused 1 more unit NO pain reported BM+ Eating Review of Systems General: Fatigue, Malaise Cardiovascular: Palpitations Focused Exam Lactate Level 10/14/20 07:03: Lactic Acid Level 1.16 Lactic Acid Level Objective Exam Vital Signs Vital Signs Date Time Temp Pulse Resp B/P (MAP) Pulse Ox O2 Delivery O2 Flow Rate FiO2 10/15/20 06:51 95 Nasal Cannula 3.50 10/15/20 06:00 125 18 117/72 (87) 10/15/20 01:13 35.6 10/14/20 15:10 35 Capillary Refill : Less Than 3 Seconds General Appearance: No Apparent Distress, WD/WN, Chronically ill Respiratory: Chest Non Tender, Lungs Clear, Normal Breath Sounds, No Accessory Muscle Use, No Respiratory Distress Cardiovascular: Regular Rate, Rhythm, No Edema, No Gallop, No JVD, No Murmur, Normal Peripheral Pulses Neurologic/Psychiatric: Alert, Oriented x3, No Motor/Sensory Deficits, Normal Mood/Affect Results/Procedures Lab Laboratory Tests 10/15/20 01:10 Patient resulted labs reviewed. Imaging: Reviewed Imaging Report Assessment/Plan Assessment and Plan Assess & Plan/Chief Complaint Assessment: COVID + swab in prep for EGD AF w/RVR GIB Anemia requiring transfusions from GIB Advanced age DNR Plan: Hold antiplatelet therapy and OAC Isolation 10/14/20: Alicia velez IVF COVID + DNR Hospice at [place] Diagnosis/Problems Diagnosis/Problems (1) COVID-19 (2) Anemia Status: Acute Qualifiers: Anemia type: iron deficiency Iron deficiency anemia type: unspecified iron deficiency Qualified Codes: D50.9 - Iron deficiency anemia, unspecified (3) GI bleed Status: Acute Qualifiers: GI bleed type/associated pathology: unspecified gastrointestinal hemorrhage type Qualified Codes: K92.2 - Gastrointestinal hemorrhage, unspecified GORDO OVERTON DO Oct 14, 2020 10:54
--- NOTE | 2020-10-14 11:24 | Diagnostic Imaging Report ---
CHEST 1 VIEW, AP/PA ONLY Indication: Line placement Comparison: 10/14/2020 at 5:43 AM Findings: Left subclavian central venous catheter is in place and has tip terminating in the region of the confluence of the upper SVC. Small left pleural effusion with patchy left basilar pulmonary opacities are unchanged. No pneumothorax. Stable cardiomediastinal silhouette. Impression: 1. Left subclavian central venous catheter has tip terminating in the region of the upper SVC. 2. No pneumothorax. Dictated by: Dictated on workstation # [id number]
[2020-10-14 11:35] VITALS: BP 121/91
[2020-10-14 11:45] VITALS: BP 110/96
[2020-10-14 13:00] VITALS: BP 121/89
--- NOTE | 2020-10-14 14:20 | Progress Note - Cardiology ---
Cardiology SOAP Progress Note Subjective: No new symptoms Objective: I&O/Vital Signs 10/14/20 10/14/20 10/14/20 10/14/20 03:05 03:08 04:09 06:00 Temp 36.4 Pulse 132 118 118 Resp 18 B/P (MAP) 105/64 (78) 131/89 (103) Pulse Ox 93 94 99 O2 Delivery Vapotherm Vapotherm Vapotherm Vapotherm O2 Flow Rate 15.00 15.00 25.00 25.00 45.00 50.00 50.00 FiO2 45 10/14/20 10/14/20 10/14/20 10/14/20 07:00 07:00 08:00 09:00 Pulse 114 93 126 Resp 20 16 B/P (MAP) 121/88 (99) 129/73 (91) Pulse Ox 100 100 92 O2 Delivery Vapotherm Vapotherm Vapotherm O2 Flow Rate 25.00 25.00 20.00 50.00 50.00 FiO2 40 10/14/20 10/14/20 10/14/20 10/14/20 09:00 10:00 11:00 11:35 Temp 36.5 Pulse 124 124 128 112 Resp 20 19 21 18 B/P (MAP) 112/91 (98) 122/76 (91) 106/76 (86) 121/91 Pulse Ox 100 100 98 96 O2 Delivery Vapotherm Vapotherm Vapotherm Vapotherm O2 Flow Rate 25.00 25.00 25.00 20.00 50.00 50.00 50.00 FiO2 40 10/14/20 10/14/20 10/14/20 10/14/20 11:45 12:00 12:57 13:00 Temp 36.7 36.6 Pulse 124 124 114 112 Resp 18 18 18 B/P (MAP) 110/96 126/93 (104) 121/89 Pulse Ox 96 97 99 O2 Delivery Vapotherm Vapotherm Vapotherm O2 Flow Rate 20.00 25.00 20.00 50.00 FiO2 40 40 10/14/20 10/14/20 10/14/20 13:00 14:00 14:09 Pulse 112 101 Resp 19 19 B/P (MAP) 121/89 (100) 129/91 (104) Pulse Ox 100 98 O2 Delivery Vapotherm Vapotherm Nasal Cannula O2 Flow Rate 25.00 25.00 3.00 50.00 50.00 10/14/20 00:00 Intake Total 700 ml Balance 700 ml Weight (Pounds): 155 Weight (Ounces): 6.0 Weight (Calculated Kilograms): 70.709416 Results/Procedures: Labs Laboratory Tests 10/14/20 03:25: White Blood Count 7.7, Red Blood Count 2.63L, Hemoglobin 7.3L, Hematocrit 25L, Mean Corpuscular Volume 94, Mean Corpuscular Hemoglobin 28, Mean Corpuscular Hemoglobin Concent 30L, Red Cell Distribution Width 16.3H, Platelet Count 227, Mean Platelet Volume 10.2, Immature Granulocyte % (Auto) 0, Neutrophils (%) (Auto) 72, Lymphocytes (%) (Auto) 16, Monocytes (%) (Auto) 9, Eosinophils (%) (Auto) 2, Basophils (%) (Auto) 0, Neutrophils # (Auto) 5.6, Lymphocytes # (Auto) 1.2, Monocytes # (Auto) 0.7, Eosinophils # (Auto) 0.2, Basophils # (Auto) 0.0, Immature Granulocyte # (Auto) 0.0, Sodium Level 142, Potassium Level 3.6, Chloride Level 116H, Carbon Dioxide Level 18L, Anion Gap 8, Blood Urea Nitrogen 21H, Creatinine 0.94, Estimat Glomerular Filtration Rate 57, BUN/Creatinine Ratio 22, Glucose Level 99, Calcium Level 7.8L, Corrected Calcium 8.8, Total Bilirubin 0.2, Aspartate Amino Transf (AST/SGOT) 18, Alanine Aminotransferase (ALT/SGPT) 17, Alkaline Phosphatase 54, B-Type Natriuretic Peptide 573.5H, Total Protein 4.7L, Albumin 2.8L, Procalcitonin 0.31H 10/14/20 05:58: Blood Gas Puncture Site RGHT RAD, Blood Gas Patient Temperature 97.9, Arterial Blood pH 7.40, Arterial Blood Partial Pressure CO2 32L, Arterial Blood Partial Pressure O2 131H, Arterial Blood HCO3 19L, Arterial Blood Total CO2 20.4L, Arterial Blood Oxygen Saturation 98, Arterial Blood Base Excess -4.6L, Red Test POS, Blood Gas Ventilator Setting NO, Blood Gas Inspired Oxygen 50% 10/14/20 07:03: Lactic Acid Level 1.16 Microbiology 10/11/20 Influenza Types A,B Antigen (JENN) - Final, Complete Laboratory Tests 10/13/20 05:27 10/14/20 03:25 A/P: Assessment: Severe anemia due to GI bleed, Dr Hernandez managing COVID-19 (surgical svce has postponed endoscopy) Coronary artery disease with history of PTCA and stents to LAD in 2009 with cardiac catheterization 09/20/2013 revealing patent stents in the proximal and mid LAD; - cath in 09/2018, after NSTEMI, showed distal edge stenosis in LAD stent that was treated with Stephania 2.25 x 8 mm. - Cath on 08/01/20 showed 99% distal edge restenosis in a long LAD stented segment. This was treated with balloon angioplasty with no significant residual stenosis. Mild CAD elsewhere. LVEDP 28 mmHg Valvular heart disease followed at [facility]: h/o severe mitral regurgitation treated with percutaneous transcatheter repair of the mitral valve with Dr. Hines and David at [facility] in July 2019 - repeat echo done in December 2019 showing moderate stenosis, valve area 2.5 cm with severe regurgitation. Ejection fraction 35-40 percent. PA pressure 45-50 mmHg H/O Atrial fibrillation with rapid ventricular rate - EROS with successful cardioversion August 2017 - currently a-fib with uncontrolled rate - stroke prophylaxis with rivaroxaban Multiple medication intolerances: - Intolerant to amiodarone secondary to elevated LFTs and increased fatigue. - H/o intolerance to sotalol due to QT prolongation. - H/o Multaq tolerance only on once-a-day dosing. ILR in place - monitored her Dr. Medina Hypertension Hyperlipidemia Mild bilateral carotid artery stenosis. Last ultrasound was done in July 2019 Osteoporosis. CKD 3 Plan: Complex management due to multiple comorbidities and unstable symptoms Condition has worsened overall since admission. Currently in ICU Further increase CCB for vent rate control today Advise resumption of OAC as soon as possible, once source of bleeding has been determined and treated, d/t risk of stroke Monitor lab closely Replace electrolytes as indicated Med Svce managing COVID and anemia DEANNA CHACKO MD FACP FAC CCDS Oct 14, 2020 14:20
--- NOTE | 2020-10-14 14:39 | OPERATIVE REPORT ---
DATE OF SERVICE: 10/14/2020 ATTENDING PRIMARY CARE PHYSICIAN: Dr. Giovana Hernandez. PREOPERATIVE DIAGNOSES: Anemia, atrial fibrillation, coronavirus positive. POSTOPERATIVE DIAGNOSES: Anemia, atrial fibrillation, coronavirus positive. PROCEDURE: Placement of left subclavian central venous catheter. SURGEON: Brian Ceja MD. ANESTHESIA: Local. ESTIMATED BLOOD LOSS: Minimal. DISPOSITION: The patient tolerated the procedure well. INDICATIONS: The patient is an 84-year-old female who was brought to the Emergency Department with fatigue, which had been going on for quite some time; however, had worsened. Back in 08/2020, she was hospitalized and ever since that time, she states that her energy levels have been poor and she sleeps the majority of the time. She did not report any fever nor chills as well as no cough or upper respiratory symptoms. Laboratory work was done, which did show a hemoglobin of 7.6 and upon further questioning, she had noticed dark tarry stools on an intermittent basis for the past several weeks. She is also on Plavix for coronary artery disease as well as atrial fibrillation. Since being admitted, she was found to be coronavirus positive and she also went into atrial fibrillation and was transferred to the Intensive Care Unit. She has poor peripheral venous circulation and will require a central venous catheter. DESCRIPTION OF PROCEDURE: The chest and neck were prepped and draped in standard surgical fashion. A 1% lidocaine was used to anesthetize the overlying skin in the subclavian region. The left subclavian vein was cannulated with drawing of venous blood. The guidewire was then inserted without any resistance and the cannulating needle removed and a skin incision made using 11-blade. A triple lumen central venous catheter was placed over the guidewire using the Seldinger technique and the guidewire were removed. All three ports gabriela venous blood and saline pushed in without any resistance. The catheter was then sutured to the skin using 3-0 silk suture. The catheter was then cleaned and covered with Op-Site. The patient tolerated the procedure well. We will get a post-procedure x-ray. Job ID: [id number] DocumentID: [id number] Dictated Date: 10/14/2020 11:40:29 Locomotive Engineer Electric Date: 10/14/2020 14:38:43 Dictated By: BRIAN CEJA MD
[2020-10-14] MEDS ORDERED: DIGOXIN 0.25 MG/ML (LANOXIN) 2 ML AMP IV ONE (17:45)
[2020-10-14] MEDS ORDERED: DIGOXIN 0.25 MG/ML (LANOXIN) 2 ML AMP ONE (18:11)
[2020-10-14] MEDS: dilTIAZem120 MG (CARDIZEM CD) CAP PO SCH (19:35)
[2020-10-14] MEDS: MIRTAZAPINE 15 MG (REMERON) TAB PO SCH (20:24)
[2020-10-15] MEDS: LACTATED RINGERS 1,000 ML IV SCH ×2 (01:12→14:16)
[2020-10-15 01:21] LABS: BASOPHILS % (AUTO) 0 % (0-10); EOSINOPHILS % (AUTO) 0 % (0-10); HEMATOCRIT 29 % (35-52); HEMOGLOBIN 8.9 g/dL (11.5-16.0); LYMPHOCYTES # (AUTO) 0.3 10^3/uL (1.0-4.0); LYMPHOCYTES % (AUTO) 4 % (12-44); MEAN CORPUSCULAR HEMOGLOBIN 28 pg (25-34); MEAN CORPUSCULAR HGB CONC 31 g/dL (32-36); MEAN CORPUSCULAR VOLUME 90 fL (80-99); MONOCYTES # (AUTO) 0.3 10^3/uL (0.0-1.0); MONOCYTES % (AUTO) 4 % (0-12); NEUTROPHILS # (AUTO) 6.9 10^3/uL (1.8-7.8); NEUTROPHILS % (AUTO) 92 % (42-75); PLATELET COUNT 243 10^3/uL (130-400); WHITE BLOOD COUNT 7.5 10^3/uL (4.3-11.0)
[2020-10-15 01:30] LABS: POTASSIUM 4.1 MMOL/L (3.6-5.0)
[2020-10-15 01:31] LABS: CALCIUM 8.4 MG/DL (8.5-10.1)
[2020-10-15 01:36] LABS: CREATININE SERUM 0.97 MG/DL (0.60-1.30)
[2020-10-15] MEDS: RT-ALBUTEROL INHALER HFA (VENTOLIN HFA) 18 GM IH SCH ×4 (02:14→20:35)
--- NOTE | 2020-10-15 05:26 | Pulmonary Progress Note ---
Subjective Time Seen by a Provider: 05:24 Subjective/Events-last exam No complications noted. Sepsis Event Evaluation Height, Weight, BMI Height: 5'5.00" Weight: 155lbs. 6.0oz. 70.762708xg; 24.00 BMI Method:Actual Focused Exam Lactate Level 10/14/20 07:03: Lactic Acid Level 1.16 Exam Exam Vital Signs Date Time Temp Pulse Resp B/P (MAP) Pulse Ox O2 Delivery O2 Flow Rate FiO2 10/15/20 05:00 125 20 129/72 (91) 92 Nasal Cannula 3.00 10/15/20 04:00 112 21 125/82 (96) 92 Nasal Cannula 3.00 10/15/20 03:00 116 22 123/86 (98) 91 Nasal Cannula 3.00 10/15/20 02:14 94 Nasal Cannula 3.50 10/15/20 02:00 102 22 131/92 (105) 90 Nasal Cannula 3.00 10/15/20 01:13 35.6 10/15/20 01:00 114 19 93 Nasal Cannula 3.00 10/15/20 01:00 111 10/15/20 00:00 113 20 119/102 (108) 91 Nasal Cannula 1.00 10/14/20 23:00 124 20 123/77 (92) 94 Nasal Cannula 1.00 10/14/20 22:00 107 14 142/81 (101) 92 Nasal Cannula 1.00 10/14/20 21:00 112 17 139/83 (101) 92 Nasal Cannula 1.00 10/14/20 20:30 97 Nasal Cannula 1.00 10/14/20 20:00 138 22 124/94 (104) 97 Nasal Cannula 1.00 10/14/20 19:42 35.2 138 20 136/93 (107) 98 Nasal Cannula 1.00 10/14/20 19:00 137 10/14/20 19:00 137 15 136/93 (107) 94 Nasal Cannula 1.00 10/14/20 18:42 97 Room Air 10/14/20 18:29 Room Air 10/14/20 18:00 134 26 99 Nasal Cannula 1.00 10/14/20 17:00 138 18 137/87 (104) 97 Nasal Cannula 1.00 10/14/20 16:00 126 12 127/105 (112) 96 Nasal Cannula 1.00 10/14/20 15:10 96 Vapotherm 20.00 35 10/14/20 15:00 111 12 140/96 (111) 95 Nasal Cannula 3.00 10/14/20 14:09 Nasal Cannula 3.00 10/14/20 14:00 101 19 129/91 (104) 98 Vapotherm 25.00 50.00 10/14/20 13:00 112 19 121/89 (100) 100 Vapotherm 25.00 50.00 10/14/20 13:00 36.6 112 18 121/89 99 Vapotherm 20.00 40 10/14/20 12:57 114 10/14/20 12:00 124 18 126/93 (104) 97 Vapotherm 25.00 50.00 10/14/20 11:45 36.7 124 18 110/96 96 Vapotherm 20.00 40 10/14/20 11:35 36.5 112 18 121/91 96 Vapotherm 20.00 40 10/14/20 11:00 128 21 106/76 (86) 98 Vapotherm 25.00 50.00 10/14/20 10:00 124 19 122/76 (91) 100 Vapotherm 25.00 50.00 10/14/20 09:00 124 20 112/91 (98) 100 Vapotherm 25.00 50.00 10/14/20 09:00 92 Vapotherm 20.00 40 10/14/20 08:00 126 16 129/73 (91) 100 Vapotherm 25.00 50.00 10/14/20 07:05 100 Vapotherm 25.00 40 10/14/20 07:00 93 20 121/88 (99) 100 Vapotherm 25.00 50.00 10/14/20 07:00 114 10/14/20 06:00 118 18 131/89 (103) 99 Vapotherm 25.00 50.00 I & O 10/15/20 07:00 Intake Total 1350 ml Balance 1350 ml Height & Weight Height: 5'5.00" Weight: 155lbs. 6.0oz. 70.568948jt; 24.00 BMI Method:Actual General Appearance: No Apparent Distress, WD/WN, Chronically ill HEENT: Normal ENT Inspection, Pharynx Normal Neck: Non Tender Respiratory: Lungs Clear Cardiovascular: Irregularly Irregular, Tachycardia Capillary Refill: Less Than 3 Seconds Extremity: Normal Inspection, No Pedal Edema Neurologic/Psychiatric: Alert, Oriented x3, Depressed Affect, Disoriented Skin: Normal Color, Warm/Dry Results Lab Laboratory Tests 10/13/20 05:27 10/14/20 03:25 10/15/20 01:10 Assessment/Plan Assessment/Plan hypoxia with COVID 19 -COVID is positive -Currently requiring 3liter NC -Start Decadron -Repeat labs -Multani cultures -Check Flu GIB -Protonix BID -Surgery following -LR at 75 currently KATE BELTRÁN DO Oct 15, 2020 05:26
[2020-10-15] MEDS ORDERED: KCL 20 MEQ TAB (K-DUR) PO SCH (06:00)
[2020-10-15] MEDS ORDERED: MAGNESIUM 1 GM/100 ML IVPB 100 ML IV SCH (06:00)
[2020-10-15] MEDS ORDERED: POTASSIUM CL 10MEQ/50ML IVPB 50 ML IV SCH (06:00)
--- NOTE | 2020-10-15 07:15 | Diagnostic Imaging Report ---
Indication: Dyspnea. Followup COVID pneumonia. Comparison: 10/14/2020. Discussion: Single portable upright view of the chest was obtained. Moderate left pleural effusion is increased. Mild cardiomegaly is stable. Infiltrates are increased bilaterally, likely worsening viral pneumonia. No pneumothorax or osseous abnormality. Impression: 1. Worsening bilateral infiltrates and left effusion. Dictated by: Dictated on workstation # [id number]
[2020-10-15] MEDS: SUCRALFATE 1 GM (CARAFATE) TAB PO SCH ×4 (08:21→20:26)
[2020-10-15] MEDS: SENNA W/DOCUSATE (SENOKOT S) TABLET PO SCH ×2 (08:21→20:26)
[2020-10-15] MEDS: PANTOPRAZOLE 40 MG (PROTONIX) VIAL IV SCH ×2 (08:21→20:25)
[2020-10-15] MEDS ORDERED: SODIUM PHOSPHATE INJ 30 MM in NS (IVPB) 250 ML INJ ONE (09:00)
--- NOTE | 2020-10-15 10:23 | Progress Note ---
Subjective Date Seen by a Provider: Oct 15, 2020 Time Seen by a Provider: 10:00 Subjective/Events-last exam doing well. exertional SOB. no fever/chills. hb stable Focused Exam Lactate Level 10/14/20 07:03: Lactic Acid Level 1.16 Objective Exam Vital Signs Date Time Temp Pulse Resp B/P (MAP) Pulse Ox O2 Delivery O2 Flow Rate FiO2 10/15/20 09:00 112 11 137/93 (108) 98 Nasal Cannula 3.00 10/15/20 08:20 35.6 10/15/20 08:00 115 19 140/97 (111) 93 Nasal Cannula 3.00 10/15/20 08:00 100 Nasal Cannula 3.00 10/15/20 07:00 105 10/15/20 07:00 103 19 132/97 (109) 93 Nasal Cannula 3.00 10/15/20 06:51 95 Nasal Cannula 3.50 10/15/20 06:00 125 18 117/72 (87) 92 Nasal Cannula 3.00 10/15/20 05:00 125 20 129/72 (91) 92 Nasal Cannula 3.00 10/15/20 04:00 112 21 125/82 (96) 92 Nasal Cannula 3.00 10/15/20 03:00 116 22 123/86 (98) 91 Nasal Cannula 3.00 10/15/20 02:14 94 Nasal Cannula 3.50 10/15/20 02:00 102 22 131/92 (105) 90 Nasal Cannula 3.00 10/15/20 01:13 35.6 10/15/20 01:00 114 19 93 Nasal Cannula 3.00 10/15/20 01:00 111 10/15/20 00:00 113 20 119/102 (108) 91 Nasal Cannula 1.00 10/14/20 23:00 124 20 123/77 (92) 94 Nasal Cannula 1.00 10/14/20 22:00 107 14 142/81 (101) 92 Nasal Cannula 1.00 10/14/20 21:00 112 17 139/83 (101) 92 Nasal Cannula 1.00 10/14/20 20:30 97 Nasal Cannula 1.00 10/14/20 20:00 138 22 124/94 (104) 97 Nasal Cannula 1.00 10/14/20 19:42 35.2 138 20 136/93 (107) 98 Nasal Cannula 1.00 10/14/20 19:00 137 10/14/20 19:00 137 15 136/93 (107) 94 Nasal Cannula 1.00 10/14/20 18:42 97 Room Air 10/14/20 18:29 Room Air 10/14/20 18:00 134 26 99 Nasal Cannula 1.00 10/14/20 17:00 138 18 137/87 (104) 97 Nasal Cannula 1.00 10/14/20 16:00 126 12 127/105 (112) 96 Nasal Cannula 1.00 10/14/20 15:10 96 Vapotherm 20.00 35 10/14/20 15:00 111 12 140/96 (111) 95 Nasal Cannula 3.00 10/14/20 14:09 Nasal Cannula 3.00 10/14/20 14:00 101 19 129/91 (104) 98 Vapotherm 25.00 50.00 10/14/20 13:00 112 19 121/89 (100) 100 Vapotherm 25.00 50.00 10/14/20 13:00 36.6 112 18 121/89 99 Vapotherm 20.00 40 10/14/20 12:57 114 10/14/20 12:00 124 18 126/93 (104) 97 Vapotherm 25.00 50.00 10/14/20 11:45 36.7 124 18 110/96 96 Vapotherm 20.00 40 10/14/20 11:35 36.5 112 18 121/91 96 Vapotherm 20.00 40 10/14/20 11:00 128 21 106/76 (86) 98 Vapotherm 25.00 50.00 I & O 10/15/20 07:00 Intake Total 1450 ml Balance 1450 ml Capillary Refill : Less Than 3 Seconds General Appearance: No Apparent Distress HEENT: PERRL/EOMI Neck: Full Range of Motion Respiratory: Chest Non Tender, Normal Breath Sounds, Decreased Breath Sounds Cardiovascular: Regular Rate, Rhythm Gastrointestinal: normal bowel sounds, non tender, soft Extremity: Normal Capillary Refill Neurologic/Psychiatric: Alert, Oriented x3 Skin: Normal Color Lymphatic: No Adenopathy Results Lab Laboratory Tests 10/15/20 01:10: White Blood Count 7.5, Red Blood Count 3.20L, Hemoglobin 8.9#L, Hematocrit 29L, Mean Corpuscular Volume 90, Mean Corpuscular Hemoglobin 28, Mean Corpuscular Hemoglobin Concent 31L, Red Cell Distribution Width 17.1H, Platelet Count 243, Mean Platelet Volume 10.0, Immature Granulocyte % (Auto) 1, Neutrophils (%) (Auto) 92H, Lymphocytes (%) (Auto) 4L, Monocytes (%) (Auto) 4, Eosinophils (%) (Auto) 0, Basophils (%) (Auto) 0, Neutrophils # (Auto) 6.9, Lymphocytes # (Auto) 0.3L, Monocytes # (Auto) 0.3, Eosinophils # (Auto) 0.0, Basophils # (Auto) 0.0, Immature Granulocyte # (Auto) 0.0, Sodium Level 143, Potassium Level 4.1, Chloride Level 117H, Carbon Dioxide Level 17L, Anion Gap 9, Blood Urea Nitrogen 19H, Creatinine 0.97, Estimat Glomerular Filtration Rate 55, BUN/Creatinine Ratio 20, Glucose Level 142H, Calcium Level 8.4L, Phosphorus Level 2.0L, Magnesium Level 2.0 Microbiology 10/11/20 Influenza Types A,B Antigen (JENN) - Final, Complete Assessment/Plan Assessment/Plan Assess & Plan/Chief Complaint anemia, upper GI bleed, covid19 cont conservative management. ambulate. diet as tolerated. cont PPI BRIAN CEJA MD Oct 15, 2020 10:23
--- NOTE | 2020-10-15 11:12 | Progress Note - Hospitalist ---
Subjective HPI/CC On Admission Date Seen by Provider: Oct 15, 2020 Time Seen by Provider: 11:00 CC: Severe anemia presumed GIB on Plavix ASA Xarelto HPI: This is an 84yoWF clinic patient of mine who presents to ER with weakness and found to have anemia and report of black stools. Transfused 1 unit of blood last night. EGD recommended and I did speak to her about that and she is in agreement now. Updated daughter and Hospice will be started at [place] and DNR placed. Subjective/Events-last exam Patient feels well HR 90-120 Off Cardizem drip BP 145/90 so stopping IVF Transferring to 4th floor Review of Systems General: Fatigue, Malaise Focused Exam Lactate Level 10/14/20 07:03: Lactic Acid Level 1.16 Objective Exam Vital Signs Vital Signs Date Time Temp Pulse Resp B/P (MAP) Pulse Ox O2 Delivery O2 Flow Rate FiO2 10/15/20 14:49 95 Nasal Cannula 3.00 10/15/20 12:20 92 10/15/20 12:00 26 146/98 (114) 10/15/20 08:20 35.6 10/14/20 15:10 35 Capillary Refill : Less Than 3 Seconds General Appearance: No Apparent Distress, WD/WN, Chronically ill Respiratory: Chest Non Tender, Lungs Clear, Normal Breath Sounds, No Accessory Muscle Use, No Respiratory Distress Cardiovascular: No Edema, No Gallop, No JVD, No Murmur, Normal Peripheral Pulses, Irregularly Irregular, Tachycardia Neurologic/Psychiatric: Alert, Oriented x3, No Motor/Sensory Deficits, Normal Mood/Affect Results/Procedures Lab Laboratory Tests 10/15/20 01:10 Patient resulted labs reviewed. Imaging: Reviewed Imaging Report Assessment/Plan Assessment and Plan Assess & Plan/Chief Complaint Assessment: COVID + swab in prep for EGD AF w/RVR GIB Anemia requiring transfusions from GIB Advanced age DNR Plan: Hold antiplatelet therapy and OAC Isolation 10/14/20: Cardizem drip IVF COVID + DNR Hospice at [place] 10/15/20: Move to 4th floor O2 Monitor labs DC on Hospice Diagnosis/Problems Diagnosis/Problems (1) COVID-19 (2) Anemia Status: Acute Qualifiers: Anemia type: iron deficiency Iron deficiency anemia type: unspecified iron deficiency Qualified Codes: D50.9 - Iron deficiency anemia, unspecified (3) GI bleed Status: Acute Qualifiers: GI bleed type/associated pathology: unspecified gastrointestinal hemorrhage type Qualified Codes: K92.2 - Gastrointestinal hemorrhage, unspecified GORDO OVERTON DO Oct 15, 2020 11:12
--- NOTE | 2020-10-15 14:09 | Progress Note - Cardiology ---
Cardiology SOAP Progress Note Subjective: No cp or palp or syncope No shortness of breath at rest Gen malaise present No n/v/d Objective: I&O/Vital Signs 10/15/20 10/15/20 10/15/20 10/15/20 02:14 03:00 04:00 05:00 Pulse 116 112 125 Resp 22 21 20 B/P (MAP) 123/86 (98) 125/82 (96) 129/72 (91) Pulse Ox 94 91 92 92 O2 Delivery Nasal Cannula Nasal Cannula Nasal Cannula Nasal Cannula O2 Flow Rate 3.50 3.00 3.00 3.00 10/15/20 10/15/20 10/15/20 10/15/20 06:00 06:51 07:00 07:00 Pulse 125 103 105 Resp 18 19 B/P (MAP) 117/72 (87) 132/97 (109) Pulse Ox 92 95 93 O2 Delivery Nasal Cannula Nasal Cannula Nasal Cannula O2 Flow Rate 3.00 3.50 3.00 10/15/20 10/15/20 10/15/20 10/15/20 08:00 08:00 08:20 09:00 Temp 35.6 Pulse 115 112 Resp 19 11 B/P (MAP) 140/97 (111) 137/93 (108) Pulse Ox 100 93 98 O2 Delivery Nasal Cannula Nasal Cannula Nasal Cannula O2 Flow Rate 3.00 3.00 3.00 10/15/20 10/15/20 10/15/20 10:00 12:00 12:20 Pulse 118 110 92 Resp 20 26 B/P (MAP) 131/91 (104) 146/98 (114) Pulse Ox 94 97 O2 Delivery Nasal Cannula Nasal Cannula O2 Flow Rate 3.00 3.00 10/15/20 00:00 Intake Total 1150 ml Balance 1150 ml Weight (Pounds): 155 Weight (Ounces): 6.0 Weight (Calculated Kilograms): 70.519505 Constitutional: AAO x 3, well-developed, well-nourished Respiratory: other (fair to good, bilateral air entry, diminished at the bases) Cardiovascular: irregularly irregular, S1 and S2, systolic murmur (soft LOBO at card base) Gastrointestional: No tender; soft; No guarding, No rebound; audible bowel sounds Extremities: No clubbing, No cyanosis, No significant edema Neurologic/Psychiatric: oriented x 3, other (Moves all limbs equally) Skin: No rash on exposed areas, No ulcerations on exposed areas Results/Procedures: Labs Laboratory Tests 10/15/20 01:10: White Blood Count 7.5, Red Blood Count 3.20L, Hemoglobin 8.9#L, Hematocrit 29L, Mean Corpuscular Volume 90, Mean Corpuscular Hemoglobin 28, Mean Corpuscular Hemoglobin Concent 31L, Red Cell Distribution Width 17.1H, Platelet Count 243, Mean Platelet Volume 10.0, Immature Granulocyte % (Auto) 1, Neutrophils (%) (Auto) 92H, Lymphocytes (%) (Auto) 4L, Monocytes (%) (Auto) 4, Eosinophils (%) (Auto) 0, Basophils (%) (Auto) 0, Neutrophils # (Auto) 6.9, Lymphocytes # (Auto) 0.3L, Monocytes # (Auto) 0.3, Eosinophils # (Auto) 0.0, Basophils # (Auto) 0.0, Immature Granulocyte # (Auto) 0.0, Sodium Level 143, Potassium Level 4.1, Chloride Level 117H, Carbon Dioxide Level 17L, Anion Gap 9, Blood Urea Nitrogen 19H, Creatinine 0.97, Estimat Glomerular Filtration Rate 55, BUN/Creatinine Ratio 20, Glucose Level 142H, Calcium Level 8.4L, Phosphorus Level 2.0L, Magnesium Level 2.0 Microbiology 10/11/20 Influenza Types A,B Antigen (JENN) - Final, Complete Laboratory Tests 10/14/20 03:25 10/15/20 01:10 A/P: Assessment: Severe anemia due to GI bleed, Dr Hernandez managing COVID-19 (surgical svce has postponed endoscopy) Coronary artery disease with history of PTCA and stents to LAD in 2009 with cardiac catheterization 09/20/2013 revealing patent stents in the proximal and mid LAD; - cath in 09/2018, after NSTEMI, showed distal edge stenosis in LAD stent that was treated with Stephania 2.25 x 8 mm. - Cath on 08/01/20 showed 99% distal edge restenosis in a long LAD stented segment. This was treated with balloon angioplasty with no significant residual stenosis. Mild CAD elsewhere. LVEDP 28 mmHg Valvular heart disease followed at [facility]: h/o severe mitral regurgitation treated with percutaneous transcatheter repair of the mitral valve with Dr. Hines and David at in July 2019 - repeat echo done in December 2019 showing moderate stenosis, valve area 2.5 cm with severe regurgitation. Ejection fraction 35-40 percent. PA pressure 45-50 mmHg H/O Atrial fibrillation with rapid ventricular rate - EROS with successful cardioversion August 2017 - currently a-fib with uncontrolled rate - stroke prophylaxis with rivaroxaban Multiple medication intolerances: - Intolerant to amiodarone secondary to elevated LFTs and increased fatigue. - H/o intolerance to sotalol due to QT prolongation. - H/o Multaq tolerance only on once-a-day dosing. ILR in place - monitored her Dr. Medina Hypertension Hyperlipidemia Mild bilateral carotid artery stenosis. Last ultrasound was done in July 2019 Osteoporosis. CKD 3 Plan: Complex management due to multiple comorbidities and unstable symptoms Advise resumption of OAC as soon as possible, once source of bleeding has been determined and treated, d/t risk of stroke Low dose ASA qod to be resumed because of h/o cor stents (currently not on any anticoag or antiplatelet therapy because of GI bleed requiring transfusions) Monitor lab closely Replace electrolytes as indicated Med Svce managing COVID and anemia DEANNA CHACKO MD FACP FAC CCDS Oct 15, 2020 14:09
[2020-10-15] MEDS: MIRTAZAPINE 15 MG (REMERON) TAB PO SCH (20:26)
[2020-10-15] MEDS: dilTIAZem120 MG (CARDIZEM CD) CAP PO SCH (20:26)
[2020-10-16] MEDS: RT-ALBUTEROL INHALER HFA (VENTOLIN HFA) 18 GM IH SCH ×4 (02:19→21:02)
[2020-10-16] MEDS: LACTATED RINGERS 1,000 ML IV SCH (04:13)
[2020-10-16 07:03] LABS: BASOPHILS % (AUTO) 0 % (0-10); EOSINOPHILS % (AUTO) 0 % (0-10); HEMATOCRIT 31 % (35-52); HEMOGLOBIN 9.5 g/dL (11.5-16.0); LYMPHOCYTES # (AUTO) 0.6 10^3/uL (1.0-4.0); LYMPHOCYTES % (AUTO) 4 % (12-44); MEAN CORPUSCULAR HEMOGLOBIN 28 pg (25-34); MEAN CORPUSCULAR HGB CONC 31 g/dL (32-36); MEAN CORPUSCULAR VOLUME 90 fL (80-99); MONOCYTES # (AUTO) 0.9 10^3/uL (0.0-1.0); MONOCYTES % (AUTO) 6 % (0-12); NEUTROPHILS # (AUTO) 12.5 10^3/uL (1.8-7.8); NEUTROPHILS % (AUTO) 89 % (42-75); PLATELET COUNT 345 10^3/uL (130-400)
[2020-10-16 07:20] LABS: ALBUMIN 3.4 GM/DL (3.2-4.5); BILIRUBIN,TOTAL 0.5 MG/DL (0.1-1.0); CALCIUM 8.9 MG/DL (8.5-10.1); CREATININE SERUM 1.17 MG/DL (0.60-1.30); POTASSIUM 3.9 MMOL/L (3.6-5.0); TOTAL PROTEIN 5.8 GM/DL (6.4-8.2)
[2020-10-16 07:29] LABS: ANISOCYTOSIS MODERATE; BAND NEUTROPHILS 1 %; HYPOCHROMASIA SLIGHT; LYMPHOCYTES % (MANUAL) 3 %; MONOCYTES % (MANUAL) 3 %; NEUTROPHILS % (MANUAL) 93 %; POIKILOCYTOSIS SLIGHT
[2020-10-16 07:30] LABS: ACANTHOCYTES SLIGHT; BURR CELLS SLIGHT; ELLIPT/OVALOCYTES MODERATE
[2020-10-16] MEDS ORDERED: ASPIRIN E.C. 81 MG (ECOTRIN) TAB PO SCH (09:00)
[2020-10-16] MEDS: PANTOPRAZOLE 40 MG (PROTONIX) VIAL IV SCH ×2 (09:28→21:00)
[2020-10-16] MEDS: SENNA W/DOCUSATE (SENOKOT S) TABLET PO SCH ×2 (09:28→21:00)
[2020-10-16] MEDS: SUCRALFATE 1 GM (CARAFATE) TAB PO SCH ×4 (09:28→21:00)
[2020-10-16] MEDS ORDERED: DIGOXIN 0.25 MG/ML (LANOXIN) 2 ML AMP IV NR (10:30)
--- NOTE | 2020-10-16 10:36 | Progress Note - Cardiology ---
Cardiology SOAP Progress Note Subjective: Sitting up in recliner at the bedside No c/o CP Reports SOB and palpitations with exertion Objective: I&O/Vital Signs 10/16/20 10/16/20 10/16/20 10/16/20 01:00 02:19 04:00 06:34 Temp 36.2 Pulse 118 114 113 Resp 17 B/P (MAP) 122/68 (86) Pulse Ox 95 100 O2 Delivery Nasal Cannula Nasal Cannula O2 Flow Rate 3.00 3.00 10/16/20 10/16/20 10/16/20 08:00 08:00 09:55 Temp 35.8 Pulse 136 Resp 18 B/P (MAP) 160/95 (116) Pulse Ox 98 96 O2 Delivery Nasal Cannula Nasal Cannula Nasal Cannula O2 Flow Rate 3.00 3.00 2.00 10/16/20 00:00 Intake Total 400 ml Output Total 200 ml Balance 200 ml Weight (Pounds): 155 Weight (Ounces): 6.0 Weight (Calculated Kilograms): 70.903904 Constitutional: AAO x 3, well-developed, well-nourished Respiratory: other (fair to good, bilateral air entry, diminished at the bases) Cardiovascular: irregularly irregular, tachycardia, S1 and S2, systolic murmur (soft LOBO at card base) Gastrointestional: No tender; soft; No guarding, No rebound; audible bowel sounds Extremities: No clubbing, No cyanosis, No significant edema Neurologic/Psychiatric: oriented x 3, other (Moves all limbs equally) Skin: No rash on exposed areas, No ulcerations on exposed areas Results/Procedures: Labs Laboratory Tests 10/16/20 06:45: White Blood Count 14.0H, Red Blood Count 3.46L, Hemoglobin 9.5L, Hematocrit 31L, Mean Corpuscular Volume 90, Mean Corpuscular Hemoglobin 28, Mean Corpuscular Hemoglobin Concent 31L, Red Cell Distribution Width 17.6H, Platelet Count 345, Mean Platelet Volume 10.0, Immature Granulocyte % (Auto) 0, Neutrophils (%) (Auto) 89H, Lymphocytes (%) (Auto) 4L, Monocytes (%) (Auto) 6, Eosinophils (%) (Auto) 0, Basophils (%) (Auto) 0, Neutrophils # (Auto) 12.5H, Lymphocytes # (Auto) 0.6L, Monocytes # (Auto) 0.9, Eosinophils # (Auto) 0.0, Basophils # (Auto) 0.0, Immature Granulocyte # (Auto) 0.1, Neutrophils % (Manual) 93, Lymphocytes % (Manual) 3, Monocytes % (Manual) 3, Band Neutrophils 1, Hyp ochromasia SLIGHT, Poikilocytosis SLIGHT, Anisocytosis MODERATE, [place] Cells SLIGHT, Elliptocytes MODERATE, Acanthocytes SLIGHT, Sodium Level 145, Potassium Level 3.9, Chloride Level 116H, Carbon Dioxide Level 17L, Anion Gap 12, Blood Urea Nitrogen 27H, Creatinine 1.17, Estimat Glomerular Filtration Rate 44, BUN/Creatinine Ratio 23, Glucose Level 114H, Calcium Level 8.9, Corrected Calcium 9.4, Total Bilirubin 0.5, Aspartate Amino Transf (AST/SGOT) 40H, Alanine Aminotransferase (ALT/SGPT) 42, Alkaline Phosphatase 74, Total Protein 5.8L, Albumin 3.4 Microbiology 10/14/20 Blood Culture - Preliminary, Resulted No growth 10/11/20 Influenza Types A,B Antigen (JENN) - Final, Complete A/P: Assessment: Severe anemia due to GI bleed, Dr Hernandez managing COVID-19 (surgical svce has postponed endoscopy) Coronary artery disease with history of PTCA and stents to LAD in 2009 with cardiac catheterization 09/20/2013 revealing patent stents in the proximal and mid LAD; - cath in 09/2018, after NSTEMI, showed distal edge stenosis in LAD stent that was treated with Stephania 2.25 x 8 mm. - Cath on 08/01/20 showed 99% distal edge restenosis in a long LAD stented segment. This was treated with balloon angioplasty with no significant residual stenosis. Mild CAD elsewhere. LVEDP 28 mmHg Valvular heart disease followed at [facility]: h/o severe mitral regurgitation treated with percutaneous transcatheter repair of the mitral valve with Dr. Hines and David at [facility] in July 2019 - repeat echo done in December 2019 showing moderate stenosis, valve area 2.5 cm with severe regurgitation. Ejection fraction 35-40 percent. PA pressure 45-50 mmHg H/O Atrial fibrillation with rapid ventricular rate - EROS with successful cardioversion August 2017 - currently a-fib with uncontrolled rate - stroke prophylaxis with rivaroxaban Multiple medication intolerances: - Intolerant to amiodarone secondary to elevated LFTs and increased fatigue. - H/o intolerance to sotalol due to QT prolongation. - H/o Multaq tolerance only on once-a-day dosing. ILR in place - monitored her Dr. Medina Hypertension Hyperlipidemia Mild bilateral carotid artery stenosis. Last ultrasound was done in July 2019 Osteoporosis. CKD 3 Plan: Complex management due to multiple comorbidities and unstable symptoms Advise resumption of OAC as soon as possible, once source of bleeding has been determined and treated, d/t risk of stroke - H/H stable - no further blood in stools - advise restarting OAC with ok with surgical/medical services Low dose ASA qod to be resumed because of h/o cor stents (currently not on any anticoag or antiplatelet therapy because of GI bleed requiring transfusions) HR not well controlled. Will add digoxin to regimen Monitor lab closely Replace electrolytes as indicated Med Svce managing COVID and anemia Physician Assessment Physician Assessment Our evaluation of the patient is as described above We have initiated ASA in a very low dose because of the reasons noted above Initiation of anticoag to await eval for and treatment of GI bleed Continue to monitor closely PARISH BONNER Oct 16, 2020 10:36 DEANNA CHACKO MD FACP FAC CCDS Oct 16, 2020 12:08
--- NOTE | 2020-10-16 12:37 | Progress Note ---
Subjective Date Seen by a Provider: Oct 16, 2020 Time Seen by a Provider: 12:00 Subjective/Events-last exam Patient doing well Needs skilled care at [facility] prior to DC home on Hospice because she is still in quarantine and daughter is at home in same status Labs good Eating and drinking well PPI maintained No pain Review of Systems General: Fatigue Pulmonary: Dyspnea Focused Exam Lactate Level 10/14/20 07:03: Lactic Acid Level 1.16 Objective Exam Last Set of Vital Signs Vital Signs Date Time Temp Pulse Resp B/P (MAP) Pulse Ox O2 Delivery O2 Flow Rate FiO2 10/16/20 09:55 96 Nasal Cannula 2.00 10/16/20 08:00 35.8 136 18 160/95 (116) 10/14/20 15:10 35 Capillary Refill : Less Than 3 Seconds I&O Intake and Output 10/16/20 00:00 Intake Total 720 ml Output Total 200 ml Balance 520 ml Intake Oral 720 ml Output Urine Total 200 ml # Voids 4 # Bowel Movements 2 General: Alert, Oriented X3, Cooperative, No Acute Distress Lungs: Clear to Auscultation Heart: Regular Rate Neuro: Normal Gait Psych/Mental Status: Mental Status NL Results Lab Laboratory Tests 10/16/20 06:45: White Blood Count 14.0H, Red Blood Count 3.46L, Hemoglobin 9.5L, Hematocrit 31L, Mean Corpuscular Volume 90, Mean Corpuscular Hemoglobin 28, Mean Corpuscular Hemoglobin Concent 31L, Red Cell Distribution Width 17.6H, Platelet Count 345, Mean Platelet Volume 10.0, Immature Granulocyte % (Auto) 0, Neutrophils (%) (Auto) 89H, Lymphocytes (%) (Auto) 4L, Monocytes (%) (Auto) 6, Eosinophils (%) (Auto) 0, Basophils (%) (Auto) 0, Neutrophils # (Auto) 12.5H, Lymphocytes # (Auto) 0.6L, Monocytes # (Auto) 0.9, Eosinophils # (Auto) 0.0, Basophils # (Auto) 0.0, Immature Granulocyte # (Auto) 0.1, Neutrophils % (Manual) 93, Lymphocytes % (Manual) 3, Monocytes % (Manual) 3, Band Neutrophils 1, Hypochromasia SLIGHT, Poikilocytosis SLIGHT, Anisocytosis MODERATE, [place] Cells SLIGHT, Elliptocytes MODERATE, Acanthocytes SLIGHT, Sodium Level 145, Potassium Level 3.9, Chloride Level 116H, Carbon Dioxide Level 17L, Anion Gap 12, Blood Urea Nitrogen 27H, Creatinine 1.17, Estimat Glomerular Filtration Rate 44, BUN/Creatinine Ratio 23, Glucose Level 114H, Calcium Level 8.9, Corrected Calcium 9.4, Total Bilirubin 0.5, Aspartate Amino Transf (AST/SGOT) 40H, Alanine Aminotransferase (ALT/SGPT) 42, Alkaline Phosphatase 74, Total Protein 5.8L, Albumin 3.4 10/16/20 12:33: Lab Scanned Report Transfusion Reaction Form Microbiology 10/14/20 Blood Culture - Preliminary, Resulted No growth 10/11/20 Influenza Types A,B Antigen (JENN) - Final, Complete Assessment/Plan Assessment/Plan Assess & Plan/Chief Complaint Assessment: COVID + swab in prep for EGD AF w/RVR GIB Anemia requiring transfusions from GIB Advanced age DNR Plan: Hold antiplatelet therapy and OAC Isolation 10/14/20: Cardizem drip IVF COVID + DNR Hospice at DC 10/15/20: Move to 4th floor O2 Monitor labs DC on Hospice 10/16/20: DC to [facility] skilled for brief stay then DC on Hospice Diagnosis/Problems Diagnosis/Problems (1) COVID-19 (2) Anemia Status: Acute Qualifiers: Qualified Codes: D50.9 - Iron deficiency anemia, unspecified (3) GI bleed Status: Acute Qualifiers: Qualified Codes: K92.2 - Gastrointestinal hemorrhage, unspecified GORDO OVERTON DO Oct 16, 2020 12:37
--- NOTE | 2020-10-16 14:02 | Physical Therapy Evaluation ---
PT Evaluation-General Medical Diagnosis Admission Date Oct 11, 2020 at 16:05 Medical Diagnosis: anemia/GI bleed/Covid (+) Onset Date: Oct 11, 2020 Therapy Diagnosis Therapy Diagnosis: debility Height/Weight Height (Feet): 5 Height (Inches): 5.00 Weight (Pounds): 155 Weight (Ounces): 6.0 Precautions Precautions/Isolations: Airborne Isolation, Fall Prevention Referral Physician: Mary Reason for Referral: Evaluation/Treatment Medical History Pertinent Medical History: Atrial Fib, CAD, HTN Current History EMS secondary to "no energy" Reviewed History: Yes Social History Home: Single Level Current Living Status: Other Family Prior Prior Level of Function SCALE: Activities may be completed with or without assistive devices. 8-Dmxegcparv-vdwocmn completes the activity by him/herself with no assistance from a helper. 5-Set-up or Clean-up Assistance-helper sets up or cleans up; patient completes activity. [place] assists only prior to or following the activity. 4-Supervision or Touching Assistance-helper provides verbal cues and/or touching/steadying and/or contact guard assistance as patient completes activity. Assistance may be provided throughout the activity or intermittently. 3-Partial/Moderate Assistance-helper does LESS THAN HALF the effort. Gustavus lifts, holds or supports trunk or limbs, but provides less than half the effort. 2-Substantial/Maximal Assistance-helper does MORE THAN HALF the effort. [place] lifts or holds trunk or limbs and provides more than half the effort. 7-Mlwamohyh-tifsiy does ALL the effort. Patient does none of the effort to complete the activity. Or, the assistance of 2 or more helpers is required for the patient to complete the activity. If activity was not attempted, code reason: 7-Patient Refused. 9-Not Applicable-not attempted and the patient did not perform the activity before the current illness, exacerbation or injury. 10-Not Attempted due to Environmental Limitations-(lack of equipment, weather restraints, etc.). 88-Not Attempted due to Medical Conditions or Safety Concerns. Bed Mobility: 6 Transfers (B,C,W/C): 6 Gait: 6 Stairs: 6 Indoor Mobility (Ambulation): Independent Stairs: Independent Prior Devices Use: None PT Evaluation-Current Subjective Patient agrees to PT. Patient reports she is up independently in room without difficulty and plans to go home tomorrow. Objective Patient Orientation: Normal For Age ROM/Strength ROM Lower Extremities bilateral LE WFL Strength Lower Extremities 4/5 grossly bilateral LE Integumentary/Posture Integumentary refer to nursing notes Bowel Incontinence: No Bladder Incontinence: No Posture kyphotic Neuromuscular (Tone, Coordination, Reflexes) grossly intact Sensory Vision: Functional Hearing: Functional Transfers Roll Left to Right (QC): 6 Sit to Lying (QC): 6 Lying to Sitting/Side of Bed(Q: 6 Sit to Stand (QC): 6 Chair/Gor-gc-Nfjxs Xfer(QC): 6 Toilet Transfer (QC): 6 Gait Does the Patient Walk?: Yes Mode of Locomotion: Walk Anticipated Mode of Locomotion: Walk Walk 10 feet (QC): 6 Walk 50 ft with 2 Turns(QC): 6 Walk 150 ft (QC): 6 Distance: 180' Gait Assistive Device: None Comments/Gait Description functional/no deviation Balance Sitting Static: Normal Sitting Dynamic: Normal Standing Static: Normal Standing Dynamic: Normal Assessment/Needs 84 y.o. female, is currently at [facility] with all gross motor skills and does not require skilled therapy intervention. Patient is up independently in room and report no safety concerns. Patient plans dismissal to home tomorrow. Rehab Potential: Fair PT Plan Treatment/Plan Treatment Plan: Discontinue PT, goals met Treatment Duration: Oct 16, 2020 Frequency: 1 time per week Estimated Hrs Per Day: .25 hour per day Patient and/or Family Agrees t: Yes Discharge Recommendations Therapy Discharge Recommendati: Home & Family Time/GCodes Time In: 1300 Time Out: 1316 Total Billed Treatment Time: 16 Total Billed Treatment 1 visit [facility] 16 min GIANNA LIN PT Oct 16, 2020 14:02
--- NOTE | 2020-10-16 14:09 | Occ Therapy Progress Note ---
Therapy Progress Note OT order received, chart reviewed. Spoke with PT regarding pt. Pt. is up ad sheri in room. Pt. independent with ADL skills at this time, and plans to discharge home tomorrow. Per PT screen, no OT warranted at this time. 1409 NAS CYR OT Oct 16, 2020 14:09
[2020-10-16] MEDS ORDERED: APIXABAN 2.5 MG (ELIQUIS) TABLET PO SCH (21:00)
[2020-10-16] MEDS: MIRTAZAPINE 15 MG (REMERON) TAB PO SCH (21:00)
[2020-10-16] MEDS: dilTIAZem120 MG (CARDIZEM CD) CAP PO SCH (21:00)
[2020-10-17] MEDS: RT-ALBUTEROL INHALER HFA (VENTOLIN HFA) 18 GM IH SCH ×2 (03:18→09:38)
[2020-10-17] MEDS ORDERED: DIGOXIN 0.125 MG (LANOXIN) TAB PO SCH (09:00)
[2020-10-17] MEDS: SENNA W/DOCUSATE (SENOKOT S) TABLET PO SCH (09:03)
[2020-10-17] MEDS: PANTOPRAZOLE 40 MG (PROTONIX) VIAL IV SCH (09:03)
[2020-10-17] MEDS: SUCRALFATE 1 GM (CARAFATE) TAB PO SCH ×2 (09:03→12:54)
--- NOTE | 2020-10-17 10:19 | Progress Note - Cardiology ---
Cardiology SOAP Progress Note Subjective: Sitting up in recliner at the bedside C/O LE swelling Has been up with PT, states she feels good No c/o palpitations Feels SOB is good today No c/o CP Objective: I&O/Vital Signs 10/17/20 10/17/20 10/17/20 10/17/20 03:19 06:43 08:00 08:18 Temp 35.0 Pulse 97 110 Resp 16 B/P (MAP) 139/96 (110) Pulse Ox 96 97 99 O2 Delivery Nasal Cannula Nasal Cannula Nasal Cannula O2 Flow Rate 1.00 3.00 2.50 10/17/20 09:38 Pulse Ox 97 O2 Delivery Nasal Cannula O2 Flow Rate 2.50 10/17/20 00:00 Intake Total 1680 ml Output Total 300 ml Balance 1380 ml Weight (Pounds): 155 Weight (Ounces): 6.0 Weight (Calculated Kilograms): 70.313450 Constitutional: AAO x 3, well-developed, well-nourished Respiratory: other (fair to good, bilateral air entry, diminished at the bases) Cardiovascular: irregularly irregular, tachycardia, S1 and S2, systolic murmur (soft LOBO at card base) Gastrointestional: No tender; soft; No guarding, No rebound; audible bowel sounds Extremities: No clubbing, No cyanosis; significant edema (mod bilat LE swelling) Neurologic/Psychiatric: oriented x 3, other (Moves all limbs equally) Skin: No rash on exposed areas, No ulcerations on exposed areas Results/Procedures: Labs Microbiology 10/14/20 Blood Culture - Preliminary, Resulted No growth 10/11/20 Influenza Types A,B Antigen (JENN) - Final, Complete A/P: Assessment: Severe anemia due to GI bleed, Dr Hernandez managing COVID-19 (surgical svce has postponed endoscopy) Coronary artery disease with history of PTCA and stents to LAD in 2009 with cardiac catheterization 09/20/2013 revealing patent stents in the proximal and mid LAD; - cath in 09/2018, after NSTEMI, showed distal edge stenosis in LAD stent that was treated with Stephania 2.25 x 8 mm. - Cath on 08/01/20 showed 99% distal edge restenosis in a long LAD stented segment. This was treated with balloon angioplasty with no significant residual stenosis. Mild CAD elsewhere. LVEDP 28 mmHg Valvular heart disease followed at [facility]: h/o severe mitral regurgitation treated with percutaneous transcatheter repair of the mitral valve with Dr. Hines and David at [facility] in July 2019 - repeat echo done in December 2019 showing moderate stenosis, valve area 2.5 cm w ith severe regurgitation. Ejection fraction 35-40 percent. PA pressure 45-50 mmHg H/O Atrial fibrillation with rapid ventricular rate - EROS with successful cardioversion August 2017 - currently a-fib with uncontrolled rate - stroke prophylaxis with rivaroxaban Multiple medication intolerances: - Intolerant to amiodarone secondary to elevated LFTs and increased fatigue. - H/o intolerance to sotalol due to QT prolongation. - H/o Multaq tolerance only on once-a-day dosing. ILR in place - monitored her Dr. Medina Hypertension Hyperlipidemia Mild bilateral carotid artery stenosis. Last ultrasound was done in July 2019 Osteoporosis. CKD 3 Plan: Complex management due to multiple comorbidities and unstable symptoms Advise resumption of OAC as soon as possible, once source of bleeding has been determined and treated, d/t risk of stroke - H/H stable - no further blood in stools - advise restarting OAC with ok with surgical/medical services Low dose ASA qod to be resumed because of h/o cor stents (currently not on any anticoag or antiplatelet therapy because of GI bleed requiring transfusions) HR improved with addition of Digoxin Increasing bilat LE swelling, resume home dose of Lasix with potassium replacem ent Monitor lab closely Replace electrolytes as indicated Med Svce managing COVID and anemia Physician Assessment Physician Assessment Our evaluation of the patient is as described above Initiation of anticoag to await eval for and treatment of GI bleed Continue to monitor closely PARISH BONNER [employer] Oct 17, 2020 10:19 DEANNA CHACKO MD [facility] CCDS Oct 17, 2020 15:13
[2020-10-17] MEDS ORDERED: KCL 10 MEQ TAB (MICRO K) PO NR (10:30)
[2020-10-17] MEDS ORDERED: FUROSEMIDE 40 MG (LASIX) TAB PO NR (10:30)
[2020-10-17] MEDS ORDERED: PANT40TA2 PO (11:02)
[2020-10-17] MEDS ORDERED: ALBU18HF2 IH (11:02)
[2020-10-17] MEDS ORDERED: DILT180C85 PO (11:02)
[2020-10-17] MEDS ORDERED: DIGO125T18 PO (11:02)
[2020-10-17] MEDS ORDERED: DILT-27 PO (11:02)
[2020-10-17] MEDS ORDERED: MIRT-47 PO (11:02)
[2020-10-17] MEDS ORDERED: SUCR1TAB PO (11:02)
[2020-10-17] MEDS ORDERED: APIX2.5T PO (11:02)
[2020-10-17] MEDS ORDERED: TRM50T PO (11:02)
--- NOTE | 2020-10-17 11:04 | Discharge Inst-Skilled Nursing ---
Discharge Inst-Skilled NF Reconcile Patient Problems Problems Reviewed?: Yes Chief Complaint CC: Severe anemia presumed GIB on Plavix ASA Xarelto HPI: This is an 84yoWF clinic patient of mine who presents to ER with weakness and found to have anemia and report of black stools. Transfused 1 unit of blood last night. EGD recommended and I did speak to her about that and she is in agreement now. Updated daughter and Hospice will be started at DC and DNR placed. Patient Instructions Patient Problems: GIB COVID CHF AF CAD Goal: [place] Consult/Follow Up/Orders Follow Up Appt.: Dr Hernandez and Denise Sullivan, FIGURE REFINISHER AND REPAIRER visits Skilled NF Admit to: Via [facility] Certification ([facility]) I certify that SNF services are required to be given on an inpatient basis because of the above named patient's need for fpc care on a continuing basis for the conditions(s) for which he/she was receiving inpatient hospital services prior to his/her transfer to the SNF. Halfway Facility Order: Nursing Services, Printer'S Assistant-Evaluate & Treat, Physical Therapy-Evaluate & Treat, Speech Language-Evaluate & Treat Oxygen Delivery Method: Nasal Cannula Discharge Diet: No Restrictions Resuscitation Status: Do Not Resuscitate New & Resume Previous Orders New Medications: Apixaban (Eliquis) 2.5 Mg Tablet 2.5 MG PO BID for 30 Days, TAB Pantoprazole Sodium (Protonix) 40 Mg Tablet.dr 40 MG PO BID for 30 Days, TAB Albuterol Sulfate (Ventolin Hfa) 18 Gm Hfa.aer.ad 0 GM IH RTQ6HR for 30 Days, GM Digoxin (Digox) 125 Mcg Tablet 0.125 MG PO DAILY, #30 TAB Diltiazem HCl (Diltiazem 24Hr ER) 120 Mg Cap.er.24h 120 MG PO HS for 30 Days, CAP Diltiazem HCl (Diltiazem 24Hr ER) 180 Mg Cap.er.24h 360 MG PO DAILY, #30 CAP Mirtazapine (Mirtazapine) 15 Mg Tab.rapdis 15 MG PO HS for 30 Days, TAB Sucralfate (Sucralfate) 1 Gm Tablet 1 GM PO QID for 30 Days, TAB Tramadol HCl (Tramadol HCl) 50 Mg Tablet 50 MG PO TID PRN for PAIN-MODERATE (5-7), #20 TAB Continued Medications: Ascorbate Calcium (Vitamin C) 500 Mg Tablet 500 MG PO DAILY, TAB Aspirin (Aspirin EC) 81 Mg Tablet.dr 81 MG PO 1200, TAB Cholecalciferol (Vitamin D3) (Vitamin D3) 125 Mcg Capsule 125 MCG PO 1200, CAP Cranberry Extract (Cranberry) 500 Mg Tablet 500 MG PO 1200, TAB Furosemide (Furosemide) 40 Mg Tablet 40 MG PO DAILY, TAB Potassium Chloride (K-Tab ER) 10 Meq Tablet.er 10 MEQ PO DAILY, TAB Rosuvastatin Calcium (Rosuvastatin Calcium) 5 Mg Tablet 5 MG PO 1800, TAB Discontinued Medications: Cephalexin (Cephalexin) 250 Mg Capsule 250 MG PO 1800, CAP Diltiazem HCl (Dilt-Xr) 240 Mg Cap.er.deg 240 MG PO DAILY, CAP Metoprolol Succinate (Metoprolol Succinate) 25 Mg Tab.er.24h 25 MG PO 1800, TAB [place]-3/Dha/Epa/Fish Oil (Fish Oil 500 mg Softgel) 1 Each Capsule 1 EACH PO 1200, CAP Rivaroxaban (Xarelto) 20 Mg Tablet 20 MG PO 1800, TAB Giovana Hernandez Oct 17, 2020 11:02 GIOVANA HERNANDEZ DO Oct 17, 2020 11:04
--- NOTE | 2020-10-17 11:06 | Discharge Summary ---
Diagnosis/Chief Complaint Date of Admission Oct 11, 2020 at 16:05 Date of Discharge Discharge Date: Oct 17, 2020 Discharge Diagnosis Assessment: COVID + swab in prep for EGD AF w/RVR GIB Anemia requiring transfusions from GIB Advanced age DNR Plan: Hold antiplatelet therapy and OAC Isolation 10/14/20: Cardizem drip IVF COVID + DNR Hospice at DC 10/15/20: Move to 4th floor O2 Monitor labs DC on Hospice 10/16/20: DC to [facility] skilled for brief stay then DC on Hospice Discharge Summary Discharge Physical Examination Allergies: Coded Allergies: Penicillins (Unverified Allergy, Mild, 04/19/09) Vitals & I&Os Vital Signs Date Time Temp Pulse Resp B/P (MAP) Pulse Ox O2 Delivery O2 Flow Rate FiO2 10/17/20 13:15 10/17/20 09:38 97 Nasal Cannula 2.50 10/17/20 08:18 35.0 110 16 10/14/20 15:10 35 General Appearance: Alert, Oriented X3, Cooperative Respiratory: Clear to Auscultation Cardiovascular: Regular Rate Neuro: Normal Gait Psych/Mental Status: Mental Status NL Hospital Course Was the Problem List Reviewed?: Yes Hospital course: Patient was admitted for weakness and found to have severe anemia with tarry stools. Dr Early consulted. Plavix and OAC held due to presumed PUD bleed. Cardiology consulted for AF RVR. COVID test was obtained for endoscopy prep and it was found to be positive. Isolation ensued. O2 maintained as she has at home. Transfusion successful and labs remained stable. Overall she was ready for DC to [facility] for brief stay with skilled care then DC home on Hospice. Labs (last 24 hrs) Laboratory Tests 10/11/20 14:57: White Blood Count 10.7, Red Blood Count 2.92L, Hemoglobin 8.4L, Hematocrit 27L, Mean Corpuscular Volume 94, Mean Corpuscular Hemoglobin 29, Mean Corpuscular Hemoglobin Concent 31L, Red Cell Distribution Width 16.4H, Platelet Count 406H, Mean Platelet Volume 10.1, Immature Granulocyte % (Auto) 0, Neutrophils (%) (Auto) 79H, Lymphocytes (%) (Auto) 10L, Monocytes (%) (Auto) 10, Eosinophils (%) (Auto) 1, Basophils (%) (Auto) 0, Neutrophils # (Auto) 8.4H, Lymphocytes # (Auto) 1.1, Monocytes # (Auto) 1.0, Eosinophils # (Auto) 0.1, Basophils # (Auto) 0.0, Immature Granulocyte # (Auto) 0.0, Erythrocyte Sedimentation Rate 25, Sodium Level 138, Potassium Level 3.8, Chloride Level 99, Carbon Dioxide Level 26, Anion Gap 13, Blood Urea Nitrogen 29H, Creatinine 1.33H, Estimat Glomerular Filtration Rate 38, BUN/Creatinine Ratio 22, Glucose Level 99, Calcium Level 8.6, Corrected Calcium 8.8, Magnesium Level 2.4, Total Bilirubin 0.4, Aspartate Amino Transf (AST/SGOT) 22, Alanine Aminotransferase (ALT/SGPT) 24, Alkaline Ale sphatase 69, Troponin I < 0.028, C-Reactive Protein High Sensitivity 0.06, Total Protein 6.1L, Albumin 3.7, Thyroid Stimulating Hormone (TSH) 1.72 10/11/20 15:00: Urine Color YELLOW, Urine Clarity CLEAR, Urine pH 6.5, Urine Specific [place] Level 1.015L, Urine Protein NEGATIVE, Urine Glucose (UA) NEGATIVE, Urine Ketones NEGAT ALLAN, Urine Nitrite NEGATIVE, Urine Bilirubin NEGATIVE, Urine Urobilinogen 0.2, Urine Leukocyte Esterase NEGATIVE, Urine RBC (Auto) NEGATIVE, Urine RBC NONE, Urine WBC 2-5, Urine Squamous Epithelial Cells 2-5, Urine Crystals NONE, Urine Bacteria NEGATIVE, Urine Casts NONE, Urine Mucus NEGATIVE, Urine Culture Indicated NO 10/11/20 18:15: Hemoglobin 7.6L, Hematocrit 25L 10/12/20 03:00: White Blood Count 9.6, Red Blood Count 2.93L, Hemoglobin 8.4L, Hematocrit 27L, Mean Corpuscular Volume 93, Mean Corpuscular Hemoglobin 29, Mean Corpuscular Hemoglobin Concent 31L, Red Cell Distribution Width 15.9H, Platelet Count 296, Mean Platelet Volume 10.5, Immature Granulocyte % (Auto) 1, Neutrophils (%) (Auto) 72, Lymphocytes (%) (Auto) 18, Monocytes (%) (Auto) 9, Eosinophils (%) (Auto) 1, Basophils (%) (Auto) 0, Neutrophils # (Auto) 6.9, Lymphocytes # (Auto) 1.7, Monocytes # (Auto) 0.8, Eosinophils # (Auto) 0.1, Basophils # (Auto) 0.0, Immature Granulocyte # (Auto) 0.1, Sodium Level 139, Potassium Level 3.1L, Chloride Level 102, Carbon Dioxide Level 25, Anion Gap 12, Blood Urea Nitrogen 33H, Creatinine 1.45H, Estimat Glomerular Filtration Rate 34, BUN/Creatinine Ratio 23, Glucose Level 144H, Calcium Level 7.9L, Corrected Calcium 8.6, Magnesium Level 2.3, Total Bilirubin 0.7, Aspartate Amino Transf (AST/SGOT) 20, Alanine Aminotransferase (ALT/SGPT) 20, Alkaline Phosphatase 58, Total Protein 5.2L, Albumin 3.1L, Phosphorus Level 3.0 10/13/20 05:27: White Blood Count 11.4H, Red Blood Count 2.78L, Hemoglobin 7.9L, Hematocrit 26L, Mean Corpuscular Volume 93, Mean Corpuscular Hemoglobin 28, Mean Corpuscular Hemoglobin Concent 31L, Red Cell Distribution Width 16.3H, Platelet Count 261, Mean Platelet Volume 10.0, Sodium Level 141, Potassium Level 3.3L, Chloride Level 111H, Carbon Dioxide Level 22, Anion Gap 8, Blood Urea Nitrogen 25H, Creatinine 1.02, Estimat Glomerular Filtration Rate 52, BUN/Creatinine Ratio 25, Glucose Level 98, Calcium Level 7.5L, Corrected Calcium 8.4L, Total Bilirubin 0.5, Aspartate Amino Transf (AST/SGOT) 17, Alanine Aminotransferase (ALT/SGPT) 17, Alkaline Phosphatase 57, Total Protein 4.9L, Albumin 2.9L 10/13/20 09:09: Coronavirus 2019 ([facility]) Positive 10/14/20 03:25: White Blood Count 7.7, Red Blood Count 2.63L, Hemoglobin 7.3L, Hematocrit 25L, Mean Corpuscular Volume 94, Mean Corpuscular Hemoglobin 28, Mean Corpuscular Hemoglobin Concent 30L, Red Cell Distribution Width 16.3H, Platelet Count 227, Mean Platelet Volume 10.2, Sodium Level 142, Potassium Level 3.6, Chloride Level 116H, Carbon Dioxide Level 18L, Anion Gap 8, Blood Urea Nitrogen 21H, Creatinine 0.94, Estimat Glomerular Filtration Rate 57, BUN/Creatinine Ratio 22, Glucose Level 99, Calcium Level 7.8L, Corrected Calcium 8.8, Total Bilirubin 0.2, Aspartate Amino Transf (AST/SGOT) 18, Alanine Aminotransferase (ALT/SGPT) 17, Alkaline Phosphatase 54, Total Protein 4.7L, Albumin 2.8L, Immature Granulocyte % (Auto) 0, Neutrophils (%) (Auto) 72, Lymphocytes (%) (Auto) 16, Monocytes (%) (Auto) 9, Eosinophils (%) (Auto) 2, Basophils (%) (Auto) 0, Neutrophils # (Auto) 5.6, Lymphocytes # (Auto) 1.2, Monocytes # (Auto) 0.7, Eosinophils # (Auto) 0.2, Basophils # (Auto) 0.0, Immature Granulocyte # (Auto) 0.0, B-Type Natriuretic Peptide 573.5H, Procalcitonin 0.31H 10/14/20 05:58: Blood Gas Puncture Site RGHT RAD, Blood Gas Patient Temperature 97.9, Arterial Blood pH 7.40, Arterial Blood Partial Pressure CO2 32L, Arterial Blood Partial Pressure O2 131H, Arterial Blood HCO3 19L, Arterial Blood Total CO2 20.4L, Arterial Blood Oxygen Saturation 98, Arterial Blood Base Excess -4.6L, Red Test POS, Blood Gas Ventilator Setting NO, Blood Gas Inspired Oxygen 50% 10/14/20 07:03: Lactic Acid Level 1.16 10/15/20 01:10: White Blood Count 7.5, Red Blood Count 3.20L, Hemoglobin 8.9#L, Hematocrit 29L, Mean Corpuscular Volume 90, Mean Corpuscular Hemoglobin 28, Mean Corpuscular Hemoglobin Concent 31L, Red Cell Distribution Width 17.1H, Platelet Count 243, Mean Platelet Volume 10.0, Immature Granulocyte % (Auto) 1, Neutrophils (%) (Auto) 92H, Lymphocytes (%) (Auto) 4L, Monocytes (%) (Auto) 4, Eosinophils (%) (Auto) 0, Basophils (%) (Auto) 0, Neutrophils # (Auto) 6.9, Lymphocytes # (Auto) 0.3L, Monocytes # (Auto) 0.3, Eosinophils # (Auto) 0.0, Basophils # (Auto) 0.0, Immature Granulocyte # (Auto) 0.0, Sodium Level 143, Potassium Level 4.1, Chloride Level 117H, Carbon Dioxide Level 17L, Anion Gap 9, Blood Urea Nitrogen 19H, Creatinine 0.97, Estimat Glomerular Filtration Rate 55, BUN/Creatinine Ratio 20, Glucose Level 142H, Calcium Level 8.4L, Phosphorus Level 2.0L, Magnesium Level 2.0 10/16/20 06:45: White Blood Count 14.0H, Red Blood Count 3.46L, Hemoglobin 9.5L, Hematocrit 31L, Mean Corpuscular Volume 90, Mean Corpuscular Hemoglobin 28, Mean Corpuscular Hemoglobin Concent 31L, Red Cell Distribution Width 17.6H, Platelet Count 345, Mean Platelet Volume 10.0, Immature Granulocyte % (Auto) 0, Neutrophils (%) (Auto) 89H, Lymphocytes (%) (Auto) 4L, Monocytes (%) (Auto) 6, Eosinophils (%) (Auto) 0, Basophils (%) (Auto) 0, Neutrophils # (Auto) 12.5H, Lymphocytes # (Auto) 0.6L, Monocytes # (Auto) 0.9, Eosinophils # (Auto) 0.0, Basophils # (Auto) 0.0, Immature Granulocyte # (Auto) 0.1, Sodium Level 145, Potassium Level 3.9, Chloride Level 116H, Carbon Dioxide Level 17L, Anion Gap 12, Blood Urea Nitrogen 27H, Creatinine 1.17, Estimat Glomerular Filtration Rate 44, BUN/Creatinine Ratio 23, Glucose Level 114H, Calcium Level 8.9, Neutrophils % (M anual) 93, Lymphocytes % (Manual) 3, Monocytes % (Manual) 3, Band Neutrophils 1, Hypochromasia SLIGHT, Poikilocytosis SLIGHT, Anisocytosis MODERATE, Jody Cells SLIGHT, Elliptocytes MODERATE, Acanthocytes SLIGHT, Corrected Calcium 9.4, Total Bilirubin 0.5, Aspartate Amino Transf (AST/SGOT) 40H, Alanine Aminotransferase (ALT/SGPT) 42, Alkaline Phosphatase 74, Total Protein 5.8L, Albumin 3.4 10/16/20 12:33: Lab Scanned Report Transfusion Reaction Form Microbiology 10/14/20 Blood Culture - Preliminary, Resulted No growth 10/11/20 Influenza Types A,B Antigen (JENN) - Final, Complete Pending Labs Microbiology Date/Time Source Procedure Growth Status 10/14/20 07:26 Peripheral Left Wrist Blood Culture - Preliminary No growth Resulted 10/14/20 07:20 Peripheral Rt Ac Blood Culture - Preliminary No growth Resulted 10/11/20 15:06 Nasopharynx Influenza Types A,B Antigen (JENN) - Final Complete Laboratory Tests 10/11/20 14:57: White Blood Count 10.7, Red Blood Count 2.92, Hemoglobin 8.4, Hematocrit 27, Mean Corpuscular Volume 94, Mean Corpuscular Hemoglobin 29, Mean Corpuscular Hemoglobin Concent 31, Red Cell Distribution Width 16.4, Platelet Count 406, Mean Platelet Volume 10.1, Immature Granulocyte % (Auto) 0, Neutrophils (%) (Auto) 79, Lymphocytes (%) (Auto) 10, Monocytes (%) (Auto) 10, Eosinophils (%) (Auto) 1, Basophils (%) (Auto) 0, Neutrophils # (Auto) 8.4, Lymphocytes # (Auto) 1.1, Monocytes # (Auto) 1.0, Eosinophils # (Auto) 0.1, Basophils # (Auto) 0.0, Immature Granulocyte # (Auto) 0.0, Erythrocyte Sedimentation Rate 25, Sodium Level 138, Potassium Level 3.8, Chloride Level 99, Carbon Dioxide Level 26, Anion Gap 13, Blood Urea Nitrogen 29, Creatinine 1.33, Estimat Glomerular Filtration Rate 38, BUN/Creatinine Ratio 22, Glucose Level 99, Calcium Level 8.6, Corrected Calcium 8.8, Magnesium Level 2.4, Total Bilirubin 0.4, Aspartate Amino Transf (AST/SGOT) 22, Alanine Aminotransferase (ALT/SGPT) 24, Alkaline Phosphatase 69, Troponin I < 0.028, C-Reactive Protein High Sensitivity 0.06, Total Protein 6.1, Albumin 3.7, Thyroid Stimulating Hormone (TSH) 1.72 10/11/20 15:00: Urine Color YELLOW, Urine Clarity CLEAR, Urine pH 6.5, Urine Specific [place] Level 1.015, Urine Protein NEGATIVE, Urine Glucose (UA) NEGATIVE, Urine Ketones NEGATIVE, Urine Nitrite NEGATIVE, Urine Bilirubin NEGATIVE, Urine Urobilinogen 0.2, Urine Leukocyte Esterase NEGATIVE, Urine RBC (Auto) NEGATIVE, Urine RBC NONE, Urine WBC 2-5, Urine Squamous Epithelial Cells 2-5, Urine Crystals NONE, Urine Bacteria NEGATIVE, Urine Casts NONE, Urine Mucus NEGATIVE, Urine Culture Indicated NO 10/11/20 18:15: Hemoglobin 7.6, Hematocrit 25 10/12/20 03:00: White Blood Count 9.6, Red Blood Count 2.93, Hemoglobin 8.4, Hematocrit 27, Mean Corpuscular Volume 93, Mean Corpuscular Hemoglobin 29, Mean Corpuscular Hemoglobin Concent 31, Red Cell Distribution Width 15.9, Platelet Count 296, Mean Platelet Volume 10.5, Immature Granulocyte % (Auto) 1, Neutrophils (%) (Auto) 72, Lymphocytes (%) (Auto) 18, Monocytes (%) (Auto) 9, Eosinophils (%) (Auto) 1, Basophils (%) (Auto) 0, Neutrophils # (Auto) 6.9, Lymphocytes # (Auto) 1.7, Monocytes # (Auto) 0.8, Eosinophils # (Auto) 0.1, Basophils # (Auto) 0.0, Immature Granulocyte # (Auto) 0.1, Sodium Level 139, Potassium Level 3.1, Chloride Level 102, Carbon Dioxide Level 25, Anion Gap 12, Blood Urea Nitrogen 33, Creatinine 1.45, Estimat Glomerular Filtration Rate 34, BUN/Creatinine Ratio 23, Glucose Level 144, Calcium Level 7.9, Corrected Calcium 8.6, Magnesium Level 2.3, Total Bilirubin 0.7, Aspartate Amino Transf (AST/SGOT) 20, Alanine Aminotransferase (ALT/SGPT) 20, Alkaline Phosphatase 58, Total Protein 5.2, Albumin 3.1, Phosphorus Level 3.0 10/13/20 05:27: White Blood Count 11.4, Red Blood Count 2.78, Hemoglobin 7.9, Hematocrit 26, Mean Corpuscular Volume 93, Mean Corpuscular Hemoglobin 28, Mean Corpuscular Hemoglobin Concent 31, Red Cell Distribution Width 16.3, Platelet Count 261, Mean Platelet Volume 10.0, Sodium Level 141, Potassium Level 3.3, Chloride Level 111, Carbon Dioxide Level 22, Anion Gap 8, Blood Urea Nitrogen 25, Creatinine 1.02, Estimat Glomerular Filtration Rate 52, BUN/Creatinine Ratio 25, Glucose Level 98, Calcium Level 7.5, Corrected Calcium 8.4, Total Bilirubin 0.5, Aspartate Amino Transf (AST/SGOT) 17, Alanine Aminotransferase (ALT/SGPT) 17, Alkaline Phosphatase 57, Total Protein 4.9, Albumin 2.9 10/13/20 09:09: Coronavirus 2019 ([facility]) Positive 10/14/20 03:25: White Blood Count 7.7, Red Blood Count 2.63, Hemoglobin 7.3, Hematocrit 25, Mean Corpuscular Volume 94, Mean Corpuscular Hemoglobin 28, Mean Corpuscular Hemoglobin Concent 30, Red Cell Distribution Width 16.3, Platelet Count 227, Mean Platelet Volume 10.2, Sodium Level 142, Potassium Level 3.6, Chloride Level 116, Carbon Dioxide Level 18, Anion Gap 8, Blood Urea Nitrogen 21, Creatinine 0.94, Estimat Glomerular Filtration Rate 57, BUN/Creatinine Ratio 22, Glucose Level 99, Calcium Level 7.8, Corrected Calcium 8.8, Total Bilirubin 0.2, Aspartate Amino Transf (AST/SGOT) 18, Alanine Aminotransferase (ALT/SGPT) 17, Alkaline Phosphatase 54, Total Protein 4.7, Albumin 2.8, Immature Granulocyte % (Auto) 0, Neutrophils (%) (Auto) 72, Lymphocytes (%) (Auto) 16, Monocytes (%) (Auto) 9, Eosinophils (%) (Auto) 2, Basophils (%) (Auto) 0, Neutrophils # (Auto) 5.6, Lymphocytes # (Auto) 1.2, Monocytes # (Auto) 0.7, Eosinophils # (Auto) 0.2, Basophils # (Auto) 0.0, Immature Granulocyte # (Auto) 0.0, B-Type Natriuretic Peptide 573.5, Procalcitonin 0.31 10/14/20 05:58: Blood Gas Puncture Site RGHT RAD, Blood Gas Patient Temperature 97.9, Arterial Blood pH 7.40, Arterial Blood Partial Pressure CO2 32, Arterial Blood Partial Pressure O2 131, Arterial Blood HCO3 19, Arterial Blood Total CO2 20.4, Arterial Blood Oxygen Saturation 98, Arterial Blood Base Excess -4.6, Red Test POS, Blood Gas Ventilator Setting NO, Blood Gas Inspired Oxygen 50% 10/14/20 07:03: Lactic Acid Level 1.16 10/15/20 01:10: White Blood Count 7.5, Red Blood Count 3.20, Hemoglobin 8.9, Hematocrit 29, Mean Corpuscular Volume 90, Mean Corpuscular Hemoglobin 28, Mean Corpuscular Hemoglobin Concent 31, Red Cell Distribution Width 17.1, Platelet Count 243, Mean Platelet Volume 10.0, Immature Granulocyte % (Auto) 1, Neutrophils (%) (Auto) 92, Lymphocytes (%) (Auto) 4, Monocytes (%) (Auto) 4, Eosinophils (%) (Auto) 0, Basophils (%) (Auto) 0, Neutrophils # (Auto) 6.9, Lymphocytes # (Auto) 0.3, Monocytes # (Auto) 0.3, Eosinophils # (Auto) 0.0, Basophils # (Auto) 0.0, Immature Granulocyte # (Auto) 0.0, Sodium Level 143, Potassium Level 4.1, Chloride Level 117, Carbon Dioxide Level 17, Anion Gap 9, Blood Urea Nitrogen 19, Creatinine 0.97, Estimat Glomerular Filtration Rate 55, BUN/Creatinine Ratio 20, Glucose Level 142, Calcium Level 8.4, Phosphorus Level 2.0, Magnesium Level 2.0 10/16/20 06:45: White Blood Count 14.0, Red Blood Count 3.46, Hemoglobin 9.5, Hematocrit 31, Mean Corpuscular Volume 90, Mean Corpuscular Hemoglobin 28, Mean Corpuscular Hemoglobin Concent 31, Red Cell Distribution Width 17.6, Platelet Count 345, Mean Platelet Volume 10.0, Immature Granulocyte % (Auto) 0, Neutrophils (%) (Auto) 89, Lymphocytes (%) (Auto) 4, Monocytes (%) (Auto) 6, Eosinophils (%) (Auto) 0, Basophils (%) (Auto) 0, Neutrophils # (Auto) 12.5, Lymphocytes # (Auto) 0.6, Monocytes # (Auto) 0.9, Eosinophils # (Auto) 0.0, Basophils # (Auto) 0.0, Immature Granulocyte # (Auto) 0.1, Sodium Level 145, Potassium Level 3.9, Chloride Level 116, Carbon Dioxide Level 17, Anion Gap 12, Blood Urea Nitrogen 27, Creatinine 1.17, Estimat Glomerular Filtration Rate 44, BUN/Creatinine Ratio 23, Glucose Level 114, Calcium Level 8.9, Neutrophils % (Manual) 93, Lymphocytes % (Manual) 3, Monocytes % (Manual) 3, Band Neutrophils 1, Hypochromasia SLIGHT, Poikilocytosis SLIGHT, Anisocytosis MODERATE, Jody Cells SLIGHT, Elliptocytes MODERATE, Acanthocytes SLIGHT, Corrected Calcium 9.4, Total Bilirubin 0.5, Aspartate Amino Transf (AST/SGOT) 40, Alanine Aminotransferase (ALT/SGPT) 42, Alkaline Phosphatase 74, Total Protein 5.8, Albumin 3.4 10/16/20 12:33: Lab Scanned Report Transfusion Reaction Form Discharge Home Medications: Active Scripts Active Protonix (Pantoprazole Sodium) 40 Mg Tablet.dr 40 Mg PO BID 30 Days Sucralfate 1 Gm Tablet 1 Gm PO QID 30 Days Mirtazapine 15 Mg Tab.rapdis 15 Mg PO HS 30 Days Tramadol HCl 50 Mg Tablet 50 Mg PO TID PRN Diltiazem 24Hr ER (Diltiazem HCl) 180 Mg Cap.er.24h 360 Mg PO DAILY Diltiazem 24Hr ER (Diltiazem HCl) 120 Mg Cap.er.24h 120 Mg PO HS 30 Days Digox (Digoxin) 125 Mcg Tablet 0.125 Mg PO DAILY Eliquis (Apixaban) 2.5 Mg Tablet 2.5 Mg PO BID 30 Days Ventolin Hfa (Albuterol Sulfate) 18 Gm Hfa.aer.ad 0 Gm IH RTQ6HR 30 Days Reported Rosuvastatin Calcium 5 Mg Tablet 5 Mg PO 1800 Vitamin D3 (Cholecalciferol (Vitamin D3)) 125 Mcg Capsule 125 Mcg PO 1200 Cranberry (Cranberry Extract) 500 Mg Tablet 500 Mg PO 1200 Aspirin EC (Aspirin) 81 Mg Tablet.dr 81 Mg PO 1200 Vitamin C (Ascorbate Calcium) 500 Mg Tablet 500 Mg PO DAILY K-Tab ER (Potassium Chloride) 10 Meq Tablet.er 10 Meq PO DAILY Furosemide 40 Mg Tablet 40 Mg PO DAILY Instructions to patient/family Please see electronic discharge instructions given to patient. Diagnosis/Problems Diagnosis/Problems (1) COVID-19 (2) Anemia Status: Acute Qualifiers: Qualified Codes: D50.9 - Iron deficiency anemia, unspecified (3) GI bleed Status: Acute Qualifiers: Qualified Codes: K92.2 - Gastrointestinal hemorrhage, unspecified GORDO OVERTON DO Oct 17, 2020 11:06
[2020-10-18] MEDS ORDERED: KCL 10 MEQ TAB (MICRO K) PO SCH (07:00)
[2020-10-18] MEDS ORDERED: FUROSEMIDE 40 MG (LASIX) TAB PO SCH (09:00)
== END 2020-10-17 13:15 | DRG 177 ==
LOC: EDUNIT# 14:44 → ER 14:46 → CSD 16:05 → ICU 10-14 05:35 → 4TH 10-15 12:33
PROVIDERS: ADMIT Internal Medicine; ATTEND Internal Medicine
PROC: 02HV33Z Insertion of Infusion Device into Superior Vena Cava, Percutaneous Approach (ICD-10-PCS; principal; 2020-10-14)
DX: U07.1 COVID-19 (principal); J96.00 Acute respiratory failure, unspecified whether with hypoxia or hypercapnia; K27.4 Chronic or unspecified peptic ulcer, site unspecified, with hemorrhage; N17.9 Acute kidney failure, unspecified; I48.92 Unspecified atrial flutter; I13.0 Hypertensive heart and chronic kidney disease with heart failure and stage 1 through stage 4 chronic kidney disease, or unspecified chronic kidney disease; I42.9 Cardiomyopathy, unspecified; D50.0 Iron deficiency anemia secondary to blood loss (chronic); Z66 Do not resuscitate; I48.91 Unspecified atrial fibrillation; I25.10 Atherosclerotic heart disease of native coronary artery without angina pectoris; N18.30 Chronic kidney disease, stage 3 unspecified; I50.9 Heart failure, unspecified; E87.6 Hypokalemia; K21.9 Gastro-esophageal reflux disease without esophagitis; M81.0 Age-related osteoporosis without current pathological fracture; F41.9 Anxiety disorder, unspecified; I34.0 Nonrheumatic mitral (valve) insufficiency; E78.5 Hyperlipidemia, unspecified; I65.23 Occlusion and stenosis of bilateral carotid arteries; Z79.01 Long term (current) use of anticoagulants; Z95.5 Presence of coronary angioplasty implant and graft; I25.2 Old myocardial infarction; Z87.01 Personal history of pneumonia (recurrent); Z79.2 Long term (current) use of antibiotics; Z79.82 Long term (current) use of aspirin; Z88.0 Allergy status to penicillin
CPT/HCPCS: 36415; 71045; 74018; 80048; 80053; 81000; 82805; 83605; 83735; 83880; 84100; 84145; 84443; 84484; 85007; 85014; 85018; 85025; 85027; 85652; 86141; 86850; 86900; 86901; 86920; 87040; 87635; 87804; 93005; 93041; 94640; 94760